=== PATIENT | male | born 1945 | race Caucasian/White ===

== ENCOUNTER 2016-03-16 14:19 | Inpatient (IN) | payer MEDICARE, OTHER ==
[2016-03-16] MEDS ORDERED: Sodium Chloride 0.9% 1000 ML 1,000 ML IV STA (14:54)
[2016-03-16] MEDS ORDERED: Sodium Chloride 0.9% 1000 ML 1,000 ML ONE (15:01)
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
[2016-03-16 15:05] LABS: BASOPHIL % 0.4 % (0.0-0.4); Granulocytes % 54.5 % (36.0-66.0); Lymphocytes % 33.1 % (24.0-44.0); Mean Cell Volume 83.4 fl (78-100); Mean Corpuscular Hemoglobin 26.8 pg (26-32); Mean Platelet Volume 9.6 fl (6-9.5); Platelet Count 270 K/mm3 (150-450); Red Blood Count 5.97 M/mm3 (4.1-5.6); Red Cell Distribution Width 16.2 % (11.5-14.0)
--- NOTE | 2016-03-16 15:21 | XRAY ---
Indication: Acute mental status change. Weakness. Comparison: November 29, 2015 Portable chest remains clear with a few calcified granulomas. Heart is not enlarged and again demonstrates previous CABG surgery. Vascularity normal. Bony thorax intact again with multilevel spinal fusion surgery and intact hardware. Impression: Stable nonacute chest with chronic features.
--- NOTE | 2016-03-16 15:22 | XRAY ---
Indication: Acute mental status change. Unresponsive. Multiple contiguous axial images obtained through the head without contrast. Comparison: None Ventriculosulcal pattern appears symmetric. No acute intracranial hemorrhage, abnormal extra-axial fluid collection, or mass effect. Fourth ventricle is midline without hydrocephalus. Bony calvarium intact. Minimal mucosal thickening of both ethmoid and both maxillary sinuses without fluid leveling. Mastoid air cells are pneumatized and clear. Impression: No acute intracranial abnormalities. Incidental paranasal sinus disease. CTDI is 61.17
[2016-03-16 15:51] LABS: ALBUMIN 3.7 g/dL (3.4-5.0); ALKALINE PHOSPHATASE 312 U/L (46-116); BILIRUBIN,TOTAL 0.9 mg/dL (0.2-1.0); BLOOD UREA NITROGEN 17 mg/dL (9-20); CHLORIDE 105 mEq/L (98-107); Carbon Dioxide 30.4 mEq/L (21-32); Glucose 107 MG/DL (70-110); Potassium 4.1 mEq/L (3.5-5.1); SGOT/AST 230 U/L (15-37); SGPT/ALT 190 U/L (12-78); SODIUM 142 mEq/L (136-145); Total Protein 8.1 gm/dL (6.4-8.2)
[2016-03-16 15:58] LABS: TROPONIN < 0.017 ng/ml (0.000-0.056)
[2016-03-16 16:33] LABS: Collection Type VOID
[2016-03-16 16:36] LABS: COMPLETE URINE MICROSCOPIC? YES
[2016-03-16 16:37] LABS: Bacteria PACKED /HPF (NEGATIVE); Epithelial Cells FEW /HPF (FEW); WBC >100 /HPF (0-5)
[2016-03-16] MEDS ORDERED: Zofran 4 MG/2 ML VIAL IV PRN (17:16)
[2016-03-16] MEDS ORDERED: TYLENOL 325 MG PO PRN (17:16)
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
[2016-03-16] MEDS: Sodium Chloride 0.9% 1000 ML 1,000 ML IV SCH (18:36)
[2016-03-16] MEDS: PROTONIX 40 MG IV IV SCH (18:39)
[2016-03-16] MEDS: Zosyn 3.375GM/100 Ml D5W 100 ML IV SCH ×2 (18:53→23:26)
[2016-03-16] MEDS ORDERED: Imdur 60MG PO ONE (19:02)
[2016-03-16] MEDS: MORPHINE SULFATE 2 MG INJ IV PRN (19:35)
[2016-03-16] MEDS ORDERED: ECOTRIN 81 MG PO ONE (20:00)
[2016-03-16] MEDS ORDERED: PLAVIX 75 MG Tablet PO ONE (20:00)
[2016-03-16] MEDS ORDERED: Colace 100 MG PO ONE (20:00)
[2016-03-16] MEDS ORDERED: Effexor XR 75 MG PO ONE (20:00)
[2016-03-16] MEDS: Ms Contin 100 MG PO SCH (23:27)
[2016-03-16] MEDS: ZOCOR 20MG PO SCH (23:27)
[2016-03-16] MEDS: Toprol-Xl 25MG Tablets PO SCH (23:27)
[2016-03-16] MEDS: Senokot-S Tablet PO SCH (23:28)
[2016-03-17] MEDS: MORPHINE SULFATE 2 MG INJ IV PRN (05:28)
[2016-03-17] MEDS: Zosyn 3.375GM/100 Ml D5W 100 ML IV SCH ×4 (05:31→23:54)
[2016-03-17] MEDS: Sodium Chloride 0.9% 1000 ML 1,000 ML IV SCH ×2 (05:36→15:25)
[2016-03-17 06:05] LABS: BASOPHIL % 0.4 % (0.0-0.4); Granulocytes % 55.3 % (36.0-66.0); Lymphocytes % 30.9 % (24.0-44.0); Mean Corpuscular Hemoglobin 26.9 pg (26-32); Mean Platelet Volume 9.9 fl (6-9.5); Monocytes % 10.4 % (0.0-12.0); Platelet Count 244 K/mm3 (150-450); Red Blood Count 5.01 M/mm3 (4.1-5.6); White Blood Count 5.4 K/mm3 (4.0-10.5)
[2016-03-17 06:18] LABS: ALKALINE PHOSPHATASE 260 U/L (46-116); ANION GAP 10.6 MEQ/L (5-15); BILIRUBIN,TOTAL 0.3 mg/dL (0.2-1.0); BLOOD UREA NITROGEN 15 mg/dL (9-20); CHLORIDE 109 mEq/L (98-107); Carbon Dioxide 28.7 mEq/L (21-32); Glucose 111 MG/DL (70-110); Potassium 4.1 mEq/L (3.5-5.1); SGOT/AST 124 U/L (15-37); SGPT/ALT 173 U/L (12-78); SODIUM 144 mEq/L (136-145); Total Protein 6.5 gm/dL (6.4-8.2)
[2016-03-17] MEDS ORDERED: NON-FORMULARY ITEM (Fluticasone/Vilanterol [Breo Ellipta 100-25 Mcg Inh] 1 EACH) IH PRN (06:53)
[2016-03-17] MEDS ORDERED: xanAX 0.5 MG PO PRN (06:53)
[2016-03-17] MEDS ORDERED: Duragesic 25MCG Patch TOP SCH (07:00)
[2016-03-17] MEDS ORDERED: Nitrostat 0.4 MG (ED) SL SCH (07:00)
[2016-03-17] MEDS: Colace 100 MG PO SCH ×4 (07:52→21:07)
[2016-03-17] MEDS: Advair Hfa 115/21 Common canister IH SCH ×2 (08:04→19:27)
[2016-03-17] MEDS: Dulcolax 10 MG SUPP RC SCH (08:11)
[2016-03-17] MEDS ORDERED: NON-FORMULARY ITEM (Multivitamin [Multivitamins] 1 EACH) PO SCH (10:00)
[2016-03-17] MEDS ORDERED: NON-FORMULARY ITEM (Venlafaxine Hcl [Venlafaxine Hcl Er] 150 MG) PO SCH (10:00)
[2016-03-17] MEDS ORDERED: NON-FORMULARY ITEM (Ranitidine Hcl [Zantac] 150 MG) PO SCH (10:00)
[2016-03-17] MEDS ORDERED: OMEGA ACID ETHYL ESTERS PO SCH (10:00)
--- NOTE | 2016-03-17 10:01 | XRAY ---
Indication: Elevated liver enzymes. Cholecystectomy. Two-dimensional right upper quadrant abdominal sonogram performed. Comparison: December 21, 2014 Gallbladder is now surgically absent. Common bile duct measures 5.4 mm. No intrahepatic biliary distention. Visualized portions of the liver, pancreas, and right kidney appear sonographically unremarkable. No ascites. Right kidney measures 9.4 cm in length. Impression: Cholecystectomy. Remaining right upper quadrant abdominal sonogram is negative.
[2016-03-17] MEDS: THERAGRAN MULTIVITAMIN PO SCH (10:45)
[2016-03-17] MEDS: Imdur 60MG PO SCH (10:46)
[2016-03-17] MEDS: Effexor XR 75 MG PO SCH (10:46)
[2016-03-17] MEDS: ECOTRIN 81 MG PO SCH (10:46)
[2016-03-17] MEDS: Pepcid 20 MG PO SCH ×2 (10:46→21:07)
[2016-03-17] MEDS: Miralax Powder 17GM PACKET PO SCH (10:47)
[2016-03-17] MEDS: ENOXAPARIN SODIUM SQ SCH (10:48)
[2016-03-17] MEDS: Ms Contin 100 MG PO SCH ×2 (10:48→21:07)
[2016-03-17] MEDS: PLAVIX 75 MG Tablet PO SCH (10:48)
[2016-03-17] MEDS: FEOSOL 325 MG PO SCH (10:48)
[2016-03-17] MEDS: Toprol-Xl 25MG Tablets PO SCH ×2 (10:49→21:07)
[2016-03-17] MEDS: PROTONIX 40 MG IV IV SCH (10:49)
--- NOTE | 2016-03-17 14:01 | PCM.NOTE ---
Date and Time: 03/17/16 1356 Subjective Assessment: more alert today but having his chronic pains across his abdomen this is usually helped with his TENS unit. no new symptoms eating well. No focal symptoms. Objective Exam General Appearance: no apparent distress, alert Neurologic Exam: oriented x 3, cooperative Skin Exam: warm, dry, No rash Eye Exam: No scleral icterus, No pale conjunctivae Ears, Nose, Throat Exam: moist mucous membranes Neck Exam: non-tender, supple Respiratory Exam: normal breath sounds, lungs clear Cardiovascular Exam: regular rate/rhythm, normal heart sounds Gastrointestinal/Abdomen Exam: soft, No normal bowel sounds (hypoactive), No tenderness Extremity Exam: other (paralysis bilaterla lower legs), No mykel's sign, No pedal edema OBJECTIVE DATA Vital Signs: Vital Signs - 24 hr Temp Pulse Resp BP BP Pulse Ox 03/17/16 12:00 98.4 F 68 18 133/91 98 03/17/16 07:16 98.2 F 58 L 20 151/70 94 L 03/17/16 07:00 67 18 93 L 03/17/16 04:00 97.8 F 60 18 135/62 91 L 03/17/16 01:00 97.9 F 82 20 115/76 97 03/17/16 00:00 97.9 F 82 20 115/76 97 03/16/16 19:42 98 03/16/16 19:33 97.7 F 61 20 196/93 97 03/16/16 18:05 97.5 F 90 20 199/98 99 03/16/16 17:30 99 03/16/16 17:09 97.5 F 90 20 199/98 99 03/16/16 16:50 97.5 F 90 20 199/98 99 03/16/16 16:15 78 16 162/76 97 Oxygen-Last 24 hours O2 Percentage 2 Liters = 28% O2 Percentage 2 Liters = 28% O2 Percentage 2 Liters = 28% Pain Assessment - Last Documented Pain Intensity 7 Pain Scale Used 0-10 Pain Scale Intake and Output: Intake & Output 03/15/16 03/16/16 03/17/16 03/18/16 11:59 11:59 11:59 11:59 Intake Total 1659 480 Output Total 1150 Balance 509 480 Weight 91.852 kg Lab Results: Accuchecks Date 03/17/16 Date 03/17/16 Date 03/16/16 Time 11:30 Time 07:30 Time 22:00 Accucheck Value: 109 Accucheck Value: 109 Accucheck Value: 155 Lab Results-Last 24 Hours 03/16/16 03/17/16 03/17/16 Range/Units 17:33 05:25 05:25 WBC 5.4 (4.0-10.5) K/mm3 RBC 5.01 (4.1-5.6) M/mm3 Hgb 13.5 (12.5-18.0) gm/dl Hct 42.6 (42-50) % MCV 85.0 (78-100) fl MCH 26.9 (26-32) pg MCHC 31.7 L (32-36) g/dl RDW 16.0 H (11.5-14.0) % Plt Count 244 (150-450) K/mm3 MPV 9.9 H (6-9.5) fl Gran % 55.3 (36.0-66.0) % Lymphocytes % 30.9 (24.0-44.0) % Monocytes % 10.4 (0.0-12.0) % Eosinophils % 3.0 (0.00-5.0) % Basophils % 0.4 (0.0-0.4) % Basophils # 0.02 (0-0.4) Sodium 144 (136-145) mEq/L Potassium 4.1 (3.5-5.1) mEq/L Chloride 109 H (98-107) mEq/L Carbon Dioxide 28.7 (21-32) mEq/L Anion Gap 10.6 (5-15) MEQ/L BUN 15 (9-20) mg/dL Creatinine 0.79 (0.55-1.30) mg/dl Estimated GFR > 60 ML/MIN Glucose 111 H (70-110) MG/DL Hemoglobin A1c 5.4 (4.5-6.2) Calcium 8.4 L (8.5-10.1) mg/dL Total Bilirubin 0.3 (0.2-1.0) mg/dL AST 124 H (15-37) U/L ALT 173 H (12-78) U/L Alkaline Phosphatase 260 H (46-116) U/L Serum Total Protein 6.5 (6.4-8.2) gm/dL Albumin 3.0 L (3.4-5.0) g/dL Prealbumin 19.5 (18.0-35.7) mg/dL Radiology Exams: Radiology Procedures Category Date Time Status Ultrasound Liver or Spleen [LIVER OR SPLEEN] [US] Exams 03/17/16 09:00 Completed Routine Multi-Disciplinary Progress Notes: Multi-Disciplinary Progress Notes 03/17/16 10:06 Case Management Note by Louise Gillette SPOKE WITH AND PT .SHE DOES MOST OF HIS CARE . HAS VISITING NURSE COME 2 DAYS A WEEK. DENIES ANY NEEDS AT THIS TIME WILL CONT TO MONITOR ALL DISCHARGE NEEDS. Initialized on 03/17/16 10:06 - END OF NOTE Assessment/Plan (1) UTI (urinary tract infection) Current Visit: Yes Status: Acute Assessment & Plan: continue zosyn pending culture with the elevated liver enzymes and the acute encephalopathy with normal ammonia likely from the toxic encephalopathy assicated with the UTI as well as build up of his sedating medications try to cut back on his sedating medications and simplify the pain treatment the morphine down to ER 100mg bid now wihtout the fentanyl and hold the benzodiazepines and cut back a little on the lyrica to 150 bid Code(s): N39.0 - URINARY TRACT INFECTION, SITE NOT SPECIFIED (2) Encephalopathy acute Current Visit: Yes Status: Acute Code(s): G93.40 - ENCEPHALOPATHY, UNSPECIFIED (3) Abnormal transaminases Current Visit: Yes Status: Acute Assessment & Plan: improving await liver u/s had ct abd/pelvis 2 months ago Code(s): R74.0 - NONSPEC ELEV OF LEVELS OF TRANSAMNS & LACTIC ACID DEHYDRGNSE (4) Chronic back pain Current Visit: Yes Status: Chronic Code(s): M54.9 - DORSALGIA, UNSPECIFIED; G89.29 - OTHER CHRONIC PAIN (5) Hypertension Current Visit: Yes Status: Chronic Code(s): I10 - ESSENTIAL (PRIMARY) HYPERTENSION (6) Coronary artery disease Current Visit: Yes Status: Chronic Code(s): I25.10 - ATHSCL HEART DISEASE OF [place] CORONARY ARTERY W/O ANG PCTRS (7) Neurogenic bowel Current Visit: Yes Status: Chronic Code(s): K59.2 - NEUROGENIC BOWEL, NOT ELSEWHERE CLASSIFIED (8) Neurogenic bladder Current Visit: Yes Status: Chronic Code(s): N31.9 - NEUROMUSCULAR DYSFUNCTION OF BLAD[place], UNSPECIFIED
[2016-03-17] MEDS ORDERED: TYLENOL 325 MG PO PRN (14:20)
[2016-03-17] MEDS ORDERED: Imdur 60MG PO ONE (18:58)
[2016-03-17] MEDS: ZOCOR 20MG PO SCH (21:07)
[2016-03-17] MEDS: LYRICA 150MG PO SCH (21:07)
[2016-03-17] MEDS: Senokot-S Tablet PO SCH ×2 (21:08)
[2016-03-17] MEDS ORDERED: NON-FORMULARY ITEM (Lorazepam [Ativan] 2 MG) PO SCH (22:00)
[2016-03-18] MEDS: Sodium Chloride 0.9% 1000 ML 1,000 ML IV SCH ×2 (03:32→15:56)
[2016-03-18] MEDS: Zosyn 3.375GM/100 Ml D5W 100 ML IV SCH ×3 (05:25→18:29)
[2016-03-18] MEDS: Advair Hfa 115/21 Common canister IH SCH ×2 (06:37→19:06)
[2016-03-18] MEDS: PROTONIX 40 MG IV IV SCH (09:49)
[2016-03-18] MEDS: Miralax Powder 17GM PACKET PO SCH (09:49)
[2016-03-18] MEDS: Ms Contin 100 MG PO SCH ×2 (09:50→21:20)
[2016-03-18] MEDS: Imdur 60MG PO SCH (09:50)
[2016-03-18] MEDS: FEOSOL 325 MG PO SCH (09:50)
[2016-03-18] MEDS: PLAVIX 75 MG Tablet PO SCH (09:50)
[2016-03-18] MEDS: Toprol-Xl 25MG Tablets PO SCH ×2 (09:50→21:20)
[2016-03-18] MEDS: Effexor XR 75 MG PO SCH (09:50)
[2016-03-18] MEDS: ECOTRIN 81 MG PO SCH (09:50)
[2016-03-18] MEDS: LYRICA 150MG PO SCH ×2 (09:50→21:20)
[2016-03-18] MEDS: ENOXAPARIN SODIUM SQ SCH (09:50)
[2016-03-18] MEDS: THERAGRAN MULTIVITAMIN PO SCH (09:50)
[2016-03-18] MEDS: Pepcid 20 MG PO SCH ×2 (09:50→21:20)
[2016-03-18] MEDS: Colace 100 MG PO SCH ×3 (09:52→21:20)
--- NOTE | 2016-03-18 20:49 | PCM.NOTE ---
Date and Time: 03/18/162044 Subjective Assessment: Feeling better yesterday drowsy this am still with the chronic pains in the abdomen wrapping around. BP running high losartan was stopped recentl. Objective Exam General Appearance: obese Neurologic Exam: oriented x 3, cooperative, other (somewhat slow response time today) Skin Exam: warm, dry Eye Exam: No scleral icterus Ears, Nose, Throat Exam: moist mucous membranes Neck Exam: non-tender, supple Respiratory Exam: normal breath sounds, lungs clear Cardiovascular Exam: regular rate/rhythm, normal heart sounds Gastrointestinal/Abdomen Exam: soft, normal bowel sounds, No tenderness Extremity Exam: normal inspection, No calf tenderness, No pedal edema OBJECTIVE DATA Vital Signs: Vital Signs - 24 hr Temp Pulse Resp BP Pulse Ox 03/18/16 19:09 60 18 93 L 03/18/16 16:00 97.8 F 63 18 151/70 95 03/18/16 11:28 97.5 F 53 L 18 197/89 95 03/18/16 06:56 98.1 F 61 20 170/79 94 L 03/18/16 06:39 62 16 94 L 03/18/16 04:00 98.3 F 54 L 17 167/90 96 03/18/16 00:00 97.9 F 65 17 172/83 92 L Pain Assessment - Last Documented Pain Intensity 4 Pain Scale Used 0-10 Pain Scale Intake and Output: Intake & Output 03/16/16 03/17/16 03/18/16 03/19/16 11:59 11:59 11:59 11:59 Intake Total 4012 1729 Output Total 3350 1600 Balance 662 129 Weight 92.986 kg Multi-Disciplinary Progress Notes: Multi-Disciplinary Progress Notes 03/18/16 13:22 Case Management Note by Louise Gillette AN IMPORTANT MESSAGE FROM MEDICARE GIVEN TO PT. SIGNED COPY TO CHART AND TO PT. Initialized on 03/18/16 13:22 - END OF NOTE 03/18/16 10:23 Case Management Note by Louise Gillette SPOKE WITH AND PT . PT HAS HHC AT HOME AND DOES ALL HIS CARE. WILL CONT TO MONITOR ALL DISCHARGE NEEDS. GIVEN INFORMATION ON FRUIT STUFFER WITH CATH PT. Initialized on 03/18/16 10:23 - END OF NOTE Assessment/Plan (1) UTI (urinary tract infection) Current Visit: Yes Status: Acute Assessment & Plan: culture pending improving on the zosyn the encephalopathy is improving suspect secondary to the infection with the narcotics and benzo the chinyere was aded back but only 1 dose last night and lower dose at 150 will continue this for now and see if this causes any increase in his encephalopathy await culture results priot o change to po antibiotics with the q4h straight cathing still for neurogenic bladder. Code(s): N39.0 - URINARY TRACT INFECTION, SITE NOT SPECIFIED (2) Encephalopathy acute Current Visit: Yes Status: Acute Code(s): G93.40 - ENCEPHALOPATHY, UNSPECIFIED (3) Abnormal transaminases Current Visit: Yes Status: Acute Assessment & Plan: liver u/s ok repeat trend in am hepatitis panel is pending Code(s): R74.0 - NONSPEC ELEV OF LEVELS OF TRANSAMNS & LACTIC ACID DEHYDRGNSE (4) Chronic back pain Current Visit: Yes Status: Chronic Code(s): M54.9 - DORSALGIA, UNSPECIFIED; G89.29 - OTHER CHRONIC PAIN (5) Hypertension Current Visit: Yes Status: Chronic Code(s): I10 - ESSENTIAL (PRIMARY) HYPERTENSION (6) Coronary artery disease Current Visit: Yes Status: Chronic Code(s): I25.10 - ATHSCL HEART DISEASE OF [place] CORONARY ARTERY W/O ANG PCTRS (7) Neurogenic bowel Current Visit: Yes Status: Chronic Code(s): K59.2 - NEUROGENIC BOWEL, NOT ELSEWHERE CLASSIFIED (8) Neurogenic bladder Current Visit: Yes Status: Chronic Code(s): N31.9 - NEUROMUSCULAR DYSFUNCTION OF BLADDER, UNSPECIFIED
[2016-03-18] MEDS: Cozaar 50 MG PO SCH (21:19)
[2016-03-18] MEDS: ZOCOR 20MG PO SCH (21:20)
[2016-03-18] MEDS: Senokot-S Tablet PO SCH ×2 (21:20→21:21)
[2016-03-19] MEDS: Zosyn 3.375GM/100 Ml D5W 100 ML IV SCH ×2 (00:01→05:12)
[2016-03-19 01:12] LABS: HEPATITIS B VIRUS CORE TOT AB Non-Reactive (Non-Reactive); Hepatitis B Surface Ab.Quant. <3.50 mIU/mL (0.00-8.49)
[2016-03-19] MEDS: Sodium Chloride 0.9% 1000 ML 1,000 ML IV SCH (05:11)
[2016-03-19 06:06] LABS: BILIRUBIN,TOTAL 0.3 mg/dL (0.2-1.0); Direct Bilirubin 0.11 MG/DL (0.0-0.2); Total Protein 6.7 gm/dL (6.4-8.2)
[2016-03-19] MEDS: Advair Hfa 115/21 Common canister IH SCH (06:36)
[2016-03-19 08:06] VITALS: BP 182/90; PULSE 60; O2SAT 97
--- NOTE | 2016-03-19 08:43 | PCM.DCORD ---
- Discharge Discharge Date: 03/19/16 Disposition: Home, Self-Care Condition: Stable Prescriptions: Amoxicillin/Potassium Clav [Augmentin 875-125 Tablet] 875 mg PO BID #14 tablet Losartan/Hydrochlorothiazide [Losartan-Hctz 100-12.5 mg Tab] 1 each PO DAILY #0 tablet Pregabalin [Lyrica 150Mg] 150 mg PO BID #60 capsule Medications: Home Medications Alprazolam [Xanax 0.5 mg] 0.5 mg PO Q6HPRN PRN 06/03/15 [Confirmed 03/16/16] Aspirin [Aspir-Low] 81 mg PO DAILY 06/03/15 [Confirmed 03/16/16] Bisacodyl 10 mg [Dulcolax 10 MG SUPP] 10 mg RC UD 06/03/15 [Confirmed 05/01] Docusate Sodium 100 mg [Colace 100 MG] 100 mg PO UD 06/03/15 [Confirmed ] Fluticasone/Vilanterol [Breo Ellipta 100-25 Mcg INH] 1 each IH BIDPRN PRN [Confirmed 03/16/16] Lorazepam [Ativan] 2 mg PO HS 06/03/15 [Confirmed 03/16/16] Morphine Sulfate [Morphine Sulfate ER] 100 mg PO TIDPRN PRN 06/03/15 [Confirmed 03/16/16] Multivitamin [Multivitamins] 1 each PO DAILY 06/03/15 [Confirmed 03/16/16] [place]-3 Acid Ethyl Esters [Lovaza] 2 cap PO BID 06/03/15 [Confirmed 03/16/16] Polyethylene Glycol 3350 17 gm PO QAM 06/03/15 [Confirmed 03/16/16] Venlafaxine HCl [Venlafaxine HCl ER] 150 mg PO DAILY 06/03/15 [Confirmed ] Cranberry Extract [Cranberry] 500 mg PO DAILY 12/25/15 [Confirmed 03/16/16] Ferrous Sulfate 325 mg [Feosol 325 mg] 325 mg PO DAILY 12/25/15 [ Confirmed 03/16/16] Metoprolol Succinate 25 mg Xl* [Toprol-Xl 25MG Tablets] 25 mg PO BID [Confirmed 03/16/16] Nitroglycerin 0.4 mg (Ed) [Nitrostat 0.4 MG (ED)] 0.4 mg SL UD 12/25/15 [ Confirmed 03/16/16] Ranitidine HCl [Zantac] 150 mg PO BID 12/25/15 [Confirmed 03/16/16] Sennosides/Docusate Sodium [Senna Laxative Tablet] 2 each PO HS 12/25/15 [ Confirmed 03/16/16] Atorvastatin Calcium 40 mg DAILY 03/16/16 [Confirmed 03/16/16] Clopidogrel Bisulfate 75 mg [PLAVIX 75 MG Tablet] 75 mg DAILY 03/16/16 [ Confirmed 03/16/16] Fentanyl 25Mcg Patch [Duragesic 25MCG Patch] 25 mcg TOP Q3D 03/16/16 [ Confirmed 03/16/16] Pregabalin [Lyrica] 225 mg PO BID 03/17/16 [Confirmed 03/17/16] Active Inpatient Medications Acetaminophen (Tylenol 325 Mg) 650 mg PO Q4H PRN PRN PRN Reason: PAIN AND/OR FEVER Stop: 04/15/16 17:15 Last Admin: 03/17/16 15:11 Dose: 650 mg Acetaminophen (Tylenol 325 Mg) 325 mg PO Q4H PRN PRN PRN Reason: PAIN, FEVER, HEADACHE Stop: 04/16/16 14:19 Aspirin (Ecotrin 81 Mg) 81 mg PO DAILY [facility] Stop: 04/16/16 09:59 Last Admin: 03/18/16 09:50 Dose: 81 mg Bisacodyl (Dulcolax 10 Mg Supp) 10 mg RC QOD [facility] Stop: 04/16/16 09:59 Last Admin: 03/17/16 08:11 Dose: 10 mg Clopidogrel Bisulfate (Plavix 75 Mg Tablet) 75 mg PO DAILY [facility] Stop: 04/16/16 09:59 Last Admin: 03/18/16 09:50 Dose: 75 mg Docusate Sodium (Colace 100 Mg) 200 mg PO QAM [facility] Stop: 04/16/16 06:59 Last Admin: 03/18/16 09:52 Dose: 200 mg Docusate Sodium (Colace 100 Mg) 100 mg PO LUNCH [facility] Stop: 04/16/16 11:59 Last Admin: 03/18/16 12:01 Dose: 100 mg Docusate Sodium (Colace 100 Mg) 200 mg PO QPM [facility]AI Stop: 04/16/16 21:59 Last Admin: 03/18/16 21:20 Dose: 200 mg Enoxaparin Sodium (Enoxaparin Sodium) 40 mg SQ DAILY [facility] Stop: 04/16/16 09:59 Last Admin: 03/18/16 09:50 Dose: 40 mg Famotidine (Pepcid 20 Mg) 20 mg PO BID [facility] Stop: 04/16/16 09:59 Last Admin: 03/18/16 21:20 Dose: 20 mg Ferrous Sulfate (Feosol 325 Mg) 325 mg PO DAILY [facility] Stop: 04/16/16 09:59 Last Admin: 03/18/16 09:50 Dose: 325 mg Sodium Chloride (Sodium Chloride 0.9% 1000 Ml) 1,000 mls @ 100 mls/hr IV .Q10H [facility] Stop: 04/15/16 17:15 Last Admin: 03/19/16 05:11 Dose: 100 mls/hr Piperacillin Sod/Tazobactam Sod (Zosyn 3.375gm/100 Ml D5w) 100 mls @ 100 mls/ hr IV Q6HT [facility] Stop: 04/15/16 17:59 Last Admin: 03/19/16 05:12 Dose: 100 mls/hr Isosorbide Mononitrate (Imdur 60mg) 60 mg PO DAILY [facility] Stop: 04/16/16 09:59 Last Admin: 03/18/16 09:50 Dose: 60 mg Losartan Potassium (Cozaar 50 Mg) 50 mg PO DAILY [facility] Stop: 04/17/16 21:59 Last Admin: 03/18/16 21:19 Dose: 50 mg Metoprolol Succinate (Toprol-Xl 25mg Tablets) 25 mg PO BID [facility] Stop: 04/15/16 21:59 Last Admin: 03/18/16 21:20 Dose: 25 mg Morphine Sulfate (Morphine Sulfate 2 Mg Inj) 2 mg IV Q4H PRN PRN PRN Reason: PAIN Stop: 03/21/16 17:15 Last Admin: 03/17/16 05:28 Dose: 2 mg Morphine Sulfate (Ms Contin 100 Mg) 100 mg PO BID [facility] Stop: 03/21/16 21:59 Last Admin: 03/18/16 21:20 Dose: 100 mg Multivitamins (Theragran Multivitamin) 1 tab PO DAILY [facility] Stop: 04/16/16 09:59 Last Admin: 03/18/16 09:50 Dose: 1 tab Ondansetron HCl (Zofran 4 Mg/2 Ml Vial) 4 mg IV Q6H PRN PRN PRN Reason: NAUSEA/VOMITING Stop: 04/15/16 17:15 Pantoprazole Sodium (Protonix 40 Mg Iv) 40 mg IV Q24H10 [facility] Stop: 04/15/16 17:59 Last Admin: 03/18/16 09:49 Dose: 40 mg Polyethylene Glycol (Miralax Powder 17gm Packet) 17 gm PO QAM [facility] Stop: 04/16/16 09:59 Last Admin: 03/18/16 09:49 Dose: 17 gm Pregabalin (Lyrica 150mg) 150 mg PO BID [facility] Stop: 04/16/16 21:59 Last Admin: 03/18/16 21:20 Dose: 150 mg Fluticasone/Salmeterol (Advair Hfa 115/21 Common Canister*) 2 puff IH BIDRT [facility] Stop: 04/16/16 06:59 Last Admin: 03/19/16 06:36 Dose: 2 puff Senna/Docusate Sodium (Senokot-S Tablet) 1 udtab PO [facility] Stop: 04/15/16 21:59 Last Admin: 03/18/16 21:21 Dose: Not Given Senna/Docusate Sodium (Senokot-S Tablet) 2 udtab PO [facility] Stop: 04/16/16 21:59 Last Admin: 03/18/16 21:20 Dose: 2 udtab Simvastatin (Zocor 20mg) 40 mg PO HS [facility] Stop: 04/15/16 21:59 Last Admin: 03/18/16 21:20 Dose: 40 mg Venlafaxine HCl (Effexor Xr 75 Mg) 150 mg PO DAILY [facility] Stop: 04/16/16 09:59 Last Admin: 03/18/16 09:50 Dose: 150 mg Instructions: Urinary Tract Infection (UTI) Follow up with: MICHELLE MATOS [Primary Care Provider] - 1 Week
--- NOTE | 2016-03-19 08:50 | PCM.DS ---
Discharge Summary Date of Admission: 03/17/16 13:56 Date of Discharge: 03/19/16 Admitting Physician: MICHELLE MATOS Primary Care Provider: MICHELLE MATOS Allergies Allergies No Known Drug Allergies Allergy (Verified 03/16/16 18:44) Hospital Summary - Hospital Course Hospital Course: He presented to ED with altered mental status that had been worsening for 2 weeks with increased fatigue. THis all started after he had several alcoholic drinks on [place] which he usually does not do. He was not eating sleeping all the time very confused. He has paralysis but had no new focal deficits. On arrival he had a UTI and elevated liver enzymes. His lyrica and benzodiazepines where held and his pain medicine was cut back further and his mental status improved greatly with no focal deficits. He continues to have the severe thoracic back pain radiating around to the abdomen and for this was using his TENS unit. He was tested for viral hepatitis negative and the liver enzyme elevation resolved. He was treated with Zosyn and urine culture returned with E. coli sensitive to augmentin and will be discharged home to complete 10 day coarse. He is to not restart his benzodiazepines and continue for now the dose of pain medication we have him on which is 100 mg morphine ER BID and continue to cut back as we are doing in the office until he sees pain mgmt. He has follow up with cardiology in 1 week that was already set up. His losartan was recently stopped by cards but inpatient bp after rehydration and improving mental status has been running 170 to 190 systolic and the losartan was restarted and he will continue on this and monitor the BP. - Vitals & Intake/Output Vital Signs: Vital Signs Temperature 97.7 F 03/19/16 08:00 Pulse Rate 60 03/19/16 08:00 Respiratory Rate 20 03/19/16 08:00 Blood Pressure 182/90 03/19/16 08:00 O2 Sat by Pulse Oximetry 97 03/19/16 08:00 Oxygen-Last Documented O2 Percentage 2 Liters = 28% Intake & Output: Intake & Output 03/16/16 03/17/16 03/18/16 03/19/16 11:59 11:59 11:59 11:59 Intake Total 4012 3558 Output Total 3350 2400 Balance 662 1158 Weight 92.986 kg 90.718 kg - Lab Result Diagrams: 03/17/16 05:25 03/17/16 05:25 Lab Results-Last 24 Hrs: Lab Results-Last 24 Hours 03/19/16 Range/Units 05:40 Total Bilirubin 0.3 (0.2-1.0) mg/dL Direct Bilirubin 0.11 (0.0-0.2) MG/DL AST 29 (15-37) U/L ALT 78 (12-78) U/L Alkaline Phosphatase 195 H (46-116) U/L Serum Total Protein 6.7 (6.4-8.2) gm/dL Albumin 3.0 L (3.4-5.0) g/dL Discharge Exam General Appearance: no apparent distress Neurologic Exam: alert, oriented x 3, cooperative Skin Exam: warm, dry Ears, Nose, Throat Exam: moist mucous membranes Neck Exam: normal inspection, non-tender, supple Respiratory Exam: normal breath sounds Cardiovascular Exam: regular rate/rhythm, normal heart sounds Gastrointestinal/Abdomen Exam: soft, normal bowel sounds, No tenderness Extremity Exam: normal inspection Back Exam: No rash Final Diagnosis/Problem List - Final Discharge Diagnosis/Problem (1) UTI (urinary tract infection) Current Visit: Yes Status: Acute (2) Encephalopathy acute Current Visit: Yes Status: Acute (3) Abnormal transaminases Current Visit: Yes Status: Acute (4) Chronic back pain Current Visit: Yes Status: Chronic (5) Hypertension Current Visit: Yes Status: Chronic (6) Coronary artery disease Current Visit: Yes Status: Chronic (7) Neurogenic bowel Current Visit: Yes Status: Chronic (8) Neurogenic bladder Current Visit: Yes Status: Chronic - Discharge Discharge Date: 03/19/16 Disposition: Home, Self-Care Condition: Stable Prescriptions: Amoxicillin/Potassium Clav [Augmentin 875-125 Tablet] 875 mg PO BID #14 tablet Losartan/Hydrochlorothiazide [Losartan-Hctz 100-12.5 mg Tab] 1 each PO DAILY #0 tablet Pregabalin [Lyrica 150Mg] 150 mg PO BID #60 capsule Medications: Home Medications Aspirin [Aspir-Low] 81 mg PO DAILY 06/03/15 [Confirmed 03/16/16] Bisacodyl 10 mg [Dulcolax 10 MG SUPP] 10 mg RC UD 06/03/15 [Confirmed 05/01] Docusate Sodium 100 mg [Colace 100 MG] 100 mg PO UD 06/03/15 [Confirmed ] Fluticasone/Vilanterol [Breo Ellipta 100-25 Mcg INH] 1 each IH BIDPRN PRN [Confirmed 03/16/16] Multivitamin [Multivitamins] 1 each PO DAILY 06/03/15 [Confirmed 03/16/16] [place]-3 Acid Ethyl Esters [Lovaza] 2 cap PO BID 06/03/15 [Confirmed 03/16/16] Polyethylene Glycol 3350 17 gm PO QAM 06/03/15 [Confirmed 03/16/16] Venlafaxine HCl [Venlafaxine HCl ER] 150 mg PO DAILY 06/03/15 [Confirmed ] Cranberry Extract [Cranberry] 500 mg PO DAILY 12/25/15 [Confirmed 03/16/16] Ferrous Sulfate 325 mg [Feosol 325 mg] 325 mg PO DAILY 12/25/15 [ Confirmed 03/16/16] Metoprolol Succinate 25 mg Xl* [Toprol-Xl 25MG Tablets] 25 mg PO BID [Confirmed 03/16/16] Nitroglycerin 0.4 mg (Ed) [Nitrostat 0.4 MG (ED)] 0.4 mg SL UD 12/25/15 [ Confirmed 03/16/16] Ranitidine HCl [Zantac] 150 mg PO BID 12/25/15 [Confirmed 03/16/16] Sennosides/Docusate Sodium [Senna Laxative Tablet] 2 each PO HS 12/25/15 [ Confirmed 03/16/16] Atorvastatin Calcium 40 mg DAILY 03/16/16 [Confirmed 03/16/16] Clopidogrel Bisulfate 75 mg [PLAVIX 75 MG Tablet] 75 mg DAILY 03/16/16 [ Confirmed 03/16/16] Amoxicillin/Potassium Clav [Augmentin 875-125 Tablet] 875 mg PO BID #14 tablet 03/19/16 Losartan/Hydrochlorothiazide [Losartan-Hctz 100-12.5 mg Tab] 1 each PO DAILY #0 tablet 03/19/16 Morphine Sulfate [Morphine Sulfate ER] 100 mg PO BID #0 03/19/16 [Confirmed 05/01] Pregabalin [Lyrica 150Mg] 150 mg PO BID #60 capsule 03/19/16 Active Inpatient Medications Acetaminophen (Tylenol 325 Mg) 650 mg PO Q4H PRN PRN PRN Reason: PAIN AND/OR FEVER Stop: 04/15/16 17:15 Last Admin: 03/17/16 15:11 Dose: 650 mg Acetaminophen (Tylenol 325 Mg) 325 mg PO Q4H PRN PRN PRN Reason: PAIN, FEVER, HEADACHE Stop: 04/16/16 14:19 Aspirin (Ecotrin 81 Mg) 81 mg PO DAILY [facility] Stop: 04/16/16 09:59 Last Admin: 03/18/16 09:50 Dose: 81 mg Bisacodyl (Dulcolax 10 Mg Supp) 10 mg RC QOD [facility] Stop: 04/16/16 09:59 Last Admin: 03/17/16 08:11 Dose: 10 mg Clopidogrel Bisulfate (Plavix 75 Mg Tablet) 75 mg PO DAILY [facility] Stop: 04/16/16 09:59 Last Admin: 03/18/16 09:50 Dose: 75 mg Docusate Sodium (Colace 100 Mg) 200 mg PO QAM [facility] Stop: 04/16/16 06:59 Last Admin: 03/18/16 09:52 Dose: 200 mg Docusate Sodium (Colace 100 Mg) 100 mg PO LUNCH [facility] Stop: 04/16/16 11:59 Last Admin: 03/18/16 12:01 Dose: 100 mg Docusate Sodium (Colace 100 Mg) 200 mg PO QPM [facility] Stop: 04/16/16 21:59 Last Admin: 03/18/16 21:20 Dose: 200 mg Enoxaparin Sodium (Enoxaparin Sodium) 40 mg SQ DAILY [facility] Stop: 04/16/16 09:59 Last Admin: 03/18/16 09:50 Dose: 40 mg Famotidine (Pepcid 20 Mg) 20 mg PO BID [facility] Stop: 04/16/16 09:59 Last Admin: 03/18/16 21:20 Dose: 20 mg Ferrous Sulfate (Feosol 325 Mg) 325 mg PO DAILY [facility] Stop: 04/16/16 09:59 Last Admin: 03/18/16 09:50 Dose: 325 mg Sodium Chloride (Sodium Chloride 0.9% 1000 Ml) 1,000 mls @ 100 mls/hr IV .Q10H [facility] Stop: 04/15/16 17:15 Last Admin: 03/19/16 05:11 Dose: 100 mls/hr Piperacillin Sod/Tazobactam Sod (Zosyn 3.375gm/100 Ml D5w) 100 mls @ 100 mls/ hr IV Q6HT [facility] Stop: 04/15/16 17:59 Last Admin: 03/19/16 05:12 Dose: 100 mls/hr Isosorbide Mononitrate (Imdur 60mg) 60 mg PO DAILY [facility] Stop: 04/16/16 09:59 Last Admin: 03/18/16 09:50 Dose: 60 mg Losartan Potassium (Cozaar 50 Mg) 50 mg PO DAILY [facility] Stop: 04/17/16 21:59 Last Admin: 03/18/16 21:19 Dose: 50 mg Metoprolol Succinate (Toprol-Xl 25mg Tablets) 25 mg PO BID [facility] Stop: 04/15/16 21:59 Last Admin: 03/18/16 21:20 Dose: 25 mg Morphine Sulfate (Morphine Sulfate 2 Mg Inj) 2 mg IV Q4H PRN PRN PRN Reason: PAIN Stop: 03/21/16 17:15 Last Admin: 03/17/16 05:28 Dose: 2 mg Morphine Sulfate (Ms Contin 100 Mg) 100 mg PO BID [facility] Stop: 03/21/16 21:59 Last Admin: 03/18/16 21:20 Dose: 100 mg Multivitamins (Theragran Multivitamin) 1 tab PO DAILY [facility] Stop: 04/16/16 09:59 Last Admin: 03/18/16 09:50 Dose: 1 tab Ondansetron HCl (Zofran 4 Mg/2 Ml Vial) 4 mg IV Q6H PRN PRN PRN Reason: NAUSEA/VOMITING Stop: 04/15/16 17:15 Pantoprazole Sodium (Protonix 40 Mg Iv) 40 mg IV Q24H10 [facility] Stop: 04/15/16 17:59 Last Admin: 03/18/16 09:49 Dose: 40 mg Polyethylene Glycol (Miralax Powder 17gm Packet) 17 gm PO QAM [facility] Stop: 04/16/16 09:59 Last Admin: 03/18/16 09:49 Dose: 17 gm Pregabalin (Lyrica 150mg) 150 mg PO BID [facility] Stop: 04/16/16 21:59 Last Admin: 03/18/16 21:20 Dose: 150 mg Fluticasone/Salmeterol (Advair Hfa 115/21 Common Canister*) 2 puff IH BIDRT [facility] Stop: 04/16/16 06:59 Last Admin: 03/19/16 06:36 Dose: 2 puff Senna/Docusate Sodium (Senokot-S Tablet) 1 udtab PO HS [facility] Stop: 04/15/16 21:59 Last Admin: 03/18/16 21:21 Dose: Not Given Senna/Docusate Sodium (Senokot-S Tablet) 2 udtab PO HS [facility] Stop: 04/16/16 21:59 Last Admin: 03/18/16 21:20 Dose: 2 udtab Simvastatin (Zocor 20mg) 40 mg PO HS [facility] Stop: 04/15/16 21:59 Last Admin: 03/18/16 21:20 Dose: 40 mg Venlafaxine HCl (Effexor Xr 75 Mg) 150 mg PO DAILY [facility] Stop: 04/16/16 09:59 Last Admin: 03/18/16 09:50 Dose: 150 mg Instructions: Urinary Tract Infection (UTI) Follow up with: MICHELLE MATOS [Primary Care Provider] - 1 Week
[2016-03-19] MEDS: Imdur 60MG PO SCH (09:02)
[2016-03-19] MEDS: Ms Contin 100 MG PO SCH (09:02)
[2016-03-19] MEDS: PLAVIX 75 MG Tablet PO SCH (09:02)
[2016-03-19] MEDS: PROTONIX 40 MG IV IV SCH (09:02)
[2016-03-19] MEDS: Effexor XR 75 MG PO SCH (09:02)
[2016-03-19] MEDS: FEOSOL 325 MG PO SCH (09:02)
[2016-03-19] MEDS: Toprol-Xl 25MG Tablets PO SCH (09:02)
[2016-03-19] MEDS: Pepcid 20 MG PO SCH (09:02)
[2016-03-19] MEDS: Miralax Powder 17GM PACKET PO SCH (09:03)
[2016-03-19] MEDS: LYRICA 150MG PO SCH (09:03)
[2016-03-19] MEDS: THERAGRAN MULTIVITAMIN PO SCH (09:03)
[2016-03-19] MEDS: ENOXAPARIN SODIUM SQ SCH (09:03)
[2016-03-19] MEDS: Colace 100 MG PO SCH (09:03)
[2016-03-19] MEDS: Cozaar 50 MG PO SCH (09:03)
[2016-03-19] MEDS: Dulcolax 10 MG SUPP RC SCH (09:04)
== END 2016-03-19 10:58 | disposition home health service (06) | DRG 689 ==
LOC: ED 14:19 → MED SURG 17:08 → OBSVTOIN 03-17 13:56
PROVIDERS: ADMIT Family Medicine; ATTEND Family Medicine
DX: N39.0 Urinary tract infection, site not specified (principal); G93.40 Encephalopathy, unspecified; I25.810 Atherosclerosis of coronary artery bypass graft(s) without angina pectoris; K59.2 Neurogenic bowel, not elsewhere classified; R74.0 Nonspecific elevation of levels of transaminase and lactic acid dehydrogenase [LDH]; M54.9 Dorsalgia, unspecified; G89.29 Other chronic pain; I10 Essential (primary) hypertension; I50.9 Heart failure, unspecified; N31.9 Neuromuscular dysfunction of bladder, unspecified; Z79.899 Other long term (current) drug therapy; I25.2 Old myocardial infarction; Z85.038 Personal history of other malignant neoplasm of large intestine; Z90.49 Acquired absence of other specified parts of digestive tract
CPT/HCPCS: 36000; 36415; 70450; 71010; 76705; 80053; 80074; 80076; 80307; 81000; 82140; 82962; 83036; 83605; 83880; 84134; 84484; 85025; 87040; 87077; 87086; 87186; 93005; 93268; 94640; 94760; 96360; 96361; 99284; G0378; J1650; J2270; J2543; P9612

== ENCOUNTER 2016-05-18 14:25 | Emergency (ER) | payer MEDICARE, OTHER ==
[2016-05-18 14:32] VITALS: O2SAT 96
--- NOTE | 2016-05-18 14:41 | ERPHSYRPT ---
- History of Present Illness Time Seen by Provider: 05/18/16 14:26 Historian: patient, family, EMS, old records Exam Limitations: clinical condition (poor memory for hx) Patient Subjective Stated Complaint: PT REPORTS ALL OVER ABD PAIN BEGINNING DIANA 3 DAYS AGO-PROGRESSIVELY WORSE-DENIES DIFFICULTY WTIH URINATION-LAST BOWEL MOVEMENT THIS AM Triage Nursing Assessment: PT PINK WARM ET DRY-A & O X 3-ABD NONTENDER TO PALP- RESP NONLABORED Physician History: patient with 3 day hx of progressive abdominal pain; diffuse; no radiation; no localization; no fever; some N without emesis; parllysis from fall below nexk; BM fair for such; self caths; no recent trauma; recent bowel resection for CAncer; Timing/Duration: today (worse), day(s) (3) Activities at Onset: rest Quality: pressure, sharpness Abdominal Pain Onset Location: generalized abdomen Pain Radiation: no radiation Severity of Pain-Max: severe Severity of Pain-Current: mild (resolved on way to ER) Modifying Factors: Improves With: nothing Associated Symptoms: nausea Previous symptoms: different symptoms Allergies/Adverse Reactions: No Known Drug Allergies Allergy (Verified 05/18/16 14:32) Home Medications: Atorvastatin Calcium [Lipitor] 40 mg PO DAILY 05/18/16 [History] Clopidogrel Bisulfate 75 mg [PLAVIX 75 MG Tablet] 75 mg PO DAILY 05/18/16 [History] Fluticasone/Vilanterol [Breo Ellipta 100-25 Mcg INH] 1 each IH UD 05/18/16 [ History] Isosorbide Mononitrate 60 mg [Imdur 60MG] 60 mg PO DAILY 05/18/16 [History] Losartan/Hydrochlorothiazide [Losartan-Hctz 100-25 mg Tab] 1 each PO BID [History] Metoprolol Succinate 25 mg PO BID 05/18/16 [History] Morphine Sulfate [Morphine Sulfate ER] 100 mg PO BID 05/18/16 [History] Pregabalin [Lyrica 150Mg] 150 mg PO BID 05/18/16 [History] Ranitidine HCl [Zantac] 150 mg PO DAILY 05/18/16 [History] Testosterone Cypionate 200 mg IN UD 05/18/16 [History] Trazodone HCl 50 mg [Desyrel 50 mg] 50 mg PO HS 05/18/16 [History] Venlafaxine HCl [Effexor Xr] 150 mg PO DAILY 05/18/16 [History] Hx Tetanus, Diphtheria Vaccination/Date Given: Yes Hx Influenza Vaccination/Date Given: No Hx Pneumococcal Vaccination/Date Given: No Immunizations Up to Date: Yes - Review of Systems Constitutional: No Symptoms Eyes: No Symptoms Ears, Nose, & Throat: No Symptoms Respiratory: No Cough, No Dyspnea, No Wheezing Cardiac: No Chest Pain, No Palpitations, No Syncope Abdominal/Gastrointestinal: Abdominal Pain, Nausea, Constipation, No Vomiting, No Diarrhea Genitourinary Symptoms: No Symptoms Musculoskeletal: No Symptoms Skin: No Symptoms Neurological: No Symptoms Psychological: No Symptoms Endocrine: No Symptoms Hematologic/Lymphatic: No Symptoms Immunological/Allergic: No Symptoms - Past Medical History Pertinent Past Medical History: Yes Neurological History: Other ENT History: No Pertinent History Cardiac History: Angina, Congestive Heart Failure, Coronary Artery Disease, High Cholesterol, Hypertension, Myocardial Infarction ([place]) Respiratory History: Bronchitis Endocrine Medical History: No Pertinent History Musculoskeletal History: Fractures GI Medical History: GI Bleed History: No Pertinent History Psycho-Social History: No Pertinent History Male Reproductive Disorders: No Pertinent History 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 Left leg operation times 3, COLON CA AND RESECTION IN NOV, - Social History Smoking Status: Former smoker How long have you smoked: 40years Exposure to second hand smoke: No Alcohol Use: None Drug Use: none Patient Lives Alone: No Significant Family History: heart disease, diabetes - Nursing Vital Signs Nursing Vital Signs: Initial Vital Signs Temperature 98.6 F Temperature Source Oral Pulse Rate 70 Respiratory Rate 16 Blood Pressure [] 132/76 Pain Intensity 6 - Physical Exam General Appearance: mild distress, alert, obese Eye Exam: PERRL/EOMI, eyes nml inspection, No photophobia Ears, Nose, Throat Exam: normal ENT inspection, TMs normal, pharynx normal, moist mucous membranes Neck Exam: normal inspection, non-tender, supple, full range of motion, No meningismus, No JVD Respiratory Exam: normal breath sounds, lungs clear, airway intact, No chest tenderness, No respiratory distress Cardiovascular Exam: regular rate/rhythm, normal heart sounds, normal peripheral pulses, capillary refill 2-3 sec, No murmur Gastrointestinal/Abdomen Exam: soft, normal bowel sounds, No tenderness, No distention, No mass, No guarding, No pulsatile mass, No rebound, No organomegaly Male Genitalia Exam: normal genitalia Rectal Exam: deferred Back Exam: normal inspection, normal range of motion, No CVA tenderness, No rash Extremity Exam: normal inspection, pelvis stable, No mykel's sign, No pedal edema Neurologic Exam: alert, oriented x 3, cooperative, development scientist II-XII nml as tested, normal mood/affect, other (parallysis below nipples) Skin Exam: normal color, warm, dry, No rash, No petechiae SpO2 Interpretation: normal SpO2: 96 Oxygen Delivery: Room Air - Course Nursing assessment & vital signs reviewed: Yes - Radiology Exams Abdomen X-ray Interpretation: Interpreted by me, Negative, Other (constipation) Ordered Tests: Active Orders 24 hr Category Date Time Status Cath for Specimen-Straight STAT Care 05/18/16 14:34 Active EKG-ER Only STAT Care 05/18/16 14:34 Active IV Insertion STAT Care 05/18/16 14:34 Active Re-Check Vital Signs STAT Care 05/18/16 14:34 Active OBSTR/ACUTE ABDOMEN SERIES Stat Exams 05/18/16 14:34 Taken AMYLASE Stat Lab 05/18/16 14:46 Completed CBC W DIFF Stat Lab 05/18/16 14:46 Completed CMP Stat Lab 05/18/16 14:46 Completed LIPASE Stat Lab 05/18/16 14:46 Completed TROPONIN Stat Lab 05/18/16 14:46 Completed UA W/ MICROSCOPIC Stat Lab 05/18/16 15:00 Completed Medication Summary Generic Name Dose Route Start Last Admin Trade Name Freq PRN Reason Stop Dose Admin Sodium Chloride 1,000 mls @ 100 mls/hr 05/18/16 14:45 05/18/16 14:57 Sodium Chloride 0.9% 1000 Ml IV 06/17/16 14:44 100 mls/hr .Q10H SHAI Administration Ceftriaxone Sodium/Dextrose 50 mls @ 100 mls/hr 05/18/16 16:25 Rocephin 1 Gm-D5w 50 Ml Bag IV 05/18/16 16:54 STAT ONE Discontinued Medications Generic Name Dose Route Start Last Admin Trade Name Vern PRN Reason Stop Dose Admin Hydromorphone HCl 2 mg 05/18/16 15:00 05/18/16 15:06 Hydromorphone 1 Mg/Ml Ampule IV 05/18/16 15:01 2 mg STAT ONE Administration Hydromorphone HCl Confirm 05/18/16 15:02 Hydromorphone 1 Mg/Ml Ampule Administered 05/18/16 15:03 Dose 2 mg .ROUTE .STK-MED ONE Sodium Chloride Confirm 05/18/16 14:49 Sodium Chloride 0.9% 1000 Ml Administered 05/18/16 14:50 Dose 1,000 mls @ ud .ROUTE .STK-MED ONE Lab/Rad Data: Laboratory Result Diagrams 05/18/16 14:46 05/18/16 14:46 Laboratory Results 05/18/16 05/18/16 05/18/16 Range/Units 15:00 14:46 14:46 WBC 5.6 (4.0-10.5) K/mm3 RBC 5.02 (4.1-5.6) M/mm3 Hgb 14.2 (12.5-18.0) gm/dl Hct 44.1 (42-50) % MCV 87.8 (78-100) fl MCH 28.3 (26-32) pg MCHC 32.2 (32-36) g/dl RDW 17.6 H (11.5-14.0) % Plt Count 235 (150-450) K/mm3 MPV 9.1 (6-9.5) fl Gran % 52.9 (36.0-66.0) % Lymphocytes % 31.8 (24.0-44.0) % Monocytes % 13.1 H (0.0-12.0) % Eosinophils % 1.8 (0.00-5.0) % Basophils % 0.4 (0.0-0.4) % Basophils # 0.02 (0-0.4) Sodium 143 (136-145) mEq/L Potassium 4.0 (3.5-5.1) mEq/L Chloride 103 (98-107) mEq/L Carbon Dioxide 30.7 (21-32) mEq/L Anion Gap 13.6 (5-15) MEQ/L BUN 17 (9-20) mg/dL Creatinine 0.94 (0.55-1.30) mg/dl Estimated GFR > 60 ML/MIN Glucose 102 (70-110) MG/DL Calcium 9.0 (8.5-10.1) mg/dL Total Bilirubin 0.3 (0.2-1.0) mg/dL AST 24 (15-37) U/L ALT 48 (12-78) U/L Alkaline Phosphatase 156 H (46-116) U/L Troponin I < 0.017 (0.000-0.056) ng/ml Serum Total Protein 6.8 (6.4-8.2) gm/dL Albumin 3.2 L (3.4-5.0) g/dL Amylase 83 (25-115) U/L Lipase 265 (73-393) U/L Ur Collection Type CATH Urine Color YELLOW (YELLOW) Urine Appearance CLOUDY (CLEAR) Urine pH 8.5 (5-6) Ur Specific [place] 1.015 (1.005-1.025) Urine Protein 30 (Negative) Urine Glucose (UA) NEGATIVE (NEGATIVE) mg/dL Urine Ketones NEGATIVE (NEGATIVE) Urine Nitrite POSITIVE (NEGATIVE) Urine Bilirubin NEGATIVE (NEGATIVE) Urine Urobilinogen 1 (0-1) mg/dL Urine WBC (Auto) LARGE (NEGATIVE) Urine RBC (Auto) TRACE-INTACT (0-5) Luis M/ul Urine Microscopic RBC 2-5 (0-2) /HPF Urine Microscopic WBC 25-50 (0-5) /HPF Ur Epithelial Cells FEW (FEW) /HPF Urine Bacteria PACKED (NEGATIVE) /HPF Specimen Received 1500 05/18/16 reviewed - Progress Progress: improved (after meds), re-examined (after xr and meds) Progress Note: 05/18/16 14:41 lab and xr pending; patient not in pain now; doesnt want any pain meds now; will discuss more with family when arrives; will recheck after xr 05/18/16 14:42 will cath for ua 05/18/16 15:56 states no relief but resting better and less tenderness on exam; no localization 05/18/16 15:57 urine shows infection on cath; other labs non-diagnostic; xr shows constipation but NAD otherwise 05/18/16 16:28 Dr Jarett Matos consulted; Will treat for UTI and increase home treatment for constipation and follow up in the office Discussed with Dr.: Divine (consulted) Will see patient in: office Counseled pt/family regarding: lab results, diagnosis, need for follow-up, rad results - Departure Time of Disposition: 16:29 Departure Disposition: Home Clinical Impression: UTI (urinary tract infection), Neurogenic bladder, Quadriplegia, Constipation by delayed colonic transit Condition: Stable Critical Care Time: No Referrals: MICHELLE MATOS [Primary Care Provider] - Instructions: Abdominal Pain-Adult Additional Instructions: increase use of laxatives; use stimulator; take meds; follow up with Dr Jarett Matos in office Follow-up with family doctor as directed. Call for appointment. Return if any problems. If you smoke please stop. Call or follow up with your family doctor for assistance if you need it to stop. Please wear your seatbelt when driving. Have a nice day. Thank you for allowing us to participate in your care today. :o) Dr Papa Morley Prescriptions: Cephalexin Mh 500 mg [Keflex 500 mg] 500 mg PO Q6H #40 capsule
[2016-05-18] MEDS ORDERED: Sodium Chloride 0.9% 1000 ML 1,000 ML IV SCH (14:45)
[2016-05-18] MEDS ORDERED: Sodium Chloride 0.9% 1000 ML 1,000 ML ONE (14:49)
[2016-05-18 14:57] LABS: BASOPHIL % 0.4 % (0.0-0.4); Eosinophil % 1.8 % (0.00-5.0); Granulocytes % 52.9 % (36.0-66.0); Lymphocytes % 31.8 % (24.0-44.0); Mean Cell Volume 87.8 fl (78-100); Mean Corpuscular Hemoglobin 28.3 pg (26-32); Mean Platelet Volume 9.1 fl (6-9.5); Monocytes % 13.1 % (0.0-12.0); Platelet Count 235 K/mm3 (150-450); Red Blood Count 5.02 M/mm3 (4.1-5.6); Red Cell Distribution Width 17.6 % (11.5-14.0); White Blood Count 5.6 K/mm3 (4.0-10.5)
[2016-05-18] MEDS ORDERED: Hydromorphone 1 mg/ml Ampule IV ONE (15:00)
[2016-05-18] MEDS ORDERED: Hydromorphone 1 mg/ml Ampule ONE (15:02)
[2016-05-18 15:13] LABS: Collection Type CATH
[2016-05-18 15:14] LABS: COMPLETE URINE MICROSCOPIC? YES; Ph 8.5 (5-6)
[2016-05-18 15:25] LABS: ALBUMIN 3.2 g/dL (3.4-5.0); ALKALINE PHOSPHATASE 156 U/L (46-116); ANION GAP 13.6 MEQ/L (5-15); BILIRUBIN,TOTAL 0.3 mg/dL (0.2-1.0); BLOOD UREA NITROGEN 17 mg/dL (9-20); CHLORIDE 103 mEq/L (98-107); Carbon Dioxide 30.7 mEq/L (21-32); Glucose 102 MG/DL (70-110); LIPASE 265 U/L (73-393); SGOT/AST 24 U/L (15-37); SGPT/ALT 48 U/L (12-78); SODIUM 143 mEq/L (136-145); Total Protein 6.8 gm/dL (6.4-8.2)
[2016-05-18 15:31] LABS: Bacteria PACKED /HPF (NEGATIVE); Epithelial Cells FEW /HPF (FEW); WBC 25-50 /HPF (0-5)
[2016-05-18 15:34] LABS: TROPONIN < 0.017 ng/ml (0.000-0.056)
[2016-05-18 16:16] VITALS: PULSE 70
[2016-05-18] MEDS ORDERED: ROCEPHIN 1 Gm-D5w 50 ml Bag** 50 ML IV ONE ×2 (16:25→16:29)
--- NOTE | 2016-05-18 16:37 | XRAY ---
Indication: Pain, nausea, and vomiting. Comparison: Chest radiograph March 16, [address] abdomen/pelvis January 14, 2016. Supine and left lateral decubitus abdomen nonacute and nonobstructed with moderate scattered colonic fecal debris. Previous cholecystectomy. Remaining solid organs are unremarkable. Single frontal chest again demonstrates normal heart and lungs. Osseous structures intact again with thoracic spinal Elder rods/vertical screws, left back spinal stimulator device/leads, and remote L1 compression fracture. Impression: Fecal stasis without obstruction. Stable nonacute 1 view chest.
[2016-05-18 17:42] VITALS: BP 124/64
== END 2016-05-18 17:44 | disposition home or self-care (01) ==
LOC: ED 14:25
DX: N39.0 Urinary tract infection, site not specified (principal); N31.9 Neuromuscular dysfunction of bladder, unspecified; G82.50 Quadriplegia, unspecified; K59.09 Other constipation; Z79.899 Other long term (current) drug therapy
CPT/HCPCS: 96374; 99284; 96360; 82150; 81000; 36415; 83690; 85025; 80053; 84484; 74022; P9612; J0696; J1170

== ENCOUNTER 2016-08-15 09:05 | Observation (INO) | payer MEDICARE, OTHER ==
--- NOTE | 2016-08-15 09:43 | ERPHSYRPT ---
- History of Present Illness Time Seen by Provider: 08/15/16 09:24 Historian: patient, family Exam Limitations: no limitations Patient Subjective Stated Complaint: abd pain intermittent x1 week Triage Nursing Assessment: abd pain intermittent x1 week. pain worse at night. states abd gets 'tight and full and while im up in my wheelchair in the day, my stomach feels better' diarreha type stool 2 days ago--no bm today. self cath every 4 hrs-- states he has been 'leaking at night'. abd hyperactive. Physician History: The patient is a 70-year-old paraplegic male with his complaining of severe abdominal pain that began a week ago. 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 This caused severe fractures in his back and also in his neck. He's had surgeries on his back with several rods being placed. He is paralyzed from approximately T4 down. He has to self catheter. He does have bowel movements daily but only when his helps him by digitally disimpacting him. He has had severe abdominal pain at night for the past week. He states his abdomen will swell at night but when he sits upright in a chair, the pain begins to subside. Approximately 7 months ago, on January 16, the patient was diagnosed with colon cancer and had resection of cancer. He states the pain is very similar to what it was when he had colon cancer. He has an appointment in 2 days with his surgeon for the pain, but was not able to last the next 2 days with the severe pain is 10. The pain keeps him awake almost all night. His past medical history is significant for paraplegia, hypertension, neurogenic bladder, colon cancer. Timing/Duration: week(s) (1) Activities at Onset: sleep Quality: stabbing Abdominal Pain Onset Location: generalized abdomen Pain Radiation: no radiation Severity of Pain-Max: severe Severity of Pain-Current: moderate Modifying Factors: Improves With: position Associated Symptoms: denies symptoms Previous symptoms: same symptoms as today Allergies/Adverse Reactions: No Known Drug Allergies Allergy (Verified 08/15/16 09:20) Home Medications: Atorvastatin Calcium [Lipitor] 40 mg PO DAILY 05/18/16 [History] Clopidogrel Bisulfate 75 mg [PLAVIX 75 MG Tablet] 75 mg PO DAILY 05/18/16 [History] Fluticasone/Vilanterol [Breo Ellipta 100-25 Mcg INH] 1 each IH BID 05/18/16 [ History] Isosorbide Mononitrate 60 mg [Imdur 60MG] 60 mg PO DAILY 05/18/16 [History] Metoprolol Succinate 50 mg PO DAILY 05/18/16 [History] Pregabalin [Lyrica 150Mg] 150 mg PO BID 05/18/16 [History] Ranitidine HCl [Zantac] 150 mg PO BID 05/18/16 [History] Testosterone Cypionate 200 mg IM UD 05/18/16 [History] Trazodone HCl 50 mg [Desyrel 50 mg] 50 mg PO HS 05/18/16 [History] Venlafaxine HCl [Effexor Xr] 150 mg PO DAILY 05/18/16 [History] Aspirin [Aspirin EC] 81 mg PO DAILY 06/19/16 [History] Bisacodyl 10 mg [Dulcolax 10 MG SUPP] 10 mg RC .EVERYOTHERDAY 06/19/16 [ History] Cranberry 500 mg PO DAILY 06/19/16 [History] Docusate Sodium 100 mg [Colace 100 MG] 100 mg PO .6X/DAILY 06/19/16 [ History] Losartan/Hydrochlorothiazide [Losartan-Hctz 100-12.5 mg Tab] 1 each PO DAILY 09/28 [History] Morphine Sulfate [Morphine Sulfate ER] 60 mg PO TID 06/19/16 [History] Multivitamin [Multivitamins] 1 each PO DAILY 06/19/16 [History] Naloxegol Oxalate [Movantik] 25 mg PO DAILY 06/19/16 [History] Nitroglycerin 0.4 mg SL Q5MIN PRN MR X 3 PRN 06/19/16 [History] [place]-3 Acid Ethyl Esters 2 gm PO BID 06/19/16 [History] Polyethylene Glycol 3350 17 gm [Miralax Powder 17GM PACKET] 17 gm PO .AM 09/28 [History] Sennosides/Docusate Sodium [Doc-Q-Lax Tablet] 1 each PO HS 06/19/16 [History] Hx Tetanus, Diphtheria Vaccination/Date Given: Yes Hx Influenza Vaccination/Date Given: No Hx Pneumococcal Vaccination/Date Given: (2011) - Review of Systems Constitutional: No Fever, No Chills Eyes: No Symptoms Ears, Nose, & Throat: No Symptoms Respiratory: No Cough, No Dyspnea Cardiac: No Chest Pain, No Edema, No Syncope Abdominal/Gastrointestinal: Abdominal Pain Genitourinary Symptoms: No Dysuria Musculoskeletal: Back Pain, Fall, Injury Skin: No Rash Neurological: Paralysis Psychological: No Symptoms Endocrine: No Symptoms Hematologic/Lymphatic: No Symptoms Immunological/Allergic: No Symptoms All Other Systems: Reviewed and Negative - Past Medical History Pertinent Past Medical History: Yes Neurological History: Other ENT History: No Pertinent History Cardiac History: Angina, Congestive Heart Failure, Coronary Artery Disease, High Cholesterol, Hypertension, Myocardial Infarction ([place]) Respiratory History: Bronchitis Endocrine Medical History: No Pertinent History Musculoskeletal History: Fractures GI Medical History: GI Bleed History: No Pertinent History Psycho-Social History: No Pertinent History Male Reproductive Disorders: No Pertinent History 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 Left leg operation times 3, COLON CA AND RESECTION IN NOV, - Social History Smoking Status: Never smoker How long have you smoked: 40years Exposure to second hand smoke: No Alcohol Use: None Drug Use: none Patient Lives Alone: No Significant Family History: heart disease, diabetes - Nursing Vital Signs Nursing Vital Signs: Initial Vital Signs Temperature 97.8 F Temperature Source Oral Pulse Rate 73 Respiratory Rate 16 Blood Pressure [] 100/63 Pain Intensity 3 - Physical Exam General Appearance: moderate distress Eye Exam: PERRL/EOMI, eyes nml inspection Ears, Nose, Throat Exam: normal ENT inspection, pharynx normal, moist mucous membranes Neck Exam: normal inspection, non-tender, supple, full range of motion Respiratory Exam: normal breath sounds, lungs clear, No respiratory distress Cardiovascular Exam: regular rate/rhythm, normal heart sounds Gastrointestinal/Abdomen Exam: tenderness, other (hyperactive BS) Rectal Exam: not done Back Exam: normal inspection, normal range of motion, No CVA tenderness, No vertebral tenderness Extremity Exam: normal inspection, normal range of motion, pelvis stable Neurologic Exam: alert, oriented x 3, cooperative, normal mood/affect, nml cerebellar function, sensation nml, No motor deficits Skin Exam: normal color, warm, dry SpO2 Interpretation: normal SpO2: 97 Oxygen Delivery: Room Air - CT Exams Abdomen/Pelvis CT Interpretation: Tele-radiologist Report, Other (right hydronephrosis up to 9 mm without calculus, bladder wall thickening. Moderate fecal stasis without obstruction, per Dr Constantino.) Ordered Tests: Active Orders 24 hr Category Date Time Status IV Insertion STAT Care 08/15/16 09:50 Active ABDOMEN AND PELVIS W/0 CONTRAS [CT] Stat Exams 08/15/16 09:51 Taken CBC W DIFF Stat Lab 08/15/16 09:26 Completed CMP Stat Lab 08/15/16 09:26 Completed CULTURE,URINE Stat Lab 08/15/16 10:38 Received LIPASE Stat Lab 08/15/16 09:26 Completed Lactic Acid Stat Lab 08/15/16 10:05 Completed PROTIME WITH INR Stat Lab 08/15/16 09:26 Completed UA W/ MICROSCOPIC Stat Lab 08/15/16 10:38 Completed Medication Summary Generic Name Dose Route Start Last Admin Trade Name Freq PRN Reason Stop Dose Admin Sodium Chloride 1,000 mls @ 100 mls/hr 08/15/16 10:00 08/15/16 10:12 Sodium Chloride 0.9% 1000 Ml IV 09/14/16 09:59 100 mls/hr .Q10H SHAI Administration Ceftriaxone Sodium/Dextrose 1 g in 50 mls @ 100 mls/hr 08/15/16 11:18 Rocephin 1 Gm-D5w 50 Ml Bag IV 08/15/16 11:47 STAT ONE Discontinued Medications Generic Name Dose Route Start Last Admin Trade Name Freq PRN Reason Stop Dose Admin Hydromorphone HCl 2 mg 08/15/16 09:50 08/15/16 10:12 Hydromorphone 1 Mg/Ml Ampule IV 08/15/16 09:51 2 mg STAT ONE Administration Hydromorphone HCl Confirm 08/15/16 09:55 Hydromorphone 1 Mg/Ml Ampule Administered 08/15/16 09:56 Dose 2 mg .ROUTE .[employer]-MED ONE Lab/Rad Data: Laboratory Result Diagrams 08/15/16 09:26 08/15/16 09:26 Laboratory Results 08/15/16 08/15/16 08/15/16 Range/Units 10:38 10:05 09:26 WBC (4.0-10.5) K/mm3 RBC (4.1-5.6) M/mm3 Hgb (12.5-18.0) gm/dl Hct (42-50) % MCV (78-100) fl MCH (26-32) pg MCHC (32-36) g/dl RDW (11.5-14.0) % Plt Count (150-450) K/mm3 MPV (6-9.5) fl Gran % (36.0-66.0) % Lymphocytes % (24.0-44.0) % Monocytes % (0.0-12.0) % Eosinophils % (0.00-5.0) % Basophils % (0.0-0.4) % Basophils # (0-0.4) INR 1.14 (0.8-3.0) Sodium (136-145) mEq/L Potassium (3.5-5.1) mEq/L Chloride (98-107) mEq/L Carbon Dioxide (21-32) mEq/L Anion Gap (5-15) MEQ/L BUN (9-20) mg/dL Creatinine (0.55-1.30) mg/dl Estimated GFR ML/MIN Glucose (70-110) MG/DL Lactic Acid 1.4 (0.4-2.0) Calcium (8.5-10.1) mg/dL Total Bilirubin (0.2-1.0) mg/dL AST (15-37) U/L ALT (12-78) U/L Alkaline Phosphatase (46-116) U/L Serum Total Protein (6.4-8.2) gm/dL Albumin (3.4-5.0) g/dL Lipase (73-393) U/L Ur Collection Type CCMS Urine Color YELLOW (YELLOW) Urine Appearance CLOUDY (CLEAR) Urine pH 6.0 (5-6) Ur Specific [place] 1.010 (1.005-1.025) Urine Protein NEGATIVE (Negative) Urine Glucose (UA) NEGATIVE (NEGATIVE) mg/dL Urine Ketones NEGATIVE (NEGATIVE) Urine Nitrite POSITIVE (NEGATIVE) Urine Bilirubin NEGATIVE (NEGATIVE) Urine Urobilinogen 1 (0-1) mg/dL Urine WBC (Auto) LARGE (NEGATIVE) Urine RBC (Auto) SMALL (0-5) Luis M/ul Urine Microscopic RBC 2-5 (0-2) /HPF Urine Microscopic WBC >100 (0-5) /HPF Ur Epithelial Cells FEW (FEW) /HPF Urine Bacteria MODERATE (NEGATIVE) /HPF Specimen Received [facility] 08/15/16 08/15/16 08/15/16 Range/Units 09:26 09:26 WBC 8.8 (4.0-10.5) K/mm3 RBC 5.68 H (4.1-5.6) M/mm3 Hgb 15.9 (12.5-18.0) gm/dl Hct 49.5 (42-50) % MCV 87.1 (78-100) fl MCH 27.9 (26-32) pg MCHC 32.1 (32-36) g/dl RDW 15.0 H (11.5-14.0) % Plt Count 169 (150-450) K/mm3 MPV 9.9 H (6-9.5) fl Gran % 69.5 H (36.0-66.0) % Lymphocytes % 18.3 L (24.0-44.0) % Monocytes % 10.5 (0.0-12.0) % Eosinophils % 1.6 (0.00-5.0) % Basophils % 0.1 (0.0-0.4) % Basophils # 0.01 (0-0.4) INR (0.8-3.0) Sodium 137 (136-145) mEq/L Potassium 3.7 (3.5-5.1) mEq/L Chloride 101 (98-107) mEq/L Carbon Dioxide 28.6 (21-32) mEq/L Anion Gap 11.5 (5-15) MEQ/L BUN 20 (9-20) mg/dL Creatinine 0.96 (0.55-1.30) mg/dl Estimated GFR > 60 ML/MIN Glucose 103 (70-110) MG/DL Lactic Acid (0.4-2.0) Calcium 8.6 (8.5-10.1) mg/dL Total Bilirubin 0.50 (0.2-1.0) mg/dL AST 26 (15-37) U/L ALT 51 (12-78) U/L Alkaline Phosphatase 168 H (46-116) U/L Serum Total Protein 7.5 (6.4-8.2) gm/dL Albumin 3.0 L (3.4-5.0) g/dL Lipase 249 (73-393) U/L Ur Collection Type Urine Color (YELLOW) Urine Appearance (CLEAR) Urine pH (5-6) Ur Specific [place] (1.005-1.025) Urine Protein (Negative) Urine Glucose (UA) (NEGATIVE) mg/dL Urine Ketones (NEGATIVE) Urine Nitrite (NEGATIVE) Urine Bilirubin (NEGATIVE) Urine Urobilinogen (0-1) mg/dL Urine WBC (Auto) (NEGATIVE) Urine RBC (Auto) (0-5) Luis M/ul Urine Microscopic RBC (0-2) /HPF Urine Microscopic WBC (0-5) /HPF Ur Epithelial Cells (FEW) /HPF Urine Bacteria (NEGATIVE) /HPF Specimen Received - Progress Progress: improved Discussed with : Jesse Will see patient in: hospital (observation) Counseled pt/family regarding: lab results, diagnosis, rad results - Departure Time of Disposition: 11:26 Departure Disposition: Observation Clinical Impression: Abdominal pain, UTI (urinary tract infection), Hydronephrosis, Constipation Condition: Stable Critical Care Time: No Additional Instructions: Your having intermittent severe abdominal pain. You were given Dilaudid 2 mg IV in the ER. The abdominal pelvis CT scan showed right hydronephrosis. This is likely due to the bladder infection that you have. You were given Rocephin 1 g IV in the ER for the infection. You're being admitted per Dr. Molina. Dr. Caballero will be consulting.
[2016-08-15] MEDS ORDERED: Hydromorphone 1 mg/ml Ampule IV ONE (09:50)
[2016-08-15] MEDS ORDERED: Hydromorphone 1 mg/ml Ampule ONE (09:55)
[2016-08-15] MEDS ORDERED: Sodium Chloride 0.9% 1000 ML 1,000 ML IV SCH (10:00)
[2016-08-15 10:04] LABS: INR 1.14 (0.8-3.0); PROTIME 12.7 SECONDS (8.83-12.87)
[2016-08-15 10:07] LABS: BASOPHIL % 0.1 % (0.0-0.4); Eosinophil % 1.6 % (0.00-5.0); Granulocytes % 69.5 % (36.0-66.0); Lymphocytes % 18.3 % (24.0-44.0); Mean Cell Volume 87.1 fl (78-100); Mean Platelet Volume 9.9 fl (6-9.5); Monocytes % 10.5 % (0.0-12.0); Platelet Count 169 K/mm3 (150-450); Red Blood Count 5.68 M/mm3 (4.1-5.6); White Blood Count 8.8 K/mm3 (4.0-10.5)
[2016-08-15 10:10] LABS: Mean Corpuscular Hemoglobin 27.9 pg (26-32)
[2016-08-15 10:12] LABS: ALKALINE PHOSPHATASE 168 U/L (46-116); ANION GAP 11.5 MEQ/L (5-15); BLOOD UREA NITROGEN 20 mg/dL (9-20); CHLORIDE 101 mEq/L (98-107); Carbon Dioxide 28.6 mEq/L (21-32); Glucose 103 MG/DL (70-110); LIPASE 249 U/L (73-393); Potassium 3.7 mEq/L (3.5-5.1); SGOT/AST 26 U/L (15-37); SGPT/ALT 51 U/L (12-78); SODIUM 137 mEq/L (136-145); Total Protein 7.5 gm/dL (6.4-8.2)
[2016-08-15 10:52] LABS: Collection Type CCMS
[2016-08-15 10:53] LABS: ADD URINE CULTURE? YES (NO); COMPLETE URINE MICROSCOPIC? YES
[2016-08-15 11:00] LABS: Bacteria MODERATE /HPF (NEGATIVE); Epithelial Cells FEW /HPF (FEW); WBC >100 /HPF (0-5)
[2016-08-15] MEDS ORDERED: ROCEPHIN 1 Gm-D5w 50 ml Bag** 1 G/50 ML IVPB IV ONE ×2 (11:18→11:23)
[2016-08-15] MEDS: DILAUDID 1 MG/1ML PCA IV PRN ×2 (13:44→18:29)
--- NOTE | 2016-08-15 15:56 | XRAY ---
Indication: Abdominal pain. Multiple contiguous axial images obtained through the abdomen and pelvis without contrast as ordered. Comparison: January 14, 2016. Again spinal hardware produces beam artifact degrading images of the lower chest/upper abdomen. Lung bases are clear. Heart is not enlarged. Noncontrasted stomach and bowel loops appear nonobstructed. There remains moderate colonic fecal debris throughout. Interval sigmoid resection with intact anastomosis. No free fluid/air. Right kidney is now mildly hydronephrotic with the distal ureter prominent up to 9 mm in diameter without calculus. Stable periaortic nodes, urinary bladder circumferential wall thickening, small fatty right inguinal hernia, cholecystectomy, and appendectomy. Remaining liver, pancreas, spleen, adrenal glands, kidneys, and ureters unremarkable for noncontrast exam. Bone windows reveal stable multilevel spinal degenerative changes and remote-appearing T11/L1 endplate fractures. Stable left lower back spinal stimulator device and leads. Impression: 1. Again fecal stasis without obstruction. 2. Status post sigmoid resection without complications. 3. Right kidney mildly hydronephrotic with distal hydroureter but no calculus. Findings can be seen with recent passage of calculus. Retrograde pyelogram may yield further information if there remains further clinical concern. 4. Stable urinary bladder wall thickening, periaortic nodes, fatty right inguinal hernia, thoracolumbar fusion surgery, and remote T11/L1 endplate fractures. CTDI 20.31
[2016-08-15] MEDS ORDERED: TYLENOL 325 MG PO PRN (16:48)
[2016-08-15] MEDS ORDERED: Zofran 4 MG/2 ML VIAL IV PRN (16:49)
--- NOTE | 2016-08-15 16:54 | CONS ---
CONSULT DATE: 08/15/16 HISTORY OF PRESENT ILLNESS: 70 y/o paraplegic gentleman had prior history of colon resection last January. Had some abdominal pain or cramping. 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 Had some tightness and fullness when he is up in his wheelchair. No fever currently. PAST SURGICAL HISTORY: Had appendectomy, cholecystectomy. Has had multiple back surgeries in the past. He had had colon resection for cancer in the past. He has had leg operations in the past. PAST MEDICAL HISTORY: He has had history of congestive heart failure, heart disease, hypercholesterolemia, hypertension, and myocardial infarction. Had a history of the colon resection as mentioned above. HOME MEDICATIONS: Prior to admission include Lipitor, Plavix, Breo Ellipta, isosorbide mononitrate, metoprolol, Lyrica, Zantac, testosterone, trazodone, Effexor, aspirin, bisacodyl, cranberry, docusate sodium, losartan hydrochlorothiazide, morphine ER, multivitamins, Movantik, nitroglycerin PRN, [place] 3, polyethylene glycol, MiraLAX powder, Dulcolax tabs as well. FAMILY HISTORY: Negative with regards to this problem. He does have some heart disease and diabetes in the family. SOCIAL HISTORY: No smoking or alcohol abuse. REVIEW OF SYSTEMS: 12 systems reviewed as noted above. No chest pain or palpitations. Other systems negative or noncontributory other than above and per admission assessment. CT showed some right hydronephrosis without any obvious calculus. Had some bladder wall thickening and fecal stasis, no obstruction, no evidence of any free air or collections. WBC 8.8, Hgb 15.9, platelets 169,000. Lactic acid normal at 1.4. He did have some nitrites in the urine, several WBC's, and bacteria. PHYSICAL EXAMINATION: Temperature was 97.8 earlier, pulse 73, BP 100/63. GENERAL: No acute distress. HEENT: Sclerae nonicteric. NECK: No JVD. CHEST: Equal excursion. Nonlabored breathing. CVS: Regular rate and rhythm. ABDOMEN: Soft. No peritoneal signs. EXTREMITIES: Paraplegic. NEURO: Paraplegic. IMPRESSION: 1. SOME ABDOMINAL PAIN, UNCLEAR ETIOLOGY. No obvious general surgical issue at this time. He does have some stool in the colon which is not uncommon given his paraplegia. He does apparently have what sounds like a urinary tract infection. Whether all these symptoms are just related to the urinary tract infection, he is nontoxic, normal WBC, afebrile. No emergent surgical intervention is necessary, so continue medical management and treatment of his urinary tract infection. Available as needed. Patient is due for follow-up colonoscopy probably in December or January given his past history of colon resection, but has no bloody stools and normal Hgb now, no need for any urgent endoscopy at this point. Continue medical management. Treat his urinary tract infection and/or gastroenteritis at this time. Patient and family agree to the plan. Thank you for the consult.
--- NOTE | 2016-08-15 17:11 | HP ---
HISTORY OF PRESENT ILLNESS: This is a patient of Dr. Ricky Escamilla who presented to the Emergency Department complaining of abdominal pain for 1 week. He reports it is worse when he lies down to go to bed at night. They were concerned that it may be a recurrence of his colon cancer as his pain felt similar when he had stage 2 colon cancer that was diagnosed and then resected. His is at the bedside. They report he didn't have to have any chemotherapy for this. Dr. Caballero has already seen the patient since he has been here and reviewed his CT scan and the family is quite relieved that he does not think there is any recurrence of his colon cancer. He reports his abdominal pain will be across his entire abdomen, but a little bit worse in the left upper quadrant. They deny pain right after eating. He has chronic constipation which he takes multiple medications for still without much relief from this. His reports he carries a urinary tract infection all the time, but doesn't always have antibiotics for this due to concern about resistance and side effects of the antibiotics. The patient states he doesn't always feel dysuria as he has it, but has phantom type pain which he takes the pain medication for. REVIEW OF SYSTEMS: He denies any fevers. No vomiting. He has had some nausea. No cough. No rhinorrhea. He has abdominal pain and constipation. No diarrhea. No lower extremity edema. His reports he has decubitus ulcers that they took pictures of and placed on his chart. PAST MEDICAL HISTORY: He is a paraplegic from a fall in 2011. History of coronary artery disease status post coronary artery bypass graft. Hyperlipidemia, hypertension. PAST SURGICAL HISTORY: Coronary artery bypass graft that was a quadruple bypass per the patient, appendectomy, cholecystectomy, multiple leg surgeries, resection from the colon cancer in January 2016. SOCIAL HISTORY: She is and lives with his and there are 2 great-grandchildren that are living with them as well. He used to smoke, but doesn't anymore. Denies any alcohol use. FAMILY HISTORY: His mother is and 30 years ago in her sleep. His father from alcohol use. CURRENT MEDICATIONS: Aspirin 81 mg PO daily, atorvastatin 40 mg PO q HS, Dulcolax 10 mg qod rectally, Plavix 75 mg daily, cranberry 500 mg q HS, docusate 100 mg 6 times a day, Breo 1 puff bid, isosorbide mononitrate 60 mg PO q HS, losartan/hydrochlorothiazide 100/12.5 mg PO daily, metoprolol succinate 25 mg PO bid, morphine sulfate extended release 60 mg PO bid, multivitamin 1 tab PO daily, Movantik 25 mg PO daily, nitroglycerin 0.4 mg sublingual q 5 minutes PRN, [place] 3 acid 2 tablets PO bid, MiraLAX 17 Gm PO q AM, Lyrica 150 mg PO bid, ranitidine 150 mg PO bid, Dulcolax 2 tablets PO q HS, testosterone 200 mg IM q 2 weeks, trazodone 50 mg PO q HS, venlafaxine 150 mg PO daily. ALLERGIES: NKDA. PHYSICAL EXAMINATION: VITAL SIGNS: Temperature current 97.5, temperature maximum 97.8, heart rate 68-73, respiratory rate 16-20, O2 saturation 95-97% on room air, BP 100-132/55-85, weight 85 Kg. GENERAL: The patient is a pleasant man lying in bed in no acute distress. His is at the bedside. CVS: He has a regular rate and rhythm. No murmurs, gallops, or rubs are appreciated. CHEST: Clear to auscultation when auscultated anteriorly. ABDOMEN: Soft with normal bowel sounds. The patient reports tenderness especially on the left side, but diffusely throughout. There is no guarding, no rigidity. EXTREMITIES: He has lost his muscle mass in his legs. No clubbing or cyanosis. SKIN: Please see the pictures on his chart of his decubitus ulcers. Otherwise, skin is warm, dry, and intact. LABORATORY DATA: CBC is within normal limits. CMP revealed Alk. phos. of 168, albumin 3.0. UA with greater than 100 WBC, moderate bacteria. Urine culture is in lab. CT scan was concerning for mild right hydronephrosis and distal hydroureter, but no calculus was seen. There is also stable urinary bladder wall thickening. Please see the radiologist's report for the full dictation. ASSESSMENT AND PLAN: 1. ABDOMINAL PAIN. He reports this is always worse in the evening. 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 They do seemed quite relieved that there are no signs of recurrence of colon cancer. 2. URINARY TRACT INFECTION. He has been started on ceftriaxone in the Emergency Department. Will follow his culture. 3. CHRONIC CONSTIPATION. Will continue with his home medications. He was also given an enema this evening ordered by the Emergency Room doctor. 4. CHRONIC PAIN. Normally, he is on morphine ER 60 mg PO bid. He reports this is a decrease recently in his dose that was 60 mg tid. 5. HISTORY OF CORONARY ARTERY DISEASE. Will continue with his home medications. 6. HYPERTENSION. I am holding the hydrochlorothiazide and losartan as his BP is at the low end of normal right now, but we may need to restart that tomorrow. 7. CODE STATUS. The patient does not want to have any heroic measures taken and this was confirmed with the patient while his was in the room, so an SCO order was signed that the patient had already signed.
[2016-08-15] MEDS ORDERED: Nitrostat 0.4 MG Tablet SL PRN (19:27)
[2016-08-15] MEDS ORDERED: Ecotrin 325 MG ONE (20:24)
[2016-08-15] MEDS: ENOXAPARIN SODIUM SQ SCH (20:47)
[2016-08-15] MEDS: ECOTRIN 81 MG PO SCH (20:47)
[2016-08-15] MEDS: PLAVIX 75 MG Tablet PO SCH (20:47)
[2016-08-15] MEDS: Advair Hfa 115/21 Common canister IH SCH (20:48)
[2016-08-15] MEDS: LYRICA 150MG PO SCH (20:48)
[2016-08-15] MEDS: Toprol-Xl 25MG Tablets PO SCH (20:48)
[2016-08-15] MEDS: Imdur 60MG PO SCH (20:49)
[2016-08-15] MEDS: ZOCOR 20MG PO SCH (20:49)
[2016-08-15] MEDS: Pepcid 20 MG PO SCH (20:49)
[2016-08-15] MEDS: DESYREL 50 MG PO SCH (20:49)
[2016-08-15] MEDS: Senokot-S Tablet PO SCH (20:49)
[2016-08-16 05:38] LABS: BASOPHIL % 0.4 % (0.0-0.4); Eosinophil % 3.3 % (0.00-5.0); Granulocytes % 53.2 % (36.0-66.0); Lymphocytes % 29.6 % (24.0-44.0); Mean Cell Volume 87.1 fl (78-100); Mean Corpuscular Hemoglobin 28.1 pg (26-32); Mean Platelet Volume 9.9 fl (6-9.5); Monocytes % 13.5 % (0.0-12.0); Platelet Count 137 K/mm3 (150-450); Red Cell Distribution Width 14.8 % (11.5-14.0); White Blood Count 4.8 K/mm3 (4.0-10.5)
[2016-08-16 06:10] LABS: ALBUMIN 2.6 g/dL (3.4-5.0); ALKALINE PHOSPHATASE 166 U/L (46-116); ANION GAP 11.2 MEQ/L (5-15); BLOOD UREA NITROGEN 14 mg/dL (9-20); CHLORIDE 107 mEq/L (98-107); Carbon Dioxide 25.6 mEq/L (21-32); Glucose 140 MG/DL (70-110); Potassium 3.6 mEq/L (3.5-5.1); SGOT/AST 21 U/L (15-37); SGPT/ALT 23 U/L (12-78); SODIUM 140 mEq/L (136-145)
[2016-08-16] MEDS: DILAUDID 1 MG/1ML PCA IV PRN ×2 (06:18→18:05)
[2016-08-16] MEDS: Advair Hfa 115/21 Common canister IH SCH ×2 (06:51→19:56)
[2016-08-16] MEDS ORDERED: Dulcolax 10 MG SUPP RC SCH (08:45)
[2016-08-16] MEDS ORDERED: MEDICATION INTERVENTION MC PRN ×2 (08:48→08:56)
--- NOTE | 2016-08-16 09:54 | PCM.NOTE ---
Date and Time: 08/16/1649 Subjective Assessment: He reports he did not have as much abdominal pain last night and he was able to get some rest. He did have 4 stools after the enema. He reports his urine is still cloudy. - Review of Systems Constitutional: No Symptoms Eyes: No Symptoms Respiratory: No Symptoms Cardiac: No Symptoms Abdominal/Gastrointestinal: Abdominal Pain, Other (left upper quadrant) Genitourinary Symptoms: No Symptoms Musculoskeletal: No Symptoms Skin: No Symptoms Neurological: No Symptoms Objective Exam General Appearance: no apparent distress, alert, obese, other ( at bedside) Neurologic Exam: alert, cooperative, normal mood/affect Skin Exam: normal color, warm, dry, No rash Respiratory Exam: normal breath sounds, lungs clear, No crackles/rales, No rhonchi, No wheezing Cardiovascular Exam: regular rate/rhythm, normal heart sounds, No murmur, No friction rub, No gallop Gastrointestinal/Abdomen Exam: soft, normal bowel sounds, No tenderness, No distention, No mass Extremity Exam: other (no c/c/e) OBJECTIVE DATA Vital Signs: Vital Signs - 24 hr Temp Pulse Resp BP Pulse Ox 08/16/16 07:38 98.5 F 65 20 123/58 96 08/16/16 06:51 70 16 94 L 08/16/16 06:18 94 L 08/16/16 04:10 97.9 F 80 20 117/60 95 08/16/16 00:09 98.1 F 93 H 20 125/62 92 L 08/15/16 22:29 93 L 08/15/16 20:48 83 16 93 L 08/15/16 20:28 98.2 F 84 20 149/77 91 L 08/15/16 16:00 98.1 F 70 20 126/62 95 08/15/16 13:44 95 08/15/16 12:27 97.5 F 68 20 117/55 95 08/15/16 12:00 97.5 F 68 20 117/55 95 08/15/16 11:46 72 18 109/60 95 08/15/16 11:38 97 08/15/16 10:45 73 16 100/63 95 Pain Assessment - Last Documented Pain Intensity 5 Pain Scale Used 0-10 Pain Scale Intake and Output: Intake & Output 08/14/16 08/15/16 08/16/16 08/17/16 06:59 06:59 06:59 06:59 Intake Total 1560 420 Output Total 1600 Balance -40 420 Weight 85.474 kg Lab Results: Lab Results-Last 24 Hours 08/16/16 08/16/16 Range/Units 05:05 05:05 WBC 4.8 (4.0-10.5) K/mm3 RBC 5.20 (4.1-5.6) M/mm3 Hgb 14.6 (12.5-18.0) gm/dl Hct 45.3 (42-50) % MCV 87.1 (78-100) fl MCH 28.1 (26-32) pg MCHC 32.2 (32-36) g/dl RDW 14.8 H (11.5-14.0) % Plt Count 137 L (150-450) K/mm3 MPV 9.9 H (6-9.5) fl Gran % 53.2 (36.0-66.0) % Lymphocytes % 29.6 (24.0-44.0) % Monocytes % 13.5 H (0.0-12.0) % Eosinophils % 3.3 (0.00-5.0) % Basophils % 0.4 (0.0-0.4) % Basophils # 0.02 (0-0.4) Sodium 140 (136-145) mEq/L Potassium 3.6 (3.5-5.1) mEq/L Chloride 107 (98-107) mEq/L Carbon Dioxide 25.6 (21-32) mEq/L Anion Gap 11.2 (5-15) MEQ/L BUN 14 (9-20) mg/dL Creatinine 0.70 (0.55-1.30) mg/dl Estimated GFR > 60 ML/MIN Glucose 140 H (70-110) MG/DL Calcium 8.7 (8.5-10.1) mg/dL Total Bilirubin 0.30 (0.2-1.0) mg/dL AST 21 (15-37) U/L ALT 23 (12-78) U/L Alkaline Phosphatase 166 H (46-116) U/L Serum Total Protein 6.0 L (6.4-8.2) gm/dL Albumin 2.6 L (3.4-5.0) g/dL Multi-Disciplinary Progress Notes: Multi-Disciplinary Progress Notes 08/15/16 22:36 Case Management Note by Klaudia Campbell DISCHARGE PLAN REVIEWED. NORMALLY LIVES AT HOME WITH HIS SPOUSE, KLAUDIA GLASER AND DESIGNATES HER TO BE HIS LAY CAREGIVER. [phone] PT QUADRAPLEGIC. PT HAS A W/C AND A BEDSIDE COMMODE. DATA DESIGNER, VIC ATTEMPTED TO CONFIRM WHETHER PT HAD HHC, PATIENT AND SPOUSE SLEEPING IN ROOM WILL CHECK TOMORROW. NOT CHARTED IN INITIAL INTAKE. WILL CONTINUE TO MONITOR FOR ALL D/C NEEDS. . Initialized on 08/15/16 22:36 - END OF NOTE Assessment/Plan (1) Abdominal pain Current Visit: Yes Status: Acute Assessment & Plan: Improved. Continue dilaudid HEART NURSE as needed. Code(s): R10.9 - UNSPECIFIED ABDOMINAL PAIN (2) UTI (urinary tract infection) Current Visit: Yes Status: Acute Assessment & Plan: Urine culture growing gram neg organism. Continue ceftriaxone. Code(s): N39.0 - URINARY TRACT INFECTION, SITE NOT SPECIFIED (3) Chronic constipation Current Visit: Yes Status: Acute Assessment & Plan: Continue home medication. Improved after enema. Code(s): K59.09 - OTHER CONSTIPATION (4) Chronic pain syndrome Current Visit: Yes Status: Acute Assessment & Plan: Currently on IV pain medication. Holding morphine ER. Code(s): G89.4 - CHRONIC PAIN SYNDROME (5) History of coronary artery disease Current Visit: Yes Status: Acute Assessment & Plan: Continue home medication. Code(s): Z86.79 - PERSONAL HISTORY OF OTHER DISEASES OF THE CIRCULATORY SYSTEM (6) Essential hypertension Current Visit: Yes Status: Acute Assessment & Plan: Losartan/HCTZ currently held. He is on metoprolol. Code(s): I10 - ESSENTIAL (PRIMARY) HYPERTENSION
[2016-08-16] MEDS ORDERED: NON-FORMULARY ITEM (Venlafaxine Hcl [Effexor Xr] 150 MG) PO SCH (10:00)
[2016-08-16] MEDS ORDERED: OMEGA ACID ETHYL ESTERS PO SCH (10:00)
[2016-08-16] MEDS ORDERED: NON-FORMULARY ITEM (Naloxegol Oxalate [Movantik] 25 MG) PO SCH (10:00)
[2016-08-16] MEDS ORDERED: NON-FORMULARY ITEM (Multivitamin [Multivitamins] 1 EACH) PO SCH (10:00)
[2016-08-16] MEDS: Effexor XR 75 MG PO SCH (10:12)
[2016-08-16] MEDS: FISH OIL 1,000 MG CAPSULE PO SCH ×2 (10:12→21:11)
[2016-08-16] MEDS: Toprol-Xl 25MG Tablets PO SCH ×2 (10:12→21:13)
[2016-08-16] MEDS: Colace 100 MG PO SCH ×4 (10:12→21:11)
[2016-08-16] MEDS: PLAVIX 75 MG Tablet PO SCH (10:13)
[2016-08-16] MEDS: Miralax Powder 17GM PACKET PO SCH (10:13)
[2016-08-16] MEDS: Pepcid 20 MG PO SCH ×2 (10:13→21:13)
[2016-08-16] MEDS: ROCEPHIN 1 Gm-D5w 50 ml Bag** 1 G/50 ML IVPB IV SCH (10:13)
[2016-08-16] MEDS: THERAGRAN MULTIVITAMIN PO SCH (10:13)
[2016-08-16] MEDS: ECOTRIN 81 MG PO SCH (10:13)
[2016-08-16] MEDS: ENOXAPARIN SODIUM SQ SCH (10:13)
[2016-08-16] MEDS: LYRICA 150MG PO SCH ×2 (10:13→21:12)
[2016-08-16] MEDS ORDERED: Sodium Chloride 0.9% 1000 ML 1,000 ML IV SCH (15:15)
[2016-08-16] MEDS: Senokot-S Tablet PO SCH (21:11)
[2016-08-16] MEDS: Imdur 60MG PO SCH (21:12)
[2016-08-16] MEDS: DESYREL 50 MG PO SCH (21:13)
[2016-08-16] MEDS: ZOCOR 20MG PO SCH (21:13)
[2016-08-16] MEDS ORDERED: CRANBERRY 500 MG PO SCH (22:00)
[2016-08-17] MEDS: Advair Hfa 115/21 Common canister IH SCH (07:06)
--- NOTE | 2016-08-17 07:49 | PCM.DCORD ---
- Discharge Discharge Date: 08/17/16 Disposition: Home, Self-Care Condition: Stable Prescriptions: New Cephalexin Mh 500 mg [Keflex 500 mg] 500 mg PO TID #21 capsule Continue Venlafaxine HCl [Effexor Xr] 150 mg PO DAILY Testosterone Cypionate 200 mg IM UD Fluticasone/Vilanterol [Breo Ellipta 100-25 Mcg INH] 1 each IH BID Metoprolol Succinate 25 mg PO BID Isosorbide Mononitrate 60 mg [Imdur 60MG] 60 mg PO HS Clopidogrel Bisulfate 75 mg [PLAVIX 75 MG Tablet] 75 mg PO DAILY Trazodone HCl 50 mg [Desyrel 50 mg] 50 mg PO HS Pregabalin [Lyrica 150Mg] 150 mg PO BID Ranitidine HCl [Zantac] 150 mg PO BID Atorvastatin Calcium [Lipitor] 40 mg PO HS Sennosides/Docusate Sodium [Doc-Q-Lax Tablet] 2 tab PO HS Naloxegol Oxalate [Movantik] 25 mg PO DAILY Nitroglycerin 0.4 mg SL Q5MIN PRN MR X 3 PRN PRN Reason: Chest Pain Bisacodyl 10 mg [Dulcolax 10 MG SUPP] 10 mg RC .EVERYOTHERDAY Docusate Sodium 100 mg [Colace 100 MG] 100 mg PO .6X/DAILY Cranberry 500 mg PO HS Morphine Sulfate [Morphine Sulfate ER] 60 mg PO BID Losartan/Hydrochlorothiazide [Losartan-Hctz 100-12.5 mg Tab] 1 each PO DAILY Multivitamin [Multivitamins] 1 each PO DAILY Aspirin [Aspirin EC] 81 mg PO DAILY Polyethylene Glycol 3350 17 gm [Miralax Powder 17GM PACKET] 17 gm PO QAM [place]-3 Acid Ethyl Esters 2 tab PO BID Additional Instructions: Your having intermittent severe abdominal pain. You were given Dilaudid 2 mg IV in the ER. The abdominal pelvis CT scan showed right hydronephrosis. This is likely due to the bladder infection that you have. You were given Rocephin 1 g IV in the ER for the infection. You're being admitted per Dr. Molina. Dr. Caballero will be consulting. Follow up with: MICHELLE MATOS [Primary Care Provider] - Forms: Patient Portal Information
[2016-08-17 07:57] VITALS: BP 177/85; PULSE 89; O2SAT 93
[2016-08-17] MEDS: Miralax Powder 17GM PACKET PO SCH (09:57)
[2016-08-17] MEDS: ROCEPHIN 1 Gm-D5w 50 ml Bag** 1 G/50 ML IVPB IV SCH (09:57)
[2016-08-17] MEDS: LYRICA 150MG PO SCH (09:57)
[2016-08-17] MEDS: Pepcid 20 MG PO SCH (09:57)
[2016-08-17] MEDS: Toprol-Xl 25MG Tablets PO SCH (09:57)
[2016-08-17] MEDS: ECOTRIN 81 MG PO SCH (09:57)
[2016-08-17] MEDS: Effexor XR 75 MG PO SCH (09:57)
[2016-08-17] MEDS: Colace 100 MG PO SCH (09:57)
[2016-08-17] MEDS: THERAGRAN MULTIVITAMIN PO SCH (09:57)
[2016-08-17] MEDS: FISH OIL 1,000 MG CAPSULE PO SCH (09:57)
[2016-08-17] MEDS: PLAVIX 75 MG Tablet PO SCH (09:57)
[2016-08-17] MEDS: ENOXAPARIN SODIUM SQ SCH (09:58)
--- NOTE | 2016-08-17 18:23 | PCM.DS ---
Discharge Summary Date of Admission: 08/15/16 11:49 Date of Discharge: 08/17/16 Admitting Physician: YAYA MORROW Primary Care Provider: MICHELLE MATOS Allergies Allergies No Known Drug Allergies Allergy (Verified 08/15/16 09:20) Hospital Summary - Hospital Course Hospital Course: he presented with worsening abdominal pains bilaterally that he has chronically but this was different and associated with spasms of shai abdominal muscles as well> He was very concerned as he was having similar pains when he found his colon cancer in the past. He went to ED. CT abd/pelvis did not show an etiology and Dr. Caballero evaluated the patient and did not find any acute abdominal cause to the pain. He does exercise in the gym and thinks he may have pulled something in his chest before this started. He does have intermittent self cathing and did have E. coli >100k growing in the urine for which he was treated with Rocephin that it was sensitive to. He was treated with a dilaudid glazier helper while in the hospital and his home pain medication was stopped. He has been following with pain mgmt and has been decreasing his dose on his chronic narcotics significantly and is down to 120 mg of morphine per day currently from very high doses. He did however have a therapeutic disagreement with his pain doctor and will be running out of his home supply in 2 days of the 60 mg morphine and next appointment with his new doctor is in 3 weeks. He does not misuse or abuse the medication and his drug screen results have been consistent he has been on this chronically since the accident for the chronic phantom pains, back pain and abdominal pains. We discussed that we will give temporary bridging supply at a reduced dose to 90 mg of morphine per day down from the 120mg until seeing his new physician Dr. Kolb. - Vitals & Intake/Output Vital Signs: Vital Signs Temperature 98.4 F 08/17/16 07:55 Pulse Rate 89 08/17/16 07:55 Respiratory Rate 20 08/17/16 07:55 Blood Pressure 177/85 08/17/16 07:55 O2 Sat by Pulse Oximetry 93 L 08/17/16 07:55 Intake & Output: Intake & Output 08/15/16 08/16/16 08/17/16 08/18/16 11:59 11:59 11:59 11:59 Intake Total 6968 2353 Output Total 1600 4675 Balance 380 -4870 Weight 85.474 kg - Lab Result Diagrams: 08/16/16 05:05 08/16/16 05:05 Lab Results-Last 24 Hrs: Lab Results-Last 24 Hours 08/16/16 Range/Units 05:05 Vitamin D 25-Hydroxy 35 (30-80) ng/mL - Procedures and Test Procedures and Tests throughout Hospitalization: Therapy Orders & Screens 08/15/16 12:57 OT Screen per Nursing Assess Comment: Protocol Order Physician Instructions: Greater than 3 points order OT Admission Screening Reason For Exam: Triggered on Admission Diagnosis: Abdominal pain, UTI Open Wound/Cellutlitis/Pressure Ulcers: Yes Acute Fx/ORIF/Change in wt bearing status: No Severe MUSCULOSKELETAL pain: No ADL Dysfunction: No Acute CVA w/Hemiparesis/Hemiplegia: No Decreased Functional Mobility/Strength: No Sprain/Strain: No Acute Post-op Mobility Dysfunction: No Total Points: 5 PT Screen per Nursing Assess Comment: Protocol Order Physician Instructions: Greater than 3 points order PT Admission Screenin Reason For Exam: Triggered on Admission Diagnosis: Abdominal pain, UTI Open Wound/Cellutlitis/Pressure Ulcers: Yes Acute Fx/ORIF/Change in wt bearing status: No Severe MUSCULOSKELETAL pain: No ADL Dysfunction: No Acute CVA w/Hemiparesis/Hemiplegia: No Decreased Functional Mobility/Strength: No Sprain/Strain: No Acute Post-op Mobility Dysfunction: No Total Points: 5 08/15/16 19:00 Respiratory MDI BID Comment: ADVAIR 115/21 2 PUFFS BID Diagnosis: Abdominal pain, UTI 08/15/16 20:46 Respiratory Therapy Consult ROUTINE Comment: Reason For Exam: Diagnosis: Abdominal pain, UTI Discharge Exam General Appearance: no apparent distress, alert Neurologic Exam: alert, oriented x 3, cooperative, normal mood/affect, motor deficits (paraplegia with mild involvment of upper extremities), sensory deficit (below t10) Skin Exam: normal color, warm, dry Eye Exam: PERRL, EOMI, eyes nml inspection Ears, Nose, Throat Exam: normal ENT inspection, pharynx normal, moist mucous membranes Neck Exam: normal inspection, non-tender, supple, full range of motion Respiratory Exam: normal breath sounds, lungs clear, No respiratory distress Cardiovascular Exam: regular rate/rhythm, normal heart sounds Gastrointestinal/Abdomen Exam: soft, other (did have episode of abdominal wall spasms while examining unprovoked.), No tenderness, No mass Extremity Exam: normal inspection, No calf tenderness Back Exam: No CVA tenderness, No vertebral tenderness Male Genitalia Exam: deferred Rectal Exam: deferred Final Diagnosis/Problem List - Final Discharge Diagnosis/Problem (1) Abdominal pain Status: Acute Assessment & Plan: appears abdominal wall origin likely muscle strain with spasms complicated by UTI finish coarse of antibiotic for uti wean pain mgmt as discussed script will be written at the clinic so it is in our outpatient documentation properly. INspect was reviewed and consistent with as discussed and the pain mgmt note was reviewed when he was apparently taking an extra dose of old medication as his weaning was not going well. He reports now he has only a 3 days supply. this is a reduction from when he was on 300 mg of morphine daily + 100 mcg fentanyl patch within the last year. Will cotninue to work on dose reduction to safe levels and give enough for 30 mg moprhine ER TID pending his next appointment with Dr. Kolb to establish for pain mgmt appointment. We discussed with his high narcotic threashold he will need to follow with a pain management clinic for continued management. (2) Chronic pain syndrome Status: Acute (3) Constipation Status: Acute (4) Essential hypertension Status: Acute (5) History of coronary artery disease Status: Acute (6) UTI (urinary tract infection) Status: Acute (7) Coronary artery disease Status: Chronic (8) Hypertension Status: Chronic (9) Neurogenic bladder Status: Chronic (10) Neurogenic bowel Status: Chronic (11) Paraplegia Status: Chronic - Discharge Disposition: Home, Self-Care Condition: Stable Prescriptions: New Cephalexin Mh 500 mg [Keflex 500 mg] 500 mg PO TID #21 capsule Continue Venlafaxine HCl [Effexor Xr] 150 mg PO DAILY Testosterone Cypionate 200 mg IM UD Fluticasone/Vilanterol [Breo Ellipta 100-25 Mcg INH] 1 each IH BID Metoprolol Succinate 25 mg PO BID Isosorbide Mononitrate 60 mg [Imdur 60MG] 60 mg PO HS Clopidogrel Bisulfate 75 mg [PLAVIX 75 MG Tablet] 75 mg PO DAILY Trazodone HCl 50 mg [Desyrel 50 mg] 50 mg PO HS Pregabalin [Lyrica 150Mg] 150 mg PO BID Ranitidine HCl [Zantac] 150 mg PO BID Atorvastatin Calcium [Lipitor] 40 mg PO HS Sennosides/Docusate Sodium [Doc-Q-Lax Tablet] 2 tab PO HS Naloxegol Oxalate [Movantik] 25 mg PO DAILY Nitroglycerin 0.4 mg SL Q5MIN PRN MR X 3 PRN PRN Reason: Chest Pain Bisacodyl 10 mg [Dulcolax 10 MG SUPP] 10 mg RC .EVERYOTHERDAY Docusate Sodium 100 mg [Colace 100 MG] 100 mg PO .6X/DAILY Cranberry 500 mg PO HS Morphine Sulfate [Morphine Sulfate ER] 60 mg PO BID Losartan/Hydrochlorothiazide [Losartan-Hctz 100-12.5 mg Tab] 1 each PO DAILY Multivitamin [Multivitamins] 1 each PO DAILY Aspirin [Aspirin EC] 81 mg PO DAILY Polyethylene Glycol 3350 17 gm [Miralax Powder 17GM PACKET] 17 gm PO QAM [place]-3 Acid Ethyl Esters 2 tab PO BID Instructions: Urinary Tract Infection (UTI), Abdominal Pain-Adult Additional Instructions: A HOME HEALTHCARE WILL CALL YOU TO ARRANGE YOUR FIRST VISIT. YOU MAY REACH THEM AT [phone]. Follow up with: MICHELLE MATOS [Primary Care Provider] - 08/24/16 2:45 pm Forms: Patient Portal Information
[2016-08-28] MEDS ORDERED: DEPO-TESTOSTERONE IM SCH (08:45)
== END 2016-08-17 12:00 | disposition home or self-care (01) ==
LOC: ED 09:05 → MED SURG 11:49
PROVIDERS: ADMIT Internal Medicine; ATTEND Family Medicine
DX: R10.9 Unspecified abdominal pain (principal); N39.0 Urinary tract infection, site not specified; G89.4 Chronic pain syndrome; F45.42 Pain disorder with related psychological factors; K59.00 Constipation, unspecified; I10 Essential (primary) hypertension; I25.10 Atherosclerotic heart disease of native coronary artery without angina pectoris; N31.9 Neuromuscular dysfunction of bladder, unspecified; K59.2 Neurogenic bowel, not elsewhere classified; G82.20 Paraplegia, unspecified; N13.30 Unspecified hydronephrosis; E78.5 Hyperlipidemia, unspecified; I50.9 Heart failure, unspecified; Z85.038 Personal history of other malignant neoplasm of large intestine; Z90.49 Acquired absence of other specified parts of digestive tract; Z79.899 Other long term (current) drug therapy; K59.09 Other constipation; I25.2 Old myocardial infarction
CPT/HCPCS: 36000; 36415; 74176; 80053; 81000; 82306; 83605; 83690; 85025; 85610; 87077; 87086; 87186; 94640; 94760; 96360; 96361; 96365; 96374; 99285; G0378; J0696; J1170; J1650; A9270-GY

== ENCOUNTER 2016-09-13 03:13 | Observation (INO) | payer MEDICARE, OTHER ==
--- NOTE | 2016-09-13 03:36 | ERPHSYRPT ---
- History of Present Illness Time Seen by Provider: 09/13/16 03:31 Historian: patient, EMS Exam Limitations: no limitations Physician History: pt states that he had w/u for abd pain here last month and now it recurs also with left flank and left lower chest pain;he relates paraplegic and prior colon cancer; Timing/Duration: week(s), intermittent Quality: cramping, fullness, sharpness Abdominal Pain Onset Location: epigastric, generalized abdomen, flank Pain Radiation: flank Severity of Pain-Max: moderate Severity of Pain-Current: moderate Modifying Factors: Improves With: nothing Associated Symptoms: denies symptoms Previous symptoms: different symptoms, recently seen, recently treated Allergies/Adverse Reactions: No Known Drug Allergies Allergy (Verified 08/15/16 09:20) Home Medications: Atorvastatin Calcium [Lipitor] 40 mg PO HS 05/18/16 [History] Clopidogrel Bisulfate 75 mg [PLAVIX 75 MG Tablet] 75 mg PO DAILY 05/18/16 [History] Fluticasone/Vilanterol [Breo Ellipta 100-25 Mcg INH] 1 each IH BID 05/18/16 [ History] Isosorbide Mononitrate 60 mg [Imdur 60MG] 60 mg PO HS 05/18/16 [History] Metoprolol Succinate 25 mg PO BID 05/18/16 [History] Pregabalin [Lyrica 150Mg] 150 mg PO BID 05/18/16 [History] Ranitidine HCl [Zantac] 150 mg PO BID 05/18/16 [History] Testosterone Cypionate 200 mg IM UD 05/18/16 [History] Trazodone HCl 50 mg [Desyrel 50 mg] 50 mg PO HS 05/18/16 [History] Venlafaxine HCl [Effexor Xr] 150 mg PO DAILY 05/18/16 [History] Aspirin [Aspirin EC] 81 mg PO DAILY 06/19/16 [History] Bisacodyl 10 mg [Dulcolax 10 MG SUPP] 10 mg RC .EVERYOTHERDAY 06/19/16 [ History] Cranberry 500 mg PO HS 06/19/16 [History] Docusate Sodium 100 mg [Colace 100 MG] 100 mg PO .6X/DAILY 06/19/16 [ History] Losartan/Hydrochlorothiazide [Losartan-Hctz 100-12.5 mg Tab] 1 each PO DAILY 09/28 [History] Morphine Sulfate [Morphine Sulfate ER] 60 mg PO BID 06/19/16 [History] Multivitamin [Multivitamins] 1 each PO DAILY 06/19/16 [History] Naloxegol Oxalate [Movantik] 25 mg PO DAILY 06/19/16 [History] Nitroglycerin 0.4 mg SL Q5MIN PRN MR X 3 PRN 06/19/16 [History] Polyethylene Glycol 3350 17 gm [Miralax Powder 17GM PACKET] 17 gm PO QAM 09/28 [History] Sennosides/Docusate Sodium [Doc-Q-Lax Tablet] 2 tab PO HS 06/19/16 [History] [place]-3 Acid Ethyl Esters 2 tab PO BID 08/15/16 [History] Hx Tetanus, Diphtheria Vaccination/Date Given: Yes Hx Influenza Vaccination/Date Given: No Hx Pneumococcal Vaccination/Date Given: (2011) - Review of Systems Constitutional: No Fever, No Chills Eyes: No Symptoms Ears, Nose, & Throat: No Symptoms Respiratory: No Cough, No Dyspnea Cardiac: No Chest Pain, No Edema, No Syncope Abdominal/Gastrointestinal: Abdominal Pain, No Nausea, No Vomiting, No Diarrhea Genitourinary Symptoms: Flank Pain, No Dysuria Musculoskeletal: No Back Pain, No Neck Pain Skin: No Rash Neurological: No Dizziness, No Focal Weakness, No Sensory Changes Psychological: No Symptoms Endocrine: No Symptoms All Other Systems: Reviewed and Negative - Past Medical History Pertinent Past Medical History: Yes Neurological History: Paralysis, Other ENT History: No Pertinent History Cardiac History: Angina, Congestive Heart Failure, Coronary Artery Disease, High Cholesterol, Hypertension, Myocardial Infarction (AR) Respiratory History: Bronchitis Endocrine Medical History: No Pertinent History Musculoskeletal History: Fractures GI Medical History: Colorectal Cancer, GI Bleed History: No Pertinent History Psycho-Social History: No Pertinent History Male Reproductive Disorders: No Pertinent History 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 Left leg operation times 3, COLON CA AND RESECTION IN NOV, - Social History Smoking Status: Former smoker How long have you smoked: 40 years Exposure to second hand smoke: No Alcohol Use: None Drug Use: none Patient Lives Alone: No Significant Family History: heart disease, diabetes - Nursing Vital Signs Nursing Vital Signs: Initial Vital Signs Temperature 98.5 F Temperature Source Oral Pulse Rate 87 Respiratory Rate 18 Blood Pressure [] 128/58 Pain Intensity 6 - Physical Exam General Appearance: no apparent distress, alert Eye Exam: PERRL/EOMI, eyes nml inspection Ears, Nose, Throat Exam: normal ENT inspection, pharynx normal, moist mucous membranes Neck Exam: normal inspection, non-tender, supple, full range of motion Respiratory Exam: normal breath sounds, lungs clear, No respiratory distress Cardiovascular Exam: regular rate/rhythm, normal heart sounds Gastrointestinal/Abdomen Exam: soft, No tenderness, No mass Rectal Exam: deferred Back Exam: normal inspection, normal range of motion, No CVA tenderness, No vertebral tenderness Extremity Exam: normal inspection, normal range of motion, pelvis stable Neurologic Exam: alert, oriented x 3, cooperative, normal mood/affect, nml cerebellar function, sensation nml, No motor deficits Skin Exam: normal color, warm, dry SpO2: 94 Oxygen Delivery: Room Air - Course Nursing assessment & vital signs reviewed: Yes EKG Interpreted by Me: Sinus Rhythm, NORMAL QRS, Non-specific ST Changes - CT Exams Abdomen/Pelvis CT Interpretation: Tele-radiologist Report, Other (hydronephrosis) Ordered Tests: Active Orders 24 hr Category Date Time Status EKG-ER Only STAT Care 09/13/16 03:44 Active IV Insertion STAT Care 09/13/16 03:44 Active ABDOMEN AND PELVIS W/0 CONTRAS [CT] Stat Exams 09/13/16 04:00 Taken AMYLASE Stat Lab 09/13/16 03:51 Completed CBC W DIFF Stat Lab 09/13/16 03:51 Completed CMP Stat Lab 09/13/16 03:51 Completed LIPASE Stat Lab 09/13/16 03:51 Completed Lactic Acid Stat Lab 09/13/16 03:48 Completed Lactic Acid Stat Lab 09/13/16 05:37 Ordered Lactic Acid Stat Lab 09/13/16 05:53 Ordered NT PRO BNP Stat Lab 09/13/16 03:51 Completed Occult Blood,Stool Other Stat Lab 09/13/16 03:42 Uncollected TROPONIN Stat Lab 09/13/16 03:51 Completed UA W/RFX UR CULTURE Stat Lab 09/13/16 03:42 Ordered Medication Summary Generic Name Dose Route Start Last Admin Trade Name Vern PRN Reason Stop Dose Admin Sodium Chloride 1,000 mls @ 999 mls/hr 09/13/16 05:36 Sodium Chloride 0.9% 1000 Ml IV 09/13/16 06:36 .Q1H1M STA Potassium Chloride 100 mls @ 50 mls/hr 09/13/16 05:47 Potassium Chloride 20 Meq In Water 100ml IV 09/13/16 07:46 STAT ONE Discontinued Medications Generic Name Dose Route Start Last Admin Trade Name Freq PRN Reason Stop Dose Admin Hydromorphone HCl 1 mg 09/13/16 04:36 09/13/16 04:48 Hydromorphone 1 Mg/Ml Ampule IV 09/13/16 04:37 1 mg STAT ONE Administration Hydromorphone HCl Confirm 09/13/16 04:47 Hydromorphone 1 Mg/Ml Ampule Administered 09/13/16 04:48 Dose 1 mg .ROUTE .STK-MED ONE Hydromorphone HCl 1 mg 09/13/16 05:48 Hydromorphone 1 Mg/Ml Ampule IV 09/13/16 05:49 STAT ONE Lab/Rad Data: Laboratory Result Diagrams 09/13/16 03:51 09/13/16 03:51 Laboratory Results 09/13/16 09/13/16 09/13/16 Range/Units 03:51 03:51 03:48 WBC 5.4 (4.0-10.5) K/mm3 RBC 5.78 H (4.1-5.6) M/mm3 Hgb 16.2 (12.5-18.0) gm/dl Hct 48.5 (42-50) % MCV 83.9 (78-100) fl MCH 28.0 (26-32) pg MCHC 33.4 (32-36) g/dl RDW 14.9 H (11.5-14.0) % Plt Count 147 L (150-450) K/mm3 MPV 9.9 H (6-9.5) fl Gran % 50.0 (36.0-66.0) % Lymphocytes % 34.5 (24.0-44.0) % Monocytes % 11.4 (0.0-12.0) % Eosinophils % 3.7 (0.00-5.0) % Basophils % 0.4 (0.0-0.4) % Basophils # 0.02 (0-0.4) Sodium 135 L (136-145) mEq/L Potassium 3.1 L (3.5-5.1) mEq/L Chloride 94 L (98-107) mEq/L Carbon Dioxide 26.9 (21-32) mEq/L Anion Gap 16.7 H (5-15) MEQ/L BUN 15 (9-20) mg/dL Creatinine 0.79 (0.55-1.30) mg/dl Estimated GFR > 60 ML/MIN Glucose 133 H (70-110) MG/DL Lactic Acid 2.5 H (0.4-2.0) Calcium 8.7 (8.5-10.1) mg/dL Total Bilirubin 0.50 (0.2-1.0) mg/dL AST 47 H (15-37) U/L ALT 97 H (12-78) U/L Alkaline Phosphatase 185 H (46-116) U/L Troponin I < 0.017 (0.000-0.056) ng/ml NT-Pro-B Natriuret Pep 23 (0-125) pg/ml Serum Total Protein 6.8 (6.4-8.2) gm/dL Albumin 3.5 (3.4-5.0) g/dL Amylase 117 H (25-115) U/L Lipase 467 H (73-393) U/L - Progress Progress: improved, re-examined Progress Note: 09/13/16 05:53 discussed with pt and family and Dr. Gorman covering and will admit and anchor pineda to make sure urinary is drained. Discussed with : Vita Will see patient in: hospital (observation) Counseled pt/family regarding: lab results, diagnosis, need for follow-up, rad results - Departure Time of Disposition: 06:00 Departure Disposition: Observation Clinical Impression: Hydronephrosis, Chronic pain syndrome, Pancreatitis Condition: Good Critical Care Time: No
[2016-09-13 03:55] LABS: Lactic Acid 2.5 (0.4-2.0)
[2016-09-13 03:57] LABS: BASOPHIL % 0.4 % (0.0-0.4); Eosinophil % 3.7 % (0.00-5.0); Lymphocytes % 34.5 % (24.0-44.0); Mean Cell Volume 83.9 fl (78-100); Mean Platelet Volume 9.9 fl (6-9.5); Monocytes % 11.4 % (0.0-12.0); Platelet Count 147 K/mm3 (150-450); Red Blood Count 5.78 M/mm3 (4.1-5.6); Red Cell Distribution Width 14.9 % (11.5-14.0); White Blood Count 5.4 K/mm3 (4.0-10.5)
[2016-09-13 04:17] LABS: ALBUMIN 3.5 g/dL (3.4-5.0); ALKALINE PHOSPHATASE 185 U/L (46-116); ANION GAP 16.7 MEQ/L (5-15); BLOOD UREA NITROGEN 15 mg/dL (9-20); CHLORIDE 94 mEq/L (98-107); Carbon Dioxide 26.9 mEq/L (21-32); Glucose 133 MG/DL (70-110); LIPASE 467 U/L (73-393); Potassium 3.1 mEq/L (3.5-5.1); SGOT/AST 47 U/L (15-37); SGPT/ALT 97 U/L (12-78); SODIUM 135 mEq/L (136-145); Total Protein 6.8 gm/dL (6.4-8.2)
[2016-09-13 04:24] LABS: TROPONIN < 0.017 ng/ml (0.000-0.056)
[2016-09-13] MEDS ORDERED: Hydromorphone 1 mg/ml Ampule IV ONE ×2 (04:36→05:48)
[2016-09-13] MEDS ORDERED: Hydromorphone 1 mg/ml Ampule ONE ×2 (04:47→05:57)
[2016-09-13] MEDS ORDERED: Sodium Chloride 0.9% 1000 ML 1,000 ML IV STA (05:36)
[2016-09-13] MEDS ORDERED: POTASSIUM CHLORIDE 20 mEq IN WATER 100ML 100 ML IV ONE ×2 (05:47→05:56)
[2016-09-13] MEDS ORDERED: Sodium Chloride 0.9% 1000 ML 1,000 ML ONE (05:56)
[2016-09-13] MEDS ORDERED: NovoLIN R SQ PRN (06:43)
[2016-09-13] MEDS ORDERED: Zofran 4 MG/2 ML VIAL IV PRN (06:43)
[2016-09-13] MEDS: Sodium Chloride 0.9% 1000 ML 1,000 ML IV SCH ×3 (06:55→18:04)
[2016-09-13 07:20] LABS: Bilirubin NEGATIVE (NEGATIVE); COMPLETE URINE MICROSCOPIC? YES; Collection Type VOID; Glucose NEGATIVE (NEGATIVE); Leukocyte Esterase 2+ (NEGATIVE)
[2016-09-13 07:21] LABS: ADD URINE CULTURE? YES (NO); Bacteria MANY /HPF (NEGATIVE); Epithelial Cells FEW /HPF (FEW); WBC 15-25 /HPF (0-5)
[2016-09-13] MEDS: PROTONIX 40 MG IV IV SCH (08:45)
--- NOTE | 2016-09-13 08:58 | XRAY ---
Indication: Left abdomen/back pain. Multiple contiguous axial images obtained through the abdomen and pelvis without contrast as ordered. Comparison: August 15, 2016. Again spinal hardware produces beam artifact degrading images of the lower chest/upper abdomen. Lung bases demonstrates minimal bibasilar dependent atelectasis. Heart is not enlarged. Noncontrasted stomach and bowel loops appear nonobstructed. There remains moderate colonic fecal debris throughout. Stable sigmoid resection with intact anastomosis. No free fluid/air. There is now moderate left-sided hydronephrosis/hydroureter without calculus and worsening right-sided hydronephrosis/hydroureter again without calculus. Urinary bladder is now abnormally distended with again mild circumferential wall thickening and small left anterior diverticulum. Stable periaortic nodes, urinary bladder circumferential wall thickening, small fatty right inguinal hernia, cholecystectomy, and appendectomy. Remaining liver, pancreas, spleen, adrenal glands, kidneys, and ureters unremarkable for noncontrast exam. Bone windows reveal stable multilevel spinal degenerative changes and remote-appearing T11/L1 endplate fractures. Stable left lower back spinal stimulator device and leads. Impression: 1. Again fecal stasis without obstruction. Stable sigmoid resection without complications. 2. New left-sided hydronephrosis/hydroureter with worsening right hydronephrosis/hydroureter. Abnormally distended bladder with chronic wall thickening and diverticulum. Rule out chronic urinary bladder outlet obstruction versus neurogenic bladder. Retrograde pyelogram may yield further information if there remains further clinical concern. 3. Stable periaortic nodes, fatty right inguinal hernia, thoracolumbar fusion surgery, and remote T11/L1 endplate fractures. Comment: Preliminary interpretation was made by C. No discrepancy. CTDI 25.29
[2016-09-13] MEDS ORDERED: Pepcid 20 MG VIAL IV SCH (10:00)
[2016-09-13] MEDS: DILAUDID 2 MG INJECTION IV PRN ×2 (10:19→21:25)
[2016-09-13 11:10] LABS: Potassium 3.9 mEq/L (3.5-5.1)
[2016-09-13] MEDS ORDERED: ROCEPHIN 1 Gm-D5w 50 ml Bag** 1 G/50 ML IVPB IV SCH (12:30)
--- NOTE | 2016-09-13 12:31 | PCM.HP ---
History of Present Illness - Chief Complaint Chief Complaint: Hydronephrosis, Pancreatitis History of Present Illness: is a 70 year old male pt of Dr. Bc Nicole with extensive medical hx including paraplegia who came in to ER this morning via ambulance c/o abdominal pain, generalized. He woke at 2:30 this morning c/o periumbilical and generalized abd pain, 10/10. In ER he was found to have hydronephrosis bilaterally, otherwise CT wtih no acute changes. That pain has resolved but he is left with his LUQ pain which he also states is 10/10 and has been worsening; he has had the pain for some time but over the past 2 weeks it has become constant. He has not been a drinker for 5 years but yesterday had 5 beers. His lipase was somewhat elevated in ER. He is on CLD currently. Lactate was elevated to 2.3 and repeat is 2.4 just now. Mr. Ruby [facility] with some abdominal pain. He was also treated for UTI until 5d ago - he thinks he was on cipro. He does have recurrent UTIs. He has a history of colon cancer with bowel resection by Dr. Paige in Jan. Cancer was Stage II and no chemo or radiation was done. He thinks he may have had an EGD at that time. In Oct 2015 he had a CABG x 4. In Nov 2011 he had a fall from a tree and is paraplegic; had extensive back surgery and rehab. - Review of Systems Abdominal/Gastrointestinal: Abdominal Pain, Constipation, No Nausea, No Vomiting , No Hematochezia, No Melena Genitourinary Symptoms: Other (initial urine is clear, but end of stream is white), No Dysuria, No Frequency Psychological: No Depression, No Suicidal Ideations All Other Systems: Reviewed and Negative Medications & Allergies Home Medications: Home Medication List Atorvastatin Calcium [Lipitor] 40 mg PO HS 05/18/16 [History Confirmed 09/13/16] Clopidogrel Bisulfate 75 mg [PLAVIX 75 MG Tablet] 75 mg PO DAILY 05/18/16 [History Confirmed 09/13/16] Fluticasone/Vilanterol [Breo Ellipta 100-25 Mcg INH] 1 each IH BID 05/18/16 [ History Confirmed 09/13/16] Isosorbide Mononitrate 60 mg [Imdur 60MG] 60 mg PO HS 05/18/16 [History Confirmed 09/13/16] Metoprolol Succinate 25 mg PO BID 05/18/16 [History Confirmed 09/13/16] Pregabalin [Lyrica 150Mg] 150 mg PO BID 05/18/16 [History Confirmed 09/13/16] Ranitidine HCl [Zantac] 150 mg PO BID 05/18/16 [History Confirmed 09/13/16] Testosterone Cypionate 200 mg IM UD 05/18/16 [History Confirmed 09/13/16] Trazodone HCl 50 mg [Desyrel 50 mg] 50 mg PO HS 05/18/16 [History Confirmed 09/13/16] Venlafaxine HCl [Effexor Xr] 150 mg PO DAILY 05/18/16 [History Confirmed ] Aspirin [Aspirin EC] 81 mg PO DAILY 06/19/16 [History Confirmed 09/13/16] Bisacodyl 10 mg [Dulcolax 10 MG SUPP] 10 mg RC .EVERYOTHERDAY 06/19/16 [ History Confirmed 09/13/16] Cranberry 500 mg PO HS 06/19/16 [History Confirmed 09/13/16] Docusate Sodium 100 mg [Colace 100 MG] 200 mg PO TID 06/19/16 [History Confirmed 09/13/16] Losartan/Hydrochlorothiazide [Losartan-Hctz 100-12.5 mg Tab] 1 each PO DAILY 09/28 [History Confirmed 09/13/16] Morphine Sulfate [Morphine Sulfate ER] 60 mg PO BID 06/19/16 [History Confirmed 09/13/16] Multivitamin [Multivitamins] 1 each PO DAILY 06/19/16 [History Confirmed ] Naloxegol Oxalate [Movantik] 25 mg PO DAILY 06/19/16 [History Confirmed 09/13/16 ] Nitroglycerin 0.4 mg SL Q5MIN PRN MR X 3 PRN 06/19/16 [History Confirmed ] Polyethylene Glycol 3350 17 gm [Miralax Powder 17GM PACKET] 17 gm PO QAM 09/28 [History Confirmed 09/13/16] Sennosides/Docusate Sodium [Doc-Q-Lax Tablet] 2 tab PO HS 06/19/16 [History Confirmed 09/13/16] [place]-3 Acid Ethyl Esters 2 tab PO BID 08/15/16 [History Confirmed 09/13/16] Allergies/Adverse Reactions: Allergies Allergy/AdvReac Type Severity Reaction Status Date / Time No Known Drug Allergies Allergy Verified 08/15/16 09:20 - Past Medical History Past Medical History: Yes Neurological History: Paralysis, Other ENT History: No Pertinent History Cardiac History: Angina, Congestive Heart Failure, Coronary Artery Disease, High Cholesterol, Hypertension, Myocardial Infarction ([place]) Respiratory History: Bronchitis Endocrine Medical History: No Pertinent History Musculoskelatal History: Fractures GI Medical History: Colorectal Cancer, GI Bleed History: No Pertinent History Pyscho-Social History: No Pertinent History Male Reproductive Disorders: No Pertinent History 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 Left leg operation times 3, COLON CA AND RESECTION IN NOV, - Social History Smoking Status: Former smoker How long have you smoked: 40 years Exposure to second hand smoke: No Alcohol: Rarely Drug Use: none Significant Family History: heart disease, diabetes - Physical Exam Vital Signs: Vital Signs - 24 hr Temp Pulse Resp BP Pulse Ox 09/13/16 12:00 18 09/13/16 11:12 98.2 F 85 18 123/73 94 L 09/13/16 08:20 97.9 F 82 18 134/75 92 L 09/13/16 06:50 97.9 F 82 134/75 09/13/16 06:00 94 L 09/13/16 03:16 98.5 F 87 18 128/58 94 L General Appearance: mild distress, obese Neurologic Exam: alert, oriented x 3, cooperative Eye Exam: eyes nml inspection Ears, Nose, Throat Exam: moist mucous membranes Neck Exam: normal inspection, non-tender, supple, No lymphadenopathy Respiratory Exam: normal breath sounds, lungs clear, No crackles/rales, No rhonchi, No wheezing Cardiovascular Exam: regular rate/rhythm, normal heart sounds, No murmur Gastrointestinal/Abdomen Exam: soft, tenderness (epigastrum and LUQ), No mass, No guarding, No rebound Back Exam: other (midline scar from lumbar region to superior thoracic region. lumbar region has some gross deformity near the midline), No CVA tenderness Extremity Exam: No pedal edema, No swelling Skin Exam: normal color, warm, dry Results - Labs Lab/Micro Results: Lab Results-Last 24 Hours 09/13/16 09/13/16 Range/Units 10:50 11:23 Potassium 3.9 (3.5-5.1) mEq/L Lactic Acid 2.4 H (0.4-2.0) Prealbumin 20.3 (18.0-35.7) mg/dL - Radiology Impressions Radiology Exams & Impressions: Radiology Procedures Category Date Time Status KIDNEY [US] Urgent Exams 09/13/16 12:25 Ordered Assessment/Plan (1) Abdominal pain Current Visit: Yes Status: Acute Qualifiers: Abdominal location: left upper quadrant Qualified Code(s): R10.12 - Left upper quadrant pain Assessment & Plan: unsure the etiology; hydronephrosis is present and can cause flank pain. Certainly his lipase is elevated but not extremely high. UTI could also be contributing. However there is a worsening, somewhat chronic nature that is exacerbated today, possibly by the beer he drank last night - consider gastritis or PUD. CT without acute findings aside from hydronephrosis. Consult surgery for in the morning, they may want to consider doing EGD. Recheck amylase /lipase and recheck u/s kidney today. On IV PPI - will add carafate. Will change dilaudid to SLASHER SAWYER. Code(s): R10.9 - UNSPECIFIED ABDOMINAL PAIN (2) UTI (urinary tract infection) Current Visit: Yes Status: Acute Qualifiers: Urinary tract infection type: acute cystitis Hematuria presence: without hematuria Qualified Code(s): N30.00 - Acute cystitis without hematuria Assessment & Plan: Has chronic UTIs. Will go ahead and start IV zosyn since he is in the hospital and having pain with elevated lactate. Code(s): N39.0 - URINARY TRACT INFECTION, SITE NOT SPECIFIED (3) Lactate blood increased Current Visit: Yes Status: Acute Assessment & Plan: will increase fluids gently and recheck in 2 hrs. Code(s): R79.89 - OTHER SPECIFIED ABNORMAL FINDINGS OF BLOOD CHEMISTRY (4) Chronic pain syndrome Current Visit: Yes Status: Chronic Code(s): G89.4 - CHRONIC PAIN SYNDROME (5) Hydronephrosis Current Visit: Yes Status: Acute Qualifiers: Hydronephrosis type: unspecified Qualified Code(s): N13.30 - Unspecified hydronephrosis Assessment & Plan: Unsure the etiology; pineda catheter was placed in ER. U/S to recheck the status of the hydronephrosis. Code(s): N13.30 - UNSPECIFIED HYDRONEPHROSIS (6) Pancreatitis Current Visit: Yes Status: Acute Qualifiers: Chronicity: acute Pancreatitis type: alcohol induced Acute pancreatitis complication: no infection or necrosis Qualified Code(s): K85.20 - Alcohol induced acute pancreatitis without necrosis or infection Assessment & Plan: Likely related to the alcohol; unsure if this is causing his pain. Code(s): K85.90 - ACUTE PANCREATITIS WITHOUT NECROSIS OR INFECTION, UNSP (7) CAD (coronary artery disease) Current Visit: Yes Status: Chronic Qualifiers: Coronary Disease-Associated Artery/Lesion type: bypass graft [place] vs. transplanted heart: [place] heart Associated angina: without angina Qualified Code(s): I25.810 - Atherosclerosis of coronary artery bypass graft(s) without angina pectoris Assessment & Plan: will hydrate carefully. Code(s): I25.10 - ATHSCL HEART DISEASE OF [place] CORONARY ARTERY W/O ANG PCTRS (8) Paraplegia Current Visit: Yes Status: Chronic Assessment & Plan: stable. chronic UTIs. Code(s): G82.20 - PARAPLEGIA, UNSPECIFIED
[2016-09-13] MEDS ORDERED: Sodium Chloride 0.45% 500ML 500 ML IV ONE (13:04)
[2016-09-13] MEDS ORDERED: Nitrostat 0.4 MG Tablet SL PRN (13:40)
[2016-09-13] MEDS ORDERED: Miralax Powder 17GM PACKET PO PRN (13:40)
[2016-09-13] MEDS: Zosyn 3.375GM/100 Ml D5W 3.375 GM/100 ML IVPB IV SCH ×2 (13:58→18:05)
[2016-09-13] MEDS ORDERED: Advair Hfa 115/21 Common canister IH SCH (14:00)
[2016-09-13] MEDS ORDERED: MEDICATION INTERVENTION MC PRN (14:07)
[2016-09-13] MEDS: DILAUDID 1 MG/1ML PCA IV PRN ×2 (14:44→19:34)
[2016-09-13] MEDS: LYRICA 150MG PO SCH ×2 (14:56→21:24)
[2016-09-13] MEDS: Cozaar 50 MG PO SCH (16:31)
[2016-09-13] MEDS: Toprol-Xl 25MG Tablets PO SCH ×2 (16:33→21:22)
[2016-09-13] MEDS: Carafate 1 GM PO SCH ×2 (16:35→21:22)
[2016-09-13] MEDS: Colace 100 MG PO SCH ×2 (16:36→21:24)
[2016-09-13] MEDS: Effexor XR 75 MG PO SCH (16:36)
[2016-09-13] MEDS: ECOTRIN 81 MG PO SCH (16:38)
[2016-09-13] MEDS ORDERED: ENOXAPARIN SODIUM SQ SCH (18:00)
--- NOTE | 2016-09-13 20:08 | XRAY ---
Indication: Left flank pain. Two-dimensional renal sonogram performed. Comparison: April 14, 2012. Again both kidneys normal in reniform shape with normal perfusion. Right kidney measures 10.2 x 4.5 x 5.5 cm and the left measures 10.7 x 6.2 x 5.1 cm. Both kidneys are now mildly hydronephrotic without suspicious renal mass or perinephric fluid. Corticomedullary differentiation preserved without cortical thinning. Urinary bladder is nominally distended with Dinero balloon catheter in situ. There are 2 tiny bladder diverticuli. Impression: New bilateral hydronephrosis without renal mass. Incidental bladder diverticuli. Comment: Preliminary report was given.
[2016-09-13] MEDS: Pepcid 20 MG PO SCH (21:23)
[2016-09-13] MEDS: hydroDIURIL 25 MG PO SCH (21:23)
[2016-09-13] MEDS ORDERED: NON-FORMULARY ITEM (Fluticasone/Vilanterol [Breo Ellipta 100-25 Mcg Inh] 1 EACH) IH SCH (22:00)
[2016-09-13] MEDS ORDERED: Senokot-S Tablet PO SCH (22:00)
[2016-09-13] MEDS ORDERED: DESYREL 50 MG PO SCH (22:00)
[2016-09-13] MEDS ORDERED: Imdur 60MG PO SCH (22:00)
[2016-09-13] MEDS ORDERED: NON-FORMULARY ITEM (Ranitidine Hcl [Zantac] 150 MG) PO SCH (22:00)
[2016-09-14] MEDS: Sodium Chloride 0.9% 1000 ML 1,000 ML IV SCH (01:23)
[2016-09-14] MEDS: Zosyn 3.375GM/100 Ml D5W 3.375 GM/100 ML IVPB IV SCH ×3 (01:23→12:16)
[2016-09-14 05:46] LABS: BASOPHIL % 0.2 % (0.0-0.4); Eosinophil % 3.1 % (0.00-5.0); Granulocytes % 58.1 % (36.0-66.0); Lymphocytes % 27.5 % (24.0-44.0); Mean Cell Volume 84.3 fl (78-100); Mean Corpuscular Hemoglobin 27.9 pg (26-32); Mean Platelet Volume 10.3 fl (6-9.5); Monocytes % 11.1 % (0.0-12.0); Platelet Count 133 K/mm3 (150-450); Red Blood Count 5.16 M/mm3 (4.1-5.6); Red Cell Distribution Width 14.9 % (11.5-14.0); White Blood Count 5.1 K/mm3 (4.0-10.5)
[2016-09-14 06:01] LABS: LIPASE 184 U/L (73-393)
[2016-09-14 06:22] LABS: ALBUMIN 2.7 g/dL (3.4-5.0); ALKALINE PHOSPHATASE 128 U/L (46-116); ANION GAP 12.8 MEQ/L (5-15); BLOOD UREA NITROGEN 11 mg/dL (9-20); CHLORIDE 109 mEq/L (98-107); Glucose 96 MG/DL (70-110); Potassium 3.9 mEq/L (3.5-5.1); SGOT/AST 21 U/L (15-37); SGPT/ALT 62 U/L (12-78); SODIUM 144 mEq/L (136-145); Total Protein 5.3 gm/dL (6.4-8.2)
[2016-09-14] MEDS: Carafate 1 GM PO SCH ×3 (07:35→16:18)
[2016-09-14] MEDS: Toprol-Xl 25MG Tablets PO SCH (08:14)
[2016-09-14] MEDS: LYRICA 150MG PO SCH (08:14)
[2016-09-14] MEDS: PROTONIX 40 MG IV IV SCH (08:14)
[2016-09-14] MEDS: Effexor XR 75 MG PO SCH (08:15)
[2016-09-14] MEDS: Pepcid 20 MG PO SCH (08:15)
[2016-09-14] MEDS: ECOTRIN 81 MG PO SCH (08:15)
[2016-09-14] MEDS: Cozaar 50 MG PO SCH (08:15)
[2016-09-14] MEDS: Colace 100 MG PO SCH ×2 (08:15→14:44)
[2016-09-14] MEDS: hydroDIURIL 25 MG PO SCH (08:15)
[2016-09-14] MEDS ORDERED: Dulcolax 10 MG SUPP PR PRN (08:21)
[2016-09-14] MEDS ORDERED: ROCEPHIN 1 Gm-D5w 50 ml Bag** 1 G/50 ML IVPB IV SCH (10:00)
[2016-09-14] MEDS ORDERED: NON-FORMULARY ITEM (Naloxegol Oxalate [Movantik] 25 MG) PO SCH (10:00)
[2016-09-14] MEDS ORDERED: NON-FORMULARY ITEM (Venlafaxine Hcl [Effexor Xr] 150 MG) PO SCH (10:00)
[2016-09-14] MEDS ORDERED: NON-FORMULARY ITEM (Losartan/Hydrochlorothiazide [Losartan-Hctz 100-12.5 Mg Tab] 1 EACH) PO SCH (10:00)
--- NOTE | 2016-09-14 13:50 | CONS ---
CONSULT DATE: 09/14/2016 HISTORY: A 70 year-old gentleman with history of paraplegia, history of colon cancer, came in with some abdominal aches and pains. He was found to have bilateral hydronephrosis and was new compared to his prior right hydronephrosis that had worsened some. He had some bladder wall thickening. He was set up to see urologist to decide if he needs cystoscopy or not. Distended bladder and some chronic wall thickening. Otherwise there are no signs of sigmoid mass. There were no obvious masses noted in left upper quadrant. He has had chronic back pain from his paraplegia from injury in the past and is charging his stimulator at this time to help improve some. He had been treated for urinary tract infection a month or so ago. He does have recurrent urinary tract infection. PAST MEDICAL HISTORY: Heart disease, heart failure, coronary artery disease, hypercholesterolemia, hypertension, history of myocardial infarction in the past as well as colon cancer and paralysis. 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 He also had a coronary artery bypass graft four vessel in the past. He had extensive back surgery and rehab status post fall from a tree and paraplegia in 2011. He had some hypercholesterolemia, heart disease, chronic obstructive pulmonary disease, hypertension, partial sigmoid colon resection and reanastomosis. He had cholecystectomy, appendectomy, cardiac stents, cardiac cath in the past. A bubble bag operation. Leg operation. MEDICATIONS: Atorvastatin, clopidogrel, fluconazole, Breo Ellipta, isosorbide mononitrate, metoprolol, Lyrica, Zantac, testosterone, Trazodone, Effexor, aspirin, Dulcolax, docusate sodium, losartan hydrochlorothiazide, morphine sulfate extended release, multivitamin, Movantik, nitroglycerin, [place]-3. ALLERGIES: NKDA. FAMILY HISTORY: Negative in regards to this problem. SOCIAL HISTORY: Former smoker. No alcohol abuse. REVIEW OF SYSTEMS: Twelve systems reviewed per admission assessment. No chest pain or palpitations other systems negative or noncontributory as above multiple medical problems noted above. PHYSICAL EXAMINATION: GENERAL: No acute distress. HEENT: Sclera nonicteric. NECK: No JVD. CHEST: Equal excursion, nonlabored breathing. CVS: Regular rate and rhythm. ABDOMEN: Soft. He is tenderness bilateral rib areas. The abdomen itself is very soft. No rebound. No guarding. No peritoneal signs. EXTREMITIES: He is status post paraplegia. NEURO: Alert, moving extremities grossly symmetrically. LAB DATA AND TESTS: Liver function tests were okay. Bilirubin 0.5. Amylase and lipase within normal limits. Lactic acid seems to be okay today. White blood cell count 5.1, hemoglobin 14.4, PLT 133,000. IMPRESSION: History of some left-sided more lateral rib upper outer quadrant aches and pain unclear etiology. It could a combination of back problems with extensive back surgery and surgeries in the past. Other etiology could be urinary etiology whether some thickening of the bladder causing the hydronephrosis or other etiology. There is no obvious mass or palpable hernia in left upper quadrant. No obvious acute general surgical intervention necessary at this time. I feel he would benefit from following up with urologist. Otherwise he is to follow up in our office to set up interventional outpatient colonoscopy and for his one year follow up for his colon cancer. He understands and agrees to the plan. I will sign off at this time as no emergent surgery is necessary. Advance diet as tolerated. I will have him follow up in the office to schedule potential outpatient colonoscopy.
--- NOTE | 2016-09-14 15:50 | PCM.DCORD ---
- Discharge Discharge Date: 09/14/16 Disposition: Home, Self-Care Condition: Good Prescriptions: New Cephalexin Mh 500 mg [Keflex 500 mg] 500 mg PO TID #21 capsule Continue Venlafaxine HCl [Effexor Xr] 150 mg PO DAILY Testosterone Cypionate 200 mg IM UD Fluticasone/Vilanterol [Breo Ellipta 100-25 Mcg INH] 1 each IH BID Metoprolol Succinate 25 mg PO BID Isosorbide Mononitrate 60 mg [Imdur 60MG] 60 mg PO HS Clopidogrel Bisulfate 75 mg [PLAVIX 75 MG Tablet] 75 mg PO DAILY Trazodone HCl 50 mg [Desyrel 50 mg] 50 mg PO HS Pregabalin [Lyrica 150Mg] 150 mg PO BID Ranitidine HCl [Zantac] 150 mg PO BID Atorvastatin Calcium [Lipitor] 40 mg PO HS Sennosides/Docusate Sodium [Doc-Q-Lax Tablet] 2 tab PO HS Naloxegol Oxalate [Movantik] 25 mg PO DAILY Nitroglycerin 0.4 mg SL Q5MIN PRN MR X 3 PRN PRN Reason: Chest Pain Bisacodyl 10 mg [Dulcolax 10 MG SUPP] 10 mg RC .EVERYOTHERDAY Docusate Sodium 100 mg [Colace 100 MG] 200 mg PO TID Cranberry 500 mg PO HS Morphine Sulfate [Morphine Sulfate ER] 60 mg PO BID Losartan/Hydrochlorothiazide [Losartan-Hctz 100-12.5 mg Tab] 1 each PO DAILY Multivitamin [Multivitamins] 1 each PO DAILY Aspirin [Aspirin EC] 81 mg PO DAILY Polyethylene Glycol 3350 17 gm [Miralax Powder 17GM PACKET] 17 gm PO QAM [place]-3 Acid Ethyl Esters 2 tab PO BID Additional Instructions: Leave Dinero until Urology appointment Follow up with: MICHELLE MATOS [Primary Care Provider] - 09/21/16 2:45 pm DUKE NIELSON [COURTESY STAFF] - 09/21/16 8:40 am ([facility]) LOKESH WHITE NP [ALLIED HEALTH PROFESSION STAFF] - 09/17/16 10:15 am ([facility]) Forms: Patient Portal Information
[2016-09-14 16:53] VITALS: BP 159/81; PULSE 86; O2SAT 95
--- NOTE | 2016-09-14 17:37 | PCM.DS ---
Discharge Summary Date of Admission: 09/13/16 06:40 Date of Discharge: 09/14/16 Admitting Physician: LUIS ANTONIO SANDHU Consults: Consults on Case 09/13/16 12:24 Consult Surgery ROUTINE 09/14/16 08:20 Consult Urology ROUTINE Primary Care Provider: MICHELLE MATOS Allergies Allergies No Known Drug Allergies Allergy (Verified 08/15/16 09:20) Hospital Summary - Hospital Course Hospital Course: he was having severe left upper quadrant pains he has had intermittently but were more severe. He reports his who caths every 4 hours for him has had more trouble getting urine out for awhile and then was having some leakage but reports that was better the past week. He drinks lots of water. He did drink 5 beers on the Holiday weekend and had previously given up all alcohol. He was not vomiting bowel regimen has been controlled. Dr. Caballero was consulted who saw him today and does not find any surgical intervention need. He had the hydronephrosis with bladder distension on CT and after Dinero only mild hydronephrosis on the ultrasound. There was the bladder diverticuli as well. He has chronic neurogenic bladder and recurrent uti but no fever or elevated wbc and no stranding. he was placed on zosyn. He was NPO for his elevated lipase that trended down. He was still having left lower rib pain/ left upper flank/ back pain that is more consistent with his chronic and some tenderness to palpation. the exam is limited by the paraplegia. He felt safe and desired to return home with continued outpatient f/u with the difficulty cathing and the urinary retention with hydronephrosis the Dinero is left in place with f/u on with Dr. Thorpe's office of urology. He did have evidence of UTI and culture is pending will use keflex for now pending the culture results. - Vitals & Intake/Output Vital Signs: Vital Signs Temperature 98.0 F 09/14/16 16:00 Pulse Rate 86 09/14/16 16:00 Respiratory Rate 18 09/14/16 16:00 Blood Pressure 159/81 09/14/16 16:00 O2 Sat by Pulse Oximetry 95 09/14/16 16:00 Intake & Output: Intake & Output 09/12/16 09/13/16 09/14/16 09/15/16 11:59 11:59 11:59 11:59 Intake Total 6541 420 Output Total 0986 1786 684 Balance -4342 -482 -251 Weight 88.859 kg - Lab Result Diagrams: 09/14/16 05:10 09/14/16 05:10 Lab Results-Last 24 Hrs: Lab Results-Last 24 Hours 09/14/16 09/14/16 09/14/16 Range/Units 05:10 05:10 05:10 WBC 5.1 (4.0-10.5) K/mm3 RBC 5.16 (4.1-5.6) M/mm3 Hgb 14.4 (12.5-18.0) gm/dl Hct 43.5 (42-50) % MCV 84.3 (78-100) fl MCH 27.9 (26-32) pg MCHC 33.1 (32-36) g/dl RDW 14.9 H (11.5-14.0) % Plt Count 133 L (150-450) K/mm3 MPV 10.3 H (6-9.5) fl Gran % 58.1 (36.0-66.0) % Lymphocytes % 27.5 (24.0-44.0) % Monocytes % 11.1 (0.0-12.0) % Eosinophils % 3.1 (0.00-5.0) % Basophils % 0.2 (0.0-0.4) % Basophils # 0.01 (0-0.4) Sodium 144 (136-145) mEq/L Potassium 3.9 (3.5-5.1) mEq/L Chloride 109 H (98-107) mEq/L Carbon Dioxide 26.0 (21-32) mEq/L Anion Gap 12.8 (5-15) MEQ/L BUN 11 (9-20) mg/dL Creatinine 0.67 (0.55-1.30) mg/dl Estimated GFR > 60 ML/MIN Glucose 96 (70-110) MG/DL Lactic Acid (0.4-2.0) Calcium 8.2 L (8.5-10.1) mg/dL Total Bilirubin 0.50 (0.2-1.0) mg/dL AST 21 (15-37) U/L ALT 62 (12-78) U/L Alkaline Phosphatase 128 H (46-116) U/L Serum Total Protein 5.3 L (6.4-8.2) gm/dL Albumin 2.7 L (3.4-5.0) g/dL Amylase 62 (25-115) U/L Lipase 184 (73-393) U/L 09/14/16 Range/Units 05:19 WBC (4.0-10.5) K/mm3 RBC (4.1-5.6) M/mm3 Hgb (12.5-18.0) gm/dl Hct (42-50) % MCV (78-100) fl MCH (26-32) pg MCHC (32-36) g/dl RDW (11.5-14.0) % Plt Count (150-450) K/mm3 MPV (6-9.5) fl Gran % (36.0-66.0) % Lymphocytes % (24.0-44.0) % Monocytes % (0.0-12.0) % Eosinophils % (0.00-5.0) % Basophils % (0.0-0.4) % Basophils # (0-0.4) Sodium (136-145) mEq/L Potassium (3.5-5.1) mEq/L Chloride (98-107) mEq/L Carbon Dioxide (21-32) mEq/L Anion Gap (5-15) MEQ/L BUN (9-20) mg/dL Creatinine (0.55-1.30) mg/dl Estimated GFR ML/MIN Glucose (70-110) MG/DL Lactic Acid 0.9 (0.4-2.0) Calcium (8.5-10.1) mg/dL Total Bilirubin (0.2-1.0) mg/dL AST (15-37) U/L ALT (12-78) U/L Alkaline Phosphatase (46-116) U/L Serum Total Protein (6.4-8.2) gm/dL Albumin (3.4-5.0) g/dL Amylase (25-115) U/L Lipase (73-393) U/L - Radiology Exams Ordered Rad Exams-Entire Visit: Radiology Procedures Category Date Time Status KIDNEY [US] Urgent Exams 09/13/16 12:25 Completed - Procedures and Test Procedures and Tests throughout Hospitalization: Therapy Orders & Screens 09/13/16 08:46 OT Screen per Nursing Assess Comment: Protocol Order Physician Instructions: Greater than 3 points order OT Admission Screening Reason For Exam: Triggered on Admission Diagnosis: Hydronephrosis, Pancreatitis Open Wound/Cellutlitis/Pressure Ulcers: Yes Acute Fx/ORIF/Change in wt bearing status: No Severe MUSCULOSKELETAL pain: No ADL Dysfunction: No Acute CVA w/Hemiparesis/Hemiplegia: No Decreased Functional Mobility/Strength: No Sprain/Strain: No Acute Post-op Mobility Dysfunction: No Total Points: 5 Discharge Exam General Appearance: no apparent distress, other (paraplegia) Neurologic Exam: alert, oriented x 3, cooperative Skin Exam: warm, dry, No rash Eye Exam: No scleral icterus, No pale conjunctivae Ears, Nose, Throat Exam: moist mucous membranes Neck Exam: non-tender, supple Respiratory Exam: normal breath sounds, lungs clear Cardiovascular Exam: regular rate/rhythm, normal heart sounds Gastrointestinal/Abdomen Exam: soft, tenderness (left upper qudrant at the flank /rib area with tenderness around to the back) Extremity Exam: normal inspection, No calf tenderness Final Diagnosis/Problem List - Final Discharge Diagnosis/Problem (1) Neurogenic bladder Current Visit: Yes Status: Acute (2) UTI (urinary tract infection) Current Visit: Yes Status: Acute (3) Lactate blood increased Current Visit: Yes Status: Acute (4) CAD (coronary artery disease) Current Visit: Yes Status: Chronic (5) Paraplegia Current Visit: Yes Status: Chronic (6) Chronic pain syndrome Current Visit: Yes Status: Chronic (7) Pancreatitis Current Visit: Yes Status: Acute (8) Abdominal pain Current Visit: Yes Status: Acute (9) Hydronephrosis Current Visit: Yes Status: Acute - Discharge Disposition: Home, Self-Care Condition: Good Prescriptions: New Cephalexin Mh 500 mg [Keflex 500 mg] 500 mg PO TID #21 capsule Continue Venlafaxine HCl [Effexor Xr] 150 mg PO DAILY Testosterone Cypionate 200 mg IM UD Fluticasone/Vilanterol [Breo Ellipta 100-25 Mcg INH] 1 each IH BID Metoprolol Succinate 25 mg PO BID Isosorbide Mononitrate 60 mg [Imdur 60MG] 60 mg PO HS Clopidogrel Bisulfate 75 mg [PLAVIX 75 MG Tablet] 75 mg PO DAILY Trazodone HCl 50 mg [Desyrel 50 mg] 50 mg PO HS Pregabalin [Lyrica 150Mg] 150 mg PO BID Ranitidine HCl [Zantac] 150 mg PO BID Atorvastatin Calcium [Lipitor] 40 mg PO HS Sennosides/Docusate Sodium [Doc-Q-Lax Tablet] 2 tab PO HS Naloxegol Oxalate [Movantik] 25 mg PO DAILY Nitroglycerin 0.4 mg SL Q5MIN PRN MR X 3 PRN PRN Reason: Chest Pain Bisacodyl 10 mg [Dulcolax 10 MG SUPP] 10 mg RC .EVERYOTHERDAY Docusate Sodium 100 mg [Colace 100 MG] 200 mg PO TID Cranberry 500 mg PO HS Morphine Sulfate [Morphine Sulfate ER] 60 mg PO BID Losartan/Hydrochlorothiazide [Losartan-Hctz 100-12.5 mg Tab] 1 each PO DAILY Multivitamin [Multivitamins] 1 each PO DAILY Aspirin [Aspirin EC] 81 mg PO DAILY Polyethylene Glycol 3350 17 gm [Miralax Powder 17GM PACKET] 17 gm PO QAM [place]-3 Acid Ethyl Esters 2 tab PO BID Instructions: Abdominal Pain-Adult Additional Instructions: Leave Dinero until Urology appointment Follow up with: MICHELLE MATOS [Primary Care Provider] - 09/21/16 2:45 pm DUKE CABALLERO [COURTESY STAFF] - 09/21/16 8:40 am ([facility]) LOKESH WHITE NP [[employer] PROFESSION STAFF] - 09/17/16 10:15 am ([facility]) Forms: Discharge Instructions, Patient Portal Information
== END 2016-09-14 17:00 | disposition home or self-care (01) ==
LOC: ED 03:13 → MED SURG 06:40
PROVIDERS: ADMIT Family Medicine; ATTEND Family Medicine
DX: N31.9 Neuromuscular dysfunction of bladder, unspecified (principal); N39.0 Urinary tract infection, site not specified; I25.810 Atherosclerosis of coronary artery bypass graft(s) without angina pectoris; G82.20 Paraplegia, unspecified; R79.89 Other specified abnormal findings of blood chemistry; G89.4 Chronic pain syndrome; K85.90 Acute pancreatitis without necrosis or infection, unspecified; R10.9 Unspecified abdominal pain; N13.30 Unspecified hydronephrosis; I10 Essential (primary) hypertension; I50.9 Heart failure, unspecified; Z79.899 Other long term (current) drug therapy; I25.2 Old myocardial infarction; Z85.038 Personal history of other malignant neoplasm of large intestine
CPT/HCPCS: 36000; 36415; 51702; 74176; 76770; 80053; 81000; 82150; 83605; 83690; 83880; 84132; 84134; 84484; 85025; 87077; 87086; 87186; 93005; 93268; 96360; 96365; 96374; 99285; G0378; J1170; J1650; J2543; J3480; A9270-GY

== ENCOUNTER 2016-09-22 20:01 | Emergency (ER) | payer MEDICARE, OTHER ==
--- NOTE | 2016-09-22 20:22 | ERPHSYRPT ---
- History of Present Illness Time Seen by Provider: 09/22/16 20:18 Historian: patient Exam Limitations: no limitations Timing/Duration: day(s) (2 days) Activities at Onset: none Quality: pressure, other (suprapubic pressure, only urinating small amount for 2 days) Abdominal Pain Onset Location: suprapubic Pain Radiation: flank (left flank) Severity of Pain-Max: moderate Severity of Pain-Current: moderate Modifying Factors: Improves With: other (usuallys self caths only getting small amounts out, hx recent pineda placement for similar symptoms) Previous symptoms: same symptoms as today Allergies/Adverse Reactions: No Known Drug Allergies Allergy (Verified 09/22/16 20:20) Home Medications: Atorvastatin Calcium [Lipitor] 40 mg PO HS 05/18/16 [History] Clopidogrel Bisulfate 75 mg [PLAVIX 75 MG Tablet] 75 mg PO DAILY 05/18/16 [History] Fluticasone/Vilanterol [Breo Ellipta 100-25 Mcg INH] 1 each IH BID 05/18/16 [ History] Isosorbide Mononitrate 60 mg [Imdur 60MG] 60 mg PO HS 05/18/16 [History] Metoprolol Succinate 25 mg PO BID 05/18/16 [History] Pregabalin [Lyrica 150Mg] 150 mg PO BID 05/18/16 [History] Ranitidine HCl [Zantac] 150 mg PO BID 05/18/16 [History] Testosterone Cypionate 200 mg IM UD 05/18/16 [History] Trazodone HCl 50 mg [Desyrel 50 mg] 50 mg PO HS 05/18/16 [History] Venlafaxine HCl [Effexor Xr] 150 mg PO DAILY 05/18/16 [History] Aspirin [Aspirin EC] 81 mg PO DAILY 06/19/16 [History] Bisacodyl 10 mg [Dulcolax 10 MG SUPP] 10 mg RC .EVERYOTHERDAY 06/19/16 [ History] Cranberry 500 mg PO HS 06/19/16 [History] Docusate Sodium 100 mg [Colace 100 MG] 200 mg PO TID 06/19/16 [History] Losartan/Hydrochlorothiazide [Losartan-Hctz 100-12.5 mg Tab] 1 each PO DAILY 09/28 [History] Morphine Sulfate [Morphine Sulfate ER] 60 mg PO BID 06/19/16 [History] Multivitamin [Multivitamins] 1 each PO DAILY 06/19/16 [History] Naloxegol Oxalate [Movantik] 25 mg PO DAILY 06/19/16 [History] Nitroglycerin 0.4 mg SL Q5MIN PRN MR X 3 PRN 06/19/16 [History] Polyethylene Glycol 3350 17 gm [Miralax Powder 17GM PACKET] 17 gm PO QAM 09/28 [History] Sennosides/Docusate Sodium [Doc-Q-Lax Tablet] 2 tab PO HS 06/19/16 [History] [place]-3 Acid Ethyl Esters 2 tab PO BID 08/15/16 [History] Hx Tetanus, Diphtheria Vaccination/Date Given: Yes Hx Influenza Vaccination/Date Given: No Hx Pneumococcal Vaccination/Date Given: (2011) - Review of Systems Constitutional: No Fever, No Chills Eyes: No Symptoms Ears, Nose, & Throat: No Symptoms Respiratory: No Cough, No Dyspnea Cardiac: No Chest Pain, No Edema, No Syncope Abdominal/Gastrointestinal: Other (suprapubic pressure) Genitourinary Symptoms: Urinary Retention Musculoskeletal: Other (chronic back pain), No Neck Pain Skin: No Rash Neurological: No Dizziness, No Focal Weakness, No Sensory Changes Psychological: No Symptoms Endocrine: No Symptoms All Other Systems: Reviewed and Negative - Past Medical History Pertinent Past Medical History: Yes Neurological History: Paralysis, Other ENT History: No Pertinent History Cardiac History: Angina, Congestive Heart Failure, Coronary Artery Disease, High Cholesterol, Hypertension, Myocardial Infarction ([place]) Respiratory History: Bronchitis Endocrine Medical History: No Pertinent History Musculoskeletal History: Fractures GI Medical History: Colorectal Cancer, GI Bleed History: No Pertinent History Psycho-Social History: No Pertinent History Male Reproductive Disorders: No Pertinent History 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 Left leg operation times 3, COLON CA AND RESECTION IN NOV, - Social History Smoking Status: Former smoker How long have you smoked: 40 years Exposure to second hand smoke: No Alcohol Use: None Drug Use: none Patient Lives Alone: No Significant Family History: heart disease, diabetes - Nursing Vital Signs Nursing Vital Signs: Initial Vital Signs Temperature 98.6 F Temperature Source Oral Pulse Rate 64 Respiratory Rate 18 Blood Pressure [Right Arm] 155/84 Pain Intensity 7 - Physical Exam General Appearance: moderate distress Eye Exam: PERRL/EOMI, eyes nml inspection Ears, Nose, Throat Exam: normal ENT inspection, pharynx normal, moist mucous membranes Neck Exam: normal inspection, non-tender, supple, full range of motion Respiratory Exam: normal breath sounds, lungs clear, No respiratory distress Cardiovascular Exam: regular rate/rhythm, normal heart sounds Gastrointestinal/Abdomen Exam: soft, normal bowel sounds, tenderness ( suprapubic tenderness) Extremity Exam: other (paraplegic paralized from waist down) Neurologic Exam: alert, oriented x 3, cooperative (paraplegic paralyzed from waist down), quill machine tender II-XII nml as tested Skin Exam: normal color, warm, dry SpO2 Interpretation: normal (98%) Ordered Tests: Active Orders 24 hr Category Date Time Status Catheter-[place] Pineda STAT Care 09/22/16 20:16 Active CULTURE,URINE Stat Lab 09/22/16 21:15 Received UA W/ MICROSCOPIC Stat Lab 09/22/16 21:15 Completed Lab/Rad Data: Laboratory Results 09/22/16 Range/Units 21:15 Ur Collection Type CLEAN CATCH Urine Color YELLOW (YELLOW) Urine Appearance CLEAR (CLEAR) Urine pH 8.0 (5-6) Ur Specific [place] 1.005 (1.005-1.025) Urine Protein NEGATIVE (Negative) Urine Ketones NEGATIVE (NEGATIVE) Urine Blood NEGATIVE (0-5) Luis M/ul Urine Nitrite NEGATIVE (NEGATIVE) Urine Bilirubin NEGATIVE (NEGATIVE) Urine Urobilinogen NORMAL (0-1) mg/dL Ur Leukocyte Esterase 1+ (NEGATIVE) Urine Microscopic WBC 5-10 (0-5) /HPF Ur Epithelial Cells FEW (FEW) /HPF Urine Bacteria FEW (NEGATIVE) /HPF Urine Glucose NEGATIVE (NEGATIVE) mg/dL Specimen Received 09/22/16:2114 - Progress Progress: improved Progress Note: 09/22/16 21:30 Patient markedly better after placement of Pineda, He should only with about 100 mils out but on recheck patient no tenderness on his abdomen, Awaiting urinalysis, 09/22/16 21:35 Patient's blood pressure markedly improved after placement of Pineda patient in no distress at this time feeling much better. Will go ahead and discharge patient will leave the Pineda in. Patient will need follow-up with Dr. Thorpe or Dr. Bell. He is to return for acute distress or for severe symptoms. - Departure Time of Disposition: 21:36 Departure Disposition: Home Clinical Impression: Urinary retention, Urinary obstruction Condition: Fair Critical Care Time: No Referrals: MICHELLE MATOS [Primary Care Provider] - Additional Instructions: Return home. Follow-up with Dr. Bell or . Return for acute distress or for severe symptoms. Continue current medications and treatment.
[2016-09-22 21:24] VITALS: BP 155/84; PULSE 64; O2SAT 94
[2016-09-22 21:31] LABS: ADD URINE CULTURE? YES (NO); Bilirubin NEGATIVE (NEGATIVE); Blood NEGATIVE Ery/ul (0-5); COMPLETE URINE MICROSCOPIC? YES; Collection Type CLEAN CATCH; Glucose NEGATIVE (NEGATIVE); Leukocyte Esterase 1+ (NEGATIVE)
[2016-09-22 21:32] LABS: Bacteria FEW /HPF (NEGATIVE); Epithelial Cells FEW /HPF (FEW)
== END 2016-09-22 21:48 | disposition home or self-care (01) ==
LOC: ED 20:01
DX: R33.9 Retention of urine, unspecified (principal); N13.9 Obstructive and reflux uropathy, unspecified; R10.9 Unspecified abdominal pain; Z79.899 Other long term (current) drug therapy
CPT/HCPCS: 51702; 81000; 87086; 99283

== ENCOUNTER 2016-11-25 14:18 | Emergency (ER) | payer MEDICARE, OTHER ==
[2016-11-25] MEDS ORDERED: Sodium Chloride 0.9% 1000 ML 1,000 ML IV SCH (14:30)
[2016-11-25] MEDS ORDERED: MORPHINE SULFATE 2 MG INJ IV ONE (14:46)
[2016-11-25] MEDS ORDERED: Zofran 4 MG/2 ML VIAL IV ONE (14:46)
[2016-11-25] MEDS ORDERED: Zofran 4 MG/2 ML VIAL ONE (14:52)
[2016-11-25] MEDS ORDERED: MORPHINE SULFATE 2 MG INJ ONE (14:53)
[2016-11-25] MEDS ORDERED: Sodium Chloride 0.9% 1000 ML 1,000 ML ONE (14:53)
--- NOTE | 2016-11-25 14:54 | ERPHSYRPT ---
- History of Present Illness Time Seen by Provider: 11/25/16 14:19 Source: patient, family, EMS, old records Exam Limitations: no limitations Patient Subjective Stated Complaint: PT REPORTS BRIGHT RED BLOOD IN CATH BEGINNING YESTERDAY ET TURNING DARK RED BLOOD TODAY-STATES HE HAD BEEN OFF HIS BLOOD THINNERS LAST WEEK ET WAS STARTED ON THEM A FEW DAYS AGO-REPORTS [place]- DENIES PAIN Triage Nursing Assessment: PT PINK WARM ET [id number] RED URINE NOTED IN CATH-ABD SOFT-PT DOES NOT HAVE SENSATION-NORMAL FOR PT Physician History: patient is a hemiplegic long standing with pineda cath; he is on anticoagulants; developed bright red blood in pineda last pm; continues today with dark red blood ; some abd pain with nausea; tends to constipation; no fever; no trauma Timing/Duration: today (dark blood in pineda cath), yesterday (onset bright red bleeding in pineda), gradual onset, worse Activites at Onset: rest Quality: dullness Onset Location: periumbilical Pain Radiation: none Severity of Pain-Max: moderate Severity of Pain-Current: mild Modifying Factors: Improves With: nothing Associated Symptoms: abdominal pain, other (hematuria) Prior abdominal problems: similar symptoms Sexual intercourse history: non-contributory Allergies/Adverse Reactions: No Known Drug Allergies Allergy (Verified 11/25/16 14:35) Home Medications: Atorvastatin Calcium [Lipitor] 40 mg PO HS 05/18/16 [History] Clopidogrel Bisulfate 75 mg [PLAVIX 75 MG Tablet] 75 mg PO DAILY 05/18/16 [History] Isosorbide Mononitrate 60 mg [Imdur 60MG] 60 mg PO HS 05/18/16 [History] Metoprolol Succinate 25 mg PO BID 05/18/16 [History] Pregabalin [Lyrica 150Mg] 150 mg PO BID 05/18/16 [History] Ranitidine HCl [Zantac] 150 mg PO BID 05/18/16 [History] Testosterone Cypionate 200 mg IM UD 05/18/16 [History] Trazodone HCl 50 mg [Desyrel 50 mg] 50 mg PO HS 05/18/16 [History] Venlafaxine HCl [Effexor Xr] 150 mg PO DAILY 05/18/16 [History] Aspirin [Aspirin EC] 81 mg PO DAILY 06/19/16 [History] Bisacodyl 10 mg [Dulcolax 10 MG SUPP] 10 mg RC .EVERYOTHERDAY 06/19/16 [ History] Cranberry 500 mg PO HS 06/19/16 [History] Docusate Sodium 100 mg [Colace 100 MG] 200 mg PO TID 06/19/16 [History] Losartan/Hydrochlorothiazide [Losartan-Hctz 100-12.5 mg Tab] 1 each PO DAILY 09/28 [History] Multivitamin [Multivitamins] 1 each PO DAILY 06/19/16 [History] Nitroglycerin 0.4 mg SL Q5MIN PRN MR X 3 PRN 06/19/16 [History] [place]-3 Acid Ethyl Esters 2 tab PO BID 08/15/16 [History] Hx Tetanus, Diphtheria Vaccination/Date Given: Yes Hx Influenza Vaccination/Date Given: No Hx Pneumococcal Vaccination/Date Given: (2011) Immunizations Up to Date: Yes - Past Medical History Pertinent Past Medical History: Yes Neurological History: Paralysis, Other ENT History: No Pertinent History Cardiac History: Angina, Congestive Heart Failure, Coronary Artery Disease, High Cholesterol, Hypertension, Myocardial Infarction ([place]) Respiratory History: Bronchitis Endocrine Medical History: No Pertinent History Musculoskeletal History: Fractures GI Medical History: Colorectal Cancer, GI Bleed History: No Pertinent History Psycho-Social History: No Pertinent History Male Reproductive Disorders: No Pertinent History 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 Left leg operation times 3, COLON CA AND RESECTION IN NOV, - Social History Smoking Status: Former smoker How long have you smoked: 40 years Exposure to second hand smoke: No Alcohol Use: None Drug Use: none Patient Lives Alone: No Significant Family History: heart disease, diabetes - Review of Systems Constitutional: No Symptoms Eyes: No Symptoms Ears, Nose, & Throat: No Symptoms Respiratory: No Cough, No Dyspnea, No Wheezing Cardiac: No Chest Pain, No Palpitations, No Syncope Abdominal/Gastrointestinal: Abdominal Pain, Nausea, Constipation, No Vomiting, No Diarrhea, No Hematemesis, No Hematochezia Genitourinary Symptoms: Hematuria, Other (pineda cath) Musculoskeletal: No Symptoms Skin: Decubiti (sacrum old) Neurological: Paralysis (terry chronic), No Dizziness, No Headache Psychological: No Symptoms Endocrine: No Symptoms Hematologic/Lymphatic: Easy Bleeding, Easy Bruising Immunological/Allergic: No Symptoms - Nursing Vital Signs Nursing Vital Signs: Initial Vital Signs Temperature 97.9 F 11/25/16 14:33 Pulse Rate 80 11/25/16 14:33 Respiratory Rate 18 11/25/16 14:33 Blood Pressure 162/70 11/25/16 14:33 O2 Sat by Pulse Oximetry 96 11/25/16 14:33 Pain Scale Pain Intensity 5 - Physical Exam General Appearance: mild distress, alert, obese Eye Exam: PERRL/EOMI, eyes nml inspection, No photophobia Ears, Nose, Throat Exam: normal ENT inspection, TMs normal, pharynx normal, moist mucous membranes Neck Exam: normal inspection, non-tender, supple, full range of motion, No JVD Respiratory Exam: normal breath sounds, lungs clear, airway intact, No chest tenderness, No respiratory distress Cardiovascular Exam: regular rate/rhythm, normal heart sounds, normal peripheral pulses, capillary refill 2-3 sec, No murmur Gastrointestinal/Abdomen Exam: soft, normal bowel sounds, No mass, No guarding, No rebound, No organomegaly Rectal Exam: normal exam, hemorrhoids (rnal), decreased tone, other (small amount soft brown stool), No normal rectal tone (deminished), No black stool, No blood, No tenderness Male Genital Exam: normal genitalia (with pineda cath in palce) Back Exam: normal inspection, normal range of motion, No CVA tenderness Extremity Exam: normal inspection, normal range of motion (upper extremities shane ), paralysis (bilateral lower extremities old) Neurologic Exam: alert, oriented x 3, cooperative, dinkey operator II-XII nml as tested, normal mood/affect, sensory deficit (lowr extremities old), motor weakness ( legs old) Skin Exam: normal color, warm, dry, decubitus (sacral old), No rash SpO2 Interpretation: normal SpO2: 96 Oxygen Delivery: Room Air - Course Nursing assessment & vital signs reviewed: Yes - Radiology Exams Abdomen X-ray Interpretation: Reviewed by me, Teleradiologist Report, Negative, Other ( constipation) Ordered Tests: Active Orders 24 hr Category Date Time Status Bladder Irrigation STAT Care 11/25/16 14:30 Active IV Insertion STAT Care 11/25/16 14:30 Active KUB Stat Exams 11/25/16 14:31 Completed CBC W DIFF Stat Lab 11/25/16 15:00 Completed CMP Stat Lab 11/25/16 15:00 Completed CULTURE,URINE Stat Lab 11/25/16 15:00 Received Occult Blood,Stool Other Stat Lab 11/25/16 15:00 Completed PROTIME WITH INR Stat Lab 11/25/16 15:00 Completed PTT Stat Lab 11/25/16 15:00 Completed UA W/ MICROSCOPIC Stat Lab 11/25/16 15:00 Completed Medication Summary Generic Name Dose Route Start Last Admin Trade Name Freq PRN Reason Stop Dose Admin Sodium Chloride 1,000 mls @ 100 mls/hr 11/25/16 14:30 11/25/16 14:58 Sodium Chloride 0.9% 1000 Ml IV 12/25/16 14:29 100 mls/hr .Q10H SHAI Administration Discontinued Medications Generic Name Dose Route Start Last Admin Trade Name Freq PRN Reason Stop Dose Admin Hydromorphone HCl 1 mg 11/25/16 16:27 11/25/16 16:29 Hydromorphone 1 Mg/Ml Ampule IV 11/25/16 16:28 1 mg STAT ONE Administration Hydromorphone HCl Confirm 11/25/16 16:28 Hydromorphone 1 Mg/Ml Ampule Administered 11/25/16 16:29 Dose 1 mg .ROUTE .STK-MED ONE Ceftriaxone Sodium/Dextrose 1 g in 50 mls @ 100 mls/hr 11/25/16 15:40 15:51 Rocephin 1 Gm-D5w 50 Ml Bag IV 11/25/16 16:09 100 mls/hr STAT ONE Administration Ceftriaxone Sodium/Dextrose Confirm 11/25/16 15:50 Rocephin 1 Gm-D5w 50 Ml Bag Administered 11/25/16 15:51 Dose 1 g in 50 mls @ ud IV .STK-MED ONE Morphine Sulfate 2 mg 11/25/16 14:46 11/25/16 14:54 Morphine Sulfate 2 Mg Inj IV 11/25/16 14:47 2 mg STAT ONE Administration Morphine Sulfate Confirm 11/25/16 14:53 Morphine Sulfate 2 Mg Inj Administered 11/25/16 14:54 Dose 2 mg .ROUTE .STK-MED ONE Ondansetron HCl 4 mg 11/25/16 14:46 11/25/16 14:58 Zofran 4 Mg/2 Ml Vial IV 11/25/16 14:47 4 mg STAT ONE Administration Ondansetron HCl Confirm 11/25/16 14:52 Zofran 4 Mg/2 Ml Vial Administered 11/25/16 14:53 Dose 4 mg .ROUTE .STK-MED ONE Lab/Rad Data: Laboratory Result Diagrams 11/25/16 15:00 11/25/16 15:00 Laboratory Results 11/25/16 11/25/16 11/25/16 Range/Units 15:00 15:00 15:00 WBC (4.0-10.5) K/mm3 RBC (4.1-5.6) M/mm3 Hgb (12.5-18.0) gm/dl Hct (42-50) % MCV (78-100) fl MCH (26-32) pg MCHC (32-36) g/dl RDW (11.5-14.0) % Plt Count (150-450) K/mm3 MPV (6-9.5) fl Gran % (36.0-66.0) % Lymphocytes % (24.0-44.0) % Monocytes % (0.0-12.0) % Eosinophils % (0.00-5.0) % Basophils % (0.0-0.4) % Basophils # (0-0.4) INR 1.07 (0.8-3.0) APTT 35.0 (24.1-36.1) SECONDS Sodium (136-145) mEq/L Potassium (3.5-5.1) mEq/L Chloride (98-107) mEq/L Carbon Dioxide (21-32) mEq/L Anion Gap (5-15) MEQ/L BUN (9-20) mg/dL Creatinine (0.55-1.30) mg/dl Estimated GFR ML/MIN Glucose (70-110) MG/DL Calcium (8.5-10.1) mg/dL Total Bilirubin (0.2-1.0) mg/dL AST (15-37) U/L ALT (12-78) U/L Alkaline Phosphatase (46-116) U/L Serum Total Protein (6.4-8.2) gm/dL Albumin (3.4-5.0) g/dL Ur Collection Type CATH Urine Color RED (YELLOW) Urine Appearance BLOODY (CLEAR) Urine pH COLOR INTERFERENCE (5-6) Ur Specific [place] COLOR INTERFERENCE (1.005-1.025) Urine Protein COLOR INTERFERENCE (Negative) Urine Ketones COLOR INTERFERENCE (NEGATIVE) Urine Blood 250 (0-5) Luis M/ul Urine Nitrite COLOR INTERFERENCE (NEGATIVE) Urine Bilirubin COLOR INTERFERENCE (NEGATIVE) Urine Urobilinogen COLOR INTERFERENCE (0-1) mg/dL Ur Leukocyte Esterase COLOR INTERFERENCE (NEGATIVE) Urine Microscopic RBC >100 (0-2) /HPF Urine Microscopic WBC >100 (0-5) /HPF Urine Bacteria MANY (NEGATIVE) /HPF Urine Glucose COLOR INTERFERENCE (NEGATIVE) mg/dL Stool Occult Blood NEGATIVE (Negative) Specimen Received 11/25/16 1500 11/25/16 11/25/16 Range/Units 15:00 15:00 WBC 8.7 (4.0-10.5) K/mm3 RBC 5.96 H (4.1-5.6) M/mm3 Hgb 17.3 (12.5-18.0) gm/dl Hct 51.9 H (42-50) % MCV 87.1 (78-100) fl MCH 29.0 (26-32) pg MCHC 33.3 (32-36) g/dl RDW 17.9 H (11.5-14.0) % Plt Count 188 (150-450) K/mm3 MPV 10.0 H (6-9.5) fl Gran % 62.0 (36.0-66.0) % Lymphocytes % 22.0 L (24.0-44.0) % Monocytes % 13.7 H (0.0-12.0) % Eosinophils % 2.1 (0.00-5.0) % Basophils % 0.2 (0.0-0.4) % Basophils # 0.02 (0-0.4) INR (0.8-3.0) APTT (24.1-36.1) SECONDS Sodium 139 (136-145) mEq/L Potassium 4.5 (3.5-5.1) mEq/L Chloride 103 (98-107) mEq/L Carbon Dioxide 29.8 (21-32) mEq/L Anion Gap 11.1 (5-15) MEQ/L BUN 14 (9-20) mg/dL Creatinine 1.10 (0.55-1.30) mg/dl Estimated GFR > 60 ML/MIN Glucose 106 (70-110) MG/DL Calcium 9.3 (8.5-10.1) mg/dL Total Bilirubin 0.50 (0.2-1.0) mg/dL AST 84 H (15-37) U/L ALT 85 H (12-78) U/L Alkaline Phosphatase 164 H (46-116) U/L Serum Total Protein 7.3 (6.4-8.2) gm/dL Albumin 3.2 L (3.4-5.0) g/dL Ur Collection Type Urine Color (YELLOW) Urine Appearance (CLEAR) Urine pH (5-6) Ur Specific [place] (1.005-1.025) Urine Protein (Negative) Urine Ketones (NEGATIVE) Urine Blood (0-5) Luis M/ul Urine Nitrite (NEGATIVE) Urine Bilirubin (NEGATIVE) Urine Urobilinogen (0-1) mg/dL Ur Leukocyte Esterase (NEGATIVE) Urine Microscopic RBC (0-2) /HPF Urine Microscopic WBC (0-5) /HPF Urine Bacteria (NEGATIVE) /HPF Urine Glucose (NEGATIVE) mg/dL Stool Occult Blood (Negative) Specimen Received reviewed - Progress Progress: improved (after irrigation), re-examined (after labs and ) Progress Note: 11/25/16 15:19 urine grossly bloody;> 100 wbc; > 100 RBC ; many bact stool heme negative; patientb in xr nnow; family at bedside 11/25/16 15:20 11/25/16 15:41 after irrigation with 500 cc saline- urine welding manager red; kub constipation; no blockage; cbc ok; plt count ok 188; will start on rocephin for uti and recheck after further irrigation; family at bedside and treatment plan discussed 11/25/16 15:43 INR 1.07; liver enxz slight up renal fcx ok bs ok lytes ok 11/25/16 16:[address] Miriam Powell and discussed treatment plan; discussed with patient and family ; pain in left side recurrent addressed; instructions given; following irrigations urine cleared; ATBS given 11/25/16 16:47 instructions given Discussed with Dr.: Other (EL Powell consulted brandon Thorpe and treatment plan and dispositon concurred) Counseled pt/family regarding: lab results, diagnosis, need for follow-up - Departure Time of Disposition: 16:47 Departure Disposition: Home Clinical Impression: UTI (urinary tract infection), Abdominal pain, Hematuria Condition: Stable Critical Care Time: No Referrals: MICHELLE MATOS [Primary Care Provider] - Instructions: Hematuria, Urinary Tract Infection (UTI) Additional Instructions: clear fluids; continue meds; call Dr Thorpe' office in am with follow up report Follow-up with family doctor as directed. Call for appointment. Return if any problems. If you smoke please stop. Call or follow up with your family doctor for assistance if you need it to stop. Please wear your seatbelt when driving. Have a nice day. Thank you for allowing us to participate in your care today. :o) Dr Papa Morley Prescriptions: Cephalexin Mh 500 mg [Keflex 500 mg] 500 mg PO QID #40 capsule
[2016-11-25 15:09] LABS: BASOPHIL % 0.2 % (0.0-0.4); Eosinophil % 2.1 % (0.00-5.0); Mean Cell Volume 87.1 fl (78-100); Monocytes % 13.7 % (0.0-12.0); Platelet Count 188 K/mm3 (150-450); Red Blood Count 5.96 M/mm3 (4.1-5.6); Red Cell Distribution Width 17.9 % (11.5-14.0); White Blood Count 8.7 K/mm3 (4.0-10.5)
[2016-11-25 15:11] LABS: Collection Type CATH
[2016-11-25 15:12] LABS: Bilirubin COLOR INTERFERENCE (NEGATIVE); Blood 250 Ery/ul (0-5); COMPLETE URINE MICROSCOPIC? YES; Glucose COLOR INTERFERENCE mg/dL (NEGATIVE); Leukocyte Esterase COLOR INTERFERENCE (NEGATIVE)
[2016-11-25 15:13] LABS: ADD URINE CULTURE? YES (NO)
[2016-11-25 15:18] LABS: Bacteria MANY /HPF (NEGATIVE); WBC >100 /HPF (0-5)
[2016-11-25 15:29] LABS: INR 1.07 (0.8-3.0); PROTIME 11.9 SECONDS (8.83-12.87)
--- NOTE | 2016-11-25 15:35 | XRAY ---
Indication: Abdominal pain and bloating. Hematuria. Comparison: May 18, 2016. KUB again nonacute and nonobstructed with scattered colonic fecal debris, cholecystectomy clips, spinal stimulator device/leads, vascular calcifications, spinal degenerative spondylosis, and partially visualized lower thoracic spinal rods/pedicle screws.
[2016-11-25 15:36] LABS: ALBUMIN 3.2 g/dL (3.4-5.0); ALKALINE PHOSPHATASE 164 U/L (46-116); ANION GAP 11.1 MEQ/L (5-15); BLOOD UREA NITROGEN 14 mg/dL (9-20); CHLORIDE 103 mEq/L (98-107); Carbon Dioxide 29.8 mEq/L (21-32); Glucose 106 MG/DL (70-110); Potassium 4.5 mEq/L (3.5-5.1); SGOT/AST 84 U/L (15-37); SGPT/ALT 85 U/L (12-78); SODIUM 139 mEq/L (136-145); Total Protein 7.3 gm/dL (6.4-8.2)
[2016-11-25] MEDS ORDERED: ROCEPHIN 1 Gm-D5w 50 ml Bag** 1 G/50 ML IVPB IV ONE ×2 (15:40→15:50)
[2016-11-25] MEDS ORDERED: Hydromorphone 1 mg/ml Ampule IV ONE (16:27)
[2016-11-25] MEDS ORDERED: Hydromorphone 1 mg/ml Ampule ONE (16:28)
[2016-11-25 16:42] VITALS: PULSE 88
[2016-11-25 17:09] VITALS: BP 115/63; O2SAT 93
== END 2016-11-25 17:09 | disposition home or self-care (01) ==
LOC: ED 14:18
DX: N39.0 Urinary tract infection, site not specified (principal); R10.9 Unspecified abdominal pain; R31.9 Hematuria, unspecified; Z79.899 Other long term (current) drug therapy; Z79.01 Long term (current) use of anticoagulants; R11.0 Nausea
CPT/HCPCS: 36000; 36415; 74000; 80053; 81000; 82272; 85025; 85610; 85730; 87077; 87086; 87186; 96360; 96365; 96374; 96376; 99284; J0696; J1170; J2270; J2405

== ENCOUNTER 2017-01-24 15:53 | Emergency (ER) | payer MEDICARE, OTHER ==
--- NOTE | 2017-01-24 16:37 | ERPHSYRPT ---
- History of Present Illness Time Seen by Provider: 01/24/17 16:34 Source: patient, family Exam Limitations: no limitations Patient Subjective Stated Complaint: pt here for being unable to urinate well, has a fc but states it did not drain and daughter was unable to but put back in , he states abd is distended Triage Nursing Assessment: pt alert, arrived per wc pt is a paraplegic and cant feel from nibble line down, abd distended soft, Physician History: pt here for being unable to urinate well, has a fc but states it did not drain and daughter was unable to but put back in, he states abd is distended Timing/Duration: today Activites at Onset: none Pain Radiation: none Modifying Factors: Improves With: nothing Associated Symptoms: denies symptoms Allergies/Adverse Reactions: No Known Drug Allergies Allergy (Verified 01/24/17 16:09) Home Medications: Metoprolol Succinate 25 mg PO DAILY 05/18/16 [History] Ranitidine HCl [Zantac] 150 mg PO BID 05/18/16 [History] Testosterone Cypionate 200 mg IM UD 05/18/16 [History] Venlafaxine HCl [Effexor Xr] 150 mg PO DAILY 05/18/16 [History] Cranberry 500 mg PO HS 06/19/16 [History] Losartan/Hydrochlorothiazide [Losartan-Hctz 100-12.5 mg Tab] 25 mg PO DAILY 09/28 [History] Multivitamin [Multivitamins] 1 each PO DAILY 06/19/16 [History] Nitroglycerin 0.4 mg SL Q5MIN PRN MR X 3 PRN 06/19/16 [History] [place]-3 Acid Ethyl Esters 2 tab PO BID 08/15/16 [History] Docusate Sodium [Stool Softener] 1 mg PO UD 01/11/17 [History] Fluticasone/Vilanterol [Breo Ellipta 100-25 Mcg INH] 1 each IH UD 01/11/17 [ History] Sennosides [Senna Laxative] 25 mg PO HS 01/11/17 [History] Atorvastatin Calcium [Lipitor] 40 mg PO DAILY 01/18/17 [History] Buprenorphine HCl [Belbuca] 450 mcg BC UD 01/18/17 [History] Isosorbide Mononitrate [Isosorbide Mononitrate ER] 60 mg PO DAILY 01/18/17 [ History] Linaclotide [Linzess] 145 mcg PO DAILY 01/18/17 [History] Lubiprostone [Amitiza] 24 mcg PO DAILY 01/18/17 [History] Polyethylene Glycol 3350 [Miralax] 17 gm PO UD 01/18/17 [History] Pregabalin [Lyrica 150Mg] 150 mg PO BID 01/18/17 [History] Ranolazine 500 MG [Ranexa 500 MG] 500 mg PO BID 01/18/17 [History] Trazodone HCl 50 mg [Desyrel 50 mg] 50 mg PO HS 01/18/17 [History] Hx Tetanus, Diphtheria Vaccination/Date Given: Yes Hx Influenza Vaccination/Date Given: Yes Hx Pneumococcal Vaccination/Date Given: Yes - Past Medical History Pertinent Past Medical History: Yes Neurological History: Paralysis, Other ENT History: No Pertinent History Cardiac History: Angina, Congestive Heart Failure, Coronary Artery Disease, High Cholesterol, Hypertension Respiratory History: Bronchitis Endocrine Medical History: No Pertinent History Musculoskeletal History: Fractures GI Medical History: Colorectal Cancer, GI Bleed History: No Pertinent History Psycho-Social History: No Pertinent History Male Reproductive Disorders: No Pertinent History 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 Left leg operation times 3, COLON CA AND RESECTION IN JAN, 2016 - Social History Smoking Status: Former smoker How long have you smoked: 40 years Exposure to second hand smoke: No Alcohol Use: None Drug Use: none Patient Lives Alone: No Significant Family History: heart disease, diabetes - Review of Systems Constitutional: No Symptoms Genitourinary Symptoms: Urinary Retention - Nursing Vital Signs Nursing Vital Signs: Initial Vital Signs Pulse Rate 76 01/24/17 17:14 Respiratory Rate 16 01/24/17 17:14 Blood Pressure 155/78 01/24/17 17:14 O2 Sat by Pulse Oximetry 95 01/24/17 17:14 Pain Scale Pain Intensity 0 - Physical Exam General Appearance: no apparent distress Gastrointestinal/Abdomen Exam: soft, normal bowel sounds Male Genital Exam: normal genitalia, No scrotum tenderness (R), No scrotum tenderness (L), No testicular tenderness (R), No testicular tenderness (L), No inguinal lymphadenopathy, No prostate tenderness, No scrotal swellling Back Exam: normal inspection Oxygen Delivery: Room Air - Course Nursing assessment & vital signs reviewed: Yes Ordered Tests: Active Orders 24 hr Category Date Time Status Pineda [Catheter-[place] Pineda] STAT Care 01/24/17 16:19 Active CULTURE,URINE Stat Lab 01/24/17 16:40 Received UA W/ MICROSCOPIC Stat Lab 01/24/17 16:40 Completed Lab/Rad Data: Laboratory Results 01/24/17 Range/Units 16:40 Ur Collection Type CATH Urine Color YELLOW (YELLOW) Urine Appearance CLEAR (CLEAR) Urine pH 8.0 (5-6) Ur Specific [place] 1.005 (1.005-1.025) Urine Protein TRACE (Negative) Urine Ketones NEGATIVE (NEGATIVE) Urine Blood TRACE NON-HEM (0-5) Luis M/ul Urine Nitrite NEGATIVE (NEGATIVE) Urine Bilirubin NEGATIVE (NEGATIVE) Urine Urobilinogen NORMAL (0-1) mg/dL Ur Leukocyte Esterase 2+ (NEGATIVE) Urine Microscopic RBC 0-2 (0-2) /HPF Urine Microscopic WBC 15-25 (0-5) /HPF Ur Epithelial Cells RARE (FEW) /HPF Urine Bacteria RARE (NEGATIVE) /HPF Urine Culture Reflexed YES (NO) Urine Glucose NEGATIVE (NEGATIVE) mg/dL Specimen Received 01/24/17 1640 - Progress Progress: improved Progress Note: 01/24/17 16:35 pineda catheter replaced without any difficulty. tamiko urine flow noted Counseled pt/family regarding: diagnosis, need for follow-up - Departure Time of Disposition: 16:36 Departure Disposition: Home Clinical Impression: Paraplegia, Urinary retention Condition: Stable Critical Care Time: No Referrals: MICHELLE MATOS [Primary Care Provider] - Instructions: Urinary Retention in Men
[2017-01-24 16:47] LABS: Collection Type CATH
[2017-01-24 16:48] LABS: Bilirubin NEGATIVE (NEGATIVE); Blood TRACE NON-HEM Ery/ul (0-5); Glucose NEGATIVE (NEGATIVE); Leukocyte Esterase 2+ (NEGATIVE)
[2017-01-24 16:49] LABS: COMPLETE URINE MICROSCOPIC? YES
[2017-01-24 17:13] LABS: ADD URINE CULTURE? YES (NO); Bacteria RARE /HPF (NEGATIVE); Epithelial Cells RARE /HPF (FEW); WBC 15-25 /HPF (0-5)
[2017-01-24 17:14] VITALS: BP 155/78
[2017-01-24 17:31] VITALS: PULSE 78; O2SAT 98
== END 2017-01-24 17:34 | disposition home or self-care (01) ==
LOC: ED 15:53
DX: R33.9 Retention of urine, unspecified (principal); G82.20 Paraplegia, unspecified
CPT/HCPCS: 51702; 81000; 87077; 87086; 87186; 99283

== ENCOUNTER 2017-04-03 05:32 | Inpatient (IN) | payer MEDICARE, OTHER ==
[2017-04-03] MEDS ORDERED: Zofran 4 MG/2 ML VIAL IV ONE (06:05)
[2017-04-03] MEDS ORDERED: Sodium Chloride 0.9% 1000 ML 1,000 ML IV STA (06:05)
[2017-04-03] MEDS ORDERED: Zofran 4 MG/2 ML VIAL ONE (06:14)
[2017-04-03] MEDS ORDERED: Sodium Chloride 0.9% 1000 ML 1,000 ML ONE (06:14)
--- NOTE | 2017-04-03 06:20 | ERPHSYRPT ---
- History of Present Illness Historian: patient Exam Limitations: no limitations Patient Subjective Stated Complaint: pt states he had his suprapubic cath changed out 2 weeks ago and has been having trouble with it ever since. states it wasnt draining well tonight. pt had 350cc cloudy, strong smelling urine from pineda bag. pt states bag was empty when he went to bed and is usually very full when he wakes up in the morning. Triage Nursing Assessment: pt alert and oriented, answers questions approp. pt arrive per ambulance. total assist of 3 to transfer from ems cot to stretcher. 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 respirations nonlabored with lungs cta. suprapubic cath in place with cloudy strong smelling urine. flushed easisly with saline and drains. Timing/Duration: yesterday Activities at Onset: none Quality: cramping Abdominal Pain Onset Location: epigastric, periumbilical Pain Radiation: no radiation Severity of Pain-Max: moderate Severity of Pain-Current: moderate Modifying Factors: Improves With: nothing Associated Symptoms: denies symptoms Previous symptoms: same symptoms as today Hx Tetanus, Diphtheria Vaccination/Date Given: Yes Hx Influenza Vaccination/Date Given: Yes Hx Pneumococcal Vaccination/Date Given: Yes Immunizations Up to Date: Yes <NIOKLAY,PRERNA - Last Filed: 04/03/17 06:51> <EARL LEGER - Last Filed: 04/03/17 08:34> - History of Present Illness Time Seen by Provider: 04/03/17 06:13 Physician History: pt states he had his suprapubic cath changed out 2 weeks ago and has been having trouble with it ever since. states it wasnt draining well tonight. pt had 350cc cloudy, strong smelling urine from pineda bag. pt states bag was empty when he went to bed and is usually very full when he wakes up in the morning. Patient denies any fever, chills. c/o abdominal pain periumbilical and epigastric area (NIKOLAY,PRERNA) Allergies/Adverse Reactions: No Known Drug Allergies Allergy (Verified 04/03/17 06:00) Home Medications: Metoprolol Succinate 25 mg PO DAILY 05/18/16 [History] Ranitidine HCl [Zantac] 150 mg PO BID 05/18/16 [History] Testosterone Cypionate 200 mg IM UD 05/18/16 [History] Venlafaxine HCl [Effexor Xr] 150 mg PO DAILY 05/18/16 [History] Cranberry 500 mg PO HS 06/19/16 [History] Losartan/Hydrochlorothiazide [Losartan-Hctz 100-12.5 mg Tab] 25 mg PO DAILY 09/28 [History] Multivitamin [Multivitamins] 1 each PO DAILY 06/19/16 [History] Nitroglycerin 0.4 mg SL Q5MIN PRN MR X 3 PRN 06/19/16 [History] [place]-3 Acid Ethyl Esters 2 tab PO BID 08/15/16 [History] Docusate Sodium [Stool Softener] 1 mg PO UD 01/11/17 [History] Fluticasone/Vilanterol [Breo Ellipta 100-25 Mcg INH] 1 each IH UD 01/11/17 [ History] Sennosides [Senna Laxative] 25 mg PO HS 01/11/17 [History] Atorvastatin Calcium [Lipitor] 40 mg PO DAILY 01/18/17 [History] Buprenorphine HCl [Belbuca] 450 mcg BC UD 01/18/17 [History] Isosorbide Mononitrate [Isosorbide Mononitrate ER] 60 mg PO DAILY 01/18/17 [ History] Linaclotide [Linzess] 145 mcg PO DAILY 01/18/17 [History] Lubiprostone [Amitiza] 24 mcg PO DAILY 01/18/17 [History] Polyethylene Glycol 3350 [Miralax] 17 gm PO UD 01/18/17 [History] Pregabalin [Lyrica 150Mg] 150 mg PO BID 01/18/17 [History] Ranolazine 500 MG [Ranexa 500 MG] 500 mg PO BID 01/18/17 [History] Trazodone HCl 50 mg [Desyrel 50 mg] 50 mg PO HS 01/18/17 [History] - Review of Systems Constitutional: No Fever, No Chills Eyes: No Symptoms Ears, Nose, & Throat: No Symptoms Respiratory: No Cough, No Dyspnea Cardiac: No Chest Pain, No Edema, No Syncope Abdominal/Gastrointestinal: No Abdominal Pain, No Nausea, No Vomiting, No Diarrhea Genitourinary Symptoms: Urinary Retention Musculoskeletal: No Back Pain, No Neck Pain Skin: No Rash Neurological: Other (paraplegic, loss of feeling below neeple), No Dizziness, No Focal Weakness, No Sensory Changes Psychological: No Symptoms Endocrine: No Symptoms All Other Systems: Reviewed and Negative <NIKOLAY, Last Filed: 04/03/17 06:51> - Past Medical History Pertinent Past Medical History: Yes Neurological History: Paralysis, Other ENT History: No Pertinent History Cardiac History: Angina, Congestive Heart Failure, Coronary Artery Disease, High Cholesterol, Hypertension Respiratory History: Bronchitis Endocrine Medical History: No Pertinent History Musculoskeletal History: Fractures GI Medical History: Colorectal Cancer, GI Bleed History: No Pertinent History Psycho-Social History: No Pertinent History Male Reproductive Disorders: No Pertinent History 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 Left leg operation times 3, COLON CA AND RESECTION IN JAN, 2016 - Social History Smoking Status: Former smoker How long have you smoked: 40 years Exposure to second hand smoke: No Alcohol Use: None Drug Use: none Patient Lives Alone: No Significant Family History: heart disease, diabetes <NIKOLAY - Last Filed: 04/03/17 06:51> - Physical Exam General Appearance: mild distress Eye Exam: PERRL/EOMI Ears, Nose, Throat Exam: normal ENT inspection Neck Exam: normal inspection Respiratory Exam: normal breath sounds Cardiovascular Exam: regular rate/rhythm Gastrointestinal/Abdomen Exam: tenderness, distention Male Genitalia Exam: other (suprapubic catheter) Back Exam: normal inspection Extremity Exam: paralysis Neurologic Exam: alert, oriented x 3, cooperative, motor deficits, sensory deficit Skin Exam: normal color SpO2 Interpretation: normal SpO2: 94 Oxygen Delivery: Room Air <NIKOLAY Last Filed: 04/03/17 06:51> - Nursing Vital Signs Nursing Vital Signs: Initial Vital Signs Temperature 97.8 F 04/03/17 05:42 Pulse Rate 78 04/03/17 05:42 Respiratory Rate 18 04/03/17 05:42 Blood Pressure 151/91 04/03/17 05:42 O2 Sat by Pulse Oximetry 94 L 04/03/17 05:42 Pain Scale Pain Intensity 5 - Course Nursing assessment & vital signs reviewed: Yes - CT Exams Abdomen/Pelvis CT Interpretation: Tele-radiologist Report <PRACHI LINKSH - Last Filed: 04/03/17 06:51> - CT Exams Abdomen/Pelvis CT Interpretation: Tele-radiologist Report, Other (SUPRAPUBIC CATHETER NOTED IN THE BLADDER, THE BLADDER IS COLLAPSED, NO BOWEL OBSTRUCTION, FREE AIR, NO MUCOSAL THICKENING) <EARL LEGER - Last Filed: 04/03/17 08:34> Ordered Tests: Active Orders 24 hr Category Date Time Status Up With Assistance ROUTINE Activity 04/03/17 08:22 Ordered Admission/Status Order ROUTINE Care 04/03/17 08:23 Ordered Call Admit Doctor for Orders ON ADMISSION Care 04/03/17 08:24 Ordered Code Status Order ROUTINE Care 04/03/17 08:23 Ordered EKG-ER Only STAT Care 04/03/17 06:05 Active IV Care Q6H Care 04/03/17 08:23 Ordered IV Insertion STAT Care 04/03/17 06:05 Active Intake and Output Q12H Care 04/03/17 08:22 Ordered Vital Signs Q4H Care 04/03/17 08:22 Ordered Consult Surgery ROUTINE Cons 04/03/17 08:22 Ordered NPO except Meds Diet 04/03/17 08:25 Ordered ABDOMEN AND PELVIS W/0 CONTRAS [CT] Stat Exams 04/03/17 06:07 Taken AMYLASE Stat Lab 04/03/17 06:10 Completed BLOOD CULTURE Stat Lab 04/03/17 06:15 Received CBC W DIFF Stat Lab 04/03/17 06:10 Completed CMP Stat Lab 04/03/17 06:10 Completed CULTURE,URINE Stat Lab 04/03/17 07:00 Received LIPASE Stat Lab 04/03/17 06:10 Completed TROPONIN Stat Lab 04/03/17 06:10 Completed UA W/ MICROSCOPIC Stat Lab 04/03/17 07:00 Completed Oxygen NASAL CANNULA 2 lpm RT 04/03/17 08:22 Ordered Transfer Order Routine Transfer 04/03/17 Ordered Medication Summary Generic Name Dose Route Start Last Admin Trade Name Freq PRN Reason Stop Dose Admin Levofloxacin/Dextrose 500 mg in 100 mls @ 100 mls/hr 01/20/18 07:39 04/03/17 07:56 Levofloxacin 500mg/100ml D5w IV 04/03/17 08:38 100 mls/hr STAT STA Administration Discontinued Medications Generic Name Dose Route Start Last Admin Trade Name Vern PRN Reason Stop Dose Admin Fentanyl Citrate 50 mcg 04/03/17 06:48 04/03/17 06:54 Sublimaze 100 Mcg/2 Ml IV 04/03/17 06:49 50 mcg STAT ONE Administration Fentanyl Citrate Confirm 04/03/17 06:52 Sublimaze 100 Mcg/2 Ml Administered 04/03/17 06:53 Dose 100 mcg .ROUTE .STK-MED ONE Fentanyl Citrate 50 mcg 04/03/17 07:27 04/03/17 07:55 Sublimaze 100 Mcg/2 Ml IV 04/03/17 07:28 50 mcg STAT ONE Administration Fentanyl Citrate Confirm 04/03/17 07:52 Sublimaze 100 Mcg/2 Ml Administered 04/03/17 07:53 Dose 100 mcg .ROUTE .STK-MED ONE Sodium Chloride 1,000 mls @ 999 mls/hr 04/03/17 06:05 04/03/17 06:20 Sodium Chloride 0.9% 1000 Ml IV 04/03/17 07:05 999 mls/hr .Q1H1M STA Administration Sodium Chloride Confirm 04/03/17 06:14 Sodium Chloride 0.9% 1000 Ml Administered 04/03/17 06:15 Dose 1,000 mls @ ud .ROUTE .STK-MED ONE Levofloxacin/Dextrose Confirm 04/03/17 07:52 Levofloxacin 500mg/100ml D5w Administered 04/03/17 07:53 Dose 500 mg in 100 mls @ ud IV .STK-MED ONE Ondansetron HCl 4 mg 04/03/17 06:05 04/03/17 06:20 Zofran 4 Mg/2 Ml Vial IV 04/03/17 06:06 4 mg STAT ONE Administration Ondansetron HCl Confirm 04/03/17 06:14 Zofran 4 Mg/2 Ml Vial Administered 04/03/17 06:15 Dose 4 mg .ROUTE .STK-MED ONE Lab/Rad Data: Laboratory Result Diagrams 04/03/17 06:10 04/03/17 06:10 Laboratory Results 04/03/17 04/03/17 04/03/17 Range/Units 07:00 06:10 06:10 WBC (4.0-10.5) K/mm3 RBC (4.1-5.6) M/mm3 Hgb (12.5-18.0) gm/dl Hct (42-50) % MCV (78-100) fl MCH (26-32) pg MCHC (32-36) g/dl RDW (11.5-14.0) % Plt Count (150-450) K/mm3 MPV (6-9.5) fl Gran % (36.0-66.0) % Lymphocytes % (24.0-44.0) % Monocytes % (0.0-12.0) % Eosinophils % (0.00-5.0) % Basophils % (0.0-0.4) % Basophils # (0-0.4) Sodium 140 (136-145) mEq/L Potassium 3.7 (3.5-5.1) mEq/L Chloride 105 (98-107) mEq/L Carbon Dioxide 26.6 (21-32) mEq/L Anion Gap 11.7 (5-15) MEQ/L BUN 14 (9-20) mg/dL Creatinine 1.02 (0.55-1.30) mg/dl Estimated GFR > 60 ML/MIN Glucose 116 H (70-110) MG/DL Calcium 8.6 (8.5-10.1) mg/dL Total Bilirubin 0.30 (0.2-1.0) mg/dL AST 17 (15-37) U/L ALT 22 (12-78) U/L Alkaline Phosphatase 99 (46-116) U/L Troponin I < 0.017 (0.000-0.056) ng/ml Serum Total Protein 6.7 (6.4-8.2) gm/dL Albumin 3.3 L (3.4-5.0) g/dL Amylase 92 (25-115) U/L Lipase 297 (73-393) U/L Ur Collection Type VOID Urine Color YELLOW (YELLOW) Urine Appearance HAZY (CLEAR) Urine pH 5.0 (5-6) Ur Specific [place] 1.020 (1.005-1.025) Urine Protein TRACE (Negative) Urine Ketones NEGATIVE (NEGATIVE) Urine Blood 50 (0-5) Luis M/ul Urine Nitrite POSITIVE (NEGATIVE) Urine Bilirubin NEGATIVE (NEGATIVE) Urine Urobilinogen NORMAL (0-1) mg/dL Ur Leukocyte Esterase 2+ (NEGATIVE) Urine Microscopic RBC 10-15 (0-2) /HPF Urine Microscopic WBC >100 (0-5) /HPF Ur Epithelial Cells FEW (FEW) /HPF Urine Bacteria PACKED (NEGATIVE) /HPF Urine Culture Reflexed YES (NO) Urine Glucose NEGATIVE (NEGATIVE) mg/dL Specimen Received 04/03/2017 0700 04/03/17 Range/Units 06:10 WBC 6.1 (4.0-10.5) K/mm3 RBC 5.44 (4.1-5.6) M/mm3 Hgb 16.0 (12.5-18.0) gm/dl Hct 48.5 (42-50) % MCV 89.2 (78-100) fl MCH 29.4 (26-32) pg MCHC 33.0 (32-36) g/dl RDW 15.1 H (11.5-14.0) % Plt Count 193 (150-450) K/mm3 MPV 10.1 H (6-9.5) fl Gran % 57.5 (36.0-66.0) % Lymphocytes % 26.6 (24.0-44.0) % Monocytes % 11.3 (0.0-12.0) % Eosinophils % 4.1 (0.00-5.0) % Basophils % 0.5 (0.0-0.4) % Basophils # 0.03 (0-0.4) Sodium (136-145) mEq/L Potassium (3.5-5.1) mEq/L Chloride (98-107) mEq/L Carbon Dioxide (21-32) mEq/L Anion Gap (5-15) MEQ/L BUN (9-20) mg/dL Creatinine (0.55-1.30) mg/dl Estimated GFR ML/MIN Glucose (70-110) MG/DL Calcium (8.5-10.1) mg/dL Total Bilirubin (0.2-1.0) mg/dL AST (15-37) U/L ALT (12-78) U/L Alkaline Phosphatase (46-116) U/L Troponin I (0.000-0.056) ng/ml Serum Total Protein (6.4-8.2) gm/dL Albumin (3.4-5.0) g/dL Amylase (25-115) U/L Lipase (73-393) U/L Ur Collection Type Urine Color (YELLOW) Urine Appearance (CLEAR) Urine pH (5-6) Ur Specific [place] (1.005-1.025) Urine Protein (Negative) Urine Ketones (NEGATIVE) Urine Blood (0-5) Luis M/ul Urine Nitrite (NEGATIVE) Urine Bilirubin (NEGATIVE) Urine Urobilinogen (0-1) mg/dL Ur Leukocyte Esterase (NEGATIVE) Urine Microscopic RBC (0-2) /HPF Urine Microscopic WBC (0-5) /HPF Ur Epithelial Cells (FEW) /HPF Urine Bacteria (NEGATIVE) /HPF Urine Culture Reflexed (NO) Urine Glucose (NEGATIVE) mg/dL Specimen Received <PRERNA LINK - Last Filed: 04/03/17 06:51> - Progress Discussed with : Vita (DISCUSSED WITH DR SANDHU AT 0800 FOR ADMISSION OBSERVATION) <EARL LEGER - Last Filed: 04/03/17 08:34> - Progress Progress Note: 04/03/17 08:05-AFTER 2 SETS OF BLOOD CULTURES, ADMINISTERED IV LEVAQUIN 500MG, FOR UTI WBC>100, BACTERIA-PACKED (EARL LEGER) <PRERNA LINK - Last Filed: 04/03/17 06:51> - Departure Time of Disposition: 08:25 Departure Disposition: Observation Critical Care Time: No <EARL LEGER - Last Filed: 04/03/17 08:34> - Departure Clinical Impression: ABDOMINAL PAIN, URINARY TRACT INFECTION Condition: Stable Referrals: MICHELLE MATOS [Primary Care Provider] -
[2017-04-03 06:28] LABS: BASOPHIL % 0.5 % (0.0-0.4); Basophil (Absolute #) 0.03 (0-0.4); Eosinophil % 4.1 % (0.00-5.0); Eosinophil (Absolute #) 0.25 (0-0.5); Granulocyte Absolute (ANC) 3.51 (1.4-6.9); Granulocytes % 57.5 % (36.0-66.0); Hematocrit 48.5 % (42-50); Lymphocyte (Absolute #) 1.62 (1.0-4.6); Lymphocytes % 26.6 % (24.0-44.0); Mean Cell Volume 89.2 fl (78-100); Mean Corpuscular Hemoglobin 29.4 pg (26-32); Mean Platelet Volume 10.1 fl (6-9.5); Monocyte (Absolute #) 0.69 (0.0-1.3); Monocytes % 11.3 % (0.0-12.0); Platelet Count 193 K/mm3 (150-450); Red Blood Count 5.44 M/mm3 (4.1-5.6); Red Cell Distribution Width 15.1 % (11.5-14.0); White Blood Count 6.1 K/mm3 (4.0-10.5)
[2017-04-03 06:43] LABS: ALBUMIN 3.3 g/dL (3.4-5.0); ALKALINE PHOSPHATASE 99 U/L (46-116); AMYLASE 92 U/L (25-115); ANION GAP 11.7 MEQ/L (5-15); BLOOD UREA NITROGEN 14 mg/dL (9-20); CHLORIDE 105 mEq/L (98-107); Calcium 8.6 mg/dL (8.5-10.1); Carbon Dioxide 26.6 mEq/L (21-32); Creatinine 1 1.02 mg/dl (0.55-1.30); EST GLOMERULAR FILTRATION RATE > 60 ML/MIN; Glucose 116 MG/DL (70-110); LIPASE 297 U/L (73-393); Potassium 3.7 mEq/L (3.5-5.1); SGOT/AST 17 U/L (15-37); SGPT/ALT 22 U/L (12-78); SODIUM 140 mEq/L (136-145); Total Protein 6.7 gm/dL (6.4-8.2)
[2017-04-03] MEDS ORDERED: SUBLIMAZE 100 MCG/2 ML IV ONE ×2 (06:48→07:27)
[2017-04-03] MEDS ORDERED: SUBLIMAZE 100 MCG/2 ML ONE ×2 (06:52→07:52)
[2017-04-03 07:22] LABS: Appearance HAZY (CLEAR); Bilirubin NEGATIVE (NEGATIVE); Blood 50 Ery/ul (0-5); Glucose NEGATIVE (NEGATIVE); Ketones NEGATIVE (NEGATIVE); Leukocyte Esterase 2+ (NEGATIVE); Nitrite POSITIVE (NEGATIVE); Protein,Urine Dip TRACE (Negative); Urobilinogen NORMAL mg/dL (0-1)
[2017-04-03 07:34] LABS: Bacteria PACKED /HPF (NEGATIVE); Epithelial Cells FEW /HPF (FEW); WBC >100 /HPF (0-5)
[2017-04-03] MEDS ORDERED: Levofloxacin 500MG/100ML D5W 500 MG/100 ML BAG IV STA (07:39)
[2017-04-03] MEDS ORDERED: Levofloxacin 500MG/100ML D5W 500 MG/100 ML BAG IV ONE (07:52)
[2017-04-03] MEDS ORDERED: MORPHINE SULFATE 4 MG INJ IV PRN (08:22)
[2017-04-03] MEDS ORDERED: TYLENOL 325 MG PO PRN (08:22)
[2017-04-03] MEDS ORDERED: Zofran 4 MG/2 ML VIAL IV PRN (08:29)
--- NOTE | 2017-04-03 08:31 | XRAY ---
Indication: Abdominal pain. Paraplegic. Multiple contiguous axial images obtained through the abdomen and pelvis without contrast as ordered. Comparison: September 13, 2016. Again spinal hardware produces beam artifact degrading images of the lower chest/upper abdomen. Stable left lower back spinal stimulator device and leads. Lung bases again demonstrates minimal bibasilar dependent atelectasis. No infiltrate, consolidation, or effusion. Heart is not enlarged. Noncontrasted stomach and bowel loops appear nonobstructed. There remains mild/moderate colonic fecal debris throughout. Stable sigmoid resection with intact anastomosis. New suprapubic catheter empties the urinary bladder. No free fluid/air. Stable periaortic nodes, small fatty right inguinal hernia, cholecystectomy, and appendectomy. Remaining liver, pancreas, spleen, adrenal glands, kidneys, and ureters unremarkable for noncontrast exam. There remains mild scattered aortoiliac calcifications without AAA. Osseous structures intact with stable multilevel spinal degenerative changes and remote-appearing T11/L1 endplate fractures. Impression: 1. Again fecal stasis without obstruction. Stable sigmoid resection without complications. 2. New suprapubic catheter in situ with empty urinary bladder. 3. No acute intra-abdominal/pelvic abnormalities on this noncontrast exam. 4. Stable periaortic nodes, fatty right inguinal hernia, thoracolumbar fusion surgery, and remote T11/L1 endplate fractures. Comment: Preliminary interpretation was made by C. No critical discrepancy. CTDI 19.33
[2017-04-03] MEDS: Sodium Chloride 0.9% 1000 ML 1,000 ML IV SCH (09:44)
[2017-04-03] MEDS ORDERED: Imdur 60MG PO SCH (10:00)
[2017-04-03] MEDS: Cozaar 50 MG PO SCH (11:51)
[2017-04-03] MEDS: PLAVIX 75 MG Tablet PO SCH (11:52)
[2017-04-03] MEDS: Toprol-Xl 25MG Tablets PO SCH (11:52)
[2017-04-03] MEDS ORDERED: DILAUDID 2 MG INJECTION IV PRN (13:14)
--- NOTE | 2017-04-03 13:25 | PCM.HP ---
History of Present Illness - Chief Complaint Chief Complaint: UTI, abd pain History of Present Illness: is a 71 year old male pt of Dr. Bc Yoder with paraplegia orginating at T10 who came to ER early this morning complaining of 1 day of increasing abdominal pain. The pain is generalized but sometimes worse in LUQ and radiating to the back. Constant and severe, 10/10, kept him up all night last night. He was found to have a UTI and treated with IV levaquin. CT abd/pelvis without contrast with fecal stasis, no obstruction, nothing acute. This morning pt said he is feeling "extremely terrible" and much worse than at admission. Morphine is not helping the pain at all. At home his has to routinely help disimpact him. She says he has been more constipated lately; had an enema yesterday which he routinely rotates with stool softeners the next day. He had a bowel resection in 2010 for Stage II colon cancer (no radiation or chemotherapy done) and his last colonoscopy was in Jan [address] Paige and was nl. notes he always has a fairly poor bowel prep. Pt had a suprapubic catheter placed about 8 weeks ago. The urine has alternated between dark and strong smelling and looking nl. The catheter flushed in ER and the bladder was noted to be deflated on CT scan. Pt chronically on Belbuca (buprenorphine). - Review of Systems Constitutional: No Fever Abdominal/Gastrointestinal: Abdominal Pain, Nausea, Constipation, No Vomiting, No Diarrhea Genitourinary Symptoms: Other Musculoskeletal: Back Pain Neurological: Other (paraplegia) Psychological: No Anxiety, No Depression, No Suicidal Ideations All Other Systems: Reviewed and Negative Medications & Allergies Home Medications: Home Medication List Metoprolol Succinate 25 mg PO DAILY 05/18/16 [History Confirmed 04/03/17] Ranitidine HCl [Zantac] 150 mg PO BID 05/18/16 [History Confirmed 04/03/17] Testosterone Cypionate 200 mg IM UD 05/18/16 [History Confirmed 04/03/17] Venlafaxine HCl [Effexor Xr] 150 mg PO DAILY 05/18/16 [History Confirmed ] Cranberry 15,000 mg PO HS 06/19/16 [History Confirmed 04/03/17] Multivitamin [Multivitamins] 1 each PO DAILY 06/19/16 [History Confirmed ] Nitroglycerin 0.4 mg SL Q5MIN PRN MR X 3 PRN 06/19/16 [History Confirmed ] Docusate Sodium [Stool Softener] 200 mg PO TID 01/11/17 [History Confirmed 04/03] Fluticasone/Vilanterol [Breo Ellipta 100-25 Mcg INH] 1 each IH UD 01/11/17 [ History Confirmed 04/03/17] Aspirin [Aspirin EC] 81 mg PO DAILY #0 01/18/17 [Rx Confirmed 04/03/17] Atorvastatin Calcium [Lipitor] 40 mg PO DAILY 01/18/17 [History Confirmed ] Buprenorphine HCl [Belbuca] 600 mcg BC UD 01/18/17 [History Confirmed 04/03/17] Clopidogrel Bisulfate 75 mg [PLAVIX 75 MG Tablet] 75 mg PO DAILY #0 [Rx Confirmed 04/03/17] Isosorbide Mononitrate [Isosorbide Mononitrate ER] 60 mg PO 1800 01/18/17 [ History Confirmed 04/03/17] Linaclotide [Linzess] 145 mcg PO DAILY 01/18/17 [History Confirmed 04/03/17] Polyethylene Glycol 3350 [Miralax] 17 gm PO DAILY 01/18/17 [History Confirmed ] Pregabalin [Lyrica 150Mg] 150 mg PO BID 01/18/17 [History Confirmed 04/03/17] Ranolazine 500 MG [Ranexa 500 MG] 500 mg PO BID 01/18/17 [History Confirmed 04/03/17] Trazodone HCl 50 mg [Desyrel 50 mg] 50 mg PO HS 01/18/17 [History Confirmed 04/03/17] Losartan Potassium 50 mg PO DAILY 04/03/17 [History Confirmed 04/03/17] Sennosides 17.2 mg PO HS 04/03/17 [History Confirmed 04/03/17] Allergies/Adverse Reactions: Allergies Allergy/AdvReac Type Severity Reaction Status Date / Time No Known Drug Allergies Allergy Verified 04/03/17 06:00 - Past Medical History Past Medical History: Yes Neurological History: Paralysis, Other ENT History: No Pertinent History Cardiac History: Angina, Congestive Heart Failure, Coronary Artery Disease, High Cholesterol, Hypertension Respiratory History: Bronchitis Endocrine Medical History: No Pertinent History Musculoskelatal History: Fractures GI Medical History: Colorectal Cancer, GI Bleed History: No Pertinent History Pyscho-Social History: No Pertinent History Male Reproductive Disorders: No Pertinent History 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 Left leg operation times 3, COLON CA AND RESECTION IN JAN, 2016 - Social History Smoking Status: Former smoker How long have you smoked: 40 years Exposure to second hand smoke: No Alcohol: Occasionally Drug Use: none Significant Family History: heart disease, diabetes - Physical Exam Vital Signs: Vital Signs - 24 hr Temp Pulse Resp BP Pulse Ox 04/03/17 13:05 90 160/78 04/03/17 11:19 97.9 F 90 20 166/95 95 04/03/17 09:47 97.8 F 90 18 153/90 96 04/03/17 09:14 97.8 F 90 18 153/90 96 04/03/17 08:04 70 16 156/74 96 04/03/17 06:56 71 16 141/76 95 04/03/17 06:51 94 L 04/03/17 05:42 97.8 F 78 18 151/91 94 L General Appearance: moderate distress, anxiety Neurologic Exam: oriented x 3, cooperative Eye Exam: post op pupil defect (L) Ears, Nose, Throat Exam: moist mucous membranes Respiratory Exam: normal breath sounds, lungs clear, No crackles/rales, No rhonchi, No wheezing Cardiovascular Exam: regular rate/rhythm, normal heart sounds, No murmur Gastrointestinal/Abdomen Exam: soft, normal bowel sounds, tenderness ( generalized, very mild ttp), distention (generalized), No mass, No guarding, No rebound Extremity Exam: other (2 approx 1cm eschars on anterior L lower leg), No pedal edema, No swelling Skin Exam: normal color, warm, dry, No rash Results - Radiology Impressions Radiology Exams & Impressions: Radiology Procedures Category Date Time Status ABDOMEN AND PELVIS W CONTRAST [CT] Stat Exams 04/03/17 13:12 Ordered - Other Procedures and Tests Respiratory Therapy 04/03/17 08:22 Oxygen NASAL CANNULA 2 lpm 04/03/17 10:17 RT Screen per Nursing Assess ONCE Assessment/Plan (1) Abdominal pain Current Visit: No Status: Acute Qualifiers: Abdominal location: generalized Qualified Code(s): R10.84 - Generalized abdominal pain Assessment & Plan: with pain out of proportion to exam. Whether this is due to his paraplegia and dysfunctional nerves I'm not sure, but my concern is for ischemic bowel. CT abd /pelvis with contrast ordered stat - I spoke to Luc in radiology at 1:29 pm and told her the exam is stat - she is with an ER pt but will be down to get this pt BOB. IV contrast only. Code(s): R10.9 - UNSPECIFIED ABDOMINAL PAIN (2) UTI (urinary tract infection) Current Visit: No Status: Acute Qualifiers: Urinary tract infection type: acute cystitis Hematuria presence: with hematuria Qualified Code(s): N30.01 - Acute cystitis with hematuria Assessment & Plan: On IV levaquin. Code(s): N39.0 - URINARY TRACT INFECTION, SITE NOT SPECIFIED (3) CAD (coronary artery disease) Current Visit: No Status: Chronic Qualifiers: Coronary Disease-Associated Artery/Lesion type: bypass graft [place] vs. transplanted heart: [place] heart Associated angina: without angina Qualified Code(s): I25.810 - Atherosclerosis of coronary artery bypass graft(s) without angina pectoris Code(s): I25.10 - ATHSCL HEART DISEASE OF [place] CORONARY ARTERY W/O ANG PCTRS (4) Chronic pain syndrome Current Visit: No Status: Chronic Assessment & Plan: Holding the belbuca for now. increasing pain meds from morphine to dilaudid 1 mg q4h prn. Code(s): G89.4 - CHRONIC PAIN SYNDROME (5) Paraplegia Current Visit: No Status: Chronic Code(s): G82.20 - PARAPLEGIA, UNSPECIFIED
[2017-04-03] MEDS ORDERED: Nitrostat 0.4 MG Tablet SL PRN (15:11)
[2017-04-03] MEDS ORDERED: APRESOLINE 20 MG/ML INJ IV ONE (15:40)
[2017-04-03] MEDS: Imdur 60MG PO SCH (17:20)
[2017-04-03] MEDS: DILAUDID 2 MG INJECTION IV PRN ×2 (17:32→21:17)
--- NOTE | 2017-04-03 22:53 | XRAY ---
Indication: Abdominal pain. Paraplegic. Multiple contiguous axial images obtained through the abdomen and pelvis using 80 cc Isovue 370 contrast only. Comparison: Noncontrast exam taken earlier in the day. Again spinal hardware produces beam artifact degrading images of the lower chest/upper abdomen. Stable left lower back spinal stimulator device and leads. Lung bases demonstrates stable bibasilar dependent atelectasis. Heart is not enlarged. Noncontrasted stomach and bowel loops again appears nonobstructed with mild colonic fecal debris throughout. Stable sigmoid resection with intact anastomosis and suprapubic catheter. No free fluid/air. Stable periaortic nodes, small fatty right inguinal hernia, cholecystectomy, and appendectomy. Remaining liver, pancreas, spleen, adrenal glands, kidneys, and ureters unremarkable. There remains mild scattered aortoiliac calcifications without AAA. Osseous structures intact with stable multilevel spinal degenerative changes and remote-appearing T11/L1 endplate fractures. Impression: 1. Stable fecal stasis without obstruction. 2. No new or acute intra-abdominal/pelvic abnormalities on this contrast exam. 3. Stable periaortic nodes, fatty right inguinal hernia, thoracolumbar fusion surgery, and remote T11/L1 endplate fractures. Comment: Preliminary interpretation was made by [facility]. No critical discrepancy. CTDI 22.32
[2017-04-04] MEDS: Sodium Chloride 0.9% 1000 ML 1,000 ML IV SCH ×2 (00:07→14:41)
[2017-04-04] MEDS: DILAUDID 2 MG INJECTION IV PRN ×3 (00:28→10:51)
[2017-04-04] MEDS ORDERED: Hydromorphone 1 mg/ml Ampule IV ONE (07:42)
[2017-04-04] MEDS ORDERED: DILAUDID 2 MG INJECTION IV ONE (08:00)
[2017-04-04] MEDS: Cozaar 50 MG PO SCH (09:24)
[2017-04-04] MEDS: PLAVIX 75 MG Tablet PO SCH (09:24)
[2017-04-04] MEDS: Toprol-Xl 25MG Tablets PO SCH (09:24)
[2017-04-04] MEDS ORDERED: Levofloxacin 500MG/100ML D5W 500 MG/100 ML BAG IV SCH (10:00)
[2017-04-04] MEDS: DILAUDID 1 MG/1ML PCA IV PRN ×2 (11:07→19:08)
[2017-04-04] MEDS ORDERED: Dulcolax 10 MG SUPP PR PRN (12:01)
[2017-04-04] MEDS ORDERED: CITROMA 296 ML PO ONE (12:02)
--- NOTE | 2017-04-04 12:31 | PCM.NOTE ---
Date and Time: 04/04/17 1226 Subjective Assessment: Was called this morning with pt in worsening abd pain 12/22 generalized - Abd XR nl bowel gas pattern. I spoke to Dr. Noe Rainey, he had evaluated pt yesterday and thought related to urinary issues or to constipation. I spoke with the urologist donor support technician for Dr. Thorpe, he does not think there could be any issues with the catheter as it is functioning well and the bladder was collapsed. We did discuss transfer to [facility]; Dr. Apple, hospitalist, and the urologist and me. It was decided that pt should just stay here and have his constipation treated and go from there. - pain is now much better, 08/22, with another IV dilaudid dose and pt placed on dilaudid AEROSPACE ENGINEER at standard dose. - Review of Systems Constitutional: No Fever Abdominal/Gastrointestinal: Abdominal Pain Objective Exam General Appearance: moderate distress, alert, anxiety Neurologic Exam: oriented x 3, cooperative Skin Exam: normal color, warm, dry, No rash Respiratory Exam: normal breath sounds, lungs clear, No crackles/rales, No rhonchi, No wheezing Cardiovascular Exam: regular rate/rhythm, normal heart sounds, No murmur Gastrointestinal/Abdomen Exam: soft, tenderness (diffusely), other (hypoactive BS but present), No mass, No guarding, No rebound Extremity Exam: No pedal edema, No swelling OBJECTIVE DATA Vital Signs: Vital Signs - 24 hr Temp Pulse Resp BP Pulse Ox 04/04/17 11:39 98.1 F 74 20 187/94 95 04/04/17 07:31 97.9 F 83 20 164/73 96 04/04/17 04:54 97.8 F 70 20 161/89 96 04/04/17 00:27 97.8 F 72 20 130/62 90 L 04/04/17 00:13 97.8 F 72 20 130/62 94 L 04/03/17 21:07 86 20 93 L 04/03/17 21:00 98.6 F 78 20 116/67 92 L 04/03/17 20:00 98.6 F 78 20 116/67 92 L 04/03/17 16:36 176/80 04/03/17 15:48 98 F 66 20 187/99 97 04/03/17 13:05 90 160/78 Oxygen-Last 24 hours O2 Percentage 2 Liters = 28% O2 Percentage 3 Liters = 32% Pain Assessment - Last Documented Pain Intensity 10 Pain Scale Used 0-10 Pain Scale Intake and Output: Intake & Output 04/02/17 04/03/17 04/04/17 04/05/17 11:59 11:59 11:59 11:59 Intake Total 0 1282 Output Total 2900 Balance 0 -1618 Weight 95.8 kg Radiology Exams: Radiology Procedures Category Date Time Status ABDOMEN AND PELVIS W CONTRAST [CT] Stat Exams 04/03/17 13:12 Completed OBSTR/ACUTE ABDOMEN SERIES Stat Exams 04/04/17 07:50 Taken Multi-Disciplinary Progress Notes: Multi-Disciplinary Progress Notes 04/04/17 02:54 Respiratory Note by Carlos Arzola PT STATED THAT HE DID NOT LIKE OUR CPAP AND MASK AFTER USING IT FOR A CPL HRS. HE HAD REMOVED IT AND HIS SPO2 WAS ALARMING ON TELE SO I PLACED PT ON 2LPM O2. HIS SATS WENT FROM 89% ON RA TO 93% ON 2LPM. HE STATED THAT HIS WILL BRING HIS PT OWNED CPAP IN LATER TODAY AND HE WILL USE IT. Initialized on 04/04/17 02:54 - END OF NOTE 04/03/17 13:17 Case Management Note by Klaudia Campbell DISCHARGE PLAN REVIEWED WITH PT AND SPOUSE/LAYCAREGIVER. BOTH STATE THAT THEY DO NOT NEED ANY MORE DME OR HELP AT HOME, SEE "AT HOME CARE PLAN". QURESHI PAPERS FROM [employer] EXPLAINED, SIGNED AND COPY GIVEN TO PATIENT WITH ORIGINAL IN PAPER CHART. PLAN TO RETURN HOME TO PRE EPISODIC LEVEL OF FUNCTION. WILL CONTINUE TO MONITOR FOR ALL D/C NEEDS. Initialized on 04/03/17 13:17 - END OF NOTE Assessment/Plan (1) Abdominal pain Current Visit: No Status: Acute Qualifiers: Abdominal location: generalized Qualified Code(s): R10.84 - Generalized abdominal pain Assessment & Plan: Likely due to constipation, last BM 4d ago, has not been getting his stool softeners since he was here with abd pain of unknown etiology. I've spoken with surgery and urology donor support technician. So, will start with suppository, then enema, then bowel prep as needed. Currently on dilaudid environmental services attendant but will back off of that as results are seen. Code(s): R10.9 - UNSPECIFIED ABDOMINAL PAIN (2) UTI (urinary tract infection) Current Visit: No Status: Acute Qualifiers: Urinary tract infection type: acute cystitis Hematuria presence: with hematuria Qualified Code(s): N30.01 - Acute cystitis with hematuria Assessment & Plan: On IV levaquin. Culture pending. Code(s): N39.0 - URINARY TRACT INFECTION, SITE NOT SPECIFIED (3) CAD (coronary artery disease) Current Visit: No Status: Chronic Qualifiers: Coronary Disease-Associated Artery/Lesion type: bypass graft [place] vs. transplanted heart: [place] heart Associated angina: without angina Qualified Code(s): I25.810 - Atherosclerosis of coronary artery bypass graft(s) without angina pectoris Code(s): I25.10 - ATHSCL HEART DISEASE OF [place] CORONARY ARTERY W/O ANG PCTRS (4) Chronic pain syndrome Current Visit: No Status: Chronic Assessment & Plan: We have held his Belbuca while here. He states it's not helping much anyway although initially it helped quite a bit. Code(s): G89.4 - CHRONIC PAIN SYNDROME (5) Paraplegia Current Visit: No Status: Chronic Code(s): G82.20 - PARAPLEGIA, UNSPECIFIED
[2017-04-04] MEDS: Imdur 60MG PO SCH (17:50)
[2017-04-04] MEDS: BENADRYL 25 MG CAPSULE PO PRN (18:32)
--- NOTE | 2017-04-04 20:12 | XRAY ---
Indication: Upper abdominal pain. Comparison: CT abdomen/pelvis 1 day earlier. 2 views of the abdomen demonstrates nonspecific nonobstructed bowel gas pattern with cholecystectomy clips. No free air. No organomegaly or pathologic visceral calcifications. Mild scattered vascular calcifications. Osseous structures demonstrates mild degenerative spondylosis, spinal stimulator device/leads, and thoracolumbar pedicle screws with Elder rods. Single PA chest demonstrates right base infiltrate/atelectasis. Left lung clear. Heart is not enlarged. Impression: 1. Nonacute nonobstructed abdomen. 2. Right lung base infiltrate/atelectasis. Correlate clinically. Comment: Preliminary interpretation was made by [facility]. No discrepancy.
[2017-04-05] MEDS: Sodium Chloride 0.9% 1000 ML 1,000 ML IV SCH ×2 (03:22→18:18)
--- NOTE | 2017-04-05 08:58 | CONS ---
CONSULT DATE 04/03/2017 REASON FOR CONSULT: Abdominal pain. HISTORY: The patient was normal until 36 hours previously. He felt acute left lower quadrant pain. He has had a little bit of this in the past but never this bad. He had a sigmoid resection for stage II cancer by Dr. Caballero back in 2015. He had endoscopic examination in January with Dr. Caballero that was satisfactory. He is paraplegic. He has had urinary issues. He did require suprapubic catheter with the first one placed in October. He was having replacement in December but he flat lined. He subsequently had replacement in February. His Dinero is totally clear and generous at this time although on CT scan it does show a thickened bladder wall and some residual urine. He states he has a little more residual urine when he is up. It seems to be conditional in nature. His bowel movements have been satisfactory. PHYSICAL EXAMINATION: ABDOMEN: His abdomen is actually fairly soft. There are no peritoneal signs. There was just a slight fullness. LAB DATA AND TESTS: The CT scan is fairly unremarkable. IMPRESSION: At this time I am not sure of the exact nature. He has had a recent colonoscopic examination. We will review his films but I am not aware of what actually caused him more pain. I am a little concerned that this could be indirectly urinary somehow. Dr. Caballero will also be down here Wednesday morning and if the patient is still here I suspect he will also have thoughts concerning this patient.
[2017-04-05] MEDS: LYRICA 150MG PO SCH ×2 (09:50→22:25)
[2017-04-05] MEDS: Invanz 1 GM*** 1 G in Sodium Chloride 100ML MINI-BAG PLUS 100 ML IV SCH (09:50)
[2017-04-05] MEDS: Cozaar 50 MG PO SCH (09:50)
[2017-04-05] MEDS: Effexor XR 75 MG PO SCH (09:50)
[2017-04-05] MEDS: Toprol-Xl 25MG Tablets PO SCH (09:50)
[2017-04-05] MEDS: PLAVIX 75 MG Tablet PO SCH (09:50)
[2017-04-05] MEDS: BENADRYL 25 MG CAPSULE PO PRN ×2 (11:11→23:58)
[2017-04-05] MEDS: Imdur 60MG PO SCH (18:35)
[2017-04-05] MEDS: DILAUDID 1 MG/1ML PCA IV PRN (19:06)
--- NOTE | 2017-04-05 19:24 | PCM.NOTE ---
Date and Time: 04/05/171917 Subjective Assessment: initially was feeling better this am after the bowel prep he took his home linzess this am however he began having severe pains and distension and sensitivity to light touch of the abdomen after eating. He began using his field marketer pump again He had not had any food this am just liquids and was advanced to regular diet at lunch but again had severe pains. Objective Exam General Appearance: no apparent distress, alert Neurologic Exam: alert, oriented x 3, cooperative, normal mood/affect, motor deficits, sensory deficit Skin Exam: normal color, warm, dry Eye Exam: PERRL, EOMI, eyes nml inspection Ears, Nose, Throat Exam: normal ENT inspection, pharynx normal, moist mucous membranes Neck Exam: normal inspection, non-tender, supple, full range of motion Respiratory Exam: normal breath sounds, lungs clear, No respiratory distress Cardiovascular Exam: regular rate/rhythm, normal heart sounds Gastrointestinal/Abdomen Exam: soft, normal bowel sounds, tenderness (left upper quadrant), No distention, No mass, No guarding, No ecchymosis Extremity Exam: normal inspection, normal range of motion Back Exam: normal inspection, normal range of motion, No CVA tenderness, No vertebral tenderness Male Genitalia Exam: other (chronic catheter wtih clear yellow urine) Rectal Exam: deferred OBJECTIVE DATA Vital Signs: Vital Signs - 24 hr Temp Pulse Resp BP Pulse Ox 04/05/17 19:06 94 L 04/05/17 16:16 98.2 F 81 20 180/84 95 04/05/17 16:00 95 04/05/17 12:25 97.8 F 90 20 180/88 97 04/05/17 12:00 97 04/05/17 11:54 93 L 04/05/17 07:40 94 L 04/05/17 06:57 98 F 80 20 171/84 97 04/05/17 04:00 98.0 F 80 17 162/77 94 L 04/05/17 00:00 97.9 F 68 20 118/67 94 L 04/04/17 20:00 97.8 F 62 18 178/85 92 L Oxygen-Last 24 hours O2 Percentage 2 Liters = 28% Pain Assessment - Last Documented Pain Intensity 2 Pain Scale Used [facility] Intake and Output: Intake & Output 04/03/17 04/04/17 04/05/17 04/06/17 11:59 11:59 11:59 11:59 Intake Total 1953 720 Output Total 2961 1450 Balance -1012 -730 Multi-Disciplinary Progress Notes: Multi-Disciplinary Progress Notes 04/05/17 09:45 (created 04/05/17 14:23) Case Management Note by Kristy Mclaughlin DISCHARGE PLAN REVIEWED, CONTINUES TO PLAN TO RETURN HOME WITH TO PRE EPISODIC LEVEL OF FNX. DECLINED ADDNL NEEDS. WILL FOLLOW FOR ALL DC NEEDS. Initialized on 04/05/17 14:23 - END OF NOTE Assessment/Plan (1) UTI (urinary tract infection) Current Visit: Yes Status: Acute Qualifiers: Hematuria presence: with hematuria Assessment & Plan: pseudomonas catheter associated was resistent to the antibiotic will try ertapenem in order to help facilitate outpatient therapy with the once daily dosing He continues to have severe pain and is currently still in need of field marketer to control his pain will continue to do the bowel regimen we discussed stop the linzess will restart his effexor and lyrica Code(s): N39.0 - URINARY TRACT INFECTION, SITE NOT SPECIFIED (2) Abdominal pain Current Visit: Yes Status: Acute Qualifiers: Abdominal location: generalized Qualified Code(s): R10.84 - Generalized abdominal pain Code(s): R10.9 - UNSPECIFIED ABDOMINAL PAIN (3) CAD (coronary artery disease) Current Visit: Yes Status: Chronic Qualifiers: Coronary Disease-Associated Artery/Lesion type: bypass graft [place] vs. transplanted heart: [place] heart Associated angina: without angina Qualified Code(s): I25.810 - Atherosclerosis of coronary artery bypass graft(s) without angina pectoris Code(s): I25.10 - ATHSCL HEART DISEASE OF [place] CORONARY ARTERY W/O ANG PCTRS (4) Paraplegia Current Visit: Yes Status: Chronic Code(s): G82.20 - PARAPLEGIA, UNSPECIFIED (5) Neurogenic bladder Current Visit: Yes Status: Chronic Code(s): N31.9 - NEUROMUSCULAR DYSFUNCTION OF [place], UNSPECIFIED
[2017-04-06] MEDS: Sodium Chloride 0.9% 1000 ML 1,000 ML IV SCH (07:10)
--- NOTE | 2017-04-06 08:21 | PCM.NOTE ---
Date and Time: 04/06/17817 Subjective Assessment: still with severe left sided pain and causing increased muscle spasms bowels still trying to empty from the laxatives the pain is moving to the epigastric area as well very sensitive on the abdomen decreased appetite no vomiting. Objective Exam General Appearance: no apparent distress, alert Neurologic Exam: alert, oriented x 3, cooperative, normal mood/affect, No sensation nml (T10 down decreased hypersenstivity left side from mid abdomen to nipple line), No motor deficits (paralysis) Skin Exam: normal color, warm, dry Eye Exam: PERRL, EOMI, eyes nml inspection Ears, Nose, Throat Exam: normal ENT inspection, pharynx normal, moist mucous membranes Neck Exam: normal inspection, non-tender, supple Respiratory Exam: normal breath sounds, lungs clear, No respiratory distress Cardiovascular Exam: regular rate/rhythm, normal heart sounds Gastrointestinal/Abdomen Exam: soft, normal bowel sounds, tenderness ( epigastric and left upper qudrant), No mass Extremity Exam: normal inspection, normal range of motion Back Exam: normal inspection, normal range of motion, No CVA tenderness, No vertebral tenderness Male Genitalia Exam: other (Dinero with clear yellow urine) Rectal Exam: deferred OBJECTIVE DATA Vital Signs: Vital Signs - 24 hr Temp Pulse Resp BP Pulse Ox 04/06/17 07:22 97.6 F 86 20 154/80 86 L 04/06/17 06:00 94 L 04/06/17 04:00 97.9 F 73 20 138/73 93 L 04/06/17 00:00 98.4 F 76 18 130/68 92 L 04/05/17 20:00 98.3 F 83 18 180/90 95 04/05/17 19:06 94 L 04/05/17 16:16 98.2 F 81 20 180/84 95 04/05/17 16:00 95 04/05/17 12:25 97.8 F 90 20 180/88 97 04/05/17 12:00 97 04/05/17 11:54 93 L Oxygen-Last 24 hours O2 Percentage 2 Liters = 28% Pain Assessment - Last Documented Pain Intensity 0 Pain Scale [facility] Intake and Output: Intake & Output 04/03/17 04/04/17 04/05/17 04/06/17 11:59 11:59 11:59 11:59 Intake Total 0514 2172 Output Total 3963 0207 Balance -1012 727 Multi-Disciplinary Progress Notes: Multi-Disciplinary Progress Notes 04/05/17 09:45 (created 04/05/17 14:23) Case Management Note by Kristy Mclaughlin DISCHARGE PLAN REVIEWED, CONTINUES TO PLAN TO RETURN HOME WITH TO PRE EPISODIC LEVEL OF FNX. DECLINED ADDNL NEEDS. WILL FOLLOW FOR ALL DC NEEDS. Initialized on 04/05/17 14:23 - END OF NOTE Assessment/Plan (1) UTI (urinary tract infection) Current Visit: Yes Status: Acute Qualifiers: Hematuria presence: with hematuria Assessment & Plan: with pseudomonas on ertapenem will treat for 7 days iv with the abdominal pains till uncontrolled using the labor relations analyst still will add carafate ac,hs continue off the linzess continue with the lyrica and effexor restarted yesterday Code(s): N39.0 - URINARY TRACT INFECTION, SITE NOT SPECIFIED (2) Abdominal pain Current Visit: Yes Status: Acute Qualifiers: Abdominal location: generalized Qualified Code(s): R10.84 - Generalized abdominal pain Code(s): R10.9 - UNSPECIFIED ABDOMINAL PAIN (3) CAD (coronary artery disease) Current Visit: Yes Status: Chronic Qualifiers: Coronary Disease-Associated Artery/Lesion type: bypass graft [place] vs. transplanted heart: [place] heart Associated angina: without angina Qualified Code(s): I25.810 - Atherosclerosis of coronary artery bypass graft(s) without angina pectoris Code(s): I25.10 - ATHSCL HEART DISEASE OF [place] CORONARY ARTERY W/O ANG PCTRS (4) Paraplegia Current Visit: Yes Status: Chronic Code(s): G82.20 - PARAPLEGIA, UNSPECIFIED (5) Neurogenic bladder Current Visit: Yes Status: Chronic Code(s): N31.9 - NEUROMUSCULAR DYSFUNCTION OF BLAD[place], UNSPECIFIED
[2017-04-06] MEDS: LYRICA 150MG PO SCH ×2 (09:50→22:22)
[2017-04-06] MEDS: PLAVIX 75 MG Tablet PO SCH (09:50)
[2017-04-06] MEDS: Toprol-Xl 25MG Tablets PO SCH (09:50)
[2017-04-06] MEDS: VENELEX OINTMENT TP SCH ×3 (09:50→22:25)
[2017-04-06] MEDS: Cozaar 50 MG PO SCH (09:50)
[2017-04-06] MEDS: Effexor XR 75 MG PO SCH (09:50)
[2017-04-06] MEDS: Invanz 1 GM*** 1 G in Sodium Chloride 100ML MINI-BAG PLUS 100 ML IV SCH (09:53)
[2017-04-06] MEDS: DILAUDID 1 MG/1ML PCA IV PRN (10:00)
[2017-04-06] MEDS: Carafate SUSPENSION 1000 MG/10 ML PO SCH ×3 (11:40→22:22)
[2017-04-06] MEDS ORDERED: Toprol-Xl 25MG Tablets PO ONE (13:55)
[2017-04-06] MEDS ORDERED: APRESOLINE 20 MG/ML INJ IV PRN (13:57)
[2017-04-06] MEDS: Imdur 60MG PO SCH (16:54)
[2017-04-06] MEDS ORDERED: Sodium Chloride 0.9% 500 ML 500 ML IV ONE (22:08)
[2017-04-06] MEDS ORDERED: Sodium Chloride 0.9% 500 ML 500 ML IV SCH (22:15)
[2017-04-06] MEDS: BENADRYL 25 MG CAPSULE PO PRN (22:22)
[2017-04-07] MEDS: Carafate SUSPENSION 1000 MG/10 ML PO SCH (07:41)
--- NOTE | 2017-04-07 08:26 | PCM.DS ---
Discharge Summary Date of Admission: 04/04/17 12:31 Date of Discharge: 04/07/2017 Admitting Physician: LUIS ANTONIO SANDHU Primary Care Provider: MICHELLE MATOS Allergies Allergies No Known Drug Allergies Allergy (Verified 04/03/17 06:00) Hospital Summary - Hospital Course Hospital Course: He presented with intractable bilateral upper quadrant abdominal pains. Sugery was consulted he had CT of the abdomen with and without contrast and was found to only have some evidence of fecal stasis. He also had UTI and was initially started on levaquin but it grew 2 organisms both resistant to levaquin and was changed to ertapenem for the pseudomonas he received 3 doses in the hospital. His pain was improved on Wednesday am but a few hours after restarting his linzess on his own the pain returned. We started carafate and he needed dilaudid gambreler helper to control the pain. He skipped his linzess on 04/06 and 04/07 and his pain improved. He felt the carafate helped it as well. He has hypersenitivity to touch on the upper abdomen as well but it appears to cross the midline. 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 He previously had an injection that lasted about 18 months he thinks. - Vitals & Intake/Output Vital Signs: Vital Signs Temperature 97.6 F 04/07/17 07:29 Pulse Rate 82 04/07/17 07:29 Respiratory Rate 20 04/07/17 07:29 Blood Pressure 129/66 04/07/17 07:29 O2 Sat by Pulse Oximetry 92 L 04/07/17 07:29 Oxygen-Last Documented O2 Percentage 2 Liters = 28% Intake & Output: Intake & Output 04/04/17 04/05/17 04/06/17 04/07/17 11:59 11:59 11:59 11:59 Intake Total 5953 4762 2901 Output Total 2404 9521 6251 Balance -1012 1087 -299 - Lab Result Diagrams: 04/03/17 06:10 04/03/17 06:10 - Procedures and Test Procedures and Tests throughout Hospitalization: Therapy Orders & Screens 04/07/17 07:30 EKG ROUTINE Comment: c/o chest pain Diagnosis: UTI, abd pain, failed outpt Discharge Exam General Appearance: no apparent distress, alert Neurologic Exam: alert, oriented x 3, cooperative, normal mood/affect, nml cerebellar function, motor deficits, sensory deficit (t10 paralaysis) Skin Exam: normal color, warm, dry Eye Exam: PERRL, EOMI, eyes nml inspection Ears, Nose, Throat Exam: normal ENT inspection, pharynx normal, moist mucous membranes Neck Exam: normal inspection, non-tender, supple, full range of motion Respiratory Exam: normal breath sounds, lungs clear, No respiratory distress Cardiovascular Exam: regular rate/rhythm, normal heart sounds Gastrointestinal/Abdomen Exam: soft, No tenderness, No mass Extremity Exam: normal inspection, normal range of motion Back Exam: normal inspection, normal range of motion, No CVA tenderness, No vertebral tenderness Male Genitalia Exam: deferred Rectal Exam: deferred Final Diagnosis/Problem List - Final Discharge Diagnosis/Problem (1) UTI (urinary tract infection) Status: Acute (2) Abdominal pain Status: Acute (3) CAD (coronary artery disease) Status: Chronic (4) Paraplegia Status: Chronic (5) Neurogenic bladder Status: Chronic - Discharge Discharge Date: 04/07/17 Disposition: Home, Self-Care Condition: Stable Prescriptions: New Sucralfate 1000 mg/10 ml [Carafate SUSPENSION 1000 MG/10 ML] 1,000 mg PO ACHS 14 Days #560 ml Ertapenem Sodium 1 gm [Invanz 1 GM] 1 g IV Q24H10 4 Days #4 vial Metoprolol Succinate 50 mg [Toprol Xl 50 MG] 50 mg PO DAILY #30 tablet.sa Continue Venlafaxine HCl [Effexor Xr] 150 mg PO DAILY Testosterone Cypionate 200 mg IM UD Ranitidine HCl [Zantac] 150 mg PO BID Nitroglycerin 0.4 mg SL Q5MIN PRN MR X 3 PRN PRN Reason: Chest Pain Cran[place] 15,000 mg PO HS Multivitamin [Multivitamins] 1 each PO DAILY Docusate Sodium [Stool Softener] 200 mg PO TID Fluticasone/Vilanterol [Breo Ellipta 100-25 Mcg INH] 1 each IH UD Ranolazine 500 MG [Ranexa 500 MG] 500 mg PO BID Polyethylene Glycol 3350 [Miralax] 17 gm PO DAILY Trazodone HCl 50 mg [Desyrel 50 mg] 50 mg PO HS Buprenorphine HCl [Belbuca] 600 mcg BC UD Isosorbide Mononitrate [Isosorbide Mononitrate ER] 60 mg PO 1800 Pregabalin [Lyrica 150Mg] 150 mg PO BID Atorvastatin Calcium [Lipitor] 40 mg PO DAILY Aspirin [Aspirin EC] 81 mg PO DAILY #0 Clopidogrel Bisulfate 75 mg [PLAVIX 75 MG Tablet] 75 mg PO DAILY #0 Sennosides 17.2 mg PO HS Losartan Potassium 50 mg PO DAILY Discontinued Metoprolol Succinate 25 mg PO DAILY Linaclotide [Linzess] 145 mcg PO DAILY Instructions: Urinary Tract Infections in Adults, Acute Abdomen (Belly Pain) Additional Instructions: P[facility] COME TO [facility] TOMORROW FOR YOUR INVANZ INFUSION. YOUR APPT TIME IS 2:30 PM. YOU WILL NEED TO ARRIVE AT APPROXIMATELY 2:15 PM TO REGISTER THE FIRST TIME. YOU WILL COMPLETE FOUR MORE DAYS. FOLLOWUP WITH DR. MATOS SCHEDULED. Follow up with: ADAMARIS BROOKS MD [NON-STAFF PHY W/O PRIVILEGES] - 1 Week MICHELLE MATOS [Primary Care Provider] - 04/14/17 2:15 pm Forms: Discharge Instructions
[2017-04-07] MEDS: PLAVIX 75 MG Tablet PO SCH (08:46)
[2017-04-07] MEDS: LYRICA 150MG PO SCH (08:46)
[2017-04-07] MEDS: Cozaar 50 MG PO SCH (08:47)
[2017-04-07] MEDS: Effexor XR 75 MG PO SCH (08:47)
[2017-04-07] MEDS: Invanz 1 GM*** 1 G in Sodium Chloride 100ML MINI-BAG PLUS 100 ML IV SCH (08:55)
[2017-04-07] MEDS: VENELEX OINTMENT TP SCH (09:53)
[2017-04-07] MEDS ORDERED: Toprol Xl 50 MG PO SCH (10:00)
[2017-04-07 11:21] VITALS: BP 142/64; PULSE 72; O2SAT 91
== END 2017-04-07 11:40 | disposition home or self-care (01) | DRG 690 ==
LOC: ED 05:32 → MED SURG 08:59 → OBSVTOIN 04-04 12:31
PROVIDERS: ADMIT Family Medicine; ATTEND Family Medicine
DX: R10.13 Epigastric pain (principal); N39.0 Urinary tract infection, site not specified; I25.810 Atherosclerosis of coronary artery bypass graft(s) without angina pectoris; G82.20 Paraplegia, unspecified; R10.10 Upper abdominal pain, unspecified; R10.32 Left lower quadrant pain; I50.9 Heart failure, unspecified; Z87.891 Personal history of nicotine dependence; I10 Essential (primary) hypertension; N31.9 Neuromuscular dysfunction of bladder, unspecified; E78.00 Pure hypercholesterolemia, unspecified; G89.4 Chronic pain syndrome; Z79.899 Other long term (current) drug therapy; Z85.038 Personal history of other malignant neoplasm of large intestine; Z90.49 Acquired absence of other specified parts of digestive tract
CPT/HCPCS: 36000; 36415; 74022; 74176; 74177; 80053; 81000; 82150; 83690; 84484; 85025; 87040; 87077; 87086; 87186; 93005; 93268; 94660; 94760; 96360; 96365; 96374; 96375; 96376; 99285; G0378; J0360; J1170; J1335; J1956; J2270; J2405; J3010; A9270-GY

== ENCOUNTER → 2017-05-16 | Emergency (ER) | payer MEDICARE, OTHER ==
[~2017-05-16] MED LIST: MORPHINE SULFATE 4 MG INJ IV ONE; MORPHINE SULFATE 4 MG INJ ONE; ROCEPHIN 1 Gm-D5w 50 ml Bag** 1 G/50 ML IVPB IV ONE; ROCEPHIN 1 Gm-D5w 50 ml Bag** 1 G/50 ML IVPB IV STA; Sodium Chloride 0.9% 1000 ML 1,000 ML IV SCH; Zofran 4 MG/2 ML VIAL IV ONE; Zofran 4 MG/2 ML VIAL ONE
[2017-05-16 19:18] LABS: BASOPHIL % 0.3 % (0.0-0.4); Basophil (Absolute #) 0.03 (0-0.4); Eosinophil % 5.1 % (0.00-5.0); Eosinophil (Absolute #) 0.46 (0-0.5); Granulocyte Absolute (ANC) 5.33 (1.4-6.9); Granulocytes % 58.7 % (36.0-66.0); Hematocrit 49.7 % (42-50); Hemoglobin 16.5 gm/dl (12.5-18.0); Lymphocyte (Absolute #) 1.96 (1.0-4.6); Lymphocytes % 21.6 % (24.0-44.0); Mean Cell Volume 88.1 fl (78-100); Mean Corpuscular Hgb Concent. 33.2 g/dl (32-36); Mean Platelet Volume 10.1 fl (6-9.5); Monocytes % 14.3 % (0.0-12.0); Platelet Count 225 K/mm3 (150-450); Red Blood Count 5.64 M/mm3 (4.1-5.6); Red Cell Distribution Width 14.9 % (11.5-14.0); White Blood Count 9.1 K/mm3 (4.0-10.5)
[2017-05-16 19:19] LABS: INR 1.05 (0.8-3.0)
[2017-05-16 19:20] LABS: Mean Corpuscular Hemoglobin 29.2 pg (26-32)
[2017-05-16 19:21] LABS: ANION GAP 9.6 MEQ/L (5-15); BLOOD UREA NITROGEN 13 mg/dL (9-20); CHLORIDE 102 mEq/L (98-107); Creatinine 1 0.84 mg/dl (0.55-1.30); Glucose 107 MG/DL (70-110); Potassium 4.1 mEq/L (3.5-5.1); SODIUM 138 mEq/L (136-145)
[2017-05-16 20:38] LABS: ABO TYPING O; Antibody Screen NEGATIVE (NEGATIVE); RH TYPING POSITIVE
--- NOTE | 2017-05-16 20:42 | ERPHSYRPT ---
- History of Present Illness Time Seen by Provider: 05/16/17 19:00 Source: patient Exam Limitations: clinical condition Patient Subjective Stated Complaint: pt and report pt had some bleeding around his cath this morning-reports as day went on pt began bleeding in his urine and penis-denies injury Triage Nursing Assessment: pt pink warm and [id number] easy and nonlabored- pt unable to say rather palp is painful-abd soft Physician History: PATIENT WITH A HISTORY OF SUPRPUBIC CATHETER X 1 YEAR, HIS OF LOWER EXTREMITY PARAPLEGIA, COMPLAINS OF GROSS BLEEDING FROM SUPRAPUBIC HASSAN CATHETER AND BLOOD FROM HIS PENIS . DENIES HISTORY OF TRAUMA OR INJURY, DIZZINESS OR WEAKNESS. Timing/Duration: today (THIS AM) Activites at Onset: none Onset Location: suprapubic Pain Radiation: none Severity of Pain-Max: none Severity of Pain-Current: none Modifying Factors: Improves With: nothing Associated Symptoms: denies symptoms Prior abdominal problems: none Sexual intercourse history: non-contributory Allergies/Adverse Reactions: No Known Drug Allergies Allergy (Verified 05/16/17 18:45) Home Medications: Ranitidine HCl [Zantac] 150 mg PO BID 05/18/16 [History] Testosterone Cypionate 200 mg IM UD 05/18/16 [History] Venlafaxine HCl [Effexor Xr] 150 mg PO DAILY 05/18/16 [History] Cranberry 15,000 mg PO HS 06/19/16 [History] Multivitamin [Multivitamins] 1 each PO DAILY 06/19/16 [History] Nitroglycerin 0.4 mg SL Q5MIN PRN MR X 3 PRN 06/19/16 [History] Docusate Sodium [Stool Softener] 200 mg PO TID 01/11/17 [History] Fluticasone/Vilanterol [Breo Ellipta 100-25 Mcg INH] 1 each IH UD 01/11/17 [ History] Atorvastatin Calcium [Lipitor] 40 mg PO DAILY 01/18/17 [History] Buprenorphine HCl [Belbuca] 600 mcg BC UD 01/18/17 [History] Isosorbide Mononitrate [Isosorbide Mononitrate ER] 60 mg PO 1800 01/18/17 [ History] Polyethylene Glycol 3350 [Miralax] 17 gm PO DAILY 01/18/17 [History] Pregabalin [Lyrica 150Mg] 150 mg PO BID 01/18/17 [History] Ranolazine 500 MG [Ranexa 500 MG] 500 mg PO BID 01/18/17 [History] Trazodone HCl 50 mg [Desyrel 50 mg] 50 mg PO HS 01/18/17 [History] Losartan Potassium 50 mg PO DAILY 04/03/17 [History] Sennosides 17.2 mg PO HS 04/03/17 [History] Hx Tetanus, Diphtheria Vaccination/Date Given: Yes Hx Influenza Vaccination/Date Given: Yes Hx Pneumococcal Vaccination/Date Given: Yes Immunizations Up to Date: Yes - Past Medical History Pertinent Past Medical History: Yes Neurological History: Paralysis, Other ENT History: No Pertinent History Cardiac History: Angina, Congestive Heart Failure, Coronary Artery Disease, High Cholesterol, Hypertension Respiratory History: Bronchitis Endocrine Medical History: No Pertinent History Musculoskeletal History: Fractures GI Medical History: Colorectal Cancer, GI Bleed History: No Pertinent History Psycho-Social History: No Pertinent History Male Reproductive Disorders: No Pertinent History 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 Left leg operation times 3, COLON CA AND RESECTION IN JAN, 2016 - Social History Smoking Status: Former smoker How long have you smoked: 40 years Exposure to second hand smoke: No Alcohol Use: None Drug Use: none Patient Lives Alone: No Significant Family History: heart disease, diabetes - Review of Systems Constitutional: No Fever, No Chills Eyes: No Symptoms Ears, Nose, & Throat: No Symptoms Respiratory: No Symptoms, No Cough, No Dyspnea Cardiac: No Symptoms, No Chest Pain, No Edema, No Syncope Abdominal/Gastrointestinal: No Abdominal Pain, No Nausea, No Vomiting, No Diarrhea Genitourinary Symptoms: Hematuria (GROSS), No Dysuria Musculoskeletal: No Symptoms, No Back Pain, No Neck Pain Skin: No Symptoms, No Rash Neurological: No Dizziness, No Focal Weakness, No Sensory Changes Psychological: No Symptoms Endocrine: No Symptoms All Other Systems: Reviewed and Negative - Nursing Vital Signs Nursing Vital Signs: Initial Vital Signs Temperature 98.7 F 03/04/18 18:41 Pulse Rate 83 05/16/17 18:41 Respiratory Rate 18 05/16/17 18:41 Blood Pressure 150/88 05/16/17 18:41 O2 Sat by Pulse Oximetry 96 05/16/17 18:41 Pain Scale Pain Intensity 3 - Physical Exam General Appearance: no apparent distress, alert Eye Exam: PERRL/EOMI Ears, Nose, Throat Exam: pharynx normal, moist mucous membranes Neck Exam: normal inspection, supple Respiratory Exam: normal breath sounds, lungs clear Cardiovascular Exam: regular rate/rhythm, No edema Gastrointestinal/Abdomen Exam: soft, No tenderness Male Genital Exam: normal genitalia, bleeding (GROSS HEMATURIA FROM PENILE URETHA, AND SUPRAPUBIC CATHETER) Back Exam: normal inspection, No CVA tenderness Extremity Exam: normal inspection, normal range of motion, No pedal edema Neurologic Exam: alert, oriented x 3, cooperative, sensation nml, other (T-10 PARAPLEGIA), No motor deficits Skin Exam: normal color, warm, dry, No rash SpO2: 97 Oxygen Delivery: Room Air Ordered Tests: Active Orders 24 hr Category Date Time Status BLOOD CULTURE Stat Lab 05/16/17 Ordered BMP Stat Lab 05/16/17 18:45 Completed CBC W DIFF Stat Lab 05/16/17 18:45 Completed CULTURE,URINE Stat Lab 05/16/17 20:00 Received PROTIME WITH INR Stat Lab 05/16/17 18:45 Completed UA W/ MICROSCOPIC Stat Lab 05/16/17 20:00 Completed Medication Summary Generic Name Dose Route Start Last Admin Trade Name Freq PRN Reason Stop Dose Admin Sodium Chloride 1,000 mls @ 200 mls/hr 05/16/17 19:15 05/16/17 19:31 Sodium Chloride 0.9% 1000 Ml IV 06/15/17 19:14 200 mls/hr .Q5H SHAI Administration Ceftriaxone Sodium/Dextrose 1 g in 50 mls @ 100 mls/hr 05/16/17 21:58 22:01 Rocephin 1 Gm-D5w 50 Ml Bag IV 05/16/17 22:27 100 mls/hr STAT STA Administration Discontinued Medications Generic Name Dose Route Start Last Admin Trade Name Freq PRN Reason Stop Dose Admin Ceftriaxone Sodium/Dextrose Confirm 05/16/17 21:59 Rocephin 1 Gm-D5w 50 Ml Bag Administered 05/16/17 22:00 Dose 1 g in 50 mls @ ud IV .STK-MED ONE Morphine Sulfate 4 mg 05/16/17 21:01 05/16/17 21:04 Morphine Sulfate 4 Mg Inj IV 05/16/17 21:02 4 mg STAT ONE Administration Morphine Sulfate Confirm 05/16/17 21:00 Morphine Sulfate 4 Mg Inj Administered 05/16/17 21:01 Dose 4 mg .ROUTE .STK-MED ONE Ondansetron HCl 4 mg 05/16/17 21:01 05/16/17 21:04 Zofran 4 Mg/2 Ml Vial IV 05/16/17 21:02 4 mg STAT ONE Administration Ondansetron HCl Confirm 05/16/17 21:00 Zofran 4 Mg/2 Ml Vial Administered 05/16/17 21:01 Dose 4 mg .ROUTE .STK-MED ONE Lab/Rad Data: Laboratory Result Diagrams 05/16/17 18:45 05/16/17 18:45 Laboratory Results 05/16/17 05/16/17 05/16/17 Range/Units 20:00 18:45 18:45 WBC (4.0-10.5) K/mm3 RBC (4.1-5.6) M/mm3 Hgb (12.5-18.0) gm/dl Hct (42-50) % MCV (78-100) fl MCH (26-32) pg MCHC (32-36) g/dl RDW (11.5-14.0) % Plt Count (150-450) K/mm3 MPV (6-9.5) fl Gran % (36.0-66.0) % Lymphocytes % (24.0-44.0) % Monocytes % (0.0-12.0) % Eosinophils % (0.00-5.0) % Basophils % (0.0-0.4) % Basophils # (0-0.4) INR 1.05 (0.8-3.0) Sodium (136-145) mEq/L Potassium (3.5-5.1) mEq/L Chloride (98-107) mEq/L Carbon Dioxide (21-32) mEq/L Anion Gap (5-15) MEQ/L BUN (9-20) mg/dL Creatinine (0.55-1.30) mg/dl Estimated GFR ML/MIN Glucose (70-110) MG/DL Calcium (8.5-10.1) mg/dL Ur Collection Type CATH Urine Color RED (YELLOW) Urine Appearance BLOODY (CLEAR) Urine pH COLOR INTERFERENCE (5-6) Ur Specific [place] COLOR INTERFERENCE (1.005-1.025) Urine Protein COLOR INTERFERENCE (Negative) Urine Ketones COLOR INTERFERENCE (NEGATIVE) Urine Blood COLOR INTERFERENCE (0-5) Luis M/ul Urine Nitrite COLOR INTERFERENCE (NEGATIVE) Urine Bilirubin COLOR INTERFERENCE (NEGATIVE) Urine Urobilinogen COLOR INTERFERENCE (0-1) mg/dL Ur Leukocyte Esterase COLOR INTERFERENCE (NEGATIVE) Urine Microscopic RBC >100 (0-2) /HPF Urine Microscopic WBC 25-50 (0-5) /HPF Urine Bacteria MODERATE (NEGATIVE) /HPF Urine Culture Reflexed YES (NO) Urine Glucose COLOR INTERFERENCE (NEGATIVE) mg/dL Specimen Received 05/16/171999 ABO Group O Rh Factor POSITIVE Antibody Screen NEGATIVE (NEGATIVE) 05/16/17 05/16/17 Range/Units 18:45 18:45 WBC 9.1 (4.0-10.5) K/mm3 RBC 5.64 H (4.1-5.6) M/mm3 Hgb 16.5 (12.5-18.0) gm/dl Hct 49.7 (42-50) % MCV 88.1 (78-100) fl MCH 29.2 (26-32) pg MCHC 33.2 (32-36) g/dl RDW 14.9 H (11.5-14.0) % Plt Count 225 (150-450) K/mm3 MPV 10.1 H (6-9.5) fl Gran % 58.7 (36.0-66.0) % Lymphocytes % 21.6 L (24.0-44.0) % Monocytes % 14.3 H (0.0-12.0) % Eosinophils % 5.1 H (0.00-5.0) % Basophils % 0.3 (0.0-0.4) % Basophils # 0.03 (0-0.4) INR (0.8-3.0) Sodium 138 (136-145) mEq/L Potassium 4.1 (3.5-5.1) mEq/L Chloride 102 (98-107) mEq/L Carbon Dioxide 30.0 (21-32) mEq/L Anion Gap 9.6 (5-15) MEQ/L BUN 13 (9-20) mg/dL Creatinine 0.84 (0.55-1.30) mg/dl Estimated GFR > 60 ML/MIN Glucose 107 (70-110) MG/DL Calcium 9.0 (8.5-10.1) mg/dL Ur Collection Type Urine Color (YELLOW) Urine Appearance (CLEAR) Urine pH (5-6) Ur Specific [place] (1.005-1.025) Urine Protein (Negative) Urine Ketones (NEGATIVE) Urine Blood (0-5) Luis M/ul Urine Nitrite (NEGATIVE) Urine Bilirubin (NEGATIVE) Urine Urobilinogen (0-1) mg/dL Ur Leukocyte Esterase (NEGATIVE) Urine Microscopic RBC (0-2) /HPF Urine Microscopic WBC (0-5) /HPF Urine Bacteria (NEGATIVE) /HPF Urine Culture Reflexed (NO) Urine Glucose (NEGATIVE) mg/dL Specimen Received ABO Group Rh Factor Antibody Screen (NEGATIVE) - Progress Progress Note: 05/16/17 20:44 IV NORMAL SALINE 200ML/HR, ROCEPHIN 1GM IVPB 05/16/17 22:00 Discussed with : Other (DISCUSSED WITH DR CASTRO 2014 AT [facility] ER ACCEPTS TRANSFER VIA [facility]) - Departure Time of Disposition: 22:13 Departure Disposition: Transfer Clinical Impression: SUPRAPUBIC HASSAN CATHETER, ACUTE HEMORRHAGIC CYSTITIS Condition: Stable Critical Care Time: No Referrals: MICHELLE MATOS [Primary Care Provider] -
[2017-05-16 21:28] LABS: Appearance BLOODY (CLEAR); Leukocyte Esterase COLOR INTERFERENCE (NEGATIVE); Nitrite COLOR INTERFERENCE (NEGATIVE); Ph COLOR INTERFERENCE (5-6); Protein,Urine Dip COLOR INTERFERENCE (Negative); Specific Gravity COLOR INTERFERENCE (1.005-1.025)
[2017-05-16 21:29] LABS: Bacteria MODERATE /HPF (NEGATIVE); Bilirubin COLOR INTERFERENCE (NEGATIVE); Blood COLOR INTERFERENCE Ery/ul (0-5); Glucose COLOR INTERFERENCE mg/dL (NEGATIVE); Ketones COLOR INTERFERENCE (NEGATIVE); Urobilinogen COLOR INTERFERENCE mg/dL (0-1); WBC 25-50 /HPF (0-5)
[2017-05-16 22:09] VITALS: BP 162/82; PULSE 83
[2017-05-16 22:15] VITALS: O2SAT 97
== END | disposition short-term general hospital (02) ==
LOC: ED 18:20
DX: N30.01 Acute cystitis with hematuria (principal); T83.83XA Hemorrhage due to genitourinary prosthetic devices, implants and grafts, initial encounter; G82.20 Paraplegia, unspecified; Z79.899 Other long term (current) drug therapy
CPT/HCPCS: 96374; 96365; 99285; 36000; 96360; 96375; 87040; 81000; 85610; 36415; 87186; 85025; 87077; 80048; 87086; 86850; 86900; 86901; P9612; J0696; J2270; J2405

== ENCOUNTER 2017-07-23 15:51 | Emergency (ER) | payer MEDICARE, OTHER ==
[2017-07-23] MEDS ORDERED: Nitrostat 0.4 MG (ED) SL (16:40)
[2017-07-23] MEDS ORDERED: PROTONIX 40 MG IV IV (16:40)
[2017-07-23] MEDS: Nitrostat 0.4 MG (ED) SL ×4 (16:41→20:07)
[2017-07-23 16:42] LABS: PROTIME 12.5 SECONDS (8.83-12.87)
[2017-07-23 16:42] LABS: INR 1.07 (0.8-3.0)
[2017-07-23] MEDS: PROTONIX 40 MG IV IV (16:42)
[2017-07-23 16:46] LABS: ALBUMIN 3.9 g/dL (3.5-5.0); ALKALINE PHOSPHATASE 104 U/L (38-126); ANION GAP 14.4 MEQ/L (5-15); BLOOD UREA NITROGEN 15 mg/dL (9-20); CHLORIDE 99 mmol/L (98-107); Calcium 9.3 mg/dL (8.4-10.2); Carbon Dioxide 31 mmol/L (22-30); Creatinine 1 0.74 mg/dL (0.66-1.25); EST GLOMERULAR FILTRATION RATE > 60.0 ML/MIN; Glucose 92 mg/dL (74-106); Potassium 4.4 mmol/L (3.5-5.1); SGOT/AST 41 U/L (17-59); SGPT/ALT 29 U/L (0-50); SODIUM 140 mmol/L (137-145); Total Protein 7.4 g/dL (6.3-8.2)
[2017-07-23 16:47] LABS: BASOPHIL % 0.3 % (0.0-0.4); Basophil (Absolute #) 0.02 (0-0.4); Eosinophil % 3.2 % (0.00-5.0); Eosinophil (Absolute #) 0.22 (0-0.5); Granulocyte Absolute (ANC) 3.65 (1.4-6.9); Granulocytes % 53.2 % (36.0-66.0); Hematocrit 48.9 % (42-50); Hemoglobin 15.8 gm/dl (12.5-18.0); Lymphocytes % 26.2 % (24.0-44.0); Mean Cell Volume 83.4 fl (78-100); Mean Corpuscular Hgb Concent. 32.3 g/dl (32-36); Mean Platelet Volume 10.5 fl (6-9.5); Monocyte (Absolute #) 1.17 (0.0-1.3); Monocytes % 17.1 % (0.0-12.0); Platelet Count 208 K/mm3 (150-450); Red Blood Count 5.86 M/mm3 (4.1-5.6); Red Cell Distribution Width 15.5 % (11.5-14.0); White Blood Count 6.9 K/mm3 (4.0-10.5)
[2017-07-23 16:51] LABS: ADD MANUAL DIFF? NO (NO); Mean Corpuscular Hemoglobin 26.9 pg (26-32)
[2017-07-23 17:01] LABS: TROPONIN < 0.012 ng/mL (0.000-0.034)
[2017-07-23] MEDS: MORPHINE SULFATE 2 MG INJ IV ×2 (17:47→19:46)
[2017-07-23] MEDS ORDERED: MORPHINE SULFATE 2 MG INJ (17:47)
[2017-07-23] MEDS ORDERED: Catapres 0.1 MG ×2 (17:57→18:55)
[2017-07-23] MEDS: Catapres 0.1 MG PO ×2 (17:58→18:55)
[2017-07-23] MEDS ORDERED: TYLENOL 325 MG PO (19:33)
[2017-07-23] MEDS ORDERED: Nitrostat 0.4 MG Tablet SL (19:43)
[2017-07-23] MEDS: Catapres TTS-2 PATCH TOP (20:00)
[2017-07-23 21:48] LABS: TROPONIN < 0.012 ng/mL (0.000-0.034)
[2017-07-23 22:50] LABS: TROPONIN < 0.012 ng/mL (0.000-0.034)
[2017-07-23] MEDS ORDERED: DESYREL 50 MG (23:06)
[2017-07-23] MEDS: DESYREL 50 MG PO (23:08)
[2017-07-24] MEDS: MORPHINE SULFATE 2 MG INJ IV ×4 (01:28→17:11)
[2017-07-24 02:27] LABS: TROPONIN < 0.012 ng/mL (0.000-0.034)
[2017-07-24 06:06] LABS: TROPONIN < 0.012 ng/mL (0.000-0.034)
[2017-07-24] MEDS: Advair Hfa 115/21 Common canister IH ×2 (07:14→19:28)
[2017-07-24] MEDS ORDERED: MORPHINE SULFATE 2 MG INJ (07:40)
[2017-07-24] MEDS ORDERED: PROTONIX 40 MG IV IV (07:59)
[2017-07-24] MEDS: PROTONIX 40 MG IV IV (08:09)
[2017-07-24] MEDS: Nitrostat 0.4 MG Tablet SL ×3 (10:16→10:35)
[2017-07-24] MEDS ORDERED: BUPRENORPHINE HCL 600 MCG BC (10:30)
[2017-07-24] MEDS: NITRO-BID 2% UD PACKETS TOP ×3 (10:49→21:11)
[2017-07-24] MEDS: Cozaar 50 MG PO (10:49)
[2017-07-24] MEDS: ECOTRIN 81 MG PO (10:49)
[2017-07-24] MEDS: Mobic 7.5 MG PO (10:49)
[2017-07-24 10:56] LABS: LIPASE 348 U/L (23-300)
[2017-07-24 10:56] LABS: AMYLASE 95 U/L (30-110)
[2017-07-24] MEDS ORDERED: MEDICATION INTERVENTION MC ×2 (11:00→11:15)
[2017-07-24] MEDS: Toprol Xl 50 MG PO (11:03)
[2017-07-24] MEDS: Effexor XR 75 MG PO (11:03)
[2017-07-24] MEDS: Ranexa 500 MG PO ×2 (11:03→21:11)
[2017-07-24] MEDS: Miralax Powder 17GM PACKET PO (11:04)
[2017-07-24] MEDS: Pepcid 20 MG PO ×2 (11:04→21:11)
[2017-07-24] MEDS: LYRICA 150MG PO ×2 (11:04→21:11)
[2017-07-24] MEDS: PLAVIX 75 MG Tablet PO ×2 (11:10→12:29)
[2017-07-24 11:11] LABS: TROPONIN < 0.012 ng/mL (0.000-0.034)
[2017-07-24] MEDS: Sodium Chloride 0.9% 1000 ML 1,000 ML IV (11:17)
[2017-07-24 11:19] LABS: D-DIMER QUANTITATION 644.71 ng/mL (215-500)
[2017-07-24] MEDS: Carafate SUSPENSION 1000 MG/10 ML PO ×2 (11:38→17:20)
[2017-07-24] MEDS: LIPITOR 40MG PO (11:40)
[2017-07-24] MEDS: PATIENT OWN MEDICATION BC ×3 (13:59→21:27)
[2017-07-24 14:03] LABS: TROPONIN < 0.012 ng/mL (0.000-0.034)
[2017-07-24] MEDS ORDERED: DOCUSATE SODIUM 200 MG PO (15:00)
[2017-07-24] MEDS: Imdur 60MG PO (17:07)
[2017-07-24] MEDS: Colace 100 MG PO ×2 (17:07→21:11)
[2017-07-24] MEDS: Zofran 4 MG/2 ML VIAL IV (21:05)
[2017-07-24] MEDS: DESYREL 50 MG PO (21:11)
[2017-07-24] MEDS: SENOKOT 8.6 MG PO (21:11)
[2017-07-24] MEDS ORDERED: DESYREL 50 MG PO (22:00)
[2017-07-24] MEDS ORDERED: CRANBERRY 15000 MG PO (22:00)
[2017-07-24] MEDS ORDERED: NON-FORMULARY ITEM (Ranitidine Hcl [Zantac] 150 MG) PO (22:00)
[2017-07-25] MEDS: Sodium Chloride 0.9% 1000 ML 1,000 ML IV ×2 (00:08→14:31)
[2017-07-25] MEDS: PATIENT OWN MEDICATION BC ×2 (06:52→17:54)
[2017-07-25] MEDS: NITRO-BID 2% UD PACKETS TOP ×2 (06:53→14:31)
[2017-07-25] MEDS: Advair Hfa 115/21 Common canister IH (07:01)
[2017-07-25] MEDS: Colace 100 MG PO ×2 (09:53→14:31)
[2017-07-25] MEDS: Pepcid 20 MG PO (09:53)
[2017-07-25] MEDS: LIPITOR 40MG PO (09:53)
[2017-07-25] MEDS: Effexor XR 75 MG PO (09:54)
[2017-07-25] MEDS: Toprol Xl 50 MG PO (09:54)
[2017-07-25] MEDS: Cozaar 50 MG PO (09:54)
[2017-07-25] MEDS: ECOTRIN 81 MG PO (09:54)
[2017-07-25] MEDS: Ranexa 500 MG PO (09:54)
[2017-07-25] MEDS: LYRICA 150MG PO (09:55)
[2017-07-25] MEDS: Miralax Powder 17GM PACKET PO (09:55)
[2017-07-25] MEDS: Mobic 7.5 MG PO (09:55)
[2017-07-25] MEDS: PROTONIX 40 MG IV IV (09:56)
[2017-07-25] MEDS ORDERED: NON-FORMULARY ITEM (Venlafaxine Hcl [Effexor Xr] 150 MG) PO (10:00)
[2017-07-25] MEDS ORDERED: NON-FORMULARY ITEM (Multivitamin [Multivitamins] 1 EACH) PO ×2 (10:00)
[2017-07-25] MEDS: PLAVIX 75 MG Tablet PO (10:02)
[2017-07-25] MEDS: SENOKOT 8.6 MG PO (14:31)
[2017-07-25] MEDS: MORPHINE SULFATE 2 MG INJ IV (15:09)
[2017-07-25] MEDS: Nitrostat 0.4 MG Tablet SL ×2 (15:23→15:50)
[2017-07-25 16:16] LABS: TROPONIN < 0.012 ng/mL (0.000-0.034)
[2017-07-31] MEDS ORDERED: DEPO-TESTOSTERONE IM (10:30)
== END 2017-07-25 18:40 | disposition short-term general hospital (02) ==
LOC: ED 15:51 → MED SURG 19:25
CPT/HCPCS: 36000; 36415; 71045; 71260; 80053; 82150; 83690; 84484; 85025; 85379; 85610; 93005; 93041; 94640; 94660; 94760; 96374; 99285; J2270; J2405

== ENCOUNTER 2017-12-02 15:51 | Emergency (ER) | payer MEDICARE, OTHER ==
[2017-12-02] MEDS ORDERED: Zofran 4 MG/2 ML VIAL IV ONE (16:13)
[2017-12-02] MEDS ORDERED: Pepcid 20 MG VIAL IV ONE ×2 (16:13→16:23)
[2017-12-02] MEDS ORDERED: SUBLIMAZE 100 MCG/2 ML IV ONE (16:13)
[2017-12-02] MEDS ORDERED: Sodium Chloride 0.9% 1000 ML 1,000 ML IV SCH (16:15)
[2017-12-02] MEDS ORDERED: GI COCKTAIL 45 ML (Maalox/Lidocaine) PO ONE (16:17)
[2017-12-02] MEDS ORDERED: Sodium Chloride 0.9% 1000 ML 1,000 ML ONE (16:23)
[2017-12-02] MEDS ORDERED: Zofran 4 MG/2 ML VIAL ONE (16:23)
[2017-12-02] MEDS ORDERED: SUBLIMAZE 100 MCG/2 ML ONE (16:23)
--- NOTE | 2017-12-02 16:27 | ERPHSYRPT ---
- History of Present Illness Time Seen by Provider: 12/02/17 16:10 Historian: patient Exam Limitations: no limitations Patient Subjective Stated Complaint: pt here for abd pain to left side, this is chronic pain that comes and goes, worse the last 2 days. Triage Nursing Assessment: pt arrived per ambulance,alert, resp easy, skin w/d/ p. abd soft, pt is paraplygic, Physician History: Pt started c/o upper abdominal pain 2 hours ago, radiating to his back, nauseated, denies vomiting, diarrhea, he had normal BM today, denies bloody stool, fever, chills other complaints. 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 He has been suffering similar abdominal pains for years and was worked up extensively. He underwent colectomy 2 years ago because of colon cancer. Timing/Duration: today, hour(s) (2) Activities at Onset: none Quality: cramping, sharpness Abdominal Pain Onset Location: LUQ, epigastric Pain Radiation: back Severity of Pain-Max: severe Severity of Pain-Current: moderate Modifying Factors: Improves With: nothing Associated Symptoms: back, nausea Previous symptoms: same symptoms as today Allergies/Adverse Reactions: No Known Drug Allergies Allergy (Verified 12/02/17 15:59) Home Medications: Ranitidine HCl [Zantac] 150 mg PO BID 05/18/16 [History] Testosterone Cypionate 200 mg IM UD 05/18/16 [History] Venlafaxine HCl [Effexor Xr] 150 mg PO DAILY 05/18/16 [History] Cranberry 15,000 mg PO HS 06/19/16 [History] Multivitamin [Multivitamins] 1 each PO DAILY 06/19/16 [History] Nitroglycerin 0.4 mg SL Q5MIN PRN MR X 3 PRN 06/19/16 [History] Docusate Sodium [Stool Softener] 200 mg PO TID 01/11/17 [History] Fluticasone/Vilanterol [Breo Ellipta 100-25 Mcg INH] 1 each IH UD 01/11/17 [ History] Atorvastatin Calcium [Lipitor] 40 mg PO DAILY 01/18/17 [History] Buprenorphine HCl [Belbuca] 600 mcg BC UD 01/18/17 [History] Isosorbide Mononitrate [Isosorbide Mononitrate ER] 60 mg PO 1800 01/18/17 [ History] Polyethylene Glycol 3350 [Miralax] 17 gm PO DAILY 01/18/17 [History] Pregabalin [Lyrica 150Mg] 150 mg PO BID 01/18/17 [History] Ranolazine 500 MG [Ranexa 500 MG] 500 mg PO BID 01/18/17 [History] Trazodone HCl 50 mg [Desyrel 50 mg] 50 mg PO HS 01/18/17 [History] Losartan Potassium 50 mg PO DAILY 04/03/17 [History] Sennosides 17.2 mg PO HS 04/03/17 [History] Hx Tetanus, Diphtheria Vaccination/Date Given: Yes Hx Influenza Vaccination/Date Given: No Hx Pneumococcal Vaccination/Date Given: No Immunizations Up to Date: Yes - Review of Systems Constitutional: No Symptoms Abdominal/Gastrointestinal: Abdominal Pain, Nausea All Other Systems: Reviewed and Negative - Past Medical History Pertinent Past Medical History: Yes Neurological History: Paralysis, Other ENT History: No Pertinent History Cardiac History: Angina, Congestive Heart Failure, Coronary Artery Disease, High Cholesterol, Hypertension Respiratory History: Bronchitis Endocrine Medical History: No Pertinent History Musculoskeletal History: Fractures GI Medical History: Colorectal Cancer, GI Bleed History: No Pertinent History Psycho-Social History: No Pertinent History Male Reproductive Disorders: No Pertinent History 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 Left leg operation times 3, COLON CA AND RESECTION IN JAN, 2016 - Social History Smoking Status: Never smoker How long have you smoked: 40 years Exposure to second hand smoke: No Alcohol Use: None Drug Use: none Patient Lives Alone: No Significant Family History: heart disease, diabetes - Nursing Vital Signs Nursing Vital Signs: Initial Vital Signs Temperature 97.8 F 12/02/17 15:52 Pulse Rate 85 12/02/17 15:52 Respiratory Rate 16 12/02/17 15:52 Blood Pressure 153/106 12/02/17 15:52 O2 Sat by Pulse Oximetry 97 12/02/17 15:52 Pain Scale Pain Intensity 4 - Physical Exam General Appearance: no apparent distress Eye Exam: eyes nml inspection Ears, Nose, Throat Exam: normal ENT inspection, moist mucous membranes Neck Exam: normal inspection, non-tender Respiratory Exam: normal breath sounds, lungs clear, No chest tenderness Cardiovascular Exam: regular rate/rhythm, normal heart sounds, normal peripheral pulses Gastrointestinal/Abdomen Exam: soft, normal bowel sounds, tenderness (moderate diffuse, upper abdomen), No distention, No mass, No guarding, No ecchymosis, No pulsatile mass, No rebound, No hernia, No organomegaly Extremity Exam: normal inspection Neurologic Exam: alert, oriented x 3, other (paraparesis) Skin Exam: normal color, warm, dry, other (there is a small area of erythema on the dorsal aspect of the left ring finger base phalanx, with a tiny pustile, ( hair folliculitis)m no deep abscess or discharge, good distal circulation and capillary refills.), No rash Lymphatic Exam: No adenopathy SpO2 Interpretation: normal SpO2: 97 Oxygen Delivery: Room Air - Course Nursing assessment & vital signs reviewed: Yes EKG Interpreted by Me: RATE (79/min), Left [place] Deviation, NORMAL INTERVALS, Non -specific ST Changes, Other (unchanged from 07/25/17 18:53 PM, repeat Ekg: unchanged.) - Radiology Exams Chest X-ray Interpretation: Reviewed by me, Negative - CT Exams Abdomen/Pelvis CT Interpretation: Negative, Tele-radiologist Report, No appendicitis Ordered Tests: Active Orders 24 hr Category Date Time Status EKG-ER Only STAT Care 12/02/17 16:13 Active EKG-ER Only STAT Care 12/02/17 18:16 Active IV Insertion STAT Care 12/02/17 16:13 Active ABDOMEN AND PELVIS W CONTRAST [CT] Stat Exams 12/02/17 17:21 Taken CHEST 1 VIEW (PORTABLE) Stat Exams 12/02/17 16:14 Completed AMYLASE Stat Lab 12/02/17 16:30 Completed CBC W DIFF Stat Lab 12/02/17 16:13 Completed CMP Stat Lab 12/02/17 16:30 Completed CULTURE,URINE Stat Lab 12/02/17 17:00 Received LIPASE Stat Lab 12/02/17 16:30 Completed TROPONIN Q3H Lab 12/02/17 16:30 Completed TROPONIN Q3H Lab 09/20/18 18:40 Received TROPONIN Q3H Lab 12/02/17 22:15 Ordered TROPONIN Q3H Lab 12/03/17 01:15 Ordered TROPONIN Q3H Lab 12/03/17 04:15 Ordered UA W/ MICROSCOPIC Stat Lab 12/02/17 17:00 Completed Medication Summary Generic Name Dose Route Start Last Admin Trade Name Vern PRN Reason Stop Dose Admin Sodium Chloride 1,000 mls @ 100 mls/hr 12/02/17 16:15 12/02/17 16:32 Sodium Chloride 0.9% 1000 Ml IV 01/01/18 16:14 100 mls/hr .Q10H SHAI Administration Discontinued Medications Generic Name Dose Route Start Last Admin Trade Name Vern PRN Reason Stop Dose Admin Al Hydrox/Mg Hydrox/Simethicone Confirm 12/02/17 16:56 Maalox Es 30 Ml Unit Dose Administered 12/02/17 16:57 Dose 30 ml .ROUTE .STK-MED ONE Diphtheria/Tetanus/Acell Pertussis 0.5 ml 12/02/17 16:46 12/02/17 17:01 Adacel Vial IM 12/02/17 16:47 0.5 ml .ONCE ONE Administration Diphtheria/Tetanus/Acell Pertussis Confirm 12/02/17 17:04 Adacel Vial Administered 12/02/17 17:05 Dose 0.5 ml IM .STK-MED ONE Famotidine 20 mg 12/02/17 16:13 12/02/17 16:31 Pepcid 20 Mg Vial IV 12/02/17 16:14 20 mg STAT ONE Administration Famotidine Confirm 12/02/17 16:23 Pepcid 20 Mg Vial Administered 12/02/17 16:24 Dose 20 mg IV .STK-MED ONE Fentanyl Citrate 50 mcg 12/02/17 16:13 12/02/17 16:31 Sublimaze 100 Mcg/2 Ml IV 12/02/17 16:14 100 mcg STAT ONE Administration Fentanyl Citrate Confirm 12/02/17 16:23 Sublimaze 100 Mcg/2 Ml Administered 12/02/17 16:24 Dose 100 mcg .ROUTE .STK-MED ONE Ceftriaxone Sodium/Dextrose 1 g in 50 mls @ 100 mls/hr 12/02/17 17:23 17:48 Rocephin 1 Gm-D5w 50 Ml Bag IV 12/02/17 17:52 100 ml/hr STAT ONE 100 mls/hr Administration Ceftriaxone Sodium/Dextrose Confirm 12/02/17 17:47 Rocephin 1 Gm-D5w 50 Ml Bag Administered 12/02/17 17:48 Dose 1 g in 50 mls @ ud IV .STK-MED ONE Lidocaine HCl Confirm 12/02/17 16:56 Xylocaine Hcl Viscous * Administered 12/02/17 16:57 Dose 15 ml .ROUTE .STK-MED ONE Magnesium Hydroxide 45 ml 12/02/17 16:17 12/02/17 16:57 Gi Cocktail 45 Ml (Maalox/Lidocaine) PO 12/02/17 16:18 45 ml STAT ONE Administration Ondansetron HCl 4 mg 12/02/17 16:13 12/02/17 16:32 Zofran 4 Mg/2 Ml Vial IV 12/02/17 16:14 4 mg STAT ONE Administration Ondansetron HCl Confirm 12/02/17 16:23 Zofran 4 Mg/2 Ml Vial Administered 12/02/17 16:24 Dose 4 mg .ROUTE .STK-MED ONE Lab/Rad Data: Laboratory Result Diagrams 12/02/17 16:13 12/02/17 16:30 Laboratory Results 12/02/17 12/02/17 12/02/17 Range/Units 17:00 16:30 16:30 WBC (4.0-10.5) K/mm3 RBC (4.1-5.6) M/mm3 Hgb (12.5-18.0) gm/dl Hct (42-50) % MCV (78-100) fl MCH (26-32) pg MCHC (32-36) g/dl RDW (11.5-14.0) % Plt Count (150-450) K/mm3 MPV (6-9.5) fl Gran % (36.0-66.0) % Eos # (Auto) (0-0.5) Absolute Lymphs (auto) (1.0-4.6) Absolute Monos (auto) (0.0-1.3) Lymphocytes % (24.0-44.0) % Monocytes % (0.0-12.0) % Eosinophils % (0.00-5.0) % Basophils % (0.0-0.4) % Absolute Granulocytes (1.4-6.9) Basophils # (0-0.4) Sodium 138 (137-145) mmol/L Potassium 4.1 (3.5-5.1) mmol/L Chloride 98 (98-107) mmol/L Carbon Dioxide 29 (22-30) mmol/L Anion Gap 14.4 (5-15) MEQ/L BUN 17 (9-20) mg/dL Creatinine 0.76 (0.66-1.25) mg/dL Estimated GFR > 60.0 ML/MIN Glucose 96 (74-106) mg/dL Calcium 9.3 (8.4-10.2) mg/dL Total Bilirubin 0.30 (0.2-1.3) mg/dL AST 24 (17-59) U/L ALT 24 (0-50) U/L Alkaline Phosphatase 90 (38-126) U/L Troponin I < 0.012 (0.000-0.034) ng/mL Serum Total Protein 6.6 (6.3-8.2) g/dL Albumin 4.0 (3.5-5.0) g/dL Amylase 94 (30-110) U/L Lipase 172 (23-300) U/L Ur Collection Type CATH Urine Color YELLOW (YELLOW) Urine Appearance HAZY (CLEAR) Urine pH 7.0 (5-6) Ur Specific [place] 1.010 (1.005-1.025) Urine Protein NEGATIVE (Negative) Urine Ketones NEGATIVE (NEGATIVE) Urine Blood 5-10 (0-5) Luis M/ul Urine Nitrite POSITIVE (NEGATIVE) Urine Bilirubin NEGATIVE (NEGATIVE) Urine Urobilinogen NORMAL (0-1) mg/dL Ur Leukocyte Esterase 2+ (NEGATIVE) Urine Microscopic RBC 0-2 (0-2) /HPF Urine Microscopic WBC 15-25 (0-5) /HPF Ur Epithelial Cells FEW (FEW) /HPF Urine Bacteria FEW (NEGATIVE) /HPF Urine Culture Reflexed YES (NO) Urine Glucose NEGATIVE (NEGATIVE) mg/dL 12/02/17 Range/Units 16:13 WBC 8.0 (4.0-10.5) K/mm3 RBC 5.72 H (4.1-5.6) M/mm3 Hgb 16.6 (12.5-18.0) gm/dl Hct 49.8 (42-50) % MCV 87.1 (78-100) fl MCH 29.0 (26-32) pg MCHC 33.3 (32-36) g/dl RDW 18.2 H (11.5-14.0) % Plt Count 215 (150-450) K/mm3 MPV 9.9 H (6-9.5) fl Gran % 59.5 (36.0-66.0) % Eos # (Auto) 0.12 (0-0.5) Absolute Lymphs (auto) 2.09 (1.0-4.6) Absolute Monos (auto) 1.01 (0.0-1.3) Lymphocytes % 26.0 (24.0-44.0) % Monocytes % 12.6 H (0.0-12.0) % Eosinophils % 1.5 (0.00-5.0) % Basophils % 0.4 (0.0-0.4) % Absolute Granulocytes 4.78 (1.4-6.9) Basophils # 0.03 (0-0.4) Sodium (137-145) mmol/L Potassium (3.5-5.1) mmol/L Chloride (98-107) mmol/L Carbon Dioxide (22-30) mmol/L Anion Gap (5-15) MEQ/L BUN (9-20) mg/dL Creatinine (0.66-1.25) mg/dL Estimated GFR ML/MIN Glucose (74-106) mg/dL Calcium (8.4-10.2) mg/dL Total Bilirubin (0.2-1.3) mg/dL AST (17-59) U/L ALT (0-50) U/L Alkaline Phosphatase (38-126) U/L Troponin I (0.000-0.034) ng/mL Serum Total Protein (6.3-8.2) g/dL Albumin (3.5-5.0) g/dL Amylase (30-110) U/L Lipase (23-300) U/L Ur Collection Type Urine Color (YELLOW) Urine Appearance (CLEAR) Urine pH (5-6) Ur Specific [place] (1.005-1.025) Urine Protein (Negative) Urine Ketones (NEGATIVE) Urine Blood (0-5) Luis M/ul Urine Nitrite (NEGATIVE) Urine Bilirubin (NEGATIVE) Urine Urobilinogen (0-1) mg/dL Ur Leukocyte Esterase (NEGATIVE) Urine Microscopic RBC (0-2) /HPF Urine Microscopic WBC (0-5) /HPF Ur Epithelial Cells (FEW) /HPF Urine Bacteria (NEGATIVE) /HPF Urine Culture Reflexed (NO) Urine Glucose (NEGATIVE) mg/dL - Progress Progress: improved Progress Note: 12/02/17 18:52 Pt states, he feels better, did not vomit, no fever, chills, pain subsided. 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 He was given 1 g Rocephine iv, and discharged with Rx of Keflex 500mg Q6h x 7 days, Librax PO Q6h PRN for pain, and Protonix 40 mg daily. 12/02/17 18:54 - Departure Time of Disposition: 18:55 Departure Disposition: Home Clinical Impression: Abdominal pain Qualifiers: Abdominal location: left upper quadrant Qualified Code(s): R10.12 - Left upper quadrant pain UTI (urinary tract infection) Qualifiers: Urinary tract infection type: acute cystitis Hematuria presence: without hematuria Qualified Code(s): N30.00 - Acute cystitis without hematuria Condition: Stable Critical Care Time: No Referrals: MICHELLE MATOS [Primary Care Provider] - Instructions: Acute Abdomen (Belly Pain), Adult (DC), Urinary Tract Infection, Adult (DC), Acid Reflux (Gastroesophageal Reflux Disease), Adult (DC) Additional Instructions: Drink plenty of fluids, 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 Prescriptions: Cephalexin Mh 500 mg [Keflex 500 mg] 500 mg PO Q6H 7 Days #28 capsule Chlordiazepoxide/Clidinium Br [Librax Capsule] 1 each PO Q6H PRN #10 capsule PRN Reason: Pain PANTOPRAZOLE 40 mg Tablet [Protonix 40MG Tablet] 40 mg PO QAM 30 Days #30 tab
--- NOTE | 2017-12-02 16:38 | XRAY ---
Indication: Epigastric pain. Comparison: July 23, 2017. Portable chest again demonstrates normal heart and lungs. Bony thorax intact again with bilateral spinal Elder rods/pedicle screws. No new/acute findings.
[2017-12-02] MEDS ORDERED: Adacel Vial IM ONE ×2 (16:46→17:04)
[2017-12-02 16:49] LABS: BASOPHIL % 0.4 % (0.0-0.4); Basophil (Absolute #) 0.03 (0-0.4); Eosinophil % 1.5 % (0.00-5.0); Eosinophil (Absolute #) 0.12 (0-0.5); Granulocyte Absolute (ANC) 4.78 (1.4-6.9); Granulocytes % 59.5 % (36.0-66.0); Hematocrit 49.8 % (42-50); Hemoglobin 16.6 gm/dl (12.5-18.0); Lymphocyte (Absolute #) 2.09 (1.0-4.6); Mean Cell Volume 87.1 fl (78-100); Mean Corpuscular Hgb Concent. 33.3 g/dl (32-36); Mean Platelet Volume 9.9 fl (6-9.5); Monocyte (Absolute #) 1.01 (0.0-1.3); Monocytes % 12.6 % (0.0-12.0); Platelet Count 215 K/mm3 (150-450); Red Blood Count 5.72 M/mm3 (4.1-5.6); Red Cell Distribution Width 18.2 % (11.5-14.0)
[2017-12-02] MEDS ORDERED: MAALOX ES 30 ML UNIT DOSE ONE (16:56)
[2017-12-02] MEDS ORDERED: XYLOCAINE HCl Viscous ONE (16:56)
[2017-12-02 17:06] LABS: ALKALINE PHOSPHATASE 90 U/L (38-126); AMYLASE 94 U/L (30-110); ANION GAP 14.4 MEQ/L (5-15); BLOOD UREA NITROGEN 17 mg/dL (9-20); CHLORIDE 98 mmol/L (98-107); Calcium 9.3 mg/dL (8.4-10.2); Carbon Dioxide 29 mmol/L (22-30); Creatinine 1 0.76 mg/dL (0.66-1.25); Glucose 96 mg/dL (74-106); LIPASE 172 U/L (23-300); Potassium 4.1 mmol/L (3.5-5.1); SGOT/AST 24 U/L (17-59); SGPT/ALT 24 U/L (0-50); SODIUM 138 mmol/L (137-145); Total Protein 6.6 g/dL (6.3-8.2)
[2017-12-02 17:20] LABS: Appearance HAZY (CLEAR)
[2017-12-02 17:21] LABS: Bilirubin NEGATIVE (NEGATIVE); Glucose NEGATIVE (NEGATIVE); Ketones NEGATIVE (NEGATIVE); Leukocyte Esterase 2+ (NEGATIVE); Nitrite POSITIVE (NEGATIVE); Protein,Urine Dip NEGATIVE (Negative); Urobilinogen NORMAL mg/dL (0-1)
[2017-12-02] MEDS ORDERED: ROCEPHIN 1 Gm-D5w 50 ml Bag** 1 G/50 ML IVPB IV ONE ×2 (17:23→17:47)
[2017-12-02 17:53] LABS: Bacteria FEW /HPF (NEGATIVE); Epithelial Cells FEW /HPF (FEW); RBC 0-2 /HPF (0-2); WBC 15-25 /HPF (0-5)
[2017-12-02 19:16] VITALS: BP 180/103
[2017-12-02 19:29] VITALS: PULSE 78; O2SAT 97
--- NOTE | 2017-12-03 08:57 | XRAY ---
Indication: Abdomen pain. Multiple contiguous axial images obtained through the abdomen and pelvis using 80 cc Isovue 370 contrast only. Comparison: CTA abdomen/pelvis October 06, 2017. Lung bases demonstrates minimal bibasilar dependent atelectasis/scarring. No infiltrate or effusion. Heart is not enlarged. Noncontrasted stomach and bowel loops appear nonobstructed. Again there is moderate diffuse scattered colonic fecal debris throughout. Stable intact sigmoid anastomosis. No free fluid/air. Stable fatty liver and cholecystectomy. Urinary bladder again demonstrates moderate circumferential wall thickening, incomplete distention versus cystitis. Remaining liver, pancreas, spleen, adrenal glands, kidneys, and ureters appear unremarkable. There remains mild aortoiliac calcifications without AAA. Osseous structures again demonstrates multilevel degenerative spondylosis, degenerative changes of both hips, remote L1 superior endplate fracture, incompletely visualized lower thoracic bilateral spinal rods/pedicle screws, and left lower back spinal stimulator device with leads terminating T12 level. No ventral or inguinal hernias. Impression: 1. Again fecal stasis without obstruction. 2. Stable urinary bladder wall thickening, incomplete distention versus cystitis. 3. Stable fatty liver and chronic bony findings. CT DI 21.32
== END 2017-12-02 19:30 | disposition home or self-care (01) ==
LOC: ED 15:51
DX: R10.12 Left upper quadrant pain (principal); N39.0 Urinary tract infection, site not specified; R10.13 Epigastric pain; Z79.899 Other long term (current) drug therapy; G83.9 Paralytic syndrome, unspecified
CPT/HCPCS: 36415; 71045; 74177; 80053; 81000; 82150; 83690; 84484; 85025; 87077; 87086; 87186; 90471; 90715; 93005; 96360; 96365; 96374; 96375; 99285; J0696; J2405; J3010; A9270-GY

== ENCOUNTER 2018-07-18 16:20 | Emergency (ER) | payer MEDICARE, OTHER ==
[2018-07-18] MEDS ORDERED: Sodium Chloride 0.9% 1000 ML 1,000 ML IV STA (16:26)
--- NOTE | 2018-07-18 16:31 | ERPHSYRPT ---
- History of Present Illness Historian: patient, EMS Hx Tetanus, Diphtheria Vaccination/Date Given: Yes Hx Influenza Vaccination/Date Given: No Hx Pneumococcal Vaccination/Date Given: No <JASSI GARCIA - Last Filed: 07/18/18 18:30> <LAI TOBAR - Last Filed: 07/18/18 22:50> - History of Present Illness Time Seen by Provider: 07/18/18 16:29 Physician History: mild to mod diffuse off and on cramps for one day, no NV, no injury, nonrad, no fever (JASSI GARCIA) Allergies/Adverse Reactions: No Known Drug Allergies Allergy (Verified 12/02/17 15:59) Home Medications: Ranitidine HCl [Zantac] 150 mg PO BID 05/18/16 [History] Testosterone Cypionate 200 mg IM UD 05/18/16 [History] Venlafaxine HCl [Effexor Xr] 150 mg PO DAILY 05/18/16 [History] Cranberry 15,000 mg PO HS 06/19/16 [History] Multivitamin [Multivitamins] 1 each PO DAILY 06/19/16 [History] Nitroglycerin 0.4 mg SL Q5MIN PRN MR X 3 PRN 06/19/16 [History] Docusate Sodium [Stool Softener] 200 mg PO TID 01/11/17 [History] Fluticasone/Vilanterol [Breo Ellipta 100-25 Mcg INH] 1 each IH UD 01/11/17 [ History] Atorvastatin Calcium [Lipitor] 40 mg PO DAILY 01/18/17 [History] Buprenorphine HCl [Belbuca] 600 mcg BC UD 01/18/17 [History] Isosorbide Mononitrate [Isosorbide Mononitrate ER] 60 mg PO 1800 01/18/17 [ History] Polyethylene Glycol 3350 [Miralax] 17 gm PO DAILY 01/18/17 [History] Pregabalin [Lyrica 150Mg] 150 mg PO BID 01/18/17 [History] Ranolazine 500 MG [Ranexa 500 MG] 500 mg PO BID 01/18/17 [History] Trazodone HCl 50 mg [Desyrel 50 mg] 50 mg PO HS 11/06/17 [History] Losartan Potassium 50 mg PO DAILY 04/03/17 [History] Sennosides 17.2 mg PO HS 04/03/17 [History] - Review of Systems Constitutional: No Fever Eyes: No Vision Changes Ears, Nose, & Throat: No Mouth Pain Respiratory: No Dyspnea Cardiac: No Chest Pain Abdominal/Gastrointestinal: Abdominal Pain Musculoskeletal: Other (parapelgia) Neurological: No Dizziness <JASSI GARCIA - Last Filed: 07/18/18 18:30> - Past Medical History Pertinent Past Medical History: Yes Neurological History: Paralysis, Other ENT History: No Pertinent History Cardiac History: Angina, Congestive Heart Failure, Coronary Artery Disease, High Cholesterol, Hypertension Respiratory History: Bronchitis Endocrine Medical History: No Pertinent History Musculoskeletal History: Fractures GI Medical History: Colorectal Cancer, GI Bleed History: No Pertinent History Psycho-Social History: No Pertinent History Male Reproductive Disorders: No Pertinent History 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 Left leg operation times 3, COLON CA AND RESECTION IN JAN, 2016 - Social History Smoking Status: Never smoker How long have you smoked: 40 years Exposure to second hand smoke: No Alcohol Use: None Drug Use: none Patient Lives Alone: No Significant Family History: heart disease, diabetes <JASSI GARCIA - Last Filed: 07/18/18 18:30> - Physical Exam General Appearance: no apparent distress Eye Exam: eyes nml inspection Ears, Nose, Throat Exam: moist mucous membranes Neck Exam: normal inspection Respiratory Exam: normal breath sounds Cardiovascular Exam: regular rate/rhythm Gastrointestinal/Abdomen Exam: soft, tenderness, No rebound Neurologic Exam: alert, oriented x 3 Skin Exam: normal color, warm, dry <JASSI GARCIA - Last Filed: 07/18/18 18:30> - Nursing Vital Signs Nursing Vital Signs: Initial Vital Signs Temperature 98.1 F 07/18/18 16:24 Pulse Rate 83 07/18/18 16:24 Respiratory Rate 16 07/18/18 16:24 Blood Pressure 175/97 07/18/18 16:24 O2 Sat by Pulse Oximetry 96 07/18/18 16:24 Pain Scale Pain Intensity 10 Ordered Tests: Active Orders 24 hr Category Date Time Status Dinero [Catheter-[place] Dinero] STAT Care 07/18/18 21:45 Active ABDOMEN AND PELVIS W/0 CONTRAS [CT] Stat Exams 07/18/18 16:27 Taken CBC W DIFF Stat Lab 07/18/18 16:40 Completed CMP Stat Lab 07/18/18 16:40 Completed CULTURE,URINE Stat Lab 07/18/18 17:23 Received LIPASE Stat Lab 07/18/18 16:40 Completed Lactic Acid Stat Lab 07/18/18 16:26 Completed PROTIME WITH INR Stat Lab 07/18/18 16:40 Completed TROPONIN Q3H Lab 07/18/18 16:40 Completed TROPONIN Q3H Lab 07/18/18 19:20 Completed TROPONIN Q3H Lab 07/19/18 01:30 Ordered TROPONIN Q3H Lab 07/19/18 04:30 Ordered UA W/RFX UR CULTURE Stat Lab 07/18/18 17:23 Completed Medication Summary Discontinued Medications Generic Name Dose Route Start Last Admin Trade Name Richieq PRN Reason Stop Dose Admin Sodium Chloride 1,000 mls @ 999 mls/hr 07/18/18 16:26 07/18/18 17:37 Sodium Chloride 0.9% 1000 Ml IV 07/18/18 17:26 Infused .Q1H1M STA Infusion Sodium Chloride Confirm 07/18/18 16:34 Sodium Chloride 0.9% 1000 Ml Administered 07/18/18 16:35 Dose 1,000 mls @ ud .ROUTE .STK-MED ONE Morphine Sulfate 4 mg 07/18/18 21:30 07/18/18 21:32 Morphine Sulfate 4 Mg Inj IV 07/18/18 21:31 4 mg STAT ONE Administration Morphine Sulfate Confirm 07/18/18 21:31 Morphine Sulfate 4 Mg Inj Administered 07/18/18 21:32 Dose 4 mg .ROUTE .STK-MED ONE Ondansetron HCl 4 mg 07/18/18 21:30 07/18/18 21:32 Zofran 4 Mg/2 Ml Vial IV 07/18/18 21:31 4 mg STAT ONE Administration Ondansetron HCl Confirm 07/18/18 21:30 Zofran 4 Mg/2 Ml Vial Administered 07/18/18 21:31 Dose 4 mg .ROUTE .STK-MED ONE Lab/Rad Data: Laboratory Result Diagrams 07/18/18 16:40 07/18/18 16:40 Laboratory Results 07/18/18 07/18/18 07/18/18 Range/Units 19:20 17:23 16:40 WBC (4.0-10.5) K/mm3 RBC (4.1-5.6) M/mm3 Hgb (12.5-18.0) gm/dl Hct (42-50) % MCV (78-100) fl MCH (26-32) pg MCHC (32-36) g/dl RDW (11.5-14.0) % Plt Count (150-450) K/mm3 MPV (6-9.5) fl Gran % (36.0-66.0) % Eos # (Auto) (0-0.5) Absolute Lymphs (auto) (1.0-4.6) Absolute Monos (auto) (0.0-1.3) Lymphocytes % (24.0-44.0) % Monocytes % (0.0-12.0) % Eosinophils % (0.00-5.0) % Basophils % (0.0-0.4) % Absolute Granulocytes (1.4-6.9) Basophils # (0-0.4) PT (8.83-12.87) SECONDS INR (0.8-3.0) Sodium (137-145) mmol/L Potassium (3.5-5.1) mmol/L Chloride (98-107) mmol/L Carbon Dioxide (22-30) mmol/L Anion Gap (5-15) MEQ/L BUN (9-20) mg/dL Creatinine (0.66-1.25) mg/dL Estimated GFR ML/MIN Glucose (74-106) mg/dL Lactic Acid (0.4-2.0) Calcium (8.4-10.2) mg/dL Total Bilirubin (0.2-1.3) mg/dL AST (17-59) U/L ALT (0-50) U/L Alkaline Phosphatase (38-126) U/L Troponin I < 0.012 < 0.012 (0.000-0.034) ng/mL Serum Total Protein (6.3-8.2) g/dL Albumin (3.5-5.0) g/dL Lipase (23-300) U/L Urine Color YELLOW (YELLOW) Urine Appearance CLEAR (CLEAR) Urine pH 8.0 (5-6) Ur Specific [place] 1.008 (1.005-1.025) Urine Protein NEGATIVE (Negative) Urine Ketones NEGATIVE (NEGATIVE) Urine Blood NEGATIVE (0-5) Luis M/ul Urine Nitrite NEGATIVE (NEGATIVE) Urine Bilirubin NEGATIVE (NEGATIVE) Urine Urobilinogen NEGATIVE (0-1) mg/dL Ur Leukocyte Esterase NEGATIVE (NEGATIVE) Urine WBC (Auto) NONE (0-5) /HPF Urine RBC (Auto) NONE (0-2) /HPF U Epithel Cells (Auto) NONE (FEW) /HPF Urine Bacteria (Auto) NONE (NEGATIVE) /HPF Urine Culture Reflexed ORDERED SEPARATELY (NO) Urine Glucose NEGATIVE (NEGATIVE) mg/dL 07/18/18 07/18/18 07/18/18 Range/Units 16:40 16:40 16:40 WBC 7.6 (4.0-10.5) K/mm3 RBC 5.72 H (4.1-5.6) M/mm3 Hgb 17.3 (12.5-18.0) gm/dl Hct 53.0 H (42-50) % MCV 92.7 (78-100) fl MCH 30.2 (26-32) pg MCHC 32.6 (32-36) g/dl RDW 15.0 H (11.5-14.0) % Plt Count 186 (150-450) K/mm3 MPV 10.0 H (6-9.5) fl Gran % 57.7 (36.0-66.0) % Eos # (Auto) 0.10 (0-0.5) Absolute Lymphs (auto) 2.10 (1.0-4.6) Absolute Monos (auto) 1.01 (0.0-1.3) Lymphocytes % 27.6 (24.0-44.0) % Monocytes % 13.3 H (0.0-12.0) % Eosinophils % 1.3 (0.00-5.0) % Basophils % 0.1 (0.0-0.4) % Absolute Granulocytes 4.38 (1.4-6.9) Basophils # 0.01 (0-0.4) PT 12.3 (8.83-12.87) SECONDS INR 1.06 (0.8-3.0) Sodium 138 (137-145) mmol/L Potassium 4.5 (3.5-5.1) mmol/L Chloride 101 (98-107) mmol/L Carbon Dioxide 29 (22-30) mmol/L Anion Gap 13.0 (5-15) MEQ/L BUN 17 (9-20) mg/dL Creatinine 0.76 (0.66-1.25) mg/dL Estimated GFR > 60.0 ML/MIN Glucose 102 (74-106) mg/dL Lactic Acid (0.4-2.0) Calcium 9.7 (8.4-10.2) mg/dL Total Bilirubin 0.50 (0.2-1.3) mg/dL AST 31 (17-59) U/L ALT 30 (0-50) U/L Alkaline Phosphatase 92 (38-126) U/L Troponin I (0.000-0.034) ng/mL Serum Total Protein 6.9 (6.3-8.2) g/dL Albumin 3.9 (3.5-5.0) g/dL Lipase 277 (23-300) U/L Urine Color (YELLOW) Urine Appearance (CLEAR) Urine pH (5-6) Ur Specific [place] (1.005-1.025) Urine Protein (Negative) Urine Ketones (NEGATIVE) Urine Blood (0-5) Luis M/ul Urine Nitrite (NEGATIVE) Urine Bilirubin (NEGATIVE) Urine Urobilinogen (0-1) mg/dL Ur Leukocyte Esterase (NEGATIVE) Urine WBC (Auto) (0-5) /HPF Urine RBC (Auto) (0-2) /HPF U Epithel Cells (Auto) (FEW) /HPF Urine Bacteria (Auto) (NEGATIVE) /HPF Urine Culture Reflexed (NO) Urine Glucose (NEGATIVE) mg/dL 07/18/18 Range/Units 16:26 WBC (4.0-10.5) K/mm3 RBC (4.1-5.6) M/mm3 Hgb (12.5-18.0) gm/dl Hct (42-50) % MCV (78-100) fl MCH (26-32) pg MCHC (32-36) g/dl RDW (11.5-14.0) % Plt Count (150-450) K/mm3 MPV (6-9.5) fl Gran % (36.0-66.0) % Eos # (Auto) (0-0.5) Absolute Lymphs (auto) (1.0-4.6) Absolute Monos (auto) (0.0-1.3) Lymphocytes % (24.0-44.0) % Monocytes % (0.0-12.0) % Eosinophils % (0.00-5.0) % Basophils % (0.0-0.4) % Absolute Granulocytes (1.4-6.9) Basophils # (0-0.4) PT (8.83-12.87) SECONDS INR (0.8-3.0) Sodium (137-145) mmol/L Potassium (3.5-5.1) mmol/L Chloride (98-107) mmol/L Carbon Dioxide (22-30) mmol/L Anion Gap (5-15) MEQ/L BUN (9-20) mg/dL Creatinine (0.66-1.25) mg/dL Estimated GFR ML/MIN Glucose (74-106) mg/dL Lactic Acid 1.5 (0.4-2.0) Calcium (8.4-10.2) mg/dL Total Bilirubin (0.2-1.3) mg/dL AST (17-59) U/L ALT (0-50) U/L Alkaline Phosphatase (38-126) U/L Troponin I (0.000-0.034) ng/mL Serum Total Protein (6.3-8.2) g/dL Albumin (3.5-5.0) g/dL Lipase (23-300) U/L Urine Color (YELLOW) Urine Appearance (CLEAR) Urine pH (5-6) Ur Specific [place] (1.005-1.025) Urine Protein (Negative) Urine Ketones (NEGATIVE) Urine Blood (0-5) Luis M/ul Urine Nitrite (NEGATIVE) Urine Bilirubin (NEGATIVE) Urine Urobilinogen (0-1) mg/dL Ur Leukocyte Esterase (NEGATIVE) Urine WBC (Auto) (0-5) /HPF Urine RBC (Auto) (0-2) /HPF U Epithel Cells (Auto) (FEW) /HPF Urine Bacteria (Auto) (NEGATIVE) /HPF Urine Culture Reflexed (NO) Urine Glucose (NEGATIVE) mg/dL <JASSI GARCIA - Last Filed: 07/18/18 18:30> - Progress Progress: improved <LAI TOBAR - Last Filed: 07/18/18 22:50> - Progress Progress Note: 07/18/18 18:[address] Tobar at 19:00 (JASSI GARCIA) 07/18/18 21 this patient arrices with complaint of diffuse abdominal pain x Area of swelling this is a 72-year-old white male arrives with complaint of abdominal pain chronically for 2 years patient initially seen by Dr. 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 Physical examination obese white male he is alert oriented x3 head is atraumatic normocephalic. Eyes PERRLA EOMI fundi unremarkable. Ears TMs are intact bilaterally. Nose is clear throat is clear. Neck is supple lungs are clear. Heart regular rate rhythm without murmur abdomen mildly distended firm tender diffusely. Extremities full range of motion pulse equal symmetrical two over four. Neuro cranial nerves II through XII are intact DTRs symmetrical two over four Regina Coma Scale 15. Labs CBC white blood cells 7.6 hemoglobin 17.3 hematocrit 53.0 platelets 186 urinalysis is unremarkable patient's troponin is normal patient's chemistries sodium 138 potassium 4.5 chloride 101 bicarbonate 29 BUN 17 creatinine 0.76 glucose 102 Patient's lactic acid is 1.5 INR is 1.[address] of the abdomen compared to December 02, 2017. New significantly distended urinary bladder with mild bilateral hydroureter and hydronephrosis. Rule out neurogenic bladder versus outlet obstruction. Again moderate diffuse fecal stasis without obstruction. Fatty liver and chronic bony findings Impression 1 abdominal pain 2. Urinary obstruction plan Dinero has been ordered for this patient morphine 4 mg IV has been ordered for this patient Zofran has been ordered for this patient. Will review patient's pain medication profile will consider home with Dinero to gravity and followup with the patient's urologist. Or family . Patient is feeling markedly improved markedly better will discharge patient. Diagnoses 1 abdominal pain. 2 urinary obstruction. 3 hydronephrosis. Will leave the patient's Dinero and patient is to followup with Dr. Thorpe or the urologist of his choice also followup with his family Dr. Dr. connelly Patient has narcotic analgesia at home. 07/18/18 22:48 07/18/18 22:50 (LAI TOBAR) <JASSI GARCIA - Last Filed: 07/18/18 18:30> - Departure Departure Disposition: Home Critical Care Time: No <LAI TOBAR - Last Filed: 07/18/18 22:50> - Departure Clinical Impression: Urinary obstruction Abdominal pain Qualifiers: Abdominal location: generalized Qualified Code(s): R10.84 - Generalized abdominal pain Condition: Fair Referrals: JESSA GARCIA MD [NON-STAFF PHY W/O PRIVILEGES] - Additional Instructions: Return home. Leave Dinero in for now. Followup with Dr. Thorpe call tomorrow for an appointment. Followup with Dr. connelly. Return for acute distress or for severe symptoms.
[2018-07-18] MEDS ORDERED: Sodium Chloride 0.9% 1000 ML 1,000 ML ONE (16:34)
[2018-07-18 16:44] LABS: BASOPHIL % 0.1 % (0.0-0.4); Basophil (Absolute #) 0.01 (0-0.4); Eosinophil % 1.3 % (0.00-5.0); Granulocyte Absolute (ANC) 4.38 (1.4-6.9); Granulocytes % 57.7 % (36.0-66.0); Hemoglobin 17.3 gm/dl (12.5-18.0); Lymphocytes % 27.6 % (24.0-44.0); Mean Cell Volume 92.7 fl (78-100); Mean Corpuscular Hemoglobin 30.2 pg (26-32); Mean Corpuscular Hgb Concent. 32.6 g/dl (32-36); Monocyte (Absolute #) 1.01 (0.0-1.3); Monocytes % 13.3 % (0.0-12.0); Platelet Count 186 K/mm3 (150-450); Red Blood Count 5.72 M/mm3 (4.1-5.6); White Blood Count 7.6 K/mm3 (4.0-10.5)
[2018-07-18 16:49] LABS: INR 1.06 (0.8-3.0); PROTIME 12.3 SECONDS (8.83-12.87)
[2018-07-18 16:56] LABS: ALBUMIN 3.9 g/dL (3.5-5.0); ALKALINE PHOSPHATASE 92 U/L (38-126); BLOOD UREA NITROGEN 17 mg/dL (9-20); CHLORIDE 101 mmol/L (98-107); Calcium 9.7 mg/dL (8.4-10.2); Carbon Dioxide 29 mmol/L (22-30); Creatinine 1 0.76 mg/dL (0.66-1.25); Glucose 102 mg/dL (74-106); LIPASE 277 U/L (23-300); Potassium 4.5 mmol/L (3.5-5.1); SGOT/AST 31 U/L (17-59); SGPT/ALT 30 U/L (0-50); SODIUM 138 mmol/L (137-145); Total Protein 6.9 g/dL (6.3-8.2)
[2018-07-18 17:27] LABS: Appearance CLEAR (CLEAR); Bilirubin NEGATIVE (NEGATIVE); Blood NEGATIVE Ery/ul (0-5); Glucose NEGATIVE (NEGATIVE); Ketones NEGATIVE (NEGATIVE); Leukocyte Esterase NEGATIVE (NEGATIVE); Nitrite NEGATIVE (NEGATIVE); Protein,Urine Dip NEGATIVE (Negative); Specific Gravity 1.008 (1.005-1.025); Urobilinogen NEGATIVE mg/dL (0-1)
[2018-07-18] MEDS ORDERED: MORPHINE SULFATE 4 MG INJ IV ONE (21:30)
[2018-07-18] MEDS ORDERED: Zofran 4 MG/2 ML VIAL IV ONE (21:30)
[2018-07-18] MEDS ORDERED: Zofran 4 MG/2 ML VIAL ONE (21:30)
[2018-07-18] MEDS ORDERED: MORPHINE SULFATE 4 MG INJ ONE (21:31)
[2018-07-18 22:05] VITALS: O2SAT 94
[2018-07-18 23:18] VITALS: BP 161/89; PULSE 90
--- NOTE | 2018-07-19 08:49 | XRAY ---
Indication: Abdomen pain with distention. History of colon cancer 2016. Multiple contiguous axial images obtained through the abdomen and pelvis without contrast as ordered. Comparison: December 03, 2015. Lung bases again demonstrates minimal dependent atelectasis/scarring. No infiltrate or effusion. Heart is not enlarged. Noncontrasted stomach and bowel loops appear nonobstructed. Again moderate diffuse scattered colonic fecal debris throughout including rectum. Intact sigmoid anastomosis. No free fluid/air. Urinary bladder is now significantly distended with mild prominence of both ureters and mild bilateral hydronephrosis. Rule out neurogenic bladder versus outlet obstruction. No perinephric fluid. Stable fatty liver and cholecystectomy. Remaining liver, pancreas, spleen, and adrenal glands appear unremarkable for noncontrast exam. Osseous structures again demonstrates multilevel degenerative spondylosis, degenerative changes of both hips, remote L1 superior endplate fracture, incompletely visualized lower thoracic bilateral spinal rods/pedicle screws, and left lower back spinal stimulator device with leads terminating T12 level. Impression: 1. New significantly distended urinary bladder with subsequent mild bilateral hydronephrosis and hydroureter. Rule out neurogenic bladder versus outlet obstruction. 2. Again diffuse fecal stasis. 3. Stable fatty liver and chronic bony findings. CT DI 26.81
== END 2018-07-19 00:02 | disposition home or self-care (01) ==
LOC: ED 16:20
DX: N13.9 Obstructive and reflux uropathy, unspecified (principal); R10.84 Generalized abdominal pain; N13.30 Unspecified hydronephrosis; I50.9 Heart failure, unspecified; I25.10 Atherosclerotic heart disease of native coronary artery without angina pectoris; E78.00 Pure hypercholesterolemia, unspecified; Z79.899 Other long term (current) drug therapy; Z85.038 Personal history of other malignant neoplasm of large intestine
CPT/HCPCS: 36415; 51701; 51702; 74176; 80053; 81001; 83605; 83690; 84484; 85025; 85610; 87086; 96360; 96374; 96375; 99284; J2270; J2405

== ENCOUNTER 2018-10-09 15:44 | Emergency (ER) | payer MEDICARE, OTHER ==
--- NOTE | 2018-10-09 16:32 | ERPHSYRPT ---
- History of Present Illness Time Seen by Provider: 10/09/18 16:24 Historian: patient, family Exam Limitations: no limitations Patient Subjective Stated Complaint: abdominal pain, abdomen swells daily and then goes back down daily Triage Nursing Assessment: Pt brought to the ER via EMS, vitals wnl, [place], wears hearing aides, paralyzed from the waist down from falling out of a tree 7 years ago, abdomen not swollen at this time, pulses normal, states that his pain is never under a 5 and it is an 8/10 right now Physician History: Patient is 72-year-old male came to the emergency room with complaining of gaseous abdominal distention 5-6 times a day every day for last 1 year. Patient is 72-year-old has has a fall 7 years ago and at that time had a multiple fractures of his thoracic spine for which she has to undergo miladys placement and afterwards patient got paraplegic and L up neurogenic bladder as well as neurogenic colon. Patient has to self catheterize him 4-5 times a day as well as has to undergo digital impaction to remove the hard stool. Patient is also on multiple medication including narcotics pain medication to alleviate his symptoms of pain, as well as patient is on multiple stool softener as well as anti-constipation. Medications. Timing/Duration: week(s) Allergies/Adverse Reactions: No Known Drug Allergies Allergy (Verified 10/09/18 15:45) Home Medications: Ranitidine HCl [Zantac] 150 mg PO BID 05/18/16 [History] Testosterone Cypionate 200 mg IM UD 05/18/16 [History] Venlafaxine HCl [Effexor Xr] 150 mg PO DAILY 05/18/16 [History] Cranberry 15,000 mg PO HS 06/19/16 [History] Multivitamin [Multivitamins] 1 each PO DAILY 06/19/16 [History] Nitroglycerin 0.4 mg SL Q5MIN PRN MR X 3 PRN 06/19/16 [History] Docusate Sodium [Stool Softener] 200 mg PO TID 01/11/17 [History] Fluticasone/Vilanterol [Breo Ellipta 100-25 Mcg INH] 1 each IH UD 01/11/17 [ History] Atorvastatin Calcium [Lipitor] 40 mg PO DAILY 01/18/17 [History] Buprenorphine HCl [Belbuca] 600 mcg BC UD 01/18/17 [History] Isosorbide Mononitrate [Isosorbide Mononitrate ER] 60 mg PO 1800 01/18/17 [ History] Polyethylene Glycol 3350 [Miralax] 17 gm PO DAILY 01/18/17 [History] Pregabalin [Lyrica 150Mg] 150 mg PO BID 01/18/17 [History] Ranolazine 500 MG [Ranexa 500 MG] 500 mg PO BID 01/18/17 [History] Trazodone HCl 50 mg [Desyrel 50 mg] 50 mg PO HS 01/18/17 [History] Losartan Potassium 50 mg PO DAILY 04/03/17 [History] Sennosides 17.2 mg PO HS 04/03/17 [History] Hx Tetanus, Diphtheria Vaccination/Date Given: Yes Hx Influenza Vaccination/Date Given: No Hx Pneumococcal Vaccination/Date Given: No - Review of Systems Constitutional: No Fever, No Chills Eyes: No Symptoms Ears, Nose, & Throat: No Symptoms Respiratory: No Cough, No Dyspnea Cardiac: No Chest Pain, No Edema, No Syncope Abdominal/Gastrointestinal: Constipation, No Abdominal Pain, No Nausea, No Vomiting, No Diarrhea Genitourinary Symptoms: No Dysuria Musculoskeletal: No Back Pain, No Neck Pain Skin: No Rash Neurological: Focal Weakness (traumatic paraplegia), No Dizziness, No Sensory Changes Psychological: No Symptoms Endocrine: No Symptoms All Other Systems: Reviewed and Negative - Past Medical History Pertinent Past Medical History: Yes Neurological History: Paralysis, Other ENT History: No Pertinent History Cardiac History: Angina, Congestive Heart Failure, Coronary Artery Disease, High Cholesterol, Hypertension Respiratory History: Bronchitis Endocrine Medical History: No Pertinent History Musculoskeletal History: Fractures GI Medical History: Colorectal Cancer, GI Bleed History: No Pertinent History Psycho-Social History: No Pertinent History Male Reproductive Disorders: No Pertinent History 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 Left leg operation times 3, COLON CA AND RESECTION IN JAN, 2016 - Social History Smoking Status: Former smoker How long have you smoked: 40 years Exposure to second hand smoke: No Alcohol Use: None Drug Use: none Patient Lives Alone: No Significant Family History: heart disease, diabetes - Nursing Vital Signs Nursing Vital Signs: Initial Vital Signs Temperature 97.8 F 10/09/18 15:46 Pulse Rate 83 10/09/18 15:46 Blood Pressure 144/81 10/09/18 15:46 O2 Sat by Pulse Oximetry 95 10/09/18 15:46 Pain Scale Pain Intensity 8 - Physical Exam General Appearance: no apparent distress, alert Eye Exam: PERRL/EOMI, eyes nml inspection Ears, Nose, Throat Exam: normal ENT inspection, pharynx normal, moist mucous membranes Neck Exam: normal inspection, non-tender, supple, full range of motion Respiratory Exam: normal breath sounds, lungs clear, No respiratory distress Cardiovascular Exam: regular rate/rhythm, normal heart sounds Gastrointestinal/Abdomen Exam: soft, No tenderness, No mass Rectal Exam: decreased tone Back Exam: decreased range of motion, No CVA tenderness, No vertebral tenderness Extremity Exam: normal inspection Neurologic Exam: alert, oriented x 3, cooperative, normal mood/affect, motor deficits, sensory deficit (lower extrimity paraplegia) Skin Exam: normal color, warm, dry SpO2: 95 - Course Nursing assessment & vital signs reviewed: Yes - Progress Progress: unchanged Progress Note: 10/09/18 16:33 I reviewed patient's old records including CAT scan and MRI blood test and surgical intervention. I had a long talk with patient and his , I explain them by his problem),( abdominal gaseous distention ) is due to his neurological problems which includes paraplegia. Patient also has a neurogenic colon as well as neurogenic bladder as well as bilateral hydronephrosis with the multiple stones and also abdominal medications, which is contributing to his present problem. I reviewed patient's all medication list and advised him to distal with the medication at different times during the day. Repeat and instruction given how to give him his all medications. During the daytime. Patient and his understood all instructions. Counseled pt/family regarding: diagnosis, need for follow-up - Departure Departure Disposition: Home Clinical Impression: Paraplegia, Neurogenic bladder, Abdominal distension (gaseous) Condition: Stable Critical Care Time: Yes Critical Care Time(excluding separately billable procedures): 30-74 minutes Referrals: YAYA MORROW [Primary Care Provider] - Instructions: Neurogenic Bowel, Neurogenic Bladder in Adults, Neurogenic Bladder, Adult (DC)
[2018-10-09 16:54] VITALS: BP 152/81; PULSE 81; O2SAT 94
== END 2018-10-09 17:03 | disposition home or self-care (01) ==
LOC: ED 15:44
DX: R14.0 Abdominal distension (gaseous) (principal); N31.9 Neuromuscular dysfunction of bladder, unspecified; G82.20 Paraplegia, unspecified; Z85.038 Personal history of other malignant neoplasm of large intestine; Z90.49 Acquired absence of other specified parts of digestive tract; I50.9 Heart failure, unspecified; E78.00 Pure hypercholesterolemia, unspecified; Z79.899 Other long term (current) drug therapy
CPT/HCPCS: 99283; 99291

== ENCOUNTER 2019-01-05 14:55 | Emergency (ER) | payer MEDICARE, OTHER ==
--- NOTE | 2019-01-05 15:42 | ERPHSYRPT ---
- History of Present Illness Time Seen by Provider: 01/05/19 15:37 Historian: patient, family Exam Limitations: physical impairment, other (paraplegic) Patient Subjective Stated Complaint: "I have pain in the stomach (left upper quad) that radiate to left side, flank, and back. States has nausea. For the past two days". Triage Nursing Assessment: Pt presents to ER with complaints of LUQ abd pains that radiate to left side, flank, and back x 2 days. Pt has nausea, denies v/d. 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 Pt has had BM this morning. Hx of kidney stones and multiple heart issues. EKG done initial due to past cardiac hx. Physician History: Pt is here with c/c of right upper chest pain and nausea. Pt is not short of breath but does have tightness, sharp apin and hot Poker type pain all in the chest. Pt notes that the pain was in the left upper chest then moved to the midepigastric region and then all of the way around. Pt denies palpitations or sweating or dizziness. Pt has had pain like this before. Pt has also had a pain where he thought that he was having a heart attack and it was worse than the pain that he is having today. Timing/Duration: today, intermittent, worse Activities at Onset: rest Location: central, epigastric Chest Pain Radiation: abdomen Severity of Pain-Max: severe Severity of Pain-Current: moderate Associated Symptoms: nausea, abdominal pain Prior Chest Pain/Cardiac Workup: no prior cardiac workup Nitro Today/Relief: no nitro taken today Aspirin Treatment Today: no aspirin today Allergies/Adverse Reactions: No Known Drug Allergies Allergy (Verified 01/05/19 15:31) Home Medications: Testosterone Cypionate 200 mg IM UD 05/18/16 [History] Venlafaxine HCl [Effexor Xr] 150 mg PO DAILY 05/18/16 [History] Cranberry 15,000 mg PO HS 06/19/16 [History] Multivitamin [Multivitamins] 1 each PO DAILY 06/19/16 [History] Docusate Sodium [Stool Softener] 250 mg PO TID 01/11/17 [History] Atorvastatin Calcium [Lipitor] 40 mg PO DAILY 01/18/17 [History] Buprenorphine HCl [Belbuca] 900 mcg BC BID 01/18/17 [History] Isosorbide Mononitrate [Isosorbide Mononitrate ER] 60 mg PO 1800 01/18/17 [ History] Polyethylene Glycol 3350 [Miralax] 17 gm PO DAILY 01/18/17 [History] Ranolazine 500 MG [Ranexa 500 MG] 500 mg PO BID 01/18/17 [History] Trazodone HCl 50 mg [Desyrel 50 mg] 50 mg PO HS 01/18/17 [History] Losartan Potassium 50 mg PO DAILY 04/03/17 [History] Bisacodyl 10 mg [Dulcolax 10 MG SUPP] 10 mg RC UD PRN 10/09/18 [History] L.acidoph,Paracasei, B.lactis [Probiotic] 1 each PO DAILY 10/09/18 [History] Naloxegol Oxalate [Movantik] 25 mg PO DAILY 10/09/18 [History] Oxycodone HCl 10 mg PO UD PRN 10/09/18 [History] Simethicone [Gas Relief] 125 mg PO BID 10/09/18 [History] lamoTRIgine [Lamotrigine] 200 mg PO BID 10/09/18 [History] Sennosides [Senokot] 2 tab PO HS 01/05/19 [History] Hx Tetanus, Diphtheria Vaccination/Date Given: No Hx Influenza Vaccination/Date Given: No Hx Pneumococcal Vaccination/Date Given: No Immunizations Up to Date: No - Review of Systems Constitutional: Other (pain in the left upper abdomen and it migrated to the mid -epigastric region and then to the RUQ and around. Pt has a hx of Thoracic fractures and surgery.) Eyes: No Symptoms Ears, Nose, & Throat: No Symptoms Respiratory: No Symptoms Cardiac: Chest Pain Abdominal/Gastrointestinal: Abdominal Pain, Nausea Genitourinary Symptoms: Other (can not feel the abdomen below the diaphragm) Musculoskeletal: Back Pain Skin: No Symptoms Neurological: Paralysis Psychological: No Symptoms Hematologic/Lymphatic: No Symptoms - Past Medical History Pertinent Past Medical History: Yes Neurological History: Paralysis, Other ENT History: No Pertinent History Cardiac History: Angina, Congestive Heart Failure, Coronary Artery Disease, High Cholesterol, Hypertension Respiratory History: Bronchitis Endocrine Medical History: No Pertinent History Musculoskeletal History: Fractures GI Medical History: Colorectal Cancer, GI Bleed History: No Pertinent History Psycho-Social History: No Pertinent History Male Reproductive Disorders: No Pertinent History 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 Left leg operation times 3, COLON CA AND RESECTION IN JAN, 2016 - Social History Smoking Status: Former smoker How long have you smoked: 40 years Exposure to second hand smoke: No Alcohol Use: None Drug Use: none Patient Lives Alone: No Significant Family History: heart disease, diabetes - Nursing Vital Signs Nursing Vital Signs: Initial Vital Signs Temperature 97.7 F 01/05/19 15:14 Pulse Rate 75 01/05/19 15:14 Respiratory Rate 18 01/05/19 15:14 Blood Pressure 181/85 01/05/19 15:14 O2 Sat by Pulse Oximetry 96 01/05/19 15:14 Pain Scale Pain Intensity 3 - Physical Exam General Appearance: moderate distress, alert Eye Exam: PERRL/EOMI, eyes nml inspection (grossly), No scleral icterus Respiratory Exam: normal breath sounds Cardiovascular Exam: regular rate/rhythm, normal heart sounds, normal peripheral pulses, No murmur, No friction rub, No gallop, No tachycardia Gastrointestinal/Abdomen Exam: soft, normal bowel sounds, tenderness (mild right upper quadrant pain), No distention, No ecchymosis Rectal Exam: not done Back Exam: other (back pain and scar over the bottom 2/3rds of the thoracic spine midline) Extremity Exam: paralysis, No pedal edema, No swelling Neurologic Exam: alert, oriented x 3, cooperative, java manager II-XII nml as tested, No nml station & gait (parapelegic) Skin Exam: normal color, warm, dry, No rash SpO2: 96 O2 Delivery: Room Air - Course Nursing assessment & vital signs reviewed: Yes EKG Interpreted by Me: RATE (72), Sinus Rhythm, NORMAL AXIS, Non-specific ST Changes Ordered Tests: Active Orders 24 hr Category Date Time Status Pulse Oximetry (ED) STAT Care 01/05/19 15:43 Active Re-Check Vital Signs STAT Care 01/05/19 15:43 Active CHEST 1 VIEW (PORTABLE) Stat Exams 01/05/19 15:44 Completed CHEST WITH CONTRAST [CT] Stat Exams 01/05/19 17:16 Taken AMYLASE Stat Lab 01/05/19 15:43 Completed CBC W DIFF Stat Lab 01/05/19 15:43 Completed CK-Creatinine Phosphokinase Stat Lab 01/05/19 15:43 Completed CMP Stat Lab 01/05/19 16:21 Completed CULTURE,URINE Stat Lab 01/05/19 16:45 Received D-DIMER QUANTITATION Stat Lab 01/05/19 15:43 Completed LIPASE Stat Lab 01/05/19 15:43 Completed MAGNESIUM Stat Lab 01/05/19 15:43 Completed TROPONIN Q3H Lab 01/05/19 15:45 Completed TROPONIN Q3H Lab 01/05/19 19:10 Completed TROPONIN Q3H Lab 01/05/19 21:45 Ordered TROPONIN Q3H Lab 01/06/19 00:45 Ordered TROPONIN Q3H Lab 01/06/19 03:45 Ordered UA W/RFX UR CULTURE Stat Lab 01/05/19 16:45 Completed Medication Summary Discontinued Medications Generic Name Dose Route Start Last Admin Trade Name Freq PRN Reason Stop Dose Admin Hydrocodone Bitart/Acetaminophen 1 tab 01/05/19 18:00 01/05/19 18:16 [place] 7.5/325 Mg Tab PO 01/05/19 18:01 1 tab STAT ONE Administration Aspirin 324 mg 01/05/19 15:43 01/05/19 15:58 Baby Aspirin 81 Mg Chew PO 01/05/19 15:44 324 mg STAT ONE Administration Ketorolac Tromethamine 30 mg 01/05/19 17:20 01/05/19 17:30 Toradol 30 Mg Injection IV 01/05/19 17:21 30 mg STAT ONE Administration Ketorolac Tromethamine Confirm 01/05/19 17:29 Toradol 30 Mg Injection Administered 01/05/19 17:30 Dose 30 mg .ROUTE .STK-MED ONE Nitrofurantoin Macrocrystals 100 mg 01/05/19 20:03 01/05/19 20:05 Macrobid 100mg Capsule PO 01/05/19 20:04 100 mg STAT ONE Administration Nitrofurantoin Macrocrystals Confirm 01/05/19 20:04 Macrobid 100mg Capsule Administered 01/05/19 20:05 Dose 100 mg .ROUTE .STK-MED ONE Nitroglycerin 0.4 mg 01/05/19 15:43 01/05/19 15:58 Nitrostat 0.4 Mg (Ed) SL 01/05/19 15:44 0.4 mg STAT ONE Administration Lab/Rad Data: Laboratory Result Diagrams 01/05/19 15:43 01/05/19 16:21 Laboratory Results 01/05/19 01/05/19 01/05/19 Range/Units 19:10 16:45 16:21 WBC (4.0-10.5) K/mm3 RBC (4.1-5.6) M/mm3 Hgb (12.5-18.0) gm/dl Hct (42-50) % MCV (78-100) fl MCH (26-32) pg MCHC (32-36) g/dl RDW (11.5-14.0) % Plt Count (150-450) K/mm3 MPV (6-9.5) fl Gran % (36.0-66.0) % Eos # (Auto) (0-0.5) Absolute Lymphs (auto) (1.0-4.6) Absolute Monos (auto) (0.0-1.3) Lymphocytes % (24.0-44.0) % Monocytes % (0.0-12.0) % Eosinophils % (0.00-5.0) % Basophils % (0.0-0.4) % Absolute Granulocytes (1.4-6.9) Basophils # (0-0.4) D-Dimer (215-500) ng/mL Sodium 140 (137-145) mmol/L Potassium 4.3 (3.5-5.1) mmol/L Chloride 99 (98-107) mmol/L Carbon Dioxide 31 H (22-30) mmol/L Anion Gap 14.6 (5-15) MEQ/L BUN 17 (9-20) mg/dL Creatinine 0.74 (0.66-1.25) mg/dL Estimated GFR > 60.0 ML/MIN Glucose 94 (74-106) mg/dL Calcium 9.8 (8.4-10.2) mg/dL Magnesium (1.6-2.3) mg/dL Total Bilirubin 0.80 (0.2-1.3) mg/dL AST 69 H (17-59) U/L ALT 80 H (0-50) U/L Alkaline Phosphatase 128 H (38-126) U/L Creatine Kinase (55-170) U/L Troponin I < 0.012 (0.000-0.034) ng/mL Serum Total Protein 7.6 (6.3-8.2) g/dL Albumin 4.4 (3.5-5.0) g/dL Amylase (30-110) U/L Lipase (23-300) U/L Urine Color TERRELL (YELLOW) Urine Appearance SLIGHTLY CLOUDY (CLEAR) Urine pH 6.0 (5-6) Ur Specific [place] 1.014 (1.005-1.025) Urine Protein NEGATIVE (Negative) Urine Ketones NEGATIVE (NEGATIVE) Urine Blood NEGATIVE (0-5) Luis M/ul Urine Nitrite POSITIVE (NEGATIVE) Urine Bilirubin NEGATIVE (NEGATIVE) Urine Urobilinogen 2 (0-1) mg/dL Ur Leukocyte Esterase LARGE (NEGATIVE) Urine WBC (Auto) >100 (0-5) /HPF Urine RBC (Auto) NONE (0-2) /HPF U Epithel Cells (Auto) NONE (FEW) /HPF Urine Bacteria (Auto) MODERATE (NEGATIVE) /HPF Urine Culture Reflexed ORDERED SEPARATELY (NO) Urine Glucose NEGATIVE (NEGATIVE) mg/dL 01/05/19 01/05/19 01/05/19 Range/Units 15:45 15:43 15:43 WBC (4.0-10.5) K/mm3 RBC (4.1-5.6) M/mm3 Hgb (12.5-18.0) gm/dl Hct (42-50) % MCV (78-100) fl MCH (26-32) pg MCHC (32-36) g/dl RDW (11.5-14.0) % Plt Count (150-450) K/mm3 MPV (6-9.5) fl Gran % (36.0-66.0) % Eos # (Auto) (0-0.5) Absolute Lymphs (auto) (1.0-4.6) Absolute Monos (auto) (0.0-1.3) Lymphocytes % (24.0-44.0) % Monocytes % (0.0-12.0) % Eosinophils % (0.00-5.0) % Basophils % (0.0-0.4) % Absolute Granulocytes (1.4-6.9) Basophils # (0-0.4) D-Dimer 606 H* (215-500) ng/mL Sodium (137-145) mmol/L Potassium (3.5-5.1) mmol/L Chloride (98-107) mmol/L Carbon Dioxide (22-30) mmol/L Anion Gap (5-15) MEQ/L BUN (9-20) mg/dL Creatinine (0.66-1.25) mg/dL Estimated GFR ML/MIN Glucose (74-106) mg/dL Calcium (8.4-10.2) mg/dL Magnesium 1.9 (1.6-2.3) mg/dL Total Bilirubin (0.2-1.3) mg/dL AST (17-59) U/L ALT (0-50) U/L Alkaline Phosphatase (38-126) U/L Creatine Kinase 108 (55-170) U/L Troponin I < 0.012 (0.000-0.034) ng/mL Serum Total Protein (6.3-8.2) g/dL Albumin (3.5-5.0) g/dL Amylase 162 H (30-110) U/L Lipase 299 (23-300) U/L Urine Color (YELLOW) Urine Appearance (CLEAR) Urine pH (5-6) Ur Specific [place] (1.005-1.025) Urine Protein (Negative) Urine Ketones (NEGATIVE) Urine Blood (0-5) Luis M/ul Urine Nitrite (NEGATIVE) Urine Bilirubin (NEGATIVE) Urine Urobilinogen (0-1) mg/dL Ur Leukocyte Esterase (NEGATIVE) Urine WBC (Auto) (0-5) /HPF Urine RBC (Auto) (0-2) /HPF U Epithel Cells (Auto) (FEW) /HPF Urine Bacteria (Auto) (NEGATIVE) /HPF Urine Culture Reflexed (NO) Urine Glucose (NEGATIVE) mg/dL 01/05/19 Range/Units 15:43 WBC 10.8 H (4.0-10.5) K/mm3 RBC 6.12 H* (4.1-5.6) M/mm3 Hgb 19.3 H (12.5-18.0) gm/dl Hct 57.5 H (42-50) % MCV 94.0 (78-100) fl MCH 31.5 (26-32) pg MCHC 33.6 (32-36) g/dl RDW 15.5 H (11.5-14.0) % Plt Count 189 (150-450) K/mm3 MPV 9.6 H (6-9.5) fl Gran % 71.7 H (36.0-66.0) % Eos # (Auto) 0.13 (0-0.5) Absolute Lymphs (auto) 1.64 (1.0-4.6) Absolute Monos (auto) 1.27 (0.0-1.3) Lymphocytes % 15.2 L (24.0-44.0) % Monocytes % 11.8 (0.0-12.0) % Eosinophils % 1.2 (0.00-5.0) % Basophils % 0.1 (0.0-0.4) % Absolute Granulocytes 7.72 H (1.4-6.9) Basophils # 0.01 (0-0.4) D-Dimer (215-500) ng/mL Sodium (137-145) mmol/L Potassium (3.5-5.1) mmol/L Chloride (98-107) mmol/L Carbon Dioxide (22-30) mmol/L Anion Gap (5-15) MEQ/L BUN (9-20) mg/dL Creatinine (0.66-1.25) mg/dL Estimated GFR ML/MIN Glucose (74-106) mg/dL Calcium (8.4-10.2) mg/dL Magnesium (1.6-2.3) mg/dL Total Bilirubin (0.2-1.3) mg/dL AST (17-59) U/L ALT (0-50) U/L Alkaline Phosphatase (38-126) U/L Creatine Kinase (55-170) U/L Troponin I (0.000-0.034) ng/mL Serum Total Protein (6.3-8.2) g/dL Albumin (3.5-5.0) g/dL Amylase (30-110) U/L Lipase (23-300) U/L Urine Color (YELLOW) Urine Appearance (CLEAR) Urine pH (5-6) Ur Specific [place] (1.005-1.025) Urine Protein (Negative) Urine Ketones (NEGATIVE) Urine Blood (0-5) Luis M/ul Urine Nitrite (NEGATIVE) Urine Bilirubin (NEGATIVE) Urine Urobilinogen (0-1) mg/dL Ur Leukocyte Esterase (NEGATIVE) Urine WBC (Auto) (0-5) /HPF Urine RBC (Auto) (0-2) /HPF U Epithel Cells (Auto) (FEW) /HPF Urine Bacteria (Auto) (NEGATIVE) /HPF Urine Culture Reflexed (NO) Urine Glucose (NEGATIVE) mg/dL - Progress Progress: improved Air Movement: good Blood Culture(s) Obtained: No - Departure Departure Disposition: Home Clinical Impression: Urinary tract infection Condition: Stable Critical Care Time: No Referrals: YAYA MORROW [Primary Care Provider] - Instructions: Urinary Tract Infection, Adult (DC) Additional Instructions: Drink plenty of non-caffienated fluids and take Macrobid as prescribed. Follow up with your primary care doctor to have your urine rechecked in 1 week. Return to the ER with emergent medical problems. May take ketoralac as prescribed for pain. Prescriptions: Ketorolac Tromethamine [Toradol] 10 mg PO Q8H PRN #6 tablet PRN Reason: Moderate Pain Nitrofurantoin Monohyd/M-Cryst [Macrobid 100 mg Capsule] 100 mg PO BID #14 capsule
[2019-01-05] MEDS ORDERED: Nitrostat 0.4 MG (ED) SL ONE (15:43)
[2019-01-05] MEDS ORDERED: BABY ASPIRIN 81 MG CHEW PO ONE (15:43)
[2019-01-05 15:51] LABS: Absolute Neutrophil Ct (ANC) 7.72 (1.4-6.9); BASOPHIL % 0.1 % (0.0-0.4); Basophil (Absolute #) 0.01 (0-0.4); Eosinophil % 1.2 % (0.00-5.0); Eosinophil (Absolute #) 0.13 (0-0.5); Hematocrit 57.5 % (42-50); Hemoglobin 19.3 gm/dl (12.5-18.0); Lymphocyte (Absolute #) 1.64 (1.0-4.6); Lymphocytes % 15.2 % (24.0-44.0); Mean Corpuscular Hemoglobin 31.5 pg (26-32); Mean Corpuscular Hgb Concent. 33.6 g/dl (32-36); Mean Platelet Volume 9.6 fl (6-9.5); Monocyte (Absolute #) 1.27 (0.0-1.3); Monocytes % 11.8 % (0.0-12.0); Neutrophil % 71.7 % (36.0-66.0); Platelet Count 189 K/mm3 (150-450); Red Blood Count 6.12 M/mm3 (4.1-5.6); Red Cell Distribution Width 15.5 % (11.5-14.0); White Blood Count 10.8 K/mm3 (4.0-10.5)
[2019-01-05 15:58] LABS: MAGNESIUM 1.9 mg/dL (1.6-2.3)
--- NOTE | 2019-01-05 16:27 | XRAY ---
Indication: Chest pain. Comparison: December 02, 2017. Portable chest demonstrates new minimal left base discoid atelectasis/scarring with stable left apical calcified granuloma. Remaining lungs are clear. Heart is not enlarged again with CABG surgery. Bony thorax again demonstrates bilateral spinal Elder miladys/pedicle screws. Impression: Nonacute chest with chronic features.
[2019-01-05 16:31] LABS: ALBUMIN 4.4 g/dL (3.5-5.0); ALKALINE PHOSPHATASE 128 U/L (38-126); ANION GAP 14.6 MEQ/L (5-15); BLOOD UREA NITROGEN 17 mg/dL (9-20); CHLORIDE 99 mmol/L (98-107); Calcium 9.8 mg/dL (8.4-10.2); Carbon Dioxide 31 mmol/L (22-30); Creatinine 1 0.74 mg/dL (0.66-1.25); Glucose 94 mg/dL (74-106); Potassium 4.3 mmol/L (3.5-5.1); SGOT/AST 69 U/L (17-59); SGPT/ALT 80 U/L (0-50); SODIUM 140 mmol/L (137-145); Total Protein 7.6 g/dL (6.3-8.2)
[2019-01-05 16:53] LABS: Appearance SLIGHTLY CLOUDY (CLEAR); Bacteria MODERATE /HPF (NEGATIVE); Bilirubin NEGATIVE (NEGATIVE); Blood NEGATIVE Ery/ul (0-5); Glucose NEGATIVE (NEGATIVE); Ketones NEGATIVE (NEGATIVE); Leukocyte Esterase LARGE (NEGATIVE); Nitrite POSITIVE (NEGATIVE); Protein,Urine Dip NEGATIVE (Negative); Specific Gravity 1.014 (1.005-1.025); Urobilinogen 2 mg/dL (0-1); WBC >100 /HPF (0-5)
[2019-01-05] MEDS ORDERED: TORAdol 30 mg Injection IV ONE (17:20)
[2019-01-05] MEDS ORDERED: TORAdol 30 mg Injection ONE (17:29)
[2019-01-05] MEDS ORDERED: NORCO 7.5/325 MG TAB PO ONE (18:00)
[2019-01-05 19:41] VITALS: BP 166/79; PULSE 69
[2019-01-05 20:03] VITALS: O2SAT 96
[2019-01-05] MEDS ORDERED: Macrobid 100MG Capsule PO ONE (20:03)
[2019-01-05] MEDS ORDERED: Macrobid 100MG Capsule ONE (20:04)
--- NOTE | 2019-01-06 08:51 | XRAY ---
Indication: Chest pain. Elevated d-dimer. Multiple contiguous axial images obtained through the chest using 80 cc Isovue 370 contrast and PE protocol. Comparison: July 24, 2017. Again there are bilateral spinal Elder rods/hardware producing beam artifact limiting evaluation for pulmonary embolus. There is good opacification of the pulmonary arteries. No obvious pulmonary embolus. Heart is not enlarged. Aorta remains mildly arteriosclerotic without aneurysm/dissection. No pathologic mediastinal/hilar lymphadenopathy. Lungs are inflated and again clear. Remaining bony thorax again demonstrates sternotomy plate/screws, remote L1 compression fracture, and partially visualized spinal stimulator device/leads. Limited upper abdomen unremarkable. Impression: 1. Pulmonary embolus evaluation again limited due to beam artifact from spinal hardware. No obvious pulmonary embolus. 2. No new/acute cardiopulmonary abnormalities. CT DI 27.66
== END 2019-01-05 20:31 | disposition home or self-care (01) ==
LOC: ED 14:55
DX: N39.0 Urinary tract infection, site not specified (principal); F11.90 Opioid use, unspecified, uncomplicated; Z79.899 Other long term (current) drug therapy; I50.9 Heart failure, unspecified; E78.00 Pure hypercholesterolemia, unspecified; I25.810 Atherosclerosis of coronary artery bypass graft(s) without angina pectoris; I10 Essential (primary) hypertension; Z85.038 Personal history of other malignant neoplasm of large intestine
CPT/HCPCS: 36415; 71045; 71260; 80053; 81001; 82150; 82550; 83690; 83735; 84484; 85025; 85379; 87077; 87086; 87186; 94760; 99284; P9612; J1885; A9270-GY

== ENCOUNTER 2019-01-06 13:50 | Inpatient (IN) | payer MEDICARE, OTHER ==
--- NOTE | 2019-01-06 15:18 | XRAY ---
Indication: Abdomen pain. UTI. Multiple contiguous axial images obtained through the abdomen and pelvis without contrast as ordered. Comparison: December 19, 2018. Again multilevel lower thoracic posterior spinal rods/hardware and left lower back spinal stimulator device/leads produces beam artifact. Lung bases remain grossly clear. Heart is not enlarged. Stomach is now moderately distended with food/fluid. Noncontrasted stomach and bowel loops remain nonobstructed. There remains mild diffuse scattered colonic fecal debris including rectum with little interval clearing in the ascending colon. Stable intact sigmoid anastomosis and cholecystectomy. No free fluid/air. Stable mild fatty liver. Remaining liver, pancreas, spleen, adrenal glands, kidneys, ureters, and bladder appear unremarkable for noncontrast exam. There remains mild scattered aortoiliac calcifications without AAA. Stable small periaortic lymph nodes. Osseous structures again demonstrates moderate degenerative changes throughout the thoracolumbar spine, moderate degenerative changes of both hips, and remote L1 compression deformity. Impression: 1. Again diffuse fecal stasis slightly less than before. 2. Stable fatty liver, small periaortic lymph nodes, and chronic bony findings. 3. Remaining CT abdomen/pelvis without contrast exam is negative. CT DI 23.29
[2019-01-06] MEDS ORDERED: TYLENOL 325 MG PO PRN (15:33)
[2019-01-06] MEDS ORDERED: MILK OF MAGNESIA 30 ML PO PRN (15:34)
[2019-01-06] MEDS ORDERED: Colace 100 MG PO PRN (15:34)
[2019-01-06] MEDS ORDERED: NON-FORMULARY ITEM (Oxycodone Hcl [Oxycodone Hcl] 10 MG) PO PRN (15:35)
[2019-01-06] MEDS ORDERED: Dulcolax 10 MG SUPP RC PRN (15:35)
[2019-01-06] MEDS ORDERED: DEPO-TESTOSTERONE IM SCH (15:45)
[2019-01-06 15:48] LABS: Appearance SLIGHTLY CLOUDY (CLEAR); Bacteria MODERATE /HPF (NEGATIVE); Bilirubin NEGATIVE (NEGATIVE); Blood NEGATIVE Ery/ul (0-5); Glucose >=500 mg/dL (NEGATIVE); Ketones NEGATIVE (NEGATIVE); Leukocyte Esterase LARGE (NEGATIVE); Nitrite NEGATIVE (NEGATIVE); Protein,Urine Dip NEGATIVE (Negative); RBC 0-2 /HPF (0-2); Urobilinogen NEGATIVE mg/dL (0-1); WBC 26-50 /HPF (0-5)
[2019-01-06] MEDS ORDERED: MEDICATION INTERVENTION PO SCH ×2 (16:00)
[2019-01-06] MEDS ORDERED: MEDICATION INTERVENTION MC SCH ×2 (16:00)
[2019-01-06 16:08] LABS: BASOPHIL % 0.2 % (0.0-0.4); Basophil (Absolute #) 0.02 (0-0.4); Eosinophil % 1.2 % (0.00-5.0); Eosinophil (Absolute #) 0.13 (0-0.5); Hematocrit 53.4 % (42-50); Hemoglobin 18.1 gm/dl (12.5-18.0); Lymphocyte (Absolute #) 1.36 (1.0-4.6); Lymphocytes % 12.7 % (24.0-44.0); Mean Corpuscular Hgb Concent. 33.9 g/dl (32-36); Mean Platelet Volume 9.7 fl (6-9.5); Monocytes % 12.1 % (0.0-12.0); Neutrophil % 73.8 % (36.0-66.0); Platelet Count 168 K/mm3 (150-450); Red Blood Count 5.68 M/mm3 (4.1-5.6); White Blood Count 10.7 K/mm3 (4.0-10.5)
[2019-01-06 16:10] LABS: Mean Corpuscular Hemoglobin 31.8 pg (26-32)
[2019-01-06 16:14] LABS: INR 1.05 (0.8-3.0); PROTIME 11.9 SECONDS (8.83-12.87)
[2019-01-06 16:18] LABS: ALKALINE PHOSPHATASE 112 U/L (38-126); AMYLASE 130 U/L (30-110); ANION GAP 13.7 MEQ/L (5-15); BLOOD UREA NITROGEN 13 mg/dL (9-20); CHLORIDE 99 mmol/L (98-107); Calcium 9.2 mg/dL (8.4-10.2); Carbon Dioxide 28 mmol/L (22-30); Creatinine 1 0.59 mg/dL (0.66-1.25); Glucose 148 mg/dL (74-106); LIPASE 231 U/L (23-300); Potassium 4.2 mmol/L (3.5-5.1); SGOT/AST 29 U/L (17-59); SGPT/ALT 49 U/L (0-50); SODIUM 137 mmol/L (137-145)
[2019-01-06] MEDS: DILAUDID 2 MG INJECTION IV PRN ×2 (16:21→18:28)
[2019-01-06] MEDS: SENOKOT 8.6 MG PO SCH (16:29)
[2019-01-06] MEDS: ZOCOR 20MG PO SCH (16:30)
[2019-01-06] MEDS: Acidophilus TABLET PO SCH (16:30)
[2019-01-06] MEDS: Effexor XR 75 MG PO SCH (16:30)
[2019-01-06] MEDS: PLAVIX 75 MG Tablet PO SCH (16:38)
[2019-01-06] MEDS: Sodium Chloride 0.9% 1000 ML 1,000 ML IV SCH (16:38)
[2019-01-06] MEDS: Imdur 60MG PO SCH (16:38)
[2019-01-06] MEDS: ROCEPHIN 1 Gm-D5w 50 ml Bag** 1 G/50 ML IVPB IV SCH (16:39)
[2019-01-06] MEDS ORDERED: NON-FORMULARY ITEM (L.Acidoph,Paracasei, B.Lactis [Probiotic] 1 EACH) PO SCH (17:00)
[2019-01-06] MEDS ORDERED: CRANBERRY 15000 MG PO SCH (17:00)
[2019-01-06] MEDS ORDERED: NON-FORMULARY ITEM (Venlafaxine Hcl [Effexor Xr] 150 MG) PO SCH (17:00)
[2019-01-06] MEDS ORDERED: NON-FORMULARY ITEM (Atorvastatin Calcium [Lipitor] 40 MG) PO SCH (17:00)
[2019-01-06] MEDS: DESYREL 50 MG PO SCH (20:43)
[2019-01-06] MEDS: Colace 100 MG PO SCH (20:43)
[2019-01-06] MEDS: lamICTAL 100MG TABLET PO SCH ×2 (20:44→20:50)
[2019-01-06] MEDS: Mylicon 80MG PO SCH (20:44)
[2019-01-06] MEDS: Oxy-IR 5 MG PO PRN (20:45)
[2019-01-06] MEDS: Protonix 40MG Tablet PO SCH (20:46)
[2019-01-06] MEDS: Ranexa 500 MG PO SCH (20:46)
[2019-01-06] MEDS ORDERED: SIMETHICONE 125 MG PO SCH (22:00)
[2019-01-06] MEDS ORDERED: DOCUSATE SODIUM 250 MG PO SCH (22:00)
[2019-01-06] MEDS ORDERED: BUPRENORPHINE HCL 900 MCG BC SCH (22:00)
[2019-01-06] MEDS ORDERED: LAMOTRIGINE 200 MG PO SCH (22:00)
[2019-01-07] MEDS: Sodium Chloride 0.9% 1000 ML 1,000 ML IV SCH ×2 (05:41→18:40)
[2019-01-07] MEDS: Cozaar 50 MG PO SCH (09:25)
[2019-01-07] MEDS: Lyrica 50MG PO SCH ×3 (09:25→21:47)
[2019-01-07] MEDS: THERAGRAN MULTIVITAMIN PO SCH (09:25)
[2019-01-07] MEDS: Colace 100 MG PO SCH ×3 (09:25→21:47)
[2019-01-07] MEDS: Miralax Powder 17GM PACKET PO SCH (09:25)
[2019-01-07] MEDS: ROCEPHIN 1 Gm-D5w 50 ml Bag** 1 G/50 ML IVPB IV SCH (09:25)
[2019-01-07] MEDS: ECOTRIN 81 MG PO SCH (09:27)
[2019-01-07] MEDS: Ranexa 500 MG PO SCH ×2 (09:27→21:47)
[2019-01-07] MEDS: Toprol Xl 50 MG PO SCH (09:27)
[2019-01-07] MEDS: Mylicon 80MG PO SCH ×2 (09:27→21:47)
[2019-01-07] MEDS: lamICTAL 100MG TABLET PO SCH ×2 (09:28→21:48)
[2019-01-07] MEDS ORDERED: NON-FORMULARY ITEM (Multivitamin [Multivitamins] 1 EACH) PO SCH (10:00)
[2019-01-07] MEDS ORDERED: NON-FORMULARY ITEM (Naloxegol Oxalate [Movantik] 25 MG) PO SCH (10:00)
[2019-01-07] MEDS: PATIENT OWN MEDICATION PO SCH (10:22)
[2019-01-07] MEDS: DILAUDID 2 MG INJECTION IV PRN ×3 (10:27→23:04)
[2019-01-07] MEDS: PLAVIX 75 MG Tablet PO SCH (11:58)
[2019-01-07] MEDS: Imdur 60MG PO SCH (11:58)
--- NOTE | 2019-01-07 13:32 | PCM.HP ---
History of Present Illness - Chief Complaint Chief Complaint: UTI, Abdominal Pain History of Present Illness: is a 73 year old male. Medications & Allergies Home Medications: Home Medication List Testosterone Cypionate 200 mg IM UD 05/18/16 [History Confirmed 01/06/19] Venlafaxine HCl [Effexor Xr] 150 mg PO DINNER 05/18/16 [History Confirmed ] Cranberry 15,000 mg PO DINNER 06/19/16 [History Confirmed 01/06/19] Multivitamin [Multivitamins] 1 each PO QAM 06/19/16 [History Confirmed 01/06/19] Docusate Sodium [Stool Softener] 250 mg PO TID 01/11/17 [History Confirmed 01/06] Atorvastatin Calcium [Lipitor] 40 mg PO DINNER 01/18/17 [History Confirmed 01/06] Buprenorphine HCl [Belbuca] 900 mcg BC BID 01/18/17 [History Confirmed 01/06/19] Isosorbide Mononitrate [Isosorbide Mononitrate ER] 60 mg PO LUNCH 01/18/17 [ History Confirmed 01/06/19] Polyethylene Glycol 3350 [Miralax] 17 gm PO QAM 01/18/17 [History Confirmed ] Ranolazine 500 MG [Ranexa 500 MG] 500 mg PO BID 01/18/17 [History Confirmed 01/06/19] Trazodone HCl 50 mg [Desyrel 50 mg] 50 mg PO HS 01/18/17 [History Confirmed 01/06/19] Losartan Potassium 50 mg PO QAM 04/03/17 [History Confirmed 01/06/19] Bisacodyl 10 mg [Dulcolax 10 MG SUPP] 10 mg RC DAILY PRN PRN 10/09/18 [ History Confirmed 01/06/19] L.acidoph,Paracasei, B.lactis [Probiotic] 1 each PO DINNER 10/09/18 [History Confirmed 01/06/19] Naloxegol Oxalate [Movantik] 25 mg PO QAM 10/09/18 [History Confirmed 01/06/19] Oxycodone HCl 10 mg PO QIDPRN PRN 10/09/18 [History Confirmed 01/06/19] Simethicone [Gas Relief] 125 mg PO BID 10/09/18 [History Confirmed 01/06/19] lamoTRIgine [Lamotrigine] 200 mg PO BID 10/09/18 [History Confirmed 01/06/19] Sennosides [Senokot] 2 tab PO DINNER 01/05/19 [History Confirmed 01/06/19] Aspirin [Aspirin EC] 81 mg PO QAM 01/06/19 [History Confirmed 01/06/19] Clopidogrel Bisulfate 75 mg [PLAVIX 75 MG Tablet] 75 mg PO LUNCH 01/06/19 [History Confirmed 01/06/19] Metoprolol Succinate 50 mg [Toprol Xl 50 MG] 50 mg PO QAM 01/06/19 [ History Confirmed 01/06/19] PANTOPRAZOLE 40 mg Tablet [Protonix 40MG Tablet] 40 mg PO HS 01/06/19 [ History Confirmed 01/06/19] Allergies/Adverse Reactions: Allergies Allergy/AdvReac Type Severity Reaction Status Date / Time No Known Drug Allergies Allergy Verified 01/06/19 14:30 - Past Medical History Past Medical History: Yes Neurological History: Paralysis, Other ENT History: No Pertinent History Cardiac History: Angina, Congestive Heart Failure, Coronary Artery Disease, High Cholesterol, Hypertension Respiratory History: Bronchitis Endocrine Medical History: No Pertinent History Musculoskelatal History: Fractures GI Medical History: Colorectal Cancer, GI Bleed History: No Pertinent History Pyscho-Social History: No Pertinent History Male Reproductive Disorders: No Pertinent History 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 Left leg operation times 3, COLON CA AND RESECTION IN JAN, 2016 - Social History Smoking Status: Never smoker How long have you smoked: 40 years Exposure to second hand smoke: No Alcohol: Occasionally Drug Use: none Significant Family History: heart disease, diabetes - Physical Exam Vital Signs: Vital Signs - 24 hr Temp Pulse Resp BP Pulse Ox 01/07/19 12:50 98 F 86 20 178/80 96 01/07/19 07:27 97.8 F 66 20 170/81 96 01/07/19 04:00 97.7 F 73 20 129/64 94 L 01/07/19 00:21 98.0 F 78 18 138/66 93 L 01/06/19 20:00 98.7 F 86 20 176/83 93 L 01/06/19 17:20 98.0 F 78 20 191/88 96 Results - Labs Lab/Micro Results: Lab Results-Last 24 Hours 01/06/19 01/06/19 01/06/19 Range/Units 15:28 16:00 16:00 WBC 10.7 H (4.0-10.5) K/mm3 RBC 5.68 H (4.1-5.6) M/mm3 Hgb 18.1 H (12.5-18.0) gm/dl Hct 53.4 H (42-50) % MCV 94.0 (78-100) fl MCH 31.8 (26-32) pg MCHC 33.9 (32-36) g/dl RDW 15.0 H (11.5-14.0) % Plt Count 168 (150-450) K/mm3 MPV 9.7 H (6-9.5) fl Gran % 73.8 H (36.0-66.0) % Eos # (Auto) 0.13 (0-0.5) Absolute Lymphs (auto) 1.36 (1.0-4.6) Absolute Monos (auto) 1.30 (0.0-1.3) Lymphocytes % 12.7 L (24.0-44.0) % Monocytes % 12.1 H (0.0-12.0) % Eosinophils % 1.2 (0.00-5.0) % Basophils % 0.2 (0.0-0.4) % Absolute Granulocytes 7.90 H (1.4-6.9) Basophils # 0.02 (0-0.4) PT (8.83-12.87) SECONDS INR (0.8-3.0) Sodium 137 (137-145) mmol/L Potassium 4.2 (3.5-5.1) mmol/L Chloride 99 (98-107) mmol/L Carbon Dioxide 28 (22-30) mmol/L Anion Gap 13.7 (5-15) MEQ/L BUN 13 (9-20) mg/dL Creatinine 0.59 L (0.66-1.25) mg/dL Estimated GFR > 60.0 ML/MIN Glucose 148 H (74-106) mg/dL Calcium 9.2 (8.4-10.2) mg/dL Total Bilirubin 0.60 (0.2-1.3) mg/dL AST 29 (17-59) U/L ALT 49 (0-50) U/L Alkaline Phosphatase 112 (38-126) U/L Serum Total Protein 7.0 (6.3-8.2) g/dL Albumin 4.0 (3.5-5.0) g/dL Amylase 130 H (30-110) U/L Lipase 231 (23-300) U/L Urine Color YELLOW (YELLOW) Urine Appearance SLIGHTLY CLOUDY (CLEAR) Urine pH 6.0 (5-6) Ur Specific [place] 1.010 (1.005-1.025) Urine Protein NEGATIVE (Negative) Urine Ketones NEGATIVE (NEGATIVE) Urine Blood NEGATIVE (0-5) Luis M/ul Urine Nitrite NEGATIVE (NEGATIVE) Urine Bilirubin NEGATIVE (NEGATIVE) Urine Urobilinogen NEGATIVE (0-1) mg/dL Ur Leukocyte Esterase LARGE (NEGATIVE) Urine WBC (Auto) 26-50 (0-5) /HPF Urine RBC (Auto) 0-2 (0-2) /HPF U Epithel Cells (Auto) NONE (FEW) /HPF Urine Bacteria (Auto) MODERATE (NEGATIVE) /HPF Urine Culture Reflexed YES (NO) Urine Glucose >=500 (NEGATIVE) mg/dL 01/06/19 Range/Units 16:00 WBC (4.0-10.5) K/mm3 RBC (4.1-5.6) M/mm3 Hgb (12.5-18.0) gm/dl Hct (42-50) % MCV (78-100) fl MCH (26-32) pg MCHC (32-36) g/dl RDW (11.5-14.0) % Plt Count (150-450) K/mm3 MPV (6-9.5) fl Gran % (36.0-66.0) % Eos # (Auto) (0-0.5) Absolute Lymphs (auto) (1.0-4.6) Absolute Monos (auto) (0.0-1.3) Lymphocytes % (24.0-44.0) % Monocytes % (0.0-12.0) % Eosinophils % (0.00-5.0) % Basophils % (0.0-0.4) % Absolute Granulocytes (1.4-6.9) Basophils # (0-0.4) PT 11.9 (8.83-12.87) SECONDS INR 1.05 (0.8-3.0) Sodium (137-145) mmol/L Potassium (3.5-5.1) mmol/L Chloride (98-107) mmol/L Carbon Dioxide (22-30) mmol/L Anion Gap (5-15) MEQ/L BUN (9-20) mg/dL Creatinine (0.66-1.25) mg/dL Estimated GFR ML/MIN Glucose (74-106) mg/dL Calcium (8.4-10.2) mg/dL Total Bilirubin (0.2-1.3) mg/dL AST (17-59) U/L ALT (0-50) U/L Alkaline Phosphatase (38-126) U/L Serum Total Protein (6.3-8.2) g/dL Albumin (3.5-5.0) g/dL Amylase (30-110) U/L Lipase (23-300) U/L Urine Color (YELLOW) Urine Appearance (CLEAR) Urine pH (5-6) Ur Specific [place] (1.005-1.025) Urine Protein (Negative) Urine Ketones (NEGATIVE) Urine Blood (0-5) Luis M/ul Urine Nitrite (NEGATIVE) Urine Bilirubin (NEGATIVE) Urine Urobilinogen (0-1) mg/dL Ur Leukocyte Esterase (NEGATIVE) Urine WBC (Auto) (0-5) /HPF Urine RBC (Auto) (0-2) /HPF U Epithel Cells (Auto) (FEW) /HPF Urine Bacteria (Auto) (NEGATIVE) /HPF Urine Culture Reflexed (NO) Urine Glucose (NEGATIVE) mg/dL - Radiology Impressions Radiology Exams & Impressions: Radiology Procedures Category Date Time Status ABDOMEN AND PELVIS W/0 CONTRAS [CT] Routine Exams 01/06/19 14:30 Completed
--- NOTE | 2019-01-07 13:52 | PCM.NOTE ---
Date and Time: 01/07/19 7888 Subjective Assessment: 73 yr old seen and examined this am. Patient reports that he is still having left sided lateral abdominal pain. Patient's reports he has a stimulator in that area. She reports that patient is no longer using it. She states that she believes it has shifted from its original location. Patient's also states he has had surgery to cut nerve in this area. It gave him some pain relief but they were warned that the nerve could grow back together. Patient reports that at times he feels like he wants to give up because of all the pain he is having. straight caths patient at home. - Review of Systems Constitutional: No Fever Eyes: No Vision Changes Ears, Nose, & Throat: No Nose Congestion Respiratory: No Cough, No Short Of Breath Cardiac: No Chest Pain, No Edema Abdominal/Gastrointestinal: Abdominal Pain, No Nausea, No Vomiting, No Diarrhea , No Constipation Genitourinary Symptoms: Other (Patient gets straight cathed) Musculoskeletal: Back Pain, Other (lower extremity muscle wasting) Skin: No Cellulitis Neurological: Other (paraplegia), No Headache Psychological: Depression Objective Exam General Appearance: moderate distress Neurologic Exam: alert, oriented x 3, motor deficits, other (Labile with depressed mood. Patient is hard of hearing and wears bilateral hearing aides) Skin Exam: normal color, warm, dry, No rash Eye Exam: eyes nml inspection Ears, Nose, Throat Exam: moist mucous membranes Neck Exam: normal inspection Respiratory Exam: normal breath sounds, lungs clear, No respiratory distress Cardiovascular Exam: regular rate/rhythm, normal heart sounds, No murmur Gastrointestinal/Abdomen Exam: soft, normal bowel sounds, tenderness (Patient's tenderness on physical exam this am was directly over his stimulator located on left lateral upper abdomen. The rest of his abdominal exam was fairly benign) Extremity Exam: paralysis (lower extremities), limited range of motion, other ( Lower extremity muscle wasting), No pedal edema OBJECTIVE DATA Vital Signs: Vital Signs - 24 hr Temp Pulse Resp BP Pulse Ox 01/07/19 12:50 98 F 86 20 178/80 96 01/07/19 07:27 97.8 F 66 20 170/81 96 01/07/19 04:00 97.7 F 73 20 129/64 94 L 01/07/19 00:21 98.0 F 78 18 138/66 93 L 01/06/19 20:00 98.7 F 86 20 176/83 93 L 01/06/19 17:20 98.0 F 78 20 191/88 96 Pain Assessment - Last Documented Pain Intensity 3 Pain Scale Used 0-10 Pain Scale Intake and Output: Intake & Output 01/05/19 01/06/19 01/07/19 01/08/19 11:59 11:59 11:59 11:59 Intake Total 1270 Output Total 3075 Balance -1805 Weight 95.2 kg Lab Results: Lab Results-Last 24 Hours 01/06/19 01/06/19 01/06/19 Range/Units 15:28 16:00 16:00 WBC 10.7 H (4.0-10.5) K/mm3 RBC 5.68 H (4.1-5.6) M/mm3 Hgb 18.1 H (12.5-18.0) gm/dl Hct 53.4 H (42-50) % MCV 94.0 (78-100) fl MCH 31.8 (26-32) pg MCHC 33.9 (32-36) g/dl RDW 15.0 H (11.5-14.0) % Plt Count 168 (150-450) K/mm3 MPV 9.7 H (6-9.5) fl Gran % 73.8 H (36.0-66.0) % Eos # (Auto) 0.13 (0-0.5) Absolute Lymphs (auto) 1.36 (1.0-4.6) Absolute Monos (auto) 1.30 (0.0-1.3) Lymphocytes % 12.7 L (24.0-44.0) % Monocytes % 12.1 H (0.0-12.0) % Eosinophils % 1.2 (0.00-5.0) % Basophils % 0.2 (0.0-0.4) % Absolute Granulocytes 7.90 H (1.4-6.9) Basophils # 0.02 (0-0.4) PT (8.83-12.87) SECONDS INR (0.8-3.0) Sodium 137 (137-145) mmol/L Potassium 4.2 (3.5-5.1) mmol/L Chloride 99 (98-107) mmol/L Carbon Dioxide 28 (22-30) mmol/L Anion Gap 13.7 (5-15) MEQ/L BUN 13 (9-20) mg/dL Creatinine 0.59 L (0.66-1.25) mg/dL Estimated GFR > 60.0 ML/MIN Glucose 148 H (74-106) mg/dL Calcium 9.2 (8.4-10.2) mg/dL Total Bilirubin 0.60 (0.2-1.3) mg/dL AST 29 (17-59) U/L ALT 49 (0-50) U/L Alkaline Phosphatase 112 (38-126) U/L Serum Total Protein 7.0 (6.3-8.2) g/dL Albumin 4.0 (3.5-5.0) g/dL Amylase 130 H (30-110) U/L Lipase 231 (23-300) U/L Urine Color YELLOW (YELLOW) Urine Appearance SLIGHTLY CLOUDY (CLEAR) Urine pH 6.0 (5-6) Ur Specific [place] 1.010 (1.005-1.025) Urine Protein NEGATIVE (Negative) Urine Ketones NEGATIVE (NEGATIVE) Urine Blood NEGATIVE (0-5) Luis M/ul Urine Nitrite NEGATIVE (NEGATIVE) Urine Bilirubin NEGATIVE (NEGATIVE) Urine Urobilinogen NEGATIVE (0-1) mg/dL Ur Leukocyte Esterase LARGE (NEGATIVE) Urine WBC (Auto) 26-50 (0-5) /HPF Urine RBC (Auto) 0-2 (0-2) /HPF U Epithel Cells (Auto) NONE (FEW) /HPF Urine Bacteria (Auto) MODERATE (NEGATIVE) /HPF Urine Culture Reflexed YES (NO) Urine Glucose >=500 (NEGATIVE) mg/dL 01/06/19 Range/Units 16:00 WBC (4.0-10.5) K/mm3 RBC (4.1-5.6) M/mm3 Hgb (12.5-18.0) gm/dl Hct (42-50) % MCV (78-100) fl MCH (26-32) pg MCHC (32-36) g/dl RDW (11.5-14.0) % Plt Count (150-450) K/mm3 MPV (6-9.5) fl Gran % (36.0-66.0) % Eos # (Auto) (0-0.5) Absolute Lymphs (auto) (1.0-4.6) Absolute Monos (auto) (0.0-1.3) Lymphocytes % (24.0-44.0) % Monocytes % (0.0-12.0) % Eosinophils % (0.00-5.0) % Basophils % (0.0-0.4) % Absolute Granulocytes (1.4-6.9) Basophils # (0-0.4) PT 11.9 (8.83-12.87) SECONDS INR 1.05 (0.8-3.0) Sodium (137-145) mmol/L Potassium (3.5-5.1) mmol/L Chloride (98-107) mmol/L Carbon Dioxide (22-30) mmol/L Anion Gap (5-15) MEQ/L BUN (9-20) mg/dL Creatinine (0.66-1.25) mg/dL Estimated GFR ML/MIN Glucose (74-106) mg/dL Calcium (8.4-10.2) mg/dL Total Bilirubin (0.2-1.3) mg/dL AST (17-59) U/L ALT (0-50) U/L Alkaline Phosphatase (38-126) U/L Serum Total Protein (6.3-8.2) g/dL Albumin (3.5-5.0) g/dL Amylase (30-110) U/L Lipase (23-300) U/L Urine Color (YELLOW) Urine Appearance (CLEAR) Urine pH (5-6) Ur Specific [place] (1.005-1.025) Urine Protein (Negative) Urine Ketones (NEGATIVE) Urine Blood (0-5) Luis M/ul Urine Nitrite (NEGATIVE) Urine Bilirubin (NEGATIVE) Urine Urobilinogen (0-1) mg/dL Ur Leukocyte Esterase (NEGATIVE) Urine WBC (Auto) (0-5) /HPF Urine RBC (Auto) (0-2) /HPF U Epithel Cells (Auto) (FEW) /HPF Urine Bacteria (Auto) (NEGATIVE) /HPF Urine Culture Reflexed (NO) Urine Glucose (NEGATIVE) mg/dL Radiology Exams: Radiology Procedures Category Date Time Status ABDOMEN AND PELVIS W/0 CONTRAS [CT] Routine Exams 01/06/19 14:30 Completed Assessment/Plan (1) Abdominal pain Current Visit: No Status: Acute Assessment & Plan: Patient is point tender over his stimulator. is reporting that she believes it has shifted position. Patient will likely need device interrogated or removed if that is the cause of his pain. Patient was started on Lyrica for suspected nerve pain. This appears to have been an issue in the past for the patient and thinks that neurotin and lyrica have been tried in the past for his nerve pain. Unsure if this is CVA tenderness radiating to lateral side or related to this stimulator. Code(s): R10.9 - UNSPECIFIED ABDOMINAL PAIN (2) Essential hypertension Current Visit: No Status: Acute Assessment & Plan: Patient has hx of HTN. Patient's bp has been elevated in hospital. Will continue on home medications for bp. Will address his pain that could be causing elevated bp. Code(s): I10 - ESSENTIAL (PRIMARY) HYPERTENSION (3) UTI (urinary tract infection) Current Visit: No Status: Acute Assessment & Plan: Patient is currently on rocephin. Cultures still pending. Will follow up on cultures and adjust if necessary. Code(s): N39.0 - URINARY TRACT INFECTION, SITE NOT SPECIFIED (4) Chronic pain syndrome Current Visit: No Status: Chronic Assessment & Plan: Patient has been seeing Dr Kolb. He still has been experiencing a lot of pain even on current regimen. Patient's reports that Dr Kolb is making some medication changes at this time. I started Lyrica for some neuropathic pain however this may not be a longterm medication for this patient. We will see if patient notices any improvement and then refer back to Dr Kolb for recs. Code(s): G89.4 - CHRONIC PAIN SYNDROME (5) Neurogenic bladder Current Visit: No Status: Chronic Assessment & Plan: Will continue with routine straight cath. Code(s): N31.9 - NEUROMUSCULAR DYSFUNCTION OF BLADDER, UNSPECIFIED
[2019-01-07 14:58] LABS: Absolute Neutrophil Ct (ANC) 5.04 (1.4-6.9); BASOPHIL % 0.3 % (0.0-0.4); Basophil (Absolute #) 0.02 (0-0.4); Eosinophil % 1.9 % (0.00-5.0); Eosinophil (Absolute #) 0.13 (0-0.5); Hematocrit 52.4 % (42-50); Hemoglobin 17.2 gm/dl (12.5-18.0); Lymphocyte (Absolute #) 0.94 (1.0-4.6); Lymphocytes % 13.5 % (24.0-44.0); Mean Corpuscular Hemoglobin 31.5 pg (26-32); Mean Corpuscular Hgb Concent. 32.8 g/dl (32-36); Mean Platelet Volume 9.8 fl (6-9.5); Monocyte (Absolute #) 0.84 (0.0-1.3); Monocytes % 12.1 % (0.0-12.0); Neutrophil % 72.2 % (36.0-66.0); Platelet Count 138 K/mm3 (150-450); Red Blood Count 5.46 M/mm3 (4.1-5.6); Red Cell Distribution Width 15.3 % (11.5-14.0)
[2019-01-07 15:25] LABS: ANION GAP 13.4 MEQ/L (5-15); BLOOD UREA NITROGEN 13 mg/dL (9-20); CHLORIDE 102 mmol/L (98-107); Calcium 8.9 mg/dL (8.4-10.2); Carbon Dioxide 28 mmol/L (22-30); Creatinine 1 0.61 mg/dL (0.66-1.25); Glucose 131 mg/dL (74-106); Potassium 4.1 mmol/L (3.5-5.1); SODIUM 140 mmol/L (137-145)
[2019-01-07] MEDS: Acidophilus TABLET PO SCH (17:34)
[2019-01-07] MEDS: Effexor XR 75 MG PO SCH (17:34)
[2019-01-07] MEDS: ZOCOR 20MG PO SCH (17:34)
[2019-01-07] MEDS: SENOKOT 8.6 MG PO SCH (17:34)
[2019-01-07] MEDS: DESYREL 50 MG PO SCH (21:47)
[2019-01-07] MEDS: Oxy-IR 5 MG PO PRN (21:47)
[2019-01-07] MEDS: Protonix 40MG Tablet PO SCH (21:47)
[2019-01-08] MEDS: Sodium Chloride 0.9% 1000 ML 1,000 ML IV SCH ×2 (07:44→21:49)
[2019-01-08] MEDS: Apresoline 25 MG TABLET PO PRN ×2 (07:50→21:39)
[2019-01-08] MEDS: Miralax Powder 17GM PACKET PO SCH (09:08)
[2019-01-08] MEDS: THERAGRAN MULTIVITAMIN PO SCH (09:08)
[2019-01-08] MEDS: Colace 100 MG PO SCH ×3 (09:08→21:36)
[2019-01-08] MEDS: ECOTRIN 81 MG PO SCH (09:08)
[2019-01-08] MEDS: Ranexa 500 MG PO SCH ×2 (09:08→21:39)
[2019-01-08] MEDS: Cozaar 50 MG PO SCH ×2 (09:09→21:37)
[2019-01-08] MEDS: Lyrica 50MG PO SCH ×3 (09:09→21:38)
[2019-01-08] MEDS: Mylicon 80MG PO SCH ×2 (09:09→21:38)
[2019-01-08] MEDS: Toprol Xl 50 MG PO SCH (09:09)
[2019-01-08] MEDS: PATIENT OWN MEDICATION PO SCH (09:09)
[2019-01-08] MEDS: ROCEPHIN 1 Gm-D5w 50 ml Bag** 1 G/50 ML IVPB IV SCH (09:19)
[2019-01-08] MEDS: lamICTAL 100MG TABLET PO SCH ×2 (09:46→21:37)
[2019-01-08] MEDS: Imdur 60MG PO SCH (11:59)
[2019-01-08] MEDS: PLAVIX 75 MG Tablet PO SCH (11:59)
[2019-01-08] MEDS: Oxy-IR 5 MG PO PRN ×2 (12:00→21:40)
--- NOTE | 2019-01-08 12:56 | PCM.NOTE ---
Date and Time: 01/08/19 1251 Subjective Assessment: 73 yr old male seen and examined this am. Patient reports is pain is better this am. He reports his natural pain progression is that his pain gets worse in the afternoon evening time. Patient reports he still has tenderness over the left lateral chest area where the stimulator is located. Patient reports some diffuse abdominal pain that his not really present at this time. No other reported concerns this am. - Review of Systems Constitutional: No Fever Eyes: No Vision Changes Ears, Nose, & Throat: Other (hard of hearing wears hearing aides ) Respiratory: No Cough, No Short Of Breath Cardiac: No Chest Pain, No Edema, No Palpitations Abdominal/Gastrointestinal: Abdominal Pain, Constipation, No Nausea, No Vomiting , No Diarrhea Genitourinary Symptoms: Other (Patient gets straight cathed) Musculoskeletal: Back Pain Skin: No Symptoms Neurological: Paralysis Psychological: Depression Objective Exam General Appearance: no apparent distress Neurologic Exam: alert, oriented x 3, cooperative, normal mood/affect Skin Exam: normal color, warm, dry, No rash Eye Exam: eyes nml inspection, No scleral icterus Ears, Nose, Throat Exam: moist mucous membranes Neck Exam: normal inspection Respiratory Exam: normal breath sounds, chest tenderness (left lateral lower border chest l upper abdominal tenderness with palpation over stimulator), lungs clear, No respiratory distress, No diminished breath sounds, No accessory muscle use Cardiovascular Exam: regular rate/rhythm, normal heart sounds, No murmur Gastrointestinal/Abdomen Exam: soft, normal bowel sounds, tenderness, No distention, No guarding, No rebound Extremity Exam: other (muscle wasting and absent ROM lower extremities bilaterally) OBJECTIVE DATA Vital Signs: Vital Signs - 24 hr Temp Pulse Resp BP Pulse Ox 01/08/19 08:45 180/90 01/08/19 07:31 97.7 F 86 20 190/90 96 01/08/19 04:00 97.8 F 69 18 179/86 95 01/07/19 23:49 98.3 F 80 20 177/81 94 L 01/07/19 20:00 98.4 F 88 20 165/78 95 01/07/19 16:39 98.2 F 73 20 132/62 95 Pain Assessment - Last Documented Pain Intensity 7 Pain Scale Used 0-10 Pain Scale Intake and Output: Intake & Output 01/06/19 01/07/19 01/08/19 01/09/19 11:59 11:59 11:59 11:59 Intake Total 2841 5392 Output Total 3952 0566 Balance -1805 -581 Weight 95.2 kg 95.3 kg Lab Results: Lab Results-Last 24 Hours 01/07/19 01/07/19 Range/Units 14:35 14:35 WBC 7.0 (4.0-10.5) K/mm3 RBC 5.46 (4.1-5.6) M/mm3 Hgb 17.2 (12.5-18.0) gm/dl Hct 52.4 H (42-50) % MCV 96.0 (78-100) fl MCH 31.5 (26-32) pg MCHC 32.8 (32-36) g/dl RDW 15.3 H (11.5-14.0) % Plt Count 138 L (150-450) K/mm3 MPV 9.8 H (6-9.5) fl Gran % 72.2 H (36.0-66.0) % Eos # (Auto) 0.13 (0-0.5) Absolute Lymphs (auto) 0.94 L (1.0-4.6) Absolute Monos (auto) 0.84 (0.0-1.3) Lymphocytes % 13.5 L (24.0-44.0) % Monocytes % 12.1 H (0.0-12.0) % Eosinophils % 1.9 (0.00-5.0) % Basophils % 0.3 (0.0-0.4) % Absolute Granulocytes 5.04 (1.4-6.9) Basophils # 0.02 (0-0.4) Sodium 140 (137-145) mmol/L Potassium 4.1 (3.5-5.1) mmol/L Chloride 102 (98-107) mmol/L Carbon Dioxide 28 (22-30) mmol/L Anion Gap 13.4 (5-15) MEQ/L BUN 13 (9-20) mg/dL Creatinine 0.61 L (0.66-1.25) mg/dL Estimated GFR > 60.0 ML/MIN Glucose 131 H (74-106) mg/dL Calcium 8.9 (8.4-10.2) mg/dL Radiology Exams: Radiology Procedures Category Date Time Status ABDOMEN AND PELVIS W/0 CONTRAS [CT] Routine Exams 01/06/19 14:30 Completed Assessment/Plan (1) Abdominal pain Current Visit: No Status: Acute Assessment & Plan: Difficult to assess abdominal pain due to patient's chronic pain history. Patient is point tender over his stimulator which is located left lateral abdominal wall. is reporting that she believes it has shifted position. Patient will likely need device interrogated or removed if that is the cause of his pain. Patient was started on Lyrica for suspected nerve pain. Patient has had nerve pain in the past and thinks that neurotin and lyrica have been tried in the past for his nerve pain. was unsure if they were successful treatments for patient. Patient did not have CVA tenderness on exam this am. Code(s): R10.9 - UNSPECIFIED ABDOMINAL PAIN (2) Essential hypertension Current Visit: No Status: Acute Assessment & Plan: Patient has had a couple of elevated bps while in hospital. Will continue to monitor and continue with home meds. Code(s): I10 - ESSENTIAL (PRIMARY) HYPERTENSION (3) UTI (urinary tract infection) Current Visit: No Status: Acute Assessment & Plan: Patient's culture showed ecoli and sensitive to rocephin. Patient would receive third dose tomorrow which would be considered a complete course for UTI without pyelo. Patient has remained afebrile and didnt have CVA tenderness this am. Code(s): N39.0 - URINARY TRACT INFECTION, SITE NOT SPECIFIED (4) Chronic pain syndrome Current Visit: No Status: Chronic Assessment & Plan: Patient will need to follow up with Dr Klob pain specialist. Code(s): G89.4 - CHRONIC PAIN SYNDROME (5) Neurogenic bladder Current Visit: No Status: Chronic Assessment & Plan: Patient requires straight cath for neurogenic bladder. If patient continues to get freq UTIs with straight cath he may benefit from suprapubic cath. Code(s): N31.9 - NEUROMUSCULAR DYSFUNCTION OF BLADDER, UNSPECIFIED
[2019-01-08] MEDS: DILAUDID 2 MG INJECTION IV PRN ×2 (13:44→16:52)
[2019-01-08] MEDS: ZOCOR 20MG PO SCH (16:56)
[2019-01-08] MEDS: SENOKOT 8.6 MG PO SCH (16:56)
[2019-01-08] MEDS: Acidophilus TABLET PO SCH (16:56)
[2019-01-08] MEDS: Effexor XR 75 MG PO SCH (16:56)
[2019-01-08] MEDS: DESYREL 50 MG PO SCH (21:37)
[2019-01-08] MEDS: Protonix 40MG Tablet PO SCH (21:38)
[2019-01-09] MEDS: Apresoline 25 MG TABLET PO PRN ×2 (03:44→07:45)
[2019-01-09] MEDS: Colace 100 MG PO SCH (09:27)
[2019-01-09] MEDS: Ranexa 500 MG PO SCH (09:29)
[2019-01-09] MEDS: THERAGRAN MULTIVITAMIN PO SCH (09:29)
[2019-01-09] MEDS: ECOTRIN 81 MG PO SCH (09:29)
[2019-01-09] MEDS: Lyrica 50MG PO SCH (09:29)
[2019-01-09] MEDS: Cozaar 50 MG PO SCH (09:29)
[2019-01-09] MEDS: lamICTAL 100MG TABLET PO SCH (09:29)
[2019-01-09] MEDS: Miralax Powder 17GM PACKET PO SCH (09:30)
[2019-01-09] MEDS: Mylicon 80MG PO SCH (09:30)
[2019-01-09] MEDS: PATIENT OWN MEDICATION PO SCH (09:30)
[2019-01-09] MEDS: ROCEPHIN 1 Gm-D5w 50 ml Bag** 1 G/50 ML IVPB IV SCH (09:31)
[2019-01-09] MEDS: DILAUDID 2 MG INJECTION IV PRN (09:40)
[2019-01-09] MEDS ORDERED: hydroDIURIL 25 MG PO SCH (10:00)
[2019-01-09] MEDS ORDERED: Toprol Xl 100 MG PO SCH (10:00)
[2019-01-09] MEDS: PLAVIX 75 MG Tablet PO SCH (11:36)
[2019-01-09] MEDS: Imdur 60MG PO SCH (11:36)
[2019-01-09 12:34] VITALS: BP 174/84; PULSE 78; O2SAT 95
--- NOTE | 2019-01-09 13:03 | PCM.DCORD ---
- Discharge Discharge Date: 01/09/19 Disposition: Home, Self-Care Condition: Stable Prescriptions: New Losartan Potassium 50 mg [Cozaar 50 MG] 50 mg PO BID #180 tablet Hydrochlorothiazide 25 mg [hydroDIURIL 25 MG] 25 mg PO DAILY #90 tablet Cefdinir [Omnicef] 300 mg PO BID #8 capsule Metoprolol Succinate 100 mg [Toprol Xl 100 MG] 100 mg PO DAILY #90 tablet.sa Continue Venlafaxine HCl [Effexor Xr] 150 mg PO DINNER Testosterone Cypionate 200 mg IM UD Cranberry 15,000 mg PO DINNER Multivitamin [Multivitamins] 1 each PO QAM Docusate Sodium [Stool Softener] 250 mg PO TID Ranolazine 500 MG [Ranexa 500 MG] 500 mg PO BID Polyethylene Glycol 3350 [Miralax] 17 gm PO QAM Trazodone HCl 50 mg [Desyrel 50 mg] 50 mg PO HS Buprenorphine HCl [Belbuca] 900 mcg BC BID Isosorbide Mononitrate [Isosorbide Mononitrate ER] 60 mg PO LUNCH Atorvastatin Calcium [Lipitor] 40 mg PO DINNER Naloxegol Oxalate [Movantik] 25 mg PO QAM Simethicone [Gas Relief] 125 mg PO BID L.acidoph,Paracasei, B.lactis [Probiotic] 1 each PO DINNER Oxycodone HCl 10 mg PO QIDPRN PRN PRN Reason: Pain Bisacodyl 10 mg [Dulcolax 10 MG SUPP] 10 mg RC DAILY PRN PRN PRN Reason: Constipation lamoTRIgine [Lamotrigine] 200 mg PO BID Sennosides [Senokot] 2 tab PO DINNER PANTOPRAZOLE 40 mg Tablet [Protonix 40MG Tablet] 40 mg PO HS Clopidogrel Bisulfate 75 mg [PLAVIX 75 MG Tablet] 75 mg PO LUNCH Aspirin [Aspirin EC] 81 mg PO QAM Discontinued Losartan Potassium 50 mg PO QAM Metoprolol Succinate 50 mg [Toprol Xl 50 MG] 50 mg PO QAM Additional Instructions: Do not take nitrofurantoin that ER doctor prescribed. Follow up with pain management doctor about having stimulator removed. Follow up with: YAYA MORROW [Primary Care Provider] - 1 Week
--- NOTE | 2019-01-10 14:49 | DS ---
DISCHARGE DIAGNOSES: 1) ABDOMINAL PAIN. 2) URINARY TRACT INFECTION. 3) HYPERTENSION. 4) CHRONIC PAIN SYNDROME. 5) NEUROGENIC BLADDER. 6) PARAPLEGIA. DISCHARGE PHYSICAL EXAMINATION: VITALS: Temperature current 97.7F, temperature max 97.7F, heart rate 78, respiratory rate 20, blood pressure 174/84. Oxygen saturation 95% on room air. GENERAL: The patient was sitting up in bed in no acute distress with his at the bedside. CVS: He has a regular rate and rhythm. No murmurs, gallops or rubs. CHEST: Clear to auscultation bilaterally. No crackles or wheezes. ABDOMEN: Soft with some tenderness over where his nerve stimulator is placed in the left side of his abdomen. Normal bowel sounds. No guarding. No rigidity. EXTREMITIES: No clubbing, cyanosis or edema. He is paralyzed from the waist down. HOSPITAL COURSE: 1) ABDOMINAL PAIN: He had a CT scan of his abdomen and pelvis using renal protocol on admission that did not show any acute findings. He reports his pain is controllable with his home medications. He has not needed any IV pain medication in the last 12 hours. He plans to contact the provider that put in the stimulator or his pain management doctor to see about having that it removed as he feels like there may be scar tissue around it that may be causing pain. 2) URINARY TRACT INFECTION: His urine culture grew Escherichia coli that was susceptible to ceftriaxone. He completed four days of ceftriaxone, will give him four more days of Cefdinir 300 mg p.o. b.i.d. as an outpatient and follow up in the clinic. 3) HYPERTENSION: His blood pressure was running high during this hospitalization. He had hydralazine ordered as needed. His losartan was increased from 50 mg once a day to twice a day. I added hydrochlorothiazide 25 mg daily and increased the metoprolol from 50 mg daily to 100 mg daily and will plan to follow up his blood pressure as an outpatient. 4) CHRONIC PAIN SYNDROME: He was continued on his home dose of pain medication and will follow up with his pain management doctor. 5) NEUROGENIC BLADDER: He has in and out cath to obtain urine. They have a regimen that they do at home for this. 6) PARAPLEGIA: He is in a wheelchair at baseline and is able to help move himself around with his upper arm strength. DISCHARGE MEDICATIONS: Please see the discharge order. FOLLOW UP: He is to follow up with me in the clinic. DISPOSITION: The patient is discharged to home in fair condition.
== END 2019-01-09 14:20 | disposition home or self-care (01) | DRG 392 ==
LOC: MED SURG 14:00
PROVIDERS: ADMIT Internal Medicine; ATTEND Internal Medicine
DX: R10.9 Unspecified abdominal pain (principal); N39.0 Urinary tract infection, site not specified; G82.20 Paraplegia, unspecified; B96.20 Unspecified Escherichia coli [E. coli] as the cause of diseases classified elsewhere; N31.9 Neuromuscular dysfunction of bladder, unspecified; I10 Essential (primary) hypertension; G89.4 Chronic pain syndrome; I51.9 Heart disease, unspecified; Z79.899 Other long term (current) drug therapy; Z79.01 Long term (current) use of anticoagulants
CPT/HCPCS: 36415; 74176; 80048; 80053; 81001; 82150; 83690; 85025; 85610; 87077; 87086; 87186; J0696; J1170; A9270-GY

== ENCOUNTER 2019-04-03 06:10 | Day surgery (SDC) | payer MEDICARE, OTHER ==
[2019-04-03] MEDS ORDERED: Lactated Ringers 1,000 ML IV ONE (07:09)
[2019-04-03] MEDS ORDERED: Lactated Ringers 1,000 ML IV SCH (07:30)
[2019-04-03] MEDS ORDERED: DIPRIVAN 200 MG/20 ML IV ONE (07:49)
[2019-04-03 09:10] VITALS: BP 142/70; PULSE 62; O2SAT 97
--- NOTE | 2019-04-03 10:11 | OP ---
SURGERY DATE/TIME: 04/03/2019 0756 PREOPERATIVE DIAGNOSIS: History of colon cancer and partial left colectomy. POSTOPERATIVE DIAGNOSIS: Normal colon, status post partial colectomy, normal anastomotic site. PROCEDURE: Colonoscopy. SURGEON: Dr. Scott. ANESTHESIA: MAC. Medications given by anesthesia department. HISTORY: The patient is a 73 year-old white male patient who had colon cancer approximately three to four years ago. He had a partial left colectomy. He had a previous colonoscopy since that time that was apparently okay. The patient now presents for surveillance examination. He was apprised of the risks of the procedure including the risk of perforation, phlebitis, untoward reaction to medication, bleeding and missed lesions. The patient verbalized his understanding and desired to have the procedure performed. DESCRIPTION OF PROCEDURE: The patient was given the medications by the anesthesia department. He had continuous pulse oximetry, ECG monitoring, intermittent blood pressure monitoring and tidal CO2 monitoring during the examination. He was placed in the left lateral decubitus position. A digital rectal examination was performed and revealed normal anal sphincter tone and no masses. There was noted to be fairly large amounts of dark stool returning from the anal area at this time. The flexible Olympus pediatric colonoscope was used to intubate the rectum. A view of the colon was developed sequentially to the cecum. Upon insertion and withdrawal, including a retroflex view in the rectum was noted to be a normal anastomotic site although there was a fairly large amounts of stool that were liquidy and pasty especially in the left side of the colon obscuring the vision despite multiple attempts at suctioning and flushing with fluid. As best we could tell the site appeared to be free of any lesions. The scope was removed from the patient who tolerated the procedure well and was sent back to OP recovery in good condition.
== END 2019-04-03 09:30 | disposition home or self-care (01) ==
LOC: SDC 06:10
PROVIDERS: ATTEND Family Medicine
DX: Z12.11 Encounter for screening for malignant neoplasm of colon (principal); Z08 Encounter for follow-up examination after completed treatment for malignant neoplasm; Z85.038 Personal history of other malignant neoplasm of large intestine; Z90.49 Acquired absence of other specified parts of digestive tract
CPT/HCPCS: 99100; J2704

== ENCOUNTER 2019-05-12 23:53 | Emergency (ER) | payer MEDICARE, OTHER ==
--- NOTE | 2019-05-13 00:03 | ERPHSYRPT ---
- History of Present Illness Time Seen by Provider: 05/13/19 00:03 Source: patient, family Exam Limitations: no limitations Physician History: This is a 73-year-old right handed male who is a wheelchair-bound, bilateral lower extremity paraplegic and has chronic bilateral shoulder and elbow pain. He uses his upper body strength including both his upper extremities to lift him out of his wheelchair often. In the last few days patient has noticed significant worsening of his left shoulder and elbow pain. He denies fall or trauma or injury to these 2 areas. Patient is on chronic Belbuca opioid and oxycodone for breakthrough pain each day. These medications have not helped him in the last couple days. Patient denies chest pain or shortness of breath Occurred: days ago (Last few) Method of Injury: other (No specific acute injury or trauma) Quality: aching Severity of Pain-Max: moderate Severity of Pain-Current: moderate Extremities Pain Location: shoulder: left, elbow: left Modifying Factors: Improves With: movement, rest Associated Symptoms: none Allergies/Adverse Reactions: No Known Drug Allergies Allergy (Verified 05/13/19 00:29) Home Medications: Testosterone Cypionate 200 mg IM UD 05/18/16 [History] Venlafaxine HCl [Effexor Xr] 150 mg PO DINNER 05/18/16 [History] Cranberry 15,000 mg PO DINNER 06/19/16 [History] Multivitamin [Multivitamins] 1 each PO QAM 06/19/16 [History] Docusate Sodium [Stool Softener] 250 mg PO TID 01/11/17 [History] Atorvastatin Calcium [Lipitor] 40 mg PO DINNER 01/18/17 [History] Buprenorphine HCl [Belbuca] 900 mcg BC BID 01/18/17 [History] Isosorbide Mononitrate [Isosorbide Mononitrate ER] 60 mg PO LUNCH 01/18/17 [ History] Polyethylene Glycol 3350 [Miralax] 17 gm PO QAM 01/18/17 [History] Ranolazine 500 MG [Ranexa 500 MG] 500 mg PO BID 01/18/17 [History] Trazodone HCl 50 mg [Desyrel 50 mg] 50 mg PO HS 01/18/17 [History] Bisacodyl 10 mg [Dulcolax 10 MG SUPP] 10 mg RC DAILY PRN PRN 10/09/18 [ History] L.acidoph,Paracasei, B.lactis [Probiotic] 1 each PO DINNER 10/09/18 [History] Naloxegol Oxalate [Movantik] 25 mg PO QAM 10/09/18 [History] Oxycodone HCl 10 mg PO QIDPRN PRN 10/09/18 [History] Simethicone [Gas Relief] 125 mg PO BID 10/09/18 [History] lamoTRIgine [Lamotrigine] 400 mg PO BID 10/09/18 [History] Sennosides [Senokot] 2 tab PO DINNER 01/05/19 [History] Aspirin [Aspirin EC] 81 mg PO QAM 01/06/19 [History] Clopidogrel Bisulfate 75 mg [PLAVIX 75 MG Tablet] 75 mg PO LUNCH 01/06/19 [History] PANTOPRAZOLE 40 mg Tablet [Protonix 40MG Tablet] 40 mg PO HS 01/06/19 [ History] Nitroglycerin 0.4 mg (Ed) [Nitrostat 0.4 MG (ED)] 0.4 mg SL UD PRN [History] Lidocaine [Lidocaine Pain Relief] 1 each TP UD 04/03/19 [History] Trazodone HCl 50 mg [Desyrel 50 mg] 50 mg PO HS 04/03/19 [History] Hx Tetanus, Diphtheria Vaccination/Date Given: No Hx Influenza Vaccination/Date Given: No Hx Pneumococcal Vaccination/Date Given: No - Review of Systems Constitutional: No Symptoms Eyes: No Symptoms Ears, Nose, & Throat: No Symptoms Respiratory: No Symptoms Cardiac: No Symptoms Abdominal/Gastrointestinal: No Symptoms Genitourinary Symptoms: No Symptoms Musculoskeletal: Joint Pain (Left shoulder and left elbow) Skin: No Symptoms Neurological: No Symptoms Psychological: No Symptoms Endocrine: No Symptoms Hematologic/Lymphatic: No Symptoms Immunological/Allergic: No Symptoms All Other Systems: Reviewed and Negative - Past Medical History Pertinent Past Medical History: Yes Neurological History: Paralysis, Other ENT History: No Pertinent History Cardiac History: Angina, Congestive Heart Failure, Coronary Artery Disease, High Cholesterol, Hypertension Respiratory History: Bronchitis, COPD, Sleep Apnea Endocrine Medical History: No Pertinent History Musculoskeletal History: Fractures GI Medical History: Colorectal Cancer, GI Bleed History: No Pertinent History Psycho-Social History: No Pertinent History Male Reproductive Disorders: No Pertinent History 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 Left leg operation times 3, COLON CA AND RESECTION IN JAN, 2016, CABG 2015, fall 2011 - Social History Smoking Status: Never smoker How long have you smoked: 40 years Exposure to second hand smoke: No Alcohol Use: None Drug Use: none Patient Lives Alone: No Significant Family History: heart disease, diabetes - Physical Exam General Appearance: no apparent distress, alert, anxiety Eyes, Ears, Nose, Throat Exam: normal ENT inspection, moist mucous membranes Neck Exam: normal inspection, non-tender, supple, full range of motion Cardiovascular/Respiratory Exam: chest non-tender, regular rate/rhythm, heart sounds normal, no respiratory distress, No normal breath sounds Abdominal Exam: non-tender, soft Shoulder Exam: normal inspection, no evidence of injury, normal ROM, soft tissue tenderness, No deformity Elbow/Forearm Exam: normal inspection, no evidence of injury, normal ROM, soft tissue tenderness, No deformity Wrist Exam: normal inspection, non-tender, no evidence of injury, normal ROM Hand Exam: normal inspection, non-tender, no evidence of injury, normal ROM Neuro/Tendon Exam: normal sensation, normal motor functions, normal tendon functions, no evidence tendon injury Mental Status Exam: alert, oriented x 3, cooperative Skin Exam: normal color, warm, dry SpO2 Interpretation: normal O2 Delivery: Room Air - Course Nursing assessment & vital signs reviewed: Yes Ordered Tests: Active Orders 24 hr Category Date Time Status ELBOW (MINIMUM 3 VIEWS) Stat Exams 05/13/19 00:21 Ordered SHOULDER Stat Exams 05/13/19 00:21 Ordered Medication Summary Discontinued Medications Generic Name Dose Route Start Last Admin Trade Name Freq PRN Reason Stop Dose Admin Hydromorphone HCl 1 mg 05/13/19 00:58 Hydromorphone 1 Mg/Ml Ampule IM 05/13/19 00:59 STAT ONE Methylprednisolone Sodium Succinate 125 mg 05/13/19 00:59 Solu-Medrol 125 Mg IM 05/13/19 01:00 STAT ONE Ondansetron HCl 4 mg 05/13/19 00:58 Zofran Odt 4 Mg PO 05/13/19 00:59 STAT ONE - Progress Progress: unchanged Progress Note: 05/13/19 00:56 X-ray of the left shoulder does not reveal any acute fracture or dislocation. 05/13/19 01:03 X-ray of the left elbow shows chronic changes with spurring present. No acute fracture or dislocation Counseled pt/family regarding: diagnosis, need for follow-up, rad results - Departure Departure Disposition: Home (Left shoulder strain) Clinical Impression: Left shoulder strain, Strain of left elbow Condition: Stable Critical Care Time: No Referrals: YAYA MORROW [Primary Care Provider] - Additional Instructions: Continue using your home narcotic medication as prescribed. Follow-up with your primary care physician for further management.
[2019-05-13] MEDS ORDERED: Hydromorphone 1 mg/ml Ampule IM ONE (00:58)
[2019-05-13] MEDS ORDERED: ZOFRAN ODT 4 MG PO ONE (00:58)
[2019-05-13] MEDS ORDERED: solu-MEDROL 125 MG IM ONE (00:59)
[2019-05-13] MEDS ORDERED: ZOFRAN ODT 4 MG ONE (01:19)
[2019-05-13] MEDS ORDERED: Hydromorphone 1 mg/ml Ampule ONE (01:20)
[2019-05-13] MEDS ORDERED: solu-MEDROL 125 MG ONE (01:20)
[2019-05-13 02:01] VITALS: BP 131/68; PULSE 79; O2SAT 95
--- NOTE | 2019-05-13 08:40 | XRAY ---
Indication: Severe pain. No known injury. Comparison: None 3 views of the left elbow demonstrates moderates spurring olecranon process and small spurring medial epicondyle. No other bony, articular, or soft tissue abnormalities.
--- NOTE | 2019-05-13 08:42 | XRAY ---
Indication: Severe pain. Comparison: None 2 views of the left shoulder demonstrates mild/moderate AC degenerative arthropathy with tiny inferior spurring. Slightly high riding humeral head commonly seen with rotator cuff tear. Incompletely visualized multilevel bilateral thoracic Elder rods/pedicle screws. Incidental left upper lobe calcified granuloma. No other bony, articular, or soft tissue abnormalities. Impression: Nonacute left shoulder with chronic features.
== END 2019-05-13 02:00 | disposition home or self-care (01) ==
LOC: ED 23:53
DX: S46.912A Strain of unspecified muscle, fascia and tendon at shoulder and upper arm level, left arm, initial encounter (principal); S53.402A Unspecified sprain of left elbow, initial encounter; X50.0XXA Overexertion from strenuous movement or load, initial encounter
CPT/HCPCS: 73030; 73080; 96372; 99284; J1170; J2930; Q0162

== ENCOUNTER 2020-04-02 07:20 | Day surgery (SDC) | payer MEDICARE, OTHER ==
[~2020-04-02 07:20] MED LIST changes: +Ak-Dilate OPHTHALMIC*** 1.065 ML, Cyclogyl 1% OPHTH SOL 5 ML 1.065 ML, GATIFLOXACIN 0.5... OP ONE; +BETADINE 5% OPHTHALMIC 30 ML OP ONE; +Lactated Ringers 1,000 ML IV ONE; +Lactated Ringers 1,000 ML IV SCH; -MORPHINE SULFATE 4 MG INJ IV ONE; -MORPHINE SULFATE 4 MG INJ ONE; +NON-FORMULARY ITEM IJ ONE; -ROCEPHIN 1 Gm-D5w 50 ml Bag** 1 G/50 ML IVPB IV ONE; -ROCEPHIN 1 Gm-D5w 50 ml Bag** 1 G/50 ML IVPB IV STA; -Sodium Chloride 0.9% 1000 ML 1,000 ML IV SCH; +TETRACAINE 0.5% STERI-UNIT SOL OP ONE; -Zofran 4 MG/2 ML VIAL IV ONE; -Zofran 4 MG/2 ML VIAL ONE; +cefUROXime sodium 0.005 GM in Sodium Chloride Flush 30 ML*** 0.5 ML IJ SCH
[2020-04-02] MEDS ORDERED: Zofran 4 MG/2 ML VIAL IV PRN (09:00)
[2020-04-02] MEDS ORDERED: LIDOCAINE HCL 1% 50 MG/5 ML VL PF IJ ONE (09:00)
[2020-04-02] MEDS ORDERED: ACETAZOLAMIDE 250 MG TABLET PO ONE (09:00)
[2020-04-02] MEDS ORDERED: Epinephrine Preservative Free 1 MG/ML INTRAOP ONE (09:00)
[2020-04-02] MEDS ORDERED: DIPRIVAN 200 MG/20 ML IV ONE (09:44)
[2020-04-02 11:22] VITALS: BP 166/79; PULSE 70; O2SAT 95
== END 2020-04-02 11:23 | disposition home or self-care (01) ==
LOC: SDC 07:20
PROVIDERS: ATTEND Ophthalmology
DX: H25.812 Combined forms of age-related cataract, left eye (principal); I10 Essential (primary) hypertension; I51.9 Heart disease, unspecified; E78.00 Pure hypercholesterolemia, unspecified; Z79.899 Other long term (current) drug therapy
CPT/HCPCS: 66982; 99100; C1780; J0171; J2001; J2704; A9270-GY

== ENCOUNTER 2020-07-02 07:34 | Day surgery (SDC) | payer MEDICARE, OTHER ==
[~2020-07-02 07:34] MED LIST changes: +ACETAZOLAMIDE 250 MG TABLET PO ONE; +Epinephrine Preservative Free 1 MG/ML INTRAOP ONE; +LIDOCAINE HCL 1% 50 MG/5 ML VL PF IJ ONE; -NON-FORMULARY ITEM IJ ONE; +NON-FORMULARY ITEM OP ONE; +Zofran 4 MG/2 ML VIAL IV PRN
[2020-07-02] MEDS ORDERED: Zofran 4 MG/2 ML VIAL IV PRN (09:00)
[2020-07-02] MEDS ORDERED: ACETAZOLAMIDE 250 MG TABLET PO ONE (09:00)
[2020-07-02] MEDS ORDERED: DIPRIVAN 200 MG/20 ML IV ONE (09:43)
[2020-07-02] MEDS ORDERED: Versed 2 MG/2 ML Injection ONE (09:47)
[2020-07-02] MEDS ORDERED: LIDOCAINE HCL 1% 50 MG/5 ML VL PF IJ ONE (10:00)
[2020-07-02] MEDS ORDERED: Epinephrine Preservative Free 1 MG/ML INTRAOP ONE (10:00)
[2020-07-02 11:06] VITALS: O2SAT 98
[2020-07-02 11:21] VITALS: BP 120/72; PULSE 78
== END 2020-07-02 11:20 | disposition home or self-care (01) ==
LOC: SDC 07:34
PROVIDERS: ATTEND Ophthalmology
DX: H25.811 Combined forms of age-related cataract, right eye (principal)
CPT/HCPCS: 66982; 99100; C1780; J0171; J2001; J2250; J2704; A9270-GY

== ENCOUNTER 2020-09-26 13:36 | Observation (INO) | payer MEDICARE, OTHER ==
--- NOTE | 2020-09-26 13:39 | ERPHSYRPT ---
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 Patient is diabetic and has hypertension and is on Plavix. He has recurrent UTIs. The patient is on chronic daily low-dose antibiotics because of frequent urinary tract infection. Patient self catheterizes his urinary bladder. In the last 8 days, the patient's mental status has changed. He is sleeping more often. He was placed on cefdinir 2 days ago. He has not been drinking well because of his mild lethargy. He has no chest pain. He has no significant abdominal pain. Timing/Duration: day(s) (8) Severity: moderate Associated Symptoms: weakness, No nausea, No vomiting, No abdominal pain, No chest pain Allergies/Adverse Reactions: No Known Drug Allergies Allergy (Verified 07/02/20 07:49) Home Medications: Testosterone Cypionate 200 mg IM UD 05/18/16 [History] Venlafaxine HCl [Effexor Xr] 150 mg PO DINNER 05/18/16 [History] Cranberry 15,000 mg PO DINNER 06/19/16 [History] Multivitamin [Multivitamins] 1 each PO QAM 06/19/16 [History] Docusate Sodium [Stool Softener] 250 mg PO TID 01/11/17 [History] Atorvastatin Calcium [Lipitor] 40 mg PO DINNER 01/18/17 [History] Isosorbide Mononitrate [Isosorbide Mononitrate ER] 60 mg PO LUNCH 01/18/17 [History] Polyethylene Glycol 3350 [Miralax] 17 gm PO QAM 01/18/17 [History] Ranolazine 500 MG [Ranexa 500 MG] 500 mg PO BID 01/18/17 [History] Bisacodyl 10 mg [Dulcolax 10 MG SUPP] 10 mg RC DAILY PRN PRN 10/09/18 [History] L.acidoph,Paracasei, B.lactis [Probiotic] 1 each PO DINNER 10/09/18 [History] Naloxegol Oxalate [Movantik] 25 mg PO QAM 10/09/18 [History] Simethicone [Gas Relief] 125 mg PO BID 10/09/18 [History] lamoTRIgine [Lamotrigine] 200 mg PO DAILY 10/09/18 [History] Aspirin [Aspirin EC] 81 mg PO QAM 01/06/19 [History] Clopidogrel Bisulfate 75 mg [PLAVIX 75 MG Tablet] 75 mg PO LUNCH 01/06/19 [History] Nitroglycerin 0.4 mg (Ed) [Nitrostat 0.4 MG (ED)] 0.4 mg SL UD PRN 03/27/19 [History] Trazodone HCl 50 mg [Desyrel 50 mg] 50 mg PO HS 04/03/19 [History] Amlodipine Besylate 5 mg [Norvasc 5 mg] 5 mg PO DAILY 03/26/20 [History] Lidocaine 1 each TP Q12H PRN PRN 04/22/20 [History] Lidocaine 5 gm TP TID 04/22/20 [History] OXcarbazepine [Trileptal] 300 mg PO BID 04/22/20 [History] Gabapentin [Gralise] 600 mg PO TID 05/15/20 [History] Tapentadol HCl [Nucynta ER] 100 mg PO Q4-6HPRN PRN 07/02/20 [History] Metformin HCl 500 mg [Glucophage 500 MG] 500 mg PO BID 09/26/20 [History] Hx Tetanus, Diphtheria Vaccination/Date Given: No Hx Influenza Vaccination/Date Given: No Hx Pneumococcal Vaccination/Date Given: No Travel Risk - International Travel Have you traveled outside of the country in past 3 weeks: No - Coronavirus Screening Are you exhibiting any of the following symptoms?: No Close contact with a COVID-19 positive Pt in past 14-21 Days: No - Review of Systems Constitutional: Weakness Eyes: No Symptoms Ears, Nose, & Throat: No Symptoms Respiratory: No Symptoms Cardiac: No Symptoms Abdominal/Gastrointestinal: No Symptoms Genitourinary Symptoms: No Symptoms Musculoskeletal: No Symptoms Skin: No Symptoms Neurological: Lethargy Psychological: No Symptoms Endocrine: No Symptoms Hematologic/Lymphatic: No Symptoms Immunological/Allergic: No Symptoms All Other Systems: Reviewed and Negative - Past Medical History Pertinent Past Medical History: Yes Neurological History: Paralysis, Other ENT History: Cataracts Cardiac History: Angina, Congestive Heart Failure, Coronary Artery Disease, High Cholesterol, Hypertension Respiratory History: Bronchitis, COPD, Sleep Apnea Endocrine Medical History: No Pertinent History Musculoskeletal History: Fractures GI Medical History: Colorectal Cancer, GI Bleed History: No Pertinent History Psycho-Social History: No Pertinent History Male Reproductive Disorders: No Pertinent History Other Medical History: 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 Left leg operation times 3, COLON CA AND RESECTION IN JAN, 2016, CABG 2015, fall 2011, wound on buttock cultured pos. - Social History Smoking Status: Never smoker How long have you smoked: 40 years Exposure to second hand smoke: No Alcohol Use: None Drug Use: none Patient Lives Alone: No Significant Family History: heart disease, diabetes - Nursing Vital Signs Nursing Vital Signs: Initial Vital Signs Temperature 97.2 F 09/26/20 14:11 Pulse Rate 82 09/26/20 14:11 Respiratory Rate 16 09/26/20 14:11 Blood Pressure 142/77 09/26/20 14:11 O2 Sat by Pulse Oximetry 96 09/26/20 14:11 Pain Scale Pain Intensity 8 - Physical Exam General Appearance: lethargy Eye Exam: PERRL/EOMI, eyes nml inspection Ears, Nose, Throat Exam: normal ENT inspection, moist mucous membranes Neck Exam: normal inspection, non-tender, supple, full range of motion Respiratory Exam: normal breath sounds, lungs clear, airway intact, No chest tenderness, No respiratory distress Cardiovascular Exam: regular rate/rhythm, normal heart sounds, normal peripheral pulses Gastrointestinal/Abdomen Exam: soft, normal bowel sounds, No tenderness Rectal Exam: not done Back Exam: normal inspection, normal range of motion, No CVA tenderness, No vertebral tenderness Extremity Exam: other (Patient is paraplegic from the waist down) Neurologic Exam: other (Lethargic but arousable mild confusion) Skin Exam: normal color, warm, dry Lymphatic Exam: No adenopathy SpO2 Interpretation: normal O2 Delivery: Room Air - Course Nursing assessment & vital signs reviewed: Yes Ordered Tests: Active Orders 24 hr Category Date Time Status EKG-ER Only STAT Care 09/26/20 14:35 Active IV Insertion STAT Care 09/26/20 14:35 Active Pulse Oximetry (ED) STAT Care 09/26/20 14:35 Active HEAD WITHOUT CONTRAST [CT] Stat Exams 09/26/20 14:59 Completed BLOOD CULTURE Stat Lab 09/26/20 15:15 Received CBC W DIFF Stat Lab 09/26/20 15:05 Completed CMP Stat Lab 09/26/20 15:05 Completed CULTURE,URINE Stat Lab 09/26/20 16:24 Ordered Lactic Acid Stat Lab 09/26/20 15:20 Completed Lactic Acid Stat Lab 09/26/20 17:24 Completed MAGNESIUM Stat Lab 09/26/20 15:05 Completed Manual Differential NC Stat Lab 09/26/20 15:05 Completed [place] Screen Stat Lab 09/26/20 15:05 Completed NT PRO BNP Stat Lab 09/26/20 15:05 Completed TROPONIN Q3H Lab 09/26/20 15:05 Completed TROPONIN Q3H Lab 09/26/20 18:00 Received TROPONIN Q3H Lab 09/26/20 20:45 Ordered TROPONIN Q3H Lab 09/26/20 23:45 Ordered TROPONIN Q3H Lab 09/27/20 02:45 Ordered UA W/RFX UR CULTURE Stat Lab 09/26/20 16:24 Completed Transfer Order Routine Transfer 09/26/20 Ordered Medication Summary Generic Name Dose Route Start Last Admin Trade Name Freq PRN Reason Stop Dose Admin Ceftriaxone Sodium/Dextrose 1 g in 50 mls @ 100 mls/hr 09/26/20 18:28 Rocephin 1 Gm-D5w 50 Ml Bag IV 09/26/20 18:57 STAT STA Discontinued Medications Generic Name Dose Route Start Last Admin Trade Name Freq PRN Reason Stop Dose Admin Sodium Chloride 1,000 mls @ 999 mls/hr 09/26/20 14:35 09/26/20 16:36 Sodium Chloride 0.9% 1000 Ml IV 09/26/20 15:35 Infused .Q1H1M STA Infusion Sodium Chloride Confirm 09/26/20 15:26 Sodium Chloride 0.9% 1000 Ml Administered 09/26/20 15:27 Dose 1,000 mls @ ud .ROUTE .STK-MED ONE Lab/Rad Data: Laboratory Result Diagrams 09/26/20 15:05 09/26/20 15:05 Laboratory Results 09/26/20 09/26/20 09/26/20 Range/Units 17:24 16:24 15:20 WBC (4.0-10.5) K/mm3 RBC (4.1-5.6) M/mm3 Hgb (12.5-18.0) gm/dl Hct (42-50) % MCV (78-100) fl MCH (26-32) pg MCHC (32-36) g/dl RDW (11.5-14.0) % Plt Count (150-450) K/mm3 MPV (7.5-11.0) fl Gran % (36.0-66.0) % Eos # (Auto) (0-0.5) Absolute Lymphs (auto) (1.0-4.6) Absolute Monos (auto) (0.0-1.3) Lymphocytes % (24.0-44.0) % Monocytes % (0.0-12.0) % Eosinophils % (0.00-5.0) % Basophils % (0.0-0.4) % Absolute Granulocytes (1.4-6.9) Segmented Neutrophils (36.-66.) % Band Neutrophils (0.0-2.0) % Lymphocytes (Manual) (24-44) % Monocytes (Manual) (0.0-12.0) % Basophils # (0-0.4) Toxic Granulation Platelet Estimate (NORMAL) RBC Morphology Sodium (137-145) mmol/L Potassium (3.5-5.1) mmol/L Chloride (98-107) mmol/L Carbon Dioxide (22-30) mmol/L Anion Gap (5-15) MEQ/L BUN (9-20) mg/dL Creatinine (0.66-1.25) mg/dL Estimated GFR ML/MIN Glucose (74-106) mg/dL Lactic Acid 2.2 H 2.1 H (0.4-2.0) Calcium (8.4-10.2) mg/dL Magnesium (1.6-2.3) mg/dL Total Bilirubin (0.2-1.3) mg/dL AST (17-59) U/L ALT (0-50) U/L Alkaline Phosphatase (38-126) U/L Troponin I (0.000-0.034) ng/mL NT-Pro-B Natriuret Pep (0-900) pg/mL Serum Total Protein (6.3-8.2) g/dL Albumin (3.5-5.0) g/dL Urine Color YELLOW (YELLOW) Urine Appearance CLEAR (CLEAR) Urine pH 7.0 (5-6) Ur Specific Hartman 1.015 (1.005-1.025) Urine Protein NEGATIVE (Negative) Urine Ketones TRACE (NEGATIVE) Urine Blood NEGATIVE (0-5) Luis M/ul Urine Nitrite NEGATIVE (NEGATIVE) Urine Bilirubin NEGATIVE (NEGATIVE) Urine Urobilinogen NEGATIVE (0-1) mg/dL Ur Leukocyte Esterase MODERATE (NEGATIVE) Urine WBC (Auto) 26-50 (0-5) /HPF Urine RBC (Auto) 3-5 (0-2) /HPF U Epithel Cells (Auto) RARE (FEW) /HPF Urine Bacteria (Auto) NONE (NEGATIVE) /HPF Urine Culture Reflexed ORDERED SEPARATELY (NO) Urine Glucose >=500 (NEGATIVE) mg/dL Monoscreen (Negative) 09/26/20 09/26/20 09/26/20 Range/Units 15:05 15:05 15:05 WBC (4.0-10.5) K/mm3 RBC (4.1-5.6) M/mm3 Hgb (12.5-18.0) gm/dl Hct (42-50) % MCV (78-100) fl MCH (26-32) pg MCHC (32-36) g/dl RDW (11.5-14.0) % Plt Count (150-450) K/mm3 MPV (7.5-11.0) fl Gran % (36.0-66.0) % Eos # (Auto) (0-0.5) Absolute Lymphs (auto) (1.0-4.6) Absolute Monos (auto) (0.0-1.3) Lymphocytes % (24.0-44.0) % Monocytes % (0.0-12.0) % Eosinophils % (0.00-5.0) % Basophils % (0.0-0.4) % Absolute Granulocytes (1.4-6.9) Segmented Neutrophils (36.-66.) % Band Neutrophils (0.0-2.0) % Lymphocytes (Manual) (24-44) % Monocytes (Manual) (0.0-12.0) % Basophils # (0-0.4) Toxic Granulation Platelet Estimate (NORMAL) RBC Morphology Sodium 135 L (137-145) mmol/L Potassium 5.0 (3.5-5.1) mmol/L Chloride 97 L (98-107) mmol/L Carbon Dioxide 28 (22-30) mmol/L Anion Gap 14.3 (5-15) MEQ/L BUN 20 (9-20) mg/dL Creatinine 0.74 (0.66-1.25) mg/dL Estimated GFR > 60.0 ML/MIN Glucose 346 H (74-106) mg/dL Lactic Acid (0.4-2.0) Calcium 9.7 (8.4-10.2) mg/dL Magnesium 1.8 (1.6-2.3) mg/dL Total Bilirubin 0.20 (0.2-1.3) mg/dL AST 25 (17-59) U/L ALT 43 (0-50) U/L Alkaline Phosphatase 305 H (38-126) U/L Troponin I < 0.012 (0.000-0.034) ng/mL NT-Pro-B Natriuret Pep 107 (0-900) pg/mL Serum Total Protein 6.8 (6.3-8.2) g/dL Albumin 3.8 (3.5-5.0) g/dL Urine Color (YELLOW) Urine Appearance (CLEAR) Urine pH (5-6) Ur Specific Hartman (1.005-1.025) Urine Protein (Negative) Urine Ketones (NEGATIVE) Urine Blood (0-5) Luis M/ul Urine Nitrite (NEGATIVE) Urine Bilirubin (NEGATIVE) Urine Urobilinogen (0-1) mg/dL Ur Leukocyte Esterase (NEGATIVE) Urine WBC (Auto) (0-5) /HPF Urine RBC (Auto) (0-2) /HPF U Epithel Cells (Auto) (FEW) /HPF Urine Bacteria (Auto) (NEGATIVE) /HPF Urine Culture Reflexed (NO) Urine Glucose (NEGATIVE) mg/dL Monoscreen NEGATIVE (Negative) 09/26/20 Range/Units 15:05 WBC 6.8 (4.0-10.5) K/mm3 RBC 4.71 (4.1-5.6) M/mm3 Hgb 14.0 (12.5-18.0) gm/dl Hct 44.0 (42-50) % MCV 93.4 (78-100) fl MCH 29.7 (26-32) pg MCHC 31.8 L (32-36) g/dl RDW 14.2 H (11.5-14.0) % Plt Count 274 (150-450) K/mm3 MPV 9.3 (7.5-11.0) fl Gran % 72.9 H (36.0-66.0) % Eos # (Auto) 0 (0-0.5) Absolute Lymphs (auto) 1.39 (1.0-4.6) Absolute Monos (auto) 0.45 (0.0-1.3) Lymphocytes % 20.4 L (24.0-44.0) % Monocytes % 6.6 (0.0-12.0) % Eosinophils % 0.0 (0.00-5.0) % Basophils % 0.1 (0.0-0.4) % Absolute Granulocytes 4.96 (1.4-6.9) Segmented Neutrophils 78 H (36.-66.) % Band Neutrophils 2 (0.0-2.0) % Lymphocytes (Manual) 18 L (24-44) % Monocytes (Manual) 2 (0.0-12.0) % Basophils # 0.01 (0-0.4) Toxic Granulation 1+ Platelet Estimate NORMAL (NORMAL) RBC Morphology NORMAL Sodium (137-145) mmol/L Potassium (3.5-5.1) mmol/L Chloride (98-107) mmol/L Carbon Dioxide (22-30) mmol/L Anion Gap (5-15) MEQ/L BUN (9-20) mg/dL Creatinine (0.66-1.25) mg/dL Estimated GFR ML/MIN Glucose (74-106) mg/dL Lactic Acid (0.4-2.0) Calcium (8.4-10.2) mg/dL Magnesium (1.6-2.3) mg/dL Total Bilirubin (0.2-1.3) mg/dL AST (17-59) U/L ALT (0-50) U/L Alkaline Phosphatase (38-126) U/L Troponin I (0.000-0.034) ng/mL NT-Pro-B Natriuret Pep (0-900) pg/mL Serum Total Protein (6.3-8.2) g/dL Albumin (3.5-5.0) g/dL Urine Color (YELLOW) Urine Appearance (CLEAR) Urine pH (5-6) Ur Specific Hartman (1.005-1.025) Urine Protein (Negative) Urine Ketones (NEGATIVE) Urine Blood (0-5) Luis M/ul Urine Nitrite (NEGATIVE) Urine Bilirubin (NEGATIVE) Urine Urobilinogen (0-1) mg/dL Ur Leukocyte Esterase (NEGATIVE) Urine WBC (Auto) (0-5) /HPF Urine RBC (Auto) (0-2) /HPF U Epithel Cells (Auto) (FEW) /HPF Urine Bacteria (Auto) (NEGATIVE) /HPF Urine Culture Reflexed (NO) Urine Glucose (NEGATIVE) mg/dL Monoscreen (Negative) - Progress Progress: improved, re-examined Progress Note: 09/26/20 16:48 CAT scan of the head without contrast shows, when compared to CAT scan of the head dated March 16, 2016 a new but not acute tiny lacunar infarct right external capsule. There are no acute intracranial abnormalities. 09/26/20 18:20 Medical decision making: This patient is reexamined. He is much more awake alert and oriented after intravenous fluids. We will give him a dose of intravenous Rocephin and I contacted the patient's primary care physician Dr. Link. He is out of town and Dr. Javed is covering for his patients. I placed a call into Dr. Javed and I am awaiting his call back. I think the patient will be best served by placing him in the hospital in observation status. Counseled pt/family regarding: lab results, diagnosis, need for follow-up, rad results - Departure Departure Disposition: Observation Clinical Impression: Altered mental status, Dehydration, UTI (urinary tract infection) Condition: Stable Critical Care Time: No Referrals: PRERNA LINK MD [Primary Care Provider] -
[2020-09-26] MEDS ORDERED: Sodium Chloride 0.9% 1000 ML 1,000 ML IV STA (14:35)
[2020-09-26] MEDS ORDERED: Sodium Chloride 0.9% 1000 ML 1,000 ML ONE (15:26)
[2020-09-26 15:35] LABS: Absolute Neutrophil Ct (ANC) 4.96 (1.4-6.9); BASOPHIL % 0.1 % (0.0-0.4); Basophil (Absolute #) 0.01 (0-0.4); Eosinophil (Absolute #) 0 (0-0.5); Lymphocyte (Absolute #) 1.39 (1.0-4.6); Lymphocytes % 20.4 % (24.0-44.0); Mean Cell Volume 93.4 fl (78-100); Mean Corpuscular Hemoglobin 29.7 pg (26-32); Mean Corpuscular Hgb Concent. 31.8 g/dl (32-36); Mean Platelet Volume 9.3 fl (7.5-11.0); Monocyte (Absolute #) 0.45 (0.0-1.3); Monocytes % 6.6 % (0.0-12.0); Neutrophil % 72.9 % (36.0-66.0); Platelet Count 274 K/mm3 (150-450); Red Blood Count 4.71 M/mm3 (4.1-5.6); Red Cell Distribution Width 14.2 % (11.5-14.0); White Blood Count 6.8 K/mm3 (4.0-10.5)
[2020-09-26 15:52] LABS: ALBUMIN 3.8 g/dL (3.5-5.0); ALKALINE PHOSPHATASE 305 U/L (38-126); ANION GAP 14.3 MEQ/L (5-15); BLOOD UREA NITROGEN 20 mg/dL (9-20); CHLORIDE 97 mmol/L (98-107); Calcium 9.7 mg/dL (8.4-10.2); Carbon Dioxide 28 mmol/L (22-30); Creatinine 1 0.74 mg/dL (0.66-1.25); EST GLOMERULAR FILTRATION RATE > 60.0 ML/MIN; Glucose 346 mg/dL (74-106); MAGNESIUM 1.8 mg/dL (1.6-2.3); NT PRO BNP 107 pg/mL (0-900); SGOT/AST 25 U/L (17-59); SGPT/ALT 43 U/L (0-50); SODIUM 135 mmol/L (137-145); Total Protein 6.8 g/dL (6.3-8.2)
[2020-09-26 16:26] LABS: BAND 2 % (0.0-2.0); Lymphocytes 18 % (24-44); Monocyte 2 % (0.0-12.0); Neutrophils 78 % (36.-66.); Platelet Estimate NORMAL (NORMAL); Total Cells Counted 100; Toxic Granulation 1+
--- NOTE | 2020-09-26 16:36 | XRAY ---
Indication: Altered mental status. Multiple contiguous axial images obtained through the head without contrast. Comparison: March 16, 2016. Again age appropriate global atrophy. New tiny lacunar infarct right external capsule. No acute intracranial hemorrhage, abnormal extra-axial fluid collection, or mass effect. Fourth ventricle is midline without hydrocephalus. Rowan-white matter differentiation preserved. Bony calvarium intact. Visualized paranasal sinuses and mastoid air cells are clear. Impression: Atrophy within normal limits for patient's age. Tiny lacunar infarct right external capsule. No acute intracranial abnormalities.
[2020-09-26 17:12] LABS: Appearance CLEAR (CLEAR); Bilirubin NEGATIVE (NEGATIVE); Blood NEGATIVE Ery/ul (0-5); Epithelial Cells RARE /HPF (FEW); Glucose >=500 mg/dL (NEGATIVE); Ketones TRACE (NEGATIVE); Leukocyte Esterase MODERATE (NEGATIVE); Nitrite NEGATIVE (NEGATIVE); Protein,Urine Dip NEGATIVE (Negative); Specific Gravity 1.015 (1.005-1.025); Urobilinogen NEGATIVE mg/dL (0-1); WBC 26-50 /HPF (0-5)
[2020-09-26] MEDS ORDERED: ROCEPHIN 1 Gm-D5w 50 ml Bag** 1 G/50 ML IVPB IV STA (18:28)
[2020-09-26] MEDS ORDERED: ROCEPHIN 1 Gm-D5w 50 ml Bag** 1 G/50 ML IVPB IV ONE (18:37)
[2020-09-26] MEDS ORDERED: TYLENOL 325 MG PO PRN (20:40)
[2020-09-26] MEDS ORDERED: HUMULIN R SQ PRN (20:40)
[2020-09-26] MEDS ORDERED: Zofran 4 MG/2 ML VIAL IV PRN (20:40)
[2020-09-26] MEDS: Sodium Chloride 0.9% 1000 ML 1,000 ML IV SCH (20:56)
[2020-09-26] MEDS ORDERED: NON-FORMULARY ITEM PO PRN (23:18)
[2020-09-26] MEDS ORDERED: Colace 100 MG ONE (23:33)
[2020-09-26] MEDS: Colace 100 MG PO SCH ×2 (23:38→23:39)
[2020-09-26] MEDS: Cozaar 50 MG PO SCH (23:40)
[2020-09-26] MEDS: Imdur 60MG PO SCH (23:40)
[2020-09-26] MEDS: Effexor XR 75 MG PO SCH (23:41)
[2020-09-26] MEDS: NEURONTIN 300 MG PO SCH (23:41)
[2020-09-26] MEDS ORDERED: DESYREL 50 MG ONE (23:44)
[2020-09-26] MEDS ORDERED: ZOCOR 20MG ONE (23:45)
[2020-09-27] MEDS: Ranexa 500 MG PO SCH ×2 (00:08→09:13)
[2020-09-27 05:54] LABS: BASOPHIL % 0.3 % (0.0-0.4); Basophil (Absolute #) 0.02 (0-0.4); Eosinophil (Absolute #) 0 (0-0.5); Hematocrit 41.6 % (42-50); Hemoglobin 13.2 gm/dl (12.5-18.0); Lymphocyte (Absolute #) 1.47 (1.0-4.6); Lymphocytes % 20.2 % (24.0-44.0); Mean Cell Volume 93.1 fl (78-100); Mean Corpuscular Hemoglobin 29.5 pg (26-32); Mean Corpuscular Hgb Concent. 31.7 g/dl (32-36); Mean Platelet Volume 9.1 fl (7.5-11.0); Monocytes % 8.2 % (0.0-12.0); Neutrophil % 71.3 % (36.0-66.0); Platelet Count 260 K/mm3 (150-450); Red Blood Count 4.47 M/mm3 (4.1-5.6); Red Cell Distribution Width 14.1 % (11.5-14.0); White Blood Count 7.3 K/mm3 (4.0-10.5)
[2020-09-27 06:09] LABS: ANION GAP 12.4 MEQ/L (5-15); BLOOD UREA NITROGEN 15 mg/dL (9-20); CHLORIDE 102 mmol/L (98-107); Calcium 9.1 mg/dL (8.4-10.2); Carbon Dioxide 25 mmol/L (22-30); Creatinine 1 0.61 mg/dL (0.66-1.25); EST GLOMERULAR FILTRATION RATE > 60.0 ML/MIN; Glucose 244 mg/dL (74-106); Potassium 4.3 mmol/L (3.5-5.1); SODIUM 135 mmol/L (137-145)
[2020-09-27] MEDS: Sodium Chloride 0.9% 1000 ML 1,000 ML IV SCH (06:53)
[2020-09-27 07:33] VITALS: BP 142/63; PULSE 79; O2SAT 93
[2020-09-27] MEDS ORDERED: Glucophage 500 MG PO SCH ×2 (08:00→10:00)
[2020-09-27] MEDS: Colace 100 MG PO SCH (09:13)
[2020-09-27] MEDS: Cozaar 50 MG PO SCH (09:14)
[2020-09-27] MEDS: NEURONTIN 300 MG PO SCH (09:14)
[2020-09-27] MEDS: Effexor XR 75 MG PO SCH (09:14)
[2020-09-27] MEDS: Imdur 60MG PO SCH (09:14)
[2020-09-27] MEDS ORDERED: LIDOCAINE TP PRN (09:29)
[2020-09-27] MEDS ORDERED: Nitrostat 0.4 MG (ED) SL PRN (09:29)
[2020-09-27] MEDS ORDERED: TAPENTADOL HCL 100 MG PO PRN (09:29)
[2020-09-27] MEDS ORDERED: Dulcolax 10 MG SUPP RC PRN (09:29)
[2020-09-27] MEDS ORDERED: TESTOSTERONE CYPIONATE 200 MG IM SCH (09:30)
[2020-09-27] MEDS ORDERED: Lidoderm Patch 5% TOP PRN (09:56)
[2020-09-27] MEDS ORDERED: LIDOCAINE TP SCH (10:00)
[2020-09-27] MEDS ORDERED: NORVASC 5 MG PO SCH (10:00)
[2020-09-27] MEDS ORDERED: Toprol Xl 100 MG PO SCH (10:00)
[2020-09-27] MEDS ORDERED: LAMOTRIGINE 200 MG PO SCH (10:00)
[2020-09-27] MEDS ORDERED: NON-FORMULARY ITEM (Naloxegol Oxalate [Movantik] 25 MG) PO SCH (10:00)
[2020-09-27] MEDS ORDERED: Miralax Powder 17GM PACKET PO SCH (10:00)
[2020-09-27] MEDS ORDERED: Trileptal 300 MG Tablet PO SCH (10:00)
[2020-09-27] MEDS ORDERED: THERAGRAN MULTIVITAMIN PO SCH (10:00)
[2020-09-27] MEDS ORDERED: ECOTRIN 81 MG PO SCH (10:00)
[2020-09-27] MEDS ORDERED: Mylicon 80MG PO SCH ×2 (10:00)
[2020-09-27] MEDS ORDERED: lamICTAL 100MG TABLET PO SCH (10:00)
[2020-09-27] MEDS ORDERED: NON-FORMULARY ITEM (Multivitamin [Multivitamins] 1 EACH) PO SCH (10:00)
[2020-09-27] MEDS ORDERED: Xylocaine 5% OINTMENT TOP SCH (10:00)
[2020-09-27] MEDS ORDERED: MEDICATION INTERVENTION MC SCH (10:15)
[2020-09-27] MEDS ORDERED: MEDICATION INTERVENTION PO SCH ×2 (10:15)
[2020-09-27] MEDS ORDERED: PLAVIX 75 MG Tablet PO SCH (12:00)
[2020-09-27] MEDS ORDERED: Nitrostat 0.4 MG Tablet SL PRN (12:12)
[2020-09-27] MEDS ORDERED: ZOCOR 20MG PO SCH (17:00)
[2020-09-27] MEDS ORDERED: NON-FORMULARY ITEM (L.Acidoph,Paracasei, B.Lactis [Probiotic] 1 EACH) PO SCH (17:00)
[2020-09-27] MEDS ORDERED: Acidophilus TABLET PO SCH (17:00)
[2020-09-27] MEDS ORDERED: CRANBERRY 15000 MG PO SCH (17:00)
[2020-09-27] MEDS ORDERED: ROCEPHIN 1 Gm-D5w 50 ml Bag** 1 G/50 ML IVPB IV SCH (18:00)
[2020-09-27] MEDS ORDERED: DESYREL 50 MG PO SCH (22:00)
--- NOTE | 2020-10-09 17:21 | PCM.SSS ---
History of Present Illness - Chief Complaint Chief Complaint: Altered mental status, UTI Date: 09/27/20 History of Present Illness: is a 74 year old male. Presented to ER with mild confusion the day prior. Pt. found to have uti and admitted for iv abx and observation of changes in symptoms. - Review of Systems Constitutional: Lethargy Eyes: No Symptoms Ears, Nose, & Throat: No Symptoms Respiratory: No Cough, No Short Of Breath Cardiac: No Chest Pain, No Edema, No Syncope Abdominal/Gastrointestinal: No Abdominal Pain, No Nausea, No Vomiting, No Diarrhea Genitourinary Symptoms: No Dysuria Musculoskeletal: No Back Pain, No Neck Pain Skin: No Rash Neurological: Lethargy, Speech Changes, Other (confusion) Psychological: No Symptoms Endocrine: No Symptoms Hematologic/Lymphatic: No Symptoms Immunological/Allergic: No Symptoms Medications & Allergies Home Medications: Home Medication List Testosterone Cypionate 200 mg IM UD 05/18/16 [History Confirmed 09/27/20] Venlafaxine HCl [Effexor Xr] 150 mg PO DINNER 05/18/16 [History Confirmed 09/27/20] Cranberry 15,000 mg PO DINNER 06/19/16 [History Confirmed 09/27/20] Multivitamin [Multivitamins] 1 each PO QAM 06/19/16 [History Confirmed 09/27/20] Docusate Sodium [Stool Softener] 250 mg PO TID 01/11/17 [History Confirmed 09/27/20] Atorvastatin Calcium [Lipitor] 40 mg PO DINNER 01/18/17 [History Confirmed 09/27/20] Isosorbide Mononitrate [Isosorbide Mononitrate ER] 60 mg PO LUNCH 01/18/17 [His tory Confirmed 09/27/20] Polyethylene Glycol 3350 [Miralax] 17 gm PO QAM 01/18/17 [History Confirmed 09/27/20] Ranolazine 500 MG [Ranexa 500 MG] 500 mg PO BID 01/18/17 [History Confirmed 09/27/20] Bisacodyl 10 mg [Dulcolax 10 MG SUPP] 10 mg RC DAILY PRN PRN 10/09/18 [History Confirmed 09/27/20] L.acidoph,Paracasei, B.lactis [Probiotic] 1 each PO DINNER 10/09/18 [History Confirmed 09/27/20] Naloxegol Oxalate [Movantik] 25 mg PO QAM 10/09/18 [History Confirmed 09/27/20] Simethicone [Gas Relief] 125 mg PO BID 10/09/18 [History Confirmed 09/27/20] lamoTRIgine [Lamotrigine] 200 mg PO DAILY 10/09/18 [History Confirmed 09/27/20] Aspirin [Aspirin EC] 81 mg PO QAM 01/06/19 [History Confirmed 09/27/20] Clopidogrel Bisulfate 75 mg [PLAVIX 75 MG Tablet] 75 mg PO LUNCH 01/06/19 [History Confirmed 09/27/20] Losartan Potassium 50 mg [Cozaar 50 MG] 50 mg PO BID #180 tablet 01/09/19 [Rx Confirmed 09/27/20] Metoprolol Succinate 100 mg [Toprol Xl 100 MG] 100 mg PO DAILY #90 tablet.sa 01/09/19 [Rx Confirmed 09/27/20] Nitroglycerin 0.4 mg (Ed) [Nitrostat 0.4 MG (ED)] 0.4 mg SL UD PRN 03/27/19 [History Confirmed 09/27/20] Trazodone HCl 50 mg [Desyrel 50 mg] 50 mg PO HS 04/03/19 [History Confirmed 09/27/20] Amlodipine Besylate 5 mg [Norvasc 5 mg] 5 mg PO DAILY 03/26/20 [History Confirmed 09/27/20] Lidocaine 1 each TP Q12H PRN PRN 04/22/20 [History Confirmed 09/27/20] Lidocaine 5 gm TP TID 04/22/20 [History Confirmed 09/27/20] OXcarbazepine [Trileptal] 300 mg PO BID 04/22/20 [History Confirmed 09/27/20] Gabapentin [Gralise] 600 mg PO TID 05/15/20 [History Confirmed 09/27/20] Tapentadol HCl [Nucynta ER] 100 mg PO Q4-6HPRN PRN 07/02/20 [History Confirmed 09/27/20] Metformin HCl 500 mg [Glucophage 500 MG] 500 mg PO BID 09/26/20 [History Confirmed 09/27/20] Sulfamethoxazole/Trimethoprim [Bactrim Ds Tablet] 1 each PO BID 14 Days #28 tablet 09/27/20 [Rx] Allergies/Adverse Reactions: Allergies Allergy/AdvReac Type Severity Reaction Status Date / Time No Known Drug Allergies Allergy Verified 07/02/20 07:49 - Past Medical History Past Medical History: Yes Neurological History: Paralysis, Other ENT History: Cataracts Cardiac History: Angina, Congestive Heart Failure, Coronary Artery Disease, High Cholesterol, Hypertension Respiratory History: Bronchitis, COPD, Sleep Apnea Endocrine Medical History: No Pertinent History Musculoskelatal History: Fractures GI Medical History: Colorectal Cancer, GI Bleed History: No Pertinent History Pyscho-Social History: No Pertinent History Male Reproductive Disorders: No Pertinent History Comment: 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 Left leg operation times 3, COLON CA AND RESECTION IN JAN, 2016, CABG 2015, fall 2011, wound on buttock cultured pos. - Social History Smoking Status: Former smoker How long have you smoked: 40 years Exposure to second hand smoke: No Alcohol: None Drug Use: none Significant Family History: heart disease, diabetes - Physical Exam General Appearance: no apparent distress, alert Neurologic Exam: alert, oriented x 3, cooperative, normal mood/affect, nml cereb ellar function, sensation nml, No motor deficits Eye Exam: PERRL/EOMI, eyes nml inspection Ears, Nose, Throat Exam: normal ENT inspection, pharynx normal, moist mucous membranes Neck Exam: normal inspection, non-tender, supple, full range of motion Respiratory Exam: normal breath sounds, lungs clear, No respiratory distress Cardiovascular Exam: regular rate/rhythm, normal heart sounds, normal peripheral pulses Gastrointestinal/Abdomen Exam: soft, normal bowel sounds, No tenderness, No mass Back Exam: normal inspection, normal range of motion, No CVA tenderness, No vertebral tenderness Extremity Exam: normal inspection, normal range of motion, pelvis stable Skin Exam: normal color, warm, dry, No rash Wound Assessment: Skin/Wound Assessment Wound/Incision Assessment Start: 09/26/20 22:42 Text: Status: Active Freq: Q6H Protocol: Document 09/27/20 10:00 RG (Rec: 09/27/20 11:26 RG [id number]) Wound/Incision Assessment Coccyx Wound Assessment Shift Assessment Wound Type Pressure Ulcer Wound Stage Unstageable Drainage Amount Minimal Drainage Description Serosanguineous Drainage Odor None/Absent General Appearance Open to air,Reddened,Blackened ,Bleeding Wound Bed Greatest Portion Red (Granulation) Wound Bed Lesser Portion Yellow (Slough) Surrounding Tissue [place] Comment open to air, 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, small about of serosanguinous drainage noted to sheets Wound Photo Photo Taken Yes Comment: picture in chart Lymphatic Exam: No adenopathy Results - Labs Lab/Micro Results: Microbiology 09/26/20 15:15 Blood Culture Gram Stain - Final Blood Not Reportable Blood Culture - Final NO GROWTH 09/26/20 15:05 Blood Culture Gram Stain - Final Blood Not Reportable Blood Culture - Final NO GROWTH 09/26/20 16:24 Urine Culture - Final Catherized <10K NORMAL SKIN JEFFERSON PROBABLE SKIN CONTAMINANT Assessment/Plan (1) Altered mental status Status: Acute Code(s): R41.82 - ALTERED MENTAL STATUS, UNSPECIFIED (2) UTI (urinary tract infection) Status: Acute Code(s): N39.0 - URINARY TRACT INFECTION, SITE NOT SPECIFIED Hospital Summary - Hospital Course Hospital Course: Pt. admitted to the hospital and started on iv antibiotics, by the following morning patient and reported he was back to baseline and they were ready to go home. - Vitals & Intake/Output Vital Signs: Vital Signs Temperature 97.8 F 09/27/20 07:32 Pulse Rate 79 09/27/20 07:32 Respiratory Rate 18 09/27/20 07:32 Blood Pressure 142/63 09/27/20 07:32 O2 Sat by Pulse Oximetry 93 L 09/27/20 07:32 - Lab Result Diagrams: 09/27/20 05:00 09/27/20 04:45 Micro Results-Entire Visit: Microbiology 09/26/20 15:15 Blood Culture Gram Stain - Final Blood Not Reportable Blood Culture - Final NO GROWTH 09/26/20 15:05 Blood Culture Gram Stain - Final Blood Not Reportable Blood Culture - Final NO GROWTH 09/26/20 16:24 Urine Culture - Final Catherized <10K NORMAL SKIN JEFFERSON PROBABLE SKIN CONTAMINANT - Procedures and Test Procedures and Tests throughout Hospitalization: Therapy Orders & Screens 09/26/20 23:29 BiPap/CPAP ROUTINE Comment: PER HOME SETTINGS Diagnosis: Altered mental status - Discharge Discharge Date: 09/27/20 Disposition: Home, Self-Care Condition: Stable Prescriptions: New Sulfamethoxazole/Trimethoprim [Bactrim Ds Tablet] 1 each PO BID 14 Days #28 tablet No Action Venlafaxine HCl [Effexor Xr] 150 mg PO DINNER Testosterone Cypionate 200 mg IM UD Cranberry 15,000 mg PO DINNER Multivitamin [Multivitamins] 1 each PO QAM Docusate Sodium [Stool Softener] 250 mg PO TID Ranolazine 500 MG [Ranexa 500 MG] 500 mg PO BID Polyethylene Glycol 3350 [Miralax] 17 gm PO QAM Isosorbide Mononitrate [Isosorbide Mononitrate ER] 60 mg PO LUNCH Atorvastatin Calcium [Lipitor] 40 mg PO DINNER Naloxegol Oxalate [Movantik] 25 mg PO QAM Simethicone [Gas Relief] 125 mg PO BID L.acidoph,Paracasei, B.lactis [Probiotic] 1 each PO DINNER Bisacodyl 10 mg [Dulcolax 10 MG SUPP] 10 mg RC DAILY PRN PRN PRN Reason: Constipation lamoTRIgine [Lamotrigine] 200 mg PO DAILY Clopidogrel Bisulfate 75 mg [PLAVIX 75 MG Tablet] 75 mg PO LUNCH Aspirin [Aspirin EC] 81 mg PO QAM Losartan Potassium 50 mg [Cozaar 50 MG] 50 mg PO BID #180 tablet Metoprolol Succinate 100 mg [Toprol Xl 100 MG] 100 mg PO DAILY #90 tablet.sa Nitroglycerin 0.4 mg (Ed) [Nitrostat 0.4 MG (ED)] 0.4 mg SL UD PRN PRN Reason: Chest Pain Trazodone HCl 50 mg [Desyrel 50 mg] 50 mg PO HS Amlodipine Besylate 5 mg [Norvasc 5 mg] 5 mg PO DAILY Lidocaine 1 each TP Q12H PRN PRN PRN Reason: Pain OXcarbazepine [Trileptal] 300 mg PO BID Lidocaine 5 gm TP TID Gabapentin [Gralise] 600 mg PO TID Tapentadol HCl [Nucynta ER] 100 mg PO Q4-6HPRN PRN PRN Reason: pain Metformin HCl 500 mg [Glucophage 500 MG] 500 mg PO BID Instructions: Altered Mental Status (DC) Additional Instructions: RESUME PREVIOUS DOSE OF NUCYNTA CONTINUE WOUND CARE OUTPATIENT THERAPY DISCONTINUE CEFDINIR AT HOME COMPLETE ANTIBIOTIC THERAPY WITH BACTRIM FOR UTI Follow up with: PRERNA LINK MD [Primary Care Provider] - 10/07/20 3:30 pm Forms: Discharge Instructions, Patient Portal Information
== END 2020-09-27 10:59 | disposition home or self-care (01) ==
LOC: ED 13:36 → MED SURG 20:33
PROVIDERS: ADMIT General Practice; ATTEND General Practice
DX: R41.82 Altered mental status, unspecified (principal); N39.0 Urinary tract infection, site not specified; G82.20 Paraplegia, unspecified; E11.9 Type 2 diabetes mellitus without complications; I10 Essential (primary) hypertension; Z79.899 Other long term (current) drug therapy; Z79.01 Long term (current) use of anticoagulants; Z20.828 Contact with and (suspected) exposure to other viral communicable diseases; L89.150 Pressure ulcer of sacral region, unstageable
CPT/HCPCS: 36000; 36415; 70450; 80048; 80053; 81001; 82947; 83605; 83735; 83880; 84484; 85025; 86308; 87040; 87086; 93005; 94660; 94760; 96360; 99285; G0378; U0003; J0696; J1815; J2405; A9270-GY

== ENCOUNTER 2021-05-06 06:14 | Day surgery (SDC) | payer MEDICARE, OTHER ==
[2021-05-06] MEDS ORDERED: Lactated Ringers 1,000 ML IV SCH (06:30)
[2021-05-06] MEDS ORDERED: DIPRIVAN 200 MG/20 ML IV ONE (07:44)
[2021-05-06] MEDS ORDERED: PHENYLEPHRINE HCL ONE (07:46)
[2021-05-06] MEDS ORDERED: Versed 2 MG/2 ML Injection ONE (07:51)
[2021-05-06 08:55] VITALS: O2SAT 96
[2021-05-06 09:45] VITALS: BP 142/78; PULSE 72
--- NOTE | 2021-05-06 10:24 | OP ---
SURGERY DATE/TIME: 05/06/2021 0752 PREOPERATIVE DIAGNOSIS: History of colon cancer. POSTOPERATIVE DIAGNOSIS: Normal colon. PROCEDURE: Colonoscopy. SURGEON: Dr. Scott. ANESTHESIA: MAC. Medications given by anesthesia department. HISTORY: The patient is a 75-year-old white male patient who had colon cancer and partial resection of the colon in 2016. The patient previously had one other colonoscopy since then which was apparently normal. The patient however is paraplegic and has chronic constipation and it is difficult to clean his colon out. The patient received tap water enemas but was still getting brownish liquid at the end of this. Due to the patient's difficulty in getting in here and prepping, we went ahead and elected to go forward with the procedure. The patient was appraised of the risks of the procedure including the risk of perforation, phlebitis, untoward reaction to medication, bleeding and missed lesions. The patient verbalized his understanding and desired to have the procedure performed. DESCRIPTION OF PROCEDURE: The patient was given the medications by the anesthesia department. He had continuous pulse oximetry, ECG monitoring, intermittent blood pressure monitoring during the examination. He was placed in the left lateral decubitus position. Examination revealed a decubitus ulcer on his sacral area which appeared to be somewhat reddened and cracked open. The digital examination was essentially normal otherwise other than external hemorrhoids. No palpable masses and no prostate enlargement. The flexible Olympus pediatric colonoscope was used to intubate the rectum. A view of the colon was developed sequentially to what appeared to be the cecal area. Upon insertion and withdrawal, including a retroflex view in the rectum, no mucosal lesions were encountered. We had to suction the colon of copious amounts of brownish liquid during the examination of at least 600 cc of fluid. We were able to obtain a reasonable good look at the colon however I saw no transition area where the previous colon resection had been performed. No mucosal lesions however being encountered otherwise, the scope was removed from the patient who tolerated the procedure well and was sent back to OP recovery in good condition. The prep was noted to be poor.
== END 2021-05-06 09:30 | disposition home or self-care (01) ==
LOC: SDC 06:14
PROVIDERS: ATTEND Family Medicine
DX: Z08 Encounter for follow-up examination after completed treatment for malignant neoplasm (principal); Z85.038 Personal history of other malignant neoplasm of large intestine; G82.20 Paraplegia, unspecified; K59.09 Other constipation; L89.159 Pressure ulcer of sacral region, unspecified stage; K64.4 Residual hemorrhoidal skin tags
CPT/HCPCS: 82947; 99100; J2250; J2370; J2704

== ENCOUNTER 2021-05-26 15:36 | Observation (INO) | payer MEDICARE, OTHER ==
[2021-05-26] MEDS ORDERED: Sodium Chloride 0.9% 1000 ML 1,000 ML IV STA (15:41)
[2021-05-26] MEDS ORDERED: Hydromorphone 1 mg/ml Injection IV ONE (15:41)
[2021-05-26] MEDS ORDERED: NORVASC 5 MG PO ONE (15:44)
[2021-05-26] MEDS ORDERED: Catapres 0.1 MG PO ONE (15:45)
[2021-05-26] MEDS ORDERED: Hydromorphone 1 mg/ml Injection ONE ×2 (15:50→19:56)
[2021-05-26] MEDS ORDERED: Catapres 0.1 MG ONE (15:51)
[2021-05-26] MEDS ORDERED: Sodium Chloride 0.9% 1000 ML 1,000 ML ONE (15:51)
[2021-05-26] MEDS ORDERED: NORVASC 5 MG ONE (15:51)
[2021-05-26] MEDS ORDERED: VASOTEC I.V. 2.5 MG IV ONE ×3 (15:53→15:57)
[2021-05-26 16:01] LABS: Basophil (Absolute #) 0.01 (0-0.4); Eosinophil (Absolute #) 0 (0-0.5); Hematocrit 48.3 % (42-50); Hemoglobin 15.8 gm/dl (12.5-18.0); Lymphocyte (Absolute #) 2.46 (1.0-4.6); Lymphocytes % 33.2 % (24.0-44.0); Mean Cell Volume 88.6 fl (78-100); Mean Corpuscular Hgb Concent. 32.7 g/dl (32-36); Mean Platelet Volume 9.1 fl (7.5-11.0); Monocyte (Absolute #) 0.55 (0.0-1.3); Monocytes % 7.4 % (0.0-12.0); Neutrophil % 59.3 % (36.0-66.0); Platelet Count 266 K/mm3 (150-450); Red Blood Count 5.45 M/mm3 (4.1-5.6); Red Cell Distribution Width 15.5 % (11.5-14.0); White Blood Count 7.4 K/mm3 (4.0-10.5)
[2021-05-26 16:09] LABS: INR 1.07 (0.8-3.0); PROTIME 12.6 SECONDS (9.4-12.5)
--- NOTE | 2021-05-26 16:10 | ERPHSYRPT ---
- History of Present Illness Time Seen by Provider: 05/26/21 15:45 Source: family, EMS Exam Limitations: clinical condition Patient Subjective Stated Complaint: EMS stated "Pt family called and said that his head and belly has been hurting and this is not normal for him.". PT not answering questions well, will occasionally shake his head. Triage Nursing Assessment: PT presented alert and grunting. Pt trembling, having hard time getting words out. Pt occasionally cusing. Physician History: Upon arrival the patient basically refused or could not answer questions. He did indicate that his head and his belly hurt. Later when his arrived she said that the his mental status is completely off of his baseline he normally is alert talking joking. She says that his cognitive function seemed to have decreased over the course of the day. She says that he has been complaining of head pain and abdominal pain throughout the day. Timing/Duration: today Severity: severe Character of Deficits: impaired speech Deficits: bed-ridden (Patient is paraplegic), cannot walk, unable to stand Baseline/Normal Cognition: alert oriented x 3 Current Cognition: poor alertness Baseline Gait: unable to walk (Patient is paraplegic) Associated Symptoms: nausea, vomiting, seizures Allergies/Adverse Reactions: No Known Drug Allergies Allergy (Verified 05/06/21 06:46) Home Medications: Testosterone Cypionate 200 mg IM UD 05/18/16 [History] Venlafaxine HCl [Effexor Xr] 150 mg PO DINNER 05/18/16 [History] Cranberry 15,000 mg PO DINNER 06/19/16 [History] Multivitamin [Multivitamins] 1 each PO QAM 06/19/16 [History] Docusate Sodium [Stool Softener] 250 mg PO TID 01/11/17 [History] Atorvastatin Calcium [Lipitor] 40 mg PO DINNER 01/18/17 [History] Isosorbide Mononitrate [Isosorbide Mononitrate ER] 60 mg PO LUNCH 01/18/17 [History] Polyethylene Glycol 3350 [Miralax] 17 gm PO QAM 01/18/17 [History] Ranolazine 500 MG [Ranexa 500 MG] 500 mg PO BID 01/18/17 [History] Bisacodyl 10 mg [Dulcolax 10 MG SUPP] 10 mg RC DAILY PRN PRN 10/09/18 [History] L.acidoph,Paracasei, B.lactis [Probiotic] 1 each PO DINNER 10/09/18 [History] Naloxegol Oxalate [Movantik] 25 mg PO QAM 10/09/18 [History] lamoTRIgine [Lamotrigine] 200 mg PO DAILY 10/09/18 [History] Aspirin [Aspirin EC] 81 mg PO QAM 01/06/19 [History] Clopidogrel Bisulfate 75 mg [PLAVIX 75 MG Tablet] 75 mg PO LUNCH 01/06/19 [History] Trazodone HCl 50 mg [Desyrel 50 mg] 50 mg PO HS 04/03/19 [History] Amlodipine Besylate 5 mg [Norvasc 5 mg] 5 mg PO DAILY 03/26/20 [History] OXcarbazepine [Trileptal] 300 mg PO DAILY 04/22/20 [History] Gabapentin [Gralise] 600 mg PO QAM 05/15/20 [History] Tapentadol HCl [Nucynta ER] 100 mg PO Q4-6HPRN PRN 07/02/20 [History] Gabapentin [Gralise] 1,800 mg PO DINNER 02/16/21 [History] Nitroglycerin 0.4 mg SL UD 05/06/21 [History] Simethicone [Gas Relief] 125 mg PO BID 05/06/21 [History] Hx Tetanus, Diphtheria Vaccination/Date Given: No Hx Influenza Vaccination/Date Given: No Hx Pneumococcal Vaccination/Date Given: No Immunizations Up to Date: Yes Travel Risk - International Travel Have you traveled outside of the country in past 3 weeks: No - Coronavirus Screening Are you exhibiting any of the following symptoms?: No - Vaccine Status Have you recieved a Covid-19 vaccination: No - Review of Systems All Other Systems: Unable due to condition - Past Medical History Pertinent Past Medical History: Yes Neurological History: Other ENT History: Cataracts Cardiac History: Coronary Artery Disease, High Cholesterol, Hypertension, Other Respiratory History: Sleep Apnea Endocrine Medical History: Diabetes Type II Musculoskeletal History: Arthritis GI Medical History: Colorectal Cancer, GI Bleed History: No Pertinent History Psycho-Social History: No Pertinent History Male Reproductive Disorders: No Pertinent History Other Medical History: Cardiac stents. Spinal cord injury 2010, quadraplegia. Hx of cervical fx, unable to recall date. watching carotids- scanned apr 2021. pressure wound to bottom- healing and being treated - Past Surgical History Past Surgical History: Yes Neuro Surgical History: No Pertinent History Cardiac: CABG, Cardiac Catheterization, Cardiac Stent Respiratory: No Pertinent History Gastrointestinal: Appendectomy, Cholecystectomy, Colon Resection Genitourinary: Other Musculoskeletal: Orthopedic Surgery Male Surgical History: No Pertinent History Other Surgical History: BACK reconstruction quadrapalegic t3-T7. Left leg operation times 3, COLON CA AND RESECTION IN JAN, 2016, CABG 2015, fall 2011, wound on buttock cultured pos. suprapubic cath attempted only- unsuccessful - Social History Smoking Status: Former smoker How long have you smoked: 40 years Exposure to second hand smoke: No Alcohol Use: None Drug Use: none Patient Lives Alone: Yes Significant Family History: heart disease, diabetes - Nursing Vital Signs Nursing Vital Signs: Initial Vital Signs Temperature 98.6 F 05/26/21 15:37 Pulse Rate 89 05/26/21 15:37 Respiratory Rate 22 05/26/21 15:37 Blood Pressure 192/113 05/26/21 15:37 O2 Sat by Pulse Oximetry 99 05/26/21 15:37 Pain Scale Pain Intensity 8 - Regina Coma Scale Best Eye Response (Rarden): (4) open spontaneously Best Verbal Response (Regina): (4) confused conversation Best Motor Response (Regina): (5) localizes to pain Regina Total: 13 - Physical Exam General Appearance: moderate distress Eye Exam: bilateral eye: PERRL (The left pupil is approximately twice the size of the right both are reactive), EOMI Ears, Nose, Throat Exam: normal ENT inspection Neck Exam: normal inspection, supple Respiratory: normal breath sounds, lungs clear Cardiovascular: irregular, capillary refill <2 sec, edema (Trace pedal edema) Gastrointestinal: soft, normal bowel sounds, tenderness Back Exam: normal inspection Extremity Exam: paralysis, pedal edema Peripheral Pulses: carotid (R): 2+, carotid (L): 2+ Mental Status: disoriented to person, disoriented to place, 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: No PERRL Skin Exam: normal color, warm, dry SpO2 Interpretation: normal SpO2: 99 O2 Delivery: Room Air - Course Nursing assessment & vital signs reviewed: Yes EKG Interpreted by Me: RATE (90), Sinus Rhythm, NORMAL AXIS, Non-specific ST Changes, Other (KG also showed PVCs and a prolonged MS interval as well as nonspecific ST-T wave changes.) - CT Exams Head CT Interpretation: Tele-radiologist Report Abdomen/Pelvis CT Interpretation: Other (Primarily positive for constipation and for massively distended bladder) Ordered Tests: Active Orders 24 hr Category Date Time Status Dinero [Catheter-Bartow Dinero] STAT Care 05/26/21 16:49 Active IV Insertion STAT Care 05/26/21 15:41 Active ABDOMEN AND PELVIS W/0 CONTRAS [CT] Stat Exams 05/26/21 15:41 Completed CHEST 1 VIEW (PORTABLE) Stat Exams 05/26/21 16:04 Completed HEAD WITHOUT CONTRAST [CT] Stat Exams 05/26/21 15:43 Completed AMYLASE Stat Lab 05/26/21 15:55 Completed CBC W DIFF Stat Lab 05/26/21 15:55 Completed CMP Stat Lab 05/26/21 15:55 Completed CULTURE,URINE Stat Lab 05/26/21 17:12 Received LIPASE Stat Lab 05/26/21 15:55 Completed Lactic Acid Stat Lab 05/26/21 15:41 Completed PROTIME WITH INR Stat Lab 05/26/21 15:55 Completed TROPONIN Q3H Lab 05/26/21 15:55 Completed TROPONIN Q3H Lab 05/26/21 18:45 Ordered TROPONIN Q3H Lab 05/26/21 21:45 Ordered TROPONIN Q3H Lab 05/27/21 00:45 Ordered TROPONIN Q3H Lab 05/27/21 03:45 Ordered UA W/RFX UR CULTURE Stat Lab 05/26/21 17:12 Completed Urine Triage Profile Stat Lab 05/26/21 17:12 Received Medication Summary Discontinued Medications Generic Name Dose Route Start Last Admin Trade Name Freq PRN Reason Stop Dose Admin Amlodipine Besylate 10 mg 05/26/21 15:44 05/26/21 15:56 Amlodipine Besylate 5 Mg Tablet PO 05/26/21 15:45 Not Given STAT ONE Amlodipine Besylate Confirm 05/26/21 15:51 Amlodipine Besylate 5 Mg Tablet Administered 05/26/21 15:52 Dose 10 mg .ROUTE .STK-MED ONE Clonidine 0.1 mg 05/26/21 15:45 05/26/21 15:56 Clonidine Hcl 0.1 Mg Tablet PO 05/26/21 15:46 Not Given STAT ONE Clonidine Confirm 05/26/21 15:51 Clonidine Hcl 0.1 Mg Tablet Administered 05/26/21 15:52 Dose 0.1 mg .ROUTE .STK-MED ONE Enalaprilat 5 mg 05/26/21 15:53 05/26/21 15:56 Enalaprilat 2.5 Mg Injection IV 05/26/21 15:54 Not Given STAT ONE Enalaprilat Confirm 05/26/21 15:53 Enalaprilat 2.5 Mg Injection Administered 05/26/21 15:54 Dose 5 mg IV .STK-MED ONE Enalaprilat 2.5 mg 05/26/21 15:57 05/26/21 15:58 Enalaprilat 2.5 Mg Injection IV 05/26/21 15:58 2.5 mg STAT ONE Administration Hydromorphone HCl 1 mg 05/26/21 15:41 05/26/21 15:55 Hydromorphone 1 Mg/1ml Inj 1 Mg/Ml Syringe IV 05/26/21 15:42 1 mg STAT ONE Administration Hydromorphone HCl Confirm 05/26/21 15:50 Hydromorphone 1 Mg/1ml Inj 1 Mg/Ml Syringe Administered 05/26/21 15:51 Dose 1 mg .ROUTE .STK-MED ONE Sodium Chloride 1,000 mls @ 999 mls/hr 05/26/21 15:41 05/26/21 16:57 Sodium Chloride 0.9% 1000 Ml IV 05/26/21 16:41 Infused .Q1H1M STA Infusion Sodium Chloride Confirm 05/26/21 15:51 Sodium Chloride 0.9% 1000 Ml Administered 05/26/21 15:52 Dose 1,000 mls @ ud .ROUTE .STK-MED ONE Lab/Rad Data: Laboratory Result Diagrams 05/26/21 15:55 05/26/21 15:55 Laboratory Results 05/26/21 05/26/21 05/26/21 Range/Units 17:12 15:55 15:55 WBC (4.0-10.5) K/mm3 RBC (4.1-5.6) M/mm3 Hgb (12.5-18.0) gm/dl Hct (42-50) % MCV (78-100) fl MCH (26-32) pg MCHC (32-36) g/dl RDW (11.5-14.0) % Plt Count (150-450) K/mm3 MPV (7.5-11.0) fl Gran % (36.0-66.0) % Eos # (Auto) (0-0.5) Absolute Lymphs (auto) (1.0-4.6) Absolute Monos (auto) (0.0-1.3) Lymphocytes % (24.0-44.0) % Monocytes % (0.0-12.0) % Eosinophils % (0.00-5.0) % Basophils % (0.0-0.4) % Absolute Granulocytes (1.4-6.9) Basophils # (0-0.4) PT 12.6 H (9.4-12.5) SECONDS INR 1.07 (0.8-3.0) Sodium (137-145) mmol/L Potassium (3.5-5.1) mmol/L Chloride (98-107) mmol/L Carbon Dioxide (22-30) mmol/L Anion Gap (5-15) MEQ/L BUN (9-20) mg/dL Creatinine (0.66-1.25) mg/dL Estimated GFR ML/MIN Glucose (74-106) mg/dL Lactic Acid (0.4-2.0) Calcium (8.4-10.2) mg/dL Total Bilirubin (0.2-1.3) mg/dL AST (17-59) U/L ALT (0-50) U/L Alkaline Phosphatase (38-126) U/L Troponin I < 0.012 (0.000-0.034) ng/mL Serum Total Protein (6.3-8.2) g/dL Albumin (3.5-5.0) g/dL Amylase (30-110) U/L Lipase (23-300) U/L Urine Color STRAW (YELLOW) Urine Appearance CLEAR (CLEAR) Urine pH 8.0 (5-6) Ur Specific [place] 1.008 (1.005-1.025) Urine Protein NEGATIVE (Negative) Urine Ketones TRACE (NEGATIVE) Urine Blood NEGATIVE (0-5) Luis M/ul Urine Nitrite NEGATIVE (NEGATIVE) Urine Bilirubin NEGATIVE (NEGATIVE) Urine Urobilinogen NEGATIVE (0-1) mg/dL Ur Leukocyte Esterase TRACE (NEGATIVE) Urine WBC (Auto) 11-15 (0-5) /HPF Urine RBC (Auto) 0-2 (0-2) /HPF U Epithel Cells (Auto) RARE (FEW) /HPF Urine Bacteria (Auto) RARE (NEGATIVE) /HPF Urine Culture Reflexed YES (NO) Urine Glucose NEGATIVE (NEGATIVE) mg/dL 05/26/21 05/26/21 05/26/21 Range/Units 15:55 15:55 15:41 WBC 7.4 (4.0-10.5) K/mm3 RBC 5.45 (4.1-5.6) M/mm3 Hgb 15.8 (12.5-18.0) gm/dl Hct 48.3 (42-50) % MCV 88.6 (78-100) fl MCH 29.0 (26-32) pg MCHC 32.7 (32-36) g/dl RDW 15.5 H (11.5-14.0) % Plt Count 266 (150-450) K/mm3 MPV 9.1 (7.5-11.0) fl Gran % 59.3 (36.0-66.0) % Eos # (Auto) 0 (0-0.5) Absolute Lymphs (auto) 2.46 (1.0-4.6) Absolute Monos (auto) 0.55 (0.0-1.3) Lymphocytes % 33.2 (24.0-44.0) % Monocytes % 7.4 (0.0-12.0) % Eosinophils % 0.0 (0.00-5.0) % Basophils % 0.1 (0.0-0.4) % Absolute Granulocytes 4.40 (1.4-6.9) Basophils # 0.01 (0-0.4) PT (9.4-12.5) SECONDS INR (0.8-3.0) Sodium 139 (137-145) mmol/L Potassium 3.6 (3.5-5.1) mmol/L Chloride 102 (98-107) mmol/L Carbon Dioxide 25 (22-30) mmol/L Anion Gap 15.4 H (5-15) MEQ/L BUN 11 (9-20) mg/dL Creatinine 0.68 (0.66-1.25) mg/dL Estimated GFR > 60.0 ML/MIN Glucose 154 H (74-106) mg/dL Lactic Acid 2.2 H (0.4-2.0) Calcium 10.2 (8.4-10.2) mg/dL Total Bilirubin 0.60 (0.2-1.3) mg/dL AST 34 (17-59) U/L ALT 36 (0-50) U/L Alkaline Phosphatase 191 H (38-126) U/L Troponin I (0.000-0.034) ng/mL Serum Total Protein 7.6 (6.3-8.2) g/dL Albumin 4.5 (3.5-5.0) g/dL Amylase 117 H (30-110) U/L Lipase 865 H (23-300) U/L Urine Color (YELLOW) Urine Appearance (CLEAR) Urine pH (5-6) Ur Specific [place] (1.005-1.025) Urine Protein (Negative) Urine Ketones (NEGATIVE) Urine Blood (0-5) Luis M/ul Urine Nitrite (NEGATIVE) Urine Bilirubin (NEGATIVE) Urine Urobilinogen (0-1) mg/dL Ur Leukocyte Esterase (NEGATIVE) Urine WBC (Auto) (0-5) /HPF Urine RBC (Auto) (0-2) /HPF U Epithel Cells (Auto) (FEW) /HPF Urine Bacteria (Auto) (NEGATIVE) /HPF Urine Culture Reflexed (NO) Urine Glucose (NEGATIVE) mg/dL - Progress Progress: improved Progress Note: 05/26/21 17:38 We did discuss the patient with Dr. Link. Feeling was that perhaps his change in mental status was due to his new pain medicine and that he had some pancreatitis to explain the nausea and the vomiting. The distention in the urinary bladder he does self cath every 4 hours but we will anchor the catheter while he is in the hospital. Discussed with : Pola Will see patient in: hospital (observation) - Departure Departure Disposition: Observation Clinical Impression: Altered mental status, Neurogenic bladder, Pancreatitis Condition: Fair Critical Care Time: No Referrals: PRERNA LINK MD [Primary Care Provider] - Follow up/PCP as directed
[2021-05-26 16:14] LABS: ALBUMIN 4.5 g/dL (3.5-5.0); ALKALINE PHOSPHATASE 191 U/L (38-126); AMYLASE 117 U/L (30-110); ANION GAP 15.4 MEQ/L (5-15); BLOOD UREA NITROGEN 11 mg/dL (9-20); CHLORIDE 102 mmol/L (98-107); Calcium 10.2 mg/dL (8.4-10.2); Carbon Dioxide 25 mmol/L (22-30); Creatinine 1 0.68 mg/dL (0.66-1.25); EST GLOMERULAR FILTRATION RATE > 60.0 ML/MIN; Glucose 154 mg/dL (74-106); LIPASE 865 U/L (23-300); Potassium 3.6 mmol/L (3.5-5.1); SGOT/AST 34 U/L (17-59); SGPT/ALT 36 U/L (0-50); SODIUM 139 mmol/L (137-145); Total Protein 7.6 g/dL (6.3-8.2)
--- NOTE | 2021-05-26 16:23 | XRAY ---
Indication: Fever, cough, and short of breath. Covid 19 symptoms. Comparison: February 16, 2021. Portable chest remains clear. Heart not enlarged again with CABG and coronary artery stent graft. Bony thorax intact again with mild osteopenia, degenerative changes, and multilevel bilateral spinal hardware. Impression: Continued nonacute chest with chronic features.
--- NOTE | 2021-05-26 16:31 | XRAY ---
Indication: Acute mental status change. Headache. Multiple contiguous axial images obtained through the head without contrast. Comparison: September 26, 2020. Again age-appropriate global atrophy and tiny lacunar infarct right basal ganglia. No acute intracranial hemorrhage, abnormal extra-axial fluid collection, or mass effect. Fourth ventricle is midline without hydrocephalus. Bony calvarium intact. Visualized paranasal sinuses and mastoid air cells are clear. Impression: Stable atrophy and tiny lacunar infarct right basal ganglia. No new/acute intracranial abnormalities.
--- NOTE | 2021-05-26 16:35 | XRAY ---
Indication: Abdomen pain. Multiple contiguous axial images obtained through the abdomen and pelvis without contrast. Comparison: April 04, 2021 There is again extensive beam artifact from bilateral T4-T12 spinal hardware. New mild diffuse respiration artifact limits exam. Noncontrasted stomach and bowel loops remain nonobstructed. Again moderate diffuse scattered colonic fecal debris with new moderate rectal impaction. Intact sigmoid anastomosis and cholecystectomy clips. No free fluid/air. Urinary bladder is now markedly distended concerning for outlet obstruction versus neurogenic bladder. Also new moderate bilateral hydronephrosis and mild bilateral hydroureter without calculus. Remaining liver, pancreas, spleen, adrenal glands, kidneys, ureters, and bladder are unremarkable for noncontrast exam. Again mild/moderate scattered aortoiliac calcifications without AAA. Osseous structures again demonstrates osteopenia and moderate degenerative changes throughout the spine/both hips. Impression: 1. Again extensive beam artifact from spinal fusion hardware. New diffuse respiration artifact. 2. New markedly distended urinary bladder, hydronephrosis, and hydroureter. Rule out outlet obstruction versus neurogenic bladder. 3. Worsening diffuse fecal stasis with new rectal impaction. 4. Again scattered arteriosclerotic disease and chronic bony findings.
[2021-05-26 17:28] LABS: Appearance CLEAR (CLEAR); Bacteria RARE /HPF (NEGATIVE); Bilirubin NEGATIVE (NEGATIVE); Blood NEGATIVE Ery/ul (0-5); Epithelial Cells RARE /HPF (FEW); Glucose NEGATIVE (NEGATIVE); Ketones TRACE (NEGATIVE); Leukocyte Esterase TRACE (NEGATIVE); Nitrite NEGATIVE (NEGATIVE); Protein,Urine Dip NEGATIVE (Negative); RBC 0-2 /HPF (0-2); Specific Gravity 1.008 (1.005-1.025); Urobilinogen NEGATIVE mg/dL (0-1)
[2021-05-26 17:41] LABS: Amphetamine,Urine NEGATIVE (NEGATIVE); Barbiturate,Urine NEGATIVE (NEGATIVE); Benzodiazepine,Urine NEGATIVE (NEGATIVE); Cocaine,Urine NEGATIVE (NEGATIVE); Methadone,Urine NEGATIVE (NEGATIVE); Opiate,Urine NEGATIVE (NEGATIVE); PCP,Urine NEGATIVE (NEGATIVE); THC,Urine NEGATIVE (NEGATIVE)
[2021-05-26] MEDS ORDERED: Zofran 4 MG/2 ML VIAL IV PRN (17:41)
[2021-05-26] MEDS ORDERED: Hydromorphone 1 mg/ml Injection IV PRN (17:41)
[2021-05-26 18:38] LABS: INFLUENZA A NEGATIVE (NEGATIVE); INFLUENZA B NEGATIVE (NEGATIVE); RESPIRATORY SYNCTIAL VIRUS NEGATIVE (Negative); SARS-CoV-2 Xpert Express NEGATIVE (NEGATIVE)
[2021-05-26] MEDS ORDERED: Colace 100 MG PO PRN (21:42)
[2021-05-26] MEDS: Hydromorphone 1 mg/ml Injection IV PRN (21:58)
[2021-05-26] MEDS ORDERED: NEURONTIN 300 MG PO SCH (22:00)
[2021-05-26] MEDS ORDERED: ZOCOR 20MG PO SCH (22:00)
[2021-05-26] MEDS ORDERED: Effexor XR 75 MG PO SCH (22:00)
[2021-05-26] MEDS ORDERED: Mylicon DROPS PO SCH (22:00)
[2021-05-26] MEDS: DESYREL 50 MG PO SCH (22:17)
[2021-05-26] MEDS: Cozaar 50 MG PO SCH (22:17)
[2021-05-26] MEDS: Mylicon 80MG PO SCH (22:17)
[2021-05-26] MEDS: Ranexa 500 MG PO SCH (22:18)
[2021-05-26] MEDS: Sodium Chloride 0.9% W/ 20 mEq KCl/LITER 1,000 ML IV SCH (22:28)
[2021-05-27] MEDS: Hydromorphone 1 mg/ml Injection IV PRN ×2 (00:34→20:25)
[2021-05-27 05:10] LABS: Absolute Neutrophil Ct (ANC) 2.63 (1.4-6.9); Basophil (Absolute #) 0.01 (0-0.4); Eosinophil (Absolute #) 0 (0-0.5); Hematocrit 42.8 % (42-50); Hemoglobin 13.6 gm/dl (12.5-18.0); Lymphocytes % 36.8 % (24.0-44.0); Mean Cell Volume 91.3 fl (78-100); Mean Corpuscular Hgb Concent. 31.8 g/dl (32-36); Mean Platelet Volume 9.5 fl (7.5-11.0); Monocytes % 14.7 % (0.0-12.0); Neutrophil % 48.3 % (36.0-66.0); Platelet Count 224 K/mm3 (150-450); Red Blood Count 4.69 M/mm3 (4.1-5.6); Red Cell Distribution Width 15.7 % (11.5-14.0); White Blood Count 5.4 K/mm3 (4.0-10.5)
[2021-05-27 05:36] LABS: ALBUMIN 3.5 g/dL (3.5-5.0); ALKALINE PHOSPHATASE 196 U/L (38-126); ANION GAP 10.1 MEQ/L (5-15); BLOOD UREA NITROGEN 12 mg/dL (9-20); CHLORIDE 107 mmol/L (98-107); Calcium 8.7 mg/dL (8.4-10.2); Carbon Dioxide 25 mmol/L (22-30); Creatinine 1 0.72 mg/dL (0.66-1.25); EST GLOMERULAR FILTRATION RATE > 60.0 ML/MIN; Glucose 153 mg/dL (74-106); Potassium 3.6 mmol/L (3.5-5.1); SGOT/AST 74 U/L (17-59); SGPT/ALT 48 U/L (0-50); SODIUM 138 mmol/L (137-145); Total Protein 6.3 g/dL (6.3-8.2)
[2021-05-27] MEDS: Sodium Chloride 0.9% W/ 20 mEq KCl/LITER 1,000 ML IV SCH ×2 (09:08→19:51)
[2021-05-27] MEDS ORDERED: IMODIUM 2 MG PO PRN (09:25)
[2021-05-27] MEDS ORDERED: Dulcolax 10 MG SUPP RC PRN (09:25)
[2021-05-27] MEDS ORDERED: TESTOSTERONE CYPIONATE 200 MG/ML IM SCH (09:30)
[2021-05-27] MEDS ORDERED: Nitrostat 0.4 MG Tablet SL PRN (09:30)
[2021-05-27] MEDS ORDERED: MEDICATION INTERVENTION MC SCH (10:00)
[2021-05-27] MEDS ORDERED: NON-FORMULARY ITEM (Gabapentin [Gralise] 600 MG Tab.Er.24h) PO SCH ×2 (10:00→17:00)
[2021-05-27] MEDS ORDERED: NON-FORMULARY ITEM (Multivitamin [Multivitamins] 1 EACH Capsule) PO SCH (10:00)
[2021-05-27] MEDS ORDERED: OXCARBAZEPINE 150 MG PO SCH (10:00)
[2021-05-27] MEDS ORDERED: LAMOTRIGINE PO SCH (10:00)
[2021-05-27] MEDS ORDERED: MEDICATION INTERVENTION PO SCH ×4 (10:00)
[2021-05-27] MEDS ORDERED: METHYLNALTREXONE BROMIDE 150 MG PO SCH (10:00)
[2021-05-27] MEDS ORDERED: NALOXEGOL OXALATE 12.5 MG PO SCH (10:00)
[2021-05-27] MEDS ORDERED: HUMALOG SQ PRN (10:38)
[2021-05-27] MEDS: Toprol Xl 100 MG PO SCH (10:50)
[2021-05-27] MEDS: Miralax Powder 17GM PACKET PO SCH (10:50)
[2021-05-27] MEDS: Mylicon 80MG PO SCH ×2 (10:50→21:06)
[2021-05-27] MEDS: PROTONIX 40 MG IV IV SCH (10:50)
[2021-05-27] MEDS: Ranexa 500 MG PO SCH ×2 (10:51→21:06)
[2021-05-27] MEDS: KEFLEX 250 MG PO SCH (10:51)
[2021-05-27] MEDS: THERAGRAN MULTIVITAMIN PO SCH (10:51)
[2021-05-27] MEDS: NORVASC 5 MG PO SCH (10:51)
[2021-05-27] MEDS: lamICTAL 100MG TABLET PO SCH (10:51)
[2021-05-27] MEDS: Cozaar 50 MG PO SCH ×2 (10:51→21:05)
[2021-05-27] MEDS: Trileptal 300 MG Tablet PO SCH (10:51)
[2021-05-27] MEDS: ECOTRIN 81 MG PO SCH (10:51)
[2021-05-27] MEDS ORDERED: Imdur 60MG PO SCH (12:00)
[2021-05-27] MEDS ORDERED: PLAVIX 75 MG Tablet PO SCH (12:00)
--- NOTE | 2021-05-27 13:01 | PCM.HP ---
History of Present Illness - Chief Complaint Chief Complaint: altered mental status for 8 hours History of Present Illness: is a 75 year old male.refused or could not answer questions. He did indicate that his head and his belly hurt. Later when his arrived she said that the his mental status is completely off of his baseline he normally is alert talking joking. She says that his cognitive function seemed to have decreased over the course of the day. She says that he has been complaining of head pain and abdominal pain throughout the day. Timing/Duration: today Severity: severe Character of Deficits: impaired speech Deficits: bed-ridden (Patient is paraplegic), cannot walk, unable to stand Baseline/Normal Cognition: alert oriented x 3 Current Cognition: poor alertness Baseline Gait: unable to walk (Patient is paraplegic) Associated Symptoms: nausea, vomiting, seizures - Review of Systems Constitutional: Lethargy, Weakness, No Fever, No Chills Eyes: No Symptoms Ears, Nose, & Throat: No Symptoms Respiratory: No Cough, No Short Of Breath Cardiac: No Chest Pain, No Edema, No Syncope Abdominal/Gastrointestinal: No Abdominal Pain, No Nausea, No Vomiting, No Diarrhea Genitourinary Symptoms: No Dysuria Musculoskeletal: No Back Pain, No Neck Pain Skin: No Rash Neurological: Lethargy, Paralysis, Speech Changes, No Dizziness, No Focal Weakness, No Sensory Changes Psychological: No Symptoms Endocrine: No Symptoms Hematologic/Lymphatic: No Symptoms Immunological/Allergic: No Symptoms Medications & Allergies Home Medications: Home Medication List Testosterone Cypionate 200 mg IM UD 05/18/16 [History Confirmed 05/26/21] Venlafaxine HCl [Effexor Xr] 150 mg PO DINNER 05/18/16 [History Confirmed 05/26/21] Cranberry 15,000 mg PO DINNER 06/19/16 [History Confirmed 05/26/21] Multivitamin [Multivitamins] 1 each PO QAM 06/19/16 [History Confirmed 05/26/21] Docusate Sodium [Stool Softener] 250 mg PO TID 01/11/17 [History Confirmed 05/26/21] Atorvastatin Calcium [Lipitor] 40 mg PO DINNER 01/18/17 [History Confirmed 05/26/21] Isosorbide Mononitrate [Isosorbide Mononitrate ER] 60 mg PO LUNCH 01/18/17 [History Confirmed 05/26/21] Polyethylene Glycol 3350 [Miralax] 17 gm PO QAM 01/18/17 [History Confirmed 05/26/21] Ranolazine 500 MG [Ranexa 500 MG] 500 mg PO BID 01/18/17 [History Confirmed 05/26/21] Bisacodyl 10 mg [Dulcolax 10 MG SUPP] 10 mg RC DAILY PRN PRN 10/09/18 [History Confirmed 05/26/21] L.acidoph,Paracasei, B.lactis [Probiotic] 1 each PO DINNER 10/09/18 [History Confirmed 05/26/21] Naloxegol Oxalate [Movantik] 25 mg PO QAM 10/09/18 [History Confirmed 05/26/21] lamoTRIgine [Lamotrigine] 200 mg PO DAILY 10/09/18 [History Confirmed 05/26/21] Aspirin [Aspirin EC] 81 mg PO QAM 01/06/19 [History Confirmed 05/26/21] Clopidogrel Bisulfate 75 mg [PLAVIX 75 MG Tablet] 75 mg PO LUNCH 01/06/19 [History Confirmed 05/26/21] Losartan Potassium 50 mg [Cozaar 50 MG] 50 mg PO BID #180 tablet 01/09/19 [Rx Confirmed 05/26/21] Metoprolol Succinate 100 mg [Toprol Xl 100 MG] 100 mg PO DAILY #90 tablet.sa 01/09/19 [Rx Confirmed 05/26/21] Trazodone HCl 50 mg [Desyrel 50 mg] 50 mg PO HS 04/03/19 [History Confirmed 05/26/21] Amlodipine Besylate 5 mg [Norvasc 5 mg] 5 mg PO DAILY 03/26/20 [History Confirmed 05/26/21] OXcarbazepine [Trileptal] 300 mg PO DAILY 04/22/20 [History Confirmed 05/26/21] Gabapentin [Gralise] 600 mg PO QAM 05/15/20 [History Confirmed 05/26/21] Gabapentin [Gralise] 1,800 mg PO DINNER 02/16/21 [History Confirmed 05/26/21] Loperamide HCl 2 mg [Imodium 2 mg] 1 - 2 tab PO Q4H PRN PRN 15 Days #30 02/18/21 [Rx Confirmed 05/26/21] Nitroglycerin 0.4 mg SL UD 05/06/21 [History Confirmed 05/26/21] Simethicone [Gas Relief] 125 mg PO BID 05/06/21 [History Confirmed 05/26/21] Buprenorphine HCl [Belbuca] 900 mcg BC Q12H 05/26/21 [History Confirmed 05/26/21] Cephalexin Mh 250 mg [Keflex 250 mg] 250 mg PO DAILY 05/26/21 [History Confirmed 05/26/21] Methylnaltrexone [place] [Relistor] 450 mg PO QAM 05/26/21 [History Confirmed 05/26/21] Allergies/Adverse Reactions: Allergies Allergy/AdvReac Type Severity Reaction Status Date / Time No Known Drug Allergies Allergy Verified 05/06/21 06:46 - Past Medical History Past Medical History: Yes Neurological History: Other ENT History: Cataracts Cardiac History: Coronary Artery Disease, High Cholesterol, Hypertension, Other Respiratory History: Sleep Apnea Endocrine Medical History: Diabetes Type II Musculoskelatal History: Arthritis GI Medical History: Colorectal Cancer, GI Bleed History: No Pertinent History Pyscho-Social History: No Pertinent History Male Reproductive Disorders: No Pertinent History Comment: Cardiac stents. Spinal cord injury 2010, quadraplegia. Hx of cervical fx, unable to recall date. watching carotids- scanned apr 2021. pressure wound to bottom- healing and being treated - Past Surgical History Past Surgical History: Yes Neuro Surgical History: No Pertinent History Cardiac History: CABG, Cardiac Catheterization, Cardiac Stent Respiratory Surgery: No Pertinent History GI Surgical History: Appendectomy, Cholecystectomy, Colon Resection Genitourinary Surgical Hx: Other Musculskeletal Surgical Hx: Orthopedic Surgery Male Surgical History: No Pertinent History Other Surgical History: BACK reconstruction quadrapalegic t3-T7. Left leg operation times 3, COLON CA AND RESECTION IN JAN, 2016, CABG 2015, fall 2011, wound on buttock cultured pos. suprapubic cath attempted only- unsuccessful - Social History Smoking Status: Former smoker How long have you smoked: 40 years Exposure to second hand smoke: No Alcohol: None Drug Use: none Significant Family History: heart disease, diabetes - Physical Exam Vital Signs: Vital Signs - 24 hr Temp Pulse Resp BP Pulse Ox 05/27/21 08:00 98.2 F 72 19 135/62 98 05/27/21 06:58 95 05/27/21 04:00 97.1 F 75 16 140/65 100 05/27/21 00:00 16 05/26/21 23:40 97.1 F 75 16 137/64 98 05/26/21 22:45 98 05/26/21 20:33 97.5 F 92 H 16 159/77 99 05/26/21 17:41 99 05/26/21 17:12 97.9 F 84 20 136/104 98 05/26/21 16:38 83 17 192/89 100 05/26/21 15:37 98.6 F 89 22 192/113 99 General Appearance: no apparent distress, mild distress Neurologic Exam: motor deficits, sensory deficit, disoriented, confusion Eye Exam: PERRL/EOMI, eyes nml inspection Ears, Nose, Throat Exam: normal ENT inspection, TMs normal, pharynx normal, moist mucous membranes Neck Exam: normal inspection, non-tender, supple, full range of motion Respiratory Exam: normal breath sounds, lungs clear, No respiratory distress Cardiovascular Exam: regular rate/rhythm, normal heart sounds, normal peripheral pulses Gastrointestinal/Abdomen Exam: soft, normal bowel sounds, No tenderness, No mass Back Exam: normal inspection, normal range of motion, No CVA tenderness, No vertebral tenderness Extremity Exam: pelvis stable Skin Exam: normal color, warm, dry, No rash Lymphatic Exam: No adenopathy Results - Labs Lab/Micro Results: Lab Results-Last 24 Hours 05/26/21 05/26/21 05/26/21 Range/Units 15:41 15:55 15:55 WBC 7.4 (4.0-10.5) K/mm3 RBC 5.45 (4.1-5.6) M/mm3 Hgb 15.8 (12.5-18.0) gm/dl Hct 48.3 (42-50) % MCV 88.6 (78-100) fl MCH 29.0 (26-32) pg MCHC 32.7 (32-36) g/dl RDW 15.5 H (11.5-14.0) % Plt Count 266 (150-450) K/mm3 MPV 9.1 (7.5-11.0) fl Gran % 59.3 (36.0-66.0) % Eos # (Auto) 0 (0-0.5) Absolute Lymphs (auto) 2.46 (1.0-4.6) Absolute Monos (auto) 0.55 (0.0-1.3) Lymphocytes % 33.2 (24.0-44.0) % Monocytes % 7.4 (0.0-12.0) % Eosinophils % 0.0 (0.00-5.0) % Basophils % 0.1 (0.0-0.4) % Absolute Granulocytes 4.40 (1.4-6.9) Basophils # 0.01 (0-0.4) PT (9.4-12.5) SECONDS INR (0.8-3.0) Sodium 139 (137-145) mmol/L Potassium 3.6 (3.5-5.1) mmol/L Chloride 102 (98-107) mmol/L Carbon Dioxide 25 (22-30) mmol/L Anion Gap 15.4 H (5-15) MEQ/L BUN 11 (9-20) mg/dL Creatinine 0.68 (0.66-1.25) mg/dL Estimated GFR > 60.0 ML/MIN Glucose 154 H (74-106) mg/dL POC Glucometer (74 to 106) mg/dL Hemoglobin A1c (4.5-6.0) % Lactic Acid 2.2 H (0.4-2.0) Calcium 10.2 (8.4-10.2) mg/dL Total Bilirubin 0.60 (0.2-1.3) mg/dL AST 34 (17-59) U/L ALT 36 (0-50) U/L Alkaline Phosphatase 191 H (38-126) U/L Troponin I (0.000-0.034) ng/mL Serum Total Protein 7.6 (6.3-8.2) g/dL Albumin 4.5 (3.5-5.0) g/dL Amylase 117 H (30-110) U/L Lipase 865 H (23-300) U/L Urine Color (YELLOW) Urine Appearance (CLEAR) Urine pH (5-6) Ur Specific [place] (1.005-1.025) Urine Protein (Negative) Urine Ketones (NEGATIVE) Urine Blood (0-5) Luis M/ul Urine Nitrite (NEGATIVE) Urine Bilirubin (NEGATIVE) Urine Urobilinogen (0-1) mg/dL Ur Leukocyte Esterase (NEGATIVE) Urine WBC (Auto) (0-5) /HPF Urine RBC (Auto) (0-2) /HPF U Epithel Cells (Auto) (FEW) /HPF Urine Bacteria (Auto) (NEGATIVE) /HPF Urine Culture Reflexed (NO) Urine Glucose (NEGATIVE) mg/dL Urine Opiates Level (NEGATIVE) Ur Methadone (NEGATIVE) Urine Barbiturates (NEGATIVE) Ur Phencyclidine (PCP) (NEGATIVE) Urine Amphetamine (NEGATIVE) U Benzodiazepine Level (NEGATIVE) Urine Cocaine (NEGATIVE) Urine Marijuana (THC) (NEGATIVE) Influenza Type A Ag (NEGATIVE) Influenza Type B Ag (NEGATIVE) RSV (PCR) (Negative) SARS-CoV-2 (PCR) (NEGATIVE) 05/26/21 05/26/21 05/26/21 Range/Units 15:55 15:55 17:12 WBC (4.0-10.5) K/mm3 RBC (4.1-5.6) M/mm3 Hgb (12.5-18.0) gm/dl Hct (42-50) % MCV (78-100) fl MCH (26-32) pg MCHC (32-36) g/dl RDW (11.5-14.0) % Plt Count (150-450) K/mm3 MPV (7.5-11.0) fl Gran % (36.0-66.0) % Eos # (Auto) (0-0.5) Absolute Lymphs (auto) (1.0-4.6) Absolute Monos (auto) (0.0-1.3) Lymphocytes % (24.0-44.0) % Monocytes % (0.0-12.0) % Eosinophils % (0.00-5.0) % Basophils % (0.0-0.4) % Absolute Granulocytes (1.4-6.9) Basophils # (0-0.4) PT 12.6 H (9.4-12.5) SECONDS INR 1.07 (0.8-3.0) Sodium (137-145) mmol/L Potassium (3.5-5.1) mmol/L Chloride (98-107) mmol/L Carbon Dioxide (22-30) mmol/L Anion Gap (5-15) MEQ/L BUN (9-20) mg/dL Creatinine (0.66-1.25) mg/dL Estimated GFR ML/MIN Glucose (74-106) mg/dL POC Glucometer (74 to 106) mg/dL Hemoglobin A1c (4.5-6.0) % Lactic Acid (0.4-2.0) Calcium (8.4-10.2) mg/dL Total Bilirubin (0.2-1.3) mg/dL AST (17-59) U/L ALT (0-50) U/L Alkaline Phosphatase (38-126) U/L Troponin I < 0.012 (0.000-0.034) ng/mL Serum Total Protein (6.3-8.2) g/dL Albumin (3.5-5.0) g/dL Amylase (30-110) U/L Lipase (23-300) U/L Urine Color STRAW (YELLOW) Urine Appearance CLEAR (CLEAR) Urine pH 8.0 (5-6) Ur Specific [place] 1.008 (1.005-1.025) Urine Protein NEGATIVE (Negative) Urine Ketones TRACE (NEGATIVE) Urine Blood NEGATIVE (0-5) Luis M/ul Urine Nitrite NEGATIVE (NEGATIVE) Urine Bilirubin NEGATIVE (NEGATIVE) Urine Urobilinogen NEGATIVE (0-1) mg/dL Ur Leukocyte Esterase TRACE (NEGATIVE) Urine WBC (Auto) 11-15 (0-5) /HPF Urine RBC (Auto) 0-2 (0-2) /HPF U Epithel Cells (Auto) RARE (FEW) /HPF Urine Bacteria (Auto) RARE (NEGATIVE) /HPF Urine Culture Reflexed YES (NO) Urine Glucose NEGATIVE (NEGATIVE) mg/dL Urine Opiates Level (NEGATIVE) Ur Methadone (NEGATIVE) Urine Barbiturates (NEGATIVE) Ur Phencyclidine (PCP) (NEGATIVE) Urine Amphetamine (NEGATIVE) U Benzodiazepine Level (NEGATIVE) Urine Cocaine (NEGATIVE) Urine Marijuana (THC) (NEGATIVE) Influenza Type A Ag (NEGATIVE) Influenza Type B Ag (NEGATIVE) RSV (PCR) (Negative) SARS-CoV-2 (PCR) (NEGATIVE) 05/26/21 05/26/21 05/26/21 Range/Units 17:12 17:54 17:54 WBC (4.0-10.5) K/mm3 RBC (4.1-5.6) M/mm3 Hgb (12.5-18.0) gm/dl Hct (42-50) % MCV (78-100) fl MCH (26-32) pg MCHC (32-36) g/dl RDW (11.5-14.0) % Plt Count (150-450) K/mm3 MPV (7.5-11.0) fl Gran % (36.0-66.0) % Eos # (Auto) (0-0.5) Absolute Lymphs (auto) (1.0-4.6) Absolute Monos (auto) (0.0-1.3) Lymphocytes % (24.0-44.0) % Monocytes % (0.0-12.0) % Eosinophils % (0.00-5.0) % Basophils % (0.0-0.4) % Absolute Granulocytes (1.4-6.9) Basophils # (0-0.4) PT (9.4-12.5) SECONDS INR (0.8-3.0) Sodium (137-145) mmol/L Potassium (3.5-5.1) mmol/L Chloride (98-107) mmol/L Carbon Dioxide (22-30) mmol/L Anion Gap (5-15) MEQ/L BUN (9-20) mg/dL Creatinine (0.66-1.25) mg/dL Estimated GFR ML/MIN Glucose (74-106) mg/dL POC Glucometer (74 to 106) mg/dL Hemoglobin A1c (4.5-6.0) % Lactic Acid (0.4-2.0) Calcium (8.4-10.2) mg/dL Total Bilirubin (0.2-1.3) mg/dL AST (17-59) U/L ALT (0-50) U/L Alkaline Phosphatase (38-126) U/L Troponin I < 0.012 (0.000-0.034) ng/mL Serum Total Protein (6.3-8.2) g/dL Albumin (3.5-5.0) g/dL Amylase (30-110) U/L Lipase (23-300) U/L Urine Color (YELLOW) Urine Appearance (CLEAR) Urine pH (5-6) Ur Specific [place] (1.005-1.025) Urine Protein (Negative) Urine Ketones (NEGATIVE) Urine Blood (0-5) Luis M/ul Urine Nitrite (NEGATIVE) Urine Bilirubin (NEGATIVE) Urine Urobilinogen (0-1) mg/dL Ur Leukocyte Esterase (NEGATIVE) Urine WBC (Auto) (0-5) /HPF Urine RBC (Auto) (0-2) /HPF U Epithel Cells (Auto) (FEW) /HPF Urine Bacteria (Auto) (NEGATIVE) /HPF Urine Culture Reflexed (NO) Urine Glucose (NEGATIVE) mg/dL Urine Opiates Level NEGATIVE (NEGATIVE) Ur Methadone NEGATIVE (NEGATIVE) Urine Barbiturates NEGATIVE (NEGATIVE) Ur Phencyclidine (PCP) NEGATIVE (NEGATIVE) Urine Amphetamine NEGATIVE (NEGATIVE) U Benzodiazepine Level NEGATIVE (NEGATIVE) Urine Cocaine NEGATIVE (NEGATIVE) Urine Marijuana (THC) NEGATIVE (NEGATIVE) Influenza Type A Ag NEGATIVE (NEGATIVE) Influenza Type B Ag NEGATIVE (NEGATIVE) RSV (PCR) NEGATIVE (Negative) SARS-CoV-2 (PCR) NEGATIVE (NEGATIVE) 05/26/21 05/26/21 05/26/21 Range/Units 18:01 21:08 21:20 WBC (4.0-10.5) K/mm3 RBC (4.1-5.6) M/mm3 Hgb (12.5-18.0) gm/dl Hct (42-50) % MCV (78-100) fl MCH (26-32) pg MCHC (32-36) g/dl RDW (11.5-14.0) % Plt Count (150-450) K/mm3 MPV (7.5-11.0) fl Gran % (36.0-66.0) % Eos # (Auto) (0-0.5) Absolute Lymphs (auto) (1.0-4.6) Absolute Monos (auto) (0.0-1.3) Lymphocytes % (24.0-44.0) % Monocytes % (0.0-12.0) % Eosinophils % (0.00-5.0) % Basophils % (0.0-0.4) % Absolute Granulocytes (1.4-6.9) Basophils # (0-0.4) PT (9.4-12.5) SECONDS INR (0.8-3.0) Sodium (137-145) mmol/L Potassium (3.5-5.1) mmol/L Chloride (98-107) mmol/L Carbon Dioxide (22-30) mmol/L Anion Gap (5-15) MEQ/L BUN (9-20) mg/dL Creatinine (0.66-1.25) mg/dL Estimated GFR ML/MIN Glucose (74-106) mg/dL POC Glucometer 136 H (74 to 106) mg/dL Hemoglobin A1c (4.5-6.0) % Lactic Acid 1.9 (0.4-2.0) Calcium (8.4-10.2) mg/dL Total Bilirubin (0.2-1.3) mg/dL AST (17-59) U/L ALT (0-50) U/L Alkaline Phosphatase (38-126) U/L Troponin I 0.012 (0.000-0.034) ng/mL Serum Total Protein (6.3-8.2) g/dL Albumin (3.5-5.0) g/dL Amylase (30-110) U/L Lipase (23-300) U/L Urine Color (YELLOW) Urine Appearance (CLEAR) Urine pH (5-6) Ur Specific [place] (1.005-1.025) Urine Protein (Negative) Urine Ketones (NEGATIVE) Urine Blood (0-5) Luis M/ul Urine Nitrite (NEGATIVE) Urine Bilirubin (NEGATIVE) Urine Urobilinogen (0-1) mg/dL Ur Leukocyte Esterase (NEGATIVE) Urine WBC (Auto) (0-5) /HPF Urine RBC (Auto) (0-2) /HPF U Epithel Cells (Auto) (FEW) /HPF Urine Bacteria (Auto) (NEGATIVE) /HPF Urine Culture Reflexed (NO) Urine Glucose (NEGATIVE) mg/dL Urine Opiates Level (NEGATIVE) Ur Methadone (NEGATIVE) Urine Barbiturates (NEGATIVE) Ur Phencyclidine (PCP) (NEGATIVE) Urine Amphetamine (NEGATIVE) U Benzodiazepine Level (NEGATIVE) Urine Cocaine (NEGATIVE) Urine Marijuana (THC) (NEGATIVE) Influenza Type A Ag (NEGATIVE) Influenza Type B Ag (NEGATIVE) RSV (PCR) (Negative) SARS-CoV-2 (PCR) (NEGATIVE) 05/27/21 05/27/21 05/27/21 Range/Units 04:00 04:30 07:12 WBC 5.4 (4.0-10.5) K/mm3 RBC 4.69 (4.1-5.6) M/mm3 Hgb 13.6 (12.5-18.0) gm/dl Hct 42.8 (42-50) % MCV 91.3 (78-100) fl MCH 29.0 (26-32) pg MCHC 31.8 L (32-36) g/dl RDW 15.7 H (11.5-14.0) % Plt Count 224 (150-450) K/mm3 MPV 9.5 (7.5-11.0) fl Gran % 48.3 (36.0-66.0) % Eos # (Auto) 0 (0-0.5) Absolute Lymphs (auto) 2.00 (1.0-4.6) Absolute Monos (auto) 0.80 (0.0-1.3) Lymphocytes % 36.8 (24.0-44.0) % Monocytes % 14.7 H (0.0-12.0) % Eosinophils % 0.0 (0.00-5.0) % Basophils % 0.2 (0.0-0.4) % Absolute Granulocytes 2.63 (1.4-6.9) Basophils # 0.01 (0-0.4) PT (9.4-12.5) SECONDS INR (0.8-3.0) Sodium 138 (137-145) mmol/L Potassium 3.6 (3.5-5.1) mmol/L Chloride 107 (98-107) mmol/L Carbon Dioxide 25 (22-30) mmol/L Anion Gap 10.1 (5-15) MEQ/L BUN 12 (9-20) mg/dL Creatinine 0.72 (0.66-1.25) mg/dL Estimated GFR > 60.0 ML/MIN Glucose 153 H (74-106) mg/dL POC Glucometer 160 H (74 to 106) mg/dL Hemoglobin A1c (4.5-6.0) % Lactic Acid (0.4-2.0) Calcium 8.7 (8.4-10.2) mg/dL Total Bilirubin 1.30 (0.2-1.3) mg/dL AST 74 H (17-59) U/L ALT 48 (0-50) U/L Alkaline Phosphatase 196 H (38-126) U/L Troponin I (0.000-0.034) ng/mL Serum Total Protein 6.3 (6.3-8.2) g/dL Albumin 3.5 (3.5-5.0) g/dL Amylase (30-110) U/L Lipase (23-300) U/L Urine Color (YELLOW) Urine Appearance (CLEAR) Urine pH (5-6) Ur Specific [place] (1.005-1.025) Urine Protein (Negative) Urine Ketones (NEGATIVE) Urine Blood (0-5) Luis M/ul Urine Nitrite (NEGATIVE) Urine Bilirubin (NEGATIVE) Urine Urobilinogen (0-1) mg/dL Ur Leukocyte Esterase (NEGATIVE) Urine WBC (Auto) (0-5) /HPF Urine RBC (Auto) (0-2) /HPF U Epithel Cells (Auto) (FEW) /HPF Urine Bacteria (Auto) (NEGATIVE) /HPF Urine Culture Reflexed (NO) Urine Glucose (NEGATIVE) mg/dL Urine Opiates Level (NEGATIVE) Ur Methadone (NEGATIVE) Urine Barbiturates (NEGATIVE) Ur Phencyclidine (PCP) (NEGATIVE) Urine Amphetamine (NEGATIVE) U Benzodiazepine Level (NEGATIVE) Urine Cocaine (NEGATIVE) Urine Marijuana (THC) (NEGATIVE) Influenza Type A Ag (NEGATIVE) Influenza Type B Ag (NEGATIVE) RSV (PCR) (Negative) SARS-CoV-2 (PCR) (NEGATIVE) 05/27/21 Range/Units 10:00 WBC (4.0-10.5) K/mm3 RBC (4.1-5.6) M/mm3 Hgb (12.5-18.0) gm/dl Hct (42-50) % MCV (78-100) fl MCH (26-32) pg MCHC (32-36) g/dl RDW (11.5-14.0) % Plt Count (150-450) K/mm3 MPV (7.5-11.0) fl Gran % (36.0-66.0) % Eos # (Auto) (0-0.5) Absolute Lymphs (auto) (1.0-4.6) Absolute Monos (auto) (0.0-1.3) Lymphocytes % (24.0-44.0) % Monocytes % (0.0-12.0) % Eosinophils % (0.00-5.0) % Basophils % (0.0-0.4) % Absolute Granulocytes (1.4-6.9) Basophils # (0-0.4) PT (9.4-12.5) SECONDS INR (0.8-3.0) Sodium (137-145) mmol/L Potassium (3.5-5.1) mmol/L Chloride (98-107) mmol/L Carbon Dioxide (22-30) mmol/L Anion Gap (5-15) MEQ/L BUN (9-20) mg/dL Creatinine (0.66-1.25) mg/dL Estimated GFR ML/MIN Glucose (74-106) mg/dL POC Glucometer (74 to 106) mg/dL Hemoglobin A1c 6.30 H (4.5-6.0) % Lactic Acid (0.4-2.0) Calcium (8.4-10.2) mg/dL Total Bilirubin (0.2-1.3) mg/dL AST (17-59) U/L ALT (0-50) U/L Alkaline Phosphatase (38-126) U/L Troponin I (0.000-0.034) ng/mL Serum Total Protein (6.3-8.2) g/dL Albumin (3.5-5.0) g/dL Amylase (30-110) U/L Lipase (23-300) U/L Urine Color (YELLOW) Urine Appearance (CLEAR) Urine pH (5-6) Ur Specific [place] (1.005-1.025) Urine Protein (Negative) Urine Ketones (NEGATIVE) Urine Blood (0-5) Luis M/ul Urine Nitrite (NEGATIVE) Urine Bilirubin (NEGATIVE) Urine Urobilinogen (0-1) mg/dL Ur Leukocyte Esterase (NEGATIVE) Urine WBC (Auto) (0-5) /HPF Urine RBC (Auto) (0-2) /HPF U Epithel Cells (Auto) (FEW) /HPF Urine Bacteria (Auto) (NEGATIVE) /HPF Urine Culture Reflexed (NO) Urine Glucose (NEGATIVE) mg/dL Urine Opiates Level (NEGATIVE) Ur Methadone (NEGATIVE) Urine Barbiturates (NEGATIVE) Ur Phencyclidine (PCP) (NEGATIVE) Urine Amphetamine (NEGATIVE) U Benzodiazepine Level (NEGATIVE) Urine Cocaine (NEGATIVE) Urine Marijuana (THC) (NEGATIVE) Influenza Type A Ag (NEGATIVE) Influenza Type B Ag (NEGATIVE) RSV (PCR) (Negative) SARS-CoV-2 (PCR) (NEGATIVE) Microbiology 05/26/21 17:12 Urine Culture - Preliminary Clean Catch Midstream NO GROWTH TO DATE Accuchecks Date 05/27/21 Date 05/26/21 Time 07:10 Time 21:12 - Radiology Impressions Radiology Exams & Impressions: Radiology Procedures Category Date Time Status ABDOMEN AND PELVIS W/0 CONTRAS [CT] Stat Exams 05/26/21 15:41 Completed CHEST 1 VIEW (PORTABLE) Stat Exams 05/26/21 16:04 Completed HEAD WITHOUT CONTRAST [CT] Stat Exams 05/26/21 15:[address]/HEAD WITHOUT CONTRAST Indication: Acute mental status change. Headache. Multiple contiguous axial images obtained through the head without contrast. Comparison: September 26, 2020. Again age-appropriate global atrophy and tiny lacunar infarct right basal ganglia. No acute intracranial hemorrhage, abnormal extra-axial fluid collection, or mass effect. Fourth ventricle is midline without hydrocephalus. Bony calvarium intact. Visualized paranasal sinuses and mastoid air cells are clear. Impression: Stable atrophy and tiny lacunar infarct right basal ganglia. No new/acute intracranial abnormalities. CT/ABDOMEN AND PELVIS W/0 CONTRAS Indication: Abdomen pain. Multiple contiguous axial images obtained through the abdomen and pelvis without contrast. Comparison: April 04, 2021 There is again extensive beam artifact from bilateral T4-T12 spinal hardware. New mild diffuse respiration artifact limits exam. Noncontrasted stomach and bowel loops remain nonobstructed. Again moderate diffuse scattered colonic fecal debris with new moderate rectal impaction. Intact sigmoid anastomosis and cholecystectomy clips. No free fluid/air. Urinary bladder is now markedly distended concerning for outlet obstruction versus neurogenic bladder. Also new moderate bilateral hydronephrosis and mild bilateral hydroureter without calculus. Remaining liver, pancreas, spleen, adrenal glands, kidneys, ureters, and bladder are unremarkable for noncontrast exam. Again mild/moderate scattered aortoiliac calcifications without AAA. Osseous structures again demonstrates osteopenia and moderate degenerative changes throughout the spine/both hips. Impression: 1. Again extensive beam artifact from spinal fusion hardware. New diffuse respiration artifact. 2. New markedly distended urinary bladder, hydronephrosis, and hydroureter. Rule out outlet obstruction versus neurogenic bladder. 3. Worsening diffuse fecal stasis with new rectal impaction. 4. Again scattered arteriosclerotic disease and chronic bony findings. - Other Procedures and Tests Respiratory Therapy 05/27/21 00:57 Oxygen Nasal Cannula 4 lpm Assessment/Plan (1) Narcotic induced mental alteration Current Visit: Yes Status: Acute Assessment & Plan: Chief Complaint Diagnosis altered mental status for 8 hours Allergies Allergy/AdvReac Type Severity Reaction Status Date / Time No Known Drug Allergies Allergy Verified 05/06/21 06:46 Vital Signs (Last 24 hours) Temp Pulse Resp BP Pulse Ox 05/27/21 08:00 98.2 F 72 19 135/62 98 05/27/21 06:58 95 05/27/21 04:00 97.1 F 75 16 140/65 100 05/27/21 00:00 16 05/26/21 23:40 97.1 F 75 16 137/64 98 05/26/21 22:45 98 05/26/21 20:33 97.5 F 92 H 16 159/77 99 05/26/21 17:41 99 05/26/21 17:12 97.9 F 84 20 136/104 98 05/26/21 16:38 83 17 192/89 100 05/26/21 15:37 98.6 F 89 22 192/113 99 Home Medications Medication Instructions Recorded Confirmed Last Taken Type Buprenorphine HCl [Belbuca] 900 mcg BC Q12H 05/26/21 05/26/21 Unknown History Cephalexin Mh 250 mg [Keflex 250 250 mg PO DAILY 05/26/21 05/26/21 Unknown History mg] Methylnaltrexone [place] [Relistor] 450 mg PO QAM 05/26/21 05/26/21 Unknown History Current Medications Generic Name Dose Route Start Last Admin Trade Name Freq PRN Reason Stop Dose Admin Amlodipine Besylate 5 mg 05/27/21 10:00 05/27/21 10:51 Amlodipine Besylate 5 Mg Tablet PO 06/26/21 09:59 5 mg DAILY SHAI Administration Aspirin 81 mg 05/27/21 10:00 05/27/21 10:51 Aspirin 81 Mg Tablet.Ec PO 06/26/21 09:59 81 mg QAM SHAI Administration Bisacodyl 10 mg 05/27/21 09:25 Bisacodyl 10 Mg Supp.Rect RC 06/26/21 09:24 DAILY PRN PRN CONSTIPATION Cephalexin HCl 250 mg 05/27/21 10:00 03/15/22 10:51 Cephalexin Mh 250 Mg Capsule PO 06/26/21 09:59 250 mg DAILY SHAI Administration Clopidogrel Bisulfate 75 mg 05/27/21 12:00 Clopidogrel Bisulfate 75 Mg Tablet PO 06/26/21 11:59 LUNCH SHAI Docusate Sodium 200 mg 05/26/21 21:42 Docusate Sodium 100 Mg Capsule PO 06/25/21 21:41 TID PRN PRN CONSTIPATION Hydromorphone HCl 2 mg 05/26/21 21:03 05/27/21 00:34 Hydromorphone 1 Mg/1ml Inj 1 Mg/Ml Syringe IV 05/31/21 21:02 2 mg Q2H PRN PRN Administration SEVERE PAIN Potassium Chloride/Sodium Chloride 1,000 mls @ 100 mls/hr 05/26/21 17:45 05/27/21 09:08 Sodium Chloride 0.9% W/ 20 Meq Kcl/Liter IV 06/25/21 17:44 100 mls/hr .Q10H SHAI Administration Insulin Human Lispro 0 unit 05/27/21 10:38 Insulin Lispro 1 Unit SQ 06/26/21 10:37 UD PRN HYPERGLYCEMIA Isosorbide Mononitrate 60 mg 05/27/21 12:00 Isosorbide Mononitrate 60 Mg Tab PO 06/26/21 11:59 LUNCH SHAI Lactobacillus Acidophilus 1 tab 05/27/21 17:00 Lactobacillus Acidophilus 1 Tab Tablet PO 06/26/21 16:59 DINNER SHAI Lamotrigine 200 mg 05/27/21 10:00 05/27/21 10:51 Lamotrigine 100 Mg Tab PO 06/26/21 09:59 200 mg DAILY SHAI Administration Loperamide HCl 0 mg 05/27/21 09:25 Loperamide Hcl 2 Mg Capsule PO 06/26/21 09:24 Q4H PRN PRN DIARRHEA Losartan Potassium 50 mg 05/26/21 22:00 05/27/21 10:51 Losartan Potassium 50 Mg Tablet PO 06/25/21 21:59 50 mg BID SHAI Administration Metoprolol Succinate 100 mg 05/27/21 10:00 05/27/21 10:50 Metoprolol Succinate 100 Mg Tablet.Sa PO 06/26/21 09:59 100 mg DAILY SHAI Administration Miscellaneous Information 1 each 05/27/21 10:00 Medication Intervention 1 Each Each PO 06/26/21 09:59 .RN TO CHECK ON SHAI Miscellaneous Information 1 each 05/27/21 10:00 Medication Intervention 1 Each Each PO 06/26/21 09:59 .RN TO CHECK ON SHAI Miscellaneous Information 1 each 05/27/21 10:00 Medication Intervention 1 Each Each PO 06/26/21 09:59 .RN TO CHECK ON SHAI Miscellaneous Information 1 each 05/27/21 10:00 Medication Intervention 1 Each Each PO 06/26/21 09:59 .RN TO CHECK ON SHAI Miscellaneous Information 1 each 05/27/21 10:00 Medication Intervention 1 Each Each MC 06/26/21 09:59 .RN TO CHECK ON SHAI Multivitamins Therapeutic 1 tab 05/27/21 10:00 05/27/21 10:51 Multivitamins,Therapeutic 1 Tab Tab PO 06/26/21 09:59 1 tab QAM SHAI Administration Nitroglycerin 0.4 mg 05/27/21 09:30 Nitroglycerin 0.4 Mg Tablet Bottle SL 06/26/21 09:29 UD PRN Ondansetron HCl 4 mg 05/26/21 17:41 Ondansetron Hcl 4 Mg/2 Ml Vial IV 06/25/21 17:40 Q6H PRN PRN NAUSEA/VOMITING Oxcarbazepine 300 mg 05/27/21 10:00 05/27/21 10:51 Oxcarbazepine 300 Mg Tab PO 06/26/21 09:59 300 mg DAILY SHAI Administration Pantoprazole Sodium 40 mg 05/27/21 10:00 05/27/21 10:50 Pantoprazole 40 Mg Vial IV 06/26/21 09:59 40 mg Q24H10 SHAI Administration Polyethylene Glycol 17 gm 05/27/21 10:00 05/27/21 10:50 Polyethylene Glycol 3350 17 Gm Packet PO 06/26/21 09:59 17 gm QAM SHAI Administration Ranolazine 500 mg 05/26/21 22:00 05/27/21 10:51 Ranolazine 500 Mg Tab.Sr.12h PO 06/25/21 21:59 500 mg Q12HT SHAI Administration Simethicone 120 mg 05/26/21 22:00 05/27/21 10:50 Simethicone 80 Mg Tab.Chew PO 06/25/21 21:59 120 mg BID SHAI Administration Simvastatin 40 mg 05/27/21 17:00 Simvastatin 20 Mg Tablet PO 06/25/21 21:59 DINNER SHAI Trazodone HCl 50 mg 05/26/21 22:00 05/26/21 22:17 Trazodone Hcl 50 Mg Tablet PO 06/25/21 21:59 50 mg HS SHAI Administration Venlafaxine HCl 150 mg 05/27/21 17:00 Venlafaxine Hcl 75 Mg Extended Release Capsule PO 06/25/21 21:59 DINNER SHAI Discontinued Medications Generic Name Dose Route Start Last Admin Trade Name Richieq PRN Reason Stop Dose Admin Amlodipine Besylate 10 mg 05/26/21 15:44 05/26/21 15:56 Amlodipine Besylate 5 Mg Tablet PO 05/26/21 15:45 Not Given STAT ONE Amlodipine Besylate Confirm 05/26/21 15:51 Amlodipine Besylate 5 Mg Tablet Administered 05/26/21 15:52 Dose 10 mg .ROUTE .STK-MED ONE Clonidine 0.1 mg 05/26/21 15:45 05/26/21 15:56 Clonidine Hcl 0.1 Mg Tablet PO 05/26/21 15:46 Not Given STAT ONE Clonidine Confirm 05/26/21 15:51 Clonidine Hcl 0.1 Mg Tablet Administered 05/26/21 15:52 Dose 0.1 mg .ROUTE .STK-MED ONE Enalaprilat 5 mg 05/26/21 15:53 05/26/21 15:56 Enalaprilat 2.5 Mg Injection IV 05/26/21 15:54 Not Given STAT ONE Enalaprilat Confirm 05/26/21 15:53 Enalaprilat 2.5 Mg Injection Administered 05/26/21 15:54 Dose 5 mg IV .STK-MED ONE Enalaprilat 2.5 mg 05/26/21 15:57 05/26/21 15:58 Enalaprilat 2.5 Mg Injection IV 05/26/21 15:58 2.5 mg STAT ONE Administration Gabapentin 1,800 mg 05/26/21 22:00 05/26/21 22:18 Gabapentin 300 Mg Capsule PO 06/25/21 21:59 1,800 mg HS SHAI Administration Hydromorphone HCl 1 mg 05/26/21 15:41 05/26/21 15:55 Hydromorphone 1 Mg/1ml Inj 1 Mg/Ml Syringe IV 05/26/21 15:42 1 mg STAT ONE Administration Hydromorphone HCl Confirm 05/26/21 15:50 Hydromorphone 1 Mg/1ml Inj 1 Mg/Ml Syringe Administered 05/26/21 15:51 Dose 1 mg .ROUTE .STK-MED ONE Hydromorphone HCl 1 mg 05/26/21 17:41 05/26/21 19:57 Hydromorphone 1 Mg/1ml Inj 1 Mg/Ml Syringe IV 05/31/21 17:40 1 mg Q4H PRN PRN Administration PAIN Hydromorphone HCl Confirm 05/26/21 19:56 Hydromorphone 1 Mg/1ml Inj 1 Mg/Ml Syringe Administered 05/26/21 19:57 Dose 1 mg .ROUTE .STK-MED ONE Sodium Chloride 1,000 mls @ 999 mls/hr 05/26/21 15:41 05/26/21 16:57 Sodium Chloride 0.9% 1000 Ml IV 05/26/21 16:41 Infused .Q1H1M STA Infusion Sodium Chloride Confirm 05/26/21 15:51 Sodium Chloride 0.9% 1000 Ml Administered 05/26/21 15:52 Dose 1,000 mls @ ud .ROUTE .STK-MED ONE Simethicone 120 mg 05/26/21 22:00 05/26/21 22:52 Simethicone 40 Mg/0.6 Ml Drops PO 06/25/21 21:59 Not Given BID SHAI Simvastatin 40 mg 05/26/21 22:00 05/26/21 22:18 Simvastatin 20 Mg Tablet PO 06/25/21 21:59 40 mg HS SHAI Administration Venlafaxine HCl 150 mg 05/26/21 22:00 05/26/21 22:17 Venlafaxine Hcl 75 Mg Extended Release Capsule PO 06/25/21 21:59 150 mg HS SHAI Administration Intake & Output (Last 24 hours) 05/25/21 05/26/21 05/27/21 05/28/21 11:59 11:59 11:59 11:59 Intake Total 924 Output Total 1500 Balance -576 Weight 90.4 kg Microbiology Results (Last 24 hours) 05/26/21 17:12 Clean Catch Midstream Urine Culture - Preliminary NO GROWTH TO DATE Laboratory Results (Last 24 hours) 05/27/21 05/27/21 05/27/21 12:56 10:00 07:12 WBC RBC Hgb Hct MCV MCH MCHC RDW Plt Count MPV Gran % Eos # (Auto) Absolute Lymphs (auto) Absolute Monos (auto) Lymphocytes % Monocytes % Eosinophils % Basophils % Absolute Granulocytes Basophils # PT INR Sodium Potassium Chloride Carbon Dioxide Anion Gap BUN Creatinine Estimated GFR Glucose POC Glucometer 160 H 160 H Hemoglobin A1c 6.30 H Lactic Acid Calcium Total Bilirubin AST ALT Alkaline Phosphatase Troponin I Serum Total Protein Albumin Amylase Lipase Urine Color Urine Appearance Urine pH Ur Specific [place] Urine Protein Urine Ketones Urine Blood Urine Nitrite Urine Bilirubin Urine Urobilinogen Ur Leukocyte Esterase Urine WBC (Auto) Urine RBC (Auto) U Epithel Cells (Auto) Urine Bacteria (Auto) Urine Culture Reflexed Urine Glucose Urine Opiates Level Ur Methadone Urine Barbiturates Ur Phencyclidine (PCP) Urine Amphetamine U Benzodiazepine Level Urine Cocaine Urine Marijuana (THC) Influenza Type A Ag Influenza Type B Ag RSV (PCR) SARS-CoV-2 (PCR) 05/27/21 05/27/21 05/26/21 04:30 04:00 21:20 WBC 5.4 RBC 4.69 Hgb 13.6 Hct 42.8 MCV 91.3 MCH 29.0 MCHC 31.8 L RDW 15.7 H Plt Count 224 MPV 9.5 Gran % 48.3 Eos # (Auto) 0 Absolute Lymphs (auto) 2.00 Absolute Monos (auto) 0.80 Lymphocytes % 36.8 Monocytes % 14.7 H Eosinophils % 0.0 Basophils % 0.2 Absolute Granulocytes 2.63 Basophils # 0.01 PT INR Sodium 138 Potassium 3.6 Chloride 107 Carbon Dioxide 25 Anion Gap 10.1 BUN 12 Creatinine 0.72 Estimated GFR > 60.0 Glucose 153 H POC Glucometer Hemoglobin A1c Lactic Acid Calcium 8.7 Total Bilirubin 1.30 AST 74 H ALT 48 Alkaline Phosphatase 196 H Troponin I 0.012 Serum Total Protein 6.3 Albumin 3.5 Amylase Lipase Urine Color Urine Appearance Urine pH Ur Specific [place] Urine Protein Urine Ketones Urine Blood Urine Nitrite Urine Bilirubin Urine Urobilinogen Ur Leukocyte Esterase Urine WBC (Auto) Urine RBC (Auto) U Epithel Cells (Auto) Urine Bacteria (Auto) Urine Culture Reflexed Urine Glucose Urine Opiates Level Ur Methadone Urine Barbiturates Ur Phencyclidine (PCP) Urine Amphetamine U Benzodiazepine Level Urine Cocaine Urine Marijuana (THC) Influenza Type A Ag Influenza Type B Ag RSV (PCR) SARS-CoV-2 (PCR) 05/26/21 05/26/21 05/26/21 21:08 18:01 17:54 WBC RBC Hgb Hct MCV MCH MCHC RDW Plt Count MPV Gran % Eos # (Auto) Absolute Lymphs (auto) Absolute Monos (auto) Lymphocytes % Monocytes % Eosinophils % Basophils % Absolute Granulocytes Basophils # PT INR Sodium Potassium Chloride Carbon Dioxide Anion Gap BUN Creatinine Estimated GFR Glucose POC Glucometer 136 H Hemoglobin A1c Lactic Acid 1.9 Calcium Total Bilirubin AST ALT Alkaline Phosphatase Troponin I Serum Total Protein Albumin Amylase Lipase Urine Color Urine Appearance Urine pH Ur Specific [place] Urine Protein Urine Ketones Urine Blood Urine Nitrite Urine Bilirubin Urine Urobilinogen Ur Leukocyte Esterase Urine WBC (Auto) Urine RBC (Auto) U Epithel Cells (Auto) Urine Bacteria (Auto) Urine Culture Reflexed Urine Glucose Urine Opiates Level Ur Methadone Urine Barbiturates Ur Phencyclidine (PCP) Urine Amphetamine U Benzodiazepine Level Urine Cocaine Urine Marijuana (THC) Influenza Type A Ag NEGATIVE Influenza Type B Ag NEGATIVE RSV (PCR) NEGATIVE SARS-CoV-2 (PCR) NEGATIVE 05/26/21 05/26/21 05/26/21 17:54 17:12 17:12 WBC RBC Hgb Hct MCV MCH MCHC RDW Plt Count MPV Gran % Eos # (Auto) Absolute Lymphs (auto) Absolute Monos (auto) Lymphocytes % Monocytes % Eosinophils % Basophils % Absolute Granulocytes Basophils # PT INR Sodium Potassium Chloride Carbon Dioxide Anion Gap BUN Creatinine Estimated GFR Glucose POC Glucometer Hemoglobin A1c Lactic Acid Calcium Total Bilirubin AST ALT Alkaline Phosphatase Troponin I < 0.012 Serum Total Protein Albumin Amylase Lipase Urine Color STRAW Urine Appearance CLEAR Urine pH 8.0 Ur Specific [place] 1.008 Urine Protein NEGATIVE Urine Ketones TRACE Urine Blood NEGATIVE Urine Nitrite NEGATIVE Urine Bilirubin NEGATIVE Urine Urobilinogen NEGATIVE Ur Leukocyte Esterase TRACE Urine WBC (Auto) 11-15 Urine RBC (Auto) 0-2 U Epithel Cells (Auto) RARE Urine Bacteria (Auto) RARE Urine Culture Reflexed YES Urine Glucose NEGATIVE Urine Opiates Level NEGATIVE Ur Methadone NEGATIVE Urine Barbiturates NEGATIVE Ur Phencyclidine (PCP) NEGATIVE Urine Amphetamine NEGATIVE U Benzodiazepine Level NEGATIVE Urine Cocaine NEGATIVE Urine Marijuana (THC) NEGATIVE Influenza Type A Ag Influenza Type B Ag RSV (PCR) SARS-CoV-2 (PCR) 05/26/21 05/26/21 05/26/21 15:55 15:55 15:55 WBC RBC Hgb Hct MCV MCH MCHC RDW Plt Count MPV Gran % Eos # (Auto) Absolute Lymphs (auto) Absolute Monos (auto) Lymphocytes % Monocytes % Eosinophils % Basophils % Absolute Granulocytes Basophils # PT 12.6 H INR 1.07 Sodium 139 Potassium 3.6 Chloride 102 Carbon Dioxide 25 Anion Gap 15.4 H BUN 11 Creatinine 0.68 Estimated GFR > 60.0 Glucose 154 H POC Glucometer Hemoglobin A1c Lactic Acid Calcium 10.2 Total Bilirubin 0.60 AST 34 ALT 36 Alkaline Phosphatase 191 H Troponin I < 0.012 Serum Total Protein 7.6 Albumin 4.5 Amylase 117 H Lipase 865 H Urine Color Urine Appearance Urine pH Ur Specific [place] Urine Protein Urine Ketones Urine Blood Urine Nitrite Urine Bilirubin Urine Urobilinogen Ur Leukocyte Esterase Urine WBC (Auto) Urine RBC (Auto) U Epithel Cells (Auto) Urine Bacteria (Auto) Urine Culture Reflexed Urine Glucose Urine Opiates Level Ur Methadone Urine Barbiturates Ur Phencyclidine (PCP) Urine Amphetamine U Benzodiazepine Level Urine Cocaine Urine Marijuana (THC) Influenza Type A Ag Influenza Type B Ag RSV (PCR) SARS-CoV-2 (PCR) 05/26/21 05/26/21 15:55 15:41 WBC 7.4 RBC 5.45 Hgb 15.8 Hct 48.3 MCV 88.6 MCH 29.0 MCHC 32.7 RDW 15.5 H Plt Count 266 MPV 9.1 Gran % 59.3 Eos # (Auto) 0 Absolute Lymphs (auto) 2.46 Absolute Monos (auto) 0.55 Lymphocytes % 33.2 Monocytes % 7.4 Eosinophils % 0.0 Basophils % 0.1 Absolute Granulocytes 4.40 Basophils # 0.01 PT INR Sodium Potassium Chloride Carbon Dioxide Anion Gap BUN Creatinine Estimated GFR Glucose POC Glucometer Hemoglobin A1c Lactic Acid 2.2 H Calcium Total Bilirubin AST ALT Alkaline Phosphatase Troponin I Serum Total Protein Albumin Amylase Lipase Urine Color Urine Appearance Urine pH Ur Specific [place] Urine Protein Urine Ketones Urine Blood Urine Nitrite Urine Bilirubin Urine Urobilinogen Ur Leukocyte Esterase Urine WBC (Auto) Urine RBC (Auto) U Epithel Cells (Auto) Urine Bacteria (Auto) Urine Culture Reflexed Urine Glucose Urine Opiates Level Ur Methadone Urine Barbiturates Ur Phencyclidine (PCP) Urine Amphetamine U Benzodiazepine Level Urine Cocaine Urine Marijuana (THC) Influenza Type A Ag Influenza Type B Ag RSV (PCR) SARS-CoV-2 (PCR) Orders (Last 24 hours) Category Date Time Status Bedrest ROUTINE Activity 05/26/21 17:45 Active Code Status Order ROUTINE Care 05/26/21 17:42 Active Dinero [Catheter-Julian Dinero] STAT Care 05/26/21 16:49 Completed IV Care Q6H Care 05/26/21 17:42 Active IV Insertion STAT Care 05/26/21 15:41 Completed Neuro Checks Q4H Care 05/26/21 17:41 Active POCT Glucose Check ACHS Care 05/26/21 17:[address] in Observation ROUTINE Care 05/26/21 17:42 Active Telemetry q6h Care 05/26/21 17:41 Active Vital Signs Q4H Care 05/26/21 17:41 Active Weight,Daily 0600 Care 05/26/21 17:41 Active House Regular Diet Diet 05/27/21 Lunch Active ABDOMEN AND PELVIS W/0 CONTRAS [CT] Stat Exams 05/26/21 15:41 Completed CHEST 1 VIEW (PORTABLE) Stat Exams 05/26/21 16:04 Completed HEAD WITHOUT CONTRAST [CT] Stat Exams 05/26/21 15:43 Completed AMYLASE Stat Lab 05/26/21 15:55 Completed CBC W DIFF AM.LAB Lab 05/27/21 04:00 Completed CBC W DIFF Stat Lab 05/26/21 15:55 Completed CMP AM.LAB Lab 05/27/21 04:30 Completed CMP Stat Lab 05/26/21 15:55 Completed CULTURE,URINE Stat Lab 05/26/21 17:12 Results HEMOGLOBIN A1C Urgent Lab 05/27/21 10:00 Completed LIPASE Stat Lab 05/26/21 15:55 Completed Lactic Acid Stat Lab 05/26/21 15:41 Completed Lactic Acid Stat Lab 05/26/21 18:01 Completed POCT GLUCOSE Stat Lab 05/26/21 21:08 Completed POCT GLUCOSE Stat Lab 05/27/21 07:12 Completed POCT GLUCOSE Stat Lab 05/27/21 12:56 Completed PROTIME WITH INR Stat Lab 05/26/21 15:55 Completed TROPONIN Q3H Lab 05/26/21 15:55 Completed TROPONIN Q3H Lab 05/26/21 17:54 Completed TROPONIN Q3H Lab 05/26/21 21:20 Completed UA W/RFX UR CULTURE Stat Lab 05/26/21 17:12 Completed Urine Triage Profile Stat Lab 05/26/21 17:12 Completed Amlodipine Besylate 5 mg [Norvasc 5 mg] Med 05/26/21 15:51 Discontinued 10 mg .ROUTE .STK-MED ONE Amlodipine Besylate 5 mg [Norvasc 5 mg] Med 05/26/21 15:44 Discontinued 10 mg PO STAT ONE Amlodipine Besylate 5 mg [Norvasc 5 mg] Med 05/27/21 10:00 Active 5 mg PO DAILY Aspirin EC 81 mg [Ecotrin 81 mg] Med 05/27/21 10:00 Active 81 mg PO QAM Bisacodyl 10 mg [Dulcolax 10 MG SUPP] Med 05/27/21 09:25 Active 10 mg RC DAILY PRN PRN Cephalexin Mh 250 mg [Keflex 250 mg] Med 05/27/21 10:00 Active 250 mg PO DAILY Clonidine HCl 0.1 mg [Catapres 0.1 MG] Med 05/26/21 15:51 Discontinued 0.1 mg .ROUTE .STK-MED ONE Clonidine HCl 0.1 mg [Catapres 0.1 MG] Med 05/26/21 15:45 Discontinued 0.1 mg PO STAT ONE Clopidogrel Bisulfate 75 mg [PLAVIX 75 MG Tablet] Med 05/27/21 12:00 Active 75 mg PO LUNCH Docusate Sodium 100 mg [Colace 100 MG] Med 05/26/21 21:42 Active 200 mg PO TID PRN PRN Enalaprilat 2.5 mg Inj [Vasotec I.v. 2.5 mg] Med 05/26/21 15:57 Discontinued 2.5 mg IV STAT ONE Enalaprilat 2.5 mg Inj [Vasotec I.v. 2.5 mg] Med 05/26/21 15:53 Discontinued 5 mg IV .STK-MED ONE Enalaprilat 2.5 mg Inj [Vasotec I.v. 2.5 mg] Med 05/26/21 15:53 Discontinued 5 mg IV STAT ONE Gabapentin 300 mg [Neurontin 300 mg] Med 05/26/21 22:00 Discontinued 1,800 mg PO HS Hydromorphone 1 mg/1Ml Inj [Hydromorphone 1 mg/ml Med 05/26/21 15:50 Discontinued Injection] 1 mg .ROUTE .STK-MED ONE Hydromorphone 1 mg/1Ml Inj [Hydromorphone 1 mg/ml Med 05/26/21 19:56 Discontinued Injection] 1 mg .ROUTE .STK-MED ONE Hydromorphone 1 mg/1Ml Inj [Hydromorphone 1 mg/ml [facility] 05/26/21 17:41 Discontinued Injection] 1 mg IV Q4H PRN PRN Hydromorphone 1 mg/1Ml Inj [Hydromorphone 1 mg/ml [facility] 05/26/21 15:41 Discontinued Injection] 1 mg IV STAT ONE Hydromorphone 1 mg/1Ml Inj [Hydromorphone 1 mg/ml [facility] 05/26/21 21:03 Active Injection] 2 mg IV Q2H PRN PRN Insulin Lispro [Humalog] Med 05/27/21 10:38 Active See Dose Instructions SQ UD PRN Isosorbide Mononitrate 60 mg [Imdur 60MG] Med 05/27/21 12:00 Active 60 mg PO LUNCH Lactobacillus Acidophilus [Acidophilus TABLET] Med 05/27/21 17:00 Active 1 tab PO DINNER Lamotrigine 100 mg [lamICTAL 100MG TABLET] Med 05/27/21 10:00 Active 200 mg PO DAILY Loperamide HCl 2 mg [Imodium 2 mg] Med 05/27/21 09:25 Active 0 mg PO Q4H PRN PRN Losartan Potassium 50 mg [Cozaar 50 MG] Med 05/26/21 22:00 Active 50 mg PO BID Medication Intervention Med 05/27/21 10:00 Active 1 each MC .RN TO CHECK ON Medication Intervention Med 05/27/21 10:00 Active 1 each PO .RN TO CHECK ON Medication Intervention Med 05/27/21 10:00 Active 1 each PO .RN TO CHECK ON Medication Intervention Med 05/27/21 10:00 Active 1 each PO .RN TO CHECK ON Medication Intervention Med 05/27/21 10:00 Active 1 each PO .RN TO CHECK ON Metoprolol Succinate 100 mg [Toprol Xl 100 MG] Med 05/27/21 10:00 Active 100 mg PO DAILY Multivitamins,Therapeutic Tab* [Theragran Multivitamin* Med 05/27/21 10:00 Active ] 1 tab PO QAM NaCl 0.9% 1000 ml + KCl 20 Meq [Sodium Chloride 0.9% W/ Med 05/26/21 17:45 Active 20 mEq KCl/LITER] 1,000 ml IV 100 mls/hr NaCl 0.9% 1000 ml [Sodium Chloride 0.9% 1000 ML] 1,000 Med 05/26/21 15:51 Discontinued ml .ROUTE UD NaCl 0.9% 1000 ml [Sodium Chloride 0.9% 1000 ML] 1,000 Med 05/26/21 15:41 Discontinued ml IV 999 mls/hr Nitroglycerin 0.4 mg Tablet [Nitrostat 0.4 MG Tablet Med 05/27/21 09:30 Active ] 0.4 mg SL UD PRN Ondansetron HCl 4 mg/2 ml [Zofran 4 MG/2 ML VIAL] Med 05/26/21 17:41 Active 4 mg IV Q6H PRN PRN Oxcarbazepine 300 mg [Trileptal 300 MG Tablet] Med 05/27/21 10:00 Active 300 mg PO DAILY Pantoprazole 40 mg [Protonix 40 mg IV] Med 05/27/21 10:00 Active 40 mg IV Q24H10 Polyethylene Glycol 3350 17 gm [Miralax Powder 17GM Med 05/27/21 10:00 Active PACKET] 17 gm PO QAM Ranolazine 500 MG [Ranexa 500 MG] Med 05/26/21 22:00 Active 500 mg PO Q12HT Simethicone 40 mg/0.6 ml [Mylicon DROPS] Med 05/26/21 22:00 Discontinued 120 mg PO BID Simethicone 80 mg [Mylicon 80MG] Med 05/26/21 22:00 Active 120 mg PO BID Simvastatin 20Mg [Zocor 20Mg] Med 05/27/21 17:00 Active 40 mg PO DINNER Simvastatin 20Mg [Zocor 20Mg] Med 05/26/21 22:00 Discontinued 40 mg PO HS Trazodone HCl 50 mg [Desyrel 50 mg] Med 05/26/21 22:00 Active 50 mg PO HS Venlafaxine HCl ER 75 mg [Effexor XR 75 MG] Med 05/27/21 17:00 Active 150 mg PO DINNER Venlafaxine HCl ER 75 mg [Effexor XR 75 MG] Med 05/26/21 22:00 Discon tinued 150 mg PO HS Oxygen Nasal Cannula 4 lpm RT 05/27/21 00:57 Active Pulse Oximetry CONTINUOUS RT 05/26/21 17:46 Active Patient Care Notes (Last 24 hours) 05/27/21 01:09 Nursing Note by Lyudmila Almanza Pt sleeping and O2 dropped to 81%. Placed on 4L NC. O2 now up to 95%. Called and notified RT and they placed humidity. Initialized on 05/27/21 01:09 - END OF NOTE Code(s): R41.82 - ALTERED MENTAL STATUS, UNSPECIFIED; T40.605A - ADVERSE EFFECT OF UNSPECIFIED NARCOTICS, INITIAL ENCOUNTER (2) Altered mental status Current Visit: Yes Status: Acute Qualifiers: Altered mental status type: somnolence Qualified Code(s): R40.0 - Somnolence Code(s): R41.82 - ALTERED MENTAL STATUS, UNSPECIFIED (3) Pancreatitis Current Visit: Yes Status: Acute Qualifiers: Pancreatitis type: drug induced Acute pancreatitis complication: unspecified Code(s): K85.90 - ACUTE PANCREATITIS WITHOUT NECROSIS OR INFECTION, UNSP (4) Neurogenic bladder Current Visit: Yes Status: Chronic Code(s): N31.9 - NEUROMUSCULAR DYSFUNCTION OF BLADDER, UNSPECIFIED (5) Paraplegia Current Visit: No Status: Chronic Code(s): G82.20 - PARAPLEGIA, UNSPECIFIED
[2021-05-27] MEDS: PATIENT OWN MEDICATION PO SCH ×2 (16:39)
[2021-05-27] MEDS ORDERED: ZOCOR 20MG PO SCH (17:00)
[2021-05-27] MEDS ORDERED: Effexor XR 75 MG PO SCH (17:00)
[2021-05-27] MEDS ORDERED: PATIENT OWN MEDICATION PO SCH (17:00)
[2021-05-27] MEDS ORDERED: CRANBERRY 500 MG PO SCH (17:00)
[2021-05-27] MEDS ORDERED: Acidophilus TABLET PO SCH (17:00)
[2021-05-27] MEDS ORDERED: NON-FORMULARY ITEM (L.Acidoph,Paracasei, B.Lactis [Probiotic] 1 EACH Capsule) PO SCH (17:00)
[2021-05-27] MEDS ORDERED: TYLENOL 325 MG ONE (20:59)
[2021-05-27] MEDS: DESYREL 50 MG PO SCH (21:06)
[2021-05-27] MEDS: TYLENOL 325 MG PO PRN (21:08)
[2021-05-28] MEDS: TYLENOL 325 MG PO PRN (04:58)
[2021-05-28 05:09] LABS: Hematocrit 41.9 % (42-50); Hemoglobin 13.1 gm/dl (12.5-18.0); Mean Cell Volume 92.7 fl (78-100); Mean Corpuscular Hgb Concent. 31.3 g/dl (32-36); Mean Platelet Volume 9.3 fl (7.5-11.0); Platelet Count 208 K/mm3 (150-450); Red Blood Count 4.52 M/mm3 (4.1-5.6); Red Cell Distribution Width 15.8 % (11.5-14.0); White Blood Count 5.9 K/mm3 (4.0-10.5)
[2021-05-28 05:34] LABS: AMYLASE 118 U/L (30-110); LIPASE 462 U/L (23-300)
[2021-05-28 05:38] LABS: ALBUMIN 3.2 g/dL (3.5-5.0); ALKALINE PHOSPHATASE 194 U/L (38-126); ANION GAP 9.4 MEQ/L (5-15); BLOOD UREA NITROGEN 13 mg/dL (9-20); CHLORIDE 113 mmol/L (98-107); Calcium 9.1 mg/dL (8.4-10.2); Carbon Dioxide 22 mmol/L (22-30); Creatinine 1 0.69 mg/dL (0.66-1.25); EST GLOMERULAR FILTRATION RATE > 60.0 ML/MIN; Glucose 112 mg/dL (74-106); Potassium 4.1 mmol/L (3.5-5.1); SGOT/AST 49 U/L (17-59); SGPT/ALT 53 U/L (0-50); SODIUM 141 mmol/L (137-145); Total Protein 5.8 g/dL (6.3-8.2)
[2021-05-28] MEDS ORDERED: OCEAN Nasal Spray NS PRN (05:47)
[2021-05-28 07:49] VITALS: BP 176/72; PULSE 71; O2SAT 95
[2021-05-28] MEDS ORDERED: Hydromorphone 1 mg/ml Injection IV ONE (08:13)
--- NOTE | 2021-05-28 08:25 | PCM.DS ---
Discharge Summary Date of Admission: 05/26/21 20:19 Admitting Physician: PRERNA LINK Primary Care Provider: PRERNA LINK Allergies Allergies No Known Drug Allergies Allergy (Verified 05/06/21 06:46) Hospital Summary - Hospital Course Hospital Course: Chief Complaint Diagnosis altered mental status for 8 hours Allergies Allergy/AdvReac Type Severity Reaction Status Date / Time No Known Drug Allergies Allergy Verified 05/06/21 06:46 Vital Signs (Last 24 hours) Temp Pulse Resp BP Pulse Ox 05/28/21 07:48 98.7 F 71 16 176/72 95 05/28/21 07:45 18 05/28/21 04:00 99.1 F 76 18 174/81 91 L 05/28/21 00:00 98.2 F 70 12 126/59 91 L 05/27/21 19:50 100.5 F 70 20 126/58 93 L 05/27/21 19:00 93 L 05/27/21 16:00 98.0 F 77 16 156/72 95 05/27/21 12:00 97.8 F 80 21 160/67 99 Home Medications Medication Instructions Recorded Confirmed Last Taken Type Buprenorphine HCl [Belbuca] 900 mcg BC Q12H 05/26/21 05/26/21 Unknown History Cephalexin Mh 250 mg [Keflex 250 250 mg PO DAILY 05/26/21 05/26/21 Unknown History mg] Methylnaltrexone [place] [Relistor] 450 mg PO QAM 05/26/21 05/26/21 Unknown History Current Medications Generic Name Dose Route Start Last Admin Trade Name Freq PRN Reason Stop Dose Admin Acetaminophen 650 mg 05/27/21 21:07 05/28/21 04:58 Acetaminophen 325 Mg Tablet PO 06/26/21 21:06 650 mg Q4H PRN PRN Administration PAIN AND/OR FEVER Amlodipine Besylate 5 mg 05/27/21 10:00 05/27/21 10:51 Amlodipine Besylate 5 Mg Tablet PO 06/26/21 09:59 5 mg DAILY SHAI Administration Aspirin 81 mg 05/27/21 10:00 05/27/21 10:51 Aspirin 81 Mg Tablet.Ec PO 06/26/21 09:59 81 mg QAM SHAI Administration Bisacodyl 10 mg 05/27/21 09:25 Bisacodyl 10 Mg Supp.Rect RC 06/26/21 09:24 DAILY PRN PRN CONSTIPATION Cephalexin HCl 250 mg 05/27/21 10:00 05/27/21 10:51 Cephalexin Mh 250 Mg Capsule PO 06/26/21 09:59 250 mg DAILY SHAI Administration Clopidogrel Bisulfate 75 mg 05/27/21 12:00 05/27/21 13:27 Clopidogrel Bisulfate 75 Mg Tablet PO 06/26/21 11:59 75 mg LUNCH SHAI Administration Docusate Sodium 200 mg 05/26/21 21:42 Docusate Sodium 100 Mg Capsule PO 06/25/21 21:41 TID PRN PRN CONSTIPATION Potassium Chloride/Sodium Chloride 1,000 mls @ 100 mls/hr 05/26/21 17:45 05/27/21 19:51 Sodium Chloride 0.9% W/ 20 Meq Kcl/Liter IV 06/25/21 17:44 100 mls/hr .Q10H SHAI Administration Insulin Human Lispro 0 unit 05/27/21 10:38 Insulin Lispro 1 Unit SQ 06/26/21 10:37 UD PRN HYPERGLYCEMIA Isosorbide Mononitrate 60 mg 05/27/21 12:00 05/27/21 13:27 Isosorbide Mononitrate 60 Mg Tab PO 06/26/21 11:59 60 mg LUNCH SHAI Administration Lactobacillus Acidophilus 1 tab 05/27/21 17:00 05/27/21 16:38 Lactobacillus Acidophilus 1 Tab Tablet PO 06/26/21 16:59 1 tab DINNER SHAI Administration Lamotrigine 200 mg 05/27/21 10:00 05/27/21 10:51 Lamotrigine 100 Mg Tab PO 06/26/21 09:59 200 mg DAILY SHAI Administration Loperamide HCl 0 mg 05/27/21 09:25 Loperamide Hcl 2 Mg Capsule PO 06/26/21 09:24 Q4H PRN PRN DIARRHEA Losartan Potassium 50 mg 05/26/21 22:00 05/27/21 21:05 Losartan Potassium 50 Mg Tablet PO 06/25/21 21:59 50 mg BID SHAI Administration Metoprolol Succinate 100 mg 05/27/21 10:00 05/27/21 10:50 Metoprolol Succinate 100 Mg Tablet.Sa PO 06/26/21 09:59 100 mg DAILY SHAI Administration Miscellaneous Information 1 each 05/27/21 10:00 Medication Intervention 1 Each Each PO 06/26/21 09:59 .RN TO CHECK ON SHAI Miscellaneous Information 1 each 05/27/21 10:00 Medication Intervention 1 Each Each MC 06/26/21 09:59 .RN TO CHECK ON SHAI Multivitamins Therapeutic 1 tab 05/27/21 10:00 05/27/21 10:51 Multivitamins,Therapeutic 1 Tab Tab PO 06/26/21 09:59 1 tab QAM SHAI Administration Nitroglycerin 0.4 mg 05/27/21 09:30 Nitroglycerin 0.4 Mg Tablet Bottle SL 06/26/21 09:29 UD PRN Ondansetron HCl 4 mg 05/26/21 17:41 Ondansetron Hcl 4 Mg/2 Ml Vial IV 06/25/21 17:40 Q6H PRN PRN NAUSEA/VOMITING Oxcarbazepine 300 mg 05/27/21 10:00 05/27/21 10:51 Oxcarbazepine 300 Mg Tab PO 06/26/21 09:59 300 mg DAILY SHAI Administration Pantoprazole Sodium 40 mg 05/27/21 10:00 05/27/21 10:50 Pantoprazole 40 Mg Vial IV 06/26/21 09:59 40 mg Q24H10 SHAI Administration Cranberry 15,000mg 1 each 05/27/21 17:00 05/27/21 16:39 Tablet PO 06/26/21 16:59 1 each DINNER SHAI Administration Relistor 150mg 3 each 05/27/21 16:00 05/27/21 16:39 Tablet PO 06/26/21 15:59 3 each QAM SHAI Administration Movantik 25mg Tablet 1 each 05/27/21 16:00 05/27/21 16:39 PO 06/26/21 15:59 1 each QAM SHAI Administration Polyethylene Glycol 17 gm 05/27/21 10:00 05/27/21 10:50 Polyethylene Glycol 3350 17 Gm Packet PO 06/26/21 09:59 17 gm QAM SHAI Administration Ranolazine 500 mg 05/26/21 22:00 05/27/21 21:06 Ranolazine 500 Mg Tab.Sr.12h PO 06/25/21 21:59 500 mg Q12HT SHAI Administration Simethicone 120 mg 05/26/21 22:00 05/27/21 21:06 Simethicone 80 Mg Tab.Chew PO 06/25/21 21:59 120 mg BID SHAI Administration Simvastatin 40 mg 05/27/21 17:00 05/27/21 16:38 Simvastatin 20 Mg Tablet PO 06/25/21 21:59 40 mg DINNER SHAI Administration Sodium Chloride 1 ml 05/28/21 05:47 05/28/21 05:49 Sodium Chloride Nasal [place] 45 Ml Bottle NS 06/27/21 05:46 1 ml Q2H PRN PRN Administration Nasal congestion Trazodone HCl 50 mg 05/26/21 22:00 05/27/21 21:06 Trazodone Hcl 50 Mg Tablet PO 06/25/21 21:59 50 mg HS SHAI Administration Venlafaxine HCl 150 mg 05/27/21 17:00 05/27/21 16:38 Venlafaxine Hcl 75 Mg Extended Release Capsule PO 06/25/21 21:59 150 mg DINNER SHAI Administration Discontinued Medications Generic Name Dose Route Start Last Admin Trade Name Freq PRN Reason Stop Dose Admin Acetaminophen Confirm 05/27/21 20:59 Acetaminophen 325 Mg Tablet Administered 05/27/21 21:00 Dose 650 mg .ROUTE .STK-MED ONE Amlodipine Besylate 10 mg 05/26/21 15:44 05/26/21 15:56 Amlodipine Besylate 5 Mg Tablet PO 05/26/21 15:45 Not Given STAT ONE Amlodipine Besylate Confirm 05/26/21 15:51 Amlodipine Besylate 5 Mg Tablet Administered 05/26/21 15:52 Dose 10 mg .ROUTE .STK-MED ONE Clonidine 0.1 mg 05/26/21 15:45 05/26/21 15:56 Clonidine Hcl 0.1 Mg Tablet PO 05/26/21 15:46 Not Given STAT ONE Clonidine Confirm 05/26/21 15:51 Clonidine Hcl 0.1 Mg Tablet Administered 05/26/21 15:52 Dose 0.1 mg .ROUTE .STK-MED ONE Enalaprilat 5 mg 05/26/21 15:53 05/26/21 15:56 Enalaprilat 2.5 Mg Injection IV 05/26/21 15:54 Not Given STAT ONE Enalaprilat Confirm 05/26/21 15:53 Enalaprilat 2.5 Mg Injection Administered 05/26/21 15:54 Dose 5 mg IV .STK-MED ONE Enalaprilat 2.5 mg 05/26/21 15:57 05/26/21 15:58 Enalaprilat 2.5 Mg Injection IV 05/26/21 15:58 2.5 mg STAT ONE Administration Gabapentin 1,800 mg 05/26/21 22:00 05/26/21 22:18 Gabapentin 300 Mg Capsule PO 06/25/21 21:59 1,800 mg HS SHAI Administration Hydromorphone HCl 1 mg 05/26/21 15:41 05/26/21 15:55 Hydromorphone 1 Mg/1ml Inj 1 Mg/Ml Syringe IV 05/26/21 15:42 1 mg STAT ONE Administration Hydromorphone HCl Confirm 05/26/21 15:50 Hydromorphone 1 Mg/1ml Inj 1 Mg/Ml Syringe Administered 05/26/21 15:51 Dose 1 mg .ROUTE .STK-MED ONE Hydromorphone HCl 1 mg 05/26/21 17:41 05/26/21 19:57 Hydromorphone 1 Mg/1ml Inj 1 Mg/Ml Syringe IV 05/31/21 17:40 1 mg Q4H PRN PRN Administration PAIN Hydromorphone HCl Confirm 05/26/21 19:56 Hydromorphone 1 Mg/1ml Inj 1 Mg/Ml Syringe Administered 05/26/21 19:57 Dose 1 mg .ROUTE .STK-MED ONE Hydromorphone HCl 2 mg 05/26/21 21:03 05/27/21 20:25 Hydromorphone 1 Mg/1ml Inj 1 Mg/Ml Syringe IV 05/27/21 23:30 2 mg Q2H PRN PRN Administration SEVERE PAIN Hydromorphone HCl 2 mg 05/28/21 08:13 05/28/21 08:20 Hydromorphone 1 Mg/1ml Inj 1 Mg/Ml Syringe IV 05/28/21 08:14 2 mg STAT ONE Administration Sodium Chloride 1,000 mls @ 999 mls/hr 05/26/21 15:41 05/26/21 16:57 Sodium Chloride 0.9% 1000 Ml IV 05/26/21 16:41 Infused .Q1H1M STA Infusion Sodium Chloride Confirm 05/26/21 15:51 Sodium Chloride 0.9% 1000 Ml Administered 05/26/21 15:52 Dose 1,000 mls @ .ROUTE .STK-MED ONE Miscellaneous Information 1 each 05/27/21 10:00 Medication Intervention 1 Each Each PO 06/26/21 09:59 .RN TO CHECK ON SHAI Miscellaneous Information 1 each 05/27/21 10:00 Medication Intervention 1 Each Each PO 06/26/21 09:59 .RN TO CHECK ON SHAI Miscellaneous Information 1 each 05/27/21 10:00 Medication Intervention 1 Each Each PO 06/26/21 09:59 .RN TO CHECK ON SHAI Simethicone 120 mg 05/26/21 22:00 05/26/21 22:52 Simethicone 40 Mg/0.6 Ml Drops PO 06/25/21 21:59 Not Given BID SHAI Simvastatin 40 mg 05/26/21 22:00 05/26/21 22:18 Simvastatin 20 Mg Tablet PO 06/25/21 21:59 40 mg HS SHAI Administration Venlafaxine HCl 150 mg 05/26/21 22:00 05/26/21 22:17 Venlafaxine Hcl 75 Mg Extended Release Capsule PO 06/25/21 21:59 150 mg HS SHAI Administration Intake & Output (Last 24 hours) 05/25/21 05/26/21 05/27/21 05/28/21 11:59 11:59 11:59 11:59 Intake Total 924 1766 Output Total 1500 1050 Balance -576 716 Weight 90.4 kg Microbiology Results (Last 24 hours) 05/26/21 17:12 Clean Catch Midstream Urine Culture - Final NO GROWTH Laboratory Results (Last 24 hours) 05/28/21 05/28/21 05/28/21 07:42 04:30 04:30 WBC RBC Hgb Hct MCV MCH MCHC RDW Plt Count MPV Sodium 141 Potassium 4.1 Chloride 113 H Carbon Dioxide 22 Anion Gap 9.4 BUN 13 Creatinine 0.69 Estimated GFR > 60.0 Glucose 112 H POC Glucometer 143 H Hemoglobin A1c Calcium 9.1 Total Bilirubin 0.50 AST 49 ALT 53 H Alkaline Phosphatase 194 H Serum Total Protein 5.8 L Albumin 3.2 L Amylase 118 H Lipase 462 H 05/28/21 05/27/21 05/27/21 04:30 20:23 16:12 WBC 5.9 RBC 4.52 Hgb 13.1 Hct 41.9 L MCV 92.7 MCH 29.0 MCHC 31.3 L RDW 15.8 H Plt Count 208 MPV 9.3 Sodium Potassium Chloride Carbon Dioxide Anion Gap BUN Creatinine Estimated GFR Glucose POC Glucometer 174 H 125 H Hemoglobin A1c Calcium Total Bilirubin AST ALT Alkaline Phosphatase Serum Total Protein Albumin Amylase Lipase 05/27/21 05/27/21 12:56 10:00 WBC RBC Hgb Hct MCV MCH MCHC RDW Plt Count MPV Sodium Potassium Chloride Carbon Dioxide Anion Gap BUN Creatinine Estimated GFR Glucose POC Glucometer 160 H Hemoglobin A1c 6.30 H Calcium Total Bilirubin AST ALT Alkaline Phosphatase Serum Total Protein Albumin Amylase Lipase Orders (Last 24 hours) Category Date Time Status House Regular Diet Diet 05/27/21 Lunch Active AMYLASE AM.LAB Lab 05/28/21 04:30 Completed CBC AM.LAB Lab 05/28/21 04:30 Completed CMP AM.LAB Lab 05/28/21 04:30 Completed HEMOGLOBIN A1C Urgent Lab 05/27/21 10:00 Completed LIPASE AM.LAB Lab 05/28/21 04:30 Completed POCT GLUCOSE Stat Lab 05/27/21 12:56 Completed POCT GLUCOSE Stat Lab 05/27/21 16:12 Completed POCT GLUCOSE Stat Lab 05/27/21 20:23 Completed POCT GLUCOSE Stat Lab 05/28/21 07:42 Completed Acetaminophen 325 mg [Tylenol 325 mg] Med 05/27/21 20:59 Discontinued 650 mg .ROUTE .STK-MED ONE Acetaminophen 325 mg [Tylenol 325 mg] Med 05/27/21 21:07 Active 650 mg PO Q4H PRN PRN Amlodipine Besylate 5 mg [Norvasc 5 mg] Med 05/27/21 10:00 Active 5 mg PO DAILY Aspirin EC 81 mg [Ecotrin 81 mg] Med 05/27/21 10:00 Active 81 mg PO QAM Bisacodyl 10 mg [Dulcolax 10 MG SUPP] Med 05/27/21 09:25 Active 10 mg RC DAILY PRN PRN Cephalexin Mh 250 mg [Keflex 250 mg] Med 05/27/21 10:00 Active 250 mg PO DAILY Clopidogrel Bisulfate 75 mg [PLAVIX 75 MG Tablet] Med 05/27/21 12:00 Active 75 mg PO LUNCH Hydromorphone 1 mg/1Ml Inj [Hydromorphone 1 mg/ml Med 05/28/21 08:13 Discontinued Injection] 2 mg IV STAT ONE Insulin Lispro [Humalog] Med 05/27/21 10:38 Active See Dose Instructions SQ UD PRN Isosorbide Mononitrate 60 mg [Imdur 60MG] Med 05/27/21 12:00 Active 60 mg PO LUNCH Lactobacillus Acidophilus [Acidophilus TABLET] Med 05/27/21 17:00 Active 1 tab PO DINNER Lamotrigine 100 mg [lamICTAL 100MG TABLET] Med 05/27/21 10:00 Active 200 mg PO DAILY Loperamide HCl 2 mg [Imodium 2 mg] Med 05/27/21 09:25 Active 0 mg PO Q4H PRN PRN Medication Intervention Med 05/27/21 10:00 Active 1 each MC .RN TO CHECK ON Medication Intervention Med 05/27/21 10:00 Active 1 each PO .RN TO CHECK ON Medication Intervention Med 05/27/21 10:00 Discontinued 1 each PO .RN TO CHECK ON Medication Intervention Med 05/27/21 10:00 Discontinued 1 each PO .RN TO CHECK ON Medication Intervention Med 05/27/21 10:00 Discontinued 1 each PO .RN TO CHECK ON Metoprolol Succinate 100 mg [Toprol Xl 100 MG] Med 05/27/21 10:00 Active 100 mg PO DAILY Multivitamins,Therapeutic Tab* [Theragran Multivitamin* Med 05/27/21 10:00 Active ] 1 tab PO QAM Nitroglycerin 0.4 mg Tablet [Nitrostat 0.4 MG Tablet Med 05/27/21 09:30 Active ] 0.4 mg SL UD PRN Oxcarbazepine 300 mg [Trileptal 300 MG Tablet] Med 05/27/21 10:00 Active 300 mg PO DAILY Pantoprazole 40 mg [Protonix 40 mg IV] Med 05/27/21 10:00 Active 40 mg IV Q24H10 Patient Own Med [Patient Own Medication] Med 05/27/21 17:00 Active 1 each PO DINNER Patient Own Med [Patient Own Medication] Med 05/27/21 16:00 Active 1 each PO QAM Patient Own Med [Patient Own Medication] Med 05/27/21 16:00 Active 3 each PO QAM Polyethylene Glycol 3350 17 gm [Miralax Powder 17GM Med 05/27/21 10:00 Active PACKET] 17 gm PO QAM Simvastatin 20Mg [Zocor 20Mg] Med 05/27/21 17:00 Active 40 mg PO DINNER Sodium Chloride Nasal [place] [OCEAN Nasal [place]] Med 05/28/21 05:47 Active 1 ml NS Q2H PRN PRN Venlafaxine HCl ER 75 mg [Effexor XR 75 MG] Med 05/27/21 17:00 Active 150 mg PO DINNER Patient Care Notes (Last 24 hours) 05/28/21 06:10 Nursing Note by Sandip Oliver Pt c/o severe generalized pain, unable to give narcotic med d/t expected visit to Dr Solorzano's today (pain mgmt). Tylenol given, see emar. Pt repositioned for comfort. Pt had BM shortly after, then was much more comfortable. Will continue to monitor. Initialized on 05/28/21 06:10 - END OF NOTE I talked to Dr. Viera yesterday and he advised that when patient is discharged directly to his office and they will teach patient and his about the application of the pain medication the pain patch . I talked to patient and his and they understood and today when they will be discharged and going straight to Dr. Yao's office. - Vitals & Intake/Output Vital Signs: Vital Signs Temperature 98.7 F 05/28/21 07:48 Pulse Rate 71 05/28/21 07:48 Respiratory Rate 16 05/28/21 07:48 Blood Pressure 176/72 05/28/21 07:48 O2 Sat by Pulse Oximetry 95 05/28/21 07:48 Intake & Output: Intake & Output 05/25/21 05/26/21 05/27/21 05/28/21 11:59 11:59 11:59 11:59 Intake Total 064 1766 Output Total 7959 1050 Balance -576 716 Weight 90.4 kg - Lab Result Diagrams: 05/28/21 04:30 05/28/21 04:30 Lab Results-Last 24 Hrs: Lab Results-Last 24 Hours 05/27/21 05/27/21 05/27/21 Range/Units 10:00 12:56 16:12 WBC (4.0-10.5) K/mm3 RBC (4.1-5.6) M/mm3 Hgb (12.5-18.0) gm/dl Hct (42-50) % MCV (78-100) fl MCH (26-32) pg MCHC (32-36) g/dl RDW (11.5-14.0) % Plt Count (150-450) K/mm3 MPV (7.5-11.0) fl Sodium (137-145) mmol/L Potassium (3.5-5.1) mmol/L Chloride (98-107) mmol/L Carbon Dioxide (22-30) mmol/L Anion Gap (5-15) MEQ/L BUN (9-20) mg/dL Creatinine (0.66-1.25) mg/dL Estimated GFR ML/MIN Glucose (74-106) mg/dL POC Glucometer 160 H 125 H (74 to 106) mg/dL Hemoglobin A1c 6.30 H (4.5-6.0) % Calcium (8.4-10.2) mg/dL Total Bilirubin (0.2-1.3) mg/dL AST (17-59) U/L ALT (0-50) U/L Alkaline Phosphatase (38-126) U/L Serum Total Protein (6.3-8.2) g/dL Albumin (3.5-5.0) g/dL Amylase (30-110) U/L Lipase (23-300) U/L 05/27/21 05/28/21 05/28/21 Range/Units 20:23 04:30 04:30 WBC 5.9 (4.0-10.5) K/mm3 RBC 4.52 (4.1-5.6) M/mm3 Hgb 13.1 (12.5-18.0) gm/dl Hct 41.9 L (42-50) % MCV 92.7 (78-100) fl MCH 29.0 (26-32) pg MCHC 31.3 L (32-36) g/dl RDW 15.8 H (11.5-14.0) % Plt Count 208 (150-450) K/mm3 MPV 9.3 (7.5-11.0) fl Sodium 141 (137-145) mmol/L Potassium 4.1 (3.5-5.1) mmol/L Chloride 113 H (98-107) mmol/L Carbon Dioxide 22 (22-30) mmol/L Anion Gap 9.4 (5-15) MEQ/L BUN 13 (9-20) mg/dL Creatinine 0.69 (0.66-1.25) mg/dL Estimated GFR > 60.0 ML/MIN Glucose 112 H (74-106) mg/dL POC Glucometer 174 H (74 to 106) mg/dL Hemoglobin A1c (4.5-6.0) % Calcium 9.1 (8.4-10.2) mg/dL Total Bilirubin 0.50 (0.2-1.3) mg/dL AST 49 (17-59) U/L ALT 53 H (0-50) U/L Alkaline Phosphatase 194 H (38-126) U/L Serum Total Protein 5.8 L (6.3-8.2) g/dL Albumin 3.2 L (3.5-5.0) g/dL Amylase (30-110) U/L Lipase (23-300) U/L 05/28/21 05/28/21 Range/Units 04:30 07:42 WBC (4.0-10.5) K/mm3 RBC (4.1-5.6) M/mm3 Hgb (12.5-18.0) gm/dl Hct (42-50) % MCV (78-100) fl MCH (26-32) pg MCHC (32-36) g/dl RDW (11.5-14.0) % Plt Count (150-450) K/mm3 MPV (7.5-11.0) fl Sodium (137-145) mmol/L Potassium (3.5-5.1) mmol/L Chloride (98-107) mmol/L Carbon Dioxide (22-30) mmol/L Anion Gap (5-15) MEQ/L BUN (9-20) mg/dL Creatinine (0.66-1.25) mg/dL Estimated GFR ML/MIN Glucose (74-106) mg/dL POC Glucometer 143 H (74 to 106) mg/dL Hemoglobin A1c (4.5-6.0) % Calcium (8.4-10.2) mg/dL Total Bilirubin (0.2-1.3) mg/dL AST (17-59) U/L ALT (0-50) U/L Alkaline Phosphatase (38-126) U/L Serum Total Protein (6.3-8.2) g/dL Albumin (3.5-5.0) g/dL Amylase 118 H (30-110) U/L Lipase 462 H (23-300) U/L Micro Results-Entire Visit: Microbiology 05/26/21 17:12 Urine Culture - Final Clean Catch Midstream NO GROWTH Accuchecks Date 05/28/21 Time 07:47 - Radiology Exams Ordered Rad Exams-Entire Visit: Radiology Procedures Category Date Time Status ABDOMEN AND PELVIS W/0 CONTRAS [CT] Stat Exams 05/26/21 15:41 Completed CHEST 1 VIEW (PORTABLE) Stat Exams 05/26/21 16:04 Completed HEAD WITHOUT CONTRAST [CT] Stat Exams 05/26/21 15:43 Completed - Procedures and Test Procedures and Tests throughout Hospitalization: Therapy Orders & Screens 05/27/21 00:57 Oxygen Nasal Cannula 4 lpm Comment: Diagnosis: altered mental status, neurogenic bladder, pancreatitis Discharge Exam General Appearance: no apparent distress, alert Neurologic Exam: alert, oriented x 3, cooperative, normal mood/affect, nml cerebellar function, sensation nml, No motor deficits Eye Exam: PERRL, EOMI, eyes nml inspection Ears, Nose, Throat Exam: normal ENT inspection, pharynx normal, moist mucous membranes Neck Exam: normal inspection, non-tender, supple, full range of motion Respiratory Exam: normal breath sounds, lungs clear, No respiratory distress Cardiovascular Exam: regular rate/rhythm, normal heart sounds Gastrointestinal/Abdomen Exam: soft, No tenderness, No mass Male Genitalia Exam: deferred Rectal Exam: deferred Back Exam: normal inspection, normal range of motion, No CVA tenderness, No vert ebral tenderness Extremity Exam: normal inspection, normal range of motion Skin Exam: normal color, warm, dry Final Diagnosis/Problem List - Final Discharge Diagnosis/Problem (1) Narcotic induced mental alteration Current Visit: Yes Status: Acute Assessment & Plan: Chief Complaint Diagnosis altered mental status for 8 hours Allergies Allergy/AdvReac Type Severity Reaction Status Date / Time No Known Drug Allergies Allergy Verified 05/06/21 06:46 Vital Signs (Last 24 hours) Temp Pulse Resp BP Pulse Ox 05/28/21 07:48 98.7 F 71 16 176/72 95 05/28/21 07:45 18 05/28/21 04:00 99.1 F 76 18 174/81 91 L 05/28/21 00:00 98.2 F 70 12 126/59 91 L 05/27/21 19:50 100.5 F 70 20 126/58 93 L 05/27/21 19:00 93 L 05/27/21 16:00 98.0 F 77 16 156/72 95 05/27/21 12:00 97.8 F 80 21 160/67 99 Home Medications Medication Instructions Recorded Confirmed Last Taken Type Buprenorphine HCl [Belbuca] 900 mcg BC Q12H 05/26/21 05/26/21 Unknown History Cephalexin Mh 250 mg [Keflex 250 250 mg PO DAILY 05/26/21 05/26/21 Unknown History mg] Methylnaltrexone [place] [Relistor] 450 mg PO QAM 05/26/21 05/26/21 Unknown History Current Medications Generic Name Dose Route Start Last Admin Trade Name Freq PRN Reason Stop Dose Admin Acetaminophen 650 mg 05/27/21 21:07 05/28/21 04:58 Acetaminophen 325 Mg Tablet PO 06/26/21 21:06 650 mg Q4H PRN PRN Administration PAIN AND/OR FEVER Amlodipine Besylate 5 mg 05/27/21 10:00 05/27/21 10:51 Amlodipine Besylate 5 Mg Tablet PO 06/26/21 09:59 5 mg DAILY SHAI Administration Aspirin 81 mg 05/27/21 10:00 05/27/21 10:51 Aspirin 81 Mg Tablet.Ec PO 06/26/21 09:59 81 mg QAM SHAI Administration Bisacodyl 10 mg 05/27/21 09:25 Bisacodyl 10 Mg Supp.Rect RC 06/26/21 09:24 DAILY PRN PRN CONSTIPATION Cephalexin HCl 250 mg 05/27/21 10:00 05/27/21 10:51 Cephalexin Mh 250 Mg Capsule PO 06/26/21 09:59 250 mg DAILY SHAI Administration Clopidogrel Bisulfate 75 mg 05/27/21 12:00 05/27/21 13:27 Clopidogrel Bisulfate 75 Mg Tablet PO 06/26/21 11:59 75 mg LUNCH SHAI Administration Docusate Sodium 200 mg 05/26/21 21:42 Docusate Sodium 100 Mg Capsule PO 06/25/21 21:41 TID PRN PRN CONSTIPATION Potassium Chloride/Sodium Chloride 1,000 mls @ 100 mls/hr 05/26/21 17:45 05/27/21 19:51 Sodium Chloride 0.9% W/ 20 Meq Kcl/Liter IV 06/25/21 17:44 100 mls/hr .Q10H SHAI Administration Insulin Human Lispro 0 unit 05/27/21 10:38 Insulin Lispro 1 Unit SQ 06/26/21 10:37 UD PRN HYPERGLYCEMIA Isosorbide Mononitrate 60 mg 05/27/21 12:00 05/27/21 13:27 Isosorbide Mononitrate 60 Mg Tab PO 06/26/21 11:59 60 mg LUNCH SHAI Administration Lactobacillus Acidophilus 1 tab 05/27/21 17:00 05/27/21 16:38 Lactobacillus Acidophilus 1 Tab Tablet PO 06/26/21 16:59 1 tab DINNER SHAI Administration Lamotrigine 200 mg 05/27/21 10:00 05/27/21 10:51 Lamotrigine 100 Mg Tab PO 06/26/21 09:59 200 mg DAILY SHAI Administration Loperamide HCl 0 mg 05/27/21 09:25 Loperamide Hcl 2 Mg Capsule PO 06/26/21 09:24 Q4H PRN PRN DIARRHEA Losartan Potassium 50 mg 05/26/21 22:00 05/27/21 21:05 Losartan Potassium 50 Mg Tablet PO 06/25/21 21:59 50 mg BID SHAI Administration Metoprolol Succinate 100 mg 05/27/21 10:00 05/27/21 10:50 Metoprolol Succinate 100 Mg Tablet.Sa PO 06/26/21 09:59 100 mg DAILY SHAI Administration Miscellaneous Information 1 each 05/27/21 10:00 Medication Intervention 1 Each Each PO 06/26/21 09:59 .RN TO CHECK ON SHAI Miscellaneous Information 1 each 05/27/21 10:00 Medication Intervention 1 Each Each 06/26/21 09:59 .RN TO CHECK ON SHAI Multivitamins Therapeutic 1 tab 05/27/21 10:00 05/27/21 10:51 Multivitamins,Therapeutic 1 Tab Tab PO 06/26/21 09:59 1 tab QAM SHAI Administration Nitroglycerin 0.4 mg 05/27/21 09:30 Nitroglycerin 0.4 Mg Tablet Bottle SL 06/26/21 09:29 UD PRN Ondansetron HCl 4 mg 05/26/21 17:41 Ondansetron Hcl 4 Mg/2 Ml Vial IV 06/25/21 17:40 Q6H PRN PRN NAUSEA/VOMITING Oxcarbazepine 300 mg 05/27/21 10:00 05/27/21 10:51 Oxcarbazepine 300 Mg Tab PO 06/26/21 09:59 300 mg DAILY SHAI Administration Pantoprazole Sodium 40 mg 05/27/21 10:00 05/27/21 10:50 Pantoprazole 40 Mg Vial IV 06/26/21 09:59 40 mg Q24H10 SHAI Administration Cranberry 15,000mg 1 each 05/27/21 17:00 05/27/21 16:39 Tablet PO 06/26/21 16:59 1 each DINNER SHAI Administration Relistor 150mg 3 each 05/27/21 16:00 05/27/21 16:39 Tablet PO 06/26/21 15:59 3 each QAM SHAI Administration Movantik 25mg Tablet 1 each 05/27/21 16:00 05/27/21 16:39 PO 06/26/21 15:59 1 each QAM SHAI Administration Polyethylene Glycol 17 gm 05/27/21 10:00 05/27/21 10:50 Polyethylene Glycol 3350 17 Gm Packet PO 06/26/21 09:59 17 gm QAM SHAI Administration Ranolazine 500 mg 05/26/21 22:00 05/27/21 21:06 Ranolazine 500 Mg Tab.Sr.12h PO 06/25/21 21:59 500 mg Q12HT SHAI Administration Simethicone 120 mg 05/26/21 22:00 05/27/21 21:06 Simethicone 80 Mg Tab.Chew PO 06/25/21 21:59 120 mg BID SHAI Administration Simvastatin 40 mg 05/27/21 17:00 05/27/21 16:38 Simvastatin 20 Mg Tablet PO 06/25/21 21:59 40 mg DINNER SHAI Administration Sodium Chloride 1 ml 05/28/21 05:47 05/28/21 05:49 Sodium Chloride Nasal [place] 45 Ml Bottle NS 06/27/21 05:46 1 ml Q2H PRN PRN Administration Nasal congestion Trazodone HCl 50 mg 05/26/21 22:00 05/27/21 21:06 Trazodone Hcl 50 Mg Tablet PO 06/25/21 21:59 50 mg HS SHAI Administration Venlafaxine HCl 150 mg 05/27/21 17:00 05/27/21 16:38 Venlafaxine Hcl 75 Mg Extended Release Capsule PO 06/25/21 21:59 150 mg DINNER SHAI Administration Discontinued Medications Generic Name Dose Route Start Last Admin Trade Name Freq PRN Reason Stop Dose Admin Acetaminophen Confirm 05/27/21 20:59 Acetaminophen 325 Mg Tablet Administered 05/27/21 21:00 Dose 650 mg .ROUTE .STK-MED ONE Amlodipine Besylate 10 mg 05/26/21 15:44 05/26/21 15:56 Amlodipine Besylate 5 Mg Tablet PO 05/26/21 15:45 Not Given STAT ONE Amlodipine Besylate Confirm 05/26/21 15:51 Amlodipine Besylate 5 Mg Tablet Administered 05/26/21 15:52 Dose 10 mg .ROUTE .STK-MED ONE Clonidine 0.1 mg 05/26/21 15:45 05/26/21 15:56 Clonidine Hcl 0.1 Mg Tablet PO 05/26/21 15:46 Not Given STAT ONE Clonidine Confirm 05/26/21 15:51 Clonidine Hcl 0.1 Mg Tablet Administered 05/26/21 15:52 Dose 0.1 mg .ROUTE .STK-MED ONE Enalaprilat 5 mg 05/26/21 15:53 05/26/21 15:56 Enalaprilat 2.5 Mg Injection IV 05/26/21 15:54 Not Given STAT ONE Enalaprilat Confirm 05/26/21 15:53 Enalaprilat 2.5 Mg Injection Administered 05/26/21 15:54 Dose 5 mg IV .STK-MED ONE Enalaprilat 2.5 mg 05/26/21 15:57 05/26/21 15:58 Enalaprilat 2.5 Mg Injection IV 05/26/21 15:58 2.5 mg STAT ONE Administration Gabapentin 1,800 mg 05/26/21 22:00 05/26/21 22:18 Gabapentin 300 Mg Capsule PO 06/25/21 21:59 1,800 mg HS SHAI Administration Hydromorphone HCl 1 mg 05/26/21 15:41 05/26/21 15:55 Hydromorphone 1 Mg/1ml Inj 1 Mg/Ml Syringe IV 05/26/21 15:42 1 mg STAT ONE Administration Hydromorphone HCl Confirm 05/26/21 15:50 Hydromorphone 1 Mg/1ml Inj 1 Mg/Ml Syringe Administered 05/26/21 15:51 Dose 1 mg .ROUTE .STK-MED ONE Hydromorphone HCl 1 mg 05/26/21 17:41 05/26/21 19:57 Hydromorphone 1 Mg/1ml Inj 1 Mg/Ml Syringe IV 05/31/21 17:40 1 mg Q4H PRN PRN Administration PAIN Hydromorphone HCl Confirm 05/26/21 19:56 Hydromorphone 1 Mg/1ml Inj 1 Mg/Ml Syringe Administered 05/26/21 19:57 Dose 1 mg .ROUTE .STK-MED ONE Hydromorphone HCl 2 mg 05/26/21 21:03 05/27/21 20:25 Hydromorphone 1 Mg/1ml Inj 1 Mg/Ml Syringe IV 05/27/21 23:30 2 mg Q2H PRN PRN Administration SEVERE PAIN Hydromorphone HCl 2 mg 05/28/21 08:13 05/28/21 08:20 Hydromorphone 1 Mg/1ml Inj 1 Mg/Ml Syringe IV 05/28/21 08:14 2 mg STAT ONE Administration Sodium Chloride 1,000 mls @ 999 mls/hr 05/26/21 15:41 05/26/21 16:57 Sodium Chloride 0.9% 1000 Ml IV 05/26/21 16:41 Infused .Q1H1M STA Infusion Sodium Chloride Confirm 05/26/21 15:51 Sodium Chloride 0.9% 1000 Ml Administered 05/26/21 15:52 Dose 1,000 mls @ ud .ROUTE .STK-MED ONE Miscellaneous Information 1 each 05/27/21 10:00 Medication Intervention 1 Each Each PO 06/26/21 09:59 .RN TO CHECK ON SHAI Miscellaneous Information 1 each 05/27/21 10:00 Medication Intervention 1 Each Each PO 06/26/21 09:59 .RN TO CHECK ON SHAI Miscellaneous Information 1 each 05/27/21 10:00 Medication Intervention 1 Each Each PO 06/26/21 09:59 .RN TO CHECK ON SHAI Simethicone 120 mg 05/26/21 22:00 05/26/21 22:52 Simethicone 40 Mg/0.6 Ml Drops PO 06/25/21 21:59 Not Given BID SHAI Simvastatin 40 mg 05/26/21 22:00 05/26/21 22:18 Simvastatin 20 Mg Tablet PO 06/25/21 21:59 40 mg HS SHAI Administration Venlafaxine HCl 150 mg 05/26/21 22:00 05/26/21 22:17 Venlafaxine Hcl 75 Mg Extended Release Capsule PO 06/25/21 21:59 150 mg HS SHAI Administration Intake & Output (Last 24 hours) 05/25/21 05/26/21 05/27/21 05/28/21 11:59 11:59 11:59 11:59 Intake Total 924 1766 Output Total 1500 1050 Balance -576 716 Weight 90.4 kg Microbiology Results (Last 24 hours) 05/26/21 17:12 Clean Catch Midstream Urine Culture - Final NO GROWTH Laboratory Results (Last 24 hours) 05/28/21 05/28/21 05/28/21 07:42 04:30 04:30 WBC RBC Hgb Hct MCV MCH MCHC RDW Plt Count MPV Sodium 141 Potassium 4.1 Chloride 113 H Carbon Dioxide 22 Anion Gap 9.4 BUN 13 Creatinine 0.69 Estimated GFR > 60.0 Glucose 112 H POC Glucometer 143 H Hemoglobin A1c Calcium 9.1 Total Bilirubin 0.50 AST 49 ALT 53 H Alkaline Phosphatase 194 H Serum Total Protein 5.8 L Albumin 3.2 L Amylase 118 H Lipase 462 H 05/28/21 05/27/21 05/27/21 04:30 20:23 16:12 WBC 5.9 RBC 4.52 Hgb 13.1 Hct 41.9 L MCV 92.7 MCH 29.0 MCHC 31.3 L RDW 15.8 H Plt Count 208 MPV 9.3 Sodium Potassium Chloride Carbon Dioxide Anion Gap BUN Creatinine Estimated GFR Glucose POC Glucometer 174 H 125 H Hemoglobin A1c Calcium Total Bilirubin AST ALT Alkaline Phosphatase Serum Total Protein Albumin Amylase Lipase 05/27/21 05/27/21 12:56 10:00 WBC RBC Hgb Hct MCV MCH MCHC RDW Plt Count MPV Sodium Potassium Chloride Carbon Dioxide Anion Gap BUN Creatinine Estimated GFR Glucose POC Glucometer 160 H Hemoglobin A1c 6.30 H Calcium Total Bilirubin AST ALT Alkaline Phosphatase Serum Total Protein Albumin Amylase Lipase Orders (Last 24 hours) Category Date Time Status House Regular Diet Diet 05/27/21 Lunch Active AMYLASE AM.LAB Lab 05/28/21 04:30 Completed CBC AM.LAB Lab 05/28/21 04:30 Completed CMP AM.LAB Lab 05/28/21 04:30 Completed HEMOGLOBIN A1C Urgent Lab 05/27/21 10:00 Completed LIPASE AM.LAB Lab 05/28/21 04:30 Completed POCT GLUCOSE Stat Lab 05/27/21 12:56 Completed POCT GLUCOSE Stat Lab 05/27/21 16:12 Completed POCT GLUCOSE Stat Lab 05/27/21 20:23 Completed POCT GLUCOSE Stat Lab 05/28/21 07:42 Completed Acetaminophen 325 mg [Tylenol 325 mg] Med 05/27/21 20:59 Discontinued 650 mg .ROUTE .STK-MED ONE Acetaminophen 325 mg [Tylenol 325 mg] Med 05/27/21 21:07 Active 650 mg PO Q4H PRN PRN Amlodipine Besylate 5 mg [Norvasc 5 mg] Med 05/27/21 10:00 Active 5 mg PO DAILY Aspirin EC 81 mg [Ecotrin 81 mg] Med 05/27/21 10:00 Active 81 mg PO QAM Bisacodyl 10 mg [Dulcolax 10 MG SUPP] Med 05/27/21 09:25 Active 10 mg RC DAILY PRN PRN Cephalexin Mh 250 mg [Keflex 250 mg] Med 05/27/21 10:00 Active 250 mg PO DAILY Clopidogrel Bisulfate 75 mg [PLAVIX 75 MG Tablet] Med 05/27/21 12:00 Active 75 mg PO LUNCH Hydromorphone 1 mg/1Ml Inj [Hydromorphone 1 mg/ml Med 05/28/21 08:13 Discontinued Injection] 2 mg IV STAT ONE Insulin Lispro [Humalog] Med 05/27/21 10:38 Active See Dose Instructions SQ UD PRN Isosorbide Mononitrate 60 mg [Imdur 60MG] Med 05/27/21 12:00 Active 60 mg PO LUNCH Lactobacillus Acidophilus [Acidophilus TABLET] Med 05/27/21 17:00 Active 1 tab PO DINNER Lamotrigine 100 mg [lamICTAL 100MG TABLET] Med 05/27/21 10:00 Active 200 mg PO DAILY Loperamide HCl 2 mg [Imodium 2 mg] Med 05/27/21 09:25 Active 0 mg PO Q4H PRN PRN Medication Intervention Med 05/27/21 10:00 Active 1 each MC .RN TO CHECK ON Medication Intervention Med 05/27/21 10:00 Active 1 each PO .RN TO CHECK ON Medication Intervention Med 05/27/21 10:00 Discontinued 1 each PO .RN TO CHECK ON Medication Intervention Med 05/27/21 10:00 Discontinued 1 each PO .RN TO CHECK ON Medication Intervention Med 05/27/21 10:00 Discontinued 1 each PO .RN TO CHECK ON Metoprolol Succinate 100 mg [Toprol Xl 100 MG] Med 05/27/21 10:00 Active 100 mg PO DAILY Multivitamins,Therapeutic Tab* [Theragran Multivitamin* Med 05/27/21 10:00 Active ] 1 tab PO QAM Nitroglycerin 0.4 mg Tablet [Nitrostat 0.4 MG Tablet Med 05/27/21 09:30 Active ] 0.4 mg SL UD PRN Oxcarbazepine 300 mg [Trileptal 300 MG Tablet] Med 05/27/21 10:00 Active 300 mg PO DAILY Pantoprazole 40 mg [Protonix 40 mg IV] Med 05/27/21 10:00 Active 40 mg IV Q24H10 Patient Own Med [Patient Own Medication] Med 05/27/21 17:00 Active 1 each PO DINNER Patient Own Med [Patient Own Medication] Med 05/27/21 16:00 Active 1 each PO QAM Patient Own Med [Patient Own Medication] Med 05/27/21 16:00 Active 3 each PO QAM Polyethylene Glycol 3350 17 gm [Miralax Powder 17GM Med 05/27/21 10:00 Active PACKET] 17 gm PO QAM Simvastatin 20Mg [Zocor 20Mg] Med 05/27/21 17:00 Active 40 mg PO DINNER Sodium Chloride Nasal [place] [OCEAN Nasal [place]] Med 05/28/21 05:47 Active 1 ml NS Q2H PRN PRN Venlafaxine HCl ER 75 mg [Effexor XR 75 MG] Med 05/27/21 17:00 Active 150 mg PO DINNER Patient Care Notes (Last 24 hours) 05/28/21 06:10 Nursing Note by Sandip Oliver Pt c/o severe generalized pain, unable to give narcotic med d/t expected visit to Dr Solorzano's today (pain mgmt). Tylenol given, see emar. Pt repositioned for comfort. Pt had BM shortly after, then was much more comfortable. Will continue to monitor. Initialized on 05/28/21 06:10 - END OF NOTE Code(s): R41.82 - ALTERED MENTAL STATUS, UNSPECIFIED; T40.605A - ADVERSE EFFECT OF UNSPECIFIED NARCOTICS, INITIAL ENCOUNTER (2) Altered mental status Current Visit: Yes Status: Resolved Code(s): R41.82 - ALTERED MENTAL STATUS, UNSPECIFIED (3) Pancreatitis Current Visit: Yes Status: Resolved Code(s): K85.90 - ACUTE PANCREATITIS WITHOUT NECROSIS OR INFECTION, UNSP (4) Neurogenic bladder Current Visit: Yes Status: Chronic Code(s): N31.9 - NEUROMUSCULAR DYSFUNCTION OF BLADDER, UNSPECIFIED (5) Paraplegia Current Visit: No Status: Chronic Code(s): G82.20 - PARAPLEGIA, UNSPECIFIED - Discharge Discharge Date: 05/28/21 Disposition: Home, Self-Care Condition: Stable Prescriptions: No Action Venlafaxine HCl [Effexor Xr] 150 mg PO DINNER Testosterone Cypionate 200 mg IM UD Cranberry 15,000 mg PO DINNER Multivitamin [Multivitamins] 1 each PO QAM Docusate Sodium [Stool Softener] 250 mg PO TID Ranolazine 500 MG [Ranexa 500 MG] 500 mg PO BID Polyethylene Glycol 3350 [Miralax] 17 gm PO QAM Isosorbide Mononitrate [Isosorbide Mononitrate ER] 60 mg PO LUNCH Atorvastatin Calcium [Lipitor] 40 mg PO DINNER Naloxegol Oxalate [Movantik] 25 mg PO QAM L.acidoph,Paracasei, B.lactis [Probiotic] 1 each PO DINNER Bisacodyl 10 mg [Dulcolax 10 MG SUPP] 10 mg RC DAILY PRN PRN PRN Reason: Constipation lamoTRIgine [Lamotrigine] 200 mg PO DAILY Clopidogrel Bisulfate 75 mg [PLAVIX 75 MG Tablet] 75 mg PO LUNCH Aspirin [Aspirin EC] 81 mg PO QAM Losartan Potassium 50 mg [Cozaar 50 MG] 50 mg PO BID #180 tablet Metoprolol Succinate 100 mg [Toprol Xl 100 MG] 100 mg PO DAILY #90 tablet.sa Trazodone HCl 50 mg [Desyrel 50 mg] 50 mg PO HS Amlodipine Besylate 5 mg [Norvasc 5 mg] 5 mg PO DAILY OXcarbazepine [Trileptal] 300 mg PO DAILY Gabapentin [Gralise] 600 mg PO QAM Gabapentin [Gralise] 1,800 mg PO DINNER Loperamide HCl 2 mg [Imodium 2 mg] 1 - 2 tab PO Q4H PRN PRN 15 Days #30 PRN Reason: Diarrhea Simethicone [Gas Relief] 125 mg PO BID Nitroglycerin 0.4 mg SL UD Buprenorphine HCl [Belbuca] 900 mcg BC Q12H Methylnaltrexone [place] [Relistor] 450 mg PO QAM Cephalexin Mh 250 mg [Keflex 250 mg] 250 mg PO DAILY Instructions: Chronic Pain (DC) Additional Instructions: Patient to go directly to Dr. Solorzano's office when discharged to manage pain medications. Per Dr. Link, patient to take home medication Belbuca with them to appointment for Dr. Solorzano to review. Follow up with: ANYA SOLORZANO I [NON-STAFF PHY W/O PRIVILEGES] - (Go straight to office when discharged to manage pain medications) PRERNA LINK MD [Primary Care Provider] - Forms: Discharge Instructions
[2021-05-28] MEDS: THERAGRAN MULTIVITAMIN PO SCH (08:32)
[2021-05-28] MEDS: Ranexa 500 MG PO SCH (08:32)
[2021-05-28] MEDS: lamICTAL 100MG TABLET PO SCH (08:32)
[2021-05-28] MEDS: PROTONIX 40 MG IV IV SCH (08:32)
[2021-05-28] MEDS: Mylicon 80MG PO SCH (08:32)
[2021-05-28] MEDS: ECOTRIN 81 MG PO SCH (08:32)
[2021-05-28] MEDS: Toprol Xl 100 MG PO SCH (08:33)
[2021-05-28] MEDS: KEFLEX 250 MG PO SCH (08:33)
[2021-05-28] MEDS: NORVASC 5 MG PO SCH (08:33)
[2021-05-28] MEDS: PATIENT OWN MEDICATION PO SCH ×2 (08:34→08:37)
[2021-05-28] MEDS: Cozaar 50 MG PO SCH (08:34)
[2021-05-28] MEDS: Trileptal 300 MG Tablet PO SCH (08:35)
[2021-05-28] MEDS: Miralax Powder 17GM PACKET PO SCH (08:36)
== END 2021-05-28 10:07 | disposition home or self-care (01) ==
LOC: ED 15:36 → MED SURG 20:19
PROVIDERS: ADMIT General Practice; ATTEND General Practice
DX: R41.82 Altered mental status, unspecified (principal); T40.605A Adverse effect of unspecified narcotics, initial encounter; K85.90 Acute pancreatitis without necrosis or infection, unspecified; N31.9 Neuromuscular dysfunction of bladder, unspecified; G82.20 Paraplegia, unspecified; I25.10 Atherosclerotic heart disease of native coronary artery without angina pectoris; E78.00 Pure hypercholesterolemia, unspecified; I10 Essential (primary) hypertension; E11.9 Type 2 diabetes mellitus without complications; Z79.899 Other long term (current) drug therapy; Z20.828 Contact with and (suspected) exposure to other viral communicable diseases
CPT/HCPCS: 0241U; 36000; 36415; 51702; 70450; 71045; 74176; 80053; 80307; 81001; 82150; 82947; 83036; 83605; 83690; 84484; 85025; 85027; 85610; 87086; 94762; 96360; 96374; 96375; 99285; 93268; J1170; A9270-GY; G0378

== ENCOUNTER 2022-06-22 14:42 | Inpatient (IN) | payer MEDICARE, OTHER ==
--- NOTE | 2022-06-22 14:47 | ERPHSYRPT ---
- History of Present Illness Time Seen by Provider: 06/22/22 14:46 Source: patient Exam Limitations: no limitations Physician History: This is an overweight 76-year-old white male quadriplegic who has a history of hyperlipidemia, hypertension, decubitus ulcer with wound VAC in place, on Plavix who presents to the emergency department with increasing weakness, hypoxia and swelling of the left lower extremity over the last 2 to 3 days. Patient has a history of sleep apnea and uses CPAP at night. He has a history of colon cancer and has had a colon resection in the past. He also has a history of a CABG and cardiac stents and has coronary artery disease. He is not complaining of chest pain. However he is having increasing shortness of breath with exertion. His room air oxygenation level yesterday was 88%. He does not use oxygen during the day. He only has CPAP at night to help combat sleep apnea. Timing/Duration: day(s) (2 to 3 days), worse Severity of Dyspnea-Max: mild (To moderate) Severity of Dyspnea-Current: mild (To moderate) Possible Cause: occasional episodes Modifying Factors: Improves With: activity (Worsens), rest (Improved) Associated Symptoms: leg swelling (Left leg), No chest pain/discomfort Allergies/Adverse Reactions: No Known Drug Allergies Allergy (Verified 06/22/22 14:59) Home Medications: Testosterone Cypionate 200 mg IM UD 05/18/16 [History] Venlafaxine HCl [Effexor Xr] 150 mg PO DINNER 05/18/16 [History] Cranberry 15,000 mg PO DINNER 06/19/16 [History] Multivitamin [Multivitamins] 1 each PO QAM 06/19/16 [History] Docusate Sodium [Stool Softener] 250 mg PO TID 01/11/17 [History] Atorvastatin Calcium [Lipitor] 40 mg PO DINNER 01/18/17 [History] Isosorbide Mononitrate [Isosorbide Mononitrate ER] 60 mg PO LUNCH 01/18/17 [History] Polyethylene Glycol 3350 [Miralax] 17 gm PO QAM 01/18/17 [History] Ranolazine 500 MG [Ranexa 500 MG] 500 mg PO BID 01/18/17 [History] Bisacodyl 10 mg [Dulcolax 10 MG SUPP] 10 mg RC DAILY PRN PRN 10/09/18 [History] L.acidoph,Paracasei, B.lactis [Probiotic] 1 each PO DINNER 10/09/18 [History] Naloxegol Oxalate [Movantik] 25 mg PO QAM 10/09/18 [History] lamoTRIgine [Lamotrigine] 200 mg PO DAILY 10/09/18 [History] Aspirin [Aspirin EC] 81 mg PO QAM 01/06/19 [History] Clopidogrel Bisulfate [PLAVIX Tablet] 75 mg PO LUNCH 01/06/19 [History] Trazodone HCl 50 mg [Desyrel 50 mg] 50 mg PO HS 04/03/19 [History] Amlodipine Besylate 5 mg [Norvasc 5 mg] 5 mg PO DAILY 03/26/20 [History] OXcarbazepine [Trileptal] 300 mg PO DAILY 04/22/20 [History] Gabapentin [Gralise] 600 mg PO QAM 05/15/20 [History] Gabapentin [Gralise] 1,800 mg PO DINNER 02/16/21 [History] Nitroglycerin 0.4 mg SL UD 05/06/21 [History] Simethicone [Gas Relief] 125 mg PO BID 05/06/21 [History] Buprenorphine HCl [Belbuca] 900 mcg BC Q12H 05/26/21 [History] Cephalexin Mh 250 mg [Keflex 250 mg] 250 mg PO DAILY 05/26/21 [History] Methylnaltrexone Sturdivant [Relistor] 450 mg PO QAM 05/26/21 [History] Hx Tetanus, Diphtheria Vaccination/Date Given: No Hx Influenza Vaccination/Date Given: No Hx Pneumococcal Vaccination/Date Given: No Travel Risk - International Travel Have you traveled outside of the country in past 3 weeks: No - Coronavirus Screening Are you exhibiting any of the following symptoms?: Yes Symptoms: Shortness of Breath Close contact with a COVID-19 positive Pt in past 14-21 Days: No - Vaccine Status Have you recieved a Covid-19 vaccination: No - Review of Systems Constitutional: Weakness Eyes: No Symptoms Ears, Nose, & Throat: No Symptoms Respiratory: Dyspnea on Exertion (UGALDE) Cardiac: No Symptoms Abdominal/Gastrointestinal: No Symptoms Genitourinary Symptoms: No Symptoms Musculoskeletal: Other (Increased swelling left lower extremity compared to right lower extremity) Skin: No Symptoms Neurological: No Symptoms Psychological: No Symptoms Endocrine: No Symptoms Hematologic/Lymphatic: No Symptoms Immunological/Allergic: No Symptoms All Other Systems: Reviewed and Negative - Past Medical History Pertinent Past Medical History: Yes Neurological History: Other ENT History: Cataracts Cardiac History: Coronary Artery Disease, High Cholesterol, Hypertension, Other Respiratory History: Sleep Apnea Endocrine Medical History: Diabetes Type II Musculoskeletal History: Arthritis GI Medical History: Colorectal Cancer, GI Bleed History: No Pertinent History Psycho-Social History: No Pertinent History Male Reproductive Disorders: No Pertinent History Other Medical History: Cardiac stents. Spinal cord injury 2010, quadraplegia. Hx of cervical fx, unable to recall date. watching carotids- scanned apr 2021. pressure wound to bottom- healing and being treated - Past Surgical History Past Surgical History: Yes Neuro Surgical History: No Pertinent History Cardiac: CABG, Cardiac Catheterization, Cardiac Stent Respiratory: No Pertinent History Gastrointestinal: Appendectomy, Cholecystectomy, Colon Resection Genitourinary: Other Musculoskeletal: Orthopedic Surgery Male Surgical History: No Pertinent History Other Surgical History: BACK reconstruction quadrapalegic t3-T7. Left leg operation times 3, COLON CA AND RESECTION IN JAN, 2016, CABG 2015, fall 2011, wound on buttock cultured pos. suprapubic cath attempted only- unsuccessful - Social History Smoking Status: Former smoker How long have you smoked: 40 years Exposure to second hand smoke: No Alcohol Use: None Drug Use: none Patient Lives Alone: Yes Significant Family History: heart disease, diabetes - Nursing Vital Signs Nursing Vital Signs: Initial Vital Signs Temperature 97.7 F 06/22/22 15:00 Pulse Rate 74 06/22/22 15:00 Respiratory Rate 20 06/22/22 15:00 Blood Pressure 151/68 06/22/22 15:00 O2 Sat by Pulse Oximetry 96 06/22/22 15:00 Pain Scale Pain Intensity 10 - Physical Exam General Appearance: no apparent distress, alert, anxiety Eye Exam: PERRL/EOMI, eyes nml inspection Ears, Nose, Throat Exam: hearing grossly normal, normal ENT inspection Neck Exam: normal inspection, non-tender, supple, full range of motion Respiratory Exam: normal breath sounds, lungs clear, airway intact, No chest tenderness, No respiratory distress Cardiovascular/Chest Exam: normal heart sounds, regular rate/rhythm Abdominal/Gastrointestinal Exam: soft, normal bowel sounds, No tenderness Rectal Exam: not done Extremity Exam: swelling (Left lower extremity compared to the right lower extremity) Neurologic Exam: alert, oriented x 3, cooperative, normal mood/affect, other (Patient has no motor control control or sensation from mid abdomen distally) Lymphatic Exam: No adenopathy SpO2 Interpretation: normal O2 Delivery: Room Air - Course Nursing assessment & vital signs reviewed: Yes EKG Interpreted by Me: RATE (71), Sinus Rhythm, NORMAL AXIS, Other (A long FL interval. No acute ischemic changes on today's EKG.) Ordered Tests: Active Orders 24 hr Category Date Time Status EKG-ER Only STAT Care 06/22/22 15:00 Active Dinero [Catheter-[place] Dinero] STAT Care 06/22/22 15:34 Active IV Insertion STAT Care 06/22/22 15:00 Active Pulse Oximetry (ED) STAT Care 06/22/22 15:00 Active ABDOMEN AND PELVIS W/0 CONTRAS [CT] Stat Exams 06/22/22 15:26 Completed CHEST 1 VIEW (PORTABLE) Stat Exams 06/22/22 15:01 Completed FEMUR Stat Exams 06/22/22 15:03 Completed KNEE (1 OR 2 VIEW) Stat Exams 06/22/22 15:03 Completed LOWER LEG Stat Exams 06/22/22 15:02 Completed VENOUS UNILAT/LIMITED EXTREMIT [US] Stat Exams 06/22/22 15:02 Completed BLOOD CULTURE Stat Lab 06/22/22 15:20 Received CBC W DIFF Stat Lab 06/22/22 15:00 Completed CMP Stat Lab 06/22/22 19:25 Completed CULTURE,URINE Stat Lab 06/22/22 15:35 Received NT PRO BNPII Stat Lab 06/22/22 15:20 Completed TROPONIN Q4H Lab 06/22/22 19:25 Completed TROPONIN Q4H Lab 06/22/22 23:15 Ordered TROPONIN Q4H Lab 06/23/22 03:15 Ordered UA W/RFX UR CULTURE Stat Lab 06/22/22 15:35 Completed Transfer Order Routine Transfer 06/22/22 Ordered Medication Summary Discontinued Medications Generic Name Dose Route Start Last Admin Trade Name Freq PRN Reason Stop Dose Admin Ceftriaxone Sodium/Dextrose 1 g in 50 mls @ 100 mls/hr 06/22/22 17:28 06/22/22 20:05 Rocephin 1 Gm-D5w 50 Ml Bag IV 06/22/22 17:57 Infused STAT STA Infusion Ceftriaxone Sodium/Dextrose Confirm 06/22/22 18:47 Rocephin 1 Gm-D5w 50 Ml Bag Administered 06/22/22 18:48 Dose 1 g in 50 mls @ ud IV .K-MED ONE Lab/Rad Data: Laboratory Result Diagrams 06/22/22 15:00 06/22/22 19:25 Laboratory Results 06/22/22 06/22/22 06/22/22 Range/Units 19:25 19:25 15:35 WBC (4.0-10.5) x10^3/uL RBC (4.1-5.6) x10^6/uL Hgb (12.5-18.0) g/dL Hct (42-50) % MCV (78-100) fL MCH (26-32) pg MCHC (32-36) g/dL RDW (11.5-14.0) % Plt Count (150-450) x10^3/uL MPV (7.5-11.0) fL Gran % (36.0-66.0) % Immature Gran % (Auto) (0.00-0.4) % Nucleat RBC Rel Count (0.00-0.1) % Eos # (Auto) (0-0.5) x10^3/uL Immature Gran # (Auto) (0.00-0.03) x10^3u/L Absolute Lymphs (auto) (1.0-4.6) x10^3/uL Absolute Monos (auto) (0.0-1.3) x10^3/uL Absolute Nucleated RBC (0.00-0.01) x10^3u/L Lymphocytes % (24.0-44.0) % Monocytes % (0.0-12.0) % Eosinophils % (0.00-5.0) % Basophils % (0.0-0.4) % Absolute Granulocytes (1.4-6.9) x10^3/uL Basophils # (0-0.4) x10^3/uL Sodium 138 (137-145) mmol/L Potassium 3.9 (3.5-5.1) mmol/L Chloride 102 (98-107) mmol/L Carbon Dioxide 29 (22-30) mmol/L Anion Gap 10.4 (5-15) MEQ/L BUN 13 (9-20) mg/dL Creatinine 0.71 (0.66-1.25) mg/dL Estimated GFR > 60.0 ML/MIN Glucose 98 (74-106) mg/dL Calcium 8.5 (8.4-10.2) mg/dL Total Bilirubin 0.60 (0.2-1.3) mg/dL AST 35 (17-59) U/L ALT 15 (0-50) U/L Alkaline Phosphatase 190 H (38-126) U/L Troponin I < 0.012 (0.000-0.034) ng/mL NT-Pro-B Natriuret Pep (<300) pg/mL Serum Total Protein 6.5 (6.3-8.2) g/dL Albumin 3.3 L (3.5-5.0) g/dL Urine Color Yellow (Yellow) Urine Appearance Cloudy A (Clear) Urine pH 6.5 (4.6-8.0) Ur Specific [place] 1.010 (1.005-1.030) Urine Protein 30 (Negative) Urine Glucose (UA) Negative (Negative) mg/dL Urine Ketones Negative (Negative) Urine Blood Small A (Negative) Urine Nitrite Positive A (Negative) Urine Bilirubin Negative (Negative) Urine Urobilinogen 1.0 A (0.2) mg/dL Ur Leukocyte Esterase Large A (Negative) U Hyaline Cast (Auto) NONE SEEN (0-2) /LPF Urine Microscopic RBC 6-10 A (0-5) /HPF Urine Microscopic WBC >100 A (0-5) /HPF Ur Epithelial Cells Few (None Seen) /HPF Urine Bacteria Many A (None Seen) /HPF Urine Culture Reflexed YES (NO) Influenza Type A Ag (NEGATIVE) Influenza Type B Ag (NEGATIVE) RSV (PCR) (NEGATIVE) SARS-CoV-2 (PCR) (NEGATIVE) 06/22/22 06/22/22 06/22/22 Range/Units 15:20 15:20 15:00 WBC 6.7 (4.0-10.5) x10^3/uL RBC 3.55 L (4.1-5.6) x10^6/uL Hgb 9.2 L (12.5-18.0) g/dL Hct 30.8 L (42-50) % MCV 86.8 (78-100) fL MCH 25.9 L (26-32) pg MCHC 29.9 L (32-36) g/dL RDW 17.2 H (11.5-14.0) % Plt Count 231 (150-450) x10^3/uL MPV 9.2 (7.5-11.0) fL Gran % 67.4 H (36.0-66.0) % Immature Gran % (Auto) 1.0 H (0.00-0.4) % Nucleat RBC Rel Count 0.3 H (0.00-0.1) % Eos # (Auto) 0 (0-0.5) x10^3/uL Immature Gran # (Auto) 0.07 H (0.00-0.03) x10^3u/L Absolute Lymphs (auto) 1.34 (1.0-4.6) x10^3/uL Absolute Monos (auto) 0.76 (0.0-1.3) x10^3/uL Absolute Nucleated RBC 0.02 H (0.00-0.01) x10^3u/L Lymphocytes % 20.0 L (24.0-44.0) % Monocytes % 11.3 (0.0-12.0) % Eosinophils % 0.0 (0.00-5.0) % Basophils % 0.3 (0.0-0.4) % Absolute Granulocytes 4.52 (1.4-6.9) x10^3/uL Basophils # 0.02 (0-0.4) x10^3/uL Sodium (137-145) mmol/L Potassium (3.5-5.1) mmol/L Chloride (98-107) mmol/L Carbon Dioxide (22-30) mmol/L Anion Gap (5-15) MEQ/L BUN (9-20) mg/dL Creatinine (0.66-1.25) mg/dL Estimated GFR ML/MIN Glucose (74-106) mg/dL Calcium (8.4-10.2) mg/dL Total Bilirubin (0.2-1.3) mg/dL AST (17-59) U/L ALT (0-50) U/L Alkaline Phosphatase (38-126) U/L Troponin I (0.000-0.034) ng/mL NT-Pro-B Natriuret Pep 403 (<300) pg/mL Serum Total Protein (6.3-8.2) g/dL Albumin (3.5-5.0) g/dL Urine Color (Yellow) Urine Appearance (Clear) Urine pH (4.6-8.0) Ur Specific [place] (1.005-1.030) Urine Protein (Negative) Urine Glucose (UA) (Negative) mg/dL Urine Ketones (Negative) Urine Blood (Negative) Urine Nitrite (Negative) Urine Bilirubin (Negative) Urine Urobilinogen (0.2) mg/dL Ur Leukocyte Esterase (Negative) U Hyaline Cast (Auto) (0-2) /LPF Urine Microscopic RBC (0-5) /HPF Urine Microscopic WBC (0-5) /HPF Ur Epithelial Cells (None Seen) /HPF Urine Bacteria (None Seen) /HPF Urine Culture Reflexed (NO) Influenza Type A Ag NEGATIVE (NEGATIVE) Influenza Type B Ag NEGATIVE (NEGATIVE) RSV (PCR) NEGATIVE (NEGATIVE) SARS-CoV-2 (PCR) NEGATIVE (NEGATIVE) - Progress Air Movement: good Progress Note: 06/22/22 17:33 All x-rays were interpreted by the radiologist and I reviewed the impression. Venous Doppler left lower extremity shows no DVT. CT of the abdomen and pelvis without contrast shows a mid abdomen without complications. There is mild diffuse fecal stasis. There is a decubitus ulcer to the coccyx. Chest x-ray shows a nonacute chest with chronic features. Left femur x-raythere is a left femur with a markedly displaced and comminuted intertrochanteric fracture. Left knee x-ray shows a nonspecific effusion. Left lower leg shows an old proximal fibular fracture. There is also an old distal tibia/fibula fracture. Metal hardware is present. 06/22/22 20:20 This patient's medical issue is of high complexity. The level of complexity and the work-up performed was based on review of the patient's past medical history, medication list, drug allergy list, history of present illness and physical findings on examination. The work-up performed includes a IV line placement, CBC, CMP, troponin, BNP, chest x-ray x-ray of left hip, left femur, left knee, left tib-fib, venous Doppler left lower extremity, CT scan of the abdomen pelvis without contrast and chest x-ray. These were discussed with the patient and his family. In addition, these were discussed with Dr. Bhandari. Dr. Hobson I formulated a plan to admit this patient in the hospital, provide oxygen supplementation, intravenous fluids, intravenous antibiotics and respiratory therapy evaluation and management. The patient does have the fracture of the left femur. The patient does not want any surgical intervention. They want to be admitted into our facility knowing we do not have orthopedic surgery. Patient is paraplegic and does not have any feeling and does not ambulate. At this time they do not want any type of surgical intervention. Blood Culture(s) Obtained: Yes Antibiotics given: Yes Counseled pt/family regarding: lab results, diagnosis, rad results Medical Desision Making - Independent Historian Additional History obtained from: Spouse - Discussion of managment Reviewed:: Test results, Need for additional workup Agreed on:: Treatment plan, decision to admit Will see patient: in hospital - Diagnostic Testing Diagnostic test were ordered, analyzed, and reviewed by me: Yes Radiological Interpretation: Reviewed by me - Risk of complications The pt has a high risk of morbidity or mortality based on: Decision regarding hospitilization or escalation of hosp level of care - Departure Departure Disposition: In-patient Admission Clinical Impression: UTI (urinary tract infection), Intertrochanteric fracture, closed, Anemia, Hypoxia Condition: Stable Critical Care Time: No Referrals: [facility] [Primary Care Provider] - Follow up/PCP as directed
[2022-06-22 15:32] LABS: Absolute Neutrophil Ct (ANC) 4.52 x10^3/uL (1.4-6.9); BASOPHIL % 0.3 % (0.0-0.4); Basophil (Absolute #) 0.02 x10^3/uL (0-0.4); Eosinophil (Absolute #) 0 x10^3/uL (0-0.5); Hematocrit 30.8 % (42-50); Hemoglobin 9.2 g/dL (12.5-18.0); IMMATURE GRAN # 0.07 x10^3u/L (0.00-0.03); Lymphocyte (Absolute #) 1.34 x10^3/uL (1.0-4.6); Mean Cell Volume 86.8 fL (78-100); Mean Corpuscular Hemoglobin 25.9 pg (26-32); Mean Corpuscular Hgb Concent. 29.9 g/dL (32-36); Mean Platelet Volume 9.2 fL (7.5-11.0); Monocyte (Absolute #) 0.76 x10^3/uL (0.0-1.3); Monocytes % 11.3 % (0.0-12.0); NUCLEATED RBC # 0.02 x10^3u/L (0.00-0.01); NUCLEATED RBC % 0.3 % (0.00-0.1); Neutrophil % 67.4 % (36.0-66.0); Platelet Count 231 x10^3/uL (150-450); Red Blood Count 3.55 x10^6/uL (4.1-5.6); Red Cell Distribution Width 17.2 % (11.5-14.0); White Blood Count 6.7 x10^3/uL (4.0-10.5)
[2022-06-22 15:51] LABS: Appearance Cloudy (Clear); Bacteria Many /HPF (None Seen); Bilirubin Negative (Negative); Blood Small (Negative); Epithelial Cells Few /HPF (None Seen); Glucose, Urine Negative (Negative); Hyaline Casts NONE SEEN /LPF (0-2); Ketones Negative (Negative); Leukocyte Esterase Large (Negative); Nitrite Positive (Negative); Ph 6.5 (4.6-8.0); Protein,Urine Dip 30 (Negative); WBC >100 /HPF (0-5)
[2022-06-22 15:55] LABS: ADD URINE CULTURE? YES (NO)
[2022-06-22 16:10] LABS: INFLUENZA A NEGATIVE (NEGATIVE); INFLUENZA B NEGATIVE (NEGATIVE); RESPIRATORY SYNCTIAL VIRUS NEGATIVE (NEGATIVE); SARS-CoV-2 Xpert Express NEGATIVE (NEGATIVE)
--- NOTE | 2022-06-22 16:32 | XRAY ---
Indication: Edema. Two-dimensional sonogram and color Doppler imaging of the major venous vessels of the left leg performed. Comparison: None No thrombus seen in the examined deep venous vessels of the left leg including greater saphenous vein. Veins demonstrate normal compressibility. Venous waveforms are normal with and without augmentation. Impression: Left leg negative for DVT.
--- NOTE | 2022-06-22 16:49 | XRAY ---
Indication: No colostomy output 4 days. Multiple contiguous axial images obtained through the abdomen and pelvis without contrast. Comparison: November 13, 2021 Again beam artifact from bilateral T4-T12 spinal hardware. Lung bases grossly clear. Heart not enlarged. Stomach is distended with food/fluid. Noncontrasted stomach and bowel loops appear nonobstructed. New left midabdomen colostomy. There remains mild scattered colonic fecal debris throughout including ostomy. Rectal stump unremarkable. Again previous cholecystectomy. Urinary bladder demonstrates new tiny tumor air with new Dinero balloon catheter in situ. No free fluid/air. Remaining liver, pancreas, spleen, adrenal glands, kidneys, and ureters are unremarkable for noncontrast exam. Again mild scattered aortoiliac calcifications without AAA. Osseous structures intact again with osteopenia and moderate degenerative changes throughout the spine/both hips. Buttocks demonstrates new cutaneous/subcutaneous induration just posterior to the coccyx with subcutaneous emphysema concerning for infected decubitus ulcer. Impression: 1. Again beam artifact from spinal fusion hardware. 2. New left midabdomen colostomy without complications. Again mild diffuse fecal stasis. 3. New urinary bladder intraluminal air bubbles with Dinero balloon catheter. Gas forming bacterial infection not completely excluded. 4. New decubitus ulcer posterior to coccyx. Subcutaneous emphysema concerning for infection. 5. Again chronic findings including arteriosclerotic disease and chronic bony findings.
--- NOTE | 2022-06-22 16:51 | XRAY ---
Indication: Swelling. Comparison: None 2 view left femur demonstrates markedly displaced and comminuted intertrochanteric fracture. Elsewhere osteopenia, left hip degenerative arthropathy, extensive vascular calcifications, and multiple medial vascular clips.
--- NOTE | 2022-06-22 16:51 | XRAY ---
Indication: Short of breath. Comparison: May 26, 2021 Portable chest remains hyperinflated and clear. Heart not enlarged again with CABG. New left arm PICC line. Bony thorax intact again with osteopenia, degenerative changes, and bilateral T4-T12 spinal fusion hardware. Impression: Nonacute chest with chronic features.
--- NOTE | 2022-06-22 16:53 | XRAY ---
Indication: Swelling. No known injury. Comparison: None 2 view left lower leg demonstrates osteopenia, old proximal fibula shaft fracture, old distal tibia/fibula shaft fractures with 4 remnant orthopedic screws, tiny heel spurs, and scattered vascular calcifications. No other bony, articular, or soft tissue abnormalities.
--- NOTE | 2022-06-22 16:55 | XRAY ---
Indication: Swelling. No known injury. Comparison: None 2 view left knee demonstrates osteopenia, old proximal fibula shaft fracture, small nonspecific effusion, multiple medial vascular clips, and extensive vascular calcifications. No other bony, articular, or soft tissue abnormalities.
[2022-06-22] MEDS ORDERED: ROCEPHIN 1 Gm-D5w 50 ml Bag** 1 G/50 ML IVPB IV STA (17:28)
[2022-06-22] MEDS ORDERED: ROCEPHIN 1 Gm-D5w 50 ml Bag** 1 G/50 ML IVPB IV ONE (18:47)
[2022-06-22 19:46] LABS: ALBUMIN 3.3 g/dL (3.5-5.0); ALKALINE PHOSPHATASE 190 U/L (38-126); ANION GAP 10.4 MEQ/L (5-15); BLOOD UREA NITROGEN 13 mg/dL (9-20); CHLORIDE 102 mmol/L (98-107); Calcium 8.5 mg/dL (8.4-10.2); Carbon Dioxide 29 mmol/L (22-30); Creatinine 1 0.71 mg/dL (0.66-1.25); EST GLOMERULAR FILTRATION RATE > 60.0 ML/MIN; Glucose 98 mg/dL (74-106); Potassium 3.9 mmol/L (3.5-5.1); SGOT/AST 35 U/L (17-59); SGPT/ALT 15 U/L (0-50); SODIUM 138 mmol/L (137-145); Total Protein 6.5 g/dL (6.3-8.2)
[2022-06-22] MEDS ORDERED: TYLENOL 325 MG PO PRN (21:34)
[2022-06-22] MEDS ORDERED: Zofran 4 MG/2 ML VIAL IV PRN (21:34)
[2022-06-23] MEDS ORDERED: DESYREL 50 MG PO ONE (00:45)
[2022-06-23] MEDS ORDERED: Cozaar 50 MG PO ONE (00:45)
[2022-06-23] MEDS: Sodium Chloride 0.9% 1000 ML 1,000 ML IV SCH ×4 (01:22→21:26)
[2022-06-23 05:35] LABS: Absolute Neutrophil Ct (ANC) 4.07 x10^3/uL (1.4-6.9); BASOPHIL % 0.3 % (0.0-0.4); Basophil (Absolute #) 0.02 x10^3/uL (0-0.4); Eosinophil % 0.3 % (0.00-5.0); Eosinophil (Absolute #) 0.02 x10^3/uL (0-0.5); Hematocrit 32.6 % (42-50); IMMATURE GRAN # 0.05 x10^3u/L (0.00-0.03); IMMATURE GRAN % 0.9 % (0.00-0.4); Lymphocyte (Absolute #) 0.98 x10^3/uL (1.0-4.6); Lymphocytes % 17.1 % (24.0-44.0); Mean Cell Volume 84.7 fL (78-100); Mean Corpuscular Hgb Concent. 30.7 g/dL (32-36); Mean Platelet Volume 8.9 fL (7.5-11.0); Monocytes % 10.5 % (0.0-12.0); NUCLEATED RBC # 0.02 x10^3u/L (0.00-0.01); NUCLEATED RBC % 0.3 % (0.00-0.1); Neutrophil % 70.9 % (36.0-66.0); Platelet Count 214 x10^3/uL (150-450); Red Blood Count 3.85 x10^6/uL (4.1-5.6); Red Cell Distribution Width 17.4 % (11.5-14.0); White Blood Count 5.7 x10^3/uL (4.0-10.5)
[2022-06-23 06:35] LABS: ALBUMIN 3.2 g/dL (3.5-5.0); ALKALINE PHOSPHATASE 180 U/L (38-126); ANION GAP 12.3 MEQ/L (5-15); BLOOD UREA NITROGEN 10 mg/dL (9-20); CHLORIDE 105 mmol/L (98-107); Calcium 8.4 mg/dL (8.4-10.2); Carbon Dioxide 24 mmol/L (22-30); Creatinine 1 0.59 mg/dL (0.66-1.25); EST GLOMERULAR FILTRATION RATE > 60.0 ML/MIN; Glucose 100 mg/dL (74-106); NT PRO BNPII 758 pg/mL (<300); Potassium 3.8 mmol/L (3.5-5.1); SGOT/AST 33 U/L (17-59); SGPT/ALT 16 U/L (0-50); SODIUM 138 mmol/L (137-145); Total Protein 6.3 g/dL (6.3-8.2)
[2022-06-23] MEDS ORDERED: Dulcolax 10 MG SUPP RC PRN (07:13)
[2022-06-23] MEDS ORDERED: IMODIUM 2 MG PO PRN (07:13)
[2022-06-23] MEDS ORDERED: TESTOSTERONE CYPIONATE 200 MG/ML IM SCH (07:15)
[2022-06-23] MEDS ORDERED: Nitrostat 0.4 MG Tablet SL SCH (07:15)
[2022-06-23] MEDS ORDERED: MEDICATION INTERVENTION MC SCH ×4 (07:45→18:00)
[2022-06-23] MEDS ORDERED: DOCUSATE SODIUM 100 MG PO SCH (10:00)
[2022-06-23] MEDS ORDERED: LAMOTRIGINE PO SCH (10:00)
[2022-06-23] MEDS ORDERED: NALOXEGOL OXALATE 12.5 MG PO SCH (10:00)
[2022-06-23] MEDS ORDERED: NEURONTIN PO SCH ×2 (10:00→17:00)
[2022-06-23] MEDS ORDERED: NON-FORMULARY ITEM (Gabapentin [Gralise] 600 MG Tab.Er.24h) PO SCH ×2 (10:00→17:00)
[2022-06-23] MEDS ORDERED: NON-FORMULARY ITEM (Multivitamin [Multivitamins] 1 EACH Capsule) PO SCH (10:00)
[2022-06-23] MEDS: NORVASC 5 MG PO SCH (10:15)
[2022-06-23] MEDS: Docusate Sodium 100 MG PO SCH ×3 (10:15→21:28)
[2022-06-23] MEDS: lamICTAL 100MG TABLET PO SCH (10:16)
[2022-06-23] MEDS: ECOTRIN 81 MG PO SCH (10:16)
[2022-06-23] MEDS: Ranexa 500 MG PO SCH ×2 (10:16→21:29)
[2022-06-23] MEDS: THERAGRAN MULTIVITAMIN PO SCH (10:16)
[2022-06-23] MEDS: Toprol Xl 100 MG PO SCH (10:16)
[2022-06-23] MEDS: Cozaar 50 MG PO SCH ×2 (10:16→21:29)
[2022-06-23] MEDS ORDERED: DULCOLAX 5 MG PO PRN (10:31)
[2022-06-23] MEDS: PATIENT OWN MEDICATION PO SCH (12:48)
[2022-06-23] MEDS: Imdur 60MG PO SCH (12:48)
[2022-06-23] MEDS: PLAVIX Tablet PO SCH (12:48)
--- NOTE | 2022-06-23 13:23 | PCM.HP ---
History of Present Illness - Chief Complaint Chief Complaint: dyspnea,weakness History of Present Illness: is a 76 year old male paraplegic who presented to ER with shortness of breath,hypoxia and generalized weakness x 2-3 days. Also C/O constipation ,abdominal distension.C/O LLE swelling. PMHx includes HTN,HLD,CAD S/P CABG / stents on Plavix,sleep apnea uses CPap ,current gluteal decubitus ulcer with wound VAC in place, Colostomy S/P colon resection for colon cancer. C/O UGALDE but denies chest pain . Room air O2 sat was 88%. He does not use oxygen during the day. ER evaluation reveals UTI. Venous Doppler left lower extremity shows no DVT. CT of the abdomen and pelvis without contrast shows a mid abdomen without complications. There is mild diffuse fecal stasis. There is a decubitus ulcer to the coccyx. Chest x-ray shows a nonacute chest with chronic features. Left femur x-raythere is a left femur with a markedly displaced and comminuted intertrochanteric fracture. Left knee x-ray shows a nonspecific effusion. Left lower leg shows an old proximal fibular fracture. There is also an old distal tibia/fibula fracture. Metal hardware is present. Patient does not have any feeling from mid abdome down and is unable to bear weight . Patient does not want Orthopedic intervention for fracture. Patient is admitted fto Med surg for IV antibiotic,fluids and supportive care. - Review of Systems Constitutional: Fatigue, Weakness Eyes: No Symptoms Ears, Nose, & Throat: No Symptoms Respiratory: Short Of Breath Cardiac: Other (no chest pain) Abdominal/Gastrointestinal: Constipation (states no BM for a week) Genitourinary Symptoms: Urinary Retention (self cath for urination) Musculoskeletal: Back Pain (chronic, pain management follows) Skin: Decubiti Neurological: Paralysis ( ) Psychological: No Symptoms Endocrine: No Symptoms Hematologic/Lymphatic: No Symptoms Medications & Allergies Home Medications: Home Medication List Testosterone Cypionate 200 mg IM UD 05/18/16 [History Confirmed 06/22/22] Venlafaxine HCl [Effexor Xr] 150 mg PO DINNER 05/18/16 [History Confirmed 06/22/22] Multivitamin [Multivitamins] 1 each PO QAM 06/19/16 [History Confirmed 06/22/22] Docusate Sodium [Stool Softener] 250 mg PO TID 10/30/17 [History Confirmed 06/22/22] Atorvastatin Calcium [Lipitor] 40 mg PO DINNER 01/18/17 [History Confirmed 06/22/22] Isosorbide Mononitrate [Isosorbide Mononitrate ER] 60 mg PO LUNCH 01/18/17 [History Confirmed 06/22/22] Ranolazine 500 MG [Ranexa 500 MG] 500 mg PO BID 01/18/17 [History Confirmed 06/22/22] Bisacodyl 10 mg [Dulcolax 10 MG SUPP] 10 mg RC DAILY PRN PRN 10/09/18 [History Confirmed 06/22/22] L.acidoph,Paracasei, B.lactis [Probiotic] 1 each PO DINNER 10/09/18 [History Confirmed 06/22/22] Naloxegol Oxalate [Movantik] 25 mg PO QAM 10/09/18 [History Confirmed 06/22/22] lamoTRIgine [Lamotrigine] 200 mg PO DAILY 10/09/18 [History Confirmed 06/22/22] Aspirin [Aspirin EC] 81 mg PO QAM 01/06/19 [History Confirmed 06/22/22] Clopidogrel Bisulfate [PLAVIX Tablet] 75 mg PO LUNCH 01/06/19 [History Confirmed 06/22/22] Losartan Potassium 50 mg [Cozaar 50 MG] 50 mg PO BID #180 tablet 01/09/19 [Rx Confirmed 06/22/22] Metoprolol Succinate 100 mg [Toprol Xl 100 MG] 100 mg PO DAILY #90 tablet.sa 01/09/19 [Rx Confirmed 06/22/22] Trazodone HCl 50 mg [Desyrel 50 mg] 50 mg PO HS 04/03/19 [History Confirmed 06/22/22] Amlodipine Besylate 5 mg [Norvasc 5 mg] 5 mg PO DAILY 03/26/20 [History Confirmed 06/22/22] Gabapentin [Gralise] 600 mg PO QAM 05/15/20 [History Confirmed 06/22/22] Gabapentin [Gralise] 1,800 mg PO DINNER 02/16/21 [History Confirmed 06/22/22] Loperamide HCl 2 mg [Imodium 2 mg] 1 - 2 tab PO Q4H PRN PRN 15 Days #30 02/18/21 [Rx Confirmed 06/22/22] Nitroglycerin 0.4 mg SL UD 05/06/21 [History Confirmed 06/22/22] Tapentadol HCl [Nucynta] 0.5 - 1 tab PO Q4-6HPRN PRN 06/23/22 [History Confirmed 06/23/22] Allergies/Adverse Reactions: Allergies Allergy/AdvReac Type Severity Reaction Status Date / Time No Known Drug Allergies Allergy Verified 06/22/22 14:59 - Past Medical History Past Medical History: Yes Neurological History: Other ENT History: Cataracts Cardiac History: Coronary Artery Disease, High Cholesterol, Hypertension, Other Respiratory History: Sleep Apnea Endocrine Medical History: Diabetes Type II Musculoskelatal History: Arthritis GI Medical History: Colorectal Cancer, GI Bleed History: No Pertinent History Pyscho-Social History: No Pertinent History Male Reproductive Disorders: No Pertinent History Comment: Cardiac stents. Spinal cord injury 2010, quadraplegia. Hx of cervical fx, unable to recall date. watching carotids- scanned apr 2021. pressure wound to bottom- healing and being treated - Past Surgical History Past Surgical History: Yes Neuro Surgical History: No Pertinent History Cardiac History: CABG, Cardiac Catheterization, Cardiac Stent Respiratory Surgery: No Pertinent History GI Surgical History: Appendectomy, Cholecystectomy, Colon Resection Genitourinary Surgical Hx: Other Musculskeletal Surgical Hx: Orthopedic Surgery Male Surgical History: No Pertinent History Other Surgical History: BACK reconstruction quadrapalegic t3-T7. Left leg operation times 3, COLON CA AND RESECTION IN JAN, 2016, CABG 2015, fall 2011, wound on buttock cultured pos. suprapubic cath attempted only- unsuccessful - Social History Smoking Status: Unknown if ever smoked How long have you smoked: 40 years Exposure to second hand smoke: No Alcohol: None Drug Use: none Significant Family History: heart disease, diabetes - Physical Exam Vital Signs: Vital Signs - 24 hr Temp Pulse Resp BP Pulse Ox 06/23/22 11:45 97.8 F 76 17 127/80 95 06/23/22 07:30 98.0 F 86 18 162/78 92 L 06/23/22 07:00 97 06/23/22 04:00 97.5 F 80 20 157/77 97 06/23/22 01:00 97.5 F 80 20 157/77 97 06/23/22 00:16 98.0 F 87 20 144/67 94 L 06/23/22 00:00 82 18 144/74 92 L 06/22/22 21:45 82 18 92 L 06/22/22 20:08 74 20 144/74 96 06/22/22 16:02 74 155/80 92 L 06/22/22 15:11 95 06/22/22 15:00 97.7 F 74 20 151/68 96 General Appearance: mild distress (c/o increased abdominal discomfort /distention) Neurologic Exam: alert, oriented x 3, cooperative, normal mood/affect Eye Exam: eyes nml inspection Ears, Nose, Throat Exam: normal ENT inspection Neck Exam: normal inspection Cardiovascular Exam: regular rate/rhythm Gastrointestinal/Abdomen Exam: distention, other (colostomy with patey dark brow n stool) Back Exam: muscle spasm Extremity Exam: paralysis (waist down), other (LLE edema palpable fx) Wound Assessment: Skin/Wound Assessment Wound/Incision Assessment Start: 06/23/22 03:18 Text: Status: Active Freq: Q6H Protocol: Document 06/23/22 09:18 RDUHNE (Rec: 06/23/22 11:16 RDUHNE [id number]) Wound/Incision Assessment Sacrum Drain Type Hemovac Drainage Description Serosanguineous Odor Foul Odor Results - Labs Lab/Micro Results: Lab Results-Last 24 Hours 06/22/22 06/22/22 06/22/22 Range/Units 00:58 15:00 15:20 WBC 6.7 (4.0-10.5) x10^3/uL RBC 3.55 L (4.1-5.6) x10^6/uL Hgb 9.2 L (12.5-18.0) g/dL Hct 30.8 L (42-50) % MCV 86.8 (78-100) fL MCH 25.9 L (26-32) pg MCHC 29.9 L (32-36) g/dL RDW 17.2 H (11.5-14.0) % Plt Count 231 (150-450) x10^3/uL MPV 9.2 (7.5-11.0) fL Gran % 67.4 H (36.0-66.0) % Immature Gran % (Auto) 1.0 H (0.00-0.4) % Nucleat RBC Rel Count 0.3 H (0.00-0.1) % Eos # (Auto) 0 (0-0.5) x10^3/uL Immature Gran # (Auto) 0.07 H (0.00-0.03) x10^3u/L Absolute Lymphs (auto) 1.34 (1.0-4.6) x10^3/uL Absolute Monos (auto) 0.76 (0.0-1.3) x10^3/uL Absolute Nucleated RBC 0.02 H (0.00-0.01) x10^3u/L Lymphocytes % 20.0 L (24.0-44.0) % Monocytes % 11.3 (0.0-12.0) % Eosinophils % 0.0 (0.00-5.0) % Basophils % 0.3 (0.0-0.4) % Absolute Granulocytes 4.52 (1.4-6.9) x10^3/uL Basophils # 0.02 (0-0.4) x10^3/uL Sodium (137-145) mmol/L Potassium (3.5-5.1) mmol/L Chloride (98-107) mmol/L Carbon Dioxide (22-30) mmol/L Anion Gap (5-15) MEQ/L BUN (9-20) mg/dL Creatinine (0.66-1.25) mg/dL Estimated GFR ML/MIN Glucose (74-106) mg/dL Calcium (8.4-10.2) mg/dL Total Bilirubin (0.2-1.3) mg/dL AST (17-59) U/L ALT (0-50) U/L Alkaline Phosphatase (38-126) U/L Troponin I < 0.012 (0.000-0.034) ng/mL NT-Pro-B Natriuret Pep 403 (<300) pg/mL Serum Total Protein (6.3-8.2) g/dL Albumin (3.5-5.0) g/dL Urine Color (Yellow) Urine Appearance (Clear) Urine pH (4.6-8.0) Ur Specific [place] (1.005-1.030) Urine Protein (Negative) Urine Glucose (UA) (Negative) mg/dL Urine Ketones (Negative) Urine Blood (Negative) Urine Nitrite (Negative) Urine Bilirubin (Negative) Urine Urobilinogen (0.2) mg/dL Ur Leukocyte Esterase (Negative) U Hyaline Cast (Auto) (0-2) /LPF Urine Microscopic RBC (0-5) /HPF Urine Microscopic WBC (0-5) /HPF Ur Epithelial Cells (None Seen) /HPF Urine Bacteria (None Seen) /HPF Urine Culture Reflexed (NO) Influenza Type A Ag (NEGATIVE) Influenza Type B Ag (NEGATIVE) RSV (PCR) (NEGATIVE) SARS-CoV-2 (PCR) (NEGATIVE) 06/22/22 06/22/22 06/22/22 Range/Units 15:20 15:35 19:25 WBC (4.0-10.5) x10^3/uL RBC (4.1-5.6) x10^6/uL Hgb (12.5-18.0) g/dL Hct (42-50) % MCV (78-100) fL MCH (26-32) pg MCHC (32-36) g/dL RDW (11.5-14.0) % Plt Count (150-450) x10^3/uL MPV (7.5-11.0) fL Gran % (36.0-66.0) % Immature Gran % (Auto) (0.00-0.4) % Nucleat RBC Rel Count (0.00-0.1) % Eos # (Auto) (0-0.5) x10^3/uL Immature Gran # (Auto) (0.00-0.03) x10^3u/L Absolute Lymphs (auto) (1.0-4.6) x10^3/uL Absolute Monos (auto) (0.0-1.3) x10^3/uL Absolute Nucleated RBC (0.00-0.01) x10^3u/L Lymphocytes % (24.0-44.0) % Monocytes % (0.0-12.0) % Eosinophils % (0.00-5.0) % Basophils % (0.0-0.4) % Absolute Granulocytes (1.4-6.9) x10^3/uL Basophils # (0-0.4) x10^3/uL Sodium 138 (137-145) mmol/L Potassium 3.9 (3.5-5.1) mmol/L Chloride 102 (98-107) mmol/L Carbon Dioxide 29 (22-30) mmol/L Anion Gap 10.4 (5-15) MEQ/L BUN 13 (9-20) mg/dL Creatinine 0.71 (0.66-1.25) mg/dL Estimated GFR > 60.0 ML/MIN Glucose 98 (74-106) mg/dL Calcium 8.5 (8.4-10.2) mg/dL Total Bilirubin 0.60 (0.2-1.3) mg/dL AST 35 (17-59) U/L ALT 15 (0-50) U/L Alkaline Phosphatase 190 H (38-126) U/L Troponin I (0.000-0.034) ng/mL NT-Pro-B Natriuret Pep (<300) pg/mL Serum Total Protein 6.5 (6.3-8.2) g/dL Albumin 3.3 L (3.5-5.0) g/dL Urine Color Yellow (Yellow) Urine Appearance Cloudy A (Clear) Urine pH 6.5 (4.6-8.0) Ur Specific [place] 1.010 (1.005-1.030) Urine Protein 30 (Negative) Urine Glucose (UA) Negative (Negative) mg/dL Urine Ketones Negative (Negative) Urine Blood Small A (Negative) Urine Nitrite Positive A (Negative) Urine Bilirubin Negative (Negative) Urine Urobilinogen 1.0 A (0.2) mg/dL Ur Leukocyte Esterase Large A (Negative) U Hyaline Cast (Auto) NONE SEEN (0-2) /LPF Urine Microscopic RBC 6-10 A (0-5) /HPF Urine Microscopic WBC >100 A (0-5) /HPF Ur Epithelial Cells Few (None Seen) /HPF Urine Bacteria Many A (None Seen) /HPF Urine Culture Reflexed YES (NO) Influenza Type A Ag NEGATIVE (NEGATIVE) Influenza Type B Ag NEGATIVE (NEGATIVE) RSV (PCR) NEGATIVE (NEGATIVE) SARS-CoV-2 (PCR) NEGATIVE (NEGATIVE) 06/22/22 06/23/22 06/23/22 Range/Units 19:25 04:00 05:27 WBC 5.7 (4.0-10.5) x10^3/uL RBC 3.85 L (4.1-5.6) x10^6/uL Hgb 10.0 L (12.5-18.0) g/dL Hct 32.6 L (42-50) % MCV 84.7 (78-100) fL MCH 26.0 (26-32) pg MCHC 30.7 L (32-36) g/dL RDW 17.4 H (11.5-14.0) % Plt Count 214 (150-450) x10^3/uL MPV 8.9 (7.5-11.0) fL Gran % 70.9 H (36.0-66.0) % Immature Gran % (Auto) 0.9 H (0.00-0.4) % Nucleat RBC Rel Count 0.3 H (0.00-0.1) % Eos # (Auto) 0.02 (0-0.5) x10^3/uL Immature Gran # (Auto) 0.05 H (0.00-0.03) x10^3u/L Absolute Lymphs (auto) 0.98 L (1.0-4.6) x10^3/uL Absolute Monos (auto) 0.60 (0.0-1.3) x10^3/uL Absolute Nucleated RBC 0.02 H (0.00-0.01) x10^3u/L Lymphocytes % 17.1 L (24.0-44.0) % Monocytes % 10.5 (0.0-12.0) % Eosinophils % 0.3 (0.00-5.0) % Basophils % 0.3 (0.0-0.4) % Absolute Granulocytes 4.07 (1.4-6.9) x10^3/uL Basophils # 0.02 (0-0.4) x10^3/uL Sodium (137-145) mmol/L Potassium (3.5-5.1) mmol/L Chloride (98-107) mmol/L Carbon Dioxide (22-30) mmol/L Anion Gap (5-15) MEQ/L BUN (9-20) mg/dL Creatinine (0.66-1.25) mg/dL Estimated GFR ML/MIN Glucose (74-106) mg/dL Calcium (8.4-10.2) mg/dL Total Bilirubin (0.2-1.3) mg/dL AST (17-59) U/L ALT (0-50) U/L Alkaline Phosphatase (38-126) U/L Troponin I < 0.012 < 0.012 (0.000-0.034) ng/mL NT-Pro-B Natriuret Pep (<300) pg/mL Serum Total Protein (6.3-8.2) g/dL Albumin (3.5-5.0) g/dL Urine Color (Yellow) Urine Appearance (Clear) Urine pH (4.6-8.0) Ur Specific [place] (1.005-1.030) Urine Protein (Negative) Urine Glucose (UA) (Negative) mg/dL Urine Ketones (Negative) Urine Blood (Negative) Urine Nitrite (Negative) Urine Bilirubin (Negative) Urine Urobilinogen (0.2) mg/dL Ur Leukocyte Esterase (Negative) U Hyaline Cast (Auto) (0-2) /LPF Urine Microscopic RBC (0-5) /HPF Urine Microscopic WBC (0-5) /HPF Ur Epithelial Cells (None Seen) /HPF Urine Bacteria (None Seen) /HPF Urine Culture Reflexed (NO) Influenza Type A Ag (NEGATIVE) Influenza Type B Ag (NEGATIVE) RSV (PCR) (NEGATIVE) SARS-CoV-2 (PCR) (NEGATIVE) 06/23/22 Range/Units 05:27 WBC (4.0-10.5) x10^3/uL RBC (4.1-5.6) x10^6/uL Hgb (12.5-18.0) g/dL Hct (42-50) % MCV (78-100) fL MCH (26-32) pg MCHC (32-36) g/dL RDW (11.5-14.0) % Plt Count (150-450) x10^3/uL MPV (7.5-11.0) fL Gran % (36.0-66.0) % Immature Gran % (Auto) (0.00-0.4) % Nucleat RBC Rel Count (0.00-0.1) % Eos # (Auto) (0-0.5) x10^3/uL Immature Gran # (Auto) (0.00-0.03) x10^3u/L Absolute Lymphs (auto) (1.0-4.6) x10^3/uL Absolute Monos (auto) (0.0-1.3) x10^3/uL Absolute Nucleated RBC (0.00-0.01) x10^3u/L Lymphocytes % (24.0-44.0) % Monocytes % (0.0-12.0) % Eosinophils % (0.00-5.0) % Basophils % (0.0-0.4) % Absolute Granulocytes (1.4-6.9) x10^3/uL Basophils # (0-0.4) x10^3/uL Sodium 138 (137-145) mmol/L Potassium 3.8 (3.5-5.1) mmol/L Chloride 105 (98-107) mmol/L Carbon Dioxide 24 (22-30) mmol/L Anion Gap 12.3 (5-15) MEQ/L BUN 10 (9-20) mg/dL Creatinine 0.59 L (0.66-1.25) mg/dL Estimated GFR > 60.0 ML/MIN Glucose 100 (74-106) mg/dL Calcium 8.4 (8.4-10.2) mg/dL Total Bilirubin 0.50 (0.2-1.3) mg/dL AST 33 (17-59) U/L ALT 16 (0-50) U/L Alkaline Phosphatase 180 H (38-126) U/L Troponin I (0.000-0.034) ng/mL NT-Pro-B Natriuret Pep 758 (<300) pg/mL Serum Total Protein 6.3 (6.3-8.2) g/dL Albumin 3.2 L (3.5-5.0) g/dL Urine Color (Yellow) Urine Appearance (Clear) Urine pH (4.6-8.0) Ur Specific [place] (1.005-1.030) Urine Protein (Negative) Urine Glucose (UA) (Negative) mg/dL Urine Ketones (Negative) Urine Blood (Negative) Urine Nitrite (Negative) Urine Bilirubin (Negative) Urine Urobilinogen (0.2) mg/dL Ur Leukocyte Esterase (Negative) U Hyaline Cast (Auto) (0-2) /LPF Urine Microscopic RBC (0-5) /HPF Urine Microscopic WBC (0-5) /HPF Ur Epithelial Cells (None Seen) /HPF Urine Bacteria (None Seen) /HPF Urine Culture Reflexed (NO) Influenza Type A Ag (NEGATIVE) Influenza Type B Ag (NEGATIVE) RSV (PCR) (NEGATIVE) SARS-CoV-2 (PCR) (NEGATIVE) Microbiology 06/22/22 15:35 Urine Culture - Preliminary Urine, Void GRAM NEGATIVE ID AND SENSITIVITY PENDING - Radiology Impressions Radiology Exams & Impressions: Radiology Procedures Category Date Time Status ABDOMEN AND PELVIS W/0 CONTRAS [CT] Stat Exams 06/22/22 15:26 Completed CHEST 1 VIEW (PORTABLE) Stat Exams 06/22/22 15:01 Completed FEMUR Stat Exams 06/22/22 15:03 Completed KNEE (1 OR 2 VIEW) Stat Exams 06/22/22 15:03 Completed LOWER LEG Stat Exams 06/22/22 15:02 Completed VENOUS UNILAT/LIMITED EXTREMIT [US] Stat Exams 06/22/22 15:02 Completed - Other Procedures and Tests Respiratory Therapy 06/22/22 21:34 Oxygen Nasal Cannula 2 lpm 06/22/22 21:53 BiPap/CPAP ROUTINE Assessment/Plan (1) UGALDE (dyspnea on exertion) Current Visit: Yes Status: Acute Assessment & Plan: improved Code(s): R06.09 - OTHER FORMS OF DYSPNEA (2) UTI (urinary tract infection) Current Visit: Yes Status: Acute Assessment & Plan: Rocephin started in ER ,cult rowing gram neg bacteria Code(s): N39.0 - URINARY TRACT INFECTION, SITE NOT SPECIFIED (3) Abdominal distension (gaseous) Current Visit: No Status: Acute Code(s): R14.0 - ABDOMINAL DISTENSION (GASEOUS) (4) Constipation Current Visit: Yes Status: Acute Assessment & Plan: Dulcolax tabs,PT for increased activity Code(s): K59.00 - CONSTIPATION, UNSPECIFIED
[2022-06-23] MEDS ORDERED: MILK OF MAGNESIA 30 ML PO ONE (13:44)
[2022-06-23] MEDS ORDERED: Cyclobenzaprine 10 MG PO ONE (13:49)
[2022-06-23] MEDS ORDERED: TAPENTADOL HCL 100 MG PO PRN (16:30)
[2022-06-23 16:59] LABS: MAGNESIUM 1.8 mg/dL (1.6-2.3); TSH, 3RD Generation 0.576 mIU/L (0.47-4.68)
[2022-06-23] MEDS ORDERED: ZOCOR 20MG PO SCH (17:00)
[2022-06-23] MEDS ORDERED: NON-FORMULARY ITEM (Venlafaxine Hcl [Effexor Xr] 150 MG Cap.Er.24h) PO SCH (17:00)
[2022-06-23] MEDS ORDERED: Effexor XR 75 MG PO SCH (17:00)
[2022-06-23] MEDS ORDERED: Acidophilus TABLET PO SCH (17:00)
[2022-06-23] MEDS ORDERED: LIPITOR 40MG PO SCH (17:00)
[2022-06-23] MEDS ORDERED: NON-FORMULARY ITEM (L.Acidoph,Paracasei, B.Lactis [Probiotic] 1 EACH Capsule) PO SCH (17:00)
[2022-06-23] MEDS: PATIENT OWN MEDICATION PO PRN (17:48)
[2022-06-23] MEDS: NEURONTIN PO SCH (21:27)
[2022-06-23] MEDS: DESYREL 50 MG PO SCH ×2 (21:28→21:46)
[2022-06-23] MEDS ORDERED: ROCEPHIN 1 Gm-D5w 50 ml Bag** 1 G/50 ML IVPB IV SCH (22:00)
[2022-06-24] MEDS: Sodium Chloride 0.9% 1000 ML 1,000 ML IV SCH (07:42)
[2022-06-24] MEDS: PATIENT OWN MEDICATION PO PRN (07:43)
[2022-06-24] MEDS: NEURONTIN PO SCH ×2 (09:19→12:11)
[2022-06-24] MEDS: Docusate Sodium 100 MG PO SCH (09:19)
[2022-06-24] MEDS: Toprol Xl 100 MG PO SCH (09:19)
[2022-06-24] MEDS: Ranexa 500 MG PO SCH (09:20)
[2022-06-24] MEDS: NORVASC 5 MG PO SCH (09:20)
[2022-06-24] MEDS: THERAGRAN MULTIVITAMIN PO SCH (09:20)
[2022-06-24] MEDS: lamICTAL 100MG TABLET PO SCH (09:20)
[2022-06-24] MEDS: Cozaar 50 MG PO SCH (09:20)
[2022-06-24] MEDS: ECOTRIN 81 MG PO SCH (09:20)
[2022-06-24] MEDS: PATIENT OWN MEDICATION PO SCH (09:20)
[2022-06-24 11:06] VITALS: BP 146/67; PULSE 72; O2SAT 92
[2022-06-24 11:17] LABS: ALBUMIN 2.7 g/dL (3.5-5.0); ALKALINE PHOSPHATASE 216 U/L (38-126); ANION GAP 10.1 MEQ/L (5-15); BLOOD UREA NITROGEN 10 mg/dL (9-20); CHLORIDE 107 mmol/L (98-107); Calcium 7.9 mg/dL (8.4-10.2); Carbon Dioxide 26 mmol/L (22-30); Creatinine 1 0.64 mg/dL (0.66-1.25); EST GLOMERULAR FILTRATION RATE > 60.0 ML/MIN; Glucose 93 mg/dL (74-106); Potassium 3.6 mmol/L (3.5-5.1); SGOT/AST 30 U/L (17-59); SGPT/ALT 20 U/L (0-50); SODIUM 140 mmol/L (137-145); Total Protein 5.6 g/dL (6.3-8.2)
[2022-06-24 11:20] LABS: Absolute Neutrophil Ct (ANC) 3.35 x10^3/uL (1.4-6.9); BASOPHIL % 0.4 % (0.0-0.4); Basophil (Absolute #) 0.02 x10^3/uL (0-0.4); Eosinophil (Absolute #) 0 x10^3/uL (0-0.5); Hemoglobin 8.9 g/dL (12.5-18.0); IMMATURE GRAN # 0.07 x10^3u/L (0.00-0.03); IMMATURE GRAN % 1.3 % (0.00-0.4); Lymphocyte (Absolute #) 1.27 x10^3/uL (1.0-4.6); Lymphocytes % 23.6 % (24.0-44.0); Mean Cell Volume 87.2 fL (78-100); Mean Corpuscular Hemoglobin 25.9 pg (26-32); Mean Corpuscular Hgb Concent. 29.7 g/dL (32-36); Mean Platelet Volume 9.3 fL (7.5-11.0); Monocyte (Absolute #) 0.68 x10^3/uL (0.0-1.3); Monocytes % 12.6 % (0.0-12.0); NUCLEATED RBC # 0.02 x10^3u/L (0.00-0.01); NUCLEATED RBC % 0.4 % (0.00-0.1); Neutrophil % 62.1 % (36.0-66.0); Platelet Count 216 x10^3/uL (150-450); Red Blood Count 3.44 x10^6/uL (4.1-5.6); Red Cell Distribution Width 17.4 % (11.5-14.0); White Blood Count 5.4 x10^3/uL (4.0-10.5)
[2022-06-24] MEDS: Imdur 60MG PO SCH (12:10)
[2022-06-24] MEDS: PLAVIX Tablet PO SCH (12:11)
== END 2022-06-24 14:50 | disposition home health service (06) | DRG 204 ==
LOC: ED 14:42 → MED SURG 21:26
PROVIDERS: ADMIT Family Medicine; ATTEND Family Medicine
DX: R06.09 Other forms of dyspnea (principal); N39.0 Urinary tract infection, site not specified; G82.20 Paraplegia, unspecified; R14.0 Abdominal distension (gaseous); K59.00 Constipation, unspecified; R09.02 Hypoxemia; M79.89 Other specified soft tissue disorders; I10 Essential (primary) hypertension; E78.5 Hyperlipidemia, unspecified; I25.10 Atherosclerotic heart disease of native coronary artery without angina pectoris; G47.30 Sleep apnea, unspecified; E11.9 Type 2 diabetes mellitus without complications; L89.159 Pressure ulcer of sacral region, unspecified stage; S72.142A Displaced intertrochanteric fracture of left femur, initial encounter for closed fracture; Z85.038 Personal history of other malignant neoplasm of large intestine; Z95.1 Presence of aortocoronary bypass graft; Z20.828 Contact with and (suspected) exposure to other viral communicable diseases; Z79.899 Other long term (current) drug therapy; Z79.01 Long term (current) use of anticoagulants
CPT/HCPCS: 0241U; 36000; 36415; 51702; 71045; 73552; 73560; 73590; 74176; 80053; 81001; 82607; 83735; 83880; 84134; 84443; 84484; 85025; 87040; 87077; 87086; 87186; 93005; 93971; 94660; 94760; 96365; 99285; J0696; A9270-GY

== ENCOUNTER 2023-01-25 15:06 | Emergency (ER) | payer MEDICARE, OTHER ==
[2023-01-25 17:23] VITALS: TEMP 97.8
--- NOTE | 2023-01-25 19:01 | ERPHSYRPT ---
- History of Present Illness Time Seen by Provider: 01/25/23 19:01 Historian: patient, family Exam Limitations: no limitations Patient Subjective Stated Complaint: Pt states "I am paralized from the chest down and I am not supposed to feel anything but my belly and lower back is killing me." Triage Nursing Assessment: Pt presented alert and oriented X 3, skin pwd. Pt presented sitting upright in a power wheelchair. Pt in no apparent respiratory distress. Pt resting comfortably on the bed. Physician History: This is a 77-year-old white male patient of Dr. 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 Ordinarily he is paralyzed from the chest caudally and yesterday he began having some pain in his suprapubic region as well as in his back. He states in his low back specifically. There is sharp shooting pains that were intermittent yesterday but today they have been lasting longer and are more intense. Patient does do self-catheterization several times a day. Patient denies chest pain. Patient denies shortness of breath. Patient has a history of depression, hyperlipidemia, hypertension, type 2 diabetes as well as coronary artery disease (cardiac stents and CABG in the past). He has not had a fever as far as he is aware yesterday or today. Timing/Duration: yesterday, intermittent, worse Activities at Onset: none Quality: sharpness, stabbing Abdominal Pain Onset Location: suprapubic Pain Radiation: back Severity of Pain-Max: moderate Severity of Pain-Current: moderate Modifying Factors: Improves With: nothing Associated Symptoms: back, No chest pain, No diarrhea, No fever/chills, No loss of appetite, No nausea, No neck pain, No vomiting, No weakness Previous symptoms: no prior history Allergies/Adverse Reactions: No Known Drug Allergies Allergy (Verified 06/22/22 14:59) Home Medications: Testosterone Cypionate 200 mg IM UD 05/18/16 [History] Venlafaxine HCl [Effexor Xr] 150 mg PO DINNER 05/18/16 [History] Multivitamin [Multivitamins] 1 each PO QAM 06/19/16 [History] Docusate Sodium [Stool Softener] 250 mg PO TID 01/11/17 [History] Atorvastatin Calcium [Lipitor] 40 mg PO DINNER 01/18/17 [History] Isosorbide Mononitrate [Isosorbide Mononitrate ER] 60 mg PO LUNCH 01/18/17 [History] Ranolazine 500 MG [Ranexa 500 MG] 500 mg PO BID 01/18/17 [History] Bisacodyl 10 mg [Dulcolax 10 MG SUPP] 10 mg RC DAILY PRN PRN 10/09/18 [History] L.acidoph,Paracasei, B.lactis [Probiotic] 1 each PO DINNER 10/09/18 [History] Naloxegol Oxalate [Movantik] 25 mg PO QAM 10/09/18 [History] lamoTRIgine [Lamotrigine] 200 mg PO DAILY 10/09/18 [History] Aspirin [Aspirin EC] 81 mg PO QAM 01/06/19 [History] Clopidogrel Bisulfate [PLAVIX Tablet] 75 mg PO LUNCH 01/06/19 [History] Trazodone HCl 50 mg [Desyrel 50 mg] 50 mg PO HS 04/03/19 [History] Amlodipine Besylate 5 mg [Norvasc 5 mg] 5 mg PO DAILY 03/26/20 [History] Gabapentin [Gralise] 600 mg PO QAM 05/15/20 [History] Gabapentin [Gralise] 1,800 mg PO DINNER 02/16/21 [History] Nitroglycerin 0.4 mg SL UD 05/06/21 [History] Tapentadol HCl [Nucynta] 0.5 - 1 tab PO Q4-6HPRN PRN 06/23/22 [History] Hx Tetanus, Diphtheria Vaccination/Date Given: No Hx Influenza Vaccination/Date Given: No Hx Pneumococcal Vaccination/Date Given: No Immunizations Up to Date: No Travel Risk - International Travel Have you traveled outside of the country in past 3 weeks: No - Coronavirus Screening Are you exhibiting any of the following symptoms?: No Close contact with a COVID-19 positive Pt in past 14-21 Days: No - Vaccine Status Have you recieved a Covid-19 vaccination: No - Review of Systems Constitutional: No Symptoms Eyes: No Symptoms Ears, Nose, & Throat: No Symptoms Respiratory: No Symptoms Cardiac: No Symptoms Abdominal/Gastrointestinal: Abdominal Pain (Suprapubic) Genitourinary Symptoms: No Symptoms Musculoskeletal: Back Pain (Lumbar level) Skin: No Symptoms Neurological: No Symptoms Psychological: No Symptoms Endocrine: No Symptoms Hematologic/Lymphatic: No Symptoms Immunological/Allergic: No Symptoms All Other Systems: Reviewed and Negative - Past Medical History Pertinent Past Medical History: Yes Neurological History: Other ENT History: Cataracts Cardiac History: Coronary Artery Disease, High Cholesterol, Hypertension, Other Respiratory History: Sleep Apnea Endocrine Medical History: Diabetes Type II Musculoskeletal History: Arthritis GI Medical History: Colorectal Cancer, GI Bleed History: No Pertinent History Psycho-Social History: No Pertinent History Male Reproductive Disorders: No Pertinent History Other Medical History: Cardiac stents. Spinal cord injury 2010, quadraplegia. Hx of cervical fx, unable to recall date. watching carotids- scanned apr 2021. pressure wound to bottom- healing and being treated - Past Surgical History Past Surgical History: Yes Neuro Surgical History: No Pertinent History Cardiac: CABG, Cardiac Catheterization, Cardiac Stent Respiratory: No Pertinent History Gastrointestinal: Appendectomy, Cholecystectomy, Colon Resection Genitourinary: Other Musculoskeletal: Orthopedic Surgery Male Surgical History: No Pertinent History Other Surgical History: BACK reconstruction quadrapalegic t3-T7. Left leg operation times 3, COLON CA AND RESECTION IN JAN, 2016, CABG 2015, fall 2011, wound on buttock cultured pos. suprapubic cath attempted only- unsuccessful - Social History Smoking Status: Unknown if ever smoked How long have you smoked: 40 years Exposure to second hand smoke: No Alcohol Use: None Drug Use: none Patient Lives Alone: No Significant Family History: heart disease, diabetes - Nursing Vital Signs Nursing Vital Signs: Initial Vital Signs Temperature 97.8 F 01/25/23 17:17 Pulse Rate 60 01/25/23 17:17 Respiratory Rate 20 01/25/23 17:17 Blood Pressure 172/76 01/25/23 17:17 O2 Sat by Pulse Oximetry 97 01/25/23 17:17 Pain Scale Pain Intensity 6 - Physical Exam General Appearance: no apparent distress, alert, anxiety, obese Eye Exam: PERRL/EOMI, eyes nml inspection Ears, Nose, Throat Exam: normal ENT inspection, moist mucous membranes Neck Exam: normal inspection, non-tender, supple, full range of motion Respiratory Exam: normal breath sounds, lungs clear, airway intact, No chest tenderness, No respiratory distress Cardiovascular Exam: regular rate/rhythm, normal heart sounds, normal peripheral pulses Gastrointestinal/Abdomen Exam: soft, normal bowel sounds, No tenderness, No guarding Rectal Exam: not done Back Exam: normal inspection, other (Patient is a quadriplegic from the chest distally/caudally) Extremity Exam: pelvis stable Neurologic Exam: alert, oriented x 3, cooperative, cryptologist II-XII nml as tested, normal mood/affect Skin Exam: normal color, warm, dry Lymphatic Exam: No adenopathy SpO2 Interpretation: borderline oxygenation SpO2: 92 O2 Delivery: Room Air - Course Nursing assessment & vital signs reviewed: Yes Ordered Tests: Active Orders 24 hr Category Date Time Status IV Insertion STAT Care 01/25/23 19:01 Active ABDOMEN AND PELVIS W/0 CONTRAS [CT] Stat Exams 01/25/23 19:02 Taken RECONSTRUCTION [CT] Stat Exams 01/25/23 19:03 Taken AMYLASE Stat Lab 01/25/23 19:12 Completed CBC W DIFF Stat Lab 01/25/23 19:01 Completed CMP Stat Lab 01/25/23 19:12 Completed CULTURE,URINE Stat Lab 01/25/23 20:47 Received LIPASE Stat Lab 01/25/23 19:12 Completed Lactic Acid Stat Lab 01/25/23 19:19 Completed UA W/RFX UR CULTURE Stat Lab 01/25/23 20:47 Completed Medication Summary Generic Name Dose Route Start Last Admin Trade Name Freq PRN Reason Stop Dose Admin Sodium Chloride 1,000 mls @ 100 mls/hr 01/25/23 19:15 01/25/23 20:04 Sodium Chloride 0.9% 1000 Ml IV 02/24/23 19:14 100 mls/hr .Q10H SHAI Administration Discontinued Medications Generic Name Dose Route Start Last Admin Trade Name Freq PRN Reason Stop Dose Admin Morphine Sulfate 2 mg 01/25/23 20:25 01/25/23 20:37 Morphine Sulfate 2 Mg/Ml Inj IV 01/25/23 20:26 2 mg STAT ONE Administration Morphine Sulfate Confirm 01/25/23 20:36 Morphine Sulfate 2 Mg/Ml Inj Administered 01/25/23 20:37 Dose 2 mg .ROUTE .STK-MED ONE Ondansetron HCl 4 mg 01/25/23 20:25 01/25/23 20:37 Ondansetron Hcl 4 Mg/2 Ml Vial IV 01/25/23 20:26 4 mg STAT ONE Administration Ondansetron HCl Confirm 01/25/23 20:36 Ondansetron Hcl 4 Mg/2 Ml Vial Administered 01/25/23 20:37 Dose 4 mg .ROUTE .STK-MED ONE Lab/Rad Data: Laboratory Result Diagrams 01/25/23 19:01 01/25/23 19:12 Laboratory Results 01/25/23 01/25/23 01/25/23 Range/Units 20:47 19:19 19:12 WBC (4.0-10.5) x10^3/uL RBC (4.1-5.6) x10^6/uL Hgb (12.5-18.0) g/dL Hct (42-50) % MCV (78-100) fL MCH (26-32) pg MCHC (32-36) g/dL RDW (11.5-14.0) % Plt Count (150-450) x10^3/uL MPV (7.5-11.0) fL Gran % (36.0-66.0) % Immature Gran % (Auto) (0.00-0.4) % Nucleat RBC Rel Count (0.00-0.1) % Eos # (Auto) (0-0.5) x10^3/uL Immature Gran # (Auto) (0.00-0.03) x10^3u/L Absolute Lymphs (auto) (1.0-4.6) x10^3/uL Absolute Monos (auto) (0.0-1.3) x10^3/uL Absolute Nucleated RBC (0.00-0.01) x10^3u/L Lymphocytes % (24.0-44.0) % Monocytes % (0.0-12.0) % Eosinophils % (0.00-5.0) % Basophils % (0.0-0.4) % Absolute Granulocytes (1.4-6.9) x10^3/uL Basophils # (0-0.4) x10^3/uL Sodium 135 L (137-145) mmol/L Potassium 4.4 (3.5-5.1) mmol/L Chloride 101 (98-107) mmol/L Carbon Dioxide 27 (22-30) mmol/L Anion Gap 12.3 (5-15) MEQ/L BUN 22 H (9-20) mg/dL Creatinine 0.81 (0.66-1.25) mg/dL Estimated GFR 91.4 ML/MIN Glucose 113 H (74-106) mg/dL Lactic Acid 0.9 (0.4-2.0) Calcium 9.4 (8.4-10.2) mg/dL Total Bilirubin 0.50 (0.2-1.3) mg/dL AST 31 (17-59) U/L ALT 33 (0-50) U/L Alkaline Phosphatase 146 H (38-126) U/L Serum Total Protein 6.7 (6.3-8.2) g/dL Albumin 3.8 (3.5-5.0) g/dL Amylase 137 H (30-110) U/L Lipase 506 H (23-300) U/L Urine Color Yellow (Yellow) Urine Appearance Cloudy A (Clear) Urine pH 6.5 (4.6-8.0) Ur Specific [place] 1.015 (1.005-1.030) Urine Protein Trace A (Negative) Urine Glucose (UA) Negative (Negative) mg/dL Urine Ketones Negative (Negative) Urine Blood NHT (Negative) Urine Nitrite Positive A (Negative) Urine Bilirubin Negative (Negative) Urine Urobilinogen 0.2 (0.2) mg/dL Ur Leukocyte Esterase Large A (Negative) U Hyaline Cast (Auto) NONE SEEN (0-2) /LPF Urine Microscopic RBC 0-2 (0-5) /HPF Urine Microscopic WBC >100 A (0-5) /HPF Ur Epithelial Cells None Seen (None Seen) /HPF Urine Bacteria Few A (None Seen) /HPF Urine Culture Reflexed ORDERED SEPARATELY (NO) 01/25/23 Range/Units 19:01 WBC 7.6 (4.0-10.5) x10^3/uL RBC 4.76 (4.1-5.6) x10^6/uL Hgb 13.6 (12.5-18.0) g/dL Hct 42.5 (42-50) % MCV 89.3 (78-100) fL MCH 28.6 (26-32) pg MCHC 32.0 (32-36) g/dL RDW 14.4 H (11.5-14.0) % Plt Count 216 (150-450) x10^3/uL MPV 9.0 (7.5-11.0) fL Gran % 62.1 (36.0-66.0) % Immature Gran % (Auto) 0.7 H (0.00-0.4) % Nucleat RBC Rel Count 0.0 (0.00-0.1) % Eos # (Auto) 0.15 (0-0.5) x10^3/uL Immature Gran # (Auto) 0.05 H (0.00-0.03) x10^3u/L Absolute Lymphs (auto) 2.00 (1.0-4.6) x10^3/uL Absolute Monos (auto) 0.63 (0.0-1.3) x10^3/uL Absolute Nucleated RBC 0.00 (0.00-0.01) x10^3u/L Lymphocytes % 26.5 (24.0-44.0) % Monocytes % 8.3 (0.0-12.0) % Eosinophils % 2.0 (0.00-5.0) % Basophils % 0.4 (0.0-0.4) % Absolute Granulocytes 4.70 (1.4-6.9) x10^3/uL Basophils # 0.03 (0-0.4) x10^3/uL Sodium (137-145) mmol/L Potassium (3.5-5.1) mmol/L Chloride (98-107) mmol/L Carbon Dioxide (22-30) mmol/L Anion Gap (5-15) MEQ/L BUN (9-20) mg/dL Creatinine (0.66-1.25) mg/dL Estimated GFR ML/MIN Glucose (74-106) mg/dL Lactic Acid (0.4-2.0) Calcium (8.4-10.2) mg/dL Total Bilirubin (0.2-1.3) mg/dL AST (17-59) U/L ALT (0-50) U/L Alkaline Phosphatase (38-126) U/L Serum Total Protein (6.3-8.2) g/dL Albumin (3.5-5.0) g/dL Amylase (30-110) U/L Lipase (23-300) U/L Urine Color (Yellow) Urine Appearance (Clear) Urine pH (4.6-8.0) Ur Specific [place] (1.005-1.030) Urine Protein (Negative) Urine Glucose (UA) (Negative) mg/dL Urine Ketones (Negative) Urine Blood (Negative) Urine Nitrite (Negative) Urine Bilirubin (Negative) Urine Urobilinogen (0.2) mg/dL Ur Leukocyte Esterase (Negative) U Hyaline Cast (Auto) (0-2) /LPF Urine Microscopic RBC (0-5) /HPF Urine Microscopic WBC (0-5) /HPF Ur Epithelial Cells (None Seen) /HPF Urine Bacteria (None Seen) /HPF Urine Culture Reflexed (NO) - Progress Progress: improved, re-examined Progress Note: 01/25/23 20:35 This patient's medical issue is 1 of moderate complexity. Level complex in the work-up performed is based on review of the patient's past medical history, review the patient's medication list, review the patient's drug allergy list, history of present illness and physical findings on examination. The work-up in this patient includes placement of intravenous line, infusion of normal saline solution, infusion of 2 mg intravenous morphine and 4 mg intravenous Zofran, CBC, CMP, urinalysis, amylase, lipase, CT scan of the abdomen pelvis with reconstruction of lumbar spine. Independent, additional medical history was obtained from the patient's spouse. 01/25/23 21:11 CT scan of the abdomen pelvis when compared to that study which was done on 12/07/2022, there is moderate diffuse fecal stasis. There is old left femur fracture and there is a presence of a sacral decubitus ulcer. Otherwise there is no significant change. CT scan reconstruction of the lumbar spine states that there is beam artifact from the thoracic fusion hardware which limits the exam. There is no new or acute findings present. I reviewed the labs that have returned thus far, patient has very mildly elevated pancreas enzymes. When I compared these findings with old amylase and lipase levels, they are actually slightly lower than prior lab studies over the course of a couple of years. Counseled pt/family regarding: lab results, diagnosis, need for follow-up, rad results Medical Desision Making - Diagnostic Testing Diagnostic test were ordered, analyzed, and reviewed by me: Yes Radiological Interpretation: Reviewed by me, Teleradiologist Report - Risk of complications The pt has a mod risk of morbidity or mortality based on: Need for prescription drug management - Departure Departure Disposition: Home Clinical Impression: UTI (urinary tract infection) Condition: Stable Critical Care Time: No Referrals: JOSI MAURER MD [Primary Care Provider] - Follow up/PCP as directed Additional Instructions: Drink plenty of fluids. Take your medication as prescribed. Follow-up with your outpatient appointment that you already have scheduled for further evaluation and management. Prescriptions: Cefdinir 300 mg PO BID #14 cap
[2023-01-25] MEDS ORDERED: Sodium Chloride 0.9% 1000 ML 1,000 ML IV SCH (19:15)
[2023-01-25 19:21] LABS: BASOPHIL % 0.4 % (0.0-0.4); Basophil (Absolute #) 0.03 x10^3/uL (0-0.4); Eosinophil (Absolute #) 0.15 x10^3/uL (0-0.5); Hematocrit 42.5 % (42-50); Hemoglobin 13.6 g/dL (12.5-18.0); IMMATURE GRAN # 0.05 x10^3u/L (0.00-0.03); IMMATURE GRAN % 0.7 % (0.00-0.4); Lymphocytes % 26.5 % (24.0-44.0); Mean Cell Volume 89.3 fL (78-100); Mean Corpuscular Hemoglobin 28.6 pg (26-32); Monocyte (Absolute #) 0.63 x10^3/uL (0.0-1.3); Monocytes % 8.3 % (0.0-12.0); Neutrophil % 62.1 % (36.0-66.0); Platelet Count 216 x10^3/uL (150-450); Red Blood Count 4.76 x10^6/uL (4.1-5.6); Red Cell Distribution Width 14.4 % (11.5-14.0); White Blood Count 7.6 x10^3/uL (4.0-10.5)
[2023-01-25 19:35] LABS: ALBUMIN 3.8 g/dL (3.5-5.0); ANION GAP 12.3 MEQ/L (5-15); BILIRUBIN,TOTAL 0.5 mg/dL (0.2-1.3); Calcium 9.4 mg/dL (8.4-10.2); Creatinine 1 0.81 mg/dL (0.66-1.25); EST GLOMERULAR FILTRATION RATE 91.4 ML/MIN; Potassium 4.4 mmol/L (3.5-5.1); Total Protein 6.7 g/dL (6.3-8.2)
[2023-01-25] MEDS ORDERED: Sodium Chloride 0.9% 1000 ML 1,000 ML ONE (20:03)
[2023-01-25] MEDS ORDERED: Zofran 4 MG/2 ML VIAL IV ONE (20:25)
[2023-01-25] MEDS ORDERED: MORPHINE SULFATE 2 MG INJ IV ONE (20:25)
[2023-01-25] MEDS ORDERED: MORPHINE SULFATE 2 MG INJ ONE (20:36)
[2023-01-25] MEDS ORDERED: Zofran 4 MG/2 ML VIAL ONE (20:36)
[2023-01-25 21:13] LABS: ADD URINE CULTURE? ORDERED SEPARATELY (NO); Appearance Cloudy (Clear); Bacteria Few /HPF (None Seen); Bilirubin Negative (Negative); Blood NHT (Negative); Epithelial Cells None Seen /HPF (None Seen); Glucose, Urine Negative (Negative); Hyaline Casts NONE SEEN /LPF (0-2); Ketones Negative (Negative); Leukocyte Esterase Large (Negative); Nitrite Positive (Negative); Ph 6.5 (4.6-8.0); Protein,Urine Dip Trace (Negative); RBC 0-2 /HPF (0-5); Specific Gravity 1.015 (1.005-1.030); Urobilinogen 0.2 mg/dL (0.2); WBC >100 /HPF (0-5)
[2023-01-25] MEDS ORDERED: ROCEPHIN 1 Gm-D5w 50 ml Bag** 1 G/50 ML IVPB IV STA (21:18)
[2023-01-25] MEDS ORDERED: ROCEPHIN 1 Gm-D5w 50 ml Bag** 1 G/50 ML IVPB IV ONE (21:23)
[2023-01-25 22:08] VITALS: PULSE 51; RESP 18; O2SAT 96
[2023-01-25 22:40] VITALS: BP 173/73
--- NOTE | 2023-01-26 08:40 | XRAY ---
Indication: Abdomen/back pain. Multiple contiguous axial images obtained through the abdomen pelvis without contrast. Comparison: December 07, 2012 Again beam artifact from multilevel bilateral thoracic spinal fusion hardware. Lung bases grossly clear. Heart not enlarged. Noncontrasted stomach and bowel loops appear nonobstructed. Stable left mid abdomen colostomy. Worsening moderate diffuse scattered colonic fecal debris throughout. Moderately distended urinary bladder again demonstrates mild segmental wall thickening, probable chronic cystitis. Again cholecystomy. No free fluid/air. Remaining liver, pancreas, spleen, adrenal glands, kidneys, and ureters are unremarkable for noncontrast exam. Again mild scattered aortoiliac calcifications without AAA. Osseous structures intact again with osteopenia, moderate/advanced multilevel degenerative spondylosis, moderate degenerative changes both hips, and old nonunited/comminuted proximal left femur fracture. Grossly stable appearing sacral decubitus ulcer with presumed bandage packing. Impression: 1. Again beam artifact from spinal fusion hardware. 2. Worsening diffuse fecal stasis. 3. Again urinary bladder wall thickening favoring chronic cystitis. 4. Grosses stable sacral decubitus ulcer. 5. Chronic findings including arteriosclerotic disease and chronic bony findings.
--- NOTE | 2023-01-26 08:44 | XRAY ---
Indication: Abdomen/back pain. Sagittal, coronal, and axial reformatted images lumbar spine obtained using raw data from same day CT abdomen/pelvis exam. Comparison: December 07, 2022 Again beam artifact from multilevel bilateral thoracic spinal fusion hardware. Osseous structures intact again with osteopenia and moderate/advanced multilevel degenerative spondylosis including L2-L3/L4-L5 vacuum disc phenomena. No acute fracture, suspicious bony lesions, or spinal canal stenosis. Sagittal and coronal reformatted images demonstrates normal lumbar alignment. Stable superior L1 Schmorl node versus remote endplate fracture. No acute compression fracture or subluxation. CT abdomen/pelvis reported separately. Impression: Again chronic findings including osteopenia and multilevel degenerative changes. No new/acute abnormalities.
== END 2023-01-25 22:35 | disposition home or self-care (01) ==
LOC: ED 15:06
DX: N39.0 Urinary tract infection, site not specified (principal); M54.50 Low back pain, unspecified; G82.50 Quadriplegia, unspecified; E78.5 Hyperlipidemia, unspecified; I10 Essential (primary) hypertension; E11.9 Type 2 diabetes mellitus without complications; Z79.01 Long term (current) use of anticoagulants; Z79.899 Other long term (current) drug therapy; Z28.310 Unvaccinated for COVID-19
CPT/HCPCS: 36000; 36415; 74176; 76376; 80053; 81001; 82150; 83605; 83690; 85025; 87086; 96374; 96375; 99284; J0696; J2270; J2405

== ENCOUNTER 2023-03-16 13:51 | Emergency (ER) | payer MEDICARE, OTHER ==
[2023-03-16 14:14] VITALS: TEMP 97.8
[2023-03-16 14:51] LABS: Absolute Neutrophil Ct (ANC) 3.81 x10^3/uL (1.4-6.9); BASOPHIL % 0.5 % (0.0-0.4); Basophil (Absolute #) 0.03 x10^3/uL (0-0.4); Eosinophil % 2.7 % (0.00-5.0); Eosinophil (Absolute #) 0.16 x10^3/uL (0-0.5); Hematocrit 45.6 % (42-50); Hemoglobin 14.3 g/dL (12.5-18.0); IMMATURE GRAN # 0.04 x10^3u/L (0.00-0.03); IMMATURE GRAN % 0.7 % (0.00-0.4); Lymphocyte (Absolute #) 1.07 x10^3/uL (1.0-4.6); Lymphocytes % 18.2 % (24.0-44.0); Mean Cell Volume 89.2 fL (78-100); Mean Corpuscular Hgb Concent. 31.4 g/dL (32-36); Mean Platelet Volume 9.7 fL (7.5-11.0); Monocyte (Absolute #) 0.76 x10^3/uL (0.0-1.3); Monocytes % 12.9 % (0.0-12.0); Platelet Count 176 x10^3/uL (150-450); Red Blood Count 5.11 x10^6/uL (4.1-5.6); Red Cell Distribution Width 13.9 % (11.5-14.0); White Blood Count 5.9 x10^3/uL (4.0-10.5)
[2023-03-16 14:56] LABS: ADD URINE CULTURE? YES (NO); Appearance Cloudy (Clear); Bacteria Many /HPF (None Seen); Bilirubin Negative (Negative); Blood Small (Negative); Epithelial Cells None Seen /HPF (None Seen); Glucose, Urine Negative (Negative); Hyaline Casts NONE SEEN /LPF (0-2); Ketones Negative (Negative); Leukocyte Esterase Large (Negative); Nitrite Positive (Negative); Ph 6.5 (4.6-8.0); Protein,Urine Dip Negative (Negative); Specific Gravity 1.015 (1.005-1.030); WBC >100 /HPF (0-5)
[2023-03-16 15:03] LABS: ALBUMIN 3.9 g/dL (3.5-5.0); ANION GAP 10.8 MEQ/L (5-15); BILIRUBIN,TOTAL 0.6 mg/dL (0.2-1.3); Calcium 9.3 mg/dL (8.4-10.2); Creatinine 1 0.8 mg/dL (0.66-1.25); EST GLOMERULAR FILTRATION RATE 91.7 ML/MIN; Potassium 4.1 mmol/L (3.5-5.1); Total Protein 6.9 g/dL (6.3-8.2)
[2023-03-16 15:29] LABS: INFLUENZA A NEGATIVE (NEGATIVE); INFLUENZA B NEGATIVE (NEGATIVE); SARS-CoV-2 Xpert Express NEGATIVE (NEGATIVE)
--- NOTE | 2023-03-16 15:30 | XRAY ---
Indication: Abdomen pain. Multiple contiguous axial images obtained through the abdomen and pelvis without contrast. Comparison: January 25, 2023. Again beam artifact from multilevel bilateral thoracic spinal fusion hardware. Lung bases again grossly clear. Heart not enlarged. Noncontrasted stomach and bowel loops appear nonobstructed. Again left mid abdomen diverting colostomy with grossly stable moderate diffuse fecal stasis. Near empty urinary bladder demonstrates circumferential wall thickening presumed from incomplete distention. Again cholecystectomy. No free fluid/air. Remaining liver, pancreas, spleen, adrenal glands, kidneys, and ureters are unremarkable for noncontrast exam. Stable mild scattered aortoiliac calcifications without AAA. Osseous structures intact again with osteopenia, moderate advanced multilevel thoracolumbar degenerative spondylosis, moderate degenerative changes both hips, and old nonunited/comminuted proximal left femur fracture. Grossly stable appearing sacral decubitus ulcer. Query new bilateral gluteal decubitus ulcers at the level of the hips without focal fluid collection or subcutaneous emphysema. Impression: 1. Again beam artifact from spinal fusion hardware. 2. Again moderate diffuse fecal stasis, arteriosclerotic disease, and chronic bony findings. 3. Again sacral decubitus ulcer. New bilateral gluteal decubitus ulcers. 4. Again chronic findings including arteriosclerotic disease and chronic bony findings.
[2023-03-16 15:34] LABS: RESPIRATORY SYNCTIAL VIRUS POSITIVE (NEGATIVE)
[2023-03-16] MEDS ORDERED: Levofloxacin 500MG/100ML D5W 500 MG/100 ML BAG IV STA (16:14)
--- NOTE | 2023-03-16 16:17 | ERPHSYRPT ---
- History of Present Illness Time Seen by Provider: 03/16/23 14:15 Source: patient Exam Limitations: no limitations Patient Subjective Stated Complaint: Abdominal pain Triage Nursing Assessment: Patient brought back to ED per motorized w/c and river sferred to bed with assist of 2. Patient A+O X 3. Patient's skin pink, warm and dry. Patient complains of abdominal pain and back pain 8/10 for a month or so. Patient straight caths for Urine. Patient complains of intermittent productive cough with thick green sputum. Lungs clear a/p mingo. Physician History: Patient is a 77-year-old male paraplegic with a indwelling Dinero catheter and a colostomy presents to our ED for evaluation of lower abdominal pain that has been ongoing for approximately 1 month. Pain rated 8 out of 10. No trauma no fever. No nausea vomiting or diaphoresis. Patient catheterizes himself at home. Patient also complains of an intermittent productive cough. Symptoms are mild to moderate in intensity. Palpation to the suprapubic region reproduces pain. at bedside. They otherwise voices no other complaints or concerns at this time. Portions of this note were created with voice recognition technology. There may be grammatical, spelling, punctuation or sound alike errors Timing/Duration: today Severity: moderate Modifying Factors: Improves With: nothing Associated Symptoms: denies symptoms Allergies/Adverse Reactions: No Known Drug Allergies Allergy (Verified 03/16/23 14:04) Home Medications: Testosterone Cypionate 200 mg IM UD 05/18/16 [History] Venlafaxine HCl [Effexor Xr] 150 mg PO DINNER 05/18/16 [History] Multivitamin [Multivitamins] 1 each PO QAM 06/19/16 [History] Docusate Sodium [Stool Softener] 250 mg PO TID 01/11/17 [History] Atorvastatin Calcium [Lipitor] 40 mg PO DINNER 01/18/17 [History] Isosorbide Mononitrate [Isosorbide Mononitrate ER] 60 mg PO LUNCH 01/18/17 [History] Ranolazine 500 MG [Ranexa 500 MG] 500 mg PO BID 01/18/17 [History] Bisacodyl 10 mg [Dulcolax 10 MG SUPP] 10 mg RC DAILY PRN PRN 10/09/18 [History] L.acidoph,Paracasei, B.lactis [Probiotic] 1 each PO DINNER 10/09/18 [History] Naloxegol Oxalate [Movantik] 25 mg PO QAM 10/09/18 [History] lamoTRIgine [Lamotrigine] 200 mg PO DAILY 10/09/18 [History] Aspirin [Aspirin EC] 81 mg PO QAM 01/06/19 [History] Clopidogrel Bisulfate [PLAVIX Tablet] 75 mg PO LUNCH 01/06/19 [History] Trazodone HCl 50 mg [Desyrel 50 mg] 50 mg PO HS 04/03/19 [History] Amlodipine Besylate 5 mg [Norvasc 5 mg] 5 mg PO DAILY 03/26/20 [History] Gabapentin [Gralise] 600 mg PO QAM 05/15/20 [History] Gabapentin [Gralise] 1,800 mg PO DINNER 02/16/21 [History] Nitroglycerin 0.4 mg SL UD 05/06/21 [History] Tapentadol HCl [Nucynta] 0.5 - 1 tab PO Q4-6HPRN PRN 06/23/22 [History] Hx Tetanus, Diphtheria Vaccination/Date Given: No Hx Influenza Vaccination/Date Given: No Hx Pneumococcal Vaccination/Date Given: No Immunizations Up to Date: Yes Travel Risk - International Travel Have you traveled outside of the country in past 3 weeks: No - Coronavirus Screening Are you exhibiting any of the following symptoms?: No Close contact with a COVID-19 positive Pt in past 14-21 Days: No - Vaccine Status Have you recieved a Covid-19 vaccination: No - Review of Systems Constitutional: No Symptoms, No Fever, No Chills Eyes: No Symptoms Ears, Nose, & Throat: No Symptoms Respiratory: No Symptoms, No Cough, No Dyspnea Cardiac: No Symptoms, No Chest Pain, No Edema, No Syncope Abdominal/Gastrointestinal: Constipation, No Abdominal Pain, No Nausea, No Vomiting, No Diarrhea Genitourinary Symptoms: No Symptoms, No Dysuria Musculoskeletal: No Symptoms, No Back Pain, No Neck Pain Skin: No Symptoms, No Rash Neurological: No Symptoms, No Dizziness, No Focal Weakness, No Sensory Changes Psychological: No Symptoms Endocrine: No Symptoms Hematologic/Lymphatic: No Symptoms Immunological/Allergic: No Symptoms All Other Systems: Reviewed and Negative - Past Medical History Pertinent Past Medical History: Yes Neurological History: Other ENT History: Cataracts Cardiac History: Coronary Artery Disease, High Cholesterol, Hypertension, Other Respiratory History: Sleep Apnea Endocrine Medical History: Diabetes Type II Musculoskeletal History: Arthritis GI Medical History: Colorectal Cancer, GI Bleed History: No Pertinent History Psycho-Social History: No Pertinent History Male Reproductive Disorders: No Pertinent History Other Medical History: Cardiac stents. Spinal cord injury 2010, quadraplegia. Hx of cervical fx, unable to recall date. watching carotids- scanned apr 2021. pressure wound to bottom- healing and being treated - Past Surgical History Past Surgical History: Yes Neuro Surgical History: No Pertinent History Cardiac: CABG, Cardiac Catheterization, Cardiac Stent Respiratory: No Pertinent History Gastrointestinal: Appendectomy, Cholecystectomy, Colon Resection Genitourinary: Other Musculoskeletal: Orthopedic Surgery Male Surgical History: No Pertinent History Other Surgical History: BACK reconstruction quadrapalegic t3-T7. Left leg operation times 3, COLON CA AND RESECTION IN JAN, 2016, CABG 2015, fall 2011, wound on buttock cultured pos. suprapubic cath attempted only- unsuccessful - Social History Smoking Status: Unknown if ever smoked How long have you smoked: 40 years Exposure to second hand smoke: No Alcohol Use: None Drug Use: none Patient Lives Alone: No Significant Family History: heart disease, diabetes - Nursing Vital Signs Nursing Vital Signs: Initial Vital Signs Temperature 97.8 F 03/16/23 14:05 Pulse Rate 70 03/16/23 14:05 Respiratory Rate 20 03/16/23 14:05 Blood Pressure 173/75 03/16/23 14:05 O2 Sat by Pulse Oximetry 96 03/16/23 14:05 Pain Scale Pain Intensity 7 - Physical Exam General Appearance: no apparent distress, alert Eye Exam: PERRL/EOMI, eyes nml inspection Ears, Nose, Throat Exam: moist mucous membranes Neck Exam: normal inspection, non-tender, supple, full range of motion Respiratory Exam: normal breath sounds, lungs clear, airway intact, other (Intermittent cough), No respiratory distress Cardiovascular Exam: regular rate/rhythm, normal heart sounds, normal peripheral pulses Gastrointestinal/Abdomen Exam: soft, normal bowel sounds, other (Lower abdominal pain, colostomy indwelling Dinero catheter), No tenderness, No mass Back Exam: normal inspection, normal range of motion, No CVA tenderness, No vertebral tenderness Extremity Exam: normal inspection, normal range of motion, pelvis stable, other (Atrophy lower extremities/paraplegic) Neurologic Exam: alert, oriented x 3, cooperative, normal mood/affect, sensation nml, other (Patient gets around using a motorized wheelchair), No motor deficits Skin Exam: normal color, warm, dry, No rash Lymphatic Exam: No adenopathy SpO2 Interpretation: normal SpO2: 93 O2 Delivery: Room Air - Course Nursing assessment & vital signs reviewed: Yes - CT Exams Abdomen/Pelvis CT Interpretation: Tele-radiologist Report (Diffuse fecal stasis, old femur fracture, thoracolumbar arthritis, sacral decubiti, atherosclerosis, bilateral gluteal decubiti) Ordered Tests: Active Orders 24 hr Category Date Time Status Element Winding Machine Tender STAT Care 03/16/23 14:12 Active IV Insertion STAT Care 03/16/23 14:11 Active Pulse Oximetry (ED) STAT Care 03/16/23 14:11 Active ABDOMEN AND PELVIS W/0 CONTRAS [CT] Stat Exams 03/16/23 14:12 Completed BLOOD CULTURE Stat Lab 03/16/23 14:40 Ordered CBC W DIFF Stat Lab 03/16/23 14:30 Completed CMP Stat Lab 03/16/23 14:30 Completed CULTURE,URINE Stat Lab 03/16/23 14:35 Received Lactic Acid Stat Lab 03/16/23 14:30 Completed UA W/RFX UR CULTURE Stat Lab 03/16/23 14:35 Completed Medication Summary Generic Name Dose Route Start Last Admin Trade Name Freq PRN Reason Stop Dose Admin Levofloxacin/Dextrose 500 mg in 100 mls @ 100 mls/hr 03/16/23 16:14 Levofloxacin 500mg/100ml D5w IV 03/16/23 17:13 STAT STA Lab/Rad Data: Laboratory Result Diagrams 03/16/23 14:30 03/16/23 14:30 Laboratory Results 03/16/23 03/16/23 03/16/23 Range/Units 14:40 14:35 14:30 WBC (4.0-10.5) x10^3/uL RBC (4.1-5.6) x10^6/uL Hgb (12.5-18.0) g/dL Hct (42-50) % MCV (78-100) fL MCH (26-32) pg MCHC (32-36) g/dL RDW (11.5-14.0) % Plt Count (150-450) x10^3/uL MPV (7.5-11.0) fL Gran % (36.0-66.0) % Immature Gran % (Auto) (0.00-0.4) % Nucleat RBC Rel Count (0.00-0.1) % Eos # (Auto) (0-0.5) x10^3/uL Immature Gran # (Auto) (0.00-0.03) x10^3u/L Absolute Lymphs (auto) (1.0-4.6) x10^3/uL Absolute Monos (auto) (0.0-1.3) x10^3/uL Absolute Nucleated RBC (0.00-0.01) x10^3u/L Lymphocytes % (24.0-44.0) % Monocytes % (0.0-12.0) % Eosinophils % (0.00-5.0) % Basophils % (0.0-0.4) % Absolute Granulocytes (1.4-6.9) x10^3/uL Basophils # (0-0.4) x10^3/uL Sodium 132 L (137-145) mmol/L Potassium 4.1 (3.5-5.1) mmol/L Chloride 100 (98-107) mmol/L Carbon Dioxide 26 (22-30) mmol/L Anion Gap 10.8 (5-15) MEQ/L BUN 17 (9-20) mg/dL Creatinine 0.80 (0.66-1.25) mg/dL Estimated GFR 91.7 ML/MIN Glucose 131 H (74-106) mg/dL Lactic Acid (0.4-2.0) Calcium 9.3 (8.4-10.2) mg/dL Total Bilirubin 0.60 (0.2-1.3) mg/dL AST 129 H (17-59) U/L ALT 118 H (0-50) U/L Alkaline Phosphatase 255 H (38-126) U/L Serum Total Protein 6.9 (6.3-8.2) g/dL Albumin 3.9 (3.5-5.0) g/dL Urine Color Yellow (Yellow) Urine Appearance Cloudy A (Clear) Urine pH 6.5 (4.6-8.0) Ur Specific [place] 1.015 (1.005-1.030) Urine Protein Negative (Negative) Urine Glucose (UA) Negative (Negative) mg/dL Urine Ketones Negative (Negative) Urine Blood Small A (Negative) Urine Nitrite Positive A (Negative) Urine Bilirubin Negative (Negative) Urine Urobilinogen 1.0 A (0.2) mg/dL Ur Leukocyte Esterase Large A (Negative) U Hyaline Cast (Auto) NONE SEEN (0-2) /LPF Urine Microscopic RBC 3-5 (0-5) /HPF Urine Microscopic WBC >100 A (0-5) /HPF Ur Epithelial Cells None Seen (None Seen) /HPF Urine Bacteria Many A (None Seen) /HPF Urine Culture Reflexed YES (NO) Influenza Type A Ag NEGATIVE (NEGATIVE) Influenza Type B Ag NEGATIVE (NEGATIVE) RSV (PCR) POSITIVE (NEGATIVE) SARS-CoV-2 (PCR) NEGATIVE (NEGATIVE) 03/16/23 03/16/23 Range/Units 14:30 14:30 WBC 5.9 (4.0-10.5) x10^3/uL RBC 5.11 (4.1-5.6) x10^6/uL Hgb 14.3 (12.5-18.0) g/dL Hct 45.6 (42-50) % MCV 89.2 (78-100) fL MCH 28.0 (26-32) pg MCHC 31.4 L (32-36) g/dL RDW 13.9 (11.5-14.0) % Plt Count 176 (150-450) x10^3/uL MPV 9.7 (7.5-11.0) fL Gran % 65.0 (36.0-66.0) % Immature Gran % (Auto) 0.7 H (0.00-0.4) % Nucleat RBC Rel Count 0.0 (0.00-0.1) % Eos # (Auto) 0.16 (0-0.5) x10^3/uL Immature Gran # (Auto) 0.04 H (0.00-0.03) x10^3u/L Absolute Lymphs (auto) 1.07 (1.0-4.6) x10^3/uL Absolute Monos (auto) 0.76 (0.0-1.3) x10^3/uL Absolute Nucleated RBC 0.00 (0.00-0.01) x10^3u/L Lymphocytes % 18.2 L (24.0-44.0) % Monocytes % 12.9 H (0.0-12.0) % Eosinophils % 2.7 (0.00-5.0) % Basophils % 0.5 (0.0-0.4) % Absolute Granulocytes 3.81 (1.4-6.9) x10^3/uL Basophils # 0.03 (0-0.4) x10^3/uL Sodium (137-145) mmol/L Potassium (3.5-5.1) mmol/L Chloride (98-107) mmol/L Carbon Dioxide (22-30) mmol/L Anion Gap (5-15) MEQ/L BUN (9-20) mg/dL Creatinine (0.66-1.25) mg/dL Estimated GFR ML/MIN Glucose (74-106) mg/dL Lactic Acid 1.1 (0.4-2.0) Calcium (8.4-10.2) mg/dL Total Bilirubin (0.2-1.3) mg/dL AST (17-59) U/L ALT (0-50) U/L Alkaline Phosphatase (38-126) U/L Serum Total Protein (6.3-8.2) g/dL Albumin (3.5-5.0) g/dL Urine Color (Yellow) Urine Appearance (Clear) Urine pH (4.6-8.0) Ur Specific [place] (1.005-1.030) Urine Protein (Negative) Urine Glucose (UA) (Negative) mg/dL Urine Ketones (Negative) Urine Blood (Negative) Urine Nitrite (Negative) Urine Bilirubin (Negative) Urine Urobilinogen (0.2) mg/dL Ur Leukocyte Esterase (Negative) U Hyaline Cast (Auto) (0-2) /LPF Urine Microscopic RBC (0-5) /HPF Urine Microscopic WBC (0-5) /HPF Ur Epithelial Cells (None Seen) /HPF Urine Bacteria (None Seen) /HPF Urine Culture Reflexed (NO) Influenza Type A Ag (NEGATIVE) Influenza Type B Ag (NEGATIVE) RSV (PCR) (NEGATIVE) SARS-CoV-2 (PCR) (NEGATIVE) - Progress Progress: improved Progress Note: Patient is a 77-year-old male history of paraplegia presents to our ED with lower abdominal pain. Physical exam reveals some lower abdominal tenderness. Patient has a colostomy and indwelling Dinero catheter. Patient self catheterizes at home. Workup reveals urinary tract infection. Patient received an IV dose of Levaquin. A prescription for ciprofloxacin forwarded to patient's pharmacy. Patient is RSV positive which explains patient's cough. No indication for antibiotics at this time. No leukocytosis no fever. No hypoxia. Lungs are clear on physical exam. CT scan reveals diffuse fecal stasis. Patient has a known sacral decubiti. He now has 2 new gluteal decubiti. Atherosclerotic disease observed on CAT scan as well as an old femur fracture. He also has some thoracolumbar arthritis. Pain medication declined. Will discharge home. Patient will need follow-up with his primary care doctor regarding the transaminitis. AST is 129 ALT is 118. Alkaline phos also elevated at 255. Patient states he is ready for discharge. at bedside. They voiced no other complaints or concerns at this time. Portions of this note were created with voice recognition technology. There may be grammatical, spelling, punctuation or sound alike errors Complexity of problem addressed is moderate acute complicated No critical care time Complex of data reviewed and analyzed is moderate. Test ordered test reviewed. Results analyzed and correlated clinically with history and physical examination. Risk of complication and or risk of morbidity/mortality patient management is moderate. A prescription for ciprofloxacin was forwarded to patient's pharmacy. Vital stable. Time spent to discharge patient is approximately 15 minutes. Plan of care established for shared decision making. No social determinants of health present impede follow-up. Portions of this note were created with voice recognition technology. There may be grammatical, spelling, punctuation or sound alike errors . 03/16/23 16:28 03/16/23 16:31 Counseled pt/family regarding: lab results, diagnosis, need for follow-up, rad results - Departure Departure Disposition: Home Clinical Impression: UTI (urinary tract infection), Transaminitis, Atherosclerosis, RSV infection, diffuse fecal stasis, Thoracolumbar arthritis, Bilateral gluteal decubiti, Sacral decubitus ulcer, Cough Condition: Stable Critical Care Time: No Referrals: JOSI MAURER MD [Primary Care Provider] - Follow up/PCP as directed Additional Instructions: Discharge/Care Plan LAI GLASER was seen on 03/16/23 in the Emergency Room. The patient was counseled regarding Diagnosis,Lab results, Imaging studies, need for follow up and when to return to the Emergency Room. Prescriptions given: Discharge Note I have spoken with the patient and/or caregivers. I have explained the patient's condition, diagnosis and treatment plan based on the information available to me at this time. I have answered the patient's and/or caregiver's questions and addressed any concerns. The patient and/or caregivers have as good understanding of the patient's diagnosis, condition and treatment plan as can be expected at this point. The vital signs have been stable. The patient's condition is stable and appropriate for discharge from the emergency department. The patient will pursue further outpatient evaluation with the primary care physician or other designated or consulting physician as outlined in the discharge instructions. The patient and/or caregivers are agreeable to this plan of care and follow-up instructions have been explained in detail. The patient and/or caregivers have received these instruction. The patient/and or caregivers are aware that any significant change in condition or worsening of symptoms should prompt an immediate return to this or the closest emergency department or call 911. Prescriptions: Ciprofloxacin [Cipro 500 MG] 500 mg PO BID #14 tablet
[2023-03-16] MEDS ORDERED: Levofloxacin 500MG/100ML D5W 500 MG/100 ML BAG IV ONE (16:43)
[2023-03-16 17:20] VITALS: BP 171/108; PULSE 78; RESP 14; O2SAT 92
== END 2023-03-16 17:55 | disposition home or self-care (01) ==
LOC: ED 13:51
DX: N39.0 Urinary tract infection, site not specified (principal); J06.9 Acute upper respiratory infection, unspecified; B97.4 Respiratory syncytial virus as the cause of diseases classified elsewhere; R74.01 Elevation of levels of liver transaminase levels; I70.90 Unspecified atherosclerosis; K59.89 Other specified functional intestinal disorders; M47.815 Spondylosis without myelopathy or radiculopathy, thoracolumbar region; L89.320 Pressure ulcer of left buttock, unstageable; L89.319 Pressure ulcer of right buttock, unspecified stage; L89.159 Pressure ulcer of sacral region, unspecified stage; R05.1 Acute cough; G82.20 Paraplegia, unspecified; R10.30 Lower abdominal pain, unspecified; E78.5 Hyperlipidemia, unspecified; I10 Essential (primary) hypertension; E11.9 Type 2 diabetes mellitus without complications; Z79.02 Long term (current) use of antithrombotics/antiplatelets; Z79.899 Other long term (current) drug therapy; Z28.310 Unvaccinated for COVID-19
CPT/HCPCS: 0241U; 36000; 36415; 74176; 80053; 81001; 83605; 85025; 87040; 87077; 87086; 87186; 93041; 94760; 96365; 99284; J1956

== ENCOUNTER 2023-07-07 20:03 | Emergency (ER) | payer MEDICARE, OTHER ==
[2023-07-07] MEDS ORDERED: BACIGUENT 30 GM TOP ONE (20:04)
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
[2023-07-07 20:36] VITALS: TEMP 98.5
[2023-07-07] MEDS ORDERED: Sodium Chloride 0.9% 1000 ML 1,000 ML ONE (20:39)
[2023-07-07] MEDS: Sodium Chloride 0.9% 1000 ML 1,000 ML IV SCH (20:39)
[2023-07-07] MEDS: PIPERACILLIN/TAZOBACTAM 3.375 GM in Sodium Chloride 100ML MINI-BAG PLUS 100 ML IV ONE (20:40)
[2023-07-07] MEDS ORDERED: Sodium Chloride 100ML MINI-BAG PLUS 100 ML IV ONE (20:40)
[2023-07-07] MEDS ORDERED: PIPERACILLIN/TAZOBACTAM IV ONE (20:40)
[2023-07-07] MEDS: BACIGUENT 30 GM TP SCH (21:01)
[2023-07-07 21:24] VITALS: BP 147/73; PULSE 73; RESP 14; O2SAT 99
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
== END 2023-07-07 21:58 | disposition short-term general hospital (02) ==
LOC: ED 20:03
DX: T24.031A Burn of unspecified degree of right lower leg, initial encounter (principal); T24.112A Burn of first degree of left thigh, initial encounter; W19.XXXA Unspecified fall, initial encounter
CPT/HCPCS: 36000; 71100; 96365; 99284; A9270-GY

== ENCOUNTER 2023-12-13 17:51 | Emergency (ER) | payer MEDICARE, OTHER ==
[2023-12-13 18:57] VITALS: TEMP 97.7
--- NOTE | 2023-12-13 19:20 | ERPHSYRPT ---
- History of Present Illness Time Seen by Provider: 12/13/23 19:05 Historian: patient, family Exam Limitations: no limitations Patient Subjective Stated Complaint: abdominal pain Triage Nursing Assessment: patient states that he has been having abdominal pain for a few weeks. pain has increased today. patient is parapalegic due to work accident in 2011 and is now in a motorized wheelchair. patient usually self caths however presents with a pineda. patients says he has had pineda for 8 weeks due to UTI. Physician History: This is a 78-year-old white male patient who is a paraplegic secondary to a work accident in 2011 and who typically self catheterizes himself but has had a Pineda catheter in place for last 2 weeks secondary to recurrent UTIs. He presents with bilateral lower quadrant abdominal and bilateral flank 8 out of 10 dull achiness in a bandlike fashion anterior and posterior at approximately level of the umbilicus. Patient denies chest pain. Patient denies shortness of breath. He has no nausea vomiting or diarrhea symptoms. Patient has a history of coronary artery disease (stents and CABG), hyperlipidemia, hypertension, type 2 diabetes, arthritis, history of colon cancer status post colonic resection 2015. He has an ostomy in place. Timing/Duration: week(s) (2), worse Activities at Onset: none Quality: aching, dullness Abdominal Pain Onset Location: RLQ, LLQ, flank (Bilateral) Pain Radiation: no radiation Severity of Pain-Max: moderate Severity of Pain-Current: moderate Modifying Factors: Improves With: nothing Previous symptoms: no prior history, no recent treatment Allergies/Adverse Reactions: No Known Drug Allergies Allergy (Verified 12/13/23 18:57) Home Medications: Testosterone Cypionate 100 mg IM UD 05/18/16 [History] Venlafaxine HCl [Effexor Xr] 150 mg PO DINNER 05/18/16 [History] Atorvastatin Calcium [Lipitor] 40 mg PO DINNER 01/18/17 [History] Isosorbide Mononitrate [Isosorbide Mononitrate ER] 60 mg PO LUNCH 01/18/17 [History] Naloxegol Oxalate [Movantik] 25 mg PO QAM 10/09/18 [History] lamoTRIgine [Lamotrigine] 200 mg PO DAILY 10/09/18 [History] Aspirin [Aspirin EC] 81 mg PO QAM 01/06/19 [History] Clopidogrel Bisulfate [PLAVIX Tablet] 75 mg PO LUNCH 01/06/19 [History] Trazodone HCl 50 mg [Desyrel 50 mg] 50 mg PO HS 04/03/19 [History] Nitroglycerin 0.4 mg SL UD 05/06/21 [History] Tapentadol HCl [Nucynta] 0.5 - 1 tab PO Q4-6HPRN PRN 06/23/22 [History] Cephalexin Mh 250 mg [Keflex 250 mg] 1 tab PO DAILY 05/14/23 [History] Dicyclomine HCl 20 mg [Bentyl 20 mg] 20 mg PO QID 05/14/23 [History] Finasteride 5 mg [Proscar 5 MG] 5 mg PO HS 05/14/23 [History] Gabapentin [Gralise] 3 tab PO HS 05/14/23 [History] Gabapentin [Gralise] 600 mg PO DAILY 05/14/23 [History] Methenamine Hippurate 1 tab PO BID 05/14/23 [History] Sennosides/Docusate Sodium [Docusate Sodium-Sennosides Tab] 1 tab PO HS 05/14/23 [History] Lidocaine [Lidocaine Pain Relief] 1 each TP DAILY PRN 07/07/23 [History] Ranolazine 500 MG [Ranexa 500 MG] 500 mg PO BID 07/07/23 [History] Gabapentin [Gralise] 12/13/23 [History] Tapentadol HCl [Nucynta] 100 mg PO 12/13/23 [History] lamoTRIgine [Lamotrigine] 200 mg PO DAILY 12/13/23 [History] Hx Tetanus, Diphtheria Vaccination/Date Given: No Hx Influenza Vaccination/Date Given: No Hx Pneumococcal Vaccination/Date Given: No Travel Risk - International Travel Have you traveled outside of the country in past 3 weeks: No - Emerging Infectious Disease Are you exhibiting symptoms associated with any current EIDs: No Symptoms: Abdominal Pain - Review of Systems Constitutional: No Symptoms Eyes: No Symptoms Ears, Nose, & Throat: No Symptoms Respiratory: No Symptoms Cardiac: No Symptoms Abdominal/Gastrointestinal: Abdominal Pain (At the level of the umbilicus bandlike fashion dull achiness bilateral lower quadrants) Genitourinary Symptoms: Flank Pain (Bilateral flank pain dull achiness at the level of the umbilicus) Musculoskeletal: No Symptoms Neurological: No Symptoms Psychological: No Symptoms Endocrine: No Symptoms Hematologic/Lymphatic: No Symptoms Immunological/Allergic: No Symptoms All Other Systems: Reviewed and Negative - Past Medical History Pertinent Past Medical History: Yes Neurological History: Other ENT History: Cataracts Cardiac History: Coronary Artery Disease, High Cholesterol, Hypertension, Other Respiratory History: Sleep Apnea Endocrine Medical History: Diabetes Type II Musculoskeletal History: Arthritis GI Medical History: Colorectal Cancer, GI Bleed History: No Pertinent History Psycho-Social History: No Pertinent History Male Reproductive Disorders: No Pertinent History Other Medical History: Cardiac stents. Spinal cord injury 2010, paraplegia. Hx of cervical fx, unable to recall date. watching carotids- scanned apr 2021. pressure wound to bottom- healing and being treated - Past Surgical History Past Surgical History: Yes Neuro Surgical History: No Pertinent History Cardiac: CABG, Cardiac Catheterization, Cardiac Stent Respiratory: No Pertinent History Gastrointestinal: Appendectomy, Cholecystectomy, Colon Resection Genitourinary: Other Musculoskeletal: Orthopedic Surgery Male Surgical History: No Pertinent History Other Surgical History: BACK reconstruction quadrapalegic t3-T7. Left leg operation times 3, COLON CA AND RESECTION IN JAN, 2016, CABG 2015, fall 2011, wound on buttock cultured pos. suprapubic cath attempted only- unsuccessful Significant Family History: heart disease, diabetes - Social History Smoking Status: Former smoker How long have you smoked: 40 years Exposure to second hand smoke: No Alcohol Use: None Drug Use: none Patient Lives Alone: No - Social Determinants of Health Will the patient participate in the screening: Yes Do you worry about a steady place to live?: No In the past 12 months,have you had to go without utilities?: No Transportation Issues: No Has anyone in your support network made you feel unsafe?: No Have you or anyone in your house had to go without enough: No - Nursing Vital Signs Nursing Vital Signs: Initial Vital Signs Temperature 97.7 F 12/13/23 18:42 Pulse Rate 65 12/13/23 18:42 Respiratory Rate 16 12/13/23 18:42 Blood Pressure 188/88 12/13/23 18:42 O2 Sat by Pulse Oximetry 98 12/13/23 18:42 Pain Scale Pain Intensity 5 - Physical Exam General Appearance: no apparent distress, alert, anxiety, obese Eye Exam: PERRL/EOMI, eyes nml inspection Ears, Nose, Throat Exam: normal ENT inspection, moist mucous membranes Neck Exam: normal inspection, non-tender, supple, full range of motion Respiratory Exam: normal breath sounds, lungs clear, airway intact, No chest tenderness, No respiratory distress Cardiovascular Exam: regular rate/rhythm, normal heart sounds, normal peripheral pulses Gastrointestinal/Abdomen Exam: soft, normal bowel sounds, tenderness, guarding (Bilateral lower quadrant the level of the umbilicus to palpation), No rebound Rectal Exam: not done Back Exam: normal inspection, normal range of motion, vertebral tenderness, No CVA tenderness Extremity Exam: normal inspection (Patient is paraplegic), pelvis stable, paralysis (Chronic) Neurologic Exam: alert, oriented x 3, normal mood/affect Skin Exam: normal color, warm, dry Lymphatic Exam: No adenopathy SpO2 Interpretation: normal SpO2: 98 O2 Delivery: Room Air - Course Nursing assessment & vital signs reviewed: Yes Ordered Tests: Active Orders 24 hr Category Date Time Status Cath [Catheter-[place] Pineda] STAT Care 12/13/23 19:48 Active IV Insertion STAT Care 12/13/23 19:20 Active ABDOMEN AND PELVIS W/0 CONTRAS [CT] Stat Exams 12/13/23 19:21 Taken AMYLASE Stat Lab 12/13/23 19:20 Completed CBC W DIFF Stat Lab 12/13/23 19:20 Completed CMP Stat Lab 12/13/23 19:20 Completed CULTURE,URINE Stat Lab 12/13/23 20:30 Received LIPASE Stat Lab 12/13/23 19:20 Completed Lactic Acid Stat Lab 12/13/23 19:35 Completed UA W/RFX UR CULTURE Stat Lab 12/13/23 20:43 Completed Medication Summary Generic Name Dose Route Start Last Admin Trade Name Freq PRN Reason Stop Dose Admin Sodium Chloride 1,000 mls @ 100 mls/hr 12/13/23 19:30 12/13/23 19:33 Sodium Chloride 0.9% 1000 Ml IV 01/12/24 19:29 100 mls/hr .Q10H SHAI Administration Discontinued Medications Generic Name Dose Route Start Last Admin Trade Name Freq PRN Reason Stop Dose Admin Hydrocodone Bitart/Acetaminophen 2 tab 12/13/23 20:59 Hydrocodone/Apap 5/325 1 Tab Tablet PO 12/13/23 21:00 SENT HOME W/ PATIENT ONE Hydromorphone HCl 1 mg 12/13/23 19:20 12/13/23 19:33 Hydromorphone 1 Mg/1ml Inj IV 12/13/23 19:21 1 mg STAT ONE Administration Hydromorphone HCl Confirm 12/13/23 19:32 Hydromorphone 1 Mg/1ml Inj Administered 12/13/23 19:33 Dose 1 mg .ROUTE .STK-MED ONE Ondansetron HCl 4 mg 12/13/23 19:20 12/13/23 19:33 Ondansetron Hcl 4 Mg/2 Ml Vial IV 12/13/23 19:21 4 mg STAT ONE Administration Ondansetron HCl Confirm 12/13/23 19:32 Ondansetron Hcl 4 Mg/2 Ml Vial Administered 12/13/23 19:33 Dose 4 mg .ROUTE .STK-MED ONE Lab/Rad Data: Laboratory Result Diagrams 12/13/23 19:20 12/13/23 19:20 Laboratory Results 12/13/23 12/13/23 12/13/23 Range/Units 20:43 19:35 19:20 WBC (4.23-9.07) x10^3/uL RBC (4.63-6.08) x10^6/uL Hgb (13.7-17.5) g/dL Hct (40.1-51.0) % MCV (79.0-92.2) fL MCH (25.7-32.2) pg MCHC (32.3-36.5) g/dL RDW (11.6-14.4) % Plt Count (163-337) x10^3/uL MPV (9.4-12.4) fL Gran % (34.0-67.9) % Immature Gran % (Auto) (0.001-0.429) % Nucleat RBC Rel Count (0.00-0.2) % Eos # (Auto) (0.04-0.54) x10^3/uL Immature Gran # (Auto) (0.001-0.031) x10^3u/L Absolute Lymphs (auto) (1.32-3.57) x10^3/uL Absolute Monos (auto) (0.30-0.82) x10^3/uL Absolute Nucleated RBC (0.00-0.012) x10^3u/L Lymphocytes % (21.8-53.1) % Monocytes % (5.3-12.2) % Eosinophils % (0.8-7.0) % Basophils % (0.2-1.2) % Absolute Granulocytes (1.78-5.38) x10^3/uL Basophils # (0.01-0.08) x10^3/uL Sodium 138 (135-145) mmol/L Potassium 4.1 (3.5-5.1) mmol/L Chloride 103 (98-107) mmol/L Carbon Dioxide 27 (22-30) mmol/L Anion Gap 12.3 (5-15) MEQ/L BUN 15 (9-20) mg/dL Creatinine 0.85 (0.66-1.25) mg/dL Estimated GFR 89.5 ML/MIN Glucose 135 H (74-106) mg/dL Lactic Acid 1.4 (0.4-2.0) Calcium 9.7 (8.4-10.2) mg/dL Total Bilirubin 0.60 (0.2-1.3) mg/dL AST 33 (17-59) U/L ALT 41 (0-50) U/L Alkaline Phosphatase 123 (38-126) U/L Serum Total Protein 7.2 (6.3-8.2) g/dL Albumin 4.0 (3.5-5.0) g/dL Amylase 114 H (30-110) U/L Lipase 155 (23-300) U/L Urine Color Yellow (Yellow) Urine Appearance Clear (Clear) Urine pH 6.5 (4.6-8.0) Ur Specific Slaughters 1.025 (1.005-1.030) Urine Protein 100 A (Negative) Urine Glucose (UA) Negative (Negative) mg/dL Urine Ketones Negative (Negative) Urine Blood NHT (Negative) Urine Nitrite Negative (Negative) Urine Bilirubin Negative (Negative) Urine Urobilinogen 1.0 A (0.2) mg/dL Ur Leukocyte Esterase Moderate A (Negative) U Hyaline Cast (Auto) None Seen (0-2) /LPF Urine Microscopic RBC 0-2 (0-5) /HPF Urine Microscopic WBC 21-50 A (0-5) /HPF Ur Epithelial Cells Rare (None Seen) /HPF Urine Bacteria Rare A (None Seen) /HPF Urine Culture Reflexed YES (NO) 12/13/23 Range/Units 19:20 WBC 5.1 (4.23-9.07) x10^3/uL RBC 4.83 (4.63-6.08) x10^6/uL Hgb 12.5 L (13.7-17.5) g/dL Hct 39.6 L (40.1-51.0) % MCV 82.0 (79.0-92.2) fL MCH 25.9 (25.7-32.2) pg MCHC 31.6 L (32.3-36.5) g/dL RDW 15.5 H (11.6-14.4) % Plt Count 177 (163-337) x10^3/uL MPV 9.4 (9.4-12.4) fL Gran % 62.8 (34.0-67.9) % Immature Gran % (Auto) 0.4 (0.001-0.429) % Nucleat RBC Rel Count 0.0 (0.00-0.2) % Eos # (Auto) 0.09 (0.04-0.54) x10^3/uL Immature Gran # (Auto) 0.02 (0.001-0.031) x10^3u/L Absolute Lymphs (auto) 1.34 (1.32-3.57) x10^3/uL Absolute Monos (auto) 0.40 (0.30-0.82) x10^3/uL Absolute Nucleated RBC 0.00 (0.00-0.012) x10^3u/L Lymphocytes % 26.5 (21.8-53.1) % Monocytes % 7.9 (5.3-12.2) % Eosinophils % 1.8 (0.8-7.0) % Basophils % 0.6 (0.2-1.2) % Absolute Granulocytes 3.18 (1.78-5.38) x10^3/uL Basophils # 0.03 (0.01-0.08) x10^3/uL Sodium (135-145) mmol/L Potassium (3.5-5.1) mmol/L Chloride (98-107) mmol/L Carbon Dioxide (22-30) mmol/L Anion Gap (5-15) MEQ/L BUN (9-20) mg/dL Creatinine (0.66-1.25) mg/dL Estimated GFR ML/MIN Glucose (74-106) mg/dL Lactic Acid (0.4-2.0) Calcium (8.4-10.2) mg/dL Total Bilirubin (0.2-1.3) mg/dL AST (17-59) U/L ALT (0-50) U/L Alkaline Phosphatase (38-126) U/L Serum Total Protein (6.3-8.2) g/dL Albumin (3.5-5.0) g/dL Amylase (30-110) U/L Lipase (23-300) U/L Urine Color (Yellow) Urine Appearance (Clear) Urine pH (4.6-8.0) Ur Specific Slaughters (1.005-1.030) Urine Protein (Negative) Urine Glucose (UA) (Negative) mg/dL Urine Ketones (Negative) Urine Blood (Negative) Urine Nitrite (Negative) Urine Bilirubin (Negative) Urine Urobilinogen (0.2) mg/dL Ur Leukocyte Esterase (Negative) U Hyaline Cast (Auto) (0-2) /LPF Urine Microscopic RBC (0-5) /HPF Urine Microscopic WBC (0-5) /HPF Ur Epithelial Cells (None Seen) /HPF Urine Bacteria (None Seen) /HPF Urine Culture Reflexed (NO) - Progress Progress: improved, pain not gone completely, re-examined Progress Note: 12/13/23 19:29 Medical decision making and the assignment of moderate complexity to this patient's medical issue today is based on review of the patient's past medical history, review of the patient's medication list, reviewed patient drug allergy list, history present illness and physical findings on examination. The workup includes placement of intravenous line, infusion of low rate IV normal saline, CBC, CMP, amylase, lipase, catheterized urinalysis, CT scan of the abdomen pelvis without contrast, lactic acid level, infusion of intravenous Zofran and Dilaudid. Differential diagnosis includes but is not limited to muscle skeletal pain, colitis, diverticulitis, bowel obstruction, pancreatitis, perforated bowel 12/13/23 20:58 We are awaiting the urinalysis results. The remainder of his laboratory data results do not show any acute or emergent findings. CT scan of the abdomen pelvis without contrast was interpreted by radiologist and I reviewed the impression. There is no change when compared to the similar study dated 03/16/2023. There are no new/acute findings. 12/13/23 21:35 Patient has a urinary tract infection despite being on daptomycin and meropenem. We will provide him with a single dose of Levaquin 500 milligrams intravenously tonight. Patient is to call his primary care provider/prescriber tomorrow morning, 12/14/2023 to make arrangements for follow-up appointment and for further instructions and management regarding his pain control and his intravenous antibiotics. Counseled pt/family regarding: lab results, diagnosis, rad results Medical Desision Making - Independent Historian Additional History obtained from: Spouse - Risk of complications Low Risk: Low risk of morbidity from additional dx testing or treatment - Departure Departure Disposition: Home Clinical Impression: Abdominal pain, UTI (urinary tract infection) Condition: Stable Critical Care Time: No Referrals: [facility] [Primary Care Provider] - Follow up/PCP as directed Additional Instructions: Drink plenty of fluids. Take your medications as prescribed. Call your primary prescriber tomorrow morning, 12/14/2023, to make arrangements for follow-up appointment and for further instructions regarding outpatient pain control and outpatient antibiotics.
[2023-12-13] MEDS ORDERED: Zofran 4 MG/2 ML VIAL ONE (19:32)
[2023-12-13] MEDS ORDERED: Sodium Chloride 0.9% 1000 ML 1,000 ML ONE (19:32)
[2023-12-13] MEDS ORDERED: Hydromorphone 1 mg/ml Injection ONE (19:32)
[2023-12-13 19:33] LABS: Absolute Neutrophil Ct (ANC) 3.18 x10^3/uL (1.78-5.38); BASOPHIL % 0.6 % (0.2-1.2); Basophil (Absolute #) 0.03 x10^3/uL (0.01-0.08); Eosinophil % 1.8 % (0.8-7.0); Eosinophil (Absolute #) 0.09 x10^3/uL (0.04-0.54); Hematocrit 39.6 % (40.1-51.0); Hemoglobin 12.5 g/dL (13.7-17.5); IMMATURE GRAN # 0.02 x10^3u/L (0.001-0.031); IMMATURE GRAN % 0.4 % (0.001-0.429); Lymphocyte (Absolute #) 1.34 x10^3/uL (1.32-3.57); Lymphocytes % 26.5 % (21.8-53.1); Mean Corpuscular Hemoglobin 25.9 pg (25.7-32.2); Mean Corpuscular Hgb Concent. 31.6 g/dL (32.3-36.5); Mean Platelet Volume 9.4 fL (9.4-12.4); Monocytes % 7.9 % (5.3-12.2); Neutrophil % 62.8 % (34.0-67.9); Platelet Count 177 x10^3/uL (163-337); Red Blood Count 4.83 x10^6/uL (4.63-6.08); Red Cell Distribution Width 15.5 % (11.6-14.4); White Blood Count 5.1 x10^3/uL (4.23-9.07)
[2023-12-13] MEDS: Zofran 4 MG/2 ML VIAL IV ONE (19:33)
[2023-12-13] MEDS: Hydromorphone 1 mg/ml Injection IV ONE (19:33)
[2023-12-13] MEDS: Sodium Chloride 0.9% 1000 ML 1,000 ML IV SCH (19:33)
[2023-12-13 19:46] LABS: ANION GAP 12.3 MEQ/L (5-15); BILIRUBIN,TOTAL 0.6 mg/dL (0.2-1.3); Calcium 9.7 mg/dL (8.4-10.2); Creatinine 1 0.85 mg/dL (0.66-1.25); EST GLOMERULAR FILTRATION RATE 89.5 ML/MIN; Potassium 4.1 mmol/L (3.5-5.1); Total Protein 7.2 g/dL (6.3-8.2)
[2023-12-13 21:07] LABS: Appearance Clear (Clear); Bilirubin Negative (Negative); Blood NHT (Negative); Epithelial Cells Rare /HPF (None Seen); Glucose, Urine Negative (Negative); Ketones Negative (Negative); Leukocyte Esterase Moderate (Negative); Nitrite Negative (Negative); Ph 6.5 (4.6-8.0); Protein,Urine Dip 100 (Negative); Specific Gravity 1.025 (1.005-1.030); WBC 21-50 /HPF (0-5)
[2023-12-13 21:08] LABS: Bacteria Rare /HPF (None Seen); Hyaline Casts None Seen /LPF (0-2); RBC 0-2 /HPF (0-5)
[2023-12-13] MEDS ORDERED: Levofloxacin 500MG/100ML D5W 500 MG/100 ML BAG IV ONE (21:43)
[2023-12-13] MEDS: Levofloxacin 500MG/100ML D5W 500 MG/100 ML BAG IV STA (21:45)
[2023-12-13] MEDS ORDERED: NORCO 5/325 MG ONE (22:44)
[2023-12-13] MEDS: NORCO 5/325 MG PO ONE (22:45)
[2023-12-13 22:52] VITALS: BP 149/78; PULSE 60; RESP 16; O2SAT 96
--- NOTE | 2023-12-14 08:58 | XRAY ---
Indication: Bilateral flank pain. Multiple contiguous axial images obtained through the abdomen and pelvis without contrast. Comparison: March 16, 2023 Again beam artifact from multilevel bilateral thoracic fusion hardware. Lung bases demonstrates minimal scattered fibrosis/scarring. No focal infiltrate or effusion. Heart not enlarged again with scattered coronary calcifications. Noncontrasted stomach and bowel loops appear nonobstructed. Again mild diffuse scattered colonic fecal debris, left midabdomen colostomy, appendectomy, and cholecystectomy. Near empty urinary bladder demonstrates new Dinero balloon catheter in situ. No free fluid/air. Remaining liver, pancreas, spleen, adrenal glands, kidneys, ureters, and bladder are unremarkable for noncontrast exam. Osseous structures again demonstrates osteopenia, moderate/advanced multilevel thoracal lumbar degenerative spondylosis, moderate degenerative changes both hips, and old nonunited/comminuted possible left femur fracture. Grossly stable appearing sacral decubitus ulcer. Also grossly stable appearing lesser bilateral gluteal decubitus ulcers at the level of the hips. Impression: 1. Again beam artifact from spinal fusion hardware. 2. Continued mild diffuse fecal stasis. 3. Chronic findings including pulmonary fibrosis/scarring, arteriosclerotic disease, chronic bony findings, and sacral/gluteal decubitus ulcers.
== END 2023-12-13 23:02 | disposition home or self-care (01) ==
LOC: ED 17:51
DX: N39.0 Urinary tract infection, site not specified (principal); R10.9 Unspecified abdominal pain; G82.20 Paraplegia, unspecified; T14.8XXS Other injury of unspecified body region, sequela; E78.5 Hyperlipidemia, unspecified; I10 Essential (primary) hypertension; E11.9 Type 2 diabetes mellitus without complications; Z79.02 Long term (current) use of antithrombotics/antiplatelets; Z79.899 Other long term (current) drug therapy; Z99.3 Dependence on wheelchair
CPT/HCPCS: 36000; 36415; 51702; 74176; 80053; 81001; 82150; 83605; 83690; 85025; 87086; 96365; 96374; 96375; 99284; J1170; J1642; J1956; J2405; A9270-GY

== ENCOUNTER 2023-12-30 14:42 | Observation (INO) | payer MEDICARE, OTHER ==
[2023-12-30 15:59] LABS: Absolute Neutrophil Ct (ANC) 4.59 x10^3/uL (1.78-5.38); BASOPHIL % 0.6 % (0.2-1.2); Basophil (Absolute #) 0.04 x10^3/uL (0.01-0.08); Eosinophil % 0.7 % (0.8-7.0); Eosinophil (Absolute #) 0.05 x10^3/uL (0.04-0.54); Hematocrit 41.6 % (40.1-51.0); Hemoglobin 13.3 g/dL (13.7-17.5); IMMATURE GRAN # 0.02 x10^3u/L (0.001-0.031); IMMATURE GRAN % 0.3 % (0.001-0.429); Lymphocytes % 21.5 % (21.8-53.1); Mean Cell Volume 81.4 fL (79.0-92.2); Monocyte (Absolute #) 0.78 x10^3/uL (0.30-0.82); Monocytes % 11.2 % (5.3-12.2); Neutrophil % 65.7 % (34.0-67.9); Platelet Count 205 x10^3/uL (163-337); Red Blood Count 5.11 x10^6/uL (4.63-6.08)
--- NOTE | 2023-12-30 16:21 | ERPHSYRPT ---
- History of Present Illness Time Seen by Provider: 12/30/23 14:48 Source: patient, family Exam Limitations: clinical condition Patient Subjective Stated Complaint: Left sided abdominal pain Triage Nursing Assessment: [facility] Phys[facility] History: 78-year-old male with multiple medical problems including coronary artery di sease with CABG, hypertension, recurrent UTIs, colon cancer status post chemoradiation and permanent colostomy, decubitus ulcer with osteomyelitis of the lower back recently finished course of antibiotics is brought in the ER with complaints of increasing confusion, more sleepiness than usual since yesterday. Patient apparently fell out of bed few days ago and did hit his head against hardwood floor with no loss of consciousness. He is complaining of pain in the left flank/left lower quadrant and has reported decreased ostomy output. No cough fever or chills reported. Apparently patient is also hallucinating since yesterday. Not a good historian and history is limited, obtained from wif e/daughter. Patient is not in any distress Allergies/Adverse Reactions: No Known Drug Allergies Allergy (Verified 12/30/23 14:55) Home Medications: Testosterone Cypionate 100 mg IM UD 05/18/16 [History] Venlafaxine HCl [Effexor Xr] 150 mg PO DAILY 05/18/16 [History] Atorvastatin Calcium [Lipitor] 40 mg PO HS 01/18/17 [History] Isosorbide Mononitrate [Isosorbide Mononitrate ER] 60 mg PO DAILY 01/18/17 [History] Naloxegol Oxalate [Movantik] 25 mg PO QAM 10/09/18 [History] Aspirin [Aspirin EC] 81 mg PO EVENING MEAL 01/06/19 [History] Clopidogrel Bisulfate [PLAVIX Tablet] 75 mg PO DINNER 01/06/19 [History] Trazodone HCl 50 mg [Desyrel 50 mg] 50 mg PO HS 04/03/19 [History] Nitroglycerin 0.4 mg SL UD 05/06/21 [History] Cephalexin Mh 250 mg [Keflex 250 mg] 1 tab PO DAILY 05/14/23 [History] Dicyclomine HCl 20 mg [Bentyl 20 mg] 20 mg PO QID 05/14/23 [History] Finasteride 5 mg [Proscar 5 MG] 5 mg PO HS 05/14/23 [History] Gabapentin [Gralise] 1,800 mg PO EVENING MEAL 05/14/23 [History] Gabapentin [Gralise] 600 mg PO LUNCH 05/14/23 [History] Methenamine Hippurate 1 tab PO BID 05/14/23 [History] Sennosides/Docusate Sodium [Docusate Sodium-Sennosides Tab] 1 tab PO HS 05/14/23 [History] Lidocaine [Lidocaine Pain Relief] 1 each TP DAILY PRN 07/07/23 [History] Ranolazine 500 MG [Ranexa 500 MG] 500 mg PO BID 07/07/23 [History] Tapentadol HCl [Nucynta] 100 mg PO Q4-6HPRN PRN 12/13/23 [History] lamoTRIgine [Lamotrigine] 200 mg PO DAILY 12/13/23 [History] PANTOPRAZOLE 40 mg Tablet [Protonix 40MG Tablet] 40 mg PO DAILY 12/30/23 [History] Hx Tetanus, Diphtheria Vaccination/Date Given: No Hx Influenza Vaccination/Date Given: No Hx Pneumococcal Vaccination/Date Given: No Immunizations Up to Date: Yes Travel Risk - International Travel Have you traveled outside of the country in past 3 weeks: No - Emerging Infectious Disease Are you exhibiting symptoms associated with any current EIDs: No Symptoms: Abdominal Pain - Review of Systems Constitutional: Fatigue, Weakness Abdominal/Gastrointestinal: Abdominal Pain Musculoskeletal: Arthralgias, Back Pain Skin: Skin Lesions - Past Medical History Pertinent Past Medical History: Yes Neurological History: Other ENT History: Cataracts Cardiac History: Coronary Artery Disease, High Cholesterol, Hypertension, Other Respiratory History: Sleep Apnea Endocrine Medical History: Diabetes Type II Musculoskeletal History: Arthritis GI Medical History: Colorectal Cancer, GI Bleed History: No Pertinent History Psycho-Social History: No Pertinent History Male Reproductive Disorders: No Pertinent History Other Medical History: Cardiac stents. Spinal cord injury 2010, quadraplegia. Hx of cervical fx, unable to recall date. watching carotids- scanned apr 2021. pressure wound to bottom- healing and being treated - Past Surgical History Past Surgical History: Yes Neuro Surgical History: No Pertinent History Cardiac: CABG, Cardiac Catheterization, Cardiac Stent Respiratory: No Pertinent History Gastrointestinal: Appendectomy, Cholecystectomy, Colon Resection Genitourinary: Other Musculoskeletal: Orthopedic Surgery Male Surgical History: No Pertinent History Other Surgical History: BACK reconstruction quadrapalegic t3-T7. Left leg operation times 3, COLON CA AND RESECTION IN JAN, 2016, CABG 2015, fall 2011, wound on buttock cultured pos. suprapubic cath attempted only- unsuccessful Significant Family History: heart disease, diabetes - Social History Smoking Status: Former smoker How long have you smoked: 40 years Exposure to second hand smoke: No Alcohol Use: None Drug Use: none Patient Lives Alone: No - Social Determinants of Health Will the patient participate in the screening: Yes Do you worry about a steady place to live?: No Do you have any problems with any of the following?: No known problems In the past 12 months,have you had to go without utilities?: No Transportation Issues: No Has anyone in your support network made you feel unsafe?: No Have you or anyone in your house had to go without enough: No - Nursing Vital Signs Nursing Vital Signs: Initial Vital Signs Temperature 98.6 F 12/30/23 14:55 Pulse Rate 97 H 12/30/23 14:55 Respiratory Rate 20 12/30/23 14:55 Blood Pressure 142/87 12/30/23 14:55 O2 Sat by Pulse Oximetry 96 12/30/23 14:55 Pain Scale Pain Intensity 5 - Physical Exam General Appearance: no apparent distress, alert Eye Exam: PERRL/EOMI Ears, Nose, Throat Exam: normal ENT inspection Neck Exam: normal inspection, non-tender, supple, full range of motion Respiratory Exam: normal breath sounds, lungs clear Cardiovascular Exam: regular rate/rhythm, normal heart sounds Gastrointestinal/Abdomen Exam: soft, normal bowel sounds, tenderness (Left flank. Ostomy in place) Back Exam: other (Decubitus) Extremity Exam: normal range of motion Neurologic Exam: alert, oriented x 3, cooperative, pants presser II-XII nml as tested, No normal mood/affect Skin Exam: normal color SpO2 Interpretation: normal SpO2: 96 O2 Delivery: Room Air Ordered Tests: Active Orders 24 hr Category Date Time Status IV Insertion STAT Care 12/30/23 15:28 Active ABDOMEN AND PELVIS W/0 CONTRAS [CT] Stat Exams 12/30/23 15:28 Completed CERVICAL SPINE WO CONTRAST [CT] Stat Exams 12/30/23 15:28 Completed CHEST 1 VIEW (PORTABLE) Stat Exams 12/30/23 15:29 Completed HEAD WITHOUT CONTRAST [CT] Stat Exams 12/30/23 15:28 Completed BLOOD CULTURE Stat Lab 12/30/23 15:55 Received CBC W DIFF Stat Lab 12/30/23 15:55 Completed CMP Stat Lab 12/30/23 15:55 Completed CULTURE,URINE Stat Lab 12/30/23 17:20 Received LIPASE Stat Lab 12/30/23 15:55 Completed Lactic Acid Stat Lab 12/30/23 15:45 Completed MAGNESIUM Stat Lab 12/30/23 15:55 Completed PROCALCITONIN Stat Lab 12/30/23 15:55 Completed TROPONIN Q4H Lab 12/30/23 15:55 Completed TROPONIN Q4H Lab 12/30/23 19:30 Ordered TROPONIN Q4H Lab 12/30/23 23:30 Ordered TSH, 3RD Generation Stat Lab 12/30/23 15:55 Completed UA W/RFX UR CULTURE Stat Lab 12/30/23 17:20 Completed Transfer Order Routine Transfer 12/30/23 Ordered Medication Summary Generic Name Dose Route Start Last Admin Trade Name Freq PRN Reason Stop Dose Admin Sodium Chloride 1,000 mls @ 100 mls/hr 12/30/23 18:00 12/30/23 18:27 Sodium Chloride 0.9% 1000 Ml IV 01/29/24 17:59 100 mls/hr .Q10H SHAI Administration Discontinued Medications Generic Name Dose Route Start Last Admin Trade Name Freq PRN Reason Stop Dose Admin Ceftriaxone Sodium 2 gm in 100 mls @ 200 mls/hr 12/30/23 17:59 12/30/23 18:27 Rocephin 2 Gm/100 Ml Nacl IV 12/30/23 18:28 200 mls/hr STAT ONE 200 mls/hr Administration Ceftriaxone Sodium Confirm 12/30/23 18:26 Rocephin 2 Gm/100 Ml Nacl Administered 12/30/23 18:27 Dose 2 gm in 100 mls @ ud IV .STK-MED ONE Lab/Rad Data: Laboratory Result Diagrams 12/30/23 15:55 12/30/23 15:55 Laboratory Results 12/30/23 12/30/23 12/30/23 Range/Units 17:20 15:55 15:55 WBC (4.23-9.07) x10^3/uL RBC (4.63-6.08) x10^6/uL Hgb (13.7-17.5) g/dL Hct (40.1-51.0) % MCV (79.0-92.2) fL MCH (25.7-32.2) pg MCHC (32.3-36.5) g/dL RDW (11.6-14.4) % Plt Count (163-337) x10^3/uL MPV (9.4-12.4) fL Gran % (34.0-67.9) % Immature Gran % (Auto) (0.001-0.429) % Nucleat RBC Rel Count (0.00-0.2) % Eos # (Auto) (0.04-0.54) x10^3/uL Immature Gran # (Auto) (0.001-0.031) x10^3u/L Absolute Lymphs (auto) (1.32-3.57) x10^3/uL Absolute Monos (auto) (0.30-0.82) x10^3/uL Absolute Nucleated RBC (0.00-0.012) x10^3u/L Lymphocytes % (21.8-53.1) % Monocytes % (5.3-12.2) % Eosinophils % (0.8-7.0) % Basophils % (0.2-1.2) % Absolute Granulocytes (1.78-5.38) x10^3/uL Basophils # (0.01-0.08) x10^3/uL Sodium 139 (135-145) mmol/L Potassium 3.8 (3.5-5.1) mmol/L Chloride 107 (98-107) mmol/L Carbon Dioxide 22 (22-30) mmol/L Anion Gap 13.8 (5-15) MEQ/L BUN 19 (9-20) mg/dL Creatinine 1.03 (0.66-1.25) mg/dL Estimated GFR 74.8 ML/MIN Glucose 130 H (74-106) mg/dL Lactic Acid (0.4-2.0) Calcium 9.8 (8.4-10.2) mg/dL Magnesium 1.9 (1.6-2.3) mg/dL Total Bilirubin 0.70 (0.2-1.3) mg/dL AST 29 (17-59) U/L ALT 33 (0-50) U/L Alkaline Phosphatase 133 H (38-126) U/L Troponin I 0.014 (0.000-0.033) ng/mL Serum Total Protein 7.0 (6.3-8.2) g/dL Albumin 3.9 (3.5-5.0) g/dL Lipase 154 (23-300) U/L Procalcitonin 0.096 H (0.030-0.080) ng/mL TSH 3rd Generation 1.672 (0.470-4.680) mIU/L Urine Color Dark Yellow (Yellow) Urine Appearance Cloudy A (Clear) Urine pH 5.5 (4.6-8.0) Ur Specific Bridgman 1.025 (1.005-1.030) Urine Protein 300 A (Negative) Urine Glucose (UA) Negative (Negative) mg/dL Urine Ketones Negative (Negative) Urine Blood Moderate A (Negative) Urine Nitrite Negative (Negative) Urine Bilirubin Negative (Negative) Urine Urobilinogen 0.2 (0.2) mg/dL Ur Leukocyte Esterase Small A (Negative) U Hyaline Cast (Auto) >50 A (0-2) /LPF Urine Microscopic RBC >100 A (0-5) /HPF Urine Microscopic WBC >100 A (0-5) /HPF Ur Epithelial Cells Moderate A (None Seen) /HPF Urine Bacteria Many A (None Seen) /HPF Urine Mucus Few A (NEGATIVE) /HPF Urine Culture Reflexed ORDERED SEPARATELY (NO) 12/30/23 12/30/23 Range/Units 15:55 15:45 WBC 7.0 (4.23-9.07) x10^3/uL RBC 5.11 (4.63-6.08) x10^6/uL Hgb 13.3 L (13.7-17.5) g/dL Hct 41.6 (40.1-51.0) % MCV 81.4 (79.0-92.2) fL MCH 26.0 (25.7-32.2) pg MCHC 32.0 L (32.3-36.5) g/dL RDW 15.0 H (11.6-14.4) % Plt Count 205 (163-337) x10^3/uL MPV 10.0 (9.4-12.4) fL Gran % 65.7 (34.0-67.9) % Immature Gran % (Auto) 0.3 (0.001-0.429) % Nucleat RBC Rel Count 0.0 (0.00-0.2) % Eos # (Auto) 0.05 (0.04-0.54) x10^3/uL Immature Gran # (Auto) 0.02 (0.001-0.031) x10^3u/L Absolute Lymphs (auto) 1.50 (1.32-3.57) x10^3/uL Absolute Monos (auto) 0.78 (0.30-0.82) x10^3/uL Absolute Nucleated RBC 0.00 (0.00-0.012) x10^3u/L Lymphocytes % 21.5 L (21.8-53.1) % Monocytes % 11.2 (5.3-12.2) % Eosinophils % 0.7 L (0.8-7.0) % Basophils % 0.6 (0.2-1.2) % Absolute Granulocytes 4.59 (1.78-5.38) x10^3/uL Basophils # 0.04 (0.01-0.08) x10^3/uL Sodium (135-145) mmol/L Potassium (3.5-5.1) mmol/L Chloride (98-107) mmol/L Carbon Dioxide (22-30) mmol/L Anion Gap (5-15) MEQ/L BUN (9-20) mg/dL Creatinine (0.66-1.25) mg/dL Estimated GFR ML/MIN Glucose (74-106) mg/dL Lactic Acid 1.7 (0.4-2.0) Calcium (8.4-10.2) mg/dL Magnesium (1.6-2.3) mg/dL Total Bilirubin (0.2-1.3) mg/dL AST (17-59) U/L ALT (0-50) U/L Alkaline Phosphatase (38-126) U/L Troponin I (0.000-0.033) ng/mL Serum Total Protein (6.3-8.2) g/dL Albumin (3.5-5.0) g/dL Lipase (23-300) U/L Procalcitonin (0.030-0.080) ng/mL TSH 3rd Generation (0.470-4.680) mIU/L Urine Color (Yellow) Urine Appearance (Clear) Urine pH (4.6-8.0) Ur Specific Bridgman (1.005-1.030) Urine Protein (Negative) Urine Glucose (UA) (Negative) mg/dL Urine Ketones (Negative) Urine Blood (Negative) Urine Nitrite (Negative) Urine Bilirubin (Negative) Urine Urobilinogen (0.2) mg/dL Ur Leukocyte Esterase (Negative) U Hyaline Cast (Auto) (0-2) /LPF Urine Microscopic RBC (0-5) /HPF Urine Microscopic WBC (0-5) /HPF Ur Epithelial Cells (None Seen) /HPF Urine Bacteria (None Seen) /HPF Urine Mucus (NEGATIVE) /HPF Urine Culture Reflexed (NO) - Progress Progress: unchanged Progress Note: 12/30/23 18:01 78-year-old with multiple medical problems including coronary artery disease/CABG, hypertension, hyperlipidemia, colon cancer with permanent colostomy, decubitus, recurrent UTI is evaluated in the ER for generalized weakness, feeling sleepy all the time and a recent fall with questionable injury to the head. Patient is awake alert and fairly oriented and answering most of the questions. No obvious focal deficit. He is given gentle hydration, workup showed normal white count, chemistries fairly unremarkable with a normal lactate and procalcitonin of 0.09, does have UTI and given dose of Rocephin. Obtain CT head and cervical spine because of recent fall which are negative for any acute trauma findings. CT abdomen pelvis showing moderate stool load which is consistent with his pain on the left side although abdominal exam is soft and minimal tenderness. Patient has good bowel sounds. Patient has a decubitus which was treated with IV antibiotics, it is still there but ID has stopped antibiotics and removed PICC line recently. I believe patient hallucination, altered mental status is secondary to UTI. I have shared the results of workup with patient and family and recommended observation admission which they agree. Discussed the CODE STATUS with patient and family and he is DNR. Counseled pt/family regarding: lab results, diagnosis, rad results Medical Desision Making - Independent Historian Additional History obtained from: Spouse, Child - Discussion of managment Care discussed with:: hospitalist Reviewed:: Test results Agreed on:: Treatment plan Will see patient: in hospital - Diagnostic Testing Diagnostic test were ordered, analyzed, and reviewed by me: Yes Radiological Interpretation: Reviewed by me - Risk of complications The pt has a mod risk of morbidity or mortality based on: Need for prescription drug management The pt has a high risk of morbidity or mortality based on: Decision regarding hospitilization or escalation of hosp level of care - Departure Departure Disposition: Observation Clinical Impression: Acute UTI (urinary tract infection), Generalized weakness, AMS (altered mental status) Condition: Stable Critical Care Time: No Referrals: [facility] [Primary Care Provider] - Follow up/PCP as directed
[2023-12-30 16:50] LABS: ALBUMIN 3.9 g/dL (3.5-5.0); ANION GAP 13.8 MEQ/L (5-15); BILIRUBIN,TOTAL 0.7 mg/dL (0.2-1.3); Calcium 9.8 mg/dL (8.4-10.2); Creatinine 1 1.03 mg/dL (0.66-1.25); EST GLOMERULAR FILTRATION RATE 74.8 ML/MIN; MAGNESIUM 1.9 mg/dL (1.6-2.3); PROCALCITONIN 0.096 ng/mL (0.030-0.080); Potassium 3.8 mmol/L (3.5-5.1); TSH, 3RD Generation 1.672 mIU/L (0.470-4.680)
--- NOTE | 2023-12-30 16:56 | XRAY ---
Indication: Head injury following fall. Confusion. Multiple contiguous images obtained through the head without contrast. Comparison: May 26, 2021 Again age-appropriate global atrophy and tiny lacunar infarct right basal ganglia. No acute intracranial hemorrhage, abnormal extra-axial fluid collection, or mass effect. Fourth ventricle is midline without hydrocephalus. Bony calvarium intact. Visualized paranasal sinuses and mastoid air cells are clear. Impression: Again atrophy and tiny lacunar infarct right basal ganglia. No new/acute intracranial abnormalities.
--- NOTE | 2023-12-30 17:00 | XRAY ---
Indication: Status post fall. Multiple contiguous axial images obtained through the cervical spine. Sagittal and coronal reformatted images obtained. Comparison: None No acute fracture, subluxation, or jumped facet. Chronic findings including osteopenia, mild/moderate C5-T2 degenerative endplate spurring, mild multilevel bilateral degenerative facet hypertrophy right greater than left, and C5-T1 disc space narrowing. Normal appearing craniocervical junction. Visualized noncontrasted soft tissues demonstrates moderate bilateral carotid calcifications. Impression: 1. Negative acute fracture/subluxation. 2. Incidental chronic findings detailed above.
--- NOTE | 2023-12-30 17:02 | XRAY ---
Indication: Confusion. Status post fall. Comparison: November 30, 2023 Portable chest remains inflated and clear. Heart not enlarged again with CABG. Bony thorax intact again with osteopenia, degenerative changes, sternotomy hardware, and T4-T12 fusion hardware. Impression: Continued nonacute chest with chronic features.
--- NOTE | 2023-12-30 17:06 | XRAY ---
Indication: Status post fall. Left abdomen pain. Multiple contiguous axial images obtained through the abdomen and pelvis without contrast. Comparison: December 13, 2023 Again beam artifact from multilevel bilateral thoracic fusion hardware. Lung bases again demonstrates minimal scattered fibrosis/scarring. No focal infiltrate or effusion. Heart not enlarged again with scattered coronary calcifications. Noncontrasted stomach and bowel loops appear nonobstructed. Again mild diffuse scattered colonic fecal debris, left midabdomen colostomy, appendectomy, and cholecystectomy. Near empty urinary bladder again demonstrates Dinero balloon catheter in situ. No free fluid/air. Remaining liver, pancreas, spleen, adrenal glands, kidneys, ureters, and bladder are unremarkable for noncontrast exam. Osseous structures again demonstrates osteopenia, moderate/advanced multilevel thoracal lumbar degenerative spondylosis, moderate degenerative changes both hips, and old nonunited/comminuted possible left femur fracture. Grossly stable appearing sacral decubitus ulcer. Impression: 1. Again beam artifact from spinal fusion hardware. 2. Again mild diffuse fecal stasis with left colostomy, pulmonary fibrosis/scarring, Dinero catheter in situ, arteriosclerotic disease, chronic bony findings, and sacral decubitus ulcers. 3. No new/acute findings on this noncontrast exam.
[2023-12-30 17:38] LABS: Appearance Cloudy (Clear); Bilirubin Negative (Negative); Blood Moderate (Negative); Glucose, Urine Negative (Negative); Ketones Negative (Negative); Leukocyte Esterase Small (Negative); Nitrite Negative (Negative); Ph 5.5 (4.6-8.0); Protein,Urine Dip 300 (Negative); Specific Gravity 1.025 (1.005-1.030); Urobilinogen 0.2 mg/dL (0.2)
[2023-12-30 17:51] LABS: Bacteria Many /HPF (None Seen); Epithelial Cells Moderate /HPF (None Seen); Hyaline Casts >50 /LPF (0-2); Mucus Few /HPF (NEGATIVE); RBC >100 /HPF (0-5); WBC >100 /HPF (0-5)
[2023-12-30] MEDS ORDERED: Sodium Chloride 0.9% 1000 ML 1,000 ML ONE (18:26)
[2023-12-30] MEDS ORDERED: ROCEPHIN 2 GM/100 ML NACL 2 GM/100 ML IVPB IV ONE (18:26)
[2023-12-30] MEDS: Sodium Chloride 0.9% 1000 ML 1,000 ML IV SCH (18:27)
[2023-12-30] MEDS: ROCEPHIN 2 GM/100 ML NACL 2 GM/100 ML IVPB IV ONE (18:27)
--- NOTE | 2023-12-30 21:03 | PCM.HP ---
History of Present Illness - Chief Complaint Chief Complaint: Acute UTI, altered mental status, generalized weakness Date: 12/30/23 History of Present Illness: Mr. GLASER is a 78 year old male with a past medical history significant for hypertension, hyperlipidemia, coronary artery disease status post CABG, colon cancer status post hemicolectomy and colostomy with recent UTI/decubitus ulcer who was brought by family to the hospital with altered mental status and sofia lucinations. He reportedly had fallen out of his head at home and hit his head but no loss of consciousness. He was found to have a UTI and has been recommended for admission to the hospital. He received some IVFs in the ER and IV antibiotics. He is seen via telehealth with nurse at bedside. He is awake, appears comfortable, and is hemodynamically stable, but does appear confused, unable to give a coherent history. - Review of Systems Constitutional: No Fever, No Chills Eyes: No Vision Changes Ears, Nose, & Throat: No Sinus Drainage Respiratory: No Cough, No Orthopnea, No Short Of Breath Cardiac: No Chest Pain, No Edema Abdominal/Gastrointestinal: No Abdominal Pain, No Nausea, No Vomiting, No Diarrhea Genitourinary Symptoms: No Dysuria, No Frequency, No Hematuria Musculoskeletal: No Neck Pain Skin: No Rash Neurological: No Headache Psychological: No Suicidal Ideations Endocrine: No Polyuria, No Polydipsia Medications & Allergies Home Medications: Home Medication List Testosterone Cypionate 100 mg IM UD 05/18/16 [History Confirmed 12/30/23] Venlafaxine HCl [Effexor Xr] 150 mg PO DAILY 05/18/16 [History Confirmed 12/30/23] Atorvastatin Calcium [Lipitor] 40 mg PO HS 01/18/17 [History Confirmed 12/30/23] Isosorbide Mononitrate [Isosorbide Mononitrate ER] 60 mg PO DAILY 01/18/17 [History Confirmed 12/30/23] Naloxegol Oxalate [Movantik] 25 mg PO QAM 10/09/18 [History Confirmed 12/30/23] Aspirin [Aspirin EC] 81 mg PO EVENING MEAL 01/06/19 [History Confirmed 12/30/23] Clopidogrel Bisulfate [PLAVIX Tablet] 75 mg PO DINNER 01/06/19 [History Confirmed 12/30/23] Metoprolol Succinate 100 mg [Toprol Xl 100 MG] 100 mg PO DAILY #90 tablet.sa 01/09/19 [Rx Confirmed 12/30/23] Trazodone HCl 50 mg [Desyrel 50 mg] 50 mg PO HS 04/03/19 [History Confirmed 12/30/23] Nitroglycerin 0.4 mg SL UD 05/06/21 [History Confirmed 12/30/23] Cephalexin Mh 250 mg [Keflex 250 mg] 1 tab PO DAILY 05/14/23 [History Confirmed 12/30/23] Dicyclomine HCl 20 mg [Bentyl 20 mg] 20 mg PO QID 05/14/23 [History Confirmed 12/30/23] Finasteride 5 mg [Proscar 5 MG] 5 mg PO HS 05/14/23 [History Confirmed 12/30/23] Gabapentin [Gralise] 1,800 mg PO EVENING MEAL 05/14/23 [History Confirmed 12/30/23] Gabapentin [Gralise] 600 mg PO LUNCH 05/14/23 [History Confirmed 12/30/23] Methenamine Hippurate 1 tab PO BID 05/14/23 [History Confirmed 12/30/23] Sennosides/Docusate Sodium [Docusate Sodium-Sennosides Tab] 1 tab PO HS 05/14/23 [History Confirmed 12/30/23] Lidocaine [Lidocaine Pain Relief] 1 each TP DAILY PRN 07/07/23 [History Confirmed 12/30/23] Ranolazine 500 MG [Ranexa 500 MG] 500 mg PO BID 07/07/23 [History Confirmed 12/30/23] Tapentadol HCl [Nucynta] 100 mg PO Q4-6HPRN PRN 12/13/23 [History Confirmed 12/30/23] lamoTRIgine [Lamotrigine] 200 mg PO DAILY 12/13/23 [History Confirmed 12/30/23] PANTOPRAZOLE 40 mg Tablet [Protonix 40MG Tablet] 40 mg PO DAILY 12/30/23 [History Confirmed 12/30/23] Allergies/Adverse Reactions: Allergies Allergy/AdvReac Type Severity Reaction Status Date / Time No Known Drug Allergies Allergy Verified 10/17/24 14:55 - Past Medical History Past Medical History: Yes Neurological History: Other ENT History: Cataracts Cardiac History: Coronary Artery Disease, High Cholesterol, Hypertension, Other Respiratory History: Sleep Apnea Endocrine Medical History: Diabetes Type II Musculoskelatal History: Arthritis GI Medical History: Colorectal Cancer, GI Bleed History: No Pertinent History Pyscho-Social History: No Pertinent History Male Reproductive Disorders: No Pertinent History Comment: Cardiac stents, CABG x 4. Spinal cord injury 2010, quadraplegia. Hx of cervical fx, unable to recall date. watching carotids- scanned apr 2021. pressure wound to bottom- healing and being treated - Past Surgical History Past Surgical History: Yes Neuro Surgical History: No Pertinent History Cardiac History: CABG, Cardiac Catheterization, Cardiac Stent Respiratory Surgery: No Pertinent History GI Surgical History: Appendectomy, Cholecystectomy, Colon Resection Genitourinary Surgical Hx: Other Musculskeletal Surgical Hx: Orthopedic Surgery Male Surgical History: No Pertinent History Other Surgical History: BACK reconstruction quadrapalegic t3-T7. Left leg operation times 3, COLON CA AND RESECTION IN JAN, 2016, CABG 2015, fall 2011, wound on buttock cultured pos. suprapubic cath attempted only- unsuccessful Significant Family History: heart disease, diabetes - Social History Smoking Status: Former smoker How long have you smoked: 40 years Exposure to second hand smoke: No Alcohol: None Drug Use: none - Social Determinants of Health Will the patient participate in the screening: Yes Do you worry about a steady place to live?: No Do you have any problems with any of the following?: No known problems In the past 12 months,have you had to go without utilities?: No Have you or anyone in your house had to go without enough: No Transportation Issues: No Has anyone in your support network made you feel unsafe?: No Does the patient want assistance with any of the above?: No - Physical Exam Vital Signs: Vital Signs - 24 hr Temp Pulse Resp BP BP Pulse Ox 12/30/23 20:20 97.4 F 73 16 136/65 95 12/30/23 18:48 96 12/30/23 18:00 67 20 127/59 95 12/30/23 17:30 65 15 112/55 95 12/30/23 17:01 77 16 111/50 99 12/30/23 16:33 71 15 101/74 97 10/17/24 16:00 116/69 12/30/23 15:30 83 20 118/65 91 L 12/30/23 14:55 98.6 F 97 H 20 142/87 96 General Appearance: no apparent distress Neurologic Exam: confusion Ears, Nose, Throat Exam: dry mucous membranes Neck Exam: supple Respiratory Exam: No respiratory distress Cardiovascular Exam: regular rate/rhythm Gastrointestinal/Abdomen Exam: soft Back Exam: No rash Extremity Exam: No pedal edema, No swelling Skin Exam: normal color, No rash Results - Labs Lab/Micro Results: Lab Results-Last 24 Hours 12/30/23 12/30/23 12/30/23 Range/Units 15:45 15:55 15:55 WBC 7.0 (4.23-9.07) x10^3/uL RBC 5.11 (4.63-6.08) x10^6/uL Hgb 13.3 L (13.7-17.5) g/dL Hct 41.6 (40.1-51.0) % MCV 81.4 (79.0-92.2) fL MCH 26.0 (25.7-32.2) pg MCHC 32.0 L (32.3-36.5) g/dL RDW 15.0 H (11.6-14.4) % Plt Count 205 (163-337) x10^3/uL MPV 10.0 (9.4-12.4) fL Gran % 65.7 (34.0-67.9) % Immature Gran % (Auto) 0.3 (0.001-0.429) % Nucleat RBC Rel Count 0.0 (0.00-0.2) % Eos # (Auto) 0.05 (0.04-0.54) x10^3/uL Immature Gran # (Auto) 0.02 (0.001-0.031) x10^3u/L Absolute Lymphs (auto) 1.50 (1.32-3.57) x10^3/uL Absolute Monos (auto) 0.78 (0.30-0.82) x10^3/uL Absolute Nucleated RBC 0.00 (0.00-0.012) x10^3u/L Lymphocytes % 21.5 L (21.8-53.1) % Monocytes % 11.2 (5.3-12.2) % Eosinophils % 0.7 L (0.8-7.0) % Basophils % 0.6 (0.2-1.2) % Absolute Granulocytes 4.59 (1.78-5.38) x10^3/uL Basophils # 0.04 (0.01-0.08) x10^3/uL Sodium 139 (135-145) mmol/L Potassium 3.8 (3.5-5.1) mmol/L Chloride 107 (98-107) mmol/L Carbon Dioxide 22 (22-30) mmol/L Anion Gap 13.8 (5-15) MEQ/L BUN 19 (9-20) mg/dL Creatinine 1.03 (0.66-1.25) mg/dL Estimated GFR 74.8 ML/MIN Glucose 130 H (74-106) mg/dL Lactic Acid 1.7 (0.4-2.0) Calcium 9.8 (8.4-10.2) mg/dL Magnesium 1.9 (1.6-2.3) mg/dL Total Bilirubin 0.70 (0.2-1.3) mg/dL AST 29 (17-59) U/L ALT 33 (0-50) U/L Alkaline Phosphatase 133 H (38-126) U/L Troponin I (0.000-0.033) ng/mL Serum Total Protein 7.0 (6.3-8.2) g/dL Albumin 3.9 (3.5-5.0) g/dL Lipase 154 (23-300) U/L Procalcitonin 0.096 H (0.030-0.080) ng/mL TSH 3rd Generation 1.672 (0.470-4.680) mIU/L Urine Color (Yellow) Urine Appearance (Clear) Urine pH (4.6-8.0) Ur Specific [place] (1.005-1.030) Urine Protein (Negative) Urine Glucose (UA) (Negative) mg/dL Urine Ketones (Negative) Urine Blood (Negative) Urine Nitrite (Negative) Urine Bilirubin (Negative) Urine Urobilinogen (0.2) mg/dL Ur Leukocyte Esterase (Negative) U Hyaline Cast (Auto) (0-2) /LPF Urine Microscopic RBC (0-5) /HPF Urine Microscopic WBC (0-5) /HPF Ur Epithelial Cells (None Seen) /HPF Urine Bacteria (None Seen) /HPF Urine Mucus (NEGATIVE) /HPF Urine Culture Reflexed (NO) 12/30/23 12/30/23 12/30/23 Range/Units 15:55 17:20 19:30 WBC (4.23-9.07) x10^3/uL RBC (4.63-6.08) x10^6/uL Hgb (13.7-17.5) g/dL Hct (40.1-51.0) % MCV (79.0-92.2) fL MCH (25.7-32.2) pg MCHC (32.3-36.5) g/dL RDW (11.6-14.4) % Plt Count (163-337) x10^3/uL MPV (9.4-12.4) fL Gran % (34.0-67.9) % Immature Gran % (Auto) (0.001-0.429) % Nucleat RBC Rel Count (0.00-0.2) % Eos # (Auto) (0.04-0.54) x10^3/uL Immature Gran # (Auto) (0.001-0.031) x10^3u/L Absolute Lymphs (auto) (1.32-3.57) x10^3/uL Absolute Monos (auto) (0.30-0.82) x10^3/uL Absolute Nucleated RBC (0.00-0.012) x10^3u/L Lymphocytes % (21.8-53.1) % Monocytes % (5.3-12.2) % Eosinophils % (0.8-7.0) % Basophils % (0.2-1.2) % Absolute Granulocytes (1.78-5.38) x10^3/uL Basophils # (0.01-0.08) x10^3/uL Sodium (135-145) mmol/L Potassium (3.5-5.1) mmol/L Chloride (98-107) mmol/L Carbon Dioxide (22-30) mmol/L Anion Gap (5-15) MEQ/L BUN (9-20) mg/dL Creatinine (0.66-1.25) mg/dL Estimated GFR ML/MIN Glucose (74-106) mg/dL Lactic Acid (0.4-2.0) Calcium (8.4-10.2) mg/dL Magnesium (1.6-2.3) mg/dL Total Bilirubin (0.2-1.3) mg/dL AST (17-59) U/L ALT (0-50) U/L Alkaline Phosphatase (38-126) U/L Troponin I 0.014 0.018 (0.000-0.033) ng/mL Serum Total Protein (6.3-8.2) g/dL Albumin (3.5-5.0) g/dL Lipase (23-300) U/L Procalcitonin (0.030-0.080) ng/mL TSH 3rd Generation (0.470-4.680) mIU/L Urine Color Dark Yellow (Yellow) Urine Appearance Cloudy A (Clear) Urine pH 5.5 (4.6-8.0) Ur Specific [place] 1.025 (1.005-1.030) Urine Protein 300 A (Negative) Urine Glucose (UA) Negative (Negative) mg/dL Urine Ketones Negative (Negative) Urine Blood Moderate A (Negative) Urine Nitrite Negative (Negative) Urine Bilirubin Negative (Negative) Urine Urobilinogen 0.2 (0.2) mg/dL Ur Leukocyte Esterase Small A (Negative) U Hyaline Cast (Auto) >50 A (0-2) /LPF Urine Microscopic RBC >100 A (0-5) /HPF Urine Microscopic WBC >100 A (0-5) /HPF Ur Epithelial Cells Moderate A (None Seen) /HPF Urine Bacteria Many A (None Seen) /HPF Urine Mucus Few A (NEGATIVE) /HPF Urine Culture Reflexed ORDERED SEPARATELY (NO) - Radiology Impressions Radiology Exams & Impressions: Radiology Procedures Category Date Time Status ABDOMEN AND PELVIS W/0 CONTRAS [CT] Stat Exams 12/30/23 15:28 Completed CERVICAL SPINE WO CONTRAST [CT] Stat Exams 12/30/23 15:28 Completed CHEST 1 VIEW (PORTABLE) Stat Exams 12/30/23 15:29 Completed HEAD WITHOUT CONTRAST [CT] Stat Exams 12/30/23 15:28 Completed Assessment/Plan (1) AMS (altered mental status) Current Visit: Yes Status: Acute Qualifiers: Altered mental status type: disorientation Qualified Code(s): R41.0 - Disorientation, unspecified Assessment & Plan: Likely secondary to UTI, status post recent fall but no LOC 1. Admit to hospital 2. Encourage PO intake off IVFs 3. Empiric antibiotics, f/u cultures 4. Fall precautions 5. DVT/GI prophylaxis Code(s): R41.82 - ALTERED MENTAL STATUS, UNSPECIFIED (2) Acute UTI (urinary tract infection) Current Visit: Yes Status: Acute Assessment & Plan: Appears to have UTI with recent history of infection/decubitus ulcer 1. Will start empiric antibiotics 2. F/u cultures 3. Encourage PO intake, will defer further IVFs for now 4. Trend WBC Code(s): N39.0 - URINARY TRACT INFECTION, SITE NOT SPECIFIED (3) Generalized weakness Current Visit: Yes Status: Acute Assessment & Plan: Likely from recent infections/debility 1. Fall precautions 2. PT eval 3. ? Hospice Code(s): R53.1 - WEAKNESS (4) History of coronary artery disease Current Visit: No Status: Acute Assessment & Plan: Stable at this time Code(s): Z86.79 - PERSONAL HISTORY OF OTHER DISEASES OF THE CIRCULATORY SYSTEM (5) Colostomy care Current Visit: Yes Status: Acute Assessment & Plan: History of colon cancer status post colostomy with decreased output recently likely from dehydration 1. Encourage PO intake 2. Monitor output 3. Watch for C dif with recent antibiotics Code(s): Z43.3 - ENCOUNTER FOR ATTENTION TO COLOSTOMY Telemedicine Encounter - Telemedicine Encounter Telemedicine Encounter: "The entirety of this encounter was performed via Telemedicine" This visit was performed using real-time audio and video connection between my location and thepatients locationwith the assistance of a surrogateat the patients location. Written or verbal consent was obtained from the patient/guardian to perform this visit [email or web address] technology. Any patient questions regarding the telemedicine interaction were answered.
[2023-12-30] MEDS: LIPITOR 40MG PO SCH (22:16)
[2023-12-30] MEDS: DESYREL 50 MG PO SCH (22:41)
[2023-12-30] MEDS: ZOCOR 20MG PO SCH (22:41)
[2023-12-30] MEDS: Proscar 5 MG PO SCH (22:41)
--- NOTE | 2023-12-31 05:29 | PCM.NOTE ---
Date and Time: 12/31/23 0524 Subjective Assessment: Mr. Ruby is a 78 year old male with a pmhx of paraplegia, coronary artery disease/CABG, hypertension, hyperlipidemia, colon cancer with permanent colostomy, decubitus ulcer with osteomyelitis of the lower back recently finished course of antibiotics, recurrent UTI admitted 12/30/23 for UTI with mild encephalopathy. Patient had fell out of bed approximately 2 days ago and and has been found to be more lethargic with increasing confusion with hallucinations per family report. Patient also endorsing LLQ and flank pain with decreased ostomy output. Lab findings with normal white count, chemistries fairly unremarkable with a normal lactate and procalcitonin of 0.09. Urinalysis pyuria. CT head and cervical spine with no acute findings. CT abdomen and pelvis with mild diffuse fecal stasis with left colostomy, pulmonary fibrosis/scarring, Dinero catheter in situ, arteriosclerotic disease, chronic. CX R with no acute findings. Patient started on rocephin in the ED. 12/31/23: Met with patient bedside. Continued confusion - alert, orientated to self, believed he was in [place]. Endorses continued left flank pain. [facility] consulted and coming today to speak with patient and family. - Review of Systems Constitutional: Weakness Eyes: No Symptoms Ears, Nose, & Throat: No Symptoms Respiratory: No Symptoms Cardiac: No Symptoms Abdominal/Gastrointestinal: Abdominal Pain (Left flank) Genitourinary Symptoms: No Symptoms Musculoskeletal: Joint Pain Skin: No Symptoms Neurological: Paralysis Psychological: Other (confusion) Endocrine: No Symptoms Hematologic/Lymphatic: No Symptoms Immunological/Allergic: No Symptoms Objective Exam General Appearance: no apparent distress Neurologic Exam: alert, cooperative, disoriented, confusion Skin Exam: pale Wound Assessment: Skin/Wound Assessment Wound/Incision Assessment Start: 12/30/23 20:44 Text: Status: Active Freq: Q6H Protocol: Document 12/31/23 02:00 CLEM (Rec: 12/31/23 04:07 AK [id number]) Wound/Incision Assessment bilateral lower legs Wound Assessment Shift Assessment Wound Type Abrasion Wound Stage Non Pressure Wound Drainage Amount None General Appearance Open to air,Clean/Dry Wound Bed Greatest Portion Red (Granulation) Surrounding Tissue [place] Comment abrasions to bilateral shins - [employer] Medial Sacrum Wound Assessment Shift Assessment Wound Type Pressure Ulcer Comment RADHA wound - see note Wound Photo Photo Taken No Eye Exam: PERRL Ears, Nose, Throat Exam: normal ENT inspection Neck Exam: normal inspection Respiratory Exam: normal breath sounds, lungs clear Cardiovascular Exam: regular rate/rhythm, normal heart sounds Gastrointestinal/Abdomen Exam: tenderness (left flank), other (colostomy bag) Extremity Exam: normal inspection Back Exam: normal inspection Male Genitalia Exam: deferred Rectal Exam: deferred Objective Data Vital Signs: Vital Signs - 24 hr Temp Pulse Resp BP BP Pulse Ox 12/31/23 04:00 97.1 F 65 19 147/70 94 L 12/30/23 23:48 97.4 F 65 18 156/72 95 12/30/23 20:20 97.4 F 73 16 136/65 95 12/30/23 18:48 96 12/30/23 18:00 67 20 127/59 95 12/30/23 17:30 65 15 112/55 95 12/30/23 17:01 77 16 111/50 99 12/30/23 16:33 71 15 101/74 97 12/30/23 16:00 116/69 12/30/23 15:30 83 20 118/65 91 L 12/30/23 14:55 98.6 F 97 H 20 142/87 96 Pain Assessment - Last Documented Pain Intensity 0 Intake and Output: Intake & Output 12/28/23 12/29/23 12/30/23 12/31/23 11:59 11:59 11:59 11:59 Intake Total 731 Output Total 250 Balance 481 Weight 91.6 kg Lab Results: Lab Results-Last 24 Hours 12/30/23 12/30/23 12/30/23 Range/Units 15:45 15:55 15:55 WBC 7.0 (4.23-9.07) x10^3/uL RBC 5.11 (4.63-6.08) x10^6/uL Hgb 13.3 L (13.7-17.5) g/dL Hct 41.6 (40.1-51.0) % MCV 81.4 (79.0-92.2) fL MCH 26.0 (25.7-32.2) pg MCHC 32.0 L (32.3-36.5) g/dL RDW 15.0 H (11.6-14.4) % Plt Count 205 (163-337) x10^3/uL MPV 10.0 (9.4-12.4) fL Gran % 65.7 (34.0-67.9) % Immature Gran % (Auto) 0.3 (0.001-0.429) % Nucleat RBC Rel Count 0.0 (0.00-0.2) % Eos # (Auto) 0.05 (0.04-0.54) x10^3/uL Immature Gran # (Auto) 0.02 (0.001-0.031) x10^3u/L Absolute Lymphs (auto) 1.50 (1.32-3.57) x10^3/uL Absolute Monos (auto) 0.78 (0.30-0.82) x10^3/uL Absolute Nucleated RBC 0.00 (0.00-0.012) x10^3u/L Lymphocytes % 21.5 L (21.8-53.1) % Monocytes % 11.2 (5.3-12.2) % Eosinophils % 0.7 L (0.8-7.0) % Basophils % 0.6 (0.2-1.2) % Absolute Granulocytes 4.59 (1.78-5.38) x10^3/uL Basophils # 0.04 (0.01-0.08) x10^3/uL Sodium 139 (135-145) mmol/L Potassium 3.8 (3.5-5.1) mmol/L Chloride 107 (98-107) mmol/L Carbon Dioxide 22 (22-30) mmol/L Anion Gap 13.8 (5-15) MEQ/L BUN 19 (9-20) mg/dL Creatinine 1.03 (0.66-1.25) mg/dL Estimated GFR 74.8 ML/MIN Glucose 130 H (74-106) mg/dL POC Glucometer (74 to 106) mg/dL Lactic Acid 1.7 (0.4-2.0) Calcium 9.8 (8.4-10.2) mg/dL Magnesium 1.9 (1.6-2.3) mg/dL Total Bilirubin 0.70 (0.2-1.3) mg/dL AST 29 (17-59) U/L ALT 33 (0-50) U/L Alkaline Phosphatase 133 H (38-126) U/L Troponin I (0.000-0.033) ng/mL Serum Total Protein 7.0 (6.3-8.2) g/dL Albumin 3.9 (3.5-5.0) g/dL Lipase 154 (23-300) U/L Procalcitonin 0.096 H (0.030-0.080) ng/mL TSH 3rd Generation 1.672 (0.470-4.680) mIU/L Urine Color (Yellow) Urine Appearance (Clear) Urine pH (4.6-8.0) Ur Specific [place] (1.005-1.030) Urine Protein (Negative) Urine Glucose (UA) (Negative) mg/dL Urine Ketones (Negative) Urine Blood (Negative) Urine Nitrite (Negative) Urine Bilirubin (Negative) Urine Urobilinogen (0.2) mg/dL Ur Leukocyte Esterase (Negative) U Hyaline Cast (Auto) (0-2) /LPF Urine Microscopic RBC (0-5) /HPF Urine Microscopic WBC (0-5) /HPF Ur Epithelial Cells (None Seen) /HPF Urine Bacteria (None Seen) /HPF Urine Mucus (NEGATIVE) /HPF Urine Culture Reflexed (NO) 12/30/23 12/30/23 12/30/23 Range/Units 15:55 17:20 19:30 WBC (4.23-9.07) x10^3/uL RBC (4.63-6.08) x10^6/uL Hgb (13.7-17.5) g/dL Hct (40.1-51.0) % MCV (79.0-92.2) fL MCH (25.7-32.2) pg MCHC (32.3-36.5) g/dL RDW (11.6-14.4) % Plt Count (163-337) x10^3/uL MPV (9.4-12.4) fL Gran % (34.0-67.9) % Immature Gran % (Auto) (0.001-0.429) % Nucleat RBC Rel Count (0.00-0.2) % Eos # (Auto) (0.04-0.54) x10^3/uL Immature Gran # (Auto) (0.001-0.031) x10^3u/L Absolute Lymphs (auto) (1.32-3.57) x10^3/uL Absolute Monos (auto) (0.30-0.82) x10^3/uL Absolute Nucleated RBC (0.00-0.012) x10^3u/L Lymphocytes % (21.8-53.1) % Monocytes % (5.3-12.2) % Eosinophils % (0.8-7.0) % Basophils % (0.2-1.2) % Absolute Granulocytes (1.78-5.38) x10^3/uL Basophils # (0.01-0.08) x10^3/uL Sodium (135-145) mmol/L Potassium (3.5-5.1) mmol/L Chloride (98-107) mmol/L Carbon Dioxide (22-30) mmol/L Anion Gap (5-15) MEQ/L BUN (9-20) mg/dL Creatinine (0.66-1.25) mg/dL Estimated GFR ML/MIN Glucose (74-106) mg/dL POC Glucometer (74 to 106) mg/dL Lactic Acid (0.4-2.0) Calcium (8.4-10.2) mg/dL Magnesium (1.6-2.3) mg/dL Total Bilirubin (0.2-1.3) mg/dL AST (17-59) U/L ALT (0-50) U/L Alkaline Phosphatase (38-126) U/L Troponin I 0.014 0.018 (0.000-0.033) ng/mL Serum Total Protein (6.3-8.2) g/dL Albumin (3.5-5.0) g/dL Lipase (23-300) U/L Procalcitonin (0.030-0.080) ng/mL TSH 3rd Generation (0.470-4.680) mIU/L Urine Color Dark Yellow (Yellow) Urine Appearance Cloudy A (Clear) Urine pH 5.5 (4.6-8.0) Ur Specific [place] 1.025 (1.005-1.030) Urine Protein 300 A (Negative) Urine Glucose (UA) Negative (Negative) mg/dL Urine Ketones Negative (Negative) Urine Blood Moderate A (Negative) Urine Nitrite Negative (Negative) Urine Bilirubin Negative (Negative) Urine Urobilinogen 0.2 (0.2) mg/dL Ur Leukocyte Esterase Small A (Negative) U Hyaline Cast (Auto) >50 A (0-2) /LPF Urine Microscopic RBC >100 A (0-5) /HPF Urine Microscopic WBC >100 A (0-5) /HPF Ur Epithelial Cells Moderate A (None Seen) /HPF Urine Bacteria Many A (None Seen) /HPF Urine Mucus Few A (NEGATIVE) /HPF Urine Culture Reflexed ORDERED SEPARATELY (NO) 12/30/23 12/30/23 Range/Units 21:15 22:55 WBC (4.23-9.07) x10^3/uL RBC (4.63-6.08) x10^6/uL Hgb (13.7-17.5) g/dL Hct (40.1-51.0) % MCV (79.0-92.2) fL MCH (25.7-32.2) pg MCHC (32.3-36.5) g/dL RDW (11.6-14.4) % Plt Count (163-337) x10^3/uL MPV (9.4-12.4) fL Gran % (34.0-67.9) % Immature Gran % (Auto) (0.001-0.429) % Nucleat RBC Rel Count (0.00-0.2) % Eos # (Auto) (0.04-0.54) x10^3/uL Immature Gran # (Auto) (0.001-0.031) x10^3u/L Absolute Lymphs (auto) (1.32-3.57) x10^3/uL Absolute Monos (auto) (0.30-0.82) x10^3/uL Absolute Nucleated RBC (0.00-0.012) x10^3u/L Lymphocytes % (21.8-53.1) % Monocytes % (5.3-12.2) % Eosinophils % (0.8-7.0) % Basophils % (0.2-1.2) % Absolute Granulocytes (1.78-5.38) x10^3/uL Basophils # (0.01-0.08) x10^3/uL Sodium (135-145) mmol/L Potassium (3.5-5.1) mmol/L Chloride (98-107) mmol/L Carbon Dioxide (22-30) mmol/L Anion Gap (5-15) MEQ/L BUN (9-20) mg/dL Creatinine (0.66-1.25) mg/dL Estimated GFR ML/MIN Glucose (74-106) mg/dL POC Glucometer 181 H (74 to 106) mg/dL Lactic Acid (0.4-2.0) Calcium (8.4-10.2) mg/dL Magnesium (1.6-2.3) mg/dL Total Bilirubin (0.2-1.3) mg/dL AST (17-59) U/L ALT (0-50) U/L Alkaline Phosphatase (38-126) U/L Troponin I 0.016 (0.000-0.033) ng/mL Serum Total Protein (6.3-8.2) g/dL Albumin (3.5-5.0) g/dL Lipase (23-300) U/L Procalcitonin (0.030-0.080) ng/mL TSH 3rd Generation (0.470-4.680) mIU/L Urine Color (Yellow) Urine Appearance (Clear) Urine pH (4.6-8.0) Ur Specific [place] (1.005-1.030) Urine Protein (Negative) Urine Glucose (UA) (Negative) mg/dL Urine Ketones (Negative) Urine Blood (Negative) Urine Nitrite (Negative) Urine Bilirubin (Negative) Urine Urobilinogen (0.2) mg/dL Ur Leukocyte Esterase (Negative) U Hyaline Cast (Auto) (0-2) /LPF Urine Microscopic RBC (0-5) /HPF Urine Microscopic WBC (0-5) /HPF Ur Epithelial Cells (None Seen) /HPF Urine Bacteria (None Seen) /HPF Urine Mucus (NEGATIVE) /HPF Urine Culture Reflexed (NO) Radiology Exams: Radiology Procedures Category Date Time Status ABDOMEN AND PELVIS W/0 CONTRAS [CT] Stat Exams 12/30/23 15:28 Completed CERVICAL SPINE WO CONTRAST [CT] Stat Exams 12/30/23 15:28 Completed CHEST 1 VIEW (PORTABLE) Stat Exams 12/30/23 15:29 Completed HEAD WITHOUT CONTRAST [CT] Stat Exams 12/30/23 15:28 Completed Assessment/Plan (1) AMS (altered mental status) Current Visit: Yes Status: Acute Qualifiers: Altered mental status type: disorientation Qualified Code(s): R41.0 - Disorientation, unspecified Assessment & Plan: -Likely secondary to UTI, status post recent fall but no LOC -continue rocephin for UTI -CT head with no acute findings Code(s): R41.82 - ALTERED MENTAL STATUS, UNSPECIFIED (2) Acute UTI (urinary tract infection) Current Visit: Yes Status: Acute Assessment & Plan: -UA suspicious for infection with metabolic encephalopathy- continue rocephin - follow cultures Code(s): N39.0 - URINARY TRACT INFECTION, SITE NOT SPECIFIED (3) Colostomy care Current Visit: Yes Status: Acute Assessment & Plan: -History of colon cancer status post colostomy with decreased output recently likely from dehydration -CT abd/pelvis showing mild diffuse fecal stasis with left colostomy, pulmonary fibrosis/scarring -monitor output Code(s): Z43.3 - ENCOUNTER FOR ATTENTION TO COLOSTOMY (4) Generalized weakness Current Visit: Yes Status: Acute Assessment & Plan: -Likely from recent infections/debility - Fall precautions - PT eval Code(s): R53.1 - WEAKNESS (5) CAD (coronary artery disease) Current Visit: No Status: Chronic Qualifiers: Coronary Disease-Associated Artery/Lesion type: bypass graft [place] vs. transplanted heart: [place] heart Associated angina: without angina Qualified Code(s): I25.810 - Atherosclerosis of coronary artery bypass graft(s) without angina pectoris Assessment & Plan: -stable - continue home meds Code(s): I25.10 - ATHSCL HEART DISEASE OF [place] CORONARY ARTERY W/O ANG PCTRS (6) Fall Current Visit: Yes Status: Acute Assessment & Plan: -fell out of bed approximately 2 days ago -no LOC - most likely secondary to weakness with infection -CT head and cervical spine with no acute findings -CT abdomen and pelvis with mild diffuse fecal stasis with left colostomy, p ulmonary fibrosis/scarring -PT eval Code(s): W19.XXXA - UNSPECIFIED FALL, INITIAL ENCOUNTER
[2023-12-31 05:42] LABS: Absolute Neutrophil Ct (ANC) 3.12 x10^3/uL (1.78-5.38); BASOPHIL % 0.7 % (0.2-1.2); Basophil (Absolute #) 0.04 x10^3/uL (0.01-0.08); Eosinophil % 1.5 % (0.8-7.0); Eosinophil (Absolute #) 0.08 x10^3/uL (0.04-0.54); Hematocrit 39.6 % (40.1-51.0); Hemoglobin 12.3 g/dL (13.7-17.5); IMMATURE GRAN # 0.02 x10^3u/L (0.001-0.031); IMMATURE GRAN % 0.4 % (0.001-0.429); Lymphocyte (Absolute #) 1.59 x10^3/uL (1.32-3.57); Lymphocytes % 29.3 % (21.8-53.1); Mean Cell Volume 81.6 fL (79.0-92.2); Mean Corpuscular Hemoglobin 25.4 pg (25.7-32.2); Mean Corpuscular Hgb Concent. 31.1 g/dL (32.3-36.5); Mean Platelet Volume 10.4 fL (9.4-12.4); Monocyte (Absolute #) 0.57 x10^3/uL (0.30-0.82); Monocytes % 10.5 % (5.3-12.2); Neutrophil % 57.6 % (34.0-67.9); Platelet Count 167 x10^3/uL (163-337); Red Blood Count 4.85 x10^6/uL (4.63-6.08); Red Cell Distribution Width 15.4 % (11.6-14.4); White Blood Count 5.4 x10^3/uL (4.23-9.07)
[2023-12-31 05:44] LABS: ALBUMIN 3.6 g/dL (3.5-5.0); ANION GAP 12.6 MEQ/L (5-15); BILIRUBIN,TOTAL 0.5 mg/dL (0.2-1.3); Calcium 9.3 mg/dL (8.4-10.2); Creatinine 1 0.8 mg/dL (0.66-1.25); EST GLOMERULAR FILTRATION RATE 91.2 ML/MIN; Potassium 3.6 mmol/L (3.5-5.1); Total Protein 6.6 g/dL (6.3-8.2)
[2023-12-31] MEDS: Senokot-S Tablet PO SCH (06:58)
[2023-12-31] MEDS: Imdur 60MG PO SCH (08:13)
[2023-12-31] MEDS: Protonix 40MG Tablet PO SCH (08:14)
[2023-12-31] MEDS: Toprol Xl 100 MG PO SCH (08:14)
[2023-12-31] MEDS: Effexor XR 75 MG PO SCH (08:14)
[2023-12-31] MEDS: ROCEPHIN 1 GM / 100 ML NaCl 1 GM/100 ML IVPB IV SCH (08:17)
[2023-12-31] MEDS ORDERED: NON-FORMULARY ITEM (Venlafaxine Hcl [Effexor Xr] 150 MG Cap.Er.24h) PO SCH (10:00)
[2023-12-31] MEDS ORDERED: LAMOTRIGINE 200 MG PO SCH (10:00)
[2023-12-31] MEDS ORDERED: Dakin's Soln FULL STRENGTH TP SCH (14:00)
[2023-12-31] MEDS: HYSEPT MC SCH (14:44)
[2023-12-31] MEDS: PLAVIX Tablet PO SCH (16:45)
[2023-12-31] MEDS: TYLENOL 325 MG PO PRN (16:45)
[2023-12-31] MEDS: lamICTAL 100MG TABLET PO SCH (17:40)
[2023-12-31] MEDS: ECOTRIN 81 MG PO SCH (17:40)
[2024-01-01 06:19] LABS: Absolute Neutrophil Ct (ANC) 2.44 x10^3/uL (1.78-5.38); BASOPHIL % 1.1 % (0.2-1.2); Basophil (Absolute #) 0.05 x10^3/uL (0.01-0.08); Eosinophil % 1.5 % (0.8-7.0); Eosinophil (Absolute #) 0.07 x10^3/uL (0.04-0.54); Hematocrit 37.5 % (40.1-51.0); Hemoglobin 12.1 g/dL (13.7-17.5); IMMATURE GRAN # 0.01 x10^3u/L (0.001-0.031); IMMATURE GRAN % 0.2 % (0.001-0.429); Lymphocyte (Absolute #) 1.65 x10^3/uL (1.32-3.57); Mean Cell Volume 80.1 fL (79.0-92.2); Mean Corpuscular Hemoglobin 25.9 pg (25.7-32.2); Mean Corpuscular Hgb Concent. 32.3 g/dL (32.3-36.5); Mean Platelet Volume 10.7 fL (9.4-12.4); Monocyte (Absolute #) 0.49 x10^3/uL (0.30-0.82); Monocytes % 10.4 % (5.3-12.2); Neutrophil % 51.8 % (34.0-67.9); Platelet Count 179 x10^3/uL (163-337); Red Blood Count 4.68 x10^6/uL (4.63-6.08); White Blood Count 4.7 x10^3/uL (4.23-9.07)
[2024-01-01 06:37] LABS: ALBUMIN 3.6 g/dL (3.5-5.0); ANION GAP 13.1 MEQ/L (5-15); BILIRUBIN,TOTAL 0.6 mg/dL (0.2-1.3); Calcium 9.3 mg/dL (8.4-10.2); Creatinine 1 0.75 mg/dL (0.66-1.25); EST GLOMERULAR FILTRATION RATE 92.9 ML/MIN; Potassium 3.5 mmol/L (3.5-5.1); Total Protein 6.6 g/dL (6.3-8.2)
[2024-01-01 08:28] VITALS: BP 210/89; PULSE 64; RESP 20; TEMP 97.7; O2SAT 94
--- NOTE | 2024-01-01 08:49 | PCM.DS ---
Discharge Summary Date of Admission: 12/30/23 20:12 Date of Discharge: 01/01/24 Admitting Physician: JOSUÉ ARELLANO MD Consults: Consults on Case 12/30/23 21:23 Nutritional Consult ROUTINE Primary Care Provider: [facility] Allergies Allergies No Known Drug Allergies Allergy (Verified 12/30/23 14:55) Hospital Summary - Hospital Course Hospital Course: Mr. Ruby is a 78 year old male with a pmhx of paraplegia, coronary artery disease/CABG, hypertension, hyperlipidemia, colon cancer with permanent colostomy, decubitus ulcer with osteomyelitis of the lower back recently finis hed course of antibiotics, recurrent UTI admitted 12/30/23 for UTI with mild encephalopathy. Patient had fell out of bed approximately 2 days ago and and has been found to be more lethargic with increasing confusion with hallucinations per family report. Patient also endorsing LLQ and flank pain with decreased ostomy output. Lab findings with normal white count, chemistries fairly unremarkable with a normal lactate and procalcitonin of 0.09. Urinalysis pyuria. CT head and cervical spine with no acute findings. CT abdomen and pelvis with mild diffuse fecal stasis with left colostomy, pulmonary fibrosis/scarring, Dinero catheter in situ, arteriosclerotic disease, chronic. CXR with no acute fin dings. Patient started on rocephin in the ED. [facility] consulted and patient wishing to discharge on hospice today. Will send home on cefdinir for UTI. Discharge Note New Diagnosis: UTI New Medications: Cefdinir Follow Up: Hospice Results pending: ucult Latest Assessment & Plan (1) AMS (altered mental status) Current Visit: Yes Status: Acute Qualifiers: Altered mental status type: disorientation Qualified Code(s): R41.0 - Disorientation, unspecified Assessment & Plan: -Likely secondary to UTI, status post recent fall but no LOC -continue rocephin for UTI -CT head with no acute findings Code(s): R41.82 - ALTERED MENTAL STATUS, UNSPECIFIED (2) Acute UTI (urinary tract infection) Current Visit: Yes Status: Acute Assessment & Plan: -UA suspicious for infection with metabolic encephalopathy- continue cefdinir - follow cultures Code(s): N39.0 - URINARY TRACT INFECTION, SITE NOT SPECIFIED (3) Colostomy care Current Visit: Yes Status: Acute Assessment & Plan: -History of colon cancer status post colostomy with decreased output recently likely from dehydration -CT abd/pelvis showing mild diffuse fecal stasis with left colostomy, pulmonary fibrosis/scarring -monitor output Code(s): Z43.3 - ENCOUNTER FOR ATTENTION TO COLOSTOMY (4) Generalized weakness Current Visit: Yes Status: Acute Assessment & Plan: -Likely from recent infections/debility - Fall precautions - PT eval 12/31: -Home with hospice Code(s): R53.1 - WEAKNESS (5) CAD (coronary artery disease) Current Visit: No Status: Chronic Qualifiers: Coronary Disease-Associated Artery/Lesion type: bypass graft [place] vs. transplanted heart: [place] heart Associated angina: without angina Qualified Code(s): I25.810 - Atherosclerosis of coronary artery bypass graft(s) without angina pectoris Assessment & Plan: -stable - continue home meds Code(s): I25.10 - ATHSCL HEART DISEASE OF [place] CORONARY ARTERY W/O ANG PCTRS (6) Fall Current Visit: Yes Status: Acute Assessment & Plan: -fell out of bed approximately 2 days ago -no LOC - most likely secondary to weakness with infection -CT head and cervical spine with no acute findings -CT abdomen and pelvis with mild diffuse fecal stasis with left colostomy, pulm onary fibrosis/scarring -PT eval I spent 35 minutes [id number] with the patient on the day of discharge performing discharge exam, discussing hospital stay and discharge instructions with patient and caregivers, preparation of discharge records, prescriptions & referral forms and addressing any questions/concerns the patient had as documented above. - Vitals & Intake/Output Vital Signs: Vital Signs Temperature 98.1 F 01/01/24 04:00 Pulse Rate 60 01/01/24 04:00 Respiratory Rate 18 01/01/24 04:00 Blood Pressure 197/82 01/01/24 04:00 O2 Sat by Pulse Oximetry 97 01/01/24 04:00 Intake & Output: Intake & Output 12/29/23 12/30/23 12/31/23 01/01/24 11:59 11:59 11:59 11:59 Intake Total 1091 460 Output Total 250 2450 Balance 841 -1990 Weight 91.6 kg - Lab Result Diagrams: 01/01/24 04:00 01/01/24 05:30 Lab Results-Last 24 Hrs: Lab Results-Last 24 Hours 12/31/23 12/31/23 01/01/24 Range/Units 12:10 21:52 04:00 WBC 4.7 (4.23-9.07) x10^3/uL RBC 4.68 (4.63-6.08) x10^6/uL Hgb 12.1 L (13.7-17.5) g/dL Hct 37.5 L (40.1-51.0) % MCV 80.1 (79.0-92.2) fL MCH 25.9 (25.7-32.2) pg MCHC 32.3 (32.3-36.5) g/dL RDW 15.0 H (11.6-14.4) % Plt Count 179 (163-337) x10^3/uL MPV 10.7 (9.4-12.4) fL Gran % 51.8 (34.0-67.9) % Immature Gran % (Auto) 0.2 (0.001-0.429) % Nucleat RBC Rel Count 0.0 (0.00-0.2) % Eos # (Auto) 0.07 (0.04-0.54) x10^3/uL Immature Gran # (Auto) 0.01 (0.001-0.031) x10^3u/L Absolute Lymphs (auto) 1.65 (1.32-3.57) x10^3/uL Absolute Monos (auto) 0.49 (0.30-0.82) x10^3/uL Absolute Nucleated RBC 0.00 (0.00-0.012) x10^3u/L Lymphocytes % 35.0 (21.8-53.1) % Monocytes % 10.4 (5.3-12.2) % Eosinophils % 1.5 (0.8-7.0) % Basophils % 1.1 (0.2-1.2) % Absolute Granulocytes 2.44 (1.78-5.38) x10^3/uL Basophils # 0.05 (0.01-0.08) x10^3/uL Sodium (135-145) mmol/L Potassium (3.5-5.1) mmol/L Chloride (98-107) mmol/L Carbon Dioxide (22-30) mmol/L Anion Gap (5-15) MEQ/L BUN (9-20) mg/dL Creatinine (0.66-1.25) mg/dL Estimated GFR ML/MIN Glucose (74-106) mg/dL POC Glucometer 117 H 106 (74 to 106) mg/dL Calcium (8.4-10.2) mg/dL Total Bilirubin (0.2-1.3) mg/dL AST (17-59) U/L ALT (0-50) U/L Alkaline Phosphatase (38-126) U/L Serum Total Protein (6.3-8.2) g/dL Albumin (3.5-5.0) g/dL 01/01/24 01/01/24 Range/Units 05:30 08:05 WBC (4.23-9.07) x10^3/uL RBC (4.63-6.08) x10^6/uL Hgb (13.7-17.5) g/dL Hct (40.1-51.0) % MCV (79.0-92.2) fL MCH (25.7-32.2) pg MCHC (32.3-36.5) g/dL RDW (11.6-14.4) % Plt Count (163-337) x10^3/uL MPV (9.4-12.4) fL Gran % (34.0-67.9) % Immature Gran % (Auto) (0.001-0.429) % Nucleat RBC Rel Count (0.00-0.2) % Eos # (Auto) (0.04-0.54) x10^3/uL Immature Gran # (Auto) (0.001-0.031) x10^3u/L Absolute Lymphs (auto) (1.32-3.57) x10^3/uL Absolute Monos (auto) (0.30-0.82) x10^3/uL Absolute Nucleated RBC (0.00-0.012) x10^3u/L Lymphocytes % (21.8-53.1) % Monocytes % (5.3-12.2) % Eosinophils % (0.8-7.0) % Basophils % (0.2-1.2) % Absolute Granulocytes (1.78-5.38) x10^3/uL Basophils # (0.01-0.08) x10^3/uL Sodium 138 (135-145) mmol/L Potassium 3.5 (3.5-5.1) mmol/L Chloride 108 H (98-107) mmol/L Carbon Dioxide 20 L (22-30) mmol/L Anion Gap 13.1 (5-15) MEQ/L BUN 10 (9-20) mg/dL Creatinine 0.75 (0.66-1.25) mg/dL Estimated GFR 92.9 ML/MIN Glucose 120 H (74-106) mg/dL POC Glucometer 135 H (74 to 106) mg/dL Calcium 9.3 (8.4-10.2) mg/dL Total Bilirubin 0.60 (0.2-1.3) mg/dL AST 23 (17-59) U/L ALT 25 (0-50) U/L Alkaline Phosphatase 122 (38-126) U/L Serum Total Protein 6.6 (6.3-8.2) g/dL Albumin 3.6 (3.5-5.0) g/dL Micro Results-Entire Visit: Accuchecks Date 12/31/23 - Radiology Exams Ordered Rad Exams-Entire Visit: Radiology Procedures Category Date Time Status ABDOMEN AND PELVIS W/0 CONTRAS [CT] Stat Exams 12/30/23 15:28 Completed CERVICAL SPINE WO CONTRAST [CT] Stat Exams 12/30/23 15:28 Completed CHEST 1 VIEW (PORTABLE) Stat Exams 12/30/23 15:29 Completed HEAD WITHOUT CONTRAST [CT] Stat Exams 12/30/23 15:28 Completed - Procedures and Test Procedures and Tests throughout Hospitalization: Therapy Orders & Screens 12/31/23 08:00 PT Eval & Treat (MD Order) ONCE Reason for Eval:: weakness, recent fall Diagnosis: Acute UTI, altered mental status, generalized weakness Discharge Exam General Appearance: no apparent distress Neurologic Exam: alert, cooperative, confusion Eye Exam: PERRL Ears, Nose, Throat Exam: normal ENT inspection Neck Exam: normal inspection Respiratory Exam: normal breath sounds, lungs clear Cardiovascular Exam: regular rate/rhythm, normal heart sounds Gastrointestinal/Abdomen Exam: soft, normal bowel sounds, other (colostomy) Male Genitalia Exam: deferred Rectal Exam: deferred Back Exam: normal inspection Extremity Exam: normal inspection, paralysis Skin Exam: normal color Wound Assessment: Skin/Wound Assessment Wound/Incision Assessment Start: 12/30/23 20:44 Text: Status: Active Freq: Q6H Protocol: Document 01/01/24 03:00 KD (Rec: 01/01/24 03:05 KD [id number]) Wound/Incision Assessment bilateral lower legs Wound Assessment Shift Assessment Wound Type Abrasion Wound Stage Non Pressure Wound Drainage Amount None General Appearance Open to air,Clean/Dry Wound Bed Greatest Portion Red (Granulation) Surrounding Tissue [place] Comment bilateral shins with abrasions Medial Sacrum Wound Assessment Shift Assessment Wound Type Pressure Ulcer Dressing Status Dry & Intact Drainage Amount None Length (cm) (cm) 4 Width (cm) (cm) 3.5 Depth (cm) (cm) 3.5 Topical Solution/Irrigant Dakins Irrigant Packing Type Gauze Pads,Alginate Primary Dressing Absorbant Pad Comment UNDERMINING NOTED 1.5CM AT 1200 TUNNELING NOTED 2.5CM AT 2:00, 0.5CM AT 10:00 - remains true Wound Photo Photo Taken No Final Diagnosis/Problem List - Final Discharge Diagnosis/Problem (1) AMS (altered mental status) Current Visit: Yes Status: Acute Code(s): R41.82 - ALTERED MENTAL STATUS, UNSPECIFIED (2) Acute UTI (urinary tract infection) Current Visit: Yes Status: Acute Code(s): N39.0 - URINARY TRACT INFECTION, SITE NOT SPECIFIED (3) Colostomy care Current Visit: Yes Status: Chronic Code(s): Z43.3 - ENCOUNTER FOR ATTENTION TO COLOSTOMY (4) Generalized weakness Current Visit: Yes Status: Chronic Code(s): R53.1 - WEAKNESS (5) CAD (coronary artery disease) Current Visit: No Status: Chronic Code(s): I25.10 - ATHSCL HEART DISEASE OF [place] CORONARY ARTERY W/O ANG PCTRS (6) Fall Current Visit: Yes Status: Acute Code(s): W19.XXXA - UNSPECIFIED FALL, INITIAL ENCOUNTER - Discharge Discharge Date: 01/01/24 (Disposition - [facility]) Condition: Stable Prescriptions: New Cefdinir 300 mg PO BID 7 Days #14 cap Continue Venlafaxine HCl [Effexor Xr] 150 mg PO DAILY Testosterone Cypionate 100 mg IM UD Isosorbide Mononitrate [Isosorbide Mononitrate ER] 60 mg PO DAILY Atorvastatin Calcium [Lipitor] 40 mg PO HS Naloxegol Oxalate [Movantik] 25 mg PO QAM Clopidogrel Bisulfate [PLAVIX Tablet] 75 mg PO DINNER Aspirin [Aspirin EC] 81 mg PO EVENING MEAL Metoprolol Succinate 100 mg [Toprol Xl 100 MG] 100 mg PO DAILY #90 tablet.sa Trazodone HCl 50 mg [Desyrel 50 mg] 50 mg PO HS Nitroglycerin 0.4 mg SL UD Gabapentin [Gralise] 600 mg PO LUNCH Finasteride 5 mg [Proscar 5 MG] 5 mg PO HS Dicyclomine HCl 20 mg [Bentyl 20 mg] 20 mg PO QID Sennosides/Docusate Sodium [Docusate Sodium-Sennosides Tab] 1 tab PO HS Methenamine Hippurate 1 tab PO BID Gabapentin [Gralise] 1,800 mg PO EVENING MEAL Ranolazine 500 MG [Ranexa 500 MG] 500 mg PO BID Lidocaine [Lidocaine Pain Relief] 1 each TP DAILY PRN PRN Reason: Pain lamoTRIgine [Lamotrigine] 200 mg PO DAILY Tapentadol HCl [Nucynta] 100 mg PO Q4-6HPRN PRN PRN Reason: Pain PANTOPRAZOLE 40 mg Tablet [Protonix 40MG Tablet] 40 mg PO DAILY Instructions: Urinary tract infection - Discharge instructions Additional Instructions: [facility] TO ASSUME CARE Follow up with: JOSI MAURER MD [Family Provider] - 01/11/24 3:00 pm
== END 2024-01-01 11:13 | disposition hospice, home (50) ==
LOC: ED 14:42 → MED SURG 20:12
PROVIDERS: ADMIT Internal Medicine Nephrology; ATTEND Internal Medicine Nephrology
DX: N39.0 Urinary tract infection, site not specified (principal); R41.0 Disorientation, unspecified; G82.20 Paraplegia, unspecified; I25.10 Atherosclerotic heart disease of native coronary artery without angina pectoris; I10 Essential (primary) hypertension; M86.9 Osteomyelitis, unspecified; E78.5 Hyperlipidemia, unspecified; W19.XXXA Unspecified fall, initial encounter; R53.1 Weakness; Z85.038 Personal history of other malignant neoplasm of large intestine; Z95.0 Presence of cardiac pacemaker; Z93.3 Colostomy status; Z79.01 Long term (current) use of anticoagulants
CPT/HCPCS: 36000; 36415; 51702; 70450; 71045; 72125; 74176; 80053; 81001; 82947; 83605; 83690; 83735; 84145; 84443; 84484; 85025; 87040; 87086; 96365; 97161; 99285; G0378; Q3014; J0696; A9270-GY

== ENCOUNTER 2024-03-28 14:52 | Emergency (ER) | payer MEDICARE, OTHER ==
[2024-03-28 15:05] VITALS: TEMP 97.2
[2024-03-28] MEDS ORDERED: Sodium Chloride 0.9% 1000 ML 1,000 ML ONE (15:33)
[2024-03-28] MEDS: Sodium Chloride 0.9% 1000 ML 1,000 ML IV SCH (15:35)
[2024-03-28 15:40] LABS: Absolute Neutrophil Ct (ANC) 6.59 x10^3/uL (1.78-5.38); BASOPHIL % 0.5 % (0.2-1.2); Basophil (Absolute #) 0.05 x10^3/uL (0.01-0.08); Eosinophil (Absolute #) 0 x10^3/uL (0.04-0.54); Hematocrit 35.1 % (40.1-51.0); Hemoglobin 10.8 g/dL (13.7-17.5); IMMATURE GRAN # 0.28 x10^3u/L (0.001-0.031); IMMATURE GRAN % 2.9 % (0.001-0.429); Lymphocyte (Absolute #) 1.76 x10^3/uL (1.32-3.57); Lymphocytes % 18.4 % (21.8-53.1); Mean Cell Volume 83.8 fL (79.0-92.2); Mean Corpuscular Hemoglobin 25.8 pg (25.7-32.2); Mean Corpuscular Hgb Concent. 30.8 g/dL (32.3-36.5); Mean Platelet Volume 9.6 fL (9.4-12.4); Monocytes % 9.4 % (5.3-12.2); Neutrophil % 68.8 % (34.0-67.9); Platelet Count 283 x10^3/uL (163-337); Red Blood Count 4.19 x10^6/uL (4.63-6.08); Red Cell Distribution Width 15.9 % (11.6-14.4); White Blood Count 9.6 x10^3/uL (4.23-9.07)
[2024-03-28 15:55] LABS: ALBUMIN 3.8 g/dL (3.5-5.0); ANION GAP 13.6 MEQ/L (5-15); BILIRUBIN,TOTAL 0.5 mg/dL (0.2-1.3); Calcium 9.1 mg/dL (8.4-10.2); Creatinine 1 1.34 mg/dL (0.66-1.25); EST GLOMERULAR FILTRATION RATE 54.6 ML/MIN; Potassium 5.3 mmol/L (3.5-5.1)
[2024-03-28 16:19] VITALS: O2SAT 95
--- NOTE | 2024-03-28 16:19 | ERPHSYRPT ---
- History of Present Illness Time Seen by Provider: 03/28/24 15:10 Source: patient Exam Limitations: no limitations Patient Subjective Stated Complaint: pt here for bleeding to right foot, pt is paraplegic and is unsure how he injured hes right great toe Triage Nursing Assessment: pt alert, arrived per wc, pt placed in bed with assist of 2 nurses, pt has skin tear to right great toe, has bleeding to toe, pressure applied Physician History: 78-year-old male paraplegic presents to our ED with a bleeding right great toe. Patient has a skin tear at the medial aspect of the right great toe. Patient has poor distal sensation and does not recall injuring his foot. Bleeding occurred just prior to arrival. No active pain. No other injuries reported. Patient is on blood thinner and is oozing from his wound. Patient otherwise feels well. at bedside. They voiced no other complaints or concerns at this time. Portions of this note were created with voice recognition technology. There may be grammatical, spelling, punctuation or sound alike errors Timing/Duration: today Severity: mild Modifying Factors: Improves With: nothing Associated Symptoms: denies symptoms Allergies/Adverse Reactions: No Known Drug Allergies Allergy (Verified 03/28/24 15:04) Home Medications: Testosterone Cypionate 100 mg IM UD 05/18/16 [History] Venlafaxine HCl [Effexor Xr] 150 mg PO DAILY 05/18/16 [History] Atorvastatin Calcium [Lipitor] 40 mg PO HS 01/18/17 [History] Isosorbide Mononitrate [Isosorbide Mononitrate ER] 60 mg PO DAILY 01/18/17 [History] Naloxegol Oxalate [Movantik] 25 mg PO QAM 10/09/18 [History] Aspirin [Aspirin EC] 81 mg PO EVENING MEAL 01/06/19 [History] Clopidogrel Bisulfate [PLAVIX Tablet] 75 mg PO DINNER 01/06/19 [History] Trazodone HCl 50 mg [Desyrel 50 mg] 50 mg PO HS 04/03/19 [History] Nitroglycerin 0.4 mg SL UD 05/06/21 [History] Dicyclomine HCl 20 mg [Bentyl 20 mg] 20 mg PO QID 05/14/23 [History] Finasteride 5 mg [Proscar 5 MG] 5 mg PO HS 05/14/23 [History] Gabapentin [Gralise] 1,800 mg PO EVENING MEAL 05/14/23 [History] Gabapentin [Gralise] 600 mg PO LUNCH 05/14/23 [History] Methenamine Hippurate 1 tab PO BID 05/14/23 [History] Sennosides/Docusate Sodium [Docusate Sodium-Sennosides Tab] 1 tab PO HS 05/14/23 [History] Lidocaine [Lidocaine Pain Relief] 1 each TP DAILY PRN 07/07/23 [History] Ranolazine 500 MG [Ranexa 500 MG] 500 mg PO BID 07/07/23 [History] Tapentadol HCl [Nucynta] 100 mg PO Q4-6HPRN PRN 12/13/23 [History] lamoTRIgine [Lamotrigine] 200 mg PO DAILY 12/13/23 [History] PANTOPRAZOLE 40 mg Tablet [Protonix 40MG Tablet] 40 mg PO DAILY 12/30/23 [History] Hx Tetanus, Diphtheria Vaccination/Date Given: No Hx Influenza Vaccination/Date Given: No Hx Pneumococcal Vaccination/Date Given: No Immunizations Up to Date: Yes Travel Risk - International Travel Have you traveled outside of the country in past 3 weeks: No - Emerging Infectious Disease Are you exhibiting symptoms associated with any current EIDs: No Symptoms: Abdominal Pain - Review of Systems Constitutional: No Symptoms, No Fever, No Chills Eyes: No Symptoms Ears, Nose, & Throat: No Symptoms Respiratory: No Symptoms, No Cough, No Dyspnea Cardiac: No Symptoms, No Chest Pain, No Edema, No Syncope Abdominal/Gastrointestinal: No Symptoms, No Abdominal Pain, No Nausea, No Vomiting, No Diarrhea Genitourinary Symptoms: No Symptoms, No Dysuria Musculoskeletal: No Symptoms, No Back Pain, No Neck Pain Skin: No Symptoms, No Rash Neurological: No Symptoms, No Dizziness, No Focal Weakness, No Sensory Changes Psychological: No Symptoms Endocrine: No Symptoms Hematologic/Lymphatic: No Symptoms Immunological/Allergic: No Symptoms All Other Systems: Reviewed and Negative - Past Medical History Pertinent Past Medical History: Yes Neurological History: Other ENT History: Cataracts Cardiac History: Coronary Artery Disease, High Cholesterol, Hypertension, Other Respiratory History: Sleep Apnea Endocrine Medical History: Diabetes Type II Musculoskeletal History: Arthritis GI Medical History: Colorectal Cancer, GI Bleed History: No Pertinent History Psycho-Social History: No Pertinent History Male Reproductive Disorders: No Pertinent History Other Medical History: Cardiac stents, CABG x 4. Spinal cord injury 2010, quadraplegia. Hx of cervical fx, unable to recall date. watching carotids- scanned apr 2021. pressure wound to bottom- healing and being treated - Past Surgical History Past Surgical History: Yes Neuro Surgical History: No Pertinent History Cardiac: CABG, Cardiac Catheterization, Cardiac Stent Respiratory: No Pertinent History Gastrointestinal: Appendectomy, Cholecystectomy, Colon Resection Genitourinary: Other Musculoskeletal: Orthopedic Surgery Male Surgical History: No Pertinent History Other Surgical History: BACK reconstruction quadrapalegic t3-T7. Left leg operation times 3, COLON CA AND RESECTION IN JAN, 2016, CABG 2015, fall 2011, wound on buttock cultured pos. suprapubic cath attempted only- unsuccessful Significant Family History: heart disease, diabetes - Social History Smoking Status: Former smoker How long have you smoked: 40 years Exposure to second hand smoke: No Alcohol Use: None Drug Use: none Patient Lives Alone: No - Social Determinants of Health Will the patient participate in the screening: Yes Do you worry about a steady place to live?: No Do you have any problems with any of the following?: No known problems In the past 12 months,have you had to go without utilities?: No Transportation Issues: No Has anyone in your support network made you feel unsafe?: No Have you or anyone in your house had to go without enough: No - Nursing Vital Signs Nursing Vital Signs: Initial Vital Signs Temperature 97.2 F 03/28/24 15:04 Pulse Rate 71 03/28/24 15:04 Respiratory Rate 16 03/28/24 15:04 Blood Pressure 85/46 03/28/24 15:04 O2 Sat by Pulse Oximetry 95 03/28/24 15:04 Pain Scale Pain Intensity 0 - Physical Exam General Appearance: no apparent distress, alert Eye Exam: PERRL/EOMI, eyes nml inspection Ears, Nose, Throat Exam: normal ENT inspection, moist mucous membranes Neck Exam: normal inspection, supple, full range of motion Respiratory Exam: normal breath sounds, lungs clear, airway intact, No respiratory distress Cardiovascular Exam: regular rate/rhythm, normal peripheral pulses Gastrointestinal/Abdomen Exam: soft, No tenderness, No mass Back Exam: normal inspection, normal range of motion, No CVA tenderness, No vertebral tenderness Extremity Exam: normal inspection, normal range of motion, pelvis stable Neurologic Exam: alert, oriented x 3, cooperative, normal mood/affect, sensation nml, No motor deficits Skin Exam: normal color, warm, dry, other (There is a 2 x 2 cm skin tear medial aspect of right great toe. Cap refill less than 2 seconds. Compartments are soft. Toenail intact. No signs of infection), No rash Lymphatic Exam: No adenopathy SpO2 Interpretation: normal SpO2: 95 O2 Delivery: Room Air - Course Nursing assessment & vital signs reviewed: Yes EKG Interpreted by Me: RATE ([id number]), Sinus Rhythm, NORMAL AXIS, NORMAL INTERVALS, NORMAL QRS Ordered Tests: Active Orders 24 hr Category Date Time Status IV Insertion STAT Care 03/28/24 15:09 Active FOOT (MINIMUM 3 VIEWS) Stat Exams 03/28/24 15:01 Completed CBC W DIFF Stat Lab 03/28/24 15:28 Completed CMP Stat Lab 03/28/24 15:28 Completed Medication Summary Generic Name Dose Route Start Last Admin Trade Name Freq PRN Reason Stop Dose Admin Sodium Chloride 1,000 mls @ 100 mls/hr 03/28/24 15:15 03/28/24 15:35 Sodium Chloride 0.9% 1000 Ml IV 04/27/24 15:14 100 mls/hr .Q10H SHAI Administration Lab/Rad Data: Laboratory Result Diagrams 03/28/24 15:28 03/28/24 15:28 Laboratory Results 03/28/24 03/28/24 Range/Units 15:28 15:28 WBC 9.6 H (4.23-9.07) x10^3/uL RBC 4.19 L (4.63-6.08) x10^6/uL Hgb 10.8 L (13.7-17.5) g/dL Hct 35.1 L (40.1-51.0) % MCV 83.8 (79.0-92.2) fL MCH 25.8 (25.7-32.2) pg MCHC 30.8 L (32.3-36.5) g/dL RDW 15.9 H (11.6-14.4) % Plt Count 283 (163-337) x10^3/uL MPV 9.6 (9.4-12.4) fL Gran % 68.8 H (34.0-67.9) % Immature Gran % (Auto) 2.9 H (0.001-0.429) % Nucleat RBC Rel Count 0.0 (0.00-0.2) % Eos # (Auto) 0 L (0.04-0.54) x10^3/uL Immature Gran # (Auto) 0.28 H (0.001-0.031) x10^3u/L Absolute Lymphs (auto) 1.76 (1.32-3.57) x10^3/uL Absolute Monos (auto) 0.90 H (0.30-0.82) x10^3/uL Absolute Nucleated RBC 0.00 (0.00-0.012) x10^3u/L Lymphocytes % 18.4 L (21.8-53.1) % Monocytes % 9.4 (5.3-12.2) % Eosinophils % 0.0 L (0.8-7.0) % Basophils % 0.5 (0.2-1.2) % Absolute Granulocytes 6.59 H (1.78-5.38) x10^3/uL Basophils # 0.05 (0.01-0.08) x10^3/uL Sodium 135 (135-145) mmol/L Potassium 5.3 H (3.5-5.1) mmol/L Chloride 105 (98-107) mmol/L Carbon Dioxide 22 (22-30) mmol/L Anion Gap 13.6 (5-15) MEQ/L BUN 27 H (9-20) mg/dL Creatinine 1.34 H (0.66-1.25) mg/dL Estimated GFR 54.6 ML/MIN Glucose 118 H (74-106) mg/dL Calcium 9.1 (8.4-10.2) mg/dL Total Bilirubin 0.50 (0.2-1.3) mg/dL AST 41 (17-59) U/L ALT 30 (0-50) U/L Alkaline Phosphatase 143 H (38-126) U/L Serum Total Protein 7.0 (6.3-8.2) g/dL Albumin 3.8 (3.5-5.0) g/dL - Progress Progress: improved Progress Note: 78-year-old male presents to our ED for evaluation of an injured great toe. X- ray negative for fracture dislocation. However while patient was here we observed patient's blood pressure to be a little lower than his baseline. Basic labs obtained. Patient was observed to have acute renal injury elevated creatinine. BUN/creatinine ratio was 20:1 likely secondary to dehydration. Potassium was 5.3 normal being 5.1.. IV fluids infused. EKG obtained to assess for changes related to potassium. No EKG changes concerning for hyperkalemia. Patient's blood pressure normalized after liter of fluids. Patient will require follow-up with his primary care doctor within 48 hours. Repeat lab draw indicated to further assess kidney function and associated electrolytes. Patient is currently asymptomatic. He is now requesting discharge. at [facility]. They agree to follow-up with her primary care doctor within 48 hours for reevaluation. They voiced no other complaints or concerns at this time. Portions of this note were created with voice recognition technology. There may be grammatical, spelling, punctuation or sound alike errors Complexity of problem addressed is moderate acute complicated no critical care time. Complex of data reviewed and analyzed is moderate. Test ordered chest reviewed results analyzed and correlated clinically with history and physical exam. Risk of complication and or risk of morbidity/mortality of patient management is moderate.. A prescription for Keflex forwarded to patient's pharmacy. Vital stable. Time spent to discharge patient is approximately 20 minutes. Plan of care established for shared decision making. No social determinants of health present to impede follow-up. Portions of this note were created with voice recognition technology. There may be grammatical, spelling, punctuation or sound alike errors 03/28/24 17:20 Counseled pt/family regarding: diagnosis ([employer]), need for follow- up - Departure Departure Disposition: Home Clinical Impression: Acute renal injury, Skin tear on toe, Dehydration, Normocytic anemia Condition: Stable Critical Care Time: No Referrals: [facility] [Primary Care Provider] - Follow up/PCP as directed Additional Instructions: Discharge/Care Plan LAI GLASER CEASARLOBITO was seen on 03/28/24 in the Emergency Room. The patient was counseled regarding Diagnosis,Lab results, Imaging studies, need for follow up and when to return to the Emergency Room. Prescriptions given: Discharge Note I have spoken with the patient and/or caregivers. I have explained the patient's condition, diagnosis and treatment plan based on the information available to me at this time. I have answered the patient's and/or caregiver's questions and addressed any concerns. The patient and/or caregivers have as good understanding of the patient's diagnosis, condition and treatment plan as can be expected at this point. The vital signs have been stable. The patient's condition is stable and appropriate for discharge from the emergency department. The patient will pursue further outpatient evaluation with the primary care physician or other designated or consulting physician as outlined in the discharge instructions. The patient and/or caregivers are agreeable to this plan of care and follow-up instructions have been explained in detail. The patient and/or caregivers have received these instruction. The patient/and or caregivers are aware that any significant change in condition or worsening of symptoms s hould prompt an immediate return to this or the closest emergency department or call 911. Prescriptions: Cephalexin Mh 500 mg [Keflex 500 mg] 500 mg PO TID 7 Days #21 cap
--- NOTE | 2024-03-28 16:22 | XRAY ---
Indication: Great toe laceration. Comparison: August 10, 2023 3 portable views right foot demonstrates new medial 1st toe soft tissue swelling/laceration with overlying bandage. Remaining foot unchanged again with osteopenia, mild 1st MTP degenerative changes, and mild scattered vascular calcifications.
[2024-03-28 17:40] VITALS: BP 132/63; PULSE 68; RESP 18
== END 2024-03-28 18:04 | disposition home or self-care (01) ==
LOC: ED 14:52
DX: S91.111A Laceration without foreign body of right great toe without damage to nail, initial encounter (principal); N17.9 Acute kidney failure, unspecified; E86.0 Dehydration; D64.9 Anemia, unspecified; G82.20 Paraplegia, unspecified; T14.8XXS Other injury of unspecified body region, sequela; E78.5 Hyperlipidemia, unspecified; I10 Essential (primary) hypertension; E11.9 Type 2 diabetes mellitus without complications; Z79.02 Long term (current) use of antithrombotics/antiplatelets; Z79.899 Other long term (current) drug therapy
CPT/HCPCS: 36415; 73630; 80053; 85025; 99284

== ENCOUNTER 2024-06-24 11:32 | Emergency (ER) | payer MEDICARE, OTHER ==
[2024-06-24 11:40] VITALS: TEMP 97.7
--- NOTE | 2024-06-24 11:43 | ERPHSYRPT ---
- History of Present Illness Historian: patient, EMS, old records Exam Limitations: no limitations Patient Subjective Stated Complaint: Pt states "I hurt all over and I slept all day yesterday and did not take any of my medications yesterday." Triage Nursing Assessment: Pt presented alert and oriented X 3, skin pwd. Pt able to speak in clear full sentences. Pt resting comfortably on the bed. Physician History: This is a 78-year-old white male patient brought to the emergency department by the paramedics from home and is a patient Dr. Javed with a complaint of abdominal pain, achiness all over and sleepiness. Symptoms have been present fo r couple days. Patient's appetite is decreased. Patient slept all day yesterday and did not take any of his medications. Patient is a quadriplegic. He has had no nausea vomiting or diarrhea symptoms. He has a history of decubitus ulcers of the sacrum and bilateral lower extremities that have been managed as an outpatient. He has a left sided abdominal colostomy and has been functioning normally. Patient has a history of coronary artery disease (cardiac stents and CABG) and is on Plavix. He has a history of hyperlipidemia, hypertension, type 2 diabetes and a history of colorectal cancer. Timing/Duration: yesterday Activities at Onset: none Quality: aching Abdominal Pain Onset Location: epigastric Pain Radiation: no radiation Severity of Pain-Max: moderate Severity of Pain-Current: moderate Modifying Factors: Improves With: nothing Associated Symptoms: loss of appetite, No chest pain, No fever/chills, No shortness of breath, No vomiting Previous symptoms: no prior history, no recent treatment Allergies/Adverse Reactions: No Known Drug Allergies Allergy (Verified 03/28/24 15:04) Home Medications: Venlafaxine HCl [Effexor Xr] 150 mg PO DAILY 05/18/16 [History] Atorvastatin Calcium [Lipitor] 40 mg PO HS 01/18/17 [History] Isosorbide Mononitrate [Isosorbide Mononitrate ER] 60 mg PO DAILY 01/18/17 [History] Naloxegol Oxalate [Movantik] 25 mg PO QAM 10/09/18 [History] Aspirin [Aspirin EC] 81 mg PO EVENING MEAL 01/06/19 [History] Clopidogrel Bisulfate [PLAVIX Tablet] 75 mg PO DINNER 10/25/19 [History] Trazodone HCl 50 mg [Desyrel 50 mg] 50 mg PO HS 04/03/19 [History] Dicyclomine HCl 20 mg [Bentyl 20 mg] 10 mg PO QID 05/14/23 [History] Gabapentin [Gralise] 1,800 mg PO EVENING MEAL 05/14/23 [History] Gabapentin [Gralise] 600 mg PO LUNCH 05/14/23 [History] Methenamine Hippurate 1 tab PO BID 05/14/23 [History] Ranolazine 500 MG [Ranexa 500 MG] 500 mg PO BID 07/07/23 [History] Tapentadol HCl [Nucynta] 100 mg PO Q4-6HPRN PRN 12/13/23 [History] PANTOPRAZOLE 40 mg Tablet [Protonix 40MG Tablet] 40 mg PO DAILY 12/30/23 [History] Bisacodyl 5 mg [Dulcolax 5 mg] 5 mg PO HS 06/24/24 [History] Cephalexin Mh 500 mg [Keflex 500 mg] 250 mg PO DAILY 06/24/24 [History] Cetirizine HCl 10 mg PO DAILY 06/24/24 [History] Losartan Potassium 50 mg [Cozaar 50 MG] 50 mg PO HS 06/24/24 [History] Metoclopramide HCl 5 mg PO TID 06/24/24 [History] Hx Tetanus, Diphtheria Vaccination/Date Given: No Hx Influenza Vaccination/Date Given: No Hx Pneumococcal Vaccination/Date Given: No Immunizations Up to Date: No Travel Risk - International Travel Have you traveled outside of the country in past 3 weeks: No - Emerging Infectious Disease Are you exhibiting symptoms associated with any current EIDs: No Symptoms: Abdominal Pain - Review of Systems Constitutional: Weakness Eyes: No Symptoms Ears, Nose, & Throat: No Symptoms Respiratory: No Symptoms Cardiac: No Symptoms Abdominal/Gastrointestinal: Abdominal Pain (Epigastrium), Appetite Changes Genitourinary Symptoms: No Symptoms Musculoskeletal: Arthralgias, Myalgias Skin: No Symptoms Neurological: No Symptoms Psychological: No Symptoms Endocrine: No Symptoms Hematologic/Lymphatic: No Symptoms Immunological/Allergic: No Symptoms All Other Systems: Reviewed and Negative - Past Medical History Pertinent Past Medical History: Yes Neurological History: Other ENT History: Cataracts Cardiac History: Coronary Artery Disease, High Cholesterol, Hypertension, Other Respiratory History: Sleep Apnea Endocrine Medical History: Diabetes Type II Musculoskeletal History: Arthritis GI Medical History: Colorectal Cancer, GI Bleed History: No Pertinent History Psycho-Social History: No Pertinent History Male Reproductive Disorders: No Pertinent History Other Medical History: Cardiac stents, CABG x 4. Spinal cord injury 2010, quadraplegia. Hx of cervical fx, unable to recall date. watching carotids- scanned apr 2021. pressure wound to bottom- healing and being treated - Past Surgical History Past Surgical History: Yes Neuro Surgical History: No Pertinent History Cardiac: CABG, Cardiac Catheterization, Cardiac Stent Respiratory: No Pertinent History Gastrointestinal: Appendectomy, Cholecystectomy, Colon Resection Genitourinary: Other Musculoskeletal: Orthopedic Surgery Male Surgical History: No Pertinent History Other Surgical History: BACK reconstruction quadrapalegic t3-T7. Left leg operation times 3, COLON CA AND RESECTION IN JAN, 2016, CABG 2015, fall 2011, wound on buttock cultured pos. suprapubic cath attempted only- unsuccessful Significant Family History: heart disease, diabetes - Social History Smoking Status: Former smoker How long have you smoked: 40 years Exposure to second hand smoke: No Drug Use: none - Social Determinants of Health Will the patient participate in the screening: Yes Do you worry about a steady place to live?: No Do you have any problems with any of the following?: No known problems In the past 12 months,have you had to go without utilities?: No Transportation Issues: No Has anyone in your support network made you feel unsafe?: No Have you or anyone in your house had to go w/o enough food: No - Nursing Vital Signs Nursing Vital Signs: Initial Vital Signs Temperature 97.7 F 06/24/24 11:33 Pulse Rate 66 06/24/24 11:33 Respiratory Rate 18 06/24/24 11:33 Blood Pressure 140/64 06/24/24 11:33 O2 Sat by Pulse Oximetry 100 06/24/24 11:33 Pain Scale Pain Intensity 0 - Physical Exam General Appearance: no apparent distress, alert, anxiety Eye Exam: PERRL/EOMI, eyes nml inspection Ears, Nose, Throat Exam: normal ENT inspection, moist mucous membranes Neck Exam: normal inspection, non-tender, supple, full range of motion Respiratory Exam: normal breath sounds, lungs clear, airway intact, No chest tenderness, No respiratory distress Cardiovascular Exam: regular rate/rhythm, normal heart sounds, normal peripheral pulses Gastrointestinal/Abdomen Exam: soft, normal bowel sounds, tenderness (Gastrium), guarding (Epigastrium to palpation) Rectal Exam: not done Back Exam: normal inspection, normal range of motion, No CVA tenderness, No vertebral tenderness Extremity Exam: other (Patient is a quadriplegic. Patient has bilateral lower extremities wrapped from his feet to his knees) Neurologic Exam: alert, oriented x 3, cooperative Skin Exam: normal color, warm, dry Lymphatic Exam: No adenopathy SpO2 Interpretation: normal SpO2: 100 O2 Delivery: Room Air - Course Nursing assessment & vital signs reviewed: Yes EKG Interpreted by Me: RATE (69), Sinus Rhythm, NORMAL AXIS, NORMAL QRS, Other (Prolonged UT interval. QTc is 425. No acute ischemia present.) Ordered Tests: Active Orders 24 hr Category Date Time Status EKG-ER Only STAT Care 06/24/24 11:50 Active IV Insertion STAT Care 06/24/24 11:50 Active ABDOMEN AND PELVIS W/0 CONTRAS [CT] Stat Exams 06/24/24 11:51 Completed AMYLASE Stat Lab 06/24/24 12:30 Completed BLOOD CULTURE Stat Lab 06/24/24 12:30 Received CBC W DIFF Stat Lab 06/24/24 12:30 Completed CMP Stat Lab 06/24/24 12:30 Completed CULTURE,URINE Stat Lab 06/24/24 11:51 Received LIPASE Stat Lab 06/24/24 12:30 Completed Lactic Acid Stat Lab 06/24/24 11:50 Completed MONO SCREEN Stat Lab 06/24/24 12:30 Completed TROPONIN Q4H Lab 06/24/24 12:30 Completed TROPONIN Q4H Lab 06/24/24 16:00 Ordered TROPONIN Q4H Lab 06/24/24 20:00 Ordered UA W/RFX UR CULTURE Stat Lab 06/24/24 11:50 Completed Medication Summary Generic Name Dose Route Start Last Admin Trade Name Freq PRN Reason Stop Dose Admin Sodium Chloride 1,000 mls @ 100 mls/hr 06/24/24 12:00 06/24/24 12:00 Sodium Chloride 0.9% 1000 Ml IV 07/24/24 11:59 100 mls/hr .Q10H SHAI Administration Discontinued Medications Generic Name Dose Route Start Last Admin Trade Name Vern PRN Reason Stop Dose Admin Ceftriaxone Sodium 1 gm in 100 mls @ 200 mls/hr 06/24/24 13:23 06/24/24 13:30 Rocephin 1 Gm / 100 Ml Nacl IV 06/24/24 13:52 100 mls/hr STAT ONE 100 mls/hr Administration Ceftriaxone Sodium Confirm 06/24/24 13:29 Rocephin 1 Gm / 100 Ml Nacl Administered 06/24/24 13:30 Dose 1 gm in 100 mls @ ud IV .STK-MED ONE Lab/Rad Data: Laboratory Result Diagrams 06/24/24 12:30 06/24/24 12:30 Laboratory Results 06/24/24 06/24/24 06/24/24 Range/Units 12:30 12:30 12:30 WBC (4.23-9.07) x10^3/uL RBC (4.63-6.08) x10^6/uL Hgb (13.7-17.5) g/dL Hct (40.1-51.0) % MCV (79.0-92.2) fL MCH (25.7-32.2) pg MCHC (32.3-36.5) g/dL RDW (11.6-14.4) % Plt Count (163-337) x10^3/uL MPV (9.4-12.4) fL Gran % (34.0-67.9) % Immature Gran % (Auto) (0.001-0.429) % Nucleat RBC Rel Count (0.00-0.2) % Eos # (Auto) (0.04-0.54) x10^3/uL Immature Gran # (Auto) (0.001-0.031) x10^3u/L Absolute Lymphs (auto) (1.32-3.57) x10^3/uL Absolute Monos (auto) (0.30-0.82) x10^3/uL Absolute Nucleated RBC (0.00-0.012) x10^3u/L Lymphocytes % (21.8-53.1) % Monocytes % (5.3-12.2) % Eosinophils % (0.8-7.0) % Basophils % (0.2-1.2) % Absolute Granulocytes (1.78-5.38) x10^3/uL Basophils # (0.01-0.08) x10^3/uL Sodium 139 (135-145) mmol/L Potassium 4.0 (3.5-5.1) mmol/L Chloride 107 (98-107) mmol/L Carbon Dioxide 23 (22-30) mmol/L Anion Gap 13.1 (5-15) MEQ/L BUN 15 (9-20) mg/dL Creatinine 0.62 L (0.66-1.25) mg/dL Estimated GFR 98.4 ML/MIN Glucose 140 H (74-106) mg/dL Lactic Acid (0.4-2.0) Calcium 9.2 (8.4-10.2) mg/dL Total Bilirubin 0.80 (0.2-1.3) mg/dL AST 124 H (17-59) U/L ALT 131 H (0-50) U/L Alkaline Phosphatase 290 H (38-126) U/L Troponin I < 0.012 (0.000-0.033) ng/mL Serum Total Protein 5.7 L (6.3-8.2) g/dL Albumin 3.3 L (3.5-5.0) g/dL Amylase 92 (30-110) U/L Lipase 339 H (23-300) U/L Urine Color (Yellow) Urine Appearance (Clear) Urine pH (4.6-8.0) Ur Specific [place] (1.005-1.030) Urine Protein (Negative) Urine Glucose (UA) (Negative) mg/dL Urine Ketones (Negative) Urine Blood (Negative) Urine Nitrite (Negative) Urine Bilirubin (Negative) Urine Urobilinogen (0.2) mg/dL Ur Leukocyte Esterase (Negative) U Hyaline Cast (Auto) (0-2) /LPF Urine Microscopic RBC (0-5) /HPF Urine Microscopic WBC (0-5) /HPF Ur Epithelial Cells (None Seen) /HPF Urine Bacteria (None Seen) /HPF Urine Yeast (Budding) (None Seen) /HPF Urine Culture Reflexed (NO) Monoscreen NEGATIVE (NEGATIVE) Influenza Type A Ag (NEGATIVE) Influenza Type B Ag (NEGATIVE) RSV (PCR) (NEGATIVE) SARS-CoV-2 (PCR) (NEGATIVE) 0406/24/24 06/24/24 Range/Units 12:30 12:29 11:50 WBC 5.6 (4.23-9.07) x10^3/uL RBC 4.20 L (4.63-6.08) x10^6/uL Hgb 10.1 L (13.7-17.5) g/dL Hct 33.5 L (40.1-51.0) % MCV 79.8 (79.0-92.2) fL MCH 24.0 L (25.7-32.2) pg MCHC 30.1 L (32.3-36.5) g/dL RDW 17.1 H (11.6-14.4) % Plt Count 194 (163-337) x10^3/uL MPV 9.7 (9.4-12.4) fL Gran % 61.4 (34.0-67.9) % Immature Gran % (Auto) 0.4 (0.001-0.429) % Nucleat RBC Rel Count 0.0 (0.00-0.2) % Eos # (Auto) 0.02 L (0.04-0.54) x10^3/uL Immature Gran # (Auto) 0.02 (0.001-0.031) x10^3u/L Absolute Lymphs (auto) 1.68 (1.32-3.57) x10^3/uL Absolute Monos (auto) 0.41 (0.30-0.82) x10^3/uL Absolute Nucleated RBC 0.00 (0.00-0.012) x10^3u/L Lymphocytes % 30.1 (21.8-53.1) % Monocytes % 7.3 (5.3-12.2) % Eosinophils % 0.4 L (0.8-7.0) % Basophils % 0.4 (0.2-1.2) % Absolute Granulocytes 3.44 (1.78-5.38) x10^3/uL Basophils # 0.02 (0.01-0.08) x10^3/uL Sodium (135-145) mmol/L Potassium (3.5-5.1) mmol/L Chloride (98-107) mmol/L Carbon Dioxide (22-30) mmol/L Anion Gap (5-15) MEQ/L BUN (9-20) mg/dL Creatinine (0.66-1.25) mg/dL Estimated GFR ML/MIN Glucose (74-106) mg/dL Lactic Acid 1.9 (0.4-2.0) Calcium (8.4-10.2) mg/dL Total Bilirubin (0.2-1.3) mg/dL AST (17-59) U/L ALT (0-50) U/L Alkaline Phosphatase (38-126) U/L Troponin I (0.000-0.033) ng/mL Serum Total Protein (6.3-8.2) g/dL Albumin (3.5-5.0) g/dL Amylase (30-110) U/L Lipase (23-300) U/L Urine Color (Yellow) Urine Appearance (Clear) Urine pH (4.6-8.0) Ur Specific [place] (1.005-1.030) Urine Protein (Negative) Urine Glucose (UA) (Negative) mg/dL Urine Ketones (Negative) Urine Blood (Negative) Urine Nitrite (Negative) Urine Bilirubin (Negative) Urine Urobilinogen (0.2) mg/dL Ur Leukocyte Esterase (Negative) U Hyaline Cast (Auto) (0-2) /LPF Urine Microscopic RBC (0-5) /HPF Urine Microscopic WBC (0-5) /HPF Ur Epithelial Cells (None Seen) /HPF Urine Bacteria (None Seen) /HPF Urine Yeast (Budding) (None Seen) /HPF Urine Culture Reflexed (NO) Monoscreen (NEGATIVE) Influenza Type A Ag NEGATIVE (NEGATIVE) Influenza Type B Ag NEGATIVE (NEGATIVE) RSV (PCR) NEGATIVE (NEGATIVE) SARS-CoV-2 (PCR) NEGATIVE (NEGATIVE) 06/24/24 Range/Units 11:50 WBC (4.23-9.07) x10^3/uL RBC (4.63-6.08) x10^6/uL Hgb (13.7-17.5) g/dL Hct (40.1-51.0) % MCV (79.0-92.2) fL MCH (25.7-32.2) pg MCHC (32.3-36.5) g/dL RDW (11.6-14.4) % Plt Count (163-337) x10^3/uL MPV (9.4-12.4) fL Gran % (34.0-67.9) % Immature Gran % (Auto) (0.001-0.429) % Nucleat RBC Rel Count (0.00-0.2) % Eos # (Auto) (0.04-0.54) x10^3/uL Immature Gran # (Auto) (0.001-0.031) x10^3u/L Absolute Lymphs (auto) (1.32-3.57) x10^3/uL Absolute Monos (auto) (0.30-0.82) x10^3/uL Absolute Nucleated RBC (0.00-0.012) x10^3u/L Lymphocytes % (21.8-53.1) % Monocytes % (5.3-12.2) % Eosinophils % (0.8-7.0) % Basophils % (0.2-1.2) % Absolute Granulocytes (1.78-5.38) x10^3/uL Basophils # (0.01-0.08) x10^3/uL Sodium (135-145) mmol/L Potassium (3.5-5.1) mmol/L Chloride (98-107) mmol/L Carbon Dioxide (22-30) mmol/L Anion Gap (5-15) MEQ/L BUN (9-20) mg/dL Creatinine (0.66-1.25) mg/dL Estimated GFR ML/MIN Glucose (74-106) mg/dL Lactic Acid (0.4-2.0) Calcium (8.4-10.2) mg/dL Total Bilirubin (0.2-1.3) mg/dL AST (17-59) U/L ALT (0-50) U/L Alkaline Phosphatase (38-126) U/L Troponin I (0.000-0.033) ng/mL Serum Total Protein (6.3-8.2) g/dL Albumin (3.5-5.0) g/dL Amylase (30-110) U/L Lipase (23-300) U/L Urine Color Yellow (Yellow) Urine Appearance Clear (Clear) Urine pH 7.5 (4.6-8.0) Ur Specific [place] 1.015 (1.005-1.030) Urine Protein 30 (Negative) Urine Glucose (UA) Negative (Negative) mg/dL Urine Ketones Negative (Negative) Urine Blood Negative (Negative) Urine Nitrite Negative (Negative) Urine Bilirubin Negative (Negative) Urine Urobilinogen 0.2 (0.2) mg/dL Ur Leukocyte Esterase Large A (Negative) U Hyaline Cast (Auto) NONE SEEN (0-2) /LPF Urine Microscopic RBC 0-2 (0-5) /HPF Urine Microscopic WBC 21-50 A (0-5) /HPF Ur Epithelial Cells None Seen (None Seen) /HPF Urine Bacteria Rare A (None Seen) /HPF Urine Yeast (Budding) Few A (None Seen) /HPF Urine Culture Reflexed ORDERED SEPARATELY (NO) Monoscreen (NEGATIVE) Influenza Type A Ag (NEGATIVE) Influenza Type B Ag (NEGATIVE) RSV (PCR) (NEGATIVE) SARS-CoV-2 (PCR) (NEGATIVE) - Progress Progress: improved Progress Note: 06/24/24 11:49 My medical decision making and the assignment of at least moderate complexity of this patient's medical issue today is based on review of the patient's past medical history, review the patient's medication list, review the patient drug allergy list, history present illness and physical findings on examination. The workup in this patient includes placement of intravenous line, CBC, CMP, blood cultures, amylase, lipase, urinalysis, twelve-lead EKG, troponin level, viral swabs, monotest and CT scan of the abdomen pelvis without contrast. Differential diagnosis includes but is not limited to acute intra-abdominal or pelvic abnormality, pancreatitis, colitis, diverticulitis, viral illness, arrhythmia, myocardial infarction, electrolyte abnormalities, urinary tract infection 06/24/24 14:03 I interpreted the patient's laboratory data results. The results show the patient has a significant urinary tract infection. He has a normal white count with no left shift. His anion gap, lactic acid and CO2 are all normal. Patient's amylase is normal and lipase is slightly elevated. He has had chronic recurrent history of this finding. He has elevated liver function tests as well. CT scan of the abdomen pelvis without contrast was interpreted by the radiologist and I reviewed the impression. Impression states no new or acute findings/pathology. There is bilateral perinephric stranding. There is no renal calculi. There is no hydronephrosis. Counseled pt/family regarding: lab results, diagnosis, need for follow-up, rad results Medical Desision Making - Independent Historian Additional History obtained from: Spouse - Diagnostic Testing Diagnostic test were ordered, analyzed, and reviewed by me: Yes Radiological Interpretation: Reviewed by me, Teleradiologist Report - Risk of complications The pt has a mod risk of morbidity or mortality based on: Need for prescription drug management - Departure Departure Disposition: Home Clinical Impression: Urinary tract infection Condition: Stable Critical Care Time: No Referrals: PAUL JAMES FNP [Primary Care Provider] - Follow up/PCP as directed Additional Instructions: Drink plenty of clear liquids. Avoid fatty greasy spicy foods. Take all your medications as prescribed. Call your prescribing provider on 06/26/2024, to make arrangements for follow-up appointment for further evaluation and management. Prescriptions: Levofloxacin [Levaquin 500 MG Tablet] 500 mg PO DAILY #7 tablet
[2024-06-24] MEDS: Sodium Chloride 0.9% 1000 ML 1,000 ML IV SCH (12:00)
[2024-06-24 12:45] LABS: Absolute Neutrophil Ct (ANC) 3.44 x10^3/uL (1.78-5.38); BASOPHIL % 0.4 % (0.2-1.2); Basophil (Absolute #) 0.02 x10^3/uL (0.01-0.08); Eosinophil % 0.4 % (0.8-7.0); Eosinophil (Absolute #) 0.02 x10^3/uL (0.04-0.54); Hematocrit 33.5 % (40.1-51.0); Hemoglobin 10.1 g/dL (13.7-17.5); IMMATURE GRAN # 0.02 x10^3u/L (0.001-0.031); IMMATURE GRAN % 0.4 % (0.001-0.429); Lymphocyte (Absolute #) 1.68 x10^3/uL (1.32-3.57); Lymphocytes % 30.1 % (21.8-53.1); Mean Cell Volume 79.8 fL (79.0-92.2); Mean Corpuscular Hgb Concent. 30.1 g/dL (32.3-36.5); Mean Platelet Volume 9.7 fL (9.4-12.4); Monocyte (Absolute #) 0.41 x10^3/uL (0.30-0.82); Monocytes % 7.3 % (5.3-12.2); Neutrophil % 61.4 % (34.0-67.9); Platelet Count 194 x10^3/uL (163-337); Red Cell Distribution Width 17.1 % (11.6-14.4); White Blood Count 5.6 x10^3/uL (4.23-9.07)
[2024-06-24 12:56] LABS: ALBUMIN 3.3 g/dL (3.5-5.0); ANION GAP 13.1 MEQ/L (5-15); BILIRUBIN,TOTAL 0.8 mg/dL (0.2-1.3); Calcium 9.2 mg/dL (8.4-10.2); Creatinine 1 0.62 mg/dL (0.66-1.25); EST GLOMERULAR FILTRATION RATE 98.4 ML/MIN; Total Protein 5.7 g/dL (6.3-8.2)
[2024-06-24 13:09] LABS: Appearance Clear (Clear); Bilirubin Negative (Negative); Blood Negative (Negative); Epithelial Cells None Seen /HPF (None Seen); Glucose, Urine Negative (Negative); Hyaline Casts NONE SEEN /LPF (0-2); Ketones Negative (Negative); Leukocyte Esterase Large (Negative); Nitrite Negative (Negative); Ph 7.5 (4.6-8.0); Protein,Urine Dip 30 (Negative); Specific Gravity 1.015 (1.005-1.030); Urobilinogen 0.2 mg/dL (0.2)
[2024-06-24 13:11] LABS: Bacteria Rare /HPF (None Seen); Budding Yeast Few /HPF (None Seen); RBC 0-2 /HPF (0-5); WBC 21-50 /HPF (0-5)
--- NOTE | 2024-06-24 13:28 | XRAY ---
CLINICAL HISTORY: Epigastric ABD pain COMPARISON: CT dated 04/11/2024. TECHNIQUE: Non-contrast CT of the abdomen and pelvis was performed, with the following protocol: axial images, and reconstructed coronal and sagittal images. One of the following dose reduction techniques was utilized for this exam: Automated exposure control, adjustment of the mA and/or kV according to patient size, and use of iterative reconstruction. FINDINGS: Abdomen: Liver: Normal in size, shape, and density. No focal lesions, cysts, or masses were identified. Gallbladder and Biliary System: The gallbladder is surgically removed Pancreas: Pancreatic head, body, and tail are visualized and appear normal in size and density. No pancreatic masses or calcifications were noted. Spleen: Normal in size, shape, and density. No splenic lesions or masses were identified. Appendix: The appendix is normal in size without cecelia-appendiceal fat stranding and without an appendicolith. No evidence of appendiceal abscess or perforation. Kidneys and Adrenal Glands: Both kidneys are normal in size, shape, and position. Cortical thickness is within normal limits. Bilateral perinephric stranding is noted. No renal calculi or hydronephrosis. Adrenal glands are unremarkable. Abdominal Aorta and Vessels: The abdominal aorta and major branches are patent without evidence of an aneurysm. , Moderate atherosclerosis. Pelvis: Urinary Bladder: Minimally filled and is catheterized Prostate: Not visualized Seminal Vesicles: Normal appearance without abnormal enlargement or mass. Peritoneal and Retroperitoneal Structures: No free fluid or abnormal fluid collections were identified within the abdomen or pelvis. A few enlarged retroperitoneal lymph nodes are noted Bowel: The visualized bowel loops are normal in caliber and appearance. No evidence of bowel obstruction or wall thickening. Colostomy is noted Bones and Soft Tissues: The visualized osseous structure shows degenerative changes The left femur shows non-healed femur fracture with extensive periosteal reaction Internal fixation of the spine Multiple reduced height of the vertebral bodies collapse A generalized decrease in bone density is noted Diffuse atrophy of the muscle is noted The bilateral hip joint shows synovial thickening. There is lower back subcutaneous fat stranding and suspected skin ulceration IMPRESSION: 1. No acute pathology is noted. 2. Bilateral perinephric stranding is noted 3. Ulcers are noted at pressure points 4. Multilevel vertebral collapse noted 5. Rest is described above 6. No new findings Electronically Signed by: James Noble MD. (06/24/2024 13:24:32 EDT)
[2024-06-24] MEDS ORDERED: ROCEPHIN 1 GM / 100 ML NaCl 1 GM/100 ML IVPB IV ONE (13:29)
[2024-06-24] MEDS: ROCEPHIN 1 GM / 100 ML NaCl 1 GM/100 ML IVPB IV ONE (13:30)
[2024-06-24 13:59] LABS: INFLUENZA A NEGATIVE (NEGATIVE); INFLUENZA B NEGATIVE (NEGATIVE); RESPIRATORY SYNCTIAL VIRUS NEGATIVE (NEGATIVE); SARS-CoV-2 Xpert Express NEGATIVE (NEGATIVE)
[2024-06-24] MEDS: DIFLUCAN PO ONE (15:24)
[2024-06-24] MEDS: Diflucan 100 MG PO ONE (15:25)
[2024-06-24 16:06] VITALS: O2SAT 98
[2024-06-24 16:17] VITALS: BP 136/88; PULSE 70; RESP 18
== END 2024-06-24 16:17 | disposition home or self-care (01) ==
LOC: ED 11:32
DX: N39.0 Urinary tract infection, site not specified (principal); R10.9 Unspecified abdominal pain; M79.10 Myalgia, unspecified site; R40.0 Somnolence; G82.50 Quadriplegia, unspecified; S14.109S Unspecified injury at unspecified level of cervical spinal cord, sequela; E78.5 Hyperlipidemia, unspecified; I10 Essential (primary) hypertension; E11.9 Type 2 diabetes mellitus without complications; Z79.02 Long term (current) use of antithrombotics/antiplatelets; Z79.891 Long term (current) use of opiate analgesic; Z79.899 Other long term (current) drug therapy
CPT/HCPCS: 0241U; 36415; 74176; 80053; 81001; 82150; 83605; 83690; 84484; 85025; 86308; 87040; 87086; 93005; 96365; 99285; 99284; J0696; A9270-GY

== ENCOUNTER 2024-07-18 06:13 | Day surgery (SDC) | payer MEDICARE, OTHER ==
[2024-07-18] MEDS: CEFAZOLIN 2 GM/100 ML NaCl 2 GM/100 ML IVPB IV SCH (06:43)
[2024-07-18] MEDS: Lactated Ringers 1,000 ML IV SCH (06:44)
[2024-07-18 06:57] VITALS: RESP 16
[2024-07-18] MEDS ORDERED: Sensorcaine 0.25% 10 ML ONE (07:19)
[2024-07-18] MEDS ORDERED: XYLOCAINE 1% HCL 20 ML MDV ONE (07:19)
[2024-07-18] MEDS ORDERED: Marcaine Mpf 0.5% Vial 30 Ml ONE (07:20)
[2024-07-18] MEDS ORDERED: Xylocaine 1% Vial 30 ML PF IJ ONE (07:20)
[2024-07-18 09:05] VITALS: BP 141/57; PULSE 63; TEMP 96.4; O2SAT 98
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
== END 2024-07-18 09:31 | disposition home or self-care (01) ==
LOC: SDC 06:13
PROVIDERS: ATTEND Podiatrist Foot & Ankle Surgery
DX: L89.890 Pressure ulcer of other site, unstageable (principal); I73.9 Peripheral vascular disease, unspecified; I87.2 Venous insufficiency (chronic) (peripheral); G82.20 Paraplegia, unspecified
CPT/HCPCS: 11042; 11043; 13160; J0690